=== PATIENT | female | born 1985 | race Caucasian/White ===

== ENCOUNTER 2023-09-16 09:46 | Outpatient (OUT) | payer OTHER, SELFPAY ==
--- NOTE | 2023-09-16 09:59 | US_ITS ---
The [address] [address] Patient Name: ANTONIO YOST MRN: [id number] date: 1985 Sex: F Assigned Patient Location: Current Patient Location: Accession/Order Number: [id number] Exam Date: 09/16/2023 10:15 Report Date: 09/19/2023 07:45 At the request of: YANN ESTRADA Procedure: US pelvis w/ transvaginal EXAMINATION: US pelvis w/ transvaginal HISTORY: pelvic pain and bloating COMPARISON: No relevant comparison available. TECHNIQUE: Transabdominal and/or transvaginal sonographic examination was performed as indicated by examination type. FINDINGS: UTERUS: Hysterectomy. RIGHT OVARY: Normal size and appearance. Duplex Doppler demonstrates normal waveform and flow; resistive index 0.5. Ovary size: 4.5 x 2.3 x 2.8 cm LEFT OVARY: Complex, avascular cystic structures with internal debris arising from within/from left ovary, largest is 7.0 cm. Duplex Doppler demonstrates normal waveform and flow; resistive index 0.5. Ovary size: 10.3 x 5.6 x 6.3 cm CUL-DE-SAC: Unremarkable. No significant free fluid. BLADDER: Unremarkable. OTHER: None. US/US pelvis w/ transvaginal IMPRESSION: 1. Several complex cysts arising from the left ovary, possibly endometriomas. Follow-up ultrasound evaluation of the pelvis in 6 weeks is recommended to document stability versus change. Electronically authenticated by: CEFERINO LUDWIG Date: 09/19/2023 07:45
--- NOTE | 2023-09-16 10:30 | MM_ITS ---
Patient Name: ANTONIO YOST MR#: [id number] : 1985 Exam Date: 09/16/2023 Ordering Doctor: YANG Redmond CNP RADIOLOGY REPORT PROCEDURE: MM TOMOSYNTHESIS SCREENING BI COMPARISON: MAMMO POST BIOPSY RIGHT, 04/26/2022. MG MAMM DIAGNOSTIC 3D SERVANDO CAD, 04/16/2022. INDICATIONS: encounter for screening mammogram for malignancy Calculator Name NCI Breast Cancer Risk Assessment Tool 5 Year Breast Cancer Risk 1.30% Lifetime Breast Cancer Risk 14.50% Personal Breast Cancer No Personal Ovarian Cancer No Treatments None Family Cancers Son with kidney cancer at age 3; Grandmother-maternal with leukemia cancer at age ~60; Brother with leukemia cancer at age 1. LOCATION: [facility] BREAST COMPOSITION: There are scattered areas of fibroglandular density. FINDINGS: DIAGNOSTIC CATEGORY 2--BENIGN FINDING. NO CHANGE FROM COMPARISON. Scattered benign-appearing calcifications are present. RIGHT BREAST: Stable lobular 3.7 cm previously biopsied mass right mid breast upper outer quadrant with an associated micro clip marker. LEFT BREAST: No significant suspicious finding. RECOMMENDATIONS: ROUTINE MAMMOGRAM AND CLINICAL EVALUATION IN 12 MONTHS. PLEASE NOTE: A NORMAL MAMMOGRAM DOES NOT EXCLUDE THE POSSIBILITY OF BREAST CANCER. A CLINICALLY SUSPICIOUS PALPABLE LUMP SHOULD BE BIOPSIED. Dictated by: Tyler Lacey MD on 09/16/2023 at 13:36 Approved by: Tyler Lacey MD on 09/16/2023 at 13:38
== END 2023-09-16 09:47 | disposition home or self-care (01) ==
PROVIDERS: PCP Nurse Practitioner; Visit Provider Nurse Practitioner
DX: R14.0 Abdominal distension (gaseous) (principal); R10.2 Pelvic and perineal pain; Z12.31 Encounter for screening mammogram for malignant neoplasm of breast; Z80.6 Family history of leukemia; Z80.51 Family history of malignant neoplasm of kidney; N83.292 Other ovarian cyst, left side
CPT/HCPCS: 76830; 76856; 77063; 77067

== ENCOUNTER 2023-09-21 08:21 | Outpatient (OUT) | payer OTHER, SELFPAY ==
--- OUTSIDE RECORDS SUMMARY | 2023-09-21 08:40 | XMS_ITS | CCD ---
Author Organization [facility]iniSyn[facility] Care Team Providers Care Millstone Cleaner Name Role Phone PCP, NO Primary Care Unavailable MENDEL CORADO Attending Unavailable MENDEL CORADO Referring Unavailable AICLINDA SERVIN Primary Care Physician Halley BARBOSA Attending Unavailable AICHLINDA MINAYA Referring Unavailabl e Halley BARBOSA Attending Unavailable Halley BARBOSA Attending Unavailable Halley BARBOSA Referring Unavailable AICHHOLZ, BOAT HAND LINDA Primary Care Unavailable AICHHOLZ, BOAT HAND LINDA Admitting Unavailable AICHHOLZ, BOAT HAND LINDA Consulting Unavailable AICHHOLZ, BOAT HAND LINDA Attending Unavailable AICHHOLZ, BOAT HAND LINDA Admitting Unavailable AICHHOLZ, BOAT HAND LINDA Consulting Unavailable AICHHOLZ, BOAT HAND LINDA Attending Unavailable AICHHOLZ, BOAT HAND LINDA Primary Care Unavailable AICHHOLZ, BOAT HAND LINDA Consulting Unavailable AICHHOLZ, BOAT HAND LINDA Attending Unavailable AICHHOLZ, BOAT HAND LINDA Admitting Unavailable AICHHOLZ, BOAT HAND LINDA Primary Care Unavailable DR TODD DORANTES Consulting Unavailable KIANA CHURCH Consulting Unavailable AICHHOLZ, BOAT HAND LINDA Consulting Unavailable AICHHOLZ, BOAT HAND LINDA Attending Unavailable AICHHOLZ, BOAT HAND LINDA Admitting Unavailable AICHHOLZ, BOAT HAND LINDA Primary Care Unavailable DR TODD DORANTES Consulting Unavailable NILL ., DR ROWLEY Attending Unavailable NILL ., DR ROWLEY Admitting Unavailable AICHHOLZ, BOAT HAND LINDA Primary Care Unavailable NILL ., DR ROWLEY Consulting Unavailable MINGO WHITMAN, VLAD Consulting Unavailable ALDO ELIZABETH Consulting Unavailable JED LINK Consulting Unavailable NILL ., DR ROWLEY Admitting Unavailable NILL ., DR ROWLEY Consulting Unavailable AICHHOLZ, BOAT HAND LINDA Primary Care Unavailable NILL ., DR ROWLEY Attending Unavailable AICHHOLZ, BOAT HAND LINDA Primary Care Unavailable RENZO ., DR RICHARDSON Admitting Unavailable RENZO ., DR RICHARDSON Consulting Unavailable RENZO ., DR RICHARDSON Attending Unavailable RENZO ., DR RICHARDSON Consulting Unavailable RENZO ., DR RICHARDSON Attending Unavailable RENZO ., DR RICHARDSON Admitting Unavailable AICHHOLZ, BOAT HAND LINDA Primary Care Unavailable AICHHOLZ, BOAT HAND LINDA Primary Care Unavailable RENZO ., DR RICHARDSON Consulting Unavailable RENZO ., DR RICHARDSON Attending Unavailable RENZO ., DR RICHARDSON Admitting Unavailable ROBERT HOPKINS Consulting Unavailable ABDI GALVAN Consulting Unavailable AICHHOLZ, BOAT HAND LINDA Primary Care Unavailable AICHHOLZ, BOAT HAND LINDA Attending Unavailable AICHHOLZ, BOAT HAND LINDA Admitting Unavailable AICHHOLZ, BOAT HAND LINDA Consulting Unavailable AICHHOLZ, BOAT HAND LINDA Consulting Unavailable AICHHOLZ, BOAT HAND LINDA Attending Unavailable AICHHOLZ, BOAT HAND LINDA Admitting Unavailable AICHHOLZ, BOAT HAND LINDA Primary Care Unavailable AICHHOLZ, BOAT HAND LINDA Admitting Unavailable AICHHOLZ, BOAT HAND LINDA Primary Care Unavailable AICHHOLZ, BOAT HAND LINDA Consulting Unavailable AICHHOLZ, BOAT HAND LINDA Attending Unavailable AICHHOLZ, BOAT HAND LINDA Primary Care Unavailable AICHHOLZ, BOAT HAND LINDA Admitting Unavailable AICHHOLZ, BOAT HAND LINDA Consulting Unavailable AICHHOLZ, BOAT HAND LINDA Attending Unavailable AICHHOLZ, LINDA Attending Unavailable Allergies Allergy Classification Reported Allergen(s) Allergy Type Date of Onset Reaction(s) Facility (3 sources) Cephalexin; Translations: [cephalexin] Drug Allergy Syncope (disorder) General Surgery [place] (2 sources) Cephalexin Drug Allergy [facility] Medications Current Medications Medication Drug Class(es) Dates Sig (Normalized) Sig (Original) busPIRone hydrochloride 15 mg oral tablet (2 sources) Start: 03-03-2022 busPIRone 15 mg Tab 22.5 mg = 1.5 tab(s), Oral, BID, Refills(s) 0 Start Date: 03/03/22 Status: Ordered clonazePAM 0.5 mg oral tablet (2 sources) Benzodiazepine Start: 03-03-2022 take 1 tablet by mouth three times daily ClonazePAM 0.5 mg Tab 0.5 mg = 1 tab(s), Oral, TID, Refills(s) 0 Start Date: 03/03/22 Status: Ordered escitalopram 20 mg oral tablet (2 sources) Serotonin Reuptake Inhibitor Start: 03-03-2022 take 1 tablet by mouth once daily Lexapro 20 mg Tab 20 mg = 1 tab(s), Oral, Daily, Refills(s) 0 Start Date: 03/03/22 Status: Ordered ferrous sulfate 325 mg delayed release oral tablet (2 sources) Start: 03-05-2022 take 1 tablet by mouth twice daily ferrous sulfate 325 mg oral enteric coated tablet 325 mg = 1 tab(s), Oral, BID, Refills(s) 0 Start Date: 03/05/22 Status: Ordered loratadine 10 mg oral tablet (2 sources) Start: 03-03-2022 take 1 tablet by mouth once daily loratadine 10 mg Tab 10 mg = 1 tab(s), Oral, Daily, Refills(s) 0 Start Date: 03/03/22 Status: Ordered Multi Vitamins oral tablet (2 sources) Start: 03-03-2022 take 1 tablet by mouth once daily Multi Vitamins oral tablet 1 tab(s), Oral, Daily, Refill(s) 0 Start Date: 03/03/22 Status: Ordered pantoprazole 40 mg delayed release oral tablet (2 sources) Proton Pump Inhibitor Start: 03-03-2022 take 1 tablet by mouth once daily Pantoprazole [address] Tab 40 mg = 1 tab(s), Oral, Daily, Refills(s) 0 Start Date: 03/03/22 Status: Ordered sucralfate 1000 mg oral tablet (1 source) Aluminum Complex Start: 04-14-2022 Carafate 1 gram Tab 1 gm = 1 tab(s), Oral, QIDACHS, Refills(s) 0 Start Date: 04/14/22 Status: Ordered Problems Active Problems Problem Classification Problem Date Documented Da te Episodic/Chronic Abdominal pain (5 sources) Pelvic and perineal pain; Translations: [Upper abdominal pain, unspecified] Onset: 04-07-2022 Episodic Anxiety disorders (3 sources) Mixed anxiety and depressive disorder; Translations: [Anxiety disorder, unspecified] Onset: 04-14-2022 03-03-2022 Chronic Blindness and vision defects (2 sources) Visual impairment 03-03-2022 Chronic Deficiency and other anemia (3 sources) Iron deficiency anemia; Translations: [Iron deficiency anemia, unspecified] Onset: 03-05-2022 Episodic Deficiency and other anemia (5 sources) Iron deficiency anemia, unspecified; Translations: [IRON DEFICIENCY ANEMIA UNSPECIFIED] Onset: 04-14-2022 Episodic Digestive congenital anomalies (1 source) Other specified congenital malformations of intestine; Translations: [OTH SPEC CONGEN MALFORM INTESTINE] Onset: 04-14-2022 Chronic Endometriosis (1 source) Endometriosis; Translations: [DEEP ENDOMETRIOSIS OF LEFT OVARY] Onset: 08-02-2022 Gastritis and duodenitis (1 source) Unspecified chronic gastritis without bleeding; Translations: [UNS CHRONIC GASTRITIS W/O BLEEDING] Onset: 04-14-2022 Chronic Gastritis and duodenitis (2 sources) Gastritis; Translations: [Other gastritis without bleeding] Onset: 04-14-2022 Episodic Menstrual disorders (6 sources) Dysmenorrhea, unspecified; Translations: [Excessive and frequent menstruation with regular cycle] Onset: 07-16-2022 Chronic Mood disorders (1 source) Mood disorders; Translations: [DEPRESSION UNSPECIFIED] Onset: 04-14-2022 Other aftercare (1 source) Other residential (current) drug therapy; Translations: [OTH SENIOR CARE CURRENT DRUG THERAPY] Onset: 08-02-2022 Episodic Other female genital disorders (1 source) Unspecified dyspareunia; Translations: [UNSPECIFIED DYSPAREUNIA] Onset: 08-02-2022 Chronic Other female genital disorders (1 source) Other specified conditions associated with female genital organs and menstrual cycle; Translations: [OTH SPEC COND FE GEN ORG MENST CYCL] Onset: 08-02-2022 Episodic Other gastrointestinal disorders (6 sources) Diarrhea; Translations: [Diarrhea, unspecified] Onset: 03-05-2022 Episodic Other gastrointestinal disorders (1 source) Altered bowel function; Translations: [Change in bowel habit] Onset: 03-05-2022 Episodic Other gastrointestinal disorders (2 sources) Alteration in bowel elimination 03-05-2022 Episodic Other nutritional; endocrine; and metabolic disorders (2 sources) Body mass index 30+ - obesity 03-05-2022 Chronic Other nutritional; endocrine; and metabolic disorders (2 sources) Obesity 03-03-2022 Chronic Other nutritional; endocrine; and metabolic disorders (1 source) Body mass index (BMI) 31.0-31.9, adult; Translations: [BODY MASS INDEX BMI 31.0-31.9 ADULT] Onset: 04-14-2022 Chronic Other nutritional; endocrine; and metabolic disorders (1 source) Obesity, unspecified; Translations: [OBESITY UNSPECIFIED] Onset: 02-05-2022 Chronic Other nutritional; endocrine; and metabolic disorders (1 source) Body mass index (BMI) 30.0-30.9, adult; Translations: [BODY MASS INDEX BMI 30.0-30.9 ADULT] Onset: 02-05-2022 Chronic Other nutritional; endocrine; and metabolic disorders (3 sources) Loss of appetite; Translations: [Anorexia] Onset: 03-05-2022 Episodic Other nutritional; endocrine; and metabolic disorders (2 sources) Weight loss 03-03-2022 Episodic Unclassified (1 source) PERSONAL HISTORY OF COVID-19; Translations: [PERSONAL HISTORY OF COVID-19] Onset: 04-14-2022 Unclassified (1 source) CONTACT W/AND (SUSP) EXPOS COVID-19; Translations: [CONTACT W/AND (SUSP) EXPOS COVID-19] Onset: 04-03-2022 Past or Other Problems Problem Classification Problem Date Documented Da te Episodic/Chronic Genitourinary symptoms and ill-defined conditions (1 source) Other polyuria; Translations: [OTHER POLYURIA] Onset: 02-08-2022 Episodic Nausea and vomiting (4 sources) Nausea; Translations: [Nausea] Onset: 03-05-2022 Episodic Nonmalignant breast conditions (4 sources) Unspecified lump in the right breast, upper outer quadrant; Translations: [UNS LUMP IN RT BREAST UP OUTR QUAD] Onset: 04-23-2022 Episodic Other and unspecified benign neoplasm (1 source) Benign neoplasm of right breast; Translations: [BENIGN NEOPLASM OF RIGHT BREAST] Onset: 04-29-2022 Episodic Other gastrointestinal disorders (5 sources) Diarrhea, unspecified; Translations: [DIARRHEA UNSPECIFIED] Onset: 02-04-2022 Episodic Other nutritional; endocrine; and metabolic disorders (5 sources) Abnormal weight loss; Translations: [ABNORMAL WEIGHT LOSS] Onset: 02-02-2022 Episodic Other screening for suspected conditions (not mental disorders or infectious disease) (4 sources) Encounter for screening for malignant neoplasm of cervix; Translations: [ENC SCREENING MALIG NEOPLASM CERV] Onset: 03-11-2022 Episodic Other skin disorders (1 source) Nonscarring hair loss, unspecified; Translations: [NONSCARRING HAIR LOSS UNSPECIFIED] Onset: 02-08-2022 Episodic Ovarian cyst (1 source) Unspecified ovarian cyst, left side; Translations: [UNSPECIFIED OVARIAN CYST LEFT SIDE] Onset: 04-23-2022 Episodic Results Test Name Value Interpretation Reference Range Facility BUNon 07-17-2022 Urea nitrogen [Mass/Vol] 9.0 mg/dL Normal 7.0-18.0 [facility] Comment on above: Performed By: #### C DANY, BUN #### [facility] [address] [place] [address] Dr. Marianela Villa CBC AUTO DIFFon 07-17-2022 BASO # 0.0 103/ul Normal 0.0-0.1 [facility] Comment on above: Performed By: #### C DANY, BUN #### [facility] [address] [place] [address] Dr. Marianela Vilal Basophils/100 WBC (Bld) 0.1 % Critically low 0.2-2.0 [facility] Comment on above: Performed By: #### C DANY, BUN #### [facility] [address] [place] [address] Dr. Marianela Villa EO # 0.0 103/ul Normal 0.0-0.7 [facility] Comment on above: Performed By: #### C DANY, BUN #### [facility] [address] [place] [address] Dr. Marianela Villa Eosinophils/100 WBC (Bld) 0.0 % Critically low 0.9-7.0 [facility] Comment on above: Performed By: #### C DANY, BUN #### [facility] [address] [place] [address] Dr. Marianela Villa Erythrocyte distribution width (RBC) [Ratio] 14.5 % Normal 11.0-15.0 [facility] Comment on above: Performed By: #### C DANY, BUN #### [facility] [address] [place] [address] Dr. Marianela Villa Hematocrit (Bld) [Volume fraction] 29.9 % Critically low 36.0-48.0 [facility] Comment on above: Performed By: #### C DANY, BUN #### [facility] [address] [place] [address] Dr. Marianela Villa Hemoglobin (Bld) [Mass/Vol] 10.0 g/dL Critically low 12.0-16.0 [facility] Comment on above: Performed By: #### C DANY, BUN #### [facility] [address] [place] [address] Dr. Marianela Villa IG # 0.04 10e3/ul Critically high 0.00-0.03 [facility] Comment on above: Performed By: #### C DANY, BUN #### [facility] [address] [place] [address] Dr. Marianela Villa IG % 0.4 % Normal 0.0-0.5 [facility] Comment on above: Performed By: #### C DANY, BUN #### [facility] [address] [place] [address] Dr. Marianela Villa LYMPH # 1.2 103/ul Normal 1.2-3.8 [facility] Comment on above: Performed By: #### C DANY, BUN #### [facility] [address] [place] [address] Dr. Marianela Villa Lymphocytes/100 WBC (Bld) 12.1 % Critically low 20.5-60.0 [facility] Comment on above: Performed By: #### C DANY, BUN #### [facility] [address] [place] [address] Dr. Marianela Villa MANUAL DIFF REQ NO Normal [facility] Comment on above: Performed By: #### C DANY, BUN #### [facility] [address] [place] [address] Dr. Marianela Villa MCH (RBC) [Entitic mass] 31.3 pg Normal 26.7-34.0 [facility] Comment on above: Performed By: #### C DANY, BUN #### [facility] [address] [place] [address] Dr. Marianela Villa MCHC (RBC) [Mass/Vol] 33.4 g/dL Normal 29.9-35.2 [facility] Comment on above: Performed By: #### C DANY, BUN #### [facility] [address] [place] [address] Dr. Marianela Villa MCV (RBC) [Entitic vol] 93.7 fL Normal 81.0-99.0 [facility] Comment on above: Performed By: #### C DANY, BUN #### [facility] [address] [place] [address] Dr. Marianela Villa MONO # 1.0 103/ul Critically high 0.3-0.8 [facility] Comment on above: Performed By: #### C DANY, BUN #### [facility] [address] [place] [address] Dr. Marianela Villa Monocytes/100 WBC (Bld) 10.2 % Normal 1.7-12.0 [facility] Comment on above: Performed By: #### C DANY, BUN #### [facility] [address] [place] [address] Dr. Marianela Villa NEUT # 7.7 103/ul Critically high 1.4-6.5 [facility] Comment on above: Performed By: #### C DANY, BUN #### [facility] [address] [place] [address] Dr. Marianela Villa Neutrophils/100 WBC (Bld) 77.2 % Critically high 43.0-75.0 [facility] Comment on above: Performed By: #### C DANY, BUN #### [facility] [address] [place] [address] Dr. Marianela Villa Platelet mean volume (Bld) [Entitic vol] 10.9 fL Normal 9.5-13.5 [facility] Comment on above: Performed By: #### C DANY, BUN #### [facility] [address] [place] [address] Dr. Marianela Villa PLT 188 103/ul Normal 150-450 [facility] Comment on above: Performed By: #### C DANY, BUN #### [facility] [address] [address] [address] Marianela Villa RBC 3.19 106/ul Critically low 4.20-5.40 [facility] Comment on above: Performed By: #### C DANY, BUN #### [facility] [address] [address] [address] Marianela Villa WBC 10.0 103/ul Normal 4.0-11.0 [facility] Comment on above: Performed By: #### C DANY, BUN #### [facility] [address] [place] [address] Dr. Marianela Villa CREATININEon 07-17-2022 Creatinine [Mass/Vol] 0.78 mg/dL Normal 0.55-1.02 [facility] Comment on above: Performed By: #### C DANY, BUN #### [facility] [address] [place] [address] Dr. Marianela Villa EGFR-AF [place] >60 Normal >=60 [facility] Comment on above: Performed By: #### C DANY, BUN #### [facility] [address] [place] [address] Dr. Marianela Villa EGFR-NON AF [place] >60 Normal >=60 [facility] Comment on above: Performed By: #### C DANY, BUN #### [facility] [address] [place] [address] Dr. Marianela Villa PREG QUANT HCGon 07-16-2022 HCG QUANT <1 Normal [facility] Comment on above: Performed By: #### P REGQNT #### [facility] [address] [place] [address] Dr. Marianela Villa HCG RANGE SEE BELOW Normal [facility] Comment on above: Result Comment: 5-50 0.2-1 WEEK 50-500 1-2 WEEKS 100-5,000 2-3 WEEKS 500-10,000 3-4 WEEKS 1,000-50,000 4-5 WEEKS 10,000-100,000 5-6 WEEKS 15,000-200,000 6-8 WEEKS 10,000-100,000 2-3 MONTHS Performed By: #### P REGQNT #### [facility] [address] [address] [address] Marianela Villa TYPE AND SCREENon 07-13-2022 TYPE AND SCREEN Negative Normal [facility] Comment on above: Performed By: #### C DANY, BUN #### [facility] [address] [place] [address] Dr. Marianela Villa CBC AUTO DIFFon 07-01-2022 BASO # 0.0 103/ul Normal 0.0-0.1 [facility] Comment on above: Performed By: #### C BC #### [facility] [address] [place] [address] Dr. Marianela Villa Basophils/100 WBC (Bld) 0.3 % Normal 0.2-2.0 [facility] Comment on above: Performed By: #### C BC #### [facility] [address] [place] [address] Dr. Marianela Villa EO # 0.1 103/ul Normal 0.0-0.7 [facility] Comment on above: Performed By: #### C BC #### [facility] [address] [place] [address] Dr. Marianela Villa Eosinophils/100 WBC (Bld) 1.6 % Normal 0.9-7.0 [facility] Comment on above: Performed By: #### C BC #### [facility] [address] [place] [address] Dr. Marianela Villa Erythrocyte distribution width (RBC) [Ratio] 13.9 % Normal 11.0-15.0 [facility] Comment on above: Performed By: #### C BC #### [facility] [address] [place] [address] Dr. Marianela Villa Hematocrit (Bld) [Volume fraction] 37.9 % Normal 36.0-48.0 [facility] Comment on above: Performed By: #### C BC #### [facility] [address] [place] [address] Dr. Marianela Villa Hemoglobin (Bld) [Mass/Vol] 12.3 g/dL Normal 12.0-16.0 [facility] Comment on above: Performed By: #### C BC #### [facility] [address] [place] [address] Dr. Marianela Villa IG # 0.01 10e3/ul Normal 0.00-0.03 [facility] Comment on above: Performed By: #### C BC #### [facility] [address] [place] [address] Dr. Marianela Villa IG % 0.2 % Normal 0.0-0.5 [facility] Comment on above: Performed By: #### C BC #### [facility] [address] [place] [address] Dr. Marianela Villa LYMPH # 1.6 103/ul Normal 1.2-3.8 [facility] Comment on above: Performed By: #### C BC #### [facility] [address] [place] [address] Dr. Marianela Villa Lymphocytes/100 WBC (Bld) 24.6 % Normal 20.5-60.0 [facility] Comment on above: Performed By: #### C BC #### [facility] [address] [place] [address] Dr. Marianela Villa MANUAL DIFF REQ NO Normal [facility] Comment on above: Performed By: #### C BC #### [facility] [address] [place] [address] Dr. Marianela Villa MCH (RBC) [Entitic mass] 30.5 pg Normal 26.7-34.0 [facility] Comment on above: Performed By: #### C BC #### [facility] [address] [place] [address] Dr. Marianela Villa MCHC (RBC) [Mass/Vol] 32.5 g/dL Normal 29.9-35.2 [facility] Comment on above: Performed By: #### C BC #### [facility] [address] [place] [address] Dr. Marianeal Villa MCV (RBC) [Entitic vol] 94.0 fL Normal 81.0-99.0 [facility] Comment on above: Performed By: #### C BC #### [facility] [address] [place] [address] Dr. Marianela Villa MONO # 0.5 103/ul Normal 0.3-0.8 [facility] Comment on above: Performed By: #### C BC #### [facility] [address] [address] [address] Marianela Villa Monocytes/100 WBC (Bld) 7.6 % Normal 1.7-12.0 [facility] Comment on above: Performed By: #### C BC #### [facility] [address] [place] [address] Dr. Marianela Villa NEUT # 4.2 103/ul Normal 1.4-6.5 [facility] Comment on above: Performed By: #### C BC #### [facility] [address] [place] [address] Dr. Marianela Villa Neutrophils/100 WBC (Bld) 65.7 % Normal 43.0-75.0 [facility] Comment on above: Performed By: #### C BC #### [facility] [address] [place] [address] Dr. Marianela Villa Platelet mean volume (Bld) [Entitic vol] 11.0 fL Normal 9.5-13.5 [facility] Comment on above: Performed By: #### C BC #### [facility] [address] [place] [address] Dr. Marianela Villa PLT 251 103/ul Normal 150-450 [facility] Comment on above: Performed By: #### C BC #### [facility] [address] [place] [address] Dr. Marianela Villa RBC 4.03 106/ul Critically low 4.20-5.40 [facility] Comment on above: Performed By: #### C BC #### [facility] [address] [place] [address] Dr. Marianela Villa WBC 6.4 103/ul Normal 4.0-11.0 [facility] Comment on above: Performed By: #### C BC #### [facility] [address] [place] [address] Dr. Marianela Villa LIVER PROFILEon 07-01-2022 Albumin [Mass/Vol] 3.7 g/dL Normal 3.4-5.0 [facility] Comment on above: Performed By: #### B MP, LIVER #### [facility] [address] [address] [address] Marianela Villa Albumin/Globulin [Mass ratio] 1.0 {ratio} Normal [facility] Comment on above: Performed By: #### B MP, LIVER #### [facility] [address] [place] [address] Dr. Marianela Villa ALP [Catalytic activity/Vol] 96 U/L Normal 46-116 [facility] Comment on above: Performed By: #### B MP, LIVER #### [facility] [address] [place] [address] Dr. Marianela Villa ALT [Catalytic activity/Vol] 25 U/L Normal 14-59 [facility] Comment on above: Performed By: #### B MP, LIVER #### [facility] [address] [place] [address] Dr. Marianela Villa AST [Catalytic activity/Vol] 16 U/L Normal 15-37 [facility] Comment on above: Performed By: #### B MP, LIVER #### [facility] [address] [place] [address] Dr. Marianela Villa BILI, CONJUGATED 0.0 mg/dL Normal 0.0-0.2 [facility] Comment on above: Performed By: #### B MP, LIVER #### [facility] [address] [place] [address] Dr. Marianela Villa Bilirubin [Mass/Vol] 0.2 mg/dL Normal 0.2-1.0 [facility] Comment on above: Performed By: #### B MP, LIVER #### [facility] [address] [place] [address] Dr. Marianela Villa Globulin (S) [Mass/Vol] 3.7 g/dL Normal [facility] Comment on above: Performed By: #### B MP, LIVER #### [facility] [address] [place] [address] Dr. Marianela Villa Protein [Mass/Vol] 7.4 g/dL Normal 6.4-8.2 [facility] Comment on above: Performed By: #### B MP, LIVER #### [facility] [address] [place] [address] Dr. Marianela Villa PROF CHEM 8 (BAS METB)on Anion gap [Moles/Vol] 13.2 mmol/L Normal [facility] Comment on above: Performed By: #### B MP, LIVER #### [facility] [address] [place] [address] Dr. Marianela Villa Calcium [Mass/Vol] 9.2 mg/dL Normal 8.5-10.1 [facility] [facility] Comment on above: Performed By: #### B MP, LIVER #### [facility] [address] [place] [address] Dr. Marianela Villa Chloride [Moles/Vol] 103 mmol/L Normal 98-107 [facility] Comment on above: Performed By: #### B MP, LIVER #### [facility] [address] [place] [address] Dr. Marianela Villa CO2 [Moles/Vol] 28.0 mmol/L Normal 21.0-32.[address] [facility] Comment on above: Performed By: #### B MP, LIVER #### [facility] [address] [place] [address] Dr. Marianela Villa Creatinine [Mass/Vol] 0.75 mg/dL Normal 0.55-1.02 [facility] Comment on above: Performed By: #### B MP, LIVER #### [facility] [address] [place] [address] Dr. Marianela Villa EGFR-AF [place] >60 Normal >=[address] [facility] Comment on above: Performed By: #### B MP, LIVER #### [facility] [address] [place] [address] Dr. Marianela Villa EGFR-NON AF [place] >60 Normal >=60 [facility] Comment on above: Performed By: #### B MP, LIVER #### [facility] [address] [address] [address] Marianela Villa Glucose [Mass/Vol] 86 mg/dL Normal 74-106 [facility] Comment on above: Performed By: #### B MP, LIVER #### [facility] [address] [place] [address] Dr. Marianela Villa Potassium [Moles/Vol] 4.2 mmol/L Normal 3.5-5.1 [facility] Comment on above: Performed By: #### B MP, LIVER #### [facility] [address] [place] [address] Dr. Marianela Villa Sodium [Moles/Vol] 140 mmol/L Normal 136-145 [facility] Comment on above: Performed By: #### B MP, LIVER #### [facility] [address] [place] [address] Dr. Marianela Villa Urea nitrogen [Mass/Vol] 8.0 mg/dL Normal 7.0-18.0 [facility] Comment on above: Performed By: #### B MP, LIVER #### [facility] [address] [place] [address] Dr. Marianela Villa Urea nitrogen/Creatinin e [Mass ratio] 10.7 mg/mg Normal [facility] Comment on above: Performed By: #### B MP, LIVER #### [facility] [address] [place] [address] Dr. Marianela Villa PROTIMEon 07-01-2022 INR Coag (PPP) [Relative time] 1.00 {INR} Normal [facility] Comment on above: Performed By: #### C DANY, BUN #### [facility] [address] [place] [address] Dr. Marianela Villa INR GUIDELINES SEE BELOW Normal [facility] Comment on above: Result Comment: MCKENNA RED INR: 2.0 - 3.0 CONDITIONS NOT LISTED BELOW 2.5 - 3.5 FOR PROSTHETIC HEART VALVE REPLACEMENT 2.5 - 3.5 RECURRENT THROMBOSIS Performed By: #### C DANY, BUN #### [facility] [address] [place] [address] Dr. Marianela Villa PT Coag (PPP) [Time] 10.6 s Normal 9.0-11.6 [facility] Comment on above: Performed By: #### C DANY BUN #### [facility] [address] [place] [address] Dr. Marianela Villa PTTon 07-01-2022 aPTT Coag (Bld) [Time] 25.0 s Normal 22.3-36.2 [facility] Comment on above: Performed By: #### C DANY BUN #### [facility] [address] [place] [address] Dr. Marianela Villa CBC AUTO DIFFon 05-05-2022 BASO # 0.0 103/ul Normal 0.0-0.1 [facility] Comment on above: Performed By: #### P REG #### [facility] [address] [place] [address] Dr. Marianela Villa Basophils/100 WBC (Bld) 0.4 % Normal 0.2-2.0 [facility] Comment on above: Performed By: #### P REG #### [facility] [address] [place] [address] Dr. Marianela Villa EO # 0.1 103/ul Normal 0.0-0.7 [facility] Comment on above: Performed By: #### P REG #### [facility] [address] [place] [address] Dr. Marianela Villa Eosinophils/100 WBC (Bld) 0.9 % Normal 0.9-7.0 [facility] Comment on above: Performed By: #### P REG #### [facility] [address] [place] [address] Dr. Marianela Villa Erythrocyte distribution width (RBC) [Ratio] 16.8 % Critically high 11.0-15.0 [facility] Comment on above: Performed By: #### P REG #### [facility] [address] [place] [address] Dr. Marianela Villa Hematocrit (Bld) [Volume fraction] 40.8 % Normal 36.0-48.0 [facility] Comment on above: Performed By: #### P REG #### [facility] [address] [place] [address] Dr. Marianela Villa Hemoglobin (Bld) [Mass/Vol] 13.0 g/dL Normal 12.0-16.0 [facility] Comment on above: Performed By: #### P REG #### [facility] [address] [place] [address] Dr. Marianela Villa IG # 0.02 10e3/ul Normal 0.00-0.03 [facility] Comment on above: Performed By: #### P REG #### [facility] [address] [place] [address] Dr. Marianela Villa IG % 0.3 % Normal 0.0-0.5 [facility] Comment on above: Performed By: #### P REG #### [facility] [address] [place] [address] Dr. Marianela Villa LYMPH # 1.6 103/ul Normal 1.2-3.8 [facility] Comment on above: Performed By: #### P REG #### [facility] [address] [place] [address] Dr. Marianela Villa Lymphocytes/100 WBC (Bld) 24.1 % Normal 20.5-60.0 [facility] Comment on above: Performed By: #### P REG #### [facility] [address] [place] [address] Dr. Marianela Villa MANUAL DIFF REQ NO Normal [facility] Comment on above: Performed By: #### P REG #### [facility] [address] [place] [address] Dr. Marianela Villa MCH (RBC) [Entitic mass] 30.3 pg Normal 26.7-34.0 [facility] Comment on above: Performed By: #### P REG #### [facility] [address] [place] [address] Dr. Marianela Villa MCHC (RBC) [Mass/Vol] 31.9 g/dL Normal 29.9-35.2 [facility] Comment on above: Performed By: #### P REG #### [facility] [address] [address] [address] Marianela Villa MCV (RBC) [Entitic vol] 95.1 fL Normal 81.0-99.0 [facility] Comment on above: Performed By: #### P REG #### [facility] [address] [place] [address] Dr. Marianela Villa MONO # 0.5 103/ul Normal 0.3-0.8 [facility] Comment on above: Performed By: #### P REG #### [facility] [address] [place] [address] Dr. Marianela Villa Monocytes/100 WBC (Bld) 7.6 % Normal 1.7-12.0 [facility] Comment on above: Performed By: #### P REG #### [facility] [address] [place] [address] Dr. Marianela Villa NEUT # 4.5 103/ul Normal 1.4-6.5 [facility] Comment on above: Performed By: #### P REG #### [facility] [address] [place] [address] Dr. Marianela Villa Neutrophils/100 WBC (Bld) 66.7 % Normal 43.0-75.0 [facility] Comment on above: Performed By: #### P REG #### [facility] [address] [place] [address] Dr. Marianela Villa Platelet mean volume (Bld) [Entitic vol] 10.0 fL Normal 9.5-13.5 [facility] Comment on above: Performed By: #### P REG #### [facility] [address] [place] [address] Dr. Marianela Villa PLT 253 103/ul Normal 150-450 [facility] Comment on above: Performed By: #### P REG #### [facility] [address] [place] [address] Dr. Marianela Villa RBC 4.29 106/ul Normal 4.20-5.40 [facility] Comment on above: Performed By: #### P REG #### [facility] [address] [place] [address] Dr. Marianela Villa WBC 6.8 103/ul Normal 4.0-11.0 [facility] Comment on above: Performed By: #### P REG #### [facility] [address] [address] [address] Marianela Villa FERRITINon 05-05-2022 Ferritin [Mass/Vol] 21.0 ng/mL Normal 6.2-137.0 [facility] Comment on above: Performed By: #### P REG #### [facility] [id number] Marianela Villa IRONon 05-05-2022 Iron [Mass/Vol] 128.0 ug/dL Normal 50.0-170.[address] [facility] Comment on above: Performed By: #### P REG #### [facility] [address] [address] [address] Marianela Villa US VAC ASST BX BREAST RT W C LIPon 04-29-2022 US VAC ASST BX BREAST RT W CLIP Begin Addendum #1 COLLECTED DATE/TIME: 04/26/2022, 11:20 EST Final Diagnosis Report for [facility] [place] RIGHT BREAST 1 O'CLOCK MASS; BIOPSY: - FIBROEPITHELIAL LESION, FAVOR FIBROADENOMA. 04/29/2022 Faxed to Linda Redmond CNP. Verified with Chaya that report was present in the office. Original Report EXAM: US VAC ASST BX BREAST RT W CLIP HISTORY: Lump in right breast COMPARISON: Ultrasound breast right 04/16/2022 TECHNIQUE: After obtaining informed consent, ultrasound-guided biopsy was performed in the usual sterile manner. The location of the biopsy was then marked as indicated below. FINDINGS: Specimen #, Location: 3 core samples; right breast 1:00 hypoechoic dense 2.8 cm mass. Biopsy Needle: 13 gauge vacuum core biopsy needle. Marker(s): A single metallic marker was placed in the appropriate targeted location. Medication: Buffered 1% Lidocaine with epinephrine administered locally. Complications: None. Pathology: Pending. IMPRESSION: 1. Uneventful ultrasound-guided breast biopsy. 2. Pathology results are pending. An addendum to this report will be provided after pathology results are available. Normal [facility] MAMMO POST BIOPSY RIGHTon MAMMO POST BIOPSY RIGHT Patient: ANTONIO MOY Exam Date: 04/26/2022 : 1985 Gender:F Ordering : YANG [facility]MON[facility] Admission #: [id number] Family : Order #: [id number] CLICK HERE TO VIEW EXAM RADIOLOGY REPORT PROCEDURE: MAMMOGRAM POST BIOPSY IMAGES COMPARISON: US BREAST RIGHT LIMITED, 04/16/2022. INDICATIONS: Lump in right breast BREAST COMPOSITION: FINDINGS: BIOPSY MARKER: A metallic marker has been placed in the targeted location within the upper inner quadrant of the right breast. BREAST FINDINGS: Expected post biopsy findings. RECOMMENDATIONS: Dictated by: Todd Dorantes M.D. on 04/26/2022 at 13:54 Approved by: Todd Dorantes M.D. on 04/26/2022 at 13:55 Normal [facility] MG MAMM DIAGNOSTIC 3D SERVANDO CA Don 04-16-2022 MG MAMM DIAGNOSTIC 3D SERVANDO CAD Patient: ANTONIO MOY Exam Date: 04/16/2022 : 1985 Gender:F Ordering : YANG LINDA IVANAlexEMELYJamila [facility] Admission #: [id number] Family : Order #: [id number] CLICK HERE TO VIEW EXAM RADIOLOGY REPORT PROCEDURE: MAMMOGRAM DIAGNOSTIC 3D BILATERAL CAD, 04/16/2022, 09:36 ULTRASOUND BREAST RIGHT LIMITED, 04/16/2022, 10:06 COMPARISON: None. INDICATIONS: Lump in upper outer quadrant of right breast Calculator Name NCI Breast Cancer Risk Assessment Tool 5 Year Breast Cancer Risk 0.40% Lifetime Breast Cancer Risk 9.10% Personal Breast Cancer No Personal Ovarian Cancer No Treatments None Family Cancers Son with kidney cancer at age 3; Grandmother-maternal with leukemia cancer at age 60; Brother with leukemia cancer at age 1. LOCATION: [facility] BREAST COMPOSITION: Scattered areas fibroglandular density. FINDINGS: DIAGNOSTIC CATEGORY 4--SUSPICIOUS FOR MALIGNANCY. FINDING DOES NOT EXHIBIT CLASSIC FINDINGS OF BREAST CANCER: RIGHT BREAST: Smoothly circumscribed lobular 3.7 x 2.9 x 2.5 cm mass within the upper inner quadrant mid breast which corresponds to the patient's palpable lump. Ultrasound evaluation demonstrates a slightly heterogeneous mass with well-defined margins at the 1 o'clock position 8.6 cm from the nipple, 3.4 x 2.2 x 1.8 cm. No significant internal blood flow. I suspect fibroadenoma, but neoplasm should be excluded. Ultrasound-guided tissue sampling is recommended. LEFT BREAST: No significant suspicious finding. RECOMMENDATIONS: ULTRASOUND-GUIDED CORE BIOPSY: RIGHT BREAST PLEASE NOTE: A NORMAL MAMMOGRAM DOES NOT EXCLUDE THE POSSIBILITY OF BREAST CANCER. A CLINICALLY SUSPICIOUS PALPABLE LUMP SHOULD BE BIOPSIED. Dictated by: Todd Dorantes M.D. on 04/16/2022 at 13:34 Approved by: Todd Dorantes M.D. on 04/16/2022 at 13:39 Normal [facility] US BREAST RIGHT LIMITEDon US BREAST RIGHT LIMITED Patient: ANTONIO MOY Exam Date: 04/16/2022 : 1985 Gender:F Ordering : YANG [facility]MON[facility] Admission #: [id number] Family : Order #: [id number] CLICK HERE TO VIEW EXAM RADIOLOGY REPORT PROCEDURE: MAMMOGRAM DIAGNOSTIC 3D BILATERAL CAD, 04/16/2022, 09:36 ULTRASOUND BREAST RIGHT LIMITED, 04/16/2022, 10:06 COMPARISON: None. INDICATIONS: Lump in upper outer quadrant of right breast Calculator Name NCI Breast Cancer Risk Assessment Tool 5 Year Breast Cancer Risk 0.40% Lifetime Breast Cancer Risk 9.10% Personal Breast Cancer No Personal Ovarian Cancer No Treatments None Family Cancers Son with kidney cancer at age 3; Grandmother-maternal with leukemia cancer at age 60; Brother with leukemia cancer at age 1. LOCATION: [facility] BREAST COMPOSITION: Scattered areas fibroglandular density. FINDINGS: DIAGNOSTIC CATEGORY 4--SUSPICIOUS FOR MALIGNANCY. FINDING DOES NOT EXHIBIT CLASSIC FINDINGS OF BREAST CANCER: RIGHT BREAST: Smoothly circumscribed lobular 3.7 x 2.9 x 2.5 cm mass within the upper inner quadrant mid breast which corresponds to the patient's palpable lump. Ultrasound evaluation demonstrates a slightly heterogeneous mass with well-defined margins at the 1 o'clock position 8.6 cm from the nipple, 3.4 x 2.2 x 1.8 cm. No significant internal blood flow. I suspect fibroadenoma, but neoplasm should be excluded. Ultrasound-guided tissue sampling is recommended. LEFT BREAST: No significant suspicious finding. RECOMMENDATIONS: ULTRASOUND-GUIDED CORE BIOPSY: RIGHT BREAST PLEASE NOTE: A NORMAL MAMMOGRAM DOES NOT EXCLUDE THE POSSIBILITY OF BREAST CANCER. A CLINICALLY SUSPICIOUS PALPABLE LUMP SHOULD BE BIOPSIED. Dictated by: Todd Dorantes M.D. on 04/16/2022 at 13:34 Approved by: Todd Dorantes M.D. on 04/16/2022 at 13:39 Normal [facility] US PELVIS AND TRANSVAGon US PELVIS AND TRANSVAG EXAM: Pelvic Ultrasound HISTORY: Excessive and frequent menstruation the COMPARISON: None. TECHNIQUE: Transabdominal and transvaginal scanning was performed FINDINGS: Scanning of the pelvis demonstrates uterus to measure 13.8 x 8.3 x 6.2 cm. Endometrial complex measures 12 mm. Right ovary measures 2.8 x 1.6 x 1.6 cm. Color-flow is noted. Resistive indexes 0.6. No masses are noted. Left ovary measures 5.8 x 6 x 4.4 cm. Color-flow is noted. Resistive indexes 0.4. Within the left ovary there is a 3.9 x 3.3 cm cyst. No fluid is noted in the cul-de-sac. IMPRESSION: 1. Normal-appearing uterus and endometrial complex. 2. Normal right ovary. 3. 3.9 x 3.3 cm cyst within the left ovary. Electronically authenticated by: KIANA CHURCH Date: 2022-04-16 10:01 Normal [facility] General Surgery Office/Clini c Noteon 04-14-2022 General Surgery Office/Clinic Note Chief Complaint EGD and colonoscopy follow up HPI Staff 7 day post operative follow up post EGD with antral biopsy and colonoscopy with multiple biopsies. She was unable to get Carafate from pharmacy due to availability. History of Present Illness 1 week s/p EGD and colonoscopy due to abd pain, loose stools and wt loss; egd with mild antral gastritis, bx negative for H pylori, bile reflux; normal colon , with normal random biopsies of terminal ileum and colon; patient reports unable to get Carafate, same symptoms, having w/u for fibroids, may be contributing to symptoms. Review of Systems ROS - Provider Constitutional: no fever, no sweats, no weight loss. Eyes: no glasses, no blurred vision, no visual loss. ENMT: no dentures, no hoarseness, no swallowing difficulties, no hearing loss, no ear infection(s), no nose bleeds. Cardiovascular: normal blood pressure, no chest pain, regular heartbeat, no heart murmur. Respiratory: no shortness of breath, no cough, no asthma, no wheezing. Gastrointestinal: no nausea, no vomiting, no diarrhea, no constipation, no blood in stool, no change in bowel habits, no abdominal pain, no hepatitis. Genitourinary: no kidney stones, no urine infection, no dysuria. Musculoskeletal: no pain, no weakness. Skin: no changing moles, no rash, no skin lumps. Neurologic: no seizures, no epilepsy, no headache. Psychiatric: no emotional or psychiatric problem. Heme/Lymph: no bleeding problems, no anemia, no blood clots, no transfusions. Allergy/Immunologic: no swollen lymph nodes/glands, no IV drug abuse. Other: Additional ROS info: Except as noted in the above Review of Systems and in the History of Present Illness, all other systems have been reviewed and are negative or noncontributory. Assessment/Plan 1. 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 2. Frequent loose stools (R19.7: Diarrhea, unspecified) likely component of IBS; recommend high fiber diet and daily fiber supplement. Follow-up No qualifying data available Problem List/Past Medical History Ongoing Anxiety and depression Bile reflux gastritis BMI 31.0-31.9,adult Change in bowel habits Diarrhea Frequent loose stools Iron deficiency anemia Loss of appetite for more than 2 weeks Nausea Obesity Visual impairment Weight loss Historical No qualifying data Procedure/Surgical History Colonoscopy (04/07/2022), EGD - Esophagogastroduodenoscopy (04/07/2022), section (2008), section (2007), Extraction of wisdom tooth. Medications busPIRone 15 mg Tab, 22.5 mg= 1.5 tab(s), Oral, BID Carafate 1 gram Tab, 1 gm= 1 tab(s), Oral, QIDACHS ClonazePAM 0.5 mg Tab, 0.5 mg= 1 tab(s), Oral, TID ferrous sulfate 325 mg oral enteric coated tablet, 325 mg= 1 tab(s), Oral, BID Lexapro 20 mg Tab, 20 mg= 1 tab(s), Oral, Daily loratadine 10 mg Tab, 10 mg= 1 tab(s), Oral, Daily Multi Vitamins oral tablet, 1 tab(s), Oral, Daily Pantoprazole [address] Tab, 40 mg= 1 tab(s), Oral, Daily Allergies Keflex (Syncope) Social History Alcohol - Denies Alcohol Use, 03/05/2022 Substance Abuse - Denies Substance Abuse, 03/05/2022 Tobacco Never (less than 100 in lifetime) Tobacco Use:. Never Smokeless Tobacco Use:., 03/05/2022 Family History Heart failure: Mother. Hypertension: Brother. Leukemia: Brother. Primary malignant neoplasm of skin: Father. Immunizations Vaccine Date Status Comments influenza virus vaccine, inactivated - Not Given Patient Refuses SARS-CoV-2 (COVID-19) mRNA-1273 vaccine 08/16/2020 Recorded 2022-03-03: TPVALL SARS-CoV-2 (COVID-19) mRNA-1273 vaccine 07/19/2020 Recorded 2022-03-03: TPVALL [facility] Comment on above: Result Comment: Elec tronically Signed By: BENITA GUTIERREZ, Halley Smith\Date and Time Signed: 04/14/22 16:29 EST Reminderson 04-14-2022 Reminders - From: Rain Alcantar LPN To: N - Clinical; Sent: 04/14/2022 15:37:22 EST Show up: 03/07/2032 07:00:00 EST Subject: colonoscopy recall Due Date/Time: 04/07/2032 07:00:00 EST Reminder/Recall Patient is due for screening colonoscopy 04/07/2032. Normal [facility] Outside Colonoscopyon 2022 Outside Colonoscopy [id number]#[id number]:127 [facility] Pathology Noteon 04-09-2022 Pathology Note [id number]#[id number]:127 [facility] PREG HCG QUALon 04-07-2022 , QUAL Negative Normal NEGATIVE [facility] Comment on above: Performed By: #### C BC #### [facility] [address] [place] [address] Dr. Marianela Villa Lab Reportson 04-01-2022 Lab Reports [id number]#1.00CD:127 Normal [facility] Covid-19 PCR (CVDTBH)on 03-05 SARS-CoV-2 (COVID-19) RNA TERA+probe Ql (Unsp spec) Not detected Normal NOT DETECTED [facility] Comment on above: Result Comment: This test is not yet approved or cleared by the [place] FDA. When there are no FDA-approved or cleared tests available, and other criteria are met, FDA can make tests available under an emergency access mechanism called an Emergency Use Authorization (EUA). The EUA for this test is supported by the X Ray Operator of Health and Human Service's (HHS's) declaration that circumstances exist to justify the emergency use of in vitro diagnostics for the detection and/or diagnosis of the virus that causes COVID-19. This EUA will remain in effect (meaning this test can be used) for the duration of the COVID-19 declaration justifying emergency of IVDs, unless it is terminated or revoked by FDA (after which the test may no longer be used). When diagnostic testing is negative, the possibility of a false negative should be considered in the context of a patient's recent exposures and the presence of clinical signs and symptoms consistent with SARS-CoV-2. Performed By: #### P REG #### [facility] [address] [place] [address] Dr. Marianela Villa PAP ACOG PANEL 2: 30 to 65on 03-21-2022 . . Normal [facility] Comment on above: Result Comment: Perf ormed at: WB Performed By: #### [id number] #### [facility] [address] [place], [place] [id number] Dr. Marianela Villa Age Gdln ACOG Testing 30-65 Normal [facility] Comment on above: Performed By: #### [id number] #### [facility] [address] [place] [address] Dr. Marianela Villa DIAGNOSIS: Comment Normal [facility] Comment on above: Result Comment: NEGA TIVE FOR INTRAEPITHELIAL LESION OR MALIGNANCY. Performed at: WB Performed By: #### [id number] #### [facility] [address] [address] [address] Marianela Villa HPV Aptima Negative Normal Negative [facility] Comment on above: Result Comment: This nucleic acid amplification test detects fourteen high-risk HPV types (16,18,31,33,35,39,45,51,52,56,58,59,66,68) without differentiation. Performed at: =G Performed By: #### [id number] #### [facility] [address] [place] [address] Dr. Marianela Villa HPV Genotype Reflex Comment Normal [facility] Comment on above: Result Comment: Crit eria not met, HPV Genotype not performed. Performed at: WB Performed By: #### [id number] #### [facility] [address] [place] [address] Dr. Marianela Villa Methodology: Comment Normal [facility] Comment on above: Result Comment: This liquid based ThinPrep(R) pap test was screened with the use of an image guided system. Performed at: WB Performed By: #### [id number] #### [facility] [address] [place] [address] Dr. Marianela Villa Note: Comment Normal [facility] Comment on above: Result Comment: The Pap smear is a screening test designed to aid in the detection of premalignant and malignant conditions of the uterine cervix. It is not a diagnostic procedure and should not be used as the sole means of detecting cervical cancer. Both false-positive and false-negative reports do occur. . Performed at: WB Performed By: #### [id number] #### [facility] [address] [place] [address] Dr. Marianela Villa Performed by: Comment Normal [facility] Comment on above: Result Comment: Nancy Leslie, Laborer Cutting Tool (ASCP) Performed at: WB Performed By: #### [id number] #### [facility] [address] [place] [address] Dr. Marianela Villa Specimen adequacy: Comment Normal [facility] Comment on above: Result Comment: Sati sfactory for evaluation. No endocervical component is identified. Performed at: WB Performed By: #### [id number] #### [facility] [address] [place] [address] Dr. Marianela Villa Pre-Certification Formon Pre-Certification Form [id number]:127 Normal [facility] Facesheeton 03-09-2022 Facesheet [id number]#1.00CD:127 Normal [facility] Patient Correspondenceon Patient Correspondence [id number]#[id number]:127 Normal [facility] Consent for Procedure/Surger yon 03-08-2022 Consent for Procedure/Surgery [id number]#[id number]:127 Normal [facility] CBC AUTO DIFFon 03-01-2022 BASO # 0.0 103/ul Normal 0.0-0.1 [facility] Comment on above: Performed By: #### C BC #### [facility] [address] [place] [address] Dr. Marianela Villa Basophils/100 WBC (Bld) 0.5 % Normal 0.2-2.0 [facility] Comment on above: Performed By: #### C BC #### [facility] [address] [place] [address] Dr. Marianela Villa EO # 0.1 103/ul Normal 0.0-0.7 [facility] Comment on above: Performed By: #### C BC #### [facility] [address] [place] [address] Dr. Marianela Villa Eosinophils/100 WBC (Bld) 1.3 % Normal 0.9-7.0 [facility] Comment on above: Performed By: #### C BC #### [facility] [address] [place] [address] Dr. Marianela Villa Erythrocyte distribution width (RBC) [Ratio] 25.9 % Critically high 11.0-15.0 [facility] Comment on above: Performed By: #### C BC #### [facility] [address] [place] [address] Dr. Marianela Villa Hematocrit (Bld) [Volume fraction] 36.4 % Normal 36.0-48.0 [facility] Comment on above: Performed By: #### C BC #### [facility] [address] [place] [address] Dr. Marianela Villa Hemoglobin (Bld) [Mass/Vol] 11.5 g/dL Critically low 12.0-16.0 [facility] Comment on above: Performed By: #### C BC #### [facility] [address] [place] [address] Dr. Marianela Villa IG # 0.01 10e3/ul Normal 0.00-0.03 [facility] Comment on above: Performed By: #### C BC #### [facility] [address] [place] [address] Dr. Marianlea Villa IG % 0.2 % Normal 0.0-0.5 [facility] Comment on above: Performed By: #### C BC #### [facility] [address] [place] [address] Dr. Marianela Villa LYMPH # 1.7 103/ul Normal 1.2-3.8 [facility] Comment on above: Performed By: #### C BC #### [facility] [address] [place] [address] Dr. Marianela Villa Lymphocytes/100 WBC (Bld) 31.4 % Normal 20.5-60.0 [facility] Comment on above: Performed By: #### C BC #### [facility] [address] [place] [address] Dr. Marianela Villa MANUAL DIFF REQ NO Normal [facility] Comment on above: Performed By: #### C BC #### [facility] [address] [place] [address] Dr. Marianela Villa MCH (RBC) [Entitic mass] 26.6 pg Critically low 26.7-34.0 [facility] Comment on above: Performed By: #### C BC #### [facility] [address] [place] [address] Dr. Marianela Villa MCHC (RBC) [Mass/Vol] 31.6 g/dL Normal 29.9-35.2 [facility] Comment on above: Performed By: #### C BC #### [facility] [address] [place] [address] Dr. Marianela Villa MCV (RBC) [Entitic vol] 84.1 fL Normal 81.0-99.0 [facility] Comment on above: Performed By: #### C BC #### [facility] [address] [place] [address] Dr. Marianela Villa MONO # 0.4 103/ul Normal 0.3-0.8 [facility] Comment on above: Performed By: #### C BC #### [facility] [address] [place] [address] Dr. Marianela Villa Monocytes/100 WBC (Bld) 7.6 % Normal 1.7-12.0 [facility] Comment on above: Performed By: #### C BC #### [facility] [address] [place] [address] Dr. Marianela Villa NEUT # 3.3 103/ul Normal 1.4-6.5 [facility] Comment on above: Performed By: #### C BC #### [facility] [address] [place] [address] Dr. Marianela Villa Neutrophils/100 WBC (Bld) 59.0 % Normal 43.0-75.0 [facility] Comment on above: Performed By: #### C BC #### [facility] [address] [place] [address] Dr. Marianela Villa Platelet mean volume (Bld) [Entitic vol] 11.2 fL Normal 9.5-13.5 [facility] Comment on above: Performed By: #### C BC #### [facility] [address] [place] [address] Dr. Marianela Villa PLT 297 103/ul Normal 150-450 [facility] Comment on above: Performed By: #### C BC #### [facility] [address] [place] [address] Dr. Marianela Villa RBC 4.33 106/ul Normal 4.20-5.40 [facility] Comment on above: Performed By: #### C BC #### [facility] [address] [place] [address] Dr. Marianela Villa WBC 5.5 103/ul Normal 4.0-11.0 [facility] Comment on above: Performed By: #### C BC #### [facility] [address] [place] [address] Dr. Marianela Villa CBC AUTO DIFFon 02-18-2022 BASO # 0.0 103/ul Normal 0.0-0.1 [facility] Comment on above: Performed By: #### P REG #### [facility] [address] [place] [address] Dr. Marianela Villa Basophils/100 WBC (Bld) 0.3 % Normal 0.2-2.0 [facility] Comment on above: Performed By: #### P REG #### [facility] [address] [place] [address] Dr. Marianela Villa EO # 0.1 103/ul Normal 0.0-0.7 [facility] Comment on above: Performed By: #### P REG #### [facility] [address] [place] [address] Dr. Marianela Villa Eosinophils/100 WBC (Bld) 1.0 % Normal 0.9-7.0 [facility] Comment on above: Performed By: #### P REG #### [facility] [address] [place] [address] Dr. Marianela Villa Erythrocyte distribution width (RBC) [Ratio] 25.0 % Critically high 11.0-15.0 [facility] Comment on above: Performed By: #### P REG #### [facility] [address] [address] [address] Marianela Villa Hematocrit (Bld) [Volume fraction] 34.9 % Critically low 36.0-48.0 [facility] Comment on above: Performed By: #### P REG #### [facility] [address] [place] [address] Dr. Marianela Villa Hemoglobin (Bld) [Mass/Vol] 10.6 g/dL Critically low 12.0-16.0 [facility] Comment on above: Performed By: #### P REG #### [facility] [address] [place] [address] Dr. Marianela Villa IG # 0.02 10e3/ul Normal 0.00-0.03 [facility] Comment on above: Performed By: #### P REG #### [facility] [address] [place] [address] Dr. Marianela Villa IG % 0.3 % Normal 0.0-0.5 [facility] Comment on above: Performed By: #### P REG #### [facility] [address] [place] [address] Dr. Marianela Villa LYMPH # 1.8 103/ul Normal 1.2-3.8 [facility] Comment on above: Performed By: #### P REG #### [facility] [address] [place] [address] Dr. Marianela Villa Lymphocytes/100 WBC (Bld) 26.0 % Normal 20.5-60.0 [facility] Comment on above: Performed By: #### P REG #### [facility] [address] [place] [address] Dr. Marianela Villa MANUAL DIFF REQ NO Normal [facility] Comment on above: Performed By: #### P REG #### [facility] [address] [place] [address] Dr. Marianela Villa MCH (RBC) [Entitic mass] 24.9 pg Critically low 26.7-34.0 [facility] Comment on above: Performed By: #### P REG #### [facility] [address] [place] [address] Dr. Marianela Villa MCHC (RBC) [Mass/Vol] 30.4 g/dL Normal 29.9-35.2 [facility] Comment on above: Performed By: #### P REG #### [facility] [address] [place] [address] Dr. Marianela Villa MCV (RBC) [Entitic vol] 81.9 fL Normal 81.0-99.0 [facility] Comment on above: Performed By: #### P REG #### [facility] [address] [place] [address] Dr. Marianela Villa MONO # 0.4 103/ul Normal 0.3-0.8 [facility] Comment on above: Performed By: #### P REG #### [facility] [address] [place] [address] Dr. Marianela Villa Monocytes/100 WBC (Bld) 5.5 % Normal 1.7-12.0 [facility] Comment on above: Performed By: #### P REG #### [facility] [address] [place] [address] Dr. Marianela Villa NEUT # 4.5 103/ul Normal 1.4-6.5 [facility] Comment on above: Performed By: #### P REG #### [facility] [address] [place] [address] Dr. Marianela Villa Neutrophils/100 WBC (Bld) 66.9 % Normal 43.0-75.0 [facility] Comment on above: Performed By: #### P REG #### [facility] [address] [place] [address] Dr. Marianela Villa Platelet mean volume (Bld) [Entitic vol] 11.1 fL Normal 9.5-13.5 [facility] Comment on above: Performed By: #### P REG #### [facility] [address] [place] [address] Dr. Marianela Villa PLT 198 103/ul Normal 150-450 [facility] Comment on above: Performed By: #### P REG #### [facility] [address] [place] [address] Dr. Marianela Villa RBC 4.26 106/ul Normal 4.20-5.40 [facility] Comment on above: Performed By: #### P REG #### [facility] [address] [place] [address] Dr. Marianela Villa WBC 6.8 103/ul Normal 4.0-11.0 [facility] Comment on above: Performed By: #### P REG #### [facility] [address] [place] [address] Dr. Marianela Villa IRONon 02-18-2022 Iron [Mass/Vol] 57.0 ug/dL Normal 50.0-170.0 [facility] Comment on above: Performed By: #### C DANY, BUN #### [facility] [address] [place] [address] Dr. Marianela Villa OCC BLD IMMUNO SCREENon OCCULT BLOOD Negative Normal NEGATIVE [facility] Comment on above: Performed By: #### O BSCRN #### [facility] [address] [place] [address] Dr. Marianela Villa Physician Referralon 022 Physician Referral [id number]:127 Normal [facility] CBC AUTO DIFFon 02-02-2022 BASO # 0.0 103/ul Normal 0.0-0.1 [facility] Comment on above: Performed By: #### C BC #### [facility] [address] [place] [address] Dr. Marianela Villa Basophils/100 WBC (Bld) 0.4 % Normal 0.2-2.0 [facility] Comment on above: Performed By: #### C BC #### [facility] [address] [place] [address] Dr. Marianela Villa EO # 0.1 103/ul Normal 0.0-0.7 [facility] Comment on above: Performed By: #### C BC #### [facility] [address] [place] [address] Dr. Marianela Villa Eosinophils/100 WBC (Bld) 1.3 % Normal 0.9-7.0 [facility] Comment on above: Performed By: #### C BC #### [facility] [address] [place] [address] Dr. Marianela Villa Erythrocyte distribution width (RBC) [Ratio] 17.7 % Critically high 11.0-15.0 [facility] Comment on above: Performed By: #### C BC #### [facility] [address] [place] [address] Dr. Marianela Villa Hematocrit (Bld) [Volume fraction] 30.3 % Critically low 36.0-48.0 [facility] Comment on above: Performed By: #### C BC #### [facility] [address] [place] [address] Dr. Marianela Villa Hemoglobin (Bld) [Mass/Vol] 9.1 g/dL Critically low 12.0-16.0 [facility] Comment on above: Performed By: #### C BC #### [facility] [address] [place] [address] Dr. Marianela Villa IG # 0.01 10e3/ul Normal 0.00-0.03 [facility] Comment on above: Performed By: #### C BC #### [facility] [address] [place] [address] Dr. Marianela Villa IG % 0.1 % Normal 0.0-0.5 [facility] Comment on above: Performed By: #### C BC #### [facility] [address] [place] [address] Dr. Marianela Villa LYMPH # 1.9 103/ul Normal 1.2-3.8 [facility] Comment on above: Performed By: #### C BC #### [facility] [address] [place] [address] Dr. Marianela Villa Lymphocytes/100 WBC (Bld) 28.6 % Normal 20.5-60.0 [facility] Comment on above: Performed By: #### C BC #### [facility] [address] [place] [address] Dr. Marianela Villa MANUAL DIFF REQ NO Normal [facility] Comment on above: Performed By: #### C BC #### [facility] [address] [address] [address] Marianela Villa MCH (RBC) [Entitic mass] 23.3 pg Critically low 26.7-34.0 [facility] Comment on above: Performed By: #### C BC #### [facility] [address] [address] [address] Marianela Villa MCHC (RBC) [Mass/Vol] 30.0 g/dL Normal 29.9-35.2 [facility] Comment on above: Performed By: #### C BC #### [facility] [address] [place] [address] Dr. Marianela Villa MCV (RBC) [Entitic vol] 77.5 fL Critically low 81.0-99.0 [facility] Comment on above: Performed By: #### C BC #### [facility] [address] [place] [address] Dr. Marianela Villa MONO # 0.5 103/ul Normal 0.3-0.8 [facility] Comment on above: Performed By: #### C BC #### [facility] [address] [place] [address] Dr. Marianela Villa Monocytes/100 WBC (Bld) 6.7 % Normal 1.7-12.0 [facility] Comment on above: Performed By: #### C BC #### [facility] [address] [place] [address] Dr. Marianela Villa NEUT # 4.2 103/ul Normal 1.4-6.5 [facility] Comment on above: Performed By: #### C BC #### [facility] [address] [place] [address] Dr. Marianela Villa Neutrophils/100 WBC (Bld) 62.9 % Normal 43.0-75.0 [facility] Comment on above: Performed By: #### C BC #### [facility] [address] [place] [address] Dr. Marianela Villa Platelet mean volume (Bld) [Entitic vol] 11.0 fL Normal 9.5-13.5 [facility] Comment on above: Performed By: #### C BC #### [facility] [address] [place] [address] Dr. Marianela Villa PLT 284 103/ul Normal 150-450 [facility] Comment on above: Performed By: #### C BC #### [facility] [address] [place] [address] Dr. Marianela Villa RBC 3.91 106/ul Critically low 4.20-5.40 [facility] Comment on above: Performed By: #### C BC #### [facility] [address] [place] [address] Dr. Marianela Villa WBC 6.7 103/ul Normal 4.0-11.0 [facility] Comment on above: Performed By: #### C BC #### [facility] [address] [place] [address] Dr. Marianela Villa CRPon 02-02-2022 CRP [Mass/Vol] mg/L Normal <=1.0 [facility] Comment on above: Performed By: #### C DANY, BUN #### [facility] [address] [place] [address] Dr. Marianela Villa FREE T3on 02-02-2022 FREE T3 2.06 pg/mlL Critically low 2.18-3.98 [facility] Comment on above: Performed By: #### C DANY, BUN #### [facility] [address] [place] [address] Dr. Marianela Villa FREE T4on 02-02-2022 Free T4 [Mass/Vol] 0.89 ng/dL Normal 0.76-1.46 [facility] Comment on above: Performed By: #### P REG #### [facility] [address] [place] [address] Dr. Marianela Villa GLYCOHEMOGLOBIN A1Con 2021 ADA RECOMMENDATION SEE BELOW Normal [facility] Comment on above: Result Comment: ADA RECOMMENDED LIMIT 4.0 - 6.0 ADA THERAPEUTIC TARGET < 7.0 ACTION SUGGESTED > 7.0 Performed By: #### C DANY, BUN #### [facility] [address] [address] [address] Marianela Villa Glucose [Mass/Vol] 131 mg/dL Normal [facility] Comment on above: Performed By: #### C DANY, BUN #### [facility] [address] [place] [address] Dr. Marianela Villa HbA1c (Bld) [Mass fraction] 6.2 % Normal 4.5-6.2 [facility] Comment on above: Performed By: #### C DANY, BUN #### [facility] [address] [place] [address] Dr. Marianela Villa IRONon 02-02-2022 Iron [Mass/Vol] 15.0 ug/dL Critically low 50.0-170.0 [facility] Comment on above: Performed By: #### P REG #### [facility] [address] [place] [address] Dr. Marianela Villa LIPID PROFILEon 02-02-2022 CHOL-HDL RATIO NORM SEE BELOW Normal [facility] Comment on above: Result Comment: 3.3 - 4.4 LOW RISK 4.4 - 7.1 AVERAGE RISK 7.1 - 11.0 MODERATE RISK >11.0 HIGH RISK Performed By: #### C DANY BUN #### [facility] [address] [place] [address] Dr. Marianela Villa Cholesterol [Mass/Vol] 187 mg/dL Normal <=200 [facility] Comment on above: Performed By: #### C DANY BUN #### [facility] [address] [place] [address] Dr. Marianela Villa Cholesterol in HDL [Mass/Vol] 56 mg/dL Normal 40-60 [facility] Comment on above: Performed By: #### C DANY BUN #### [facility] [address] [place] [address] Dr. Marianela Villa Cholesterol in LDL [Mass/Vol] 114.6 mg/dL Normal [facility] Comment on above: Performed By: #### C DANY BUN #### [facility] [address] [place] [address] Dr. Marianela Villa Cholesterol.total/ Cholesterol in HDL [Mass ratio] 3.3 {ratio} Normal [facility] Comment on above: Performed By: #### C DANY, BUN #### [facility] [address] [address] [address] Marianela Villa HDL NORMAL > or = 60 mg/dl - LO W CARDIOVASCULAR RISK <40 mg/dl - HIGH CARDIOVASCULAR RISK Normal [facility] Comment on above: Performed By: #### C DANY, BUN #### [facility] [address] [address] [address] Marianela Villa LDL CALC NORMAL SEE BELOW Normal [facility] Comment on above: Result Comment: <100 mg/dl OPTIMAL 100 - 129 mg/dl NEAR OR ABOVE OPTIMAL 130 - 159 mg/dl BORDERLINE HIGH 160 - 189 mg/dl HIGH >190 mg/dl VERY HIGH Performed By: #### C DANY, BUN #### [facility] [address] [place] [address] Dr. Marianela Villa Triglyceride [Mass/Vol] 82 mg/dL Normal <=150 [facility] Comment on above: Performed By: #### C DANY, BUN #### [facility] [address] [address] [address] Marianela Villa VLDL CALC 16.4 mg/dL Normal [facility] Comment on above: Performed By: #### C DANY, BUN #### [facility] [address] [address] [address] Marianela Villa MAGNESIUMon 02-02-2022 Magnesium [Mass/Vol] 2.0 mg/dL Normal 1.8-2.4 [facility] Comment on above: Performed By: #### C DANY BUN #### [facility] [address] [address] [address] Marianela Villa PREG HCG QUALon 02-02-2022 , QUAL Negative Normal NEGATIVE [facility] Comment on above: Performed By: #### P REG #### [facility] [address] [place] [address] Dr. Marianela Villa PROF 14(COMP METB)on 022 Albumin [Mass/Vol] 4.0 g/dL Normal 3.4-5.0 [facility] Comment on above: Performed By: #### C DANY, BUN #### [facility] [address] [place] [address] Dr. Marianela Villa Albumin/Globulin [Mass ratio] 1.0 {ratio} Normal [facility] Comment on above: Performed By: #### C DANY, BUN #### [facility] [address] [address] [address] Marianela Villa ALP [Catalytic activity/Vol] 173 U/L Critically high 46-116 [facility] Comment on above: Performed By: #### C DANY, BUN #### [facility] [address] [place] [address] Dr. Marianela Villa ALT [Catalytic activity/Vol] 45 U/L Normal 14-59 [facility] Comment on above: Performed By: #### C DANY, BUN #### [facility] [address] [place] [address] Dr. Marianela Villa Anion gap [Moles/Vol] 12.9 mmol/L Normal [facility] Comment on above: Performed By: #### C DANY, BUN #### [facility] [address] [place] [address] Dr. Marianela Villa AST [Catalytic activity/Vol] 35 U/L Normal 15-37 [facility] Comment on above: Performed By: #### C DANY, BUN #### [facility] [address] [place] [address] Dr. Marianela Villa Bilirubin [Mass/Vol] 0.3 mg/dL Normal 0.2-1.0 [facility] Comment on above: Performed By: #### C DANY, BUN #### [facility] [address] [place] [address] Dr. Marianela Villa Calcium [Mass/Vol] 9.1 mg/dL Normal 8.5-10.1 [facility] Comment on above: Performed By: #### C DANY, BUN #### [facility] [address] [place] [address] Dr. Marianela Villa Chloride [Moles/Vol] 103 mmol/L Normal 98-107 [facility] Comment on above: Performed By: #### C DANY, BUN #### [facility] [address] [place] [address] Dr. Marianela Villa CO2 [Moles/Vol] 27.0 mmol/L Normal 21.0-32.0 [facility] Comment on above: Performed By: #### C DANY, BUN #### [facility] [address] [address] [address] Marianela Villa Creatinine [Mass/Vol] 0.70 mg/dL Normal 0.55-1.02 [facility] Comment on above: Performed By: #### C DANY, BUN #### [facility] [address] [place] [address] Dr. Marianela Villa EGFR-AF [place] >60 Normal >=60 [facility] Comment on above: Performed By: #### C DANY, BUN #### [facility] [address] [place] [address] Dr. Marianela Villa EGFR-NON AF [place] >60 Normal >=60 [facility] Comment on above: Performed By: #### C DANY, BUN #### [facility] [address] [place] [address] Dr. Marianela Villa Globulin (S) [Mass/Vol] 3.9 g/dL Normal [facility] Comment on above: Performed By: #### C DAYN, BUN #### [facility] [address] [place] [address] Dr. Marianela Villa Glucose [Mass/Vol] 88 mg/dL Normal 74-106 [facility] Comment on above: Performed By: #### C DANY, BUN #### [facility] [address] [place] [address] Dr. Marianela Villa Potassium [Moles/Vol] 3.9 mmol/L Normal 3.5-5.1 [facility] Comment on above: Performed By: #### C DANY, BUN #### [facility] [address] [place] [address] Dr. Marianela Villa Protein [Mass/Vol] 7.9 g/dL Normal 6.4-8.2 [facility] Comment on above: Performed By: #### C DANY, BUN #### [facility] [address] [place] [address] Dr. Marianela Villa Sodium [Moles/Vol] 139 mmol/L Normal 136-145 [facility] Comment on above: Performed By: #### C ADNY, BUN #### [facility] [address] [place] [address] Dr. Marianela Villa Urea nitrogen [Mass/Vol] 6.0 mg/dL Critically low 7.0-18.0 [facility] Comment on above: Performed By: #### C DANY, BUN #### [facility] [address] [place] [address] Dr. Marianela Villa Urea nitrogen/Creatinin e [Mass ratio] 8.6 mg/mg Normal [facility] Comment on above: Performed By: #### C DANY, BUN #### [facility] [address] [place] [address] Dr. Marianela Villa [facility] mm/hr Critically high <=20 [facility] Comment on above: Performed By: #### C BC #### [facility] [address] [place] [address] Dr. Marianela Villa TSHon 02-02-2022 TSH 1.378 uIU/mL Normal 0.358-3.740 [facility] Comment on above: Performed By: #### C DANY, BUN #### [facility] [address] [place] [address] Dr. Marianela Villa UA RANDOM W/MICROSCOPICon BACTERIA NONE SEEN Normal NONE SEEN [facility] Comment on above: Performed By: #### P REG #### [facility] [address] [place] [address] Dr. Marianela Villa Bilirubin Ql (U) Negative Normal NEGATIVE [facility] Comment on above: Performed By: #### P REG #### [facility] [address] [place] [address] Dr. Marianela Villa CAST NONE SEEN Normal NONE SEEN [facility] Comment on above: Performed By: #### P REG #### [facility] [address] [place] [address] Dr. Marianela Villa Clarity (U) CLEAR Normal CLEAR [facility] Comment on above: Performed By: #### P REG #### [facility] [address] [place] [address] Dr. Marianela Villa Color (U) LT. YELLOW Normal YELLOW [facility] Comment on above: Performed By: #### P REG #### [facility] [address] [place] [address] Dr. Marianela Villa Crystals LM Nom (Urine sed) NONE SEEN Normal NONE SEEN [facility] Comment on above: Performed By: #### P REG #### [facility] [address] [place] [address] Dr. Marianela Villa Epithelial cells LM Ql (Urine sed) FEW Abnormal NONE SEEN /RARE [facility] Comment on above: Performed By: #### P REG #### [facility] [address] [place] [address] Dr. Marianela Villa Glucose Ql (U) Negative Normal NEGATIVE [facility] Comment on above: Performed By: #### P REG #### [facility] [address] [place] [address] Dr. Marianela Villa Hemoglobin Ql (U) Negative Normal NEGATIVE [facility] Comment on above: Performed By: #### P REG #### [facility] [address] [place] [address] Dr. Marianela Villa Ketones Ql (U) Negative Normal NEGATIVE [facility] Comment on above: Performed By: #### P REG #### [facility] [address] [place] [address] Dr. Marianela Villa LEUKOCYTES Negative Normal NEGATIVE [facility] Comment on above: Performed By: #### P REG #### [facility] [address] [place] [address] Dr. Marianela Villa MUCOUS NONE SEEN Normal NONE SEEN [facility] Comment on above: Performed By: #### P REG #### [facility] [address] [place] [address] Dr. Marianela Villa Nitrite Ql (U) Negative Normal NEGATIVE [facility] Comment on above: Performed By: #### P REG #### [facility] [address] [place] [address] Dr. Marianela Villa pH (U) 6.5 [pH] Normal 5-9 [facility] Comment on above: Performed By: #### P REG #### [facility] [address] [place] [address] Dr. Marianela Villa RBC NONE SEEN Abnormal 0-2 [facility] Comment on above: Performed By: #### P REG #### [facility] [address] [place] [address] Dr. Marianela Villa SPEC GRAVITY <=1.005 Abnormal 1.005-<=1.0 25 [facility] Comment on above: Performed By: #### P REG #### [facility] [address] [place] [address] Dr. Marianela Villa UA PROTEIN Negative Normal NEGATIVE/ TRACE [facility] Comment on above: Performed By: #### P REG #### [facility] [address] [place] [address] Dr. Marianela Villa Urobilinogen Qn (U) 0.2 {Trish'U}/dL Normal 0.2 - 1.0 [facility] Comment on above: Performed By: #### P REG #### [facility] [address] [place] [address] Dr. Marianela Villa WBC NONE SEEN Normal NONE SEEN [facility] Comment on above: Performed By: #### P REG #### [facility] [address] [place] [address] Dr. Marianela Villa VITAMIN B12on 02-02-2022 Cobalamin (Vitamin B12) [Mass/Vol] 630.0 pg/mL Normal 193.0-986.0 [facility] Comment on above: Performed By: #### P REG #### [facility] [address] [place] [address] Dr. Marianela Villa VITAMIN D 25 OHon 02-02-2022 VIT D 25-OH 42.7 ng/mL Normal [facility] Comment on above: Performed By: #### P REG #### [facility] [address] [place], [place] [address] Dr. Marianela Villa VIT D RANGES SEE BELOW Normal [facility] Comment on above: Result Comment: <20 ng/mL Vit D deficient 20 - <30 ng/mL Vit D insufficient 30 - 100 ng/mL Vit D sufficient >100 ng/mL Potential Toxicity Performed By: #### P REG #### [facility] [address] [place], [place] [address] Dr. Marianela Villa [facility] Reporton 01-02-2018 Report Normal [facility] Comment on above: Performed By: #### D NASTUDY #### Performed at [facility], [address] [place] [id number] Vital Signs Date Time Vital Sign Value Performing Clinician Faci lity 03-05-2022 13:19-0500 Blood Pressure Location [employer] [facility] [place] 03-05-2022 13:19-0500 Diastolic blood pressure 76 mm[Hg] [facility] [place] 03-05-2022 13:19-0500 Heart rate 70 /min [facility] [place] 03-05-2022 13:19-0500 Respiratory rate 16 /min [facility] [place] 03-05-2022 13:19-0500 Systolic blood pressure 120 mm[Hg] [facility] [place] Encounters Encounter Date Encounter Type Care Provider Facility Start: 08-31-2023 End: 08-31-2023 ambulatory LINDA REDMOND Not Available Start: 07-19-2022 Encounter for preprocedural laboratory examination DR DYLAN RAJAN . [facility] Start: 07-16-2022 End: 07-17-2022 ambulatory YANG RDEMOND Facility: Start: 07-13-2022 End: 07-14-2022 ambulatory YANG REDMOND Facility:[facility] Start: 07-13-2022 End: 07-14-2022 Encounter for preprocedural laboratory examination YANG LINDA REDMOND Facility:[facility] Start: 07-09-2022 Encounter for preprocedural cardiovascular examination DR DYLAN RAJAN . [facility] Start: 07-09-2022 Encounter for preprocedural laboratory examination DR DYLAN RAJAN . [facility] Start: 07-01-2022 End: 07-02-[address] DYLAN RAJAN . Facility:[facility] Start: 07-01-2022 End: 07-02-2022 Encounter for preprocedural cardiovascular examination DR DYLAN RAJAN . Facility:[facility] Start: 05-05-2022 End: 05-06-2022 ambulatory YANG REDMOND Facility:[facility] Start: 04-26-2022 End: 04-26-2022 ambulatory YANG LINDA REDMOND Facility:[facility] Start: 04-16-2022 End: 04-17-2022 ambulatory YANG FRANCEREI Facility:[facility] Start: 04-14-2022 End: 04-15-2022 [facility]ulatory [facility] Start: 04-14-2022 End: 04-14-2022 Patient encounter procedure Halley BARBOSA [facility] Start: 04-07-2022 End: 04-08-2022 ambulatory Halley BARBOSA Facility:CD:[id number] Start: 03-31-2022 End: 04-01-[address] HALLEY BARBOSA . Facility:[facility] Start: 03-11-2022 End: 03-11-2022 ambulatory YANG LINDACrispin LOVEAlexREI Facility:[facility] Start: 03-05-2022 End: 03-06-2022 ambulatory [facility] Start: 03-05-2022 End: 03-05-2022 Patient encounter procedure Halley BARBOSA [facility] Start: 03-01-2022 End: 03-02-2022 ambulatory YANG REDMOND Facility:[facility] Start: 02-18-2022 End: 02-19-2022 ambulatory YANG REDMOND Facility:[facility] Start: 02-04-2022 End: 02-04-2022 ambulatory YANG REDMOND Facility:[facility] Start: 02-03-2022 ambulatory Halley BENITA Facility:[facility] Start: 02-02-2022 End: 02-03-2022 ambulatory YANG REDMOND Facility:[facility] Start: 01-02-2018 Patient encounter procedure NO PCP [facility] Procedures Date Procedure Procedure Detail Performing Clinician Start: 04-07-2022 Colonoscopy Halley ARCHULETA Start: 04-07-2022 Esophagogastroduodenoscopy Halley BARBOSA Start: 04-04-2008 section Tara tu BARBOSA Start: 04-04-2007 section Sameertravis BARBOSA Extraction of wisdom tooth M ichjo-ann BARBOSA Immunizations Immunization Date Immunization Notes Care Provider Fa cility 08-16-2020 SARS-CoV-2 (COVID-19 ) mRNA-1273 vaccine Halley BENITA [facility] [place] Comment on above: Result Comment: 2021: TPVALL 07-19-2020 SARS-CoV-2 (COVID-19 ) mRNA-1273 vaccine Halley LONGTu [facility] [place] Comment on above: Result Comment: 2021: TPVALL NEGATED: Highlighted row has not occurred!03-05-2022 influenza virus vaccine, unspecified formulation Halley BARBOSA [facility] [place] Payers Date Payer Category Payer Unknown [id number] 2.16.8 [id number] 1983 Unknown [id number] 2.16.8 [id number] 1983 Unknown [id number] 2.16.8 [id number] 1983 Unknown [id number] 2.16.84 [id number] 1983 Unknown [id number] 2.16.84 [id number] 1983 Unknown [id number] 2.16.84 [id number] 1983 Unknown [id number] 2.16.84 [id number] 1983 Unknown [id number] 2.16.84 0.1.059978.3.579.2.593 1983 Unknown [id number] 2.16.84 0.1.533200.3.579.2.593 1983 Unknown [id number] 2.16.84 0.1.034450.3.579.2.593 1983 Unknown [id number] 2.16.84 [id number] 1983 Unknown [id number] 2.16.84 0.1.994365.3.579.2.593 1983 Unknown [id number] 2.16.84 0.1.061963.3.579.2.593 1983 Unknown [id number] 2.16.84 0.1.788222.3.579.2.593 1983 Unknown [id number] 2.16.84 [id number] 1983 Unknown [id number] 2.16.84 [id number] 1983 Unknown [id number] 2.16.84 [id number] 1961 Private Health Insurance [id number] Social History Date Type Detail Facility Start: 03-05-2022 Tobacco smoking status Never s moked tobacco (finding) [facility] [place] Tobacco smoking status Never [facility] [place] Sex Assigned At Female [facility] Functional Status Date Assessment Result Facility 03-05-2022 Functional Status N/A [facility] [place] Clinical Note 07-16-2022 Note Date & Type Note Facility 07-16-2022 Note OP Note OPERATION DATE: 07/16/2022 ADDENDUM: Please note that a left ovarian cystectomy was performed using the LigaSure apparatus. [facility] Clinical Note 07-16-2022 Note Date & Type Note Facility 07-16-2022 Note OPERATIVE NOTE OPERATION DATE: 07/26/2022 PROCEDURE: Robotic assisted laparoscopic hysterectomy with right salpingectomy, left cystectomy of endometrioma and cystoscopy. PREOPERATIVE DIAGNOSIS: Menorrhagia, dysmenorrhea, pelvic pain, dyspareunia. POSTOPERATIVE DIAGNOSIS: Menorrhagia, dysmenorrhea, pelvic pain, dyspareunia including a left ovarian endometrioma. ANESTHESIA: General. SURGEON: Dylan Rajan D.O. [employer] TEACHER: PJ Quevedo URINE OUTPUT: Yellow and clear. BLOOD LOSS: 150 mL. SPECIMEN: Left ovarian cyst wall, right tube as well as uterus and cervix. PROCEDURE: The patient was taken back to the operating room, where she was prepped and draped in the normal sterile fashion after being placed in the dorsal lithotomy position. Patient's anesthesia was found to be adequate. Surgical timeout was performed using two patient identifiers. SCDs were on and in place. Two grams of Ancef were given prior to the surgery. Sterile Huber catheter was inserted. Standard size VCare was secured to the uterine cervix and the surgeon changed gloves. Attention then was turned to the patient's abdomen, where a supraumbilical incision was then made. Two S retractors were used to identify the patient's fascia. The fascia was then tented up using Melida clamps and the patient's fascia was incised sharply. Patient's abdomen was identified and entered bluntly. The patient had the trocar placed and a pneumoperitoneum was obtained. Approximately 4 liters of CO2 gas was used. The camera was then placed through the trocar. At this time, two robot trocars were placed in the patient's left and right side, two hand widths from the midline, and this was placed under direct visualization. The patient's tube on the right side was tended up and the vessel sealer was then used to come across the mesosalpinx, and this was carried down to the uterine ovarian ligament. The vessel sealer was carried down serially to the broad ligament, to the area of the bladder flap, which was then created anteriorly, and the uterine arteries were skeletonized and sealed using the vessel sealer. The colpotomy was made using the monopolar cautery on cut, and this was carried circumferentially, posteriorly to anteriorly, until the uterus was amputated. The specimen was then removed intact through the vagina, without difficulty. The vagina was then closed using two running V-Loc in a non-lock fashion. The robot was undocked. The abdomen was desufflated. The skin defects were closed using 4-0 Vicryl. Please note, the fascia was closed using 0 Vicryl. Sponge, lap and needle counts were correct x2. Patient was taken to recovery room in stable condition. The patient was awakened by Anesthesia first. Patient tolerated procedure well. [facility] Clinical Note 04-07-2022 Note Date & Type Note Facility 04-07-2022 Note OPERATIVE NOTE OPERATION DATE: 04/07/2022 PREOPERATIVE DIAGNOSIS: Iron deficiency anemia, nausea, upper abdominal pain, loose stools. POSTOPERATIVE DIAGNOSIS: Mild antral gastritis, redundant colon. PROCEDURE: EGD with antral biopsy and colonoscopy to terminal ileum with multiple random biopsies. SURGEON: Halley Barbosa M.D. ANESTHESIA: Monitored anesthesia care. ESTIMATED BLOOD LOSS: Less than 1 mL. INDICATIONS AND CONSENT: Patient is a 36-year-old female with history of intermittent nausea, epigastric abdominal pain, frequent loose stools, weight loss and iron deficiency anemia. Indications, risks, benefits, alternatives of proceeding with EGD and colonoscopy were explained extensively to the patient, including the risks of bleeding, aspiration, esophageal/gastric/duodenal or colonic perforation or anesthetic complications. All of her questions were answered. Informed consent was obtained. PROCEDURE: Patient brought to the operating room, placed in the left lateral decubitus position. Monitored anesthesia care was provided. A bite block was placed in the patient's mouth. Scope was inserted into the oropharynx. Under direct visualization, it was advanced into the esophagus, past the cricopharyngeus, down to the stomach. The stomach was insufflated with air. The pylorus was traversed down to the descending portion of the duodenum. There was no evidence of duodenitis or ulceration. There was no scarring within the pyloric channel. The scope was pulled back into the stomach and retroflexed. There was no significant hiatal hernia. Within the antrum, there was some mild antral gastritis without ulceration or bleeding. Biopsies were obtained with pediatric biopsy forceps with good hemostasis. The GE junction was noted at 40 cm. There was no distal esophagitis or Salas's changes. Remainder of the esophagus was unremarkable. The scope was then withdrawn. The patient was then positioned for colonoscopy. Rectal exam was performed which showed no masses or blood. Scope was inserted into the anal canal. Under direct visualization was advanced. It was advanced to the cecum where cecal markings were clearly identified. The terminal ileum was intubated. It was noted to be normal. Random biopsies were obtained, as well as random biopsies throughout the colon. There was noted to some hyperemia of the mucosa but no inflammatory changes or ulcerations. There was redundancy of the colon. No blood. No significant diverticulosis. The scope was retroflexed in the anal canal. There was no significant hemorrhoidal disease. The scope was then withdrawn. Patient tolerated procedure well, was sent to recovery room in good condition. Follow up colonoscopy will likely be within 10 years for screening, but may change based on the pathology results. CC: Linda Redmond CNP [facility] Clinical Note 03-05-2022 Note Date & Type Note Facility 03-05-2022 Note Chief Complaint consultation for weight loss, nausea, loose stools HPI Staff 36 year old female presents on consultation from Linda Redmond for weight loss, nausea and loose stools. Reports nearly 60 pound weight loss over the past year. Reports early generalized abdominal pain and satiety. Denies vomiting. Denies rectal pain or bleeding. Taking Pantoprazole. Never had EGD or colonoscopy. No known family history of colon cancer. History of Present Illness 36 yo female with anxiety/depression; referred for iron deficiency anemia, nausea, change in bowel habits and diffuse intermittent abd pains; no emesis, no blood in stools or melena; no asa or NSAID use; has had 60 lb wt loss over past year due to poor appetite; no previous endoscopies; pain is described as an ache; when patient does eat, she experiences loose, watery stools right afterward. no fmhx of GI malignancy or IBD. no tobacco use. Review of Systems PHQ Score Initial Depression Screen Score: 0 Physical Exam Vitals & Measurements HR: 70(Peripheral) RR: 16 BP: 120/76 HT: 66 in HT: 167.6 cm WT: 87.1 kg WT: 191.62 lb BMI: 31.01 HEENT: normal conjunctiva, sclera clear, no scleral icterus, EOM intact, PERRLA, oral mucosa moist without lesions. Neck: trachea midline, no mass, symmetric, no thyromegaly or nodules, no adenopathy Respiratory: lungs CTA, respirations non labored. Cardiovascular: regular rate and rhythm, no murmur, no pedal edema or varicosities. Gastrointestinal:obese, soft, non distended, no tenderness, no masses, no palpable hernias, diastasis recti no, no hepatosplenomegaly; normal bs Lymphatic: no cervical adenopathy, Musculoskeletal: normal gait, digits and nails without infection, nodes, cyanosis, clubbing. Skin: no rashes, no lesions, no ulcers, no subcutaneous nodules, induration. Psychiatric/Neuro: oriented to time, place, person, judgement normal, affect appropriate for age, insight intact, no focal deficits. Tests: labs reviewed, review of old records completed, Discussed surgical options, risks, and possible complications with patient. Assessment/Plan 1. Change in bowel habits (R19.4: Change in bowel habit) plan EGD and colonoscopy under anesthesia for further evaluation, informed consent obtained 2. Iron deficiency anemia (D50.9: Iron deficiency anemia, unspecified) see # 1 3. Frequent loose stools (R19.7: Diarrhea, unspecified) see # 1 4. Nausea (R11.0: Nausea) see # 1 5. Loss of appetite for more than 2 weeks (R63.0: Anorexia) see # 1 Follow-up No qualifying data available Problem List/Past Medical History Ongoing Anxiety and depression BMI 31.0-31.9,adult Change in bowel habits Diarrhea Frequent loose stools Iron deficiency anemia Loss of appetite for more than 2 weeks Nausea Obesity Visual impairment Weight loss Historical No qualifying data Procedure/Surgical History section (2008), section (2007), Extraction of wisdom tooth. Medications busPIRone 15 mg Tab, 22.5 mg= 1.5 tab(s), Oral, BID ClonazePAM 0.5 mg Tab, 0.5 mg= 1 tab(s), Oral, TID ferrous sulfate 325 mg oral enteric coated tablet, 325 mg= 1 tab(s), Oral, BID Lexapro 20 mg Tab, 20 mg= 1 tab(s), Oral, Daily loratadine 10 mg Tab, 10 mg= 1 tab(s), Oral, Daily Multi Vitamins oral tablet, 1 tab(s), Oral, Daily Pantoprazole [address] Tab, 40 mg= 1 tab(s), Oral, Daily Allergies Keflex (Syncope) Social History Alcohol - Denies Alcohol Use, 03/05/2022 Substance Abuse - Denies Substance Abuse, 03/05/2022 Tobacco Never (less than 100 in lifetime) Tobacco Use:. Never Smokeless Tobacco Use:., 03/05/2022 Family History Heart failure: Mother. Hypertension: Brother. Leukemia: Brother. Primary malignant neoplasm of skin: Father. Immunizations Vaccine Date Status Comments influenza virus vaccine, inactivated - Not Given Patient Refuses SARS-CoV-2 (COVID-19) mRNA-1273 vaccine 08/16/2020 Recorded 2022-03-03: TPVALL SARS-CoV-2 (COVID-19) mRNA-1273 vaccine 07/19/2020 Recorded 2022-03-03: TPVALL [facility] Comment on above: Result Comment: Elec tronically Signed By: BENITA GUTIERREZ, Halley Edge\.samira\Date and Time Signed: 03/05/22 13:57 EST Evaluation + Plan note Note Date & Type Note Facility Evaluation + Plan note No data available for this section [facility] Discharge instructions Note Date & Type Note Facility Hospital Discharge instructions No data available for this section [facility] [place] Progress note Note Date & Type Note Facility Progress note No data available for this section [facility] [place] Summary Purpose Family History No Family History Records FoundNo Family History Records FoundNo Family History Records FoundNo Family History Records Found Advance Directives No Advanced Directives Records FoundNo Advanced Directives Records FoundNo Advanced Directives Records FoundNo Advanced Directives Records Found Additional Source Comments INFORMATION SOURCE (unrecogn ized section and content) DATE CREATED AUTHOR 05/16/2018 [facility] DATE CREATED AUTHOR AUTHOR'S ORGANIZ ATION [facility] CREATED AUTHOR AUTHOR'S ORGANIZ ATION 08/03/2022 [facility] DATE CREATED AUTHOR AUTHOR'S ORGANIZ ATION 09/01/2023 [facility] EPIC Patient Care team informatio n (unrecognized section and content) Personnel Name: SEAN YANG LINDA Amalia Address: Address: [address] [place] [address] Personnel Name: SEAN LINDA SORIA Address: Address: [address] [place] [address] FOR RECORDS PERTAINING TO PATIENTS WHO ARE OR HAVE BEEN ENROLLED IN A CHEMICAL DEPENDENCY/SUBSTANCEABUSE PROGRAM, SOME INFORMATION MAY BE OMITTED. This clinical summary was aggregated from multiple sources. Caution should be exercised in using it in the provision of clinical care. This summary normalizes information from multiple sources, and as a consequence, information in this document may materially change the coding, format and clinical context of patient data. In addition, data may be omitted in some cases. CLINICAL DECISIONS SHOULD BE BASED ON THE PRIMARY CLINICAL RECORDS. [facility] [employer] [facility]. provides no warranty or guarantee of the accuracy or completeness of information in this document.
[2023-09-21 08:47] LABS: Basophils Percent Auto 0.4 % (0.2-2.0); Eosinophils Absolute Auto 0.1 10^3/uL (0.0-0.7); Eosinophils Percent Auto 1.7 % (0.9-7.0); Hematocrit 41.1 % (36.0-48.0); Hemoglobin 13.6 g/dL (12.0-16.0); Immature Granulocytes Abs Auto 0.03 10^3/uL (0.00-0.03); Immature Granulocytes Pct Auto 0.4 % (0.0-0.5); Lymphocytes Absolute Auto 2.1 10^3/uL (1.2-3.8); Lymphocytes Percent Auto 24.7 % (20.5-60.0); Mean Corpuscular HGB Conc 33.1 g/dL (29.9-35.2); Mean Corpuscular Hemoglobin 31.1 pg (26.7-34.0); Mean Corpuscular Volume 93.8 fL (81.0-99.0); Mean Platelet Volume 10.8 fL (9.5-13.5); Monocytes Absolute Auto 0.5 10^3/uL (0.3-0.8); Monocytes Percent Auto 6.4 % (1.7-12.0); Neutrophils Absolute Auto 5.5 10^3/uL (1.4-6.5); Neutrophils Percent Auto 66.4 % (43.0-75.0); Platelet Count 243 10^3/uL (150-450); Red Blood Count 4.38 10^6/uL (4.20-5.40); Red Cell Distribution Width 13.4 % (11.0-15.0); White Blood Count 8.3 10^3/uL (4.0-11.0)
[2023-09-21 08:48] LABS: Bilirubin Urine NEGATIVE (NEGATIVE); Blood Urine NEGATIVE (NEGATIVE); Clarity Urine CLEAR (CLEAR); Color Urine LT. YELLOW (YELLOW); Glucose Urine UA NEGATIVE (NEGATIVE); Ketones Urine NEGATIVE (NEGATIVE); Leukocyte Esterase Urine NEGATIVE (NEGATIVE); Nitrite Urine NEGATIVE (NEGATIVE); Protein Urine NEGATIVE (NEG/TRACE); Urine Microscopic Indicated NO; Urobilinogen Urine 0.2 EU/dL (0.2-1.0)
[2023-09-21 10:19] LABS: Free T4 0.86 ng/dL (0.76-1.46)
[2023-09-21 11:38] LABS: Alanine Aminotransferase 46 U/L (14-59); Albumin Globulin Ratio 0.8; Albumin Level 3.6 g/dL (3.4-5.0); Alkaline Phosphatase 153 U/L (46-116); Anion Gap 15.1; Aspartate Amino Transferase 28 U/L (15-37); BUN Creatinine Ratio 15.3; Bilirubin Total 0.3 mg/dL (0.2-1.0); Calcium 8.9 mg/dL (8.5-10.1); Chloride 104 mmol/L (98-107); Chol HDL Ratio 4.5; Cholesterol 276 mg/dL (<=200); Estimated GFR (African America >60 (>=60); Estimated GFR (Non-African Ame >60 (>=60); Globulin 4.4 g/dL; Glucose 90 mg/dL (74-106); HDL Cholesterol 62 mg/dL (40-60); Potassium 4.1 mmol/L (3.5-5.1); Sodium 139 mmol/L (136-145); Thyroid Stimulating Hormone 3.383 uIU/mL (0.358-3.740); Triglycerides 155 mg/dL (<=150)
== END 2023-09-21 08:22 | disposition home or self-care (01) ==
LOC: LAB 08:21
PROVIDERS: PCP Nurse Practitioner; Visit Provider Nurse Practitioner
DX: D50.9 Iron deficiency anemia, unspecified (principal); E66.9 Obesity, unspecified
CPT/HCPCS: 36415; 80053; 80061; 81003; 82728; 83540; 84439; 84443; 85025

== ENCOUNTER 2023-10-03 13:49 | Outpatient (OUT) | payer OTHER, SELFPAY ==
[2023-10-03 14:46] LABS: Lactate Dehydrogenase 135 U/L (81-234)
[2023-10-04 04:07] LABS: AFP, Serum, Tumor Marker 2.7 ng/mL (0.0-6.4); Cancer Antigen (CA) 125 76.9 U/mL (0.0-38.1)
[2023-10-04 05:07] LABS: HCG Tumor Marker <1 mIU/mL (.)
== END 2023-10-03 13:50 | disposition home or self-care (01) ==
PROVIDERS: PCP Nurse Practitioner; Visit Provider Obstetrics & Gynecology
DX: R10.2 Pelvic and perineal pain (principal); N83.202 Unspecified ovarian cyst, left side; N83.299 Other ovarian cyst, unspecified side
CPT/HCPCS: 36415; 82105; 82378; 83615; 84702; 86304

== ENCOUNTER 2023-11-11 10:51 | Outpatient (OUT) | payer OTHER, SELFPAY ==
--- OUTSIDE RECORDS SUMMARY | 2023-11-11 11:04 | XMS_ITS | CCD ---
Author Organization [facility] Care Team Providers Care Ingot Header Name Role Phone PCP, NO Primary Care Unavailable MENDEL CORADO Attending Unavailable MENDEL CORADO Referring Unavailable AICLINDA SERVIN Primary Care Physician [phone] Halley BARBOSA Attending Unavailable AICHLINDA MINAYA Referring Unavailabl e Halley BARBOSA Attending Unavailable Halley BARBOSA Attending Unavailable Halley BARBOSA Referring Unavailable AICHHOLZ, CUSTOMER ACCOUNT MANAGER LINDA Primary Care Unavailable AICHHOLZ, CUSTOMER ACCOUNT MANAGER LINDA Admitting Unavailable AICHHOLZ, CUSTOMER ACCOUNT MANAGER LINDA Consulting Unavailable AICHHOLZ, CUSTOMER ACCOUNT MANAGER LINDA Attending Unavailable AICHHOLZ, CUSTOMER ACCOUNT MANAGER LINDA Admitting Unavailable AICHHOLZ, CUSTOMER ACCOUNT MANAGER LINDA Consulting Unavailable AICHHOLZ, CUSTOMER ACCOUNT MANAGER LINDA Attending Unavailable AICHHOLZ, CUSTOMER ACCOUNT MANAGER LINDA Primary Care Unavailable AICHHOLZ, CUSTOMER ACCOUNT MANAGER LINDA Consulting Unavailable AICHHOLZ, CUSTOMER ACCOUNT MANAGER LINDA Attending Unavailable AICHHOLZ, CUSTOMER ACCOUNT MANAGER LINDA Admitting Unavailable AICHHOLZ, CUSTOMER ACCOUNT MANAGER LINDA Primary Care Unavailable DR TODD DORANTES Consulting Unavailable KIANA CHURCH Consulting Unavailable AICHHOLZ, CUSTOMER ACCOUNT MANAGER LINDA Consulting Unavailable AICHHOLZ, CUSTOMER ACCOUNT MANAGER LINDA Attending Unavailable AICHHOLZ, CUSTOMER ACCOUNT MANAGER LINDA Admitting Unavailable AICHHOLZ, CUSTOMER ACCOUNT MANAGER LINDA Primary Care Unavailable DR TODD DORANTES Consulting Unavailable NILL ., DR ROWLEY Attending Unavailable NILL ., DR ROWLEY Admitting Unavailable AICHHOLZ, CUSTOMER ACCOUNT MANAGER LINDA Primary Care Unavailable NILL ., DR ROWLEY Consulting Unavailable MINGO WHITMAN, VLAD Consulting Unavailable ALDO ELIZABETH Consulting Unavailable JED LINK Consulting Unavailable NILL ., DR ROWLEY Admitting Unavailable NILL ., DR ROWLEY Consulting Unavailable AICHHOLZ, CUSTOMER ACCOUNT MANAGER LINDA Primary Care Unavailable NILL ., DR ROWLEY Attending Unavailable AICHHOLZ, CUSTOMER ACCOUNT MANAGER LINDA Primary Care Unavailable RENZO ., DR RICHARDSON Admitting Unavailable RENZO ., DR RICHARDSON Consulting Unavailable RENZO ., DR RICHARDSON Attending Unavailable RENZO ., DR RICHARDSON Consulting Unavailable RENZO ., DR RICHARDSON Attending Unavailable RENZO ., DR RICHARDSON Admitting Unavailable AICHHOLZ, CUSTOMER ACCOUNT MANAGER LINDA Primary Care Unavailable AICHHOLZ, CUSTOMER ACCOUNT MANAGER LINDA Primary Care Unavailable RENZO ., DR RICHARDSON Consulting Unavailable RENZO ., DR RICHARDSON Attending Unavailable RENZO ., DR RICHARDSON Admitting Unavailable ROBERT HOPKINS Consulting Unavailable ABDI GALVAN Consulting Unavailable AICHHOLZ, CUSTOMER ACCOUNT MANAGER LINDA Primary Care Unavailable AICHHOLZ, CUSTOMER ACCOUNT MANAGER LINDA Attending Unavailable AICHHOLZ, CUSTOMER ACCOUNT MANAGER LINDA Admitting Unavailable AICHHOLZ, CUSTOMER ACCOUNT MANAGER LINDA Consulting Unavailable AICHHOLZ, CUSTOMER ACCOUNT MANAGER LINDA Consulting Unavailable AICHHOLZ, CUSTOMER ACCOUNT MANAGER LINDA Attending Unavailable AICHHOLZ, CUSTOMER ACCOUNT MANAGER LINDA Admitting Unavailable AICHHOLZ, CUSTOMER ACCOUNT MANAGER LINDA Primary Care Unavailable AICHHOLZ, CUSTOMER ACCOUNT MANAGER LINDA Admitting Unavailable AICHHOLZ, CUSTOMER ACCOUNT MANAGER LINDA Primary Care Unavailable AICHHOLZ, CUSTOMER ACCOUNT MANAGER LINDA Consulting Unavailable AICHHOLZ, CUSTOMER ACCOUNT MANAGER LINDA Attending Unavailable AICHHOLZ, CUSTOMER ACCOUNT MANAGER LINDA Primary Care Unavailable AICHHOLZ, CUSTOMER ACCOUNT MANAGER LINDA Admitting Unavailable AICHHOLZ, CUSTOMER ACCOUNT MANAGER LINDA Consulting Unavailable AICHHOLZ, CUSTOMER ACCOUNT MANAGER LINDA Attending Unavailable AICHHOLZ, LINDA Attending Unavailable AICHHOLZ, LINDA Attending Unavailable DYLAN RAJAN Attending Unavailable DYLAN RAJAN Attending Unavailable Allergies Allergy Classification Reported Allergen(s) Allergy Type Date of Onset Reaction(s) Facility (3 sources) Cephalexin; Translations: [cephalexin] Drug Allergy Syncope (disorder) General Surgery [place] (2 sources) Cephalexin Drug Allergy [facility] Repository Medications Current Medications Medication Drug [...] Onset: 04-14-2022 Other aftercare (1 source) Other shelter (current) drug therapy; Translations: [OTH SWIMMER CURRENT DRUG THERAPY] Onset: 08-02-2022 Episodic Other [...] Urea nitrogen [Mass/Vol] 9.0 mg/dL Normal 7.0-18.0 [facility] Comment on above: Performed By: #### C DANY BUN #### [facility] [address] [place] [address] Dr. Marianela Villa CBC AUTO DIFFon 07-17-2022 BASO # 0.0 103/ul Normal 0.0-0.1 [facility] Comment on above: Performed By: #### Santos SAENZ BUN #### [facility] [address] [place] [address] Dr. Marianela Villa Basophils/100 WBC (Bld) 0.1 % Critically low 0.2-2.0 [facility] Comment on above: Performed By: #### Santos SAENZ, BUN #### [facility] [address] [place] [address] Dr. Marianela Villa EO # 0.0 103/ul Normal 0.0-0.7 [facility] Comment on above: Performed By: #### C DANY, BUN #### [facility] [address] [place] [address] Dr. Marianela Villa Eosinophils/100 WBC (Bld) 0.0 % Critically low 0.9-7.0 [facility] Comment on above: Performed By: #### C DANY, BUN #### [facility] [address] [place] [address] Dr. Marianela Villa Erythrocyte distribution width (RBC) [Ratio] 14.5 % Normal 11.0-15.0 [facility] Comment on above: Performed By: #### C DANY, BUN #### [facility] [address] [place] [address] Dr. Marianela Villa Hematocrit (Bld) [Volume fraction] 29.9 % Critically low 36.0-48.0 [facility] Comment on above: Performed By: #### C DANY, BUN #### [facility] [address] [place] [address] Dr. Marianela Villa Hemoglobin (Bld) [Mass/Vol] 10.0 g/dL Critically low 12.0-16.0 [facility] Comment on above: Performed By: #### C DANY, BUN #### [facility] [address] [place] [address] Dr. Marianela Villa IG # 0.04 10e3/ul Critically high 0.00-0.03 [facility] Comment on above: Performed By: #### C DANY, BUN #### [facility] [address] [place] [address] Dr. Marianela Villa IG % 0.4 % Normal 0.0-0.5 [facility] Comment on above: Performed By: #### C DANY, BUN #### [facility] [address] [place] [address] Dr. Marianela Villa LYMPH # 1.2 103/ul Normal 1.2-3.8 [facility] Comment on above: Performed By: #### C DANY, BUN #### [facility] [address] [place] [address] Dr. Marianela Villa Lymphocytes/100 WBC (Bld) 12.1 % Critically low 20.5-60.0 [facility] Comment on above: Performed By: #### C DANY, BUN #### [facility] [address] [place] [address] Dr. Marianela Villa MANUAL DIFF REQ NO Normal [facility] Comment on above: Performed By: #### C DANY, BUN #### [facility] [address] [place] [address] Dr. Marianela Villa MCH (RBC) [Entitic mass] 31.3 pg Normal 26.7-34.0 [facility] Comment on above: Performed By: #### C DANY, BUN #### [facility] [address] [place] [address] Dr. Marianela Villa MCHC (RBC) [Mass/Vol] 33.4 g/dL Normal 29.9-35.2 [facility] Comment on above: Performed By: #### C DANY, BUN #### [facility] [address] [place] [address] Dr. Marianela Villa MCV (RBC) [Entitic vol] 93.7 fL Normal 81.0-99.0 [facility] Comment on above: Performed By: #### C DANY, BUN #### [facility] [address] [place] [address] Dr. Marianela Villa MONO # 1.0 103/ul Critically high 0.3-0.8 [facility] Comment on above: Performed By: #### C DANY, BUN #### [facility] [address] [place] [address] Dr. Marianela Villa Monocytes/100 WBC (Bld) 10.2 % Normal 1.7-12.0 [facility] Comment on above: Performed By: #### C DANY, BUN #### [facility] [address] [place] [address] Dr. Marianela Villa NEUT # 7.7 103/ul Critically high 1.4-6.5 [facility] Comment on above: Performed By: #### C DANY, BUN #### [facility] [address] [place] [address] Dr. Marianela Villa Neutrophils/100 WBC (Bld) 77.2 % Critically high 43.0-75.0 [facility] Comment on above: Performed By: #### C DANY, BUN #### [facility] [address] [place] [address] Dr. Marianela Villa Platelet mean volume (Bld) [Entitic vol] 10.9 fL Normal 9.5-13.5 [facility] Comment on above: Performed By: #### C DANY, BUN #### [facility] [address] [place] [address] Dr. Marianela Villa PLT 188 103/ul Normal 150-450 [facility] Comment on above: Performed By: #### C DANY, BUN #### [facility] [address] [address] [address] Marianela Villa RBC 3.19 106/ul Critically low 4.20-5.40 [facility] Comment on above: Performed By: #### C DANY, BUN #### [facility] [address] [place] [address] Dr. Marianela Villa WBC 10.0 103/ul Normal 4.0-11.0 [facility] Comment on above: Performed By: #### C DANY, BUN #### [facility] [address] [place] [address] Dr. Marianela Villa CREATININEon 07-17-2022 Creatinine [Mass/Vol] 0.78 mg/dL Normal 0.55-1.02 [facility] Comment on above: Performed By: #### C DANY, BUN #### [facility] [address] [place] [address] Dr. Marianela Villa EGFR-AF PANAMANIAN >60 Normal >=60 [facility] Comment on above: Performed By: #### C DANY, BUN #### [facility] [address] [place] [address] Dr. Marianela Villa EGFR-NON AF PANAMANIAN >60 Normal >=60 [facility] Comment on above: Performed By: #### C DANY, BUN #### [facility] [address] [place] [address] Dr. Marianela Villa PREG QUANT HCGon 07-16-2022 HCG QUANT <1 Normal [facility] Comment on above: Performed By: #### P REGQNT #### [facility] [address] [place] [address] Dr. Marianela Villa HCG RANGE SEE BELOW Normal [facility] Comment on above: Result Comment: 5-50 0.2-1 WEEK 50-500 1-2 WEEKS 100-5,000 2-3 WEEKS 500-10,000 3-4 WEEKS 1,000-50,000 4-5 WEEKS 10,000-100,000 5-6 WEEKS 15,000-200,000 6-8 WEEKS 10,000-100,000 2-3 MONTHS Performed By: #### P REGQNT #### [facility] [address] [place] [address] Dr. Marianela Villa TYPE AND SCREENon 07-13-2022 TYPE AND SCREEN Negative Normal [facility] Comment on above: Performed By: #### C DANY, BUN #### [facility] [address] [place] [address] Dr. Marianela Villa CBC AUTO DIFFon 07-01-2022 BASO # 0.0 103/ul Normal 0.0-0.1 [facility] Comment on above: Performed By: #### C BC #### [facility] [address] [place] [address] Dr. Marianela Villa Basophils/100 WBC (Bld) 0.3 % Normal 0.2-2.0 [facility] Comment on above: Performed By: #### C BC #### [facility] [address] [place] [address] Dr. Marianela Villa EO # 0.1 103/ul Normal 0.0-0.7 [facility] Comment on above: Performed By: #### C BC #### [facility] [address] [place] [address] Dr. Marianela Villa Eosinophils/100 WBC (Bld) 1.6 % Normal 0.9-7.0 [facility] Comment on above: Performed By: #### C BC #### [facility] [address] [place] [address] Dr. Marianela Villa Erythrocyte distribution width (RBC) [Ratio] 13.9 % Normal 11.0-15.0 [facility] Comment on above: Performed By: #### C BC #### [facility] [address] [place] [address] Dr. Marianela Villa Hematocrit (Bld) [Volume fraction] 37.9 % Normal 36.0-48.0 [facility] Comment on above: Performed By: #### C BC #### [facility] [address] [place] [address] Dr. Marianela Villa Hemoglobin (Bld) [Mass/Vol] 12.3 g/dL Normal 12.0-16.0 [facility] Comment on above: Performed By: #### C BC #### [facility] [address] [place] [address] Dr. Marianela Villa IG # 0.01 10e3/ul Normal 0.00-0.03 [facility] Comment on above: Performed By: #### C BC #### [facility] [address] [place] [address] Dr. Marianela Villa IG % 0.2 % Normal 0.0-0.5 [facility] Comment on above: Performed By: #### C BC #### [facility] [address] [place] [address] Dr. Marianela Villa LYMPH # 1.6 103/ul Normal 1.2-3.8 [facility] Comment on above: Performed By: #### C BC #### [facility] [address] [place] [address] Dr. Marianela Villa Lymphocytes/100 WBC (Bld) 24.6 % Normal 20.5-60.0 [facility] Comment on above: Performed By: #### C BC #### [facility] [address] [place] [address] Dr. Marianela Villa MANUAL DIFF REQ NO Normal [facility] Comment on above: Performed By: #### C BC #### [facility] [address] [place] [address] Dr. Marianela Villa MCH (RBC) [Entitic mass] 30.5 pg Normal 26.7-34.0 [facility] Comment on above: Performed By: #### C BC #### [facility] [address] [place] [address] Dr. Marianela Villa MCHC (RBC) [Mass/Vol] 32.5 g/dL Normal 29.9-35.2 [facility] Comment on above: Performed By: #### C BC #### [facility] [address] [place] [address] Dr. Marianela Villa MCV (RBC) [Entitic vol] 94.0 fL Normal 81.0-99.0 [facility] Comment on above: Performed By: #### C BC #### [facility] [address] [address] [address] Marianela Villa MONO # 0.5 103/ul Normal 0.3-0.8 [facility] Comment on above: Performed By: #### C BC #### [facility] [address] [address] [address] Marianela Villa Monocytes/100 WBC (Bld) 7.6 % Normal 1.7-12.0 [facility] Comment on above: Performed By: #### C BC #### [facility] [address] [place] [address] Dr. Marianela Villa NEUT # 4.2 103/ul Normal 1.4-6.5 [facility] Comment on above: Performed By: #### C BC #### [facility] [address] [place] [address] Dr. Marianela Villa Neutrophils/100 WBC (Bld) 65.7 % Normal 43.0-75.0 [facility] Comment on above: Performed By: #### C BC #### [facility] [address] [place] [address] Dr. Marianela Villa Platelet mean volume (Bld) [Entitic vol] 11.0 fL Normal 9.5-13.5 [facility] Comment on above: Performed By: #### C BC #### [facility] [address] [place] [address] Dr. Marianela Villa PLT 251 103/ul Normal 150-450 [facility] Comment on above: Performed By: #### C BC #### [facility] [address] [place] [address] Dr. Marianela Villa RBC 4.03 106/ul Critically low 4.20-5.40 [facility] Comment on above: Performed By: #### C BC #### [facility] [address] [place] [address] Dr. Marianela Villa WBC 6.4 103/ul Normal 4.0-11.0 [facility] Comment on above: Performed By: #### C BC #### [facility] [address] [address] [address] Marianela Villa LIVER PROFILEon 07-01-2022 Albumin [Mass/Vol] 3.7 g/dL Normal 3.4-5.0 [facility] Comment on above: Performed By: #### B MP, LIVER #### [facility] [address] [address] [address] Marianela Villa Albumin/Globulin [Mass ratio] 1.0 {ratio} Normal [facility] Comment on above: Performed By: #### B MP, LIVER #### [facility] [address] [place] [address] Dr. Marianela Villa ALP [Catalytic activity/Vol] 96 U/L Normal 46-116 [facility] Comment on above: Performed By: #### B MP, LIVER #### [facility] [address] [place] [address] Dr. Marianela Villa ALT [Catalytic activity/Vol] 25 U/L Normal 14-59 [facility] Comment on above: Performed By: #### B MP, LIVER #### [facility] [address] [place] [address] Dr. Marianela Villa AST [Catalytic activity/Vol] 16 U/L Normal 15-37 [facility] Comment on above: Performed By: #### B MP, LIVER #### [facility] [address] [place] [address] Dr. Marianela Villa BILI, CONJUGATED 0.0 mg/dL Normal 0.0-0.2 [facility] Comment on above: Performed By: #### B MP, LIVER #### [facility] [address] [place] [address] Dr. Marianela Villa Bilirubin [Mass/Vol] 0.2 mg/dL Normal 0.2-1.0 [facility] Comment on above: Performed By: #### B MP, LIVER #### [facility] [address] [place] [address] Dr. Marianela Villa Globulin (S) [Mass/Vol] 3.7 g/dL Normal [facility] Comment on above: Performed By: #### B MP, LIVER #### [facility] [address] [place] [address] Dr. Marianela Villa Protein [Mass/Vol] 7.4 g/dL Normal 6.4-8.2 [facility] Comment on above: Performed By: #### B MP, LIVER #### [facility] [address] [place] [address] Dr. Marianela Villa PROF CHEM 8 (BAS METB)on Anion gap [Moles/Vol] 13.2 mmol/L Normal [facility] Comment on above: Performed By: #### B MP, LIVER #### [facility] [address] [place] [address] Dr. Marianela Villa Calcium [Mass/Vol] 9.2 mg/dL Normal 8.5-10.1 [facility] Comment on above: Performed By: #### B MP, LIVER #### [facility] [address] [place] [address] Dr. Marianela Villa Chloride [Moles/Vol] 103 mmol/L Normal 98-107 [facility] Comment on above: Performed By: #### B MP, LIVER #### [facility] [address] [place] [address] Dr. Marianela Villa CO2 [Moles/Vol] 28.0 mmol/L Normal 21.0-32.0 [facility] Comment on above: Performed By: #### B MP, LIVER #### [facility] [address] [place] [address] Dr. Marianela Villa Creatinine [Mass/Vol] 0.75 mg/dL Normal 0.55-1.02 [facility] Comment on above: Performed By: #### B MP, LIVER #### [facility] [address] [place] [address] Dr. Marianela Villa EGFR-AF PANAMANIAN >60 Normal >=60 [facility] Comment on above: Performed By: #### B MP, LIVER #### [facility] [address] [place] [address] Dr. Marianela Villa EGFR-NON AF PANAMANIAN >60 Normal >=60 [facility] Comment on above: Performed By: #### B MP, LIVER #### [facility] [address] [address] [address] Marianela Villa Glucose [Mass/Vol] 86 mg/dL Normal 74-106 [facility] Comment on above: Performed By: #### B MP, LIVER #### [facility] [address] [address] [address] Marianela Villa Potassium [Moles/Vol] 4.2 mmol/L Normal 3.5-5.1 [facility] Comment on above: Performed By: #### B MP, LIVER #### [facility] [address] [address] [address] Marianela Villa Sodium [Moles/Vol] 140 mmol/L Normal 136-145 [facility] Comment on above: Performed By: #### B MP, LIVER #### [facility] [address] [place] [address] Dr. Marianela Villa Urea nitrogen [Mass/Vol] 8.0 mg/dL Normal 7.0-18.0 [facility] Comment on above: Performed By: #### B MP, LIVER #### [facility] [address] [address] [address] Marianela Villa Urea nitrogen/Creatinin e [Mass ratio] 10.7 mg/mg Normal [facility] Comment on above: Performed By: #### B MP, LIVER #### [facility] [address] [place] [address] Dr. Marianela Villa PROTIMEon 07-01-2022 INR Coag (PPP) [Relative time] 1.00 {INR} Normal [facility] Comment on above: Performed By: #### C DANY, BUN #### [facility] [address] [place] [address] Dr. Marianela Villa INR GUIDELINES SEE BELOW Normal [facility] Comment on above: Result Comment: MCKENNA RED INR: 2.0 - 3.0 CONDITIONS NOT LISTED BELOW 2.5 - 3.5 FOR PROSTHETIC HEART VALVE REPLACEMENT 2.5 - 3.5 RECURRENT THROMBOSIS Performed By: #### C DANY, BUN #### [facility] [address] [place] [address] Dr. Marianela Villa PT Coag (PPP) [Time] 10.6 s Normal 9.0-11.6 [facility] Comment on above: Performed By: #### C DANY, BUN #### [facility] [address] [place] [address] Dr. Marianela Villa PTTon 07-01-2022 aPTT Coag (Bld) [Time] 25.0 s Normal 22.3-36.2 [facility] Comment on above: Performed By: #### C DANY BUN #### [facility] [address] [place] [address] Dr. Marianela Villa CBC AUTO DIFFon 05-05-2022 BASO # 0.0 103/ul Normal 0.0-0.1 [facility] Comment on above: Performed By: #### P REG #### [facility] [address] [place] [address] Dr. Marianela Villa Basophils/100 WBC (Bld) 0.4 % Normal 0.2-2.0 [facility] Comment on above: Performed By: #### P REG #### [facility] [address] [place] [address] Dr. Marianela Villa EO # 0.1 103/ul Normal 0.0-0.7 [facility] Comment on above: Performed By: #### P REG #### [facility] [address] [place] [address] Dr. Marianela Villa Eosinophils/100 WBC (Bld) 0.9 % Normal 0.9-7.0 [facility] Comment on above: Performed By: #### P REG #### [facility] [address] [place] [address] Dr. Marianela Villa Erythrocyte distribution width (RBC) [Ratio] 16.8 % Critically high 11.0-15.0 [facility] Comment on above: Performed By: #### P REG #### [facility] [address] [place] [address] Dr. Marianela Villa Hematocrit (Bld) [Volume fraction] 40.8 % Normal 36.0-48.0 [facility] Comment on above: Performed By: #### P REG #### [facility] [address] [place] [address] Dr. Marianela Villa Hemoglobin (Bld) [Mass/Vol] 13.0 g/dL Normal 12.0-16.0 [facility] Comment on above: Performed By: #### P REG #### [facility] [address] [place] [address] Dr. Marianela Villa IG # 0.02 10e3/ul Normal 0.00-0.03 [facility] Comment on above: Performed By: #### P REG #### [facility] [address] [place] [address] Dr. Marianela Villa IG % 0.3 % Normal 0.0-0.5 [facility] Comment on above: Performed By: #### P REG #### [facility] [address] [place] [address] Dr. Marianela Villa LYMPH # 1.6 103/ul Normal 1.2-3.8 [facility] Comment on above: Performed By: #### P REG #### [facility] [address] [place] [address] Dr. Mraianela Villa Lymphocytes/100 WBC (Bld) 24.1 % Normal 20.5-60.0 [facility] Comment on above: Performed By: #### P REG #### [facility] [address] [place] [address] Dr. Marianela Villa MANUAL DIFF REQ NO Normal [facility] Comment on above: Performed By: #### P REG #### [facility] [address] [place] [address] Dr. Marianela Villa MCH (RBC) [Entitic mass] 30.3 pg Normal 26.7-34.0 [facility] Comment on above: Performed By: #### P REG #### [facility] [address] [place] [address] Dr. Marianela Villa MCHC (RBC) [Mass/Vol] 31.9 g/dL Normal 29.9-35.2 [facility] Comment on above: Performed By: #### P REG #### [facility] [address] [address] [address] Marianela Villa MCV (RBC) [Entitic vol] 95.1 fL Normal 81.0-99.0 [facility] Comment on above: Performed By: #### P REG #### [facility] [address] [address] [address] Marianela Villa MONO # 0.5 103/ul Normal 0.3-0.8 [facility] Comment on above: Performed By: #### P REG #### [facility] [address] [address] [address] Marianela Villa Monocytes/100 WBC (Bld) 7.6 % Normal 1.7-12.0 [facility] Comment on above: Performed By: #### P REG #### [facility] [address] [place] [address] Dr. Marianela Villa NEUT # 4.5 103/ul Normal 1.4-6.5 [facility] Comment on above: Performed By: #### P REG #### [facility] [address] [place] [address] Dr. Marianela Villa Neutrophils/100 WBC (Bld) 66.7 % Normal 43.0-75.0 [facility] Comment on above: Performed By: #### P REG #### [facility] [address] [address] [address] Marianela Villa Platelet mean volume (Bld) [Entitic vol] 10.0 fL Normal 9.5-13.5 [facility] Comment on above: Performed By: #### P REG #### [facility] [address] [place] [address] Dr. Marianela Villa PLT 253 103/ul Normal 150-450 [facility] Comment on above: Performed By: #### P REG #### [facility] [address] [address] [address] Marianela Villa RBC 4.29 106/ul Normal 4.20-5.40 [facility] Comment on above: Performed By: #### P REG #### [facility] [address] [address] [address] Marianela Villa WBC 6.8 103/ul Normal 4.0-11.0 [facility] Comment on above: Performed By: #### P REG #### [facility] [address] [address] [address] Marianela Villa FERRITINon 05-05-2022 Ferritin [Mass/Vol] 21.0 ng/mL Normal 6.2-137.0 [facility] Comment on above: Performed By: #### P REG #### [facility] [address] [address] [address] Marianela Villa IRONon 05-05-2022 Iron [Mass/Vol] 128.0 ug/dL Normal 50.0-170.0 [facility] Comment on above: Performed By: #### P REG #### [facility] [address] [address] [address] Marianela Villa US VAC ASST BX BREAST RT W C LIPon 04-29-2022 US VAC ASST BX BREAST RT W CLIP Begin Addendum #1 COLLECTED DATE/TIME: 04/26/2022, 11:20 EST Final Diagnosis Report for [facility] [place] RIGHT BREAST 1 O'CLOCK MASS; BIOPSY: [...] after pathology results are available. Normal [facility] MAMMO POST BIOPSY RIGHTon MAMMO POST BIOPSY RIGHT Patient: ANTONIO MOY Exam Date: 04/26/2022 : 1985 Gender:F Ordering : YANG LINDA [facility] Admission #: [id number] Family : Order #: [id number] CLICK HERE TO VIEW EXAM RADIOLOGY REPORT [...] M.D. on 04/26/2022 at 13:55 Normal [facility] MG MAMM DIAGNOSTIC 3D SERVANDO CA Don 04-16-2022 MG MAMM DIAGNOSTIC 3D SERVANDO CAD Patient: ANTONIO MOY Exam Date: 04/16/2022 : 1985 Gender:F Ordering : YANG LINDACrispin [facility] Admission #: [id number] Family : Order #: [id number] CLICK HERE TO VIEW EXAM RADIOLOGY REPORT [...] leukemia cancer at age 1. LOCATION: [facility] BREAST COMPOSITION: Scattered areas fibroglandular density. [...] M.D. on 04/16/2022 at 13:39 Normal [facility] US BREAST RIGHT LIMITEDon US BREAST RIGHT LIMITED Patient: ANTONIO MOY Exam Date: 04/16/2022 : 1985 Gender:F Ordering : YANG [facility] Admission #: [id number] Family : Order #: [id number] CLICK HERE TO VIEW EXAM RADIOLOGY REPORT [...] leukemia cancer at age 1. LOCATION: [facility] BREAST COMPOSITION: Scattered areas fibroglandular density. [...] Dorantes M.D. on 04/16/2022 at 13:39 Normal [facility] US PELVIS AND TRANSVAGon US PELVIS [...] KIANA CHURCH Date: 2022-04-16 10:01 Normal [facility] General Surgery Office/Clini c Noteon 04-14-2022 [...] (COVID-19) mRNA-1273 vaccine 07/19/2020 Recorded 2022-03-03: TPVALL Normal [facility] Comment on above: Result Comment: Elec tronically Signed By: BENITA GUTIERREZ, Halley Smith\Date and Time Signed: 04/14/22 16:29 EST Reminderson 04-14-2022 Reminders - From: Rain Alcantar LPN To: [facility] - Clinical; Sent: 04/14/2022 15:37:22 EST Show up: 03/07/2032 07:00:00 EST Subject: colonoscopy recall Due Date/Time: 04/07/2032 07:00:00 EST Reminder/Recall Patient is due for screening colonoscopy 04/07/2032. Normal [facility] Outside Colonoscopyon 2022 Outside Colonoscopy [id number]#1.00CD:127 Normal [facility] Pathology Noteon 04-09-2022 Pathology Note [id number]#1.00CD:127 Normal [facility] PREG HCG QUALon 04-07-2022 , QUAL Negative Normal NEGATIVE [facility] Comment on above: Performed By: #### C BC #### [facility] [address] [address] [address] Marianela Villa Lab Reportson 04-01-2022 Lab Reports [id number]#1.00CD:127 Normal [facility] Covid-19 PCR (CVDTBH)on 03-05 SARS-CoV-2 (COVID-19) RNA TERA+probe Ql (Unsp spec) Not detected Normal NOT DETECTED [facility] Comment on above: Result Comment: This test is not yet approved or cleared by the [place] FDA. When there are no FDA-approved or cleared tests available, and other criteria are met, FDA can make tests available under an emergency access mechanism called an Emergency Use Authorization (EUA). The EUA for this test is supported by the [employer] of Health and Human Service's (HHS's) declaration [...] SARS-CoV-2. Performed By: #### P REG #### [facility] [address] [address] [address] Marianela Villa PAP ACOG PANEL 2: 30 to 65on 03-21-2022 . . Normal [facility] Comment on above: Result Comment: Perf ormed at: WB Performed By: #### [id number] #### [facility] [address] [address] [address] Marianela Villa Age Gdln ACOG Testing 30-65 Normal [facility] Comment on above: Performed By: #### [id number] #### [facility] [address] [place] [address] Dr. Marianela Villa DIAGNOSIS: Comment Normal [facility] Comment on above: Result Comment: NEGA TIVE FOR INTRAEPITHELIAL LESION OR MALIGNANCY. Performed at: WB Performed By: #### [id number] #### [facility] [address] [place] [address] Dr. Marianela Villa HPV Aptima Negative Normal Negative [facility] Comment on above: Result Comment: This nucleic acid amplification test detects fourteen high-risk HPV types (16,18,31,33,35,39,45,51,52,56,58,59,66,68) without differentiation. Performed at: =G Performed By: #### [id number] #### [facility] [address] [place] [address] Dr. Marianela Villa HPV Genotype Reflex Comment Normal [facility] Comment on above: Result Comment: Crit eria not met, HPV Genotype not performed. Performed at: WB Performed By: #### [id number] #### [facility] [address] [place] [address] Dr. Marianela Villa Methodology: Comment Normal [facility] Comment on above: Result Comment: This liquid based ThinPrep(R) pap test was screened with the use of an image guided system. Performed at: WB Performed By: #### [id number] #### [facility] [address] [place] [address] Dr. Marianela Villa Note: Comment Normal [facility] Comment on above: Result Comment: The Pap smear is a screening test designed to aid in the detection of premalignant and malignant conditions of the uterine cervix. It is not a diagnostic procedure and should not be used as the sole means of detecting cervical cancer. Both false-positive and false-negative reports do occur. . Performed at: WB Performed By: #### [id number] #### [facility] [address] [place] [address] Dr. Marianela Villa Performed by: Comment Normal [facility] Comment on above: Result Comment: Nancy Leslie, Stone Operator (ASCP) Performed at: WB Performed By: #### [id number] #### [facility] [address] [place] [address] Dr. Marianela Villa Specimen adequacy: Comment Normal [facility] Comment on above: Result Comment: Sati sfactory for evaluation. No endocervical component is identified. Performed at: WB Performed By: #### [id number] #### [facility] [address] [place] [address] Dr. Marianela Villa Pre-Certification Formon Pre-Certification Form [id number]#1.00CD:127 Normal [facility] Facesheeton 03-09-2022 Facesheet [id number]#1.00CD:127 Normal [facility] Patient Correspondenceon Patient Correspondence [id number]#[id number]:127 Normal [facility] Consent for Procedure/Surger yon 03-08-2022 Consent for Procedure/Surgery [id number]:127 Normal [facility] CBC AUTO DIFFon 03-01-2022 BASO # 0.0 103/ul Normal 0.0-0.1 [facility] Comment on above: Performed By: #### C BC #### [facility] [address] [place] [address] Dr. Marianela Villa Basophils/100 WBC (Bld) 0.5 % Normal 0.2-2.0 [facility] Comment on above: Performed By: #### C BC #### [facility] [address] [place] [address] Dr. Marianela Villa EO # 0.1 103/ul Normal 0.0-0.7 [facility] Comment on above: Performed By: #### C BC #### [facility] [address] [place] [address] Dr. Marianela Villa Eosinophils/100 WBC (Bld) 1.3 % Normal 0.9-7.0 [facility] Comment on above: Performed By: #### C BC #### [facility] [address] [place] [address] Dr. Marianela Villa Erythrocyte distribution width (RBC) [Ratio] 25.9 % Critically high 11.0-15.0 [facility] Comment on above: Performed By: #### C BC #### [facility] [address] [place] [address] Dr. Marianela Villa Hematocrit (Bld) [Volume fraction] 36.4 % Normal 36.0-48.0 [facility] Comment on above: Performed By: #### C BC #### [facility] [address] [place] [address] Dr. Marianela Villa Hemoglobin (Bld) [Mass/Vol] 11.5 g/dL Critically low 12.0-16.0 [facility] Comment on above: Performed By: #### C BC #### [facility] [address] [place] [address] Dr. Marianela Villa IG # 0.01 10e3/ul Normal 0.00-0.03 [facility] Comment on above: Performed By: #### C BC #### [facility] [address] [place] [address] Dr. Marianela Villa IG % 0.2 % Normal 0.0-0.5 [facility] Comment on above: Performed By: #### C BC #### [facility] [address] [place] [address] Dr. Marianela Villa LYMPH # 1.7 103/ul Normal 1.2-3.8 [facility] Comment on above: Performed By: #### C BC #### [facility] [address] [place] [address] Dr. Marianela Villa Lymphocytes/100 WBC (Bld) 31.4 % Normal 20.5-60.0 [facility] Comment on above: Performed By: #### C BC #### [facility] [address] [place] [address] Dr. Marianela Villa MANUAL DIFF REQ NO Normal [facility] Comment on above: Performed By: #### C BC #### [facility] [address] [place] [address] Dr. Marianela Villa MCH (RBC) [Entitic mass] 26.6 pg Critically low 26.7-34.0 [facility] Comment on above: Performed By: #### C BC #### [facility] [address] [place] [address] Dr. Marianela Villa MCHC (RBC) [Mass/Vol] 31.6 g/dL Normal 29.9-35.2 [facility] Comment on above: Performed By: #### C BC #### [facility] [address] [place] [address] Dr. Marianela Villa MCV (RBC) [Entitic vol] 84.1 fL Normal 81.0-99.0 [facility] Comment on above: Performed By: #### C BC #### [facility] [address] [place] [address] Dr. Marianela Villa MONO # 0.4 103/ul Normal 0.3-0.8 [facility] Comment on above: Performed By: #### C BC #### [facility] [address] [place] [address] Dr. Marianela Villa Monocytes/100 WBC (Bld) 7.6 % Normal 1.7-12.0 [facility] Comment on above: Performed By: #### C BC #### [facility] [address] [place] [address] Dr. Marianela Villa NEUT # 3.3 103/ul Normal 1.4-6.5 [facility] Comment on above: Performed By: #### C BC #### [facility] [address] [place] [address] Dr. Marianela Villa Neutrophils/100 WBC (Bld) 59.0 % Normal 43.0-75.0 [facility] Comment on above: Performed By: #### C BC #### [facility] [address] [place] [address] Dr. Marianela Villa Platelet mean volume (Bld) [Entitic vol] 11.2 fL Normal 9.5-13.5 [facility] Comment on above: Performed By: #### C BC #### [facility] [address] [place] [address] Dr. Marianela Villa PLT 297 103/ul Normal 150-450 [facility] Comment on above: Performed By: #### C BC #### [facility] [address] [place] [address] Dr. Marianela Villa RBC 4.33 106/ul Normal 4.20-5.40 [facility] Comment on above: Performed By: #### C BC #### [facility] [address] [place] [address] Dr. Marianela Villa WBC 5.5 103/ul Normal 4.0-11.0 [facility] Comment on above: Performed By: #### C BC #### [facility] [address] [place] [address] Dr. Marianela Villa CBC AUTO DIFFon 02-18-2022 BASO # 0.0 103/ul Normal 0.0-0.1 [facility] Comment on above: Performed By: #### P REG #### [facility] [address] [place] [address] Dr. Marianela Villa Basophils/100 WBC (Bld) 0.3 % Normal 0.2-2.0 [facility] Comment on above: Performed By: #### P REG #### [facility] [address] [place] [address] Dr. Marianela Villa EO # 0.1 103/ul Normal 0.0-0.7 [facility] Comment on above: Performed By: #### P REG #### [facility] [address] [place] [address] Dr. Marianela Villa Eosinophils/100 WBC (Bld) 1.0 % Normal 0.9-7.0 [facility] Comment on above: Performed By: #### P REG #### [facility] [address] [place] [address] Dr. Marianela Villa Erythrocyte distribution width (RBC) [Ratio] 25.0 % Critically high 11.0-15.0 [facility] Comment on above: Performed By: #### P REG #### [facility] [address] [place] [address] Dr. Marianela Villa Hematocrit (Bld) [Volume fraction] 34.9 % Critically low 36.0-48.0 [facility] Comment on above: Performed By: #### P REG #### [facility] [address] [place] [address] Dr. Marianela Villa Hemoglobin (Bld) [Mass/Vol] 10.6 g/dL Critically low 12.0-16.0 [facility] Comment on above: Performed By: #### P REG #### [facility] [address] [place] [address] Dr. Marianela Villa IG # 0.02 10e3/ul Normal 0.00-0.03 [facility] Comment on above: Performed By: #### P REG #### [facility] [address] [place] [address] Dr. Marianela Villa IG % 0.3 % Normal 0.0-0.5 [facility] Comment on above: Performed By: #### P REG #### [facility] [address] [place] [address] Dr. Marianela Villa LYMPH # 1.8 103/ul Normal 1.2-3.8 [facility] Comment on above: Performed By: #### P REG #### [facility] [address] [place] [address] Dr. Marianela Villa Lymphocytes/100 WBC (Bld) 26.0 % Normal 20.5-60.0 [facility] Comment on above: Performed By: #### P REG #### [facility] [address] [place] [address] Dr. Marianela Villa MANUAL DIFF REQ NO Normal [facility] Comment on above: Performed By: #### P REG #### [facility] [address] [place] [address] Dr. Marianela Villa MCH (RBC) [Entitic mass] 24.9 pg Critically low 26.7-34.0 [facility] Comment on above: Performed By: #### P REG #### [facility] [address] [address] [address] Marianela Villa MCHC (RBC) [Mass/Vol] 30.4 g/dL Normal 29.9-35.2 [facility] Comment on above: Performed By: #### P REG #### [facility] [address] [address] [address] Marianela Villa MCV (RBC) [Entitic vol] 81.9 fL Normal 81.0-99.0 [facility] Comment on above: Performed By: #### P REG #### [facility] [address] [address] [address] Marianela Villa MONO # 0.4 103/ul Normal 0.3-0.8 [facility] Comment on above: Performed By: #### P REG #### [facility] [address] [place] [address] Dr. Marianela Villa Monocytes/100 WBC (Bld) 5.5 % Normal 1.7-12.0 [facility] Comment on above: Performed By: #### P REG #### [facility] [address] [address] [address] Marianela Villa NEUT # 4.5 103/ul Normal 1.4-6.5 [facility] Comment on above: Performed By: #### P REG #### [facility] [address] [place] [address] Dr. Marianela Villa Neutrophils/100 WBC (Bld) 66.9 % Normal 43.0-75.0 [facility] Comment on above: Performed By: #### P REG #### [facility] [address] [address] [address] Marianela Villa Platelet mean volume (Bld) [Entitic vol] 11.1 fL Normal 9.5-13.5 [facility] Comment on above: Performed By: #### P REG #### [facility] [address] [address] [address] Marianela Villa PLT 198 103/ul Normal 150-450 [facility] Comment on above: Performed By: #### P REG #### [facility] [address] [place] [address] Dr. Marianela Villa RBC 4.26 106/ul Normal 4.20-5.40 [facility] Comment on above: Performed By: #### P REG #### [facility] [address] [place] [address] Dr. Marianela Villa WBC 6.8 103/ul Normal 4.0-11.0 [facility] Comment on above: Performed By: #### P REG #### [facility] [address] [place] [address] Dr. Marianela Villa IRONon 02-18-2022 Iron [Mass/Vol] 57.0 ug/dL Normal 50.0-170.0 [facility] Comment on above: Performed By: #### C DANY, BUN #### [facility] [address] [place] [address] Dr. Marianela Villa OCC BLD IMMUNO SCREENon OCCULT BLOOD Negative Normal NEGATIVE [facility] Comment on above: Performed By: #### O BSCRN #### [facility] [address] [place] [address] Dr. Marianela Villa Physician Referralon 022 Physician Referral [id number]:127 Normal [facility] CBC AUTO DIFFon 02-02-2022 BASO # 0.0 103/ul Normal 0.0-0.1 [facility] Comment on above: Performed By: #### C BC #### [facility] [address] [place] [address] Dr. Marianela Villa Basophils/100 WBC (Bld) 0.4 % Normal 0.2-2.0 [facility] Comment on above: Performed By: #### C BC #### [facility] [address] [place] [address] Dr. Marianela Villa EO # 0.1 103/ul Normal 0.0-0.7 [facility] Comment on above: Performed By: #### C BC #### [facility] [address] [place] [address] Dr. Marianela Villa Eosinophils/100 WBC (Bld) 1.3 % Normal 0.9-7.0 [facility] Comment on above: Performed By: #### C BC #### [facility] [address] [place] [address] Dr. Marianela Villa Erythrocyte distribution width (RBC) [Ratio] 17.7 % Critically high 11.0-15.0 [facility] Comment on above: Performed By: #### C BC #### [facility] [address] [place] [address] Dr. Marianela Villa Hematocrit (Bld) [Volume fraction] 30.3 % Critically low 36.0-48.0 [facility] Comment on above: Performed By: #### C BC #### [facility] [address] [place] [address] Dr. Marianela Villa Hemoglobin (Bld) [Mass/Vol] 9.1 g/dL Critically low 12.0-16.0 [facility] Comment on above: Performed By: #### C BC #### [facility] [address] [place] [address] Dr. Marianela Villa IG # 0.01 10e3/ul Normal 0.00-0.03 [facility] Comment on above: Performed By: #### C BC #### [facility] [address] [place] [address] Dr. Marianela Villa IG % 0.1 % Normal 0.0-0.5 [facility] Comment on above: Performed By: #### C BC #### [facility] [address] [place] [address] Dr. Marianela Villa LYMPH # 1.9 103/ul Normal 1.2-3.8 [facility] Comment on above: Performed By: #### C BC #### [facility] [address] [place] [address] Dr. Marianela Villa Lymphocytes/100 WBC (Bld) 28.6 % Normal 20.5-60.0 [facility] Comment on above: Performed By: #### C BC #### [facility] [address] [place] [address] Dr. Marianela Villa MANUAL DIFF REQ NO Normal [facility] Comment on above: Performed By: #### C BC #### [facility] [address] [place] [address] Dr. Marianela Villa MCH (RBC) [Entitic mass] 23.3 pg Critically low 26.7-34.0 [facility] Comment on above: Performed By: #### C BC #### [facility] [address] [place] [address] Dr. Marianela Villa MCHC (RBC) [Mass/Vol] 30.0 g/dL Normal 29.9-35.2 [facility] Comment on above: Performed By: #### C BC #### [facility] [address] [place] [address] Dr. Marianela Villa MCV (RBC) [Entitic vol] 77.5 fL Critically low 81.0-99.0 [facility] Comment on above: Performed By: #### C BC #### [facility] [address] [place] [address] Dr. Marianela Villa MONO # 0.5 103/ul Normal 0.3-0.8 [facility] Comment on above: Performed By: #### C BC #### [facility] [address] [place] [address] Dr. Marianela Villa Monocytes/100 WBC (Bld) 6.7 % Normal 1.7-12.0 [facility] Comment on above: Performed By: #### C BC #### [facility] [address] [place] [address] Dr. Marianela Villa NEUT # 4.2 103/ul Normal 1.4-6.5 [facility] Comment on above: Performed By: #### C BC #### [facility] [address] [place] [address] Dr. Marianela Villa Neutrophils/100 WBC (Bld) 62.9 % Normal 43.0-75.0 [facility] Comment on above: Performed By: #### C BC #### [facility] [address] [place] [address] Dr. Marianela Villa Platelet mean volume (Bld) [Entitic vol] 11.0 fL Normal 9.5-13.5 [facility] Comment on above: Performed By: #### C BC #### [facility] [address] [place] [address] Dr. Marianela Villa PLT 284 103/ul Normal 150-450 [facility] Comment on above: Performed By: #### C BC #### [facility] [address] [place] [address] Dr. Marianela Villa RBC 3.91 106/ul Critically low 4.20-5.40 [facility] Comment on above: Performed By: #### C BC #### [facility] [address] [place] [address] Dr. Marianela Villa WBC 6.7 103/ul Normal 4.0-11.0 [facility] Comment on above: Performed By: #### C BC #### [facility] [address] [place] [address] Dr. Marianela Villa CRPon 02-02-2022 CRP [Mass/Vol] mg/L Normal <=1.0 [facility] Comment on above: Performed By: #### C DANY BUN #### [facility] [address] [place] [address] Dr. Marianela Villa FREE T3on 02-02-2022 FREE T3 2.06 pg/mlL Critically low 2.18-3.98 [facility] Comment on above: Performed By: #### C DANY BUN #### [facility] [address] [place] [address] Dr. Marianela Villa FREE T4on 02-02-2022 Free T4 [Mass/Vol] 0.89 ng/dL Normal 0.76-1.46 [facility] Comment on above: Performed By: #### P REG #### [facility] [address] [place] [address] Dr. Marianela Villa GLYCOHEMOGLOBIN A1Con 2021 ADA RECOMMENDATION SEE BELOW Normal [facility] Comment on above: Result Comment: ADA RECOMMENDED LIMIT 4.0 - 6.0 ADA THERAPEUTIC TARGET < 7.0 ACTION SUGGESTED > 7.0 Performed By: #### C DANY, BUN #### [facility] [address] [address] [address] Marianela Villa Glucose [Mass/Vol] 131 mg/dL Normal [facility] Comment on above: Performed By: #### C DANY, BUN #### [facility] [address] [address] [address] Marianela Villa HbA1c (Bld) [Mass fraction] 6.2 % Normal 4.5-6.2 [facility] Comment on above: Performed By: #### C DANY, BUN #### [facility] [address] [place] [address] Dr. Marianela Villa IRONon 02-02-2022 Iron [Mass/Vol] 15.0 ug/dL Critically low 50.0-170.0 [facility] Comment on above: Performed By: #### P REG #### [facility] [address] [place] [address] Dr. Marianela Villa LIPID PROFILEon 02-02-2022 CHOL-HDL RATIO NORM SEE BELOW Normal [facility] Comment on above: Result Comment: 3.3 - 4.4 LOW RISK 4.4 - 7.1 AVERAGE RISK 7.1 - 11.0 MODERATE RISK >11.0 HIGH RISK Performed By: #### C DANY, BUN #### [facility] [address] [place] [address] Dr. Marianela Villa Cholesterol [Mass/Vol] 187 mg/dL Normal <=200 [facility] Comment on above: Performed By: #### C DANY, BUN #### [facility] [address] [place] [address] Dr. Marianela Villa Cholesterol in HDL [Mass/Vol] 56 mg/dL Normal 40-60 [facility] Comment on above: Performed By: #### C DANY, BUN #### [facility] [address] [place] [address] Dr. Marianela Villa Cholesterol in LDL [Mass/Vol] 114.6 mg/dL Normal [facility] Comment on above: Performed By: #### C DANY, BUN #### [facility] [address] [address] [address] Marianela Villa Cholesterol.total/ Cholesterol in HDL [Mass ratio] 3.3 {ratio} Normal [facility] Comment on above: Performed By: #### C DANY, BUN #### [facility] [address] [address] [address] Marianela Villa HDL NORMAL > or = 60 mg/dl - LO W CARDIOVASCULAR RISK <40 mg/dl - HIGH CARDIOVASCULAR RISK Normal [facility] Comment on above: Performed By: #### C DANY BUN #### [facility] [address] [place] [address] Dr. Marianela Villa LDL CALC NORMAL SEE BELOW Normal [facility] Comment on above: Result Comment: <100 mg/dl OPTIMAL 100 - 129 mg/dl NEAR OR ABOVE OPTIMAL 130 - 159 mg/dl BORDERLINE HIGH 160 - 189 mg/dl HIGH >190 mg/dl VERY HIGH Performed By: #### C DANY BUN #### [facility] [address] [place] [address] Dr. Marianela Villa Triglyceride [Mass/Vol] 82 mg/dL Normal <=150 [facility] Comment on above: Performed By: #### C DANY BUN #### [facility] [address] [place] [address] Dr. Marianela Villa VLDL CALC 16.4 mg/dL Normal [facility] Comment on above: Performed By: #### Santos SAENZ BUN #### [facility] [address] [place] [address] Dr. Marianela Villa MAGNESIUMon 02-02-2022 Magnesium [Mass/Vol] 2.0 mg/dL Normal 1.8-2.4 [facility] Comment on above: Performed By: #### C DANY BUN #### [facility] [address] [place] [address] Dr. Marianela Villa PREG HCG QUALon 02-02-2022 , QUAL Negative Normal NEGATIVE [facility] Comment on above: Performed By: #### P REG #### [facility] [address] [place] [address] Dr. Marianela Villa PROF 14(COMP METB)on 022 Albumin [Mass/Vol] 4.0 g/dL Normal 3.4-5.0 [facility] Comment on above: Performed By: #### C DANY, BUN #### [facility] [address] [address] [address] Marianela Vlila Albumin/Globulin [Mass ratio] 1.0 {ratio} Normal [facility] Comment on above: Performed By: #### C DANY, BUN #### [facility] [address] [address] [address] Marianela Villa ALP [Catalytic activity/Vol] 173 U/L Critically high 46-116 [facility] Comment on above: Performed By: #### C DANY, BUN #### [facility] [address] [place] [address] Dr. Marianela Villa ALT [Catalytic activity/Vol] 45 U/L Normal 14-59 [facility] Comment on above: Performed By: #### C DANY, BUN #### [facility] [address] [address] [address] Marianela Villa Anion gap [Moles/Vol] 12.9 mmol/L Normal [facility] Comment on above: Performed By: #### Santos SAENZ, BUN #### [facility] [address] [address] [address] Marianela Villa AST [Catalytic activity/Vol] 35 U/L Normal 15-37 [facility] Comment on above: Performed By: #### C DANY, BUN #### [facility] [address] [place] [address] Dr. Marianela Villa Bilirubin [Mass/Vol] 0.3 mg/dL Normal 0.2-1.0 [facility] Comment on above: Performed By: #### C DANY, BUN #### [facility] [address] [place] [address] Dr. Marianela Villa Calcium [Mass/Vol] 9.1 mg/dL Normal 8.5-10.1 [facility] Comment on above: Performed By: #### C DANY, BUN #### [facility] [address] [address] [address] Marianela Villa Chloride [Moles/Vol] 103 mmol/L Normal 98-107 [facility] Comment on above: Performed By: #### C DANY, BUN #### [facility] [address] [address] [address] Marianela Villa CO2 [Moles/Vol] 27.0 mmol/L Normal 21.0-32.0 [facility] Comment on above: Performed By: #### C DANY, BUN #### [facility] [address] [address] [address] Marianela Villa Creatinine [Mass/Vol] 0.70 mg/dL Normal 0.55-1.02 [facility] Comment on above: Performed By: #### C DANY, BUN #### [facility] [address] [place] [address] Dr. Marianela Villa EGFR-AF PANAMANIAN >60 Normal >=60 [facility] Comment on above: Performed By: #### C DANY, BUN #### [facility] [address] [place] [address] Dr. Marianela Villa EGFR-NON AF PANAMANIAN >60 Normal >=60 [facility] Comment on above: Performed By: #### C DANY, BUN #### [facility] [address] [address] [address] Marianela Villa Globulin (S) [Mass/Vol] 3.9 g/dL Normal [facility] Comment on above: Performed By: #### C DANY, BUN #### [facility] [address] [address] [address] Marianela Villa Glucose [Mass/Vol] 88 mg/dL Normal 74-106 [facility] Comment on above: Performed By: #### C DANY, BUN #### [facility] [address] [place] [address] Dr. Marianela Villa Potassium [Moles/Vol] 3.9 mmol/L Normal 3.5-5.1 [facility] Comment on above: Performed By: #### C DANY, BUN #### [facility] [address] [address] [address] Marianela Villa Protein [Mass/Vol] 7.9 g/dL Normal 6.4-8.2 [facility] Comment on above: Performed By: #### C DANY, BUN #### [facility] [address] [address] [address] Marianela Villa Sodium [Moles/Vol] 139 mmol/L Normal 136-145 [facility] Comment on above: Performed By: #### C DANY, BUN #### [facility] [address] [place] [address] Dr. Marianela Villa Urea nitrogen [Mass/Vol] 6.0 mg/dL Critically low 7.0-18.0 [facility] Comment on above: Performed By: #### C DANY, BUN #### [facility] [address] [place] [address] Dr. Marianela Villa Urea nitrogen/Creatinin e [Mass ratio] 8.6 mg/mg Normal [facility] Comment on above: Performed By: #### C DANY, BUN #### [facility] [address] [place] [address] Dr. Marianela Villa [facility] 49 mm/hr Critically high <=20 [facility] Comment on above: Performed By: #### C BC #### [facility] [address] [place] [address] Dr. Marianela Villa TSHon 02-02-2022 TSH 1.378 uIU/mL Normal 0.358-3.740 [facility] Comment on above: Performed By: #### C DANY, BUN #### [facility] [address] [place] [address] Dr. Marianela Villa UA RANDOM W/MICROSCOPICon BACTERIA NONE SEEN Normal NONE SEEN [facility] Comment on above: Performed By: #### P REG #### [facility] [address] [place] [address] Dr. Marianela Villa Bilirubin Ql (U) Negative Normal NEGATIVE [facility] Comment on above: Performed By: #### P REG #### [facility] [address] [place] [address] Dr. Marianela Villa CAST NONE SEEN Normal NONE SEEN [facility] Comment on above: Performed By: #### P REG #### [facility] [address] [place] [address] Dr. Marianela Villa Clarity (U) CLEAR Normal CLEAR [facility] Comment on above: Performed By: #### P REG #### [facility] [address] [place] [address] Dr. Marianela Villa Color (U) LT. YELLOW Normal YELLOW [facility] Comment on above: Performed By: #### P REG #### [facility] [address] [place] [address] Dr. Marianela Villa Crystals LM Nom (Urine sed) NONE SEEN Normal NONE SEEN [facility] Comment on above: Performed By: #### P REG #### [facility] [address] [place] [address] Dr. Marianela Villa Epithelial cells LM Ql (Urine sed) FEW Abnormal NONE SEEN /RARE [facility] Comment on above: Performed By: #### P REG #### [facility] [address] [place] [address] Dr. Marianela Villa Glucose Ql (U) Negative Normal NEGATIVE [facility] Comment on above: Performed By: #### P REG #### [facility] [address] [place] [address] Dr. Marianela Villa Hemoglobin Ql (U) Negative Normal NEGATIVE [facility] Comment on above: Performed By: #### P REG #### [facility] [address] [place] [address] Dr. Marianela Villa Ketones Ql (U) Negative Normal NEGATIVE [facility] Comment on above: Performed By: #### P REG #### [facility] [address] [place] [address] Dr. Marianela Villa LEUKOCYTES Negative Normal NEGATIVE [facility] Comment on above: Performed By: #### P REG #### [facility] [address] [place] [address] Dr. Marianela Villa MUCOUS NONE SEEN Normal NONE SEEN [facility] Comment on above: Performed By: #### P REG #### [facility] [address] [place] [address] Dr. Marianela Villa Nitrite Ql (U) Negative Normal NEGATIVE [facility] Comment on above: Performed By: #### P REG #### [facility] [address] [place] [address] Dr. Marianela Villa pH (U) 6.5 [pH] Normal 5-9 [facility] Comment on above: Performed By: #### P REG #### [facility] [address] [place] [address] Dr. Marianela Villa RBC NONE SEEN Abnormal 0-2 [facility] Comment on above: Performed By: #### P REG #### [facility] [address] [place] [address] Dr. Marianela Villa SPEC GRAVITY <=1.005 Abnormal 1.005-<=1.0 25 [facility] Comment on above: Performed By: #### P REG #### [facility] [address] [place] [address] Dr. Marianela Villa UA PROTEIN Negative Normal NEGATIVE/ TRACE [facility] Comment on above: Performed By: #### P REG #### [facility] [address] [place] [address] Dr. Marianela Villa Urobilinogen Qn (U) 0.2 {Trish'U}/dL Normal 0.2 - 1.0 [facility] Comment on above: Performed By: #### P REG #### [facility] [address] [place] [address] Dr. Marianela Villa WBC NONE SEEN Normal NONE SEEN [facility] Comment on above: Performed By: #### P REG #### [facility] [address] [place] [address] Dr. Marianela Villa VITAMIN B12on 02-02-2022 Cobalamin (Vitamin B12) [Mass/Vol] 630.0 pg/mL Normal 193.0-986.0 [facility] Comment on above: Performed By: #### P REG #### [facility] [address] [place], [place] [address] Dr. Marianela Villa VITAMIN D 25 OHon 02-02-2022 VIT D 25-OH 42.7 ng/mL Normal [facility] Comment on above: Performed By: #### P REG #### [facility] [address] [place], [place] [address] Dr. Marianela Villa VIT D RANGES SEE BELOW Normal [facility] Comment on above: Result Comment: <20 ng/mL Vit D deficient 20 - <30 ng/mL Vit D insufficient 30 - 100 ng/mL Vit D sufficient >100 ng/mL Potential Toxicity Performed By: #### P REG #### [facility] [address] [place], [place] [address] Dr. Marianela Villa [facility] Reporton 01-02-2018 Report Normal [facility] Comment on above: Performed By: #### D NASTUDY #### Performed at [facility], [address] [place] [id number] Vital Signs Date Time Vital Sign Value Performing Clinician Linda blake 03-05-2022 13:19-0500 Blood Pressure Location [facility] [place] 03-05-2022 13:19-0500 Diastolic blood pressure 76 mm[Hg] [facility] [place] 03-05-2022 13:19-0500 Heart rate 70 /min [facility] [place] 03-05-2022 13:19-0500 Respiratory rate 16 /min [facility] [place] 03-05-2022 13:19-0500 Systolic blood pressure 120 mm[Hg] [facility] [place] Encounters Encounter Date Encounter Type Care Provider Facility Start: 11-07-2023 End: 11-07-2023 ambulatory DYLAN RENZO Not Available Start: 10-03-2023 End: 10-03-2023 ambulatory DYLAN RENZO Not Available Start: 09-29-2023 End: 09-29-2023 ambulatory LINDACrispin REDMOND Not Available Start: 08-31-2023 End: 08-31-2023 ambulatory LINDA REDMOND Not Available Start: 07-19-2022 Encounter for preprocedural laboratory examination DR DYLAN RAJAN . [facility] Start: 07-16-2022 End: 07-17-2022 ambulatory YANG REDMOND Facility:[facility] Start: 07-13-2022 End: 07-14-2022 ambulatory YANG REDMOND Facility:[facility] Start: 07-13-2022 End: 07-14-2022 Encounter for preprocedural laboratory examination YANG REDMOND Facility:[facility] Start: 07-09-2022 Encounter for preprocedural cardiovascular examination DR DYLAN RAJAN . [facility] Start: 07-09-2022 Encounter for preprocedural laboratory examination DR DYLAN RAJAN . [facility] Start: 07-01-2022 End: 07-02-[address] DYLAN RAJAN . Facility:[facility] Start: 07-01-2022 End: 07-02-2022 Encounter for preprocedural cardiovascular examination DR DYLAN RAJAN . Facility:[facility] Start: 05-05-2022 End: 05-06-2022 ambulatory YANG REDMOND Facility:[facility] Start: 04-26-2022 End: 04-26-2022 ambulatory YANG REDMOND Facility:[facility] Start: 04-16-2022 End: 04-17-2022 ambulatory YANG REDMOND Facility:[facility] Start: 04-14-2022 End: 04-15-2022 [facility] Start: 04-14-2022 End: 04-14-2022 Patient encounter procedure Halley BARBOSA [facility] [place] Start: 04-07-2022 End: 04-08-2022 ambulatory Halley BARBOSA Facility:[id number] Start: 03-31-2022 End: 04-01-[address] HALLEY BARBOSA . Facility:[facility] Start: 03-11-2022 End: 03-11-2022 ambulatory YANG CONDEA EDILMAREI Facility:[facility] Start: 03-05-2022 End: 03-06-2022 ambulatory Halley R NILL Facility:[facility] Start: 03-05-2022 End: 03-05-2022 Patient encounter procedure Halley R NILL [facility]/Richie [facility] Start: 03-01-2022 End: 03-02-2022 ambulatory CUSTOMER ACCOUNT MANAGER LINDA REDMOND Facility:[facility] Start: 02-18-2022 End: 02-19-2022 ambulatory CUSTOMER ACCOUNT MANAGER LINDA REDMOND Facility:[facility] Start: 02-04-2022 End: 02-04-2022 ambulatory CUSTOMER ACCOUNT MANAGER LINDA REDMOND Facility:[facility] Start: 02-03-2022 ambulatory Halley NILL Facility:[facility] Start: 02-02-2022 End: 02-03-2022 ambulatory YANG REDMOND Facility:[facility] Start: 01-02-2018 Patient encounter procedure NO PCP [facility] Procedures Date Procedure Procedure Detail Performing Clinician Start: 04-07-2022 Colonoscopy Halley NI LL Start: 04-07-2022 Esophagogastroduodenoscopy Halley BARBOSA Start: 04-04-2008 section Tara tu NILL Start: 04-04-2007 section Taar l NILL Extraction of wisdom tooth M ichael NILL Immunizations Immunization Date Immunization Notes Care Provider Fa cility 08-16-2020 SARS-CoV-2 (COVID-19 ) mRNA-1273 vaccine Halley NILL [facility] [place] Comment on above: Result Comment: 2021: TPVALL 07-19-2020 SARS-CoV-2 (COVID-19 ) mRNA-1273 vaccine Halley NILL [facility] [place] Comment on above: Result Comment: 2021: TPVALL NEGATED: Highlighted row has not occurred!03-05-2022 influenza virus vaccine, unspecified formulation Halley BENITA [facility] [place] Payers Date Payer Category Payer Unknown [id number] 2.16.8 [id number] 1983 Unknown [id number] 2.16.8 [id number] 1983 Unknown [id number] 2.16.8 [id number] 1983 Unknown [id number] 2.16.84 0.1.507067.3.579.2.593 1983 Unknown [id number] 2.16.84 0.1.007648.3.579.2.593 1983 Unknown [id number] 2.16.84 0.1.706452.3.579.2.593 1983 Unknown [id number] 2.16.84 0.1.599793.3.579.2.593 1983 Unknown [id number] 2.16.84 0.1.757596.3.579.2.593 1983 Unknown [id number] 2.16.84 0.1.027016.3.579.2.593 1983 Unknown [id number] 2.16.84 0.1.174517.3.579.2.593 1983 Unknown [id number] 2.16.84 0.1.959917.3.579.2.593 1983 Unknown [id number] 2.16.84 0.1.092251.3.579.2.593 1983 Unknown [id number] 2.16.84 0.1.449004.3.579.2.593 1983 Unknown [id number] 2.16.84 0.1.578125.3.579.2.593 1983 Unknown [id number] 2.16.84 0.1.514928.3.579.2.593 1983 Unknown [id number] 2.16.84 0.1.469237.3.579.2.593 1983 Unknown [id number] 2.16.84 0.1.092550.3.579.2.9 1983 Unknown [id number] 2.16.84 0.1.069580.3.579.2.9 1983 Unknown [id number] 2.16.84 0.1.273889.3.579.2.1258 1983 Unknown [id number] 2.16.84 0.1.625919.3.579.2.1259 1959 Private Health Insurance [id number] Social History Date Type Detail Facility Start: 03-05-2022 Tobacco smoking status Never s moked tobacco (finding) [facility] [place] Tobacco smoking status Never [facility] [place] Sex Assigned At Female [facility] Functional Status Date Assessment Result Facility 03-05-2022 Functional Status N/A [facility] Clinical Note 07-16-2022 Note Date & Type Note Facility 07-16-2022 Note OP Note OPERATION DATE: 07/16/2022 ADDENDUM: Please note that a left ovarian cystectomy was performed using the LigaSure apparatus. [facility] Clinical Note 07-16-2022 Note Date & Type Note Facility 07-16-2022 Note OPERATIVE NOTE OPERATION DATE: 07/26/2022 PROCEDURE: Robotic assisted laparoscopic hysterectomy with right salpingectomy, left cystectomy of endometrioma and cystoscopy. PREOPERATIVE DIAGNOSIS: Menorrhagia, dysmenorrhea, pelvic pain, dyspareunia. POSTOPERATIVE DIAGNOSIS: Menorrhagia, dysmenorrhea, pelvic pain, dyspareunia including a left ovarian endometrioma. ANESTHESIA: General. SURGEON: Dylan Rajan D.O. CONCRETE WORKER: PJ Quevedo URINE OUTPUT: Yellow and clear. [...] Anesthesia first. Patient tolerated procedure well. [facility] Clinical Note 04-07-2022 Note Date & [...] based on the pathology results. CC: Linda Redmond, YANG [facility] Clinical Note 03-05-2022 Note Date & [...] (COVID-19) mRNA-1273 vaccine 07/19/2020 Recorded 2022-03-03: TPVALL [facility] Comment on above: Result Comment: Elec tronically Signed By: BENITA GUTIERREZ, Halley Smith\Date and Time Signed: 03/05/22 13:57 EST Evaluation + Plan note Note Date & Type Note Facility Evaluation + Plan note No data available for this section [facility] [place] [facility] Discharge instructions Note Date & Type Note Facility Hospital Discharge instructions No data available for this section [facility] Progress note Note Date & Type Note Facility Progress note No data available for this section [facility] Summary Purpose Family History No Family History Records FoundNo Family History Records FoundNo Family History Records FoundNo Family History Records Found Advance Directives No Advanced Directives Records FoundNo Advanced Directives Records FoundNo Advanced Directives Records FoundNo Advanced Directives Records Found Additional Source Comments INFORMATION SOURCE (unrecogn ized section and content) DATE CREATED AUTHOR 05/16/2018 [facility] DATE CREATED AUTHOR AUTHOR'S ORGANIZ ATION 04/17/2022 [facility] DATE CREATED AUTHOR AUTHOR'S ORGANIZ ATION 08/03/2022 [facility] DATE CREATED AUTHOR AUTHOR'S ORGANIZ ATION 11/09/2023 [facility] Specialists EPIC Patient Care team informatio n (unrecognized section and content) Personnel Name: LINDA REDMOND CNP Address: Address: [address] [place] [address] Personnel Name: IVANAlexLINDA MINAYA CNP Address: Address: [address] [place] [address] FOR RECORDS PERTAINING TO PATIENTS WHO ARE [...] BE BASED ON THE PRIMARY CLINICAL RECORDS. [facility]. provides no warranty or guarantee of the accuracy or completeness of information in this document.
== END 2023-11-11 10:52 | disposition home or self-care (01) ==
LOC: PST 10:52
PROVIDERS: PCP Nurse Practitioner; Visit Provider Obstetrics & Gynecology
DX: Z01.818 Encounter for other preprocedural examination (principal); R10.2 Pelvic and perineal pain; N83.292 Other ovarian cyst, left side

== ENCOUNTER 2023-11-25 08:22 | Day surgery (SDC) | payer OTHER, SELFPAY ==
[2023-11-11 11:17] VITALS: BP 118/76; PULSE 95; TEMP 36.6; O2SAT 97; BMI 41.0
[2023-11-25] VITALS (12 sets, daily range): BP systolic 110–148; BP diastolic 68–98; PULSE 68–110; TEMP 36.1–36.6; O2SAT 96–100; BMI 40.9
--- OUTSIDE RECORDS SUMMARY | 2023-11-25 08:27 | XMS_ITS | CCD ---
Author Organization [facility] Care Team Providers Care Hunter Name Role Phone PCP, NO Primary Care Unavailable MENDEL CORADO Attending Unavailable MENDEL CORADO Referring Unavailable AICLINDA SERVIN Primary Care Physician Halley BARBOSA Attending Unavailable AICHLINDA MINAYA J Referring Unavailabl e Halley BARBOSA Attending Unavailable Halley BARBOSA Attending Unavailable Halley BARBOSA Referring Unavailable AICHHOLZ, PUMP INSTALLATION AND SERVICER LINDA Primary Care Unavailable AICHHOLZ, PUMP INSTALLATION AND SERVICER LINDA Admitting Unavailable AICHHOLZ, PUMP INSTALLATION AND SERVICER LINDA Consulting Unavailable AICHHOLZ, PUMP INSTALLATION AND SERVICER LINDA Attending Unavailable AICHHOLZ, PUMP INSTALLATION AND SERVICER LINDA Admitting Unavailable AICHHOLZ, PUMP INSTALLATION AND SERVICER LINDA Consulting Unavailable AICHHOLZ, PUMP INSTALLATION AND SERVICER LINDA Attending Unavailable AICHHOLZ, PUMP INSTALLATION AND SERVICER LINDA Primary Care Unavailable AICHHOLZ, PUMP INSTALLATION AND SERVICER LINDA Consulting Unavailable AICHHOLZ, PUMP INSTALLATION AND SERVICER LINDA Attending Unavailable AICHHOLZ, PUMP INSTALLATION AND SERVICER LINDA Admitting Unavailable AICHHOLZ, PUMP INSTALLATION AND SERVICER LINDA Primary Care Unavailable DR TODD DORANTES Consulting Unavailable KIANA CHURCH Consulting Unavailable AICHHOLZ, PUMP INSTALLATION AND SERVICER LINDA Consulting Unavailable AICHHOLZ, PUMP INSTALLATION AND SERVICER LINDA Attending Unavailable AICHHOLZ, PUMP INSTALLATION AND SERVICER LINDA Admitting Unavailable AICHHOLZ, PUMP INSTALLATION AND SERVICER LINDA Primary Care Unavailable DR TODD DORANTES Consulting Unavailable NILL ., DR ROWLEY Attending Unavailable NILL ., DR ROWLEY Admitting Unavailable AICHHOLZ, PUMP INSTALLATION AND SERVICER LINDA Primary Care Unavailable NILL ., DR ROWLEY Consulting Unavailable MINGO WHITMAN, VLAD Consulting Unavailable ALDO ELIZABETH Consulting Unavailable JED LINK Consulting Unavailable NILL ., DR ROWLEY Admitting Unavailable NILL ., DR ROWLEY Consulting Unavailable AICHHOLZ, PUMP INSTALLATION AND SERVICER LINDA Primary Care Unavailable NILL ., DR ROWLEY Attending Unavailable AICHHOLZ, PUMP INSTALLATION AND SERVICER LINDA Primary Care Unavailable RENZO ., DR RICHARDSON Admitting Unavailable RENZO ., DR RICHARDSON Consulting Unavailable RENZO ., DR RICHARDSON Attending Unavailable RENZO ., DR RICHARDSON Consulting Unavailable RENZO ., DR RICHARDSON Attending Unavailable RENZO ., DR RICHARDSON Admitting Unavailable AICHHOLZ, PUMP INSTALLATION AND SERVICER LINDA Primary Care Unavailable AICHHOLZ, PUMP INSTALLATION AND SERVICER LINDA Primary Care Unavailable RENZO ., DR RICHARDSON Consulting Unavailable RENZO ., DR RICHARDSON Attending Unavailable RENZO ., DR RICHARDSON Admitting Unavailable ROBERT HOPKINS Consulting Unavailable ABDI GALVAN Consulting Unavailable AICHHOLZ, PUMP INSTALLATION AND SERVICER LINDA Primary Care Unavailable AICHHOLZ, PUMP INSTALLATION AND SERVICER LINDA Attending Unavailable AICHHOLZ, PUMP INSTALLATION AND SERVICER LINDA Admitting Unavailable AICHHOLZ, PUMP INSTALLATION AND SERVICER LINDA Consulting Unavailable AICHHOLZ, PUMP INSTALLATION AND SERVICER LINDA Consulting Unavailable AICHHOLZ, PUMP INSTALLATION AND SERVICER LINDA Attending Unavailable AICHHOLZ, PUMP INSTALLATION AND SERVICER LINDA Admitting Unavailable AICHHOLZ, PUMP INSTALLATION AND SERVICER LINDA Primary Care Unavailable AICHHOLZ, PUMP INSTALLATION AND SERVICER LINDA Admitting Unavailable AICHHOLZ, PUMP INSTALLATION AND SERVICER LINDA Primary Care Unavailable AICHHOLZ, PUMP INSTALLATION AND SERVICER LINDA Consulting Unavailable AICHHOLZ, PUMP INSTALLATION AND SERVICER LINDA Attending Unavailable AICHHOLZ, PUMP INSTALLATION AND SERVICER LINDA Primary Care Unavailable AICHHOLZ, PUMP INSTALLATION AND SERVICER LINDA Admitting Unavailable AICHHOLZ, PUMP INSTALLATION AND SERVICER LINDA Consulting Unavailable AICHHOLZ, PUMP INSTALLATION AND SERVICER LINDA Attending Unavailable AICHHOLZ, LINDA Attending Unavailable AICHHOLZ, LINDA Attending Unavailable DYLAN RAJAN Attending Unavailable DYLAN RAJAN Attending Unavailable Allergies Allergy Classification Reported Allergen(s) Allergy Type Date of Onset Reaction(s) Facility (3 sources) Cephalexin; Translations: [cephalexin] Drug Allergy Syncope (disorder) General Surgery [place] (2 sources) Cephalexin Drug Allergy [facility] Medications Current Medications Medication Drug Class(es) [...] Onset: 04-14-2022 Other aftercare (1 source) 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 Marianela Villa CBC AUTO DIFFon 07-17-2022 BASO # 0.0 103/ul Normal 0.0-0.1 [facility] Comment on above: Performed By: #### Santos SAENZ BUN #### [facility] [address] [place] [address] Dr. Marianela Villa Basophils/100 WBC (Bld) 0.1 % Critically low 0.2-2.0 [facility] Comment on above: Performed By: #### Santos SAENZ, BUN #### [facility] [address] [place] [address] Dr. Marianela Villa EO # 0.0 103/ul Normal 0.0-0.7 [facility] Comment on above: Performed By: #### C DANY, BUN #### [facility] [address] [place] [address] Dr. Marianela Villa Eosinophils/100 WBC (Bld) 0.0 % Critically low 0.9-7.0 [facility] Comment on above: Performed By: #### C DANY, BUN #### [facility] [address] [place] [address] Dr. Marianela Villa Erythrocyte distribution width (RBC) [Ratio] 14.5 % Normal 11.0-15.0 [facility] Comment on above: Performed By: #### C DANY, BUN #### [facility] [address] [place] [address] Dr. Marianela Villa Hematocrit (Bld) [Volume fraction] 29.9 % Critically low 36.0-48.0 [facility] Comment on above: Performed By: #### C DANY, BUN #### [facility] [address] [place] [address] Dr. Marianela Villa Hemoglobin (Bld) [Mass/Vol] 10.0 g/dL Critically low 12.0-16.0 [facility] Comment on above: Performed By: #### C DANY, BUN #### [facility] [address] [place] [address] Dr. Marianela Villa IG # 0.04 10e3/ul Critically high 0.00-0.03 [facility] Comment on above: Performed By: #### C DANY, BUN #### [facility] [address] [place] [address] Dr. Marianela Villa IG % 0.4 % Normal 0.0-0.5 [facility] Comment on above: Performed By: #### C DANY, BUN #### [facility] [address] [place] [address] Dr. Marianeal Villa LYMPH # 1.2 103/ul Normal 1.2-3.8 [facility] Comment on above: Performed By: #### C DANY, BUN #### [facility] [address] [place] [address] Dr. Marianela Villa Lymphocytes/100 WBC (Bld) 12.1 % Critically low 20.5-60.0 [facility] Comment on above: Performed By: #### C DANY, BUN #### [facility] [address] [place] [address] Dr. Marianela Villa MANUAL DIFF REQ NO Normal [facility] Comment on above: Performed By: #### C DANY, BUN #### [facility] [address] [place] [address] Dr. Marianela Villa MCH (RBC) [Entitic mass] 31.3 pg Normal 26.7-34.0 [facility] Comment on above: Performed By: #### C DANY, BUN #### [facility] [address] [place] [address] Dr. Marianela Villa MCHC (RBC) [Mass/Vol] 33.4 g/dL Normal 29.9-35.2 [facility] Comment on above: Performed By: #### C DANY, BUN #### [facility] [address] [place] [address] Dr. Marianela Villa MCV (RBC) [Entitic vol] 93.7 fL Normal 81.0-99.0 [facility] Comment on above: Performed By: #### C DANY, BUN #### [facility] [address] [place] [address] Dr. Marianela Villa MONO # 1.0 103/ul Critically high 0.3-0.8 [facility] Comment on above: Performed By: #### C DANY, BUN #### [facility] [address] [place] [address] Dr. Marianela Villa Monocytes/100 WBC (Bld) 10.2 % Normal 1.7-12.0 [facility] Comment on above: Performed By: #### C DANY, BUN #### [facility] [address] [place] [address] Dr. Marianela Villa NEUT # 7.7 103/ul Critically high 1.4-6.5 [facility] Comment on above: Performed By: #### C DANY, BUN #### [facility] [address] [place] [address] Dr. Marianela Villa Neutrophils/100 WBC (Bld) 77.2 % Critically high 43.0-75.0 [facility] Comment on above: Performed By: #### C DANY, BUN #### [facility] [address] [place] [address] Dr. Marianela Villa Platelet mean volume (Bld) [Entitic vol] 10.9 fL Normal 9.5-13.5 [facility] Comment on above: Performed By: #### C DANY, BUN #### [facility] [address] [place] [address] Dr. Marianela Villa PLT 188 103/ul Normal 150-450 [facility] Comment on above: Performed By: #### C DANY, BUN #### [facility] [address] [address] [address] Marianela Villa RBC 3.19 106/ul Critically low 4.20-5.40 [facility] Comment on above: Performed By: #### C DANY, BUN #### [facility] [address] [place] [address] Dr. Marianela Villa WBC 10.0 103/ul Normal 4.0-11.0 [facility] Comment on above: Performed By: #### C DANY, BUN #### [facility] [address] [place] [address] Dr. Marianela Villa CREATININEon 07-17-2022 Creatinine [Mass/Vol] 0.78 mg/dL Normal 0.55-1.02 [facility] Comment on above: Performed By: #### C DANY, BUN #### [facility] [address] [place] [address] Dr. Marianela Villa EGFR-AF TAJIK >60 Normal >=60 [facility] Comment on above: Performed By: #### C DANY, BUN #### [facility] [address] [place] [address] Dr. Mraianela Villa EGFR-NON AF TAJIK >60 Normal >=60 [facility] Comment on above: Performed By: #### C DANY, BUN #### [facility] [address] [place] [address] Dr. Marianela Villa PREG QUANT HCGon 07-16-2022 HCG QUANT <1 Normal [facility] Comment on above: Performed By: #### P REGQNT #### [facility] [address] [place] [address] Dr. Marianela Villa HCG RANGE SEE BELOW Normal [facility] Comment on above: Result Comment: 5-50 0.2-1 WEEK 50-500 1-2 WEEKS 100-5,000 2-3 WEEKS 500-10,000 3-4 WEEKS 1,000-50,000 4-5 WEEKS 10,000-100,000 5-6 WEEKS 15,000-200,000 6-8 WEEKS 10,000-100,000 2-3 MONTHS Performed By: #### P REGQNT #### [facility] [address] [place] [address] Dr. Marianela Villa TYPE AND SCREENon 07-13-2022 TYPE AND SCREEN Negative Normal [facility] Comment on above: Performed By: #### C DANY, BUN #### [facility] [address] [place] [address] Dr. Marianela Villa CBC AUTO DIFFon 07-01-2022 BASO # 0.0 103/ul Normal 0.0-0.1 [facility] Comment on above: Performed By: #### C BC #### [facility] [address] [place] [address] Dr. Marianela Villa Basophils/100 WBC (Bld) 0.3 % Normal 0.2-2.0 [facility] Comment on above: Performed By: #### C BC #### [facility] [address] [place] [address] Dr. Marianela Villa EO # 0.1 103/ul Normal 0.0-0.7 [facility] Comment on above: Performed By: #### C BC #### [facility] [address] [place] [address] Dr. Marianela Villa Eosinophils/100 WBC (Bld) 1.6 % Normal 0.9-7.0 [facility] Comment on above: Performed By: #### C BC #### [facility] [address] [place] [address] Dr. Marianela Vilal Erythrocyte distribution width (RBC) [Ratio] 13.9 % Normal 11.0-15.0 [facility] Comment on above: Performed By: #### C BC #### [facility] [address] [place] [address] Dr. Marianela Villa Hematocrit (Bld) [Volume fraction] 37.9 % Normal 36.0-48.0 [facility] Comment on above: Performed By: #### C BC #### [facility] [address] [place] [address] Dr. Mairanela Villa Hemoglobin (Bld) [Mass/Vol] 12.3 g/dL Normal 12.0-16.0 [facility] Comment on above: Performed By: #### C BC #### [facility] [address] [place] [address] Dr. Marianela Villa IG # 0.01 10e3/ul Normal 0.00-0.03 [facility] Comment on above: Performed By: #### C BC #### [facility] [address] [place] [address] Dr. Marianela Villa IG % 0.2 % Normal 0.0-0.5 [facility] Comment on above: Performed By: #### C BC #### [facility] [address] [place] [address] Dr. Marianela Villa LYMPH # 1.6 103/ul Normal 1.2-3.8 [facility] Comment on above: Performed By: #### C BC #### [facility] [address] [place] [address] Dr. Marianela Villa Lymphocytes/100 WBC (Bld) 24.6 % Normal 20.5-60.0 [facility] Comment on above: Performed By: #### C BC #### [facility] [address] [place] [address] Dr. Marianela Villa MANUAL DIFF REQ NO Normal [facility] Comment on above: Performed By: #### C BC #### [facility] [address] [place] [address] Dr. Marianela Villa MCH (RBC) [Entitic mass] 30.5 pg Normal 26.7-34.0 [facility] Comment on above: Performed By: #### C BC #### [facility] [address] [place] [address] Dr. Marianela Villa MCHC (RBC) [Mass/Vol] 32.5 g/dL Normal 29.9-35.2 [facility] Comment on above: Performed By: #### C BC #### [facility] [address] [place] [address] Dr. Marianela Villa MCV (RBC) [Entitic vol] 94.0 fL Normal 81.0-99.0 [facility] Comment on above: Performed By: #### C BC #### [facility] [address] [address] [address] Marianela Villa MONO # 0.5 103/ul Normal 0.3-0.8 [facility] Comment on above: Performed By: #### C BC #### [facility] [address] [address] [address] Marianela Villa Monocytes/100 WBC (Bld) 7.6 % Normal 1.7-12.0 [facility] Comment on above: Performed By: #### C BC #### [facility] [address] [place] [address] Dr. Marianela Villa NEUT # 4.2 103/ul Normal 1.4-6.5 [facility] Comment on above: Performed By: #### C BC #### [facility] [address] [place] [address] Dr. Marianela Villa Neutrophils/100 WBC (Bld) 65.7 % Normal 43.0-75.0 [facility] Comment on above: Performed By: #### C BC #### [facility] [address] [place] [address] Dr. Marianela Villa Platelet mean volume (Bld) [Entitic vol] 11.0 fL Normal 9.5-13.5 [facility] Comment on above: Performed By: #### C BC #### [facility] [address] [place] [address] Dr. Marianela Villa PLT 251 103/ul Normal 150-450 [facility] Comment on above: Performed By: #### C BC #### [facility] [address] [place] [address] Dr. Marianela Villa RBC 4.03 106/ul Critically low 4.20-5.40 [facility] Comment on above: Performed By: #### C BC #### [facility] [address] [place] [address] Dr. Marianela Villa WBC 6.4 103/ul Normal 4.0-11.0 [facility] Comment on above: Performed By: #### C BC #### [facility] [address] [address] [address] Marianela Villa LIVER PROFILEon 07-01-2022 Albumin [Mass/Vol] 3.7 g/dL Normal 3.4-5.0 [facility] Comment on above: Performed By: #### B MP, LIVER #### [facility] [address] [address] [address] Marianela Villa Albumin/Globulin [Mass ratio] 1.0 {ratio} Normal [facility] Comment on above: Performed By: #### B MP, LIVER #### [facility] [address] [place] [address] Dr. Marianela Villa ALP [Catalytic activity/Vol] 96 U/L Normal 46-116 [facility] Comment on above: Performed By: #### B MP, LIVER #### [facility] [address] [place] [address] Dr. Marianela Villa ALT [Catalytic activity/Vol] 25 U/L Normal 14-59 [facility] Comment on above: Performed By: #### B MP, LIVER #### [facility] [address] [place] [address] Dr. Marianela Villa AST [Catalytic activity/Vol] 16 U/L Normal 15-37 [facility] Comment on above: Performed By: #### B MP, LIVER #### [facility] [address] [place] [address] Dr. Marianela Villa BILI, CONJUGATED 0.0 mg/dL Normal 0.0-0.2 [facility] Comment on above: Performed By: #### B MP, LIVER #### [facility] [address] [place] [address] Dr. Marianela Villa Bilirubin [Mass/Vol] 0.2 mg/dL Normal 0.2-1.0 [facility] Comment on above: Performed By: #### B MP, LIVER #### [facility] [address] [place] [address] Dr. Marianela Villa Globulin (S) [Mass/Vol] 3.7 g/dL Normal [facility] Comment on above: Performed By: #### B MP, LIVER #### [facility] [address] [place] [address] Dr. Marianela Villa Protein [Mass/Vol] 7.4 g/dL Normal 6.4-8.2 [facility] Comment on above: Performed By: #### B MP, LIVER #### [facility] [address] [place] [address] Dr. Marianela Villa PROF CHEM 8 (BAS METB)on Anion gap [Moles/Vol] 13.2 mmol/L Normal [facility] Comment on above: Performed By: #### B MP, LIVER #### [facility] [address] [place] [address] Dr. Marianela Villa Calcium [Mass/Vol] 9.2 mg/dL Normal 8.5-10.1 [facility] Comment on above: Performed By: #### B MP, LIVER #### [facility] [address] [place] [address] Dr. Marianela Villa Chloride [Moles/Vol] 103 mmol/L Normal 98-107 [facility] Comment on above: Performed By: #### B MP, LIVER #### [facility] [address] [place] [address] Dr. Marianela Villa CO2 [Moles/Vol] 28.0 mmol/L Normal 21.0-32.0 [facility] Comment on above: Performed By: #### B MP, LIVER #### [facility] [address] [place] [address] Dr. Marianela Villa Creatinine [Mass/Vol] 0.75 mg/dL Normal 0.55-1.02 [facility] Comment on above: Performed By: #### B MP, LIVER #### [facility] [address] [place] [address] Dr. Marianela Villa EGFR-AF TAJIK >60 Normal >=60 [facility] Comment on above: Performed By: #### B MP, LIVER #### [facility] [address] [place] [address] Dr. Marianela Villa EGFR-NON AF TAJIK >60 Normal >=60 [facility] Comment on above: Performed By: #### B MP, LIVER #### [facility] [address] [address] [address] Marianela Villa Glucose [Mass/Vol] 86 mg/dL Normal 74-106 [facility] Comment on above: Performed By: #### B MP, LIVER #### [facility] [address] [address] [address] Marianela Villa Potassium [Moles/Vol] 4.2 mmol/L Normal 3.5-5.1 [facility] Comment on above: Performed By: #### B MP, LIVER #### [facility] [address] [address] [address] Marianela Villa Sodium [Moles/Vol] 140 mmol/L Normal 136-145 [facility] Comment on above: Performed By: #### B MP, LIVER #### [facility] [address] [place] [address] Dr. Marianela Villa Urea nitrogen [Mass/Vol] 8.0 mg/dL Normal 7.0-18.0 [facility] Comment on above: Performed By: #### B MP, LIVER #### [facility] [address] [address] [address] Marianela Villa Urea nitrogen/Creatinin e [Mass ratio] 10.7 mg/mg Normal [facility] Comment on above: Performed By: #### B MP, LIVER #### [facility] [address] [place] [address] Dr. Marianela Villa PROTIMEon 07-01-2022 INR Coag (PPP) [Relative time] 1.00 {INR} Normal [facility] Comment on above: Performed By: #### C DANY, BUN #### [facility] [address] [place] [address] Dr. Marianela Villa INR GUIDELINES SEE BELOW Normal [facility] Comment on above: Result Comment: MCKEN[place] RED INR: 2.0 - 3.0 CONDITIONS NOT LISTED BELOW 2.5 - 3.5 FOR PROSTHETIC HEART VALVE REPLACEMENT 2.5 - 3.5 RECURRENT THROMBOSIS Performed By: #### C DANY, BUN #### [facility] [address] [place] [address] Dr. Marianela Villa PT Coag (PPP) [Time] 10.6 s Normal 9.0-11.6 [facility] Comment on above: Performed By: #### C DANY, BUN #### [facility] [address] [place] [address] Dr. Marianlea Villa PTTon 07-01-2022 aPTT Coag (Bld) [Time] 25.0 s Normal 22.3-36.2 [facility] Comment on above: Performed By: #### C DANY BUN #### [facility] [address] [place] [address] Dr. Marianela Villa CBC AUTO DIFFon 05-05-2022 BASO # 0.0 103/ul Normal 0.0-0.1 [facility] Comment on above: Performed By: #### P REG #### [facility] [address] [place] [address] Dr. Marianela Villa Basophils/100 WBC (Bld) 0.4 % Normal 0.2-2.0 [facility] Comment on above: Performed By: #### P REG #### [facility] [address] [place] [address] Dr. Marianela Villa EO # 0.1 103/ul Normal 0.0-0.7 [facility] Comment on above: Performed By: #### P REG #### [facility] [address] [place] [address] Dr. Marianela Villa Eosinophils/100 WBC (Bld) 0.9 % Normal 0.9-7.0 [facility] Comment on above: Performed By: #### P REG #### [facility] [address] [place] [address] Dr. Marianela Villa Erythrocyte distribution width (RBC) [Ratio] 16.8 % Critically high 11.0-15.0 [facility] Comment on above: Performed By: #### P REG #### [facility] [address] [place] [address] Dr. Marianela Villa Hematocrit (Bld) [Volume fraction] 40.8 % Normal 36.0-48.0 [facility] Comment on above: Performed By: #### P REG #### [facility] [address] [place] [address] Dr. Marianela Villa Hemoglobin (Bld) [Mass/Vol] 13.0 g/dL Normal 12.0-16.0 [facility] Comment on above: Performed By: #### P REG #### [facility] [address] [place] [address] Dr. Marianela Villa IG # 0.02 10e3/ul Normal 0.00-0.03 [facility] Comment on above: Performed By: #### P REG #### [facility] [address] [place] [address] Dr. Marianela Villa IG % 0.3 % Normal 0.0-0.5 [facility] Comment on above: Performed By: #### P REG #### [facility] [address] [place] [address] Dr. Marianela Villa LYMPH # 1.6 103/ul Normal 1.2-3.8 [facility] Comment on above: Performed By: #### P REG #### [facility] [address] [place] [address] Dr. Marianela Villa Lymphocytes/100 WBC (Bld) 24.1 % Normal 20.5-60.0 [facility] Comment on above: Performed By: #### P REG #### [facility] [address] [place] [address] Dr. Marianela Villa MANUAL DIFF REQ NO Normal [facility] Comment on above: Performed By: #### P REG #### [facility] [address] [place] [address] Dr. Marianela Villa MCH (RBC) [Entitic mass] 30.3 pg Normal 26.7-34.0 [facility] Comment on above: Performed By: #### P REG #### [facility] [address] [place] [address] Dr. Marianela Villa MCHC (RBC) [Mass/Vol] 31.9 g/dL Normal 29.9-35.2 [facility] Comment on above: Performed By: #### P REG #### [facility] [address] [address] [address] Marianela Villa MCV (RBC) [Entitic vol] 95.1 fL Normal 81.0-99.0 [facility] Comment on above: Performed By: #### P REG #### [facility] [address] [address] [address] Marianela Villa MONO # 0.5 103/ul Normal 0.3-0.8 [facility] Comment on above: Performed By: #### P REG #### [facility] [address] [address] [address] Marianela Villa Monocytes/100 WBC (Bld) 7.6 % Normal 1.7-12.0 [facility] Comment on above: Performed By: #### P REG #### [facility] [address] [place] [address] Dr. Marianela Villa NEUT # 4.5 103/ul Normal 1.4-6.5 [facility] Comment on above: Performed By: #### P REG #### [facility] [address] [place] [address] Dr. Marianela Villa Neutrophils/100 WBC (Bld) 66.7 % Normal 43.0-75.0 [facility] Comment on above: Performed By: #### P REG #### [facility] [address] [address] [address] Marianela Villa Platelet mean volume (Bld) [Entitic vol] 10.0 fL Normal 9.5-13.5 [facility] Comment on above: Performed By: #### P REG #### [facility] [address] [place] [address] Dr. Marianela Villa PLT 253 103/ul Normal 150-450 [facility] Comment on above: Performed By: #### P REG #### [facility] [address] [address] [address] Marianela Villa RBC 4.29 106/ul Normal 4.20-5.40 [facility] Comment on above: Performed By: #### P REG #### [facility] [address] [address] [address] Marianela Villa WBC 6.8 103/ul Normal 4.0-11.0 [facility] Comment on above: Performed By: #### P REG #### [facility] [address] [address] [address] Marianela Villa FERRITINon 05-05-2022 Ferritin [Mass/Vol] 21.0 ng/mL Normal 6.2-137.0 [facility] Comment on above: Performed By: #### P REG #### [facility] [address] [address] [address] Marianela Villa IRONon 05-05-2022 Iron [Mass/Vol] 128.0 ug/dL Normal 50.0-170.0 [facility] Comment on above: Performed By: #### P REG #### [facility] [address] [address] [address] Marianela Villa US VAC ASST BX BREAST RT W C LIPon 04-29-2022 US VAC ASST BX BREAST RT W CLIP Begin Addendum #1 COLLECTED DATE/TIME: 04/26/2022, 11:20 EST Final Diagnosis Report for [facility] [place] RIGHT BREAST 1 O'CLOCK MASS; BIOPSY: [...] after pathology results are available. Normal [facility] MAMMO POST BIOPSY RIGHTon MAMMO POST BIOPSY RIGHT Patient: ANTONIO MOY Exam Date: 04/26/2022 : 1985 Gender:F Ordering : YANG LINDA [facility] Admission #: [id number] Family : Order #: [id number] CLICK HERE TO VIEW EXAM RADIOLOGY REPORT [...] M.D. on 04/26/2022 at 13:55 Normal [facility] MG MAMM DIAGNOSTIC 3D SERVANDO CA Don 04-16-2022 MG MAMM DIAGNOSTIC 3D SERVANDO CAD Patient: ANTONIO MOY Exam Date: 04/16/2022 : 1985 Gender:F Ordering : YANG LINDACrispin [facility] Admission #: [id number] Family : Order #: [id number] CLICK HERE TO VIEW EXAM RADIOLOGY REPORT [...] leukemia cancer at age 1. LOCATION: [facility] BREAST COMPOSITION: Scattered areas fibroglandular density. FINDINGS: [...] M.D. on 04/16/2022 at 13:39 Normal [facility] US BREAST RIGHT LIMITEDon US BREAST RIGHT LIMITED Patient: ANTONIO MOY Exam Date: 04/16/2022 : 1985 Gender:F Ordering : YANG [facility] Admission #: [id number] Family : Order #: [id number] CLICK HERE TO VIEW EXAM RADIOLOGY REPORT [...] leukemia cancer at age 1. LOCATION: [facility] BREAST COMPOSITION: Scattered areas fibroglandular density. FINDINGS: [...] Dorantes M.D. on 04/16/2022 at 13:39 Normal [facility] US PELVIS AND TRANSVAGon US PELVIS [...] KIANA CHURCH Date: 2022-04-16 10:01 Normal [facility] General Surgery Office/Clini c Noteon 04-14-2022 General [...] mRNA-1273 vaccine 07/19/2020 Recorded 2022-03-03: TPVALL Normal [facility] Comment on above: Result Comment: Elec tronically Signed By: BENITA GUTIERREZ, Halley Smith\Date and Time Signed: 04/14/22 16:29 EST Reminderson 04-14-2022 Reminders - From: Rain Alcantar LPN To: GSN - Clinical; Sent: 04/14/2022 15:37:22 EST Show up: 03/07/2032 07:00:00 EST Subject: colonoscopy recall Due Date/Time: 04/07/2032 07:00:00 EST Reminder/Recall Patient is due for screening colonoscopy 04/07/2032. Normal [facility] Outside Colonoscopyon 2022 Outside Colonoscopy [id number]#1.00CD:127 Normal [facility] Pathology Noteon 04-09-2022 Pathology Note [id number]#1.00CD:127 Normal [facility] PREG HCG QUALon 04-07-2022 , QUAL Negative Normal NEGATIVE [facility] Comment on above: Performed By: #### C BC #### [facility] [address] [address] [address] Marianela Villa Lab Reportson 04-01-2022 Lab Reports [id number]#1.00CD:127 Normal [facility] Covid-19 PCR (CVDTBH)on 03-05 SARS-CoV-2 (COVID-19) RNA TERA+probe Ql (Unsp spec) Not detected Normal NOT DETECTED [facility] Comment on above: Result Comment: This test is not yet approved or cleared by the [place] FDA. When there are no FDA-approved or cleared tests available, and other criteria are met, FDA can make tests available under an emergency access mechanism called an Emergency Use Authorization (EUA). The EUA for this test is supported by the Investigative Writer of Health and Human Service's (HHS's) declaration [...] SARS-CoV-2. Performed By: #### P REG #### [facility] [address] [address] [address] Marianela Villa PAP ACOG PANEL 2: 30 to 65on 03-21-2022 . . Normal [facility] Comment on above: Result Comment: Perf ormed at: WB Performed By: #### [id number] #### [facility] [address] [address] [address] Marianela Villa Age Gdln ACOG Testing 30-65 Normal [facility] Comment on above: Performed By: #### [id number] #### [facility] [address] [place] [address] Dr. Marianela Villa DIAGNOSIS: Comment Normal [facility] Comment on above: Result Comment: NEGA TIVE FOR INTRAEPITHELIAL LESION OR MALIGNANCY. Performed at: WB Performed By: #### [id number] #### [facility] [address] [place] [address] Dr. Marianela Villa HPV Aptima Negative Normal Negative [facility] Comment on above: Result Comment: This nucleic acid amplification test detects fourteen high-risk HPV types (16,18,31,33,35,39,45,51,52,56,58,59,66,68) without differentiation. Performed at: =G Performed By: #### [id number] #### [facility] [address] [place] [address] Dr. Marianela Villa HPV Genotype Reflex Comment Normal [facility] Comment on above: Result Comment: Crit eria not met, HPV Genotype not performed. Performed at: WB Performed By: #### [id number] #### [facility] [address] [place] [address] Dr. Marianela Villa Methodology: Comment Normal [facility] Comment on above: Result Comment: This liquid based ThinPrep(R) pap test was screened with the use of an image guided system. Performed at: WB Performed By: #### [id number] #### [facility] [address] [place] [address] Dr. Marianela Villa Note: Comment Normal [facility] Comment on above: Result Comment: The Pap smear is a screening test designed to aid in the detection of premalignant and malignant conditions of the uterine cervix. It is not a diagnostic procedure and should not be used as the sole means of detecting cervical cancer. Both false-positive and false-negative reports do occur. . Performed at: WB Performed By: #### [id number] #### [facility] [address] [place] [address] Dr. Marianela Villa Performed by: Comment Normal [facility] Comment on above: Result Comment: Nancy Leslie, Garage Door Hanger (ASCP) Performed at: WB Performed By: #### [id number] #### [facility] [address] [place] [address] Dr. Marianela Villa Specimen adequacy: Comment Normal [facility] Comment on above: Result Comment: Sati sfactory for evaluation. No endocervical component is identified. Performed at: WB Performed By: #### 4 [id number] #### [facility] [address] [place] [address] Dr. Marianela Villa Pre-Certification Formon Pre-Certification Form [id number]#1.00CD:127 Normal [facility] Facesheeton 03-09-2022 Facesheet [id number]#1.00CD:127 Normal [facility] Patient Correspondenceon Patient Correspondence [id number]#[id number]:127 Normal [facility] Consent for Procedure/Surger yon 03-08-2022 Consent for Procedure/Surgery [id number]#[id number]:127 Normal [facility] CBC AUTO DIFFon 03-01-2022 BASO # 0.0 103/ul Normal 0.0-0.1 [facility] Comment on above: Performed By: #### C BC #### [facility] [address] [place] [address] Dr. Marianela Villa Basophils/100 WBC (Bld) 0.5 % Normal 0.2-2.0 [facility] Comment on above: Performed By: #### C BC #### [facility] [address] [place] [address] Dr. Marianela Villa EO # 0.1 103/ul Normal 0.0-0.7 [facility] Comment on above: Performed By: #### C BC #### [facility] [address] [place] [address] Dr. Marianela Villa Eosinophils/100 WBC (Bld) 1.3 % Normal 0.9-7.0 [facility] Comment on above: Performed By: #### C BC #### [facility] [address] [place] [address] Dr. Marianela Villa Erythrocyte distribution width (RBC) [Ratio] 25.9 % Critically high 11.0-15.0 [facility] Comment on above: Performed By: #### C BC #### [facility] [address] [place] [address] Dr. Marianela Villa Hematocrit (Bld) [Volume fraction] 36.4 % Normal 36.0-48.0 [facility] Comment on above: Performed By: #### C BC #### [facility] [address] [place] [address] Dr. Marianela Villa Hemoglobin (Bld) [Mass/Vol] 11.5 g/dL Critically low 12.0-16.0 [facility] Comment on above: Performed By: #### C BC #### [facility] [address] [place] [address] Dr. Marianela Villa IG # 0.01 10e3/ul Normal 0.00-0.03 [facility] Comment on above: Performed By: #### C BC #### [facility] [address] [place] [address] Dr. Marianela Villa IG % 0.2 % Normal 0.0-0.5 [facility] Comment on above: Performed By: #### C BC #### [facility] [address] [place] [address] Dr. Marianela Villa LYMPH # 1.7 103/ul Normal 1.2-3.8 [facility] Comment on above: Performed By: #### C BC #### [facility] [address] [place] [address] Dr. Marianela Villa Lymphocytes/100 WBC (Bld) 31.4 % Normal 20.5-60.0 [facility] Comment on above: Performed By: #### C BC #### [facility] [address] [place] [address] Dr. Marianela Villa MANUAL DIFF REQ NO Normal [facility] Comment on above: Performed By: #### C BC #### [facility] [address] [place] [address] Dr. Marianela Villa MCH (RBC) [Entitic mass] 26.6 pg Critically low 26.7-34.0 [facility] Comment on above: Performed By: #### C BC #### [facility] [address] [place] [address] Dr. Marianela Villa MCHC (RBC) [Mass/Vol] 31.6 g/dL Normal 29.9-35.2 [facility] Comment on above: Performed By: #### C BC #### [facility] [address] [place] [address] Dr. Marianela Villa MCV (RBC) [Entitic vol] 84.1 fL Normal 81.0-99.0 [facility] Comment on above: Performed By: #### C BC #### [facility] [address] [place] [address] Dr. Marianela Villa MONO # 0.4 103/ul Normal 0.3-0.8 [facility] Comment on above: Performed By: #### C BC #### [facility] [address] [place] [address] Dr. Marianela Villa Monocytes/100 WBC (Bld) 7.6 % Normal 1.7-12.0 [facility] Comment on above: Performed By: #### C BC #### [facility] [address] [place] [address] Dr. Marianela Villa NEUT # 3.3 103/ul Normal 1.4-6.5 [facility] Comment on above: Performed By: #### C BC #### [facility] [address] [place] [address] Dr. Marianela Villa Neutrophils/100 WBC (Bld) 59.0 % Normal 43.0-75.0 [facility] Comment on above: Performed By: #### C BC #### [facility] [address] [place] [address] Dr. Marianela Villa Platelet mean volume (Bld) [Entitic vol] 11.2 fL Normal 9.5-13.5 [facility] Comment on above: Performed By: #### C BC #### [facility] [address] [place] [address] Dr. Marianela Villa PLT 297 103/ul Normal 150-450 [facility] Comment on above: Performed By: #### C BC #### [facility] [address] [place] [address] Dr. Marianela Villa RBC 4.33 106/ul Normal 4.20-5.40 [facility] Comment on above: Performed By: #### C BC #### [facility] [address] [place] [address] Dr. Marianela Villa WBC 5.5 103/ul Normal 4.0-11.0 [facility] Comment on above: Performed By: #### C BC #### [facility] [address] [place] [address] Dr. Marianela Villa CBC AUTO DIFFon 02-18-2022 BASO # 0.0 103/ul Normal 0.0-0.1 [facility] Comment on above: Performed By: #### P REG #### [facility] [address] [place] [address] Dr. Marianela Villa Basophils/100 WBC (Bld) 0.3 % Normal 0.2-2.0 [facility] Comment on above: Performed By: #### P REG #### [facility] [address] [place] [address] Dr. Marianela Villa EO # 0.1 103/ul Normal 0.0-0.7 [facility] Comment on above: Performed By: #### P REG #### [facility] [address] [place] [address] Dr. Marianela Villa Eosinophils/100 WBC (Bld) 1.0 % Normal 0.9-7.0 [facility] Comment on above: Performed By: #### P REG #### [facility] [address] [place] [address] Dr. Marianela Villa Erythrocyte distribution width (RBC) [Ratio] 25.0 % Critically high 11.0-15.0 [facility] Comment on above: Performed By: #### P REG #### [facility] [address] [place] [address] Dr. Marianela Villa Hematocrit (Bld) [Volume fraction] 34.9 % Critically low 36.0-48.0 [facility] Comment on above: Performed By: #### P REG #### [facility] [address] [place] [address] Dr. Marianela Villa Hemoglobin (Bld) [Mass/Vol] 10.6 g/dL Critically low 12.0-16.0 [facility] Comment on above: Performed By: #### P REG #### [facility] [address] [place] [address] Dr. Marianela Villa IG # 0.02 10e3/ul Normal 0.00-0.03 [facility] Comment on above: Performed By: #### P REG #### [facility] [address] [place] [address] Dr. Marianela Villa IG % 0.3 % Normal 0.0-0.5 [facility] Comment on above: Performed By: #### P REG #### [facility] [address] [place] [address] Dr. Marianela Villa LYMPH # 1.8 103/ul Normal 1.2-3.8 [facility] Comment on above: Performed By: #### P REG #### [facility] [address] [place] [address] Dr. Marianela Villa Lymphocytes/100 WBC (Bld) 26.0 % Normal 20.5-60.0 [facility] Comment on above: Performed By: #### P REG #### [facility] [address] [place] [address] Dr. Marianela Villa MANUAL DIFF REQ NO Normal [facility] Comment on above: Performed By: #### P REG #### [facility] [address] [place] [address] Dr. Marianela Villa MCH (RBC) [Entitic mass] 24.9 pg Critically low 26.7-34.0 [facility] Comment on above: Performed By: #### P REG #### [facility] [address] [address] [address] Marianela Villa MCHC (RBC) [Mass/Vol] 30.4 g/dL Normal 29.9-35.2 [facility] Comment on above: Performed By: #### P REG #### [facility] [address] [address] [address] Marianela Villa MCV (RBC) [Entitic vol] 81.9 fL Normal 81.0-99.0 [facility] Comment on above: Performed By: #### P REG #### [facility] [address] [address] [address] Marianela Villa MONO # 0.4 103/ul Normal 0.3-0.8 [facility] Comment on above: Performed By: #### P REG #### [facility] [address] [place] [address] Dr. Marianela Villa Monocytes/100 WBC (Bld) 5.5 % Normal 1.7-12.0 [facility] Comment on above: Performed By: #### P REG #### [facility] [address] [address] [address] Marianela Villa NEUT # 4.5 103/ul Normal 1.4-6.5 [facility] Comment on above: Performed By: #### P REG #### [facility] [address] [place] [address] Dr. Marianela Villa Neutrophils/100 WBC (Bld) 66.9 % Normal 43.0-75.0 [facility] Comment on above: Performed By: #### P REG #### [facility] [address] [address] [address] Marianela Villa Platelet mean volume (Bld) [Entitic vol] 11.1 fL Normal 9.5-13.5 [facility] Comment on above: Performed By: #### P REG #### [facility] [address] [address] [address] Marianela Villa PLT 198 103/ul Normal 150-450 [facility] Comment on above: Performed By: #### P REG #### [facility] [address] [place] [address] Dr. Marianela Villa RBC 4.26 106/ul Normal 4.20-5.40 [facility] Comment on above: Performed By: #### P REG #### [facility] [address] [place] [address] Dr. Marianela Villa WBC 6.8 103/ul Normal 4.0-11.0 [facility] Comment on above: Performed By: #### P REG #### [facility] [address] [place] [address] Dr. Marianela Villa IRONon 02-18-2022 Iron [Mass/Vol] 57.0 ug/dL Normal 50.0-170.0 [facility] Comment on above: Performed By: #### C DANY, BUN #### [facility] [address] [place] [address] Dr. Marianela Vilal OCC BLD IMMUNO SCREENon OCCULT BLOOD Negative Normal NEGATIVE [facility] Comment on above: Performed By: #### O BSCRN #### [facility] [address] [place] [address] Dr. Marianela Villa Physician Referralon 022 Physician Referral [id number]#[id number]:127 Normal [facility] CBC AUTO DIFFon 02-02-2022 BASO # 0.0 103/ul Normal 0.0-0.1 [facility] Comment on above: Performed By: #### C BC #### [facility] [address] [place] [address] Dr. Marianela Villa Basophils/100 WBC (Bld) 0.4 % Normal 0.2-2.0 [facility] Comment on above: Performed By: #### C BC #### [facility] [address] [place] [address] Dr. Marianela Villa EO # 0.1 103/ul Normal 0.0-0.7 [facility] Comment on above: Performed By: #### C BC #### [facility] [address] [place] [address] Dr. Marianela Villa Eosinophils/100 WBC (Bld) 1.3 % Normal 0.9-7.0 [facility] Comment on above: Performed By: #### C BC #### [facility] [address] [place] [address] Dr. Marianela Villa Erythrocyte distribution width (RBC) [Ratio] 17.7 % Critically high 11.0-15.0 [facility] Comment on above: Performed By: #### C BC #### [facility] [address] [place] [address] Dr. Marianela Villa Hematocrit (Bld) [Volume fraction] 30.3 % Critically low 36.0-48.0 [facility] Comment on above: Performed By: #### C BC #### [facility] [address] [place] [address] Dr. Marianela Villa Hemoglobin (Bld) [Mass/Vol] 9.1 g/dL Critically low 12.0-16.0 [facility] Comment on above: Performed By: #### C BC #### [facility] [address] [place] [address] Dr. Marianela Villa IG # 0.01 10e3/ul Normal 0.00-0.03 [facility] Comment on above: Performed By: #### C BC #### [facility] [address] [place] [address] Dr. Marianela Villa IG % 0.1 % Normal 0.0-0.5 [facility] Comment on above: Performed By: #### C BC #### [facility] [address] [place] [address] Dr. Marianela Villa LYMPH # 1.9 103/ul Normal 1.2-3.8 [facility] Comment on above: Performed By: #### C BC #### [facility] [address] [place] [address] Dr. Marianela Villa Lymphocytes/100 WBC (Bld) 28.6 % Normal 20.5-60.0 [facility] Comment on above: Performed By: #### C BC #### [facility] [address] [place] [address] Dr. Marianela Villa MANUAL DIFF REQ NO Normal [facility] Comment on above: Performed By: #### C BC #### [facility] [address] [place] [address] Dr. Marianela Villa MCH (RBC) [Entitic mass] 23.3 pg Critically low 26.7-34.0 [facility] Comment on above: Performed By: #### C BC #### [facility] [address] [place] [address] Dr. Marianela Villa MCHC (RBC) [Mass/Vol] 30.0 g/dL Normal 29.9-35.2 [facility] Comment on above: Performed By: #### C BC #### [facility] [address] [place] [address] Dr. Marianela Villa MCV (RBC) [Entitic vol] 77.5 fL Critically low 81.0-99.0 [facility] Comment on above: Performed By: #### C BC #### [facility] [address] [place] [address] Dr. Marianela Villa MONO # 0.5 103/ul Normal 0.3-0.8 [facility] Comment on above: Performed By: #### C BC #### [facility] [address] [place] [address] Dr. Marianela Villa Monocytes/100 WBC (Bld) 6.7 % Normal 1.7-12.0 [facility] Comment on above: Performed By: #### C BC #### [facility] [address] [place] [address] Dr. Marianela Villa NEUT # 4.2 103/ul Normal 1.4-6.5 [facility] Comment on above: Performed By: #### C BC #### [facility] [address] [place] [address] Dr. Marianela Villa Neutrophils/100 WBC (Bld) 62.9 % Normal 43.0-75.0 [facility] Comment on above: Performed By: #### C BC #### [facility] [address] [place] [address] Dr. Marianela Villa Platelet mean volume (Bld) [Entitic vol] 11.0 fL Normal 9.5-13.5 [facility] Comment on above: Performed By: #### C BC #### [facility] [address] [place] [address] Dr. Marianela Villa PLT 284 103/ul Normal 150-450 [facility] Comment on above: Performed By: #### C BC #### [facility] [address] [place] [address] Dr. Marianela Villa RBC 3.91 106/ul Critically low 4.20-5.40 [facility] Comment on above: Performed By: #### C BC #### [facility] [address] [place] [address] Dr. Marianela Villa WBC 6.7 103/ul Normal 4.0-11.0 [facility] Comment on above: Performed By: #### C BC #### [facility] [address] [place] [address] Dr. Marianela Villa CRPon 02-02-2022 CRP [Mass/Vol] mg/L Normal <=1.0 [facility] Comment on above: Performed By: #### C DANY BUN #### [facility] [address] [place] [address] Dr. Marianela Villa FREE T3on 02-02-2022 FREE T3 2.06 pg/mlL Critically low 2.18-3.98 [facility] Comment on above: Performed By: #### C DANY BUN #### [facility] [address] [place] [address] Dr. Marianela Villa FREE T4on 02-02-2022 Free T4 [Mass/Vol] 0.89 ng/dL Normal 0.76-1.46 [facility] Comment on above: Performed By: #### P REG #### [facility] [address] [place] [address] Dr. Marianela Villa GLYCOHEMOGLOBIN A1Con 2021 ADA RECOMMENDATION SEE BELOW Normal [facility] Comment on above: Result Comment: ADA RECOMMENDED LIMIT 4.0 - 6.0 ADA THERAPEUTIC TARGET < 7.0 ACTION SUGGESTED > 7.0 Performed By: #### C DANY, BUN #### [facility] [address] [address] [address] Marianela Villa Glucose [Mass/Vol] 131 mg/dL Normal [facility] Comment on above: Performed By: #### C DANY, BUN #### [facility] [address] [address] [address] Marianela Villa HbA1c (Bld) [Mass fraction] 6.2 % Normal 4.5-6.2 [facility] Comment on above: Performed By: #### C DANY, BUN #### [facility] [address] [place] [address] Dr. Marianela Villa IRONon 02-02-2022 Iron [Mass/Vol] 15.0 ug/dL Critically low 50.0-170.0 [facility] Comment on above: Performed By: #### P REG #### [facility] [address] [place] [address] Dr. Marianela Villa LIPID PROFILEon 02-02-2022 CHOL-HDL RATIO NORM SEE BELOW Normal [facility] Comment on above: Result Comment: 3.3 - 4.4 LOW RISK 4.4 - 7.1 AVERAGE RISK 7.1 - 11.0 MODERATE RISK >11.0 HIGH RISK Performed By: #### C DANY, BUN #### [facility] [address] [place] [address] Dr. Marianela Villa Cholesterol [Mass/Vol] 187 mg/dL Normal <=200 [facility] Comment on above: Performed By: #### C DANY, BUN #### [facility] [address] [place] [address] Dr. Marianela Villa Cholesterol in HDL [Mass/Vol] 56 mg/dL Normal 40-60 [facility] Comment on above: Performed By: #### C DANY, BUN #### [facility] [address] [place] [address] Dr. Marianela Villa Cholesterol in LDL [Mass/Vol] 114.6 mg/dL Normal [facility] Comment on above: Performed By: #### C DANY, BUN #### [facility] [address] [address] [address] Marianela Villa Cholesterol.total/ Cholesterol in HDL [Mass ratio] 3.3 {ratio} Normal [facility] Comment on above: Performed By: #### C DANY, BUN #### [facility] [address] [address] [address] Marianela Villa HDL NORMAL > or = 60 mg/dl - LO W CARDIOVASCULAR RISK <40 mg/dl - HIGH CARDIOVASCULAR RISK Normal [facility] Comment on above: Performed By: #### C DANY BUN #### [facility] [address] [place] [address] Dr. Marianela Villa LDL CALC NORMAL SEE BELOW Normal [facility] Comment on above: Result Comment: <100 mg/dl OPTIMAL 100 - 129 mg/dl NEAR OR ABOVE OPTIMAL 130 - 159 mg/dl BORDERLINE HIGH 160 - 189 mg/dl HIGH >190 mg/dl VERY HIGH Performed By: #### C DANY BUN #### [facility] [address] [place] [address] Dr. Marianela Villa Triglyceride [Mass/Vol] 82 mg/dL Normal <=150 [facility] Comment on above: Performed By: #### C DANY BUN #### [facility] [address] [place] [address] Dr. Marianela Villa VLDL CALC 16.4 mg/dL Normal [facility] Comment on above: Performed By: #### Santos SAENZ BUN #### [facility] [address] [place] [address] Dr. Marianela Villa MAGNESIUMon 02-02-2022 Magnesium [Mass/Vol] 2.0 mg/dL Normal 1.8-2.4 [facility] Comment on above: Performed By: #### C DANY BUN #### [facility] [address] [place] [address] Dr. Marianela Villa PREG HCG QUALon 02-02-2022 , QUAL Negative Normal NEGATIVE [facility] Comment on above: Performed By: #### P REG #### [facility] [address] [place] [address] Dr. Marianela Villa PROF 14(COMP METB)on 022 Albumin [Mass/Vol] 4.0 g/dL Normal 3.4-5.0 [facility] Comment on above: Performed By: #### C DANY, BUN #### [facility] [address] [address] [address] Marianela Villa Albumin/Globulin [Mass ratio] 1.0 {ratio} Normal [facility] Comment on above: Performed By: #### C DANY, BUN #### [facility] [address] [address] [address] Marianela Villa ALP [Catalytic activity/Vol] 173 U/L Critically high 46-116 [facility] Comment on above: Performed By: #### C DANY, BUN #### [facility] [address] [place] [address] Dr. Marianela Villa ALT [Catalytic activity/Vol] 45 U/L Normal 14-59 [facility] Comment on above: Performed By: #### C DANY, BUN #### [facility] [address] [address] [address] Marianela Villa Anion gap [Moles/Vol] 12.9 mmol/L Normal [facility] Comment on above: Performed By: #### Santos SAENZ, BUN #### [facility] [address] [address] [address] Marianela Villa AST [Catalytic activity/Vol] 35 U/L Normal 15-37 [facility] Comment on above: Performed By: #### C DANY, BUN #### [facility] [address] [place] [address] Dr. Marianela Villa Bilirubin [Mass/Vol] 0.3 mg/dL Normal 0.2-1.0 [facility] Comment on above: Performed By: #### C DANY, BUN #### [facility] [address] [place] [address] Dr. Marianela Villa Calcium [Mass/Vol] 9.1 mg/dL Normal 8.5-10.1 [facility] Comment on above: Performed By: #### C DANY, BUN #### [facility] [address] [address] [address] Marianela Villa Chloride [Moles/Vol] 103 mmol/L Normal 98-107 [facility] Comment on above: Performed By: #### C DANY, BUN #### [facility] [address] [address] [address] Marianela Villa CO2 [Moles/Vol] 27.0 mmol/L Normal 21.0-32.0 [facility] Comment on above: Performed By: #### C DANY, BUN #### [facility] [address] [address] [address] Marianela Villa Creatinine [Mass/Vol] 0.70 mg/dL Normal 0.55-1.02 [facility] Comment on above: Performed By: #### C DANY, BUN #### [facility] [address] [place] [address] Dr. Marianela Villa EGFR-AF TAJIK >60 Normal >=60 [facility] Comment on above: Performed By: #### C DANY, BUN #### [facility] [address] [place] [address] Dr. Marianela Villa EGFR-NON AF TAJIK >60 Normal >=60 [facility] Comment on above: Performed By: #### C DANY, BUN #### [facility] [address] [address] [address] Marianela Villa Globulin (S) [Mass/Vol] 3.9 g/dL Normal [facility] Comment on above: Performed By: #### C DANY, BUN #### [facility] [address] [address] [address] Marianela Villa Glucose [Mass/Vol] 88 mg/dL Normal 74-106 [facility] Comment on above: Performed By: #### C DANY, BUN #### [facility] [address] [place] [address] Dr. Marianela Villa Potassium [Moles/Vol] 3.9 mmol/L Normal 3.5-5.1 [facility] Comment on above: Performed By: #### C DANY, BUN #### [facility] [address] [address] [address] Marianela Villa Protein [Mass/Vol] 7.9 g/dL Normal 6.4-8.2 [facility] Comment on above: Performed By: #### C DANY, BUN #### [facility] [address] [address] [address] Marianela Villa Sodium [Moles/Vol] 139 mmol/L Normal 136-145 [facility] Comment on above: Performed By: #### C DANY, BUN #### [facility] [address] [place] [address] Dr. Marianela Villa Urea nitrogen [Mass/Vol] 6.0 mg/dL Critically low 7.0-18.0 [facility] Comment on above: Performed By: #### C DANY, BUN #### [facility] [address] [place] [address] Dr. Marianela Villa Urea nitrogen/Creatinin e [Mass ratio] 8.6 mg/mg Normal [facility] Comment on above: Performed By: #### C DANY, BUN #### [facility] [address] [place] [address] Dr. Marianela Villa [facility] 49 mm/hr Critically high <=20 [facility] Comment on above: Performed By: #### C BC #### [facility] [address] [place] [address] Dr. Marianela Villa TSHon 02-02-2022 TSH 1.378 uIU/mL Normal 0.358-3.740 [facility] Comment on above: Performed By: #### C DANY, BUN #### [facility] [address] [place] [address] Dr. Marianela Villa UA RANDOM W/MICROSCOPICon BACTERIA NONE SEEN Normal NONE SEEN [facility] Comment on above: Performed By: #### P REG #### [facility] [address] [place] [address] Dr. Marianela Villa Bilirubin Ql (U) Negative Normal NEGATIVE [facility] Comment on above: Performed By: #### P REG #### [facility] [address] [place] [address] Dr. Marianela Villa CAST NONE SEEN Normal NONE SEEN [facility] Comment on above: Performed By: #### P REG #### [facility] [address] [place] [address] Dr. Marianela Villa Clarity (U) CLEAR Normal CLEAR [facility] Comment on above: Performed By: #### P REG #### [facility] [address] [place] [address] Dr. Marianela Villa Color (U) LT. YELLOW Normal YELLOW [facility] Comment on above: Performed By: #### P REG #### [facility] [address] [place] [address] Dr. Marianela Villa Crystals LM Nom (Urine sed) NONE SEEN Normal NONE SEEN [facility] Comment on above: Performed By: #### P REG #### [facility] [address] [place] [address] Dr. Marianela Villa Epithelial cells LM Ql (Urine sed) FEW Abnormal NONE SEEN /RARE [facility] Comment on above: Performed By: #### P REG #### [facility] [address] [place] [address] Dr. Marianela Villa Glucose Ql (U) Negative Normal NEGATIVE [facility] Comment on above: Performed By: #### P REG #### [facility] [address] [place] [address] Dr. Marianela Villa Hemoglobin Ql (U) Negative Normal NEGATIVE [facility] Comment on above: Performed By: #### P REG #### [facility] [address] [place] [address] Dr. Marianela Villa Ketones Ql (U) Negative Normal NEGATIVE [facility] Comment on above: Performed By: #### P REG #### [facility] [address] [place] [address] Dr. Marianela Villa LEUKOCYTES Negative Normal NEGATIVE [facility] Comment on above: Performed By: #### P REG #### [facility] [address] [place] [address] Dr. Marianela Villa MUCOUS NONE SEEN Normal NONE SEEN [facility] Comment on above: Performed By: #### P REG #### [facility] [address] [place] [address] Dr. Marianela Villa Nitrite Ql (U) Negative Normal NEGATIVE [facility] Comment on above: Performed By: #### P REG #### [facility] [address] [place] [address] Dr. Marianela Villa pH (U) 6.5 [pH] Normal 5-9 [facility] Comment on above: Performed By: #### P REG #### [facility] [address] [place] [address] Dr. Marianela Villa RBC NONE SEEN Abnormal 0-2 [facility] Comment on above: Performed By: #### P REG #### [facility] [address] [place] [address] Dr. Marianela Villa SPEC GRAVITY <=1.005 Abnormal 1.005-<=1.0 25 [facility] Comment on above: Performed By: #### P REG #### [facility] [address] [place] [address] Dr. Marianela Villa UA PROTEIN Negative Normal NEGATIVE/ TRACE [facility] Comment on above: Performed By: #### P REG #### [facility] [address] [place] [address] Dr. Marianela Villa Urobilinogen Qn (U) 0.2 {Trish'U}/dL Normal 0.2 - 1.0 [facility] Comment on above: Performed By: #### P REG #### [facility] [address] [place] [address] Dr. Marianela Villa WBC NONE SEEN Normal NONE SEEN [facility] Comment on above: Performed By: #### P REG #### [facility] [address] [place] [address] Dr. Marianela Villa VITAMIN B12on 02-02-2022 Cobalamin (Vitamin B12) [Mass/Vol] 630.0 pg/mL Normal 193.0-986.0 [facility] Comment on above: Performed By: #### P REG #### [facility] [address] [place], [place] [address] Dr. Marianela Villa VITAMIN D 25 OHon 02-02-2022 VIT D 25-OH 42.7 ng/mL Normal [facility] Comment on above: Performed By: #### P REG #### [facility] [address] [place], [place] [address] Dr. Marianela Villa VIT D RANGES SEE BELOW Normal [facility] Comment on above: Result Comment: <20 ng/mL Vit D deficient 20 - <30 ng/mL Vit D insufficient 30 - 100 ng/mL Vit D sufficient >100 ng/mL Potential Toxicity Performed By: #### P REG #### [facility] [address] [place], [place] [address] Dr. Marianela Villa [facility] Reporton 01-02-2018 Report Normal [facility] Comment on above: Performed By: #### D NASTUDY #### Performed at [facility], [address] [place] [id number] Vital Signs Date Time Vital Sign Value Performing Clinician Linda blake 03-05-2022 13:19-0500 Blood Pressure Location [facility] 03-05-2022 13:19-0500 Diastolic blood pressure 76 mm[Hg] [employer] [facility] [place] 03-05-2022 13:19-0500 Heart rate 70 /min [employer] [facility] [place] 03-05-2022 13:19-0500 Respiratory rate 16 /min [employer] [facility] [place] 03-05-2022 13:19-0500 Systolic blood pressure 120 mm[Hg] [facility] [place] Encounters Encounter Date Encounter Type Care Provider Facility Start: 11-07-2023 End: 11-07-2023 ambulatory DYLAN RENZO Not Available Start: 10-03-2023 End: 10-03-2023 ambulatory DYLAN RENZO Not Available Start: 09-29-2023 End: 09-29-2023 ambulatory LINDACrispin REDMOND Not Available Start: 08-31-2023 End: 08-31-2023 ambulatory LINDA REDMOND Not Available Start: 07-19-2022 Encounter for preprocedural laboratory examination DR DYLAN RAJAN . [facility] Start: 07-16-2022 End: 07-17-2022 ambulatory YANG REDMOND Facility:[facility] Start: 07-13-2022 End: 07-14-2022 ambulatory YANG REDMOND Facility:[facility] Start: 07-13-2022 End: 07-14-2022 Encounter for preprocedural laboratory examination YANG REDMOND Facility:[facility] Start: 07-09-2022 Encounter for preprocedural cardiovascular examination DR DYLAN RAJAN . [facility] Start: 07-09-2022 Encounter for preprocedural laboratory examination DR DYLAN RAJAN . [facility] Start: 07-01-2022 End: 07-02-[address] DYLAN RAJAN . Facility:[facility] Start: 07-01-2022 End: 07-02-2022 Encounter for preprocedural cardiovascular examination DR DYLAN RAJAN . Facility:[facility] Start: 05-05-2022 End: 05-06-2022 ambulatory YANG REDMOND Facility:[facility] Start: 04-26-2022 End: 04-26-2022 ambulatory YANG REDMOND Facility:[facility] Start: 04-16-2022 End: 04-17-2022 ambulatory YANG REDMOND Facility:[facility] Start: 04-14-2022 End: 04-15-2022 [facility]ulatory [facility] Start: 04-14-2022 End: 04-14-2022 Patient encounter procedure Halley BARBOSA [facility] Start: 04-07-2022 End: 04-08-2022 ambulatory Halley BARBOSA Facility:CD:[id number] Start: 03-31-2022 End: 04-01-[address] HALLEY BARBOSA . Facility:[facility] Start: 03-11-2022 End: 03-11-2022 ambulatory YANG CONDEA EDILMAREI Facility:[facility] Start: 03-05-2022 End: 03-06-2022 ambulatory Halley R NILL Facility:[facility] Start: 03-05-2022 End: 03-05-2022 Patient encounter procedure Halley R NILL [facility]/Richie Bruno Start: 03-01-2022 End: 03-02-2022 ambulatory [employer] LINDA REDMOND Facility:[facility] Start: 02-18-2022 End: 02-19-2022 ambulatory [employer] LINDA REDMOND Facility:[facility] Start: 02-04-2022 End: 02-04-2022 ambulatory [employer] LINDA REDMOND Facility:[facility] Start: 02-03-2022 ambulatory Halley NILL Facility:[facility] Start: 02-02-2022 End: 02-03-2022 ambulatory YANG REDMOND Facility:[facility] Start: 01-02-2018 Patient encounter procedure NO PCP [facility] Procedures Date Procedure Procedure Detail Performing Clinician Start: 04-07-2022 Colonoscopy Halley NI LL Start: 04-07-2022 Esophagogastroduodenoscopy Halley BARBOSA Start: 04-04-2008 section Tara tu NILL Start: 04-04-2007 section Tara l NILL Extraction of wisdom tooth M ichael NILL Immunizations Immunization Date Immunization Notes Care Provider Fa cility 08-16-2020 SARS-CoV-2 (COVID-19 ) mRNA-1273 vaccine Halely NILL [facility] Comment on above: Result Comment: 2021: TPVALL 07-19-2020 SARS-CoV-2 (COVID-19 ) mRNA-1273 vaccine Halley NILL [facility] Comment on above: Result Comment: 2021: TPVALL NEGATED: Highlighted row has not occurred!03-05-2022 influenza virus vaccine, unspecified formulation Halley BENITA [facility] [place] Payers Date Payer Category Payer Unknown [id number] 2.16.8 [id number] 1983 Unknown [id number] 2.16.8 [id number] 1983 Unknown [id number] 2.16.8 [id number] 1983 Unknown [id number] 2.16.84 0.1.434123.3.579.2.593 1983 Unknown [id number] 2.16.84 0.1.622756.3.579.2.593 1983 Unknown [id number] 2.16.84 0.1.256115.3.579.2.593 1983 Unknown [id number] 2.16.84 0.1.843480.3.579.2.593 1983 Unknown [id number] 2.16.84 0.1.479710.3.579.2.593 1983 Unknown [id number] 2.16.84 0.1.137141.3.579.2.593 1983 Unknown [id number] 2.16.84 0.1.502650.3.579.2.593 1983 Unknown [id number] 2.16.84 0.1.350291.3.579.2.593 1983 Unknown [id number] 2.16.84 0.1.840566.3.579.2.593 1983 Unknown [id number] 2.16.84 0.1.583165.3.579.2.593 1983 Unknown [id number] 2.16.84 0.1.527861.3.579.2.593 1983 Unknown [id number] 2.16.84 0.1.622417.3.579.2.593 1983 Unknown [id number] 2.16.84 0.1.999690.3.579.2.593 1983 Unknown [id number] 2.16.84 0.1.630506.3.579.2.9 1983 Unknown [id number] 2.16.84 0.1.579111.3.579.2.9 1983 Unknown [id number] 2.16.84 0.1.324289.3.579.2.1258 1983 Unknown [id number] 2.16.84 0.1.082766.3.579.2.1259 1959 Private Health Insurance [id number] Social History Date Type Detail Facility Start: 03-05-2022 Tobacco smoking status Never s moked tobacco (finding) [facility] [place] Tobacco smoking status Never [facility] [place] Sex Assigned At Female [facility] Functional Status Date Assessment Result Facility 03-05-2022 Functional Status N/A [facility] Clinical Note 07-16-2022 Note Date & Type Note Facility 07-16-2022 Note OP Note OPERATION DATE: 07/16/2022 ADDENDUM: Please note that a left ovarian cystectomy was performed using the LigaSure apparatus. [facility] Clinical Note 07-16-2022 Note Date & Type Note Facility 07-16-2022 Note OPERATIVE NOTE OPERATION DATE: 07/26/2022 PROCEDURE: Robotic assisted laparoscopic hysterectomy with right salpingectomy, left cystectomy of endometrioma and cystoscopy. PREOPERATIVE DIAGNOSIS: Menorrhagia, dysmenorrhea, pelvic pain, dyspareunia. POSTOPERATIVE DIAGNOSIS: Menorrhagia, dysmenorrhea, pelvic pain, dyspareunia including a left ovarian endometrioma. ANESTHESIA: General. SURGEON: Dylna Rajan D.O. STORE CLERK CASHIER: PJ Quevedo URINE OUTPUT: Yellow and clear. [...] Anesthesia first. Patient tolerated procedure well. [facility] Clinical Note 04-07-2022 Note Date & Type [...] pathology results. CC: Linda Redmond, YANG [facility] Clinical Note 03-05-2022 Note Date & Type [...] vaccine 07/19/2020 Recorded 2022-03-03: TPVALL [facility] Comment on above: Result Comment: Elec tronically Signed By: BENITA GUTIERREZ, Halley Smith\Date and Time Signed: 03/05/22 13:57 EST Evaluation + Plan note Note Date & Type Note Facility Evaluation + Plan note No data available for this section General [facility] [facility] Discharge instructions Note Date & Type Note Facility Hospital Discharge instructions No data available for this section General Surgery [place] Progress note Note Date & Type Note Facility Progress note No data available for this section General Surgery [place] Summary Purpose Family History No Family History Records FoundNo Family History Records FoundNo Family History Records FoundNo Family History Records Found Advance Directives No Advanced Directives Records FoundNo Advanced Directives Records FoundNo Advanced Directives Records FoundNo Advanced Directives Records Found Additional Source Comments INFORMATION SOURCE (unrecogn ized section and content) DATE CREATED AUTHOR 05/16/2018 [facility] DATE CREATED AUTHOR AUTHOR'S ORGANIZ ATION 04/17/2022 [facility] DATE CREATED AUTHOR AUTHOR'S ORGANIZ ATION 08/03/2022 [facility] DATE CREATED AUTHOR AUTHOR'S ORGANIZ ATION 11/09/2023 [facility] EPIC Patient Care team informatio n (unrecognized section and content) Personnel Name: LINDA REDMOND CNP Address: Address: [address] [place] [address] Personnel Name: IVANAlexLINDA MINAYA CNP Address: Address: [address] [place] [address] FOR RECORDS PERTAINING TO PATIENTS WHO ARE [...] BE BASED ON THE PRIMARY CLINICAL RECORDS. [facility]. provides no warranty or guarantee of the accuracy or completeness of information in this document.
[2023-11-25 08:32] LABS: Basophils Percent Auto 0.5 % (0.2-2.0); Eosinophils Absolute Auto 0.2 10^3/uL (0.0-0.7); Eosinophils Percent Auto 1.8 % (0.9-7.0); Hematocrit 42.2 % (36.0-48.0); Hemoglobin 14.3 g/dL (12.0-16.0); Immature Granulocytes Abs Auto 0.03 10^3/uL (0.00-0.03); Immature Granulocytes Pct Auto 0.4 % (0.0-0.5); Lymphocytes Absolute Auto 2.2 10^3/uL (1.2-3.8); Lymphocytes Percent Auto 26.4 % (20.5-60.0); Mean Corpuscular HGB Conc 33.9 g/dL (29.9-35.2); Mean Corpuscular Hemoglobin 31.6 pg (26.7-34.0); Mean Corpuscular Volume 93.2 fL (81.0-99.0); Mean Platelet Volume 10.5 fL (9.5-13.5); Monocytes Absolute Auto 0.5 10^3/uL (0.3-0.8); Monocytes Percent Auto 6.3 % (1.7-12.0); Neutrophils Absolute Auto 5.4 10^3/uL (1.4-6.5); Neutrophils Percent Auto 64.6 % (43.0-75.0); Platelet Count 233 10^3/uL (150-450); Red Blood Count 4.53 10^6/uL (4.20-5.40); Red Cell Distribution Width 13.2 % (11.0-15.0); White Blood Count 8.4 10^3/uL (4.0-11.0)
[2023-11-25] MEDS: LACTATED RINGER'S SOLUTION 1,000 ML 50 ML IV ×2 (08:53→10:44)
--- NOTE | 2023-11-25 12:55 | PM.ONB ---
Brief Operative Note Date of procedure: 11/25/23 Pre-op diagnosis general: pelvic pain, rt adnexal mass Post-op diagnosis: other (lt endometrioma) Procedure: NAME OF PROCEDURE: robotic assisted lt ovarian cystectomy PROCEDURE: The patient was taken back to the Operating Room where she was given general anesthesia without difficulty. She was then prepped and draped in the normal sterile fashion after being placed in a dorsal lithotomy position. A wet sponge stick was placed into the patient's vagina. Attention was then turned to the patient's abdomen, where a scalpel was used to make a small infraumbilical incision. The S retractors were then used to dissect the underlying layers until the fascia could be seen. The fascia was then grasped with Melida clamps and tented up. A knife was then used to make a small incision to the fascia. The muscle was identified, at that time two sutures of #0 Vicryl on a GI needle was then used and placed through the fascia. the peritoneum was then identified and entered bluntly. The 10-4 Mak was then placed into the patient's abdomen. This was confirmed with direct visualization of the bowel, using the laparoscope. The patient's abdomen was then insufflated using approximately 4 liters of CO2 gas. Survey of the patient's abdomen demonstrated absent tubes and uterus, normal appearing rt ovary, large lt ovarian endometrioma. A second and third rt and lt lateral robotic ports which were 8 mm in size, was then placed after the skin incision was made under direct visualization . the robotic arms were engaged. The patient's lt ovary was identified with significant adhesions of ovary to pelvic side wall and bowel, lt ovarian cystectomy was performed using ligsure, and large lt endometrioma was identified, copius irrigation was used. the left ovarian cyst wall was removed. Excellent hemostasis was noted. The lateral ports were then moved under direct visualization with excellent hemostasis. All instruments were removed from the patient's abdomen. The fascia was closed using the #0 Vicryl on GI needle. The skin was closed using 4-0 Vicryl subcuticularly. All instruments were removed from the patient's vagina as well. The patient was taken out of the dorsal lithotomy position and placed in the supine position and taken to recovery in stable condition. Sponge, lap and needle counts were correct x2. Anesthesia: GETA Surgeon: Josh Rajan Seating And Mobility Technologist: Paloma Santos Estimated blood loss (mL): 20 Pathology: other (lt cyst wall) Condition: stable Disposition: PACU Urinary Catheter Management Urinary Catheter Management Urethral: Cath placed during this visit: no
[2023-11-25] MEDS: HYDROMORPHONE HCL 0.5 MG/0.5 ML SYRINGE IV (13:48)
[2023-11-25] MEDS: LACTATED RINGER'S SOLUTION 1,000 ML 150 ML IV (13:57)
[2023-11-25] MEDS: PROMETHAZINE HCL 25 MG TABLET PO (15:19)
--- NOTE | 2023-11-25 15:22 | PC.NURSE ---
1519: pt complains of nausea,pt medicated with PO PRN Phenergan.
--- NOTE | 2023-11-25 15:26 | PC.NURSE ---
1526: per pt request,prescriptions given to pts mom to be dropped off on pt's behalf.
--- NOTE | 2023-11-25 15:54 | PC.NURSE ---
1550: pt reports nausea has resolved.
[2023-11-25] MEDS: HYDROCODONE/ACET 5-325 MG TABLET 1 TAB PO (16:12)
--- NOTE | 2023-11-25 16:21 | PC.NURSE ---
1612: pt ambulates to bathroom with minimal assistance.pt voids without difficulty.
== END 2023-11-25 16:34 | disposition home or self-care (01) ==
PROVIDERS: PCP Nurse Practitioner; Visit Provider Obstetrics & Gynecology
PROC: (CPT 840; principal; 2023-11-25 09:40)
DX: R10.2 Pelvic and perineal pain (principal); N83.292 Other ovarian cyst, left side; N80.122 Deep endometriosis of left ovary; Z90.710 Acquired absence of both cervix and uterus; K21.9 Gastro-esophageal reflux disease without esophagitis; E66.01 Morbid (severe) obesity due to excess calories; Z68.41 Body mass index [BMI] 40.0-44.9, adult
CPT/HCPCS: 58662; 36415; 85025; 88305; J1100; J1170; J1885; J2250; J2405; J2704; J3010; Q0169

== ENCOUNTER 2023-12-08 10:36 | Outpatient (OUT) | payer OTHER, SELFPAY ==
--- OUTSIDE RECORDS SUMMARY | 2023-12-08 10:56 | XMS_ITS | CCD ---
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 Name Role Phone PCP, NO Primary Care Unavailable MENDEL CORADO Attending Unavailable MENDEL CORADO Referring Unavailable AICLINDA SERVIN Primary Care Physician Halley BARBOSA Attending Unavailable AICHLINDA MINAYA J Referring Unavailabl e Halley BARBOSA Attending Unavailable Halley BARBOSA Attending Unavailable Halley BARBOSA Referring Unavailable AICHHOLZ, LAUNCH STEWARD LINDA Primary Care Unavailable AICHHOLZ, LAUNCH STEWARD LINDA Admitting Unavailable AICHHOLZ, LAUNCH STEWARD LINDA Consulting Unavailable AICHHOLZ, LAUNCH STEWARD LINDA Attending Unavailable AICHHOLZ, LAUNCH STEWARD LINDA Admitting Unavailable AICHHOLZ, LAUNCH STEWARD LINDA Consulting Unavailable AICHHOLZ, LAUNCH STEWARD LINDA Attending Unavailable AICHHOLZ, LAUNCH STEWARD LINDA Primary Care Unavailable AICHHOLZ, LAUNCH STEWARD LINDA Consulting Unavailable AICHHOLZ, LAUNCH STEWARD LINDA Attending Unavailable AICHHOLZ, LAUNCH STEWARD LINDA Admitting Unavailable AICHHOLZ, LAUNCH STEWARD LINDA Primary Care Unavailable DR TODD DORANTES Consulting Unavailable KIANA CHURCH Consulting Unavailable AICHHOLZ, LAUNCH STEWARD LINDA Consulting Unavailable AICHHOLZ, LAUNCH STEWARD LINDA Attending Unavailable AICHHOLZ, LAUNCH STEWARD LINDA Admitting Unavailable AICHHOLZ, LAUNCH STEWARD LINDA Primary Care Unavailable DR TODD DORANTES Consulting Unavailable NILL ., DR ROWLEY Attending Unavailable NILL ., DR ROWLEY Admitting Unavailable AICHHOLZ, LAUNCH STEWARD LINDA Primary Care Unavailable NILL ., DR ROWLEY Consulting Unavailable MINGO WHITMAN, VLAD Consulting Unavailable ALDO ELIZABETH Consulting Unavailable JED LINK Consulting Unavailable NILL ., DR ROWLEY Admitting Unavailable NILL ., DR ROWLEY Consulting Unavailable AICHHOLZ, LAUNCH STEWARD LINDA Primary Care Unavailable NILL ., DR ROWLEY Attending Unavailable AICHHOLZ, LAUNCH STEWARD LINDA Primary Care Unavailable RENZO ., DR RICHARDSON Admitting Unavailable RENZO ., DR RICHARDSON Consulting Unavailable RENZO ., DR RICHARDSON Attending Unavailable RENZO ., DR RICHARDSON Consulting Unavailable RENZO ., DR RICHARDSON Attending Unavailable RENZO ., DR RICHARDSON Admitting Unavailable AICHHOLZ, LAUNCH STEWARD LINDA Primary Care Unavailable AICHHOLZ, LAUNCH STEWARD LINDA Primary Care Unavailable RENZO ., DR RICHARDSON Consulting Unavailable RENZO ., DR RICHARDSON Attending Unavailable RENZO ., DR RICHARDSON Admitting Unavailable ROBERT HOPKINS Consulting Unavailable ABDI GALVAN Consulting Unavailable AICHHOLZ, LAUNCH STEWARD LINDA Primary Care Unavailable AICHHOLZ, LAUNCH STEWARD LINDA Attending Unavailable AICHHOLZ, LAUNCH STEWARD LINDA Admitting Unavailable AICHHOLZ, LAUNCH STEWARD LINDA Consulting Unavailable AICHHOLZ, LAUNCH STEWARD LINDA Consulting Unavailable AICHHOLZ, LAUNCH STEWARD LINDA Attending Unavailable AICHHOLZ, LAUNCH STEWARD LINDA Admitting Unavailable AICHHOLZ, LAUNCH STEWARD LINDA Primary Care Unavailable AICHHOLZ, LAUNCH STEWARD LINDA Admitting Unavailable AICHHOLZ, LAUNCH STEWARD LINDA Primary Care Unavailable AICHHOLZ, LAUNCH STEWARD LINDA Consulting Unavailable AICHHOLZ, LAUNCH STEWARD LINDA Attending Unavailable AICHHOLZ, LAUNCH STEWARD LINDA Primary Care Unavailable AICHHOLZ, LAUNCH STEWARD LINDA Admitting Unavailable AICHHOLZ, LAUNCH STEWARD LINDA Consulting Unavailable AICHHOLZ, LAUNCH STEWARD LINDA Attending Unavailable AICHHOLZ, LINDA Attending Unavailable AICHHOLZ, LINDA Attending Unavailable DYLAN RAJAN Attending Unavailable DYLAN RAJAN Attending Unavailable Allergies Allergy Classification Reported Allergen(s) Allergy Type Date of Onset Reaction(s) Facility (3 sources) Cephalexin; Translations: [cephalexin] Drug Allergy Syncope (disorder) General Surgery [place] (2 sources) Cephalexin Drug Allergy [facility] Medications Current Medications Medication Drug [...] Onset: 04-14-2022 Other aftercare (1 source) Other retirement (current) drug therapy; Translations: [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 Marianela Villa CBC AUTO DIFFon 07-17-2022 BASO # 0.0 103/ul Normal 0.0-0.1 [facility] Comment on above: Performed By: #### Santos SAENZ BUN #### [facility] [address] [place] [address] Dr. Marianela Villa Basophils/100 WBC (Bld) 0.1 % Critically low 0.2-2.0 [facility] Comment on above: Performed By: #### Santos SAENZ, BUN #### [facility] [address] [place] [address] Dr. Marianela Villa EO # 0.0 103/ul Normal 0.0-0.7 [facility] Comment on above: Performed By: #### C DANY, BUN #### [facility] [address] [place] [address] Dr. Marianela Villa Eosinophils/100 WBC (Bld) 0.0 % Critically low 0.9-7.0 [facility] Comment on above: Performed By: #### C DANY, BUN #### [facility] [address] [place] [address] Dr. Marianela Villa Erythrocyte distribution width (RBC) [Ratio] 14.5 % Normal 11.0-15.0 [facility] Comment on above: Performed By: #### C DANY, BUN #### [facility] [address] [place] [address] Dr. Marianela Villa Hematocrit (Bld) [Volume fraction] 29.9 % Critically low 36.0-48.0 [facility] Comment on above: Performed By: #### C DANY, BUN #### [facility] [address] [place] [address] Dr. Marianela Villa Hemoglobin (Bld) [Mass/Vol] 10.0 g/dL Critically low 12.0-16.0 [facility] Comment on above: Performed By: #### C DANY, BUN #### [facility] [address] [place] [address] Dr. Marianela Villa IG # 0.04 10e3/ul Critically high 0.00-0.03 [facility] Comment on above: Performed By: #### C DANY, BUN #### [facility] [address] [place] [address] Dr. Marianela Villa IG % 0.4 % Normal 0.0-0.5 [facility] Comment on above: Performed By: #### C DANY, BUN #### [facility] [address] [place] [address] Dr. Marianela Villa LYMPH # 1.2 103/ul Normal 1.2-3.8 [facility] Comment on above: Performed By: #### C DANY, BUN #### [facility] [address] [place] [address] Dr. Marianela Villa Lymphocytes/100 WBC (Bld) 12.1 % Critically low 20.5-60.0 [facility] Comment on above: Performed By: #### C DANY, BUN #### [facility] [address] [place] [address] Dr. Marianela Villa MANUAL DIFF REQ NO Normal [facility] Comment on above: Performed By: #### C DANY, BUN #### [facility] [address] [place] [address] Dr. Marianela Villa MCH (RBC) [Entitic mass] 31.3 pg Normal 26.7-34.0 [facility] Comment on above: Performed By: #### C DANY, BUN #### [facility] [address] [place] [address] Dr. Marianela Villa MCHC (RBC) [Mass/Vol] 33.4 g/dL Normal 29.9-35.2 [facility] Comment on above: Performed By: #### C DANY, BUN #### [facility] [address] [place] [address] Dr. Marianela Villa MCV (RBC) [Entitic vol] 93.7 fL Normal 81.0-99.0 [facility] Comment on above: Performed By: #### C DANY, BUN #### [facility] [address] [place] [address] Dr. Marianela Villa MONO # 1.0 103/ul Critically high 0.3-0.8 [facility] Comment on above: Performed By: #### C DANY, BUN #### [facility] [address] [place] [address] Dr. Marianela Villa Monocytes/100 WBC (Bld) 10.2 % Normal 1.7-12.0 [facility] Comment on above: Performed By: #### C DANY, BUN #### [facility] [address] [place] [address] Dr. Marianela Villa NEUT # 7.7 103/ul Critically high 1.4-6.5 [facility] Comment on above: Performed By: #### C DANY, BUN #### [facility] [address] [place] [address] Dr. Marianela Villa Neutrophils/100 WBC (Bld) 77.2 % Critically high 43.0-75.0 [facility] Comment on above: Performed By: #### C DANY, BUN #### [facility] [address] [place] [address] Dr. Marianela Villa Platelet mean volume (Bld) [Entitic vol] 10.9 fL Normal 9.5-13.5 [facility] Comment on above: Performed By: #### C DANY, BUN #### [facility] [address] [place] [address] Dr. Marianela Villa PLT 188 103/ul Normal 150-450 [facility] Comment on above: Performed By: #### C DANY, BUN #### [facility] [address] [address] [address] Marianela Villa RBC 3.19 106/ul Critically low 4.20-5.40 [facility] Comment on above: Performed By: #### C DANY, BUN #### [facility] [address] [place] [address] Dr. Marianela Villa WBC 10.0 103/ul Normal 4.0-11.0 [facility] Comment on above: Performed By: #### C DANY, BUN #### [facility] [address] [place] [address] Dr. Marianela Villa CREATININEon 07-17-2022 Creatinine [Mass/Vol] 0.78 mg/dL Normal 0.55-1.02 [facility] Comment on above: Performed By: #### C DANY, BUN #### [facility] [address] [place] [address] Dr. Marianela Villa EGFR-AF SERBIAN >60 Normal >=[address] [facility] Comment on above: Performed By: #### C DANY, BUN #### [facility] [address] [place] [address] Dr. Marianela Villa EGFR-NON AF SERBIAN >60 Normal >=60 [facility] Comment on above: Performed By: #### C DANY, BUN #### [facility] [address] [place] [address] Dr. Marianela Villa PREG QUANT HCGon 07-16-2022 HCG QUANT <1 Normal [facility] Comment on above: Performed By: #### P REGQNT #### [facility] [address] [place] [address] Dr. Marianela Villa HCG RANGE SEE BELOW Normal [facility] Comment on above: Result Comment: 5-50 0.2-1 WEEK 50-500 1-2 WEEKS 100-5,000 2-3 WEEKS 500-10,000 3-4 WEEKS 1,000-50,000 4-5 WEEKS 10,000-100,000 5-6 WEEKS 15,000-200,000 6-8 WEEKS 10,000-100,000 2-3 MONTHS Performed By: #### P REGQNT #### [facility] [address] [place] [address] Dr. Marianela Villa TYPE AND SCREENon 07-13-2022 TYPE AND SCREEN Negative Normal [facility] Comment on above: Performed By: #### C DANY, BUN #### [facility] [address] [place] [address] Dr. Marianela Villa CBC AUTO DIFFon 07-01-2022 BASO # 0.0 103/ul Normal 0.0-0.1 [facility] Comment on above: Performed By: #### C BC #### [facility] [address] [place] [address] Dr. Marianela Villa Basophils/100 WBC (Bld) 0.3 % Normal 0.2-2.0 [facility] Comment on above: Performed By: #### C BC #### [facility] [address] [place] [address] Dr. Marianela Villa EO # 0.1 103/ul Normal 0.0-0.7 [facility] Comment on above: Performed By: #### C BC #### [facility] [address] [place] [address] Dr. Marianela Villa Eosinophils/100 WBC (Bld) 1.6 % Normal 0.9-7.0 [facility] Comment on above: Performed By: #### C BC #### [facility] [address] [place] [address] Dr. Marianela Villa Erythrocyte distribution width (RBC) [Ratio] 13.9 % Normal 11.0-15.0 [facility] Comment on above: Performed By: #### C BC #### [facility] [address] [place] [address] Dr. Marianela Villa Hematocrit (Bld) [Volume fraction] 37.9 % Normal 36.0-48.0 [facility] Comment on above: Performed By: #### C BC #### [facility] [address] [place] [address] Dr. Marianela Villa Hemoglobin (Bld) [Mass/Vol] 12.3 g/dL Normal 12.0-16.0 [facility] Comment on above: Performed By: #### C BC #### [facility] [address] [place] [address] Dr. Marianela Villa IG # 0.01 10e3/ul Normal 0.00-0.03 [facility] Comment on above: Performed By: #### C BC #### [facility] [address] [place] [address] Dr. Marianela Villa IG % 0.2 % Normal 0.0-0.5 [facility] Comment on above: Performed By: #### C BC #### [facility] [address] [place] [address] Dr. Marianela Villa LYMPH # 1.6 103/ul Normal 1.2-3.8 [facility] Comment on above: Performed By: #### C BC #### [facility] [address] [place] [address] Dr. Marianela Villa Lymphocytes/100 WBC (Bld) 24.6 % Normal 20.5-60.0 [facility] Comment on above: Performed By: #### C BC #### [facility] [address] [place] [address] Dr. Marianela Villa MANUAL DIFF REQ NO Normal [facility] Comment on above: Performed By: #### C BC #### [facility] [address] [place] [address] Dr. Marianela Villa MCH (RBC) [Entitic mass] 30.5 pg Normal 26.7-34.0 [facility] Comment on above: Performed By: #### C BC #### [facility] [address] [place] [address] Dr. Marianela Villa MCHC (RBC) [Mass/Vol] 32.5 g/dL Normal 29.9-35.2 [facility] Comment on above: Performed By: #### C BC #### [facility] [address] [place] [address] Dr. Marianela Villa MCV (RBC) [Entitic vol] 94.0 fL Normal 81.0-99.0 [facility] Comment on above: Performed By: #### C BC #### [facility] [address] [address] [address] Marianela Villa MONO # 0.5 103/ul Normal 0.3-0.8 [facility] Comment on above: Performed By: #### C BC #### [facility] [address] [address] [address] Marianela Villa Monocytes/100 WBC (Bld) 7.6 % Normal 1.7-12.0 [facility] Comment on above: Performed By: #### C BC #### [facility] [address] [place] [address] Dr. Marianela Villa NEUT # 4.2 103/ul Normal 1.4-6.5 [facility] Comment on above: Performed By: #### C BC #### [facility] [address] [place] [address] Dr. Marianela Villa Neutrophils/100 WBC (Bld) 65.7 % Normal 43.0-75.0 [facility] Comment on above: Performed By: #### C BC #### [facility] [address] [place] [address] Dr. Marianela Villa Platelet mean volume (Bld) [Entitic vol] 11.0 fL Normal 9.5-13.5 [facility] Comment on above: Performed By: #### C BC #### [facility] [address] [place] [address] Dr. Marianela Villa PLT 251 103/ul Normal 150-450 [facility] Comment on above: Performed By: #### C BC #### [facility] [address] [place] [address] Dr. Marianela Villa RBC 4.03 106/ul Critically low 4.20-5.40 [facility] Comment on above: Performed By: #### C BC #### [facility] [address] [place] [address] Dr. Marianela Villa WBC 6.4 103/ul Normal 4.0-11.0 [facility] Comment on above: Performed By: #### C BC #### [facility] [address] [address] [address] Marianela Villa LIVER PROFILEon 07-01-2022 Albumin [Mass/Vol] 3.7 g/dL Normal 3.4-5.0 [facility] Comment on above: Performed By: #### B MP, LIVER #### [facility] [address] [address] [address] Marianela Villa Albumin/Globulin [Mass ratio] 1.0 {ratio} Normal [facility] Comment on above: Performed By: #### B MP, LIVER #### [facility] [address] [place] [address] Dr. Marianela Villa ALP [Catalytic activity/Vol] 96 U/L Normal 46-116 [facility] Comment on above: Performed By: #### B MP, LIVER #### [facility] [address] [place] [address] Dr. Marianela Villa ALT [Catalytic activity/Vol] 25 U/L Normal 14-59 [facility] Comment on above: Performed By: #### B MP, LIVER #### [facility] [address] [place] [address] Dr. Marianela Villa AST [Catalytic activity/Vol] 16 U/L Normal 15-37 [facility] Comment on above: Performed By: #### B MP, LIVER #### [facility] [address] [place] [address] Dr. Marianela Villa BILI, CONJUGATED 0.0 mg/dL Normal 0.0-0.2 [facility] Comment on above: Performed By: #### B MP, LIVER #### [facility] [address] [place] [address] Dr. Marianela Villa Bilirubin [Mass/Vol] 0.2 mg/dL Normal 0.2-1.0 [facility] Comment on above: Performed By: #### B MP, LIVER #### [facility] [address] [place] [address] Dr. Marianela Villa Globulin (S) [Mass/Vol] 3.7 g/dL Normal [facility] Comment on above: Performed By: #### B MP, LIVER #### [facility] [address] [place] [address] Dr. Marianela Villa Protein [Mass/Vol] 7.4 g/dL Normal 6.4-8.2 [facility] Comment on above: Performed By: #### B MP, LIVER #### [facility] [address] [place] [address] Dr. Marianela Villa PROF CHEM 8 (BAS METB)on Anion gap [Moles/Vol] 13.2 mmol/L Normal [facility] Comment on above: Performed By: #### B MP, LIVER #### [facility] [address] [place] [address] Dr. Marianela Villa Calcium [Mass/Vol] 9.2 mg/dL Normal 8.5-10.1 [facility] Comment on above: Performed By: #### B MP, LIVER #### [facility] [address] [place] [address] Dr. Marianela Villa Chloride [Moles/Vol] 103 mmol/L Normal 98-107 [facility] Comment on above: Performed By: #### B MP, LIVER #### [facility] [address] [place] [address] Dr. Marianela Villa CO2 [Moles/Vol] 28.0 mmol/L Normal 21.0-32.0 [facility] Comment on above: Performed By: #### B MP, LIVER #### [facility] [address] [place] [address] Dr. Marianela Villa Creatinine [Mass/Vol] 0.75 mg/dL Normal 0.55-1.02 [facility] Comment on above: Performed By: #### B MP, LIVER #### [facility] [address] [place] [address] Dr. Marianela Villa EGFR-AF SERBIAN >60 Normal >=[address] [facility] Comment on above: Performed By: #### B MP, LIVER #### [facility] [address] [place] [address] Dr. Marianela Villa EGFR-NON AF SERBIAN >60 Normal >=60 [facility] Comment on above: Performed By: #### B MP, LIVER #### [facility] [address] [address] [address] Marianela Villa Glucose [Mass/Vol] 86 mg/dL Normal 74-106 [facility] Comment on above: Performed By: #### B MP, LIVER #### [facility] [address] [address] [address] Marianela Villa Potassium [Moles/Vol] 4.2 mmol/L Normal 3.5-5.1 [facility] Comment on above: Performed By: #### B MP, LIVER #### [facility] [address] [address] [address] Marianela Villa Sodium [Moles/Vol] 140 mmol/L Normal 136-145 [facility] Comment on above: Performed By: #### B MP, LIVER #### [facility] [address] [place] [address] Dr. Marianela Villa Urea nitrogen [Mass/Vol] 8.0 mg/dL Normal 7.0-18.0 [facility] Comment on above: Performed By: #### B MP, LIVER #### [facility] [address] [address] [address] Marianela Villa Urea nitrogen/Creatinin e [Mass ratio] 10.7 mg/mg Normal [facility] Comment on above: Performed By: #### B MP, LIVER #### [facility] [address] [place] [address] Dr. Marianela Villa PROTIMEon 07-01-2022 INR Coag (PPP) [Relative time] 1.00 {INR} Normal [facility] Comment on above: Performed By: #### C DANY, BUN #### [facility] [address] [place] [address] Dr. Marianela Villa INR GUIDELINES SEE BELOW Normal [facility] Comment on above: Result Comment: MCKENNA RED INR: 2.0 - 3.0 CONDITIONS NOT LISTED BELOW 2.5 - 3.5 FOR PROSTHETIC HEART VALVE REPLACEMENT 2.5 - 3.5 RECURRENT THROMBOSIS Performed By: #### C DANY, BUN #### [facility] [address] [place] [address] Dr. Marianela Villa PT Coag (PPP) [Time] 10.6 s Normal 9.0-11.6 [facility] Comment on above: Performed By: #### C DANY, BUN #### [facility] [address] [place] [address] Dr. Marianela Villa PTTon 07-01-2022 aPTT Coag (Bld) [Time] 25.0 s Normal 22.3-36.2 [facility] Comment on above: Performed By: #### C DANY BUN #### [facility] [address] [place] [address] Dr. Marianela Villa CBC AUTO DIFFon 05-05-2022 BASO # 0.0 103/ul Normal 0.0-0.1 [facility] Comment on above: Performed By: #### P REG #### [facility] [address] [place] [address] Dr. Marianela Villa Basophils/100 WBC (Bld) 0.4 % Normal 0.2-2.0 [facility] Comment on above: Performed By: #### P REG #### [facility] [address] [place] [address] Dr. Marianela Villa EO # 0.1 103/ul Normal 0.0-0.7 [facility] Comment on above: Performed By: #### P REG #### [facility] [address] [place] [address] Dr. Marianela Villa Eosinophils/100 WBC (Bld) 0.9 % Normal 0.9-7.0 [facility] Comment on above: Performed By: #### P REG #### [facility] [address] [place] [address] Dr. Marianela Villa Erythrocyte distribution width (RBC) [Ratio] 16.8 % Critically high 11.0-15.0 [facility] Comment on above: Performed By: #### P REG #### [facility] [address] [place] [address] Dr. Marianela Villa Hematocrit (Bld) [Volume fraction] 40.8 % Normal 36.0-48.0 [facility] Comment on above: Performed By: #### P REG #### [facility] [address] [place] [address] Dr. Marianela Villa Hemoglobin (Bld) [Mass/Vol] 13.0 g/dL Normal 12.0-16.0 [facility] Comment on above: Performed By: #### P REG #### [facility] [address] [place] [address] Dr. Marianela Villa IG # 0.02 10e3/ul Normal 0.00-0.03 [facility] Comment on above: Performed By: #### P REG #### [facility] [address] [place] [address] Dr. Marianela Villa IG % 0.3 % Normal 0.0-0.5 [facility] Comment on above: Performed By: #### P REG #### [facility] [address] [place] [address] Dr. Marianela Villa LYMPH # 1.6 103/ul Normal 1.2-3.8 [facility] Comment on above: Performed By: #### P REG #### [facility] [address] [place] [address] Dr. Marianela Villa Lymphocytes/100 WBC (Bld) 24.1 % Normal 20.5-60.0 [facility] Comment on above: Performed By: #### P REG #### [facility] [address] [place] [address] Dr. Marianela Villa MANUAL DIFF REQ NO Normal [facility] Comment on above: Performed By: #### P REG #### [facility] [address] [place] [address] Dr. Marianela Villa MCH (RBC) [Entitic mass] 30.3 pg Normal 26.7-34.0 [facility] Comment on above: Performed By: #### P REG #### [facility] [address] [place] [address] Dr. Marianela Villa MCHC (RBC) [Mass/Vol] 31.9 g/dL Normal 29.9-35.2 [facility] Comment on above: Performed By: #### P REG #### [facility] [address] [address] [address] Marianela Villa MCV (RBC) [Entitic vol] 95.1 fL Normal 81.0-99.0 [facility] Comment on above: Performed By: #### P REG #### [facility] [address] [address] [address] Marianela Villa MONO # 0.5 103/ul Normal 0.3-0.8 [facility] Comment on above: Performed By: #### P REG #### [facility] [address] [address] [address] Marianela Villa Monocytes/100 WBC (Bld) 7.6 % Normal 1.7-12.0 [facility] Comment on above: Performed By: #### P REG #### [facility] [address] [place] [address] Dr. Marianela Villa NEUT # 4.5 103/ul Normal 1.4-6.5 [facility] Comment on above: Performed By: #### P REG #### [facility] [address] [place] [address] Dr. Marianela Villa Neutrophils/100 WBC (Bld) 66.7 % Normal 43.0-75.0 [facility] Comment on above: Performed By: #### P REG #### [facility] [address] [address] [address] Marianela Villa Platelet mean volume (Bld) [Entitic vol] 10.0 fL Normal 9.5-13.5 [facility] Comment on above: Performed By: #### P REG #### [facility] [address] [place] [address] Dr. Marianela Villa PLT 253 103/ul Normal 150-450 [facility] Comment on above: Performed By: #### P REG #### [facility] [address] [address] [address] Marianela Villa RBC 4.29 106/ul Normal 4.20-5.40 [facility] Comment on above: Performed By: #### P REG #### [facility] [address] [address] [address] Marianela Villa WBC 6.8 103/ul Normal 4.0-11.0 [facility] Comment on above: Performed By: #### P REG #### [facility] [address] [address] [address] Marianela Villa FERRITINon 05-05-2022 Ferritin [Mass/Vol] 21.0 ng/mL Normal 6.2-137.0 [facility] Comment on above: Performed By: #### P REG #### [facility] [address] [address] [address] Marianela Villa IRONon 05-05-2022 Iron [Mass/Vol] 128.0 ug/dL Normal 50.0-170.[address] [facility] Comment on above: Performed By: #### P REG #### [facility] [address] [address] [address] Marianela Villa US VAC ASST BX BREAST RT W C LIPon 04-29-2022 US VAC ASST BX BREAST RT W CLIP Begin Addendum #1 COLLECTED DATE/TIME: 04/26/2022, 11:20 EST Final Diagnosis Report for [facility] [place] [place] RIGHT BREAST 1 O'CLOCK MASS; BIOPSY: [...] after pathology results are available. Normal [facility] MAMMO POST BIOPSY RIGHTon MAMMO POST BIOPSY RIGHT Patient: ANTONIO MOY Exam Date: 04/26/2022 : 1985 Gender:F Ordering : YANG LINDA SEAN [facility] Admission #: [id number] Family : Order #: [id number] CLICK HERE TO VIEW EXAM RADIOLOGY REPORT [...] M.D. on 04/26/2022 at 13:55 Normal [facility] MG MAMM DIAGNOSTIC 3D SERVANDO CA Don 04-16-2022 MG MAMM DIAGNOSTIC 3D SERVANDO CAD Patient: ANTONIO MOY Exam Date: 04/16/2022 : 1985 Gender:F Ordering : YANG LINDACrispin REDMNOD [facility] Admission #: [id number] Family : Order #: [id number] CLICK HERE TO VIEW EXAM RADIOLOGY REPORT [...] leukemia cancer at age 1. LOCATION: [facility] BREAST COMPOSITION: Scattered areas fibroglandular density. [...] M.D. on 04/16/2022 at 13:39 Normal [facility] US BREAST RIGHT LIMITEDon US BREAST RIGHT LIMITED Patient: ANTONIO MOY Exam Date: 04/16/2022 : 1985 Gender:F Ordering : YANG REDMOND [facility] Admission #: [id number] Family : Order #: [id number] CLICK HERE TO VIEW EXAM RADIOLOGY REPORT [...] leukemia cancer at age 1. LOCATION: [facility] BREAST COMPOSITION: Scattered areas fibroglandular density. [...] Dorantes M.D. on 04/16/2022 at 13:39 Normal [facility] US PELVIS AND TRANSVAGon US PELVIS [...] KIANA CHURCH Date: 2022-04-16 10:01 Normal [facility] General Surgery Office/Clini c Noteon 04-14-2022 [...] mRNA-1273 vaccine 07/19/2020 Recorded 2022-03-03: TPVALL Normal [facility] Comment on above: Result Comment: Elec tronically Signed By: BENITA GUTIERREZ, Halley Smith\Date and Time Signed: 04/14/22 16:29 EST Reminderson 04-14-2022 Reminders - From: Rain Alcantar LPN To: GSN - Clinical; Sent: 04/14/2022 15:37:22 EST Show up: 03/07/2032 07:00:00 EST Subject: colonoscopy recall Due Date/Time: 04/07/2032 07:00:00 EST Reminder/Recall Patient is due for screening colonoscopy 04/07/2032. Normal [facility] Outside Colonoscopyon 2022 Outside Colonoscopy [id number]#1.00CD:[address] [facility] Pathology Noteon 04-09-2022 Pathology Note [id number]#1.00CD:[address] [facility] PREG HCG QUALon 04-07-2022 , QUAL Negative Normal NEGATIVE [facility] Comment on above: Performed By: #### C BC #### [facility] [address] [address] [address] Marianela Villa Lab Reportson 04-01-2022 Lab Reports [id number]#1.00CD:[address] [facility] Covid-19 PCR (CVDTBH)on 03-05 SARS-CoV-2 (COVID-19) RNA TERA+probe Ql (Unsp spec) Not detected Normal NOT DETECTED [facility] Comment on above: Result Comment: This test is not yet approved or cleared by the [place] FDA. When there are no FDA-approved or cleared tests available, and other criteria are met, FDA can make tests available under an emergency access mechanism called an Emergency Use Authorization (EUA). The EUA for this test is supported by the [place] of Health and Human Service's (HHS's) declaration [...] SARS-CoV-2. Performed By: #### P REG #### [facility] [address] [address] [address] Marianela Villa PAP ACOG PANEL 2: 30 to 65on 03-21-2022 . . Normal [facility] Comment on above: Result Comment: Perf ormed at: WB Performed By: #### [id number] #### [facility] [address] [address] [address] Marianela Villa Age Gdln ACOG Testing 30-65 Normal [facility] Comment on above: Performed By: #### [id number] #### [facility] [address] [place] [address] Dr. Marianela Villa DIAGNOSIS: Comment Normal [facility] Comment on above: Result Comment: NEGA TIVE FOR INTRAEPITHELIAL LESION OR MALIGNANCY. Performed at: WB Performed By: #### [id number] #### [facility] [address] [place] [address] Dr. Marianela Villa HPV Aptima Negative Normal Negative [facility] Comment on above: Result Comment: This nucleic acid amplification test detects fourteen high-risk HPV types (16,18,31,33,35,39,45,51,52,56,58,59,66,68) without differentiation. Performed at: =G Performed By: #### [id number] #### [facility] [address] [place] [address] Dr. Marianela Villa HPV Genotype Reflex Comment Normal [facility] Comment on above: Result Comment: Crit eria not met, HPV Genotype not performed. Performed at: WB Performed By: #### [id number] #### [facility] [address] [place] [address] Dr. Marianela Villa Methodology: Comment Normal [facility] Comment on above: Result Comment: This liquid based ThinPrep(R) pap test was screened with the use of an image guided system. Performed at: WB Performed By: #### [id number] #### [facility] [address] [place] [address] Dr. Marianela Villa Note: Comment Normal [facility] Comment on above: Result Comment: The Pap smear is a screening test designed to aid in the detection of premalignant and malignant conditions of the uterine cervix. It is not a diagnostic procedure and should not be used as the sole means of detecting cervical cancer. Both false-positive and false-negative reports do occur. . Performed at: WB Performed By: #### [id number] #### [facility] [address] [place] [address] Dr. Marianela Villa Performed by: Comment Normal [facility] Comment on above: Result Comment: Nancy Leslie, Nurse Infection Control (ASCP) Performed at: WB Performed By: #### [id number] #### [facility] [address] [place] [address] Dr. Marianela Villa Specimen adequacy: Comment Normal [facility] Comment on above: Result Comment: Sati sfactory for evaluation. No endocervical component is identified. Performed at: WB Performed By: #### [id number] #### [facility] [address] [place] [address] Dr. Marianela Villa Pre-Certification Formon Pre-Certification Form [id number]#1.00CD:[address] [facility] Facesheeton 03-09-2022 Facesheet [id number]#1.00CD:[address] [facility] Patient Correspondenceon Patient Correspondence [id number]#[id number]:[address] [facility] Consent for Procedure/Surger yon 03-08-2022 Consent for Procedure/Surgery [id number]#1.00CD:[address] [facility] CBC AUTO DIFFon 03-01-2022 BASO # 0.0 103/ul Normal 0.0-0.1 [facility] Comment on above: Performed By: #### C BC #### [facility] [address] [place] [address] Dr. Marianela Villa Basophils/100 WBC (Bld) 0.5 % Normal 0.2-2.0 [facility] Comment on above: Performed By: #### C BC #### [facility] [address] [place] [address] Dr. Marianela Villa EO # 0.1 103/ul Normal 0.0-0.7 [facility] Comment on above: Performed By: #### C BC #### [facility] [address] [place] [address] Dr. Marianela Villa Eosinophils/100 WBC (Bld) 1.3 % Normal 0.9-7.0 [facility] Comment on above: Performed By: #### C BC #### [facility] [address] [place] [address] Dr. Marianela Villa Erythrocyte distribution width (RBC) [Ratio] 25.9 % Critically high 11.0-15.0 [facility] Comment on above: Performed By: #### C BC #### [facility] [address] [place] [address] Dr. Marianela Villa Hematocrit (Bld) [Volume fraction] 36.4 % Normal 36.0-48.0 [facility] Comment on above: Performed By: #### C BC #### [facility] [address] [place] [address] Dr. Marianela Villa Hemoglobin (Bld) [Mass/Vol] 11.5 g/dL Critically low 12.0-16.0 [facility] Comment on above: Performed By: #### C BC #### [facility] [address] [place] [address] Dr. Marianela Villa IG # 0.01 10e3/ul Normal 0.00-0.03 [facility] Comment on above: Performed By: #### C BC #### [facility] [address] [place] [address] Dr. Marianela Villa IG % 0.2 % Normal 0.0-0.5 [facility] Comment on above: Performed By: #### C BC #### [facility] [address] [place] [address] Dr. Marianela Villa LYMPH # 1.7 103/ul Normal 1.2-3.8 [facility] Comment on above: Performed By: #### C BC #### [facility] [address] [place] [address] Dr. Marianela Villa Lymphocytes/100 WBC (Bld) 31.4 % Normal 20.5-60.0 [facility] Comment on above: Performed By: #### C BC #### [facility] [address] [place] [address] Dr. Marianela Villa MANUAL DIFF REQ NO Normal [facility] Comment on above: Performed By: #### C BC #### [facility] [address] [place] [address] Dr. Marianela Villa MCH (RBC) [Entitic mass] 26.6 pg Critically low 26.7-34.0 [facility] Comment on above: Performed By: #### C BC #### [facility] [address] [place] [address] Dr. Marianela Villa MCHC (RBC) [Mass/Vol] 31.6 g/dL Normal 29.9-35.2 [facility] Comment on above: Performed By: #### C BC #### [facility] [address] [place] [address] Dr. Marianela Villa MCV (RBC) [Entitic vol] 84.1 fL Normal 81.0-99.0 [facility] Comment on above: Performed By: #### C BC #### [facility] [address] [place] [address] Dr. Marianela Villa MONO # 0.4 103/ul Normal 0.3-0.8 [facility] Comment on above: Performed By: #### C BC #### [facility] [address] [place] [address] Dr. Marianela Villa Monocytes/100 WBC (Bld) 7.6 % Normal 1.7-12.0 [facility] Comment on above: Performed By: #### C BC #### [facility] [address] [place] [address] Dr. Marianela Villa NEUT # 3.3 103/ul Normal 1.4-6.5 [facility] Comment on above: Performed By: #### C BC #### [facility] [address] [place] [address] Dr. Marianela Villa Neutrophils/100 WBC (Bld) 59.0 % Normal 43.0-75.0 [facility] Comment on above: Performed By: #### C BC #### [facility] [address] [place] [address] Dr. Marianela Villa Platelet mean volume (Bld) [Entitic vol] 11.2 fL Normal 9.5-13.5 [facility] Comment on above: Performed By: #### C BC #### [facility] [address] [place] [address] Dr. Marianela Villa PLT 297 103/ul Normal 150-450 [facility] Comment on above: Performed By: #### C BC #### [facility] [address] [place] [address] Dr. Marianela Villa RBC 4.33 106/ul Normal 4.20-5.40 [facility] Comment on above: Performed By: #### C BC #### [facility] [address] [place] [address] Dr. Marianela Villa WBC 5.5 103/ul Normal 4.0-11.0 [facility] Comment on above: Performed By: #### C BC #### [facility] [address] [place] [address] Dr. Marianela Villa CBC AUTO DIFFon 02-18-2022 BASO # 0.0 103/ul Normal 0.0-0.1 [facility] Comment on above: Performed By: #### P REG #### [facility] [address] [place] [address] Dr. Marianela Villa Basophils/100 WBC (Bld) 0.3 % Normal 0.2-2.0 [facility] Comment on above: Performed By: #### P REG #### [facility] [address] [place] [address] Dr. Marianela Villa EO # 0.1 103/ul Normal 0.0-0.7 [facility] Comment on above: Performed By: #### P REG #### [facility] [address] [place] [address] Dr. Marianela Villa Eosinophils/100 WBC (Bld) 1.0 % Normal 0.9-7.0 [facility] Comment on above: Performed By: #### P REG #### [facility] [address] [place] [address] Dr. Marianela Villa Erythrocyte distribution width (RBC) [Ratio] 25.0 % Critically high 11.0-15.0 [facility] Comment on above: Performed By: #### P REG #### [facility] [address] [place] [address] Dr. Marianela Villa Hematocrit (Bld) [Volume fraction] 34.9 % Critically low 36.0-48.0 [facility] Comment on above: Performed By: #### P REG #### [facility] [address] [place] [address] Dr. Marianela Villa Hemoglobin (Bld) [Mass/Vol] 10.6 g/dL Critically low 12.0-16.0 [facility] Comment on above: Performed By: #### P REG #### [facility] [address] [place] [address] Dr. Marianela Villa IG # 0.02 10e3/ul Normal 0.00-0.03 [facility] Comment on above: Performed By: #### P REG #### [facility] [address] [place] [address] Dr. Marianela Villa IG % 0.3 % Normal 0.0-0.5 [facility] Comment on above: Performed By: #### P REG #### [facility] [address] [place] [address] Dr. Marianela Villa LYMPH # 1.8 103/ul Normal 1.2-3.8 [facility] Comment on above: Performed By: #### P REG #### [facility] [address] [place] [address] Dr. Marianela Villa Lymphocytes/100 WBC (Bld) 26.0 % Normal 20.5-60.0 [facility] Comment on above: Performed By: #### P REG #### [facility] [address] [place] [address] Dr. Marianela Villa MANUAL DIFF REQ NO Normal [facility] Comment on above: Performed By: #### P REG #### [facility] [address] [place] [address] Dr. Marianela Villa MCH (RBC) [Entitic mass] 24.9 pg Critically low 26.7-34.0 [facility] Comment on above: Performed By: #### P REG #### [facility] [address] [address] [address] Marianela Villa MCHC (RBC) [Mass/Vol] 30.4 g/dL Normal 29.9-35.2 [facility] Comment on above: Performed By: #### P REG #### [facility] [address] [address] [address] Marianela Villa MCV (RBC) [Entitic vol] 81.9 fL Normal 81.0-99.0 [facility] Comment on above: Performed By: #### P REG #### [facility] [address] [address] [address] Marianela Villa MONO # 0.4 103/ul Normal 0.3-0.8 [facility] Comment on above: Performed By: #### P REG #### [facility] [address] [place] [address] Dr. Marianela Villa Monocytes/100 WBC (Bld) 5.5 % Normal 1.7-12.0 [facility] Comment on above: Performed By: #### P REG #### [facility] [address] [address] [address] Marianela Villa NEUT # 4.5 103/ul Normal 1.4-6.5 [facility] Comment on above: Performed By: #### P REG #### [facility] [address] [place] [address] Dr. Marianela Villa Neutrophils/100 WBC (Bld) 66.9 % Normal 43.0-75.0 [facility] Comment on above: Performed By: #### P REG #### [facility] [address] [address] [address] Marianela Villa Platelet mean volume (Bld) [Entitic vol] 11.1 fL Normal 9.5-13.5 [facility] Comment on above: Performed By: #### P REG #### [facility] [address] [address] [address] Marianela Villa PLT 198 103/ul Normal 150-450 [facility] Comment on above: Performed By: #### P REG #### [facility] [address] [place] [address] Dr. Marianela Villa RBC 4.26 106/ul Normal 4.20-5.40 [facility] Comment on above: Performed By: #### P REG #### [facility] [address] [place] [address] Dr. Marianela Villa WBC 6.8 103/ul Normal 4.0-11.0 [facility] Comment on above: Performed By: #### P REG #### [facility] [address] [place] [address] Dr. Marianela Villa IRONon 02-18-2022 Iron [Mass/Vol] 57.0 ug/dL Normal 50.0-170.0 [facility] Comment on above: Performed By: #### C DANY, BUN #### [facility] [address] [place] [address] Dr. Marianela Villa OCC BLD IMMUNO SCREENon OCCULT BLOOD Negative Normal NEGATIVE [facility] Comment on above: Performed By: #### O BSCRN #### [facility] [address] [place] [address] Dr. Marianela Villa Physician Referralon 022 Physician Referral [id number]#[id number]:[address] [facility] CBC AUTO DIFFon 02-02-2022 BASO # 0.0 103/ul Normal 0.0-0.1 [facility] Comment on above: Performed By: #### C BC #### [facility] [address] [place] [address] Dr. Marianela Villa Basophils/100 WBC (Bld) 0.4 % Normal 0.2-2.0 [facility] Comment on above: Performed By: #### C BC #### [facility] [address] [place] [address] Dr. Marianela Villa EO # 0.1 103/ul Normal 0.0-0.7 [facility] Comment on above: Performed By: #### C BC #### [facility] [address] [place] [address] Dr. Marianela Villa Eosinophils/100 WBC (Bld) 1.3 % Normal 0.9-7.0 [facility] Comment on above: Performed By: #### C BC #### [facility] [address] [place] [address] Dr. Marianela Villa Erythrocyte distribution width (RBC) [Ratio] 17.7 % Critically high 11.0-15.0 [facility] Comment on above: Performed By: #### C BC #### [facility] [address] [place] [address] Dr. Marianela Villa Hematocrit (Bld) [Volume fraction] 30.3 % Critically low 36.0-48.0 [facility] Comment on above: Performed By: #### C BC #### [facility] [address] [place] [address] Dr. Marianela Villa Hemoglobin (Bld) [Mass/Vol] 9.1 g/dL Critically low 12.0-16.0 [facility] Comment on above: Performed By: #### C BC #### [facility] [address] [place] [address] Dr. Marianela Villa IG # 0.01 10e3/ul Normal 0.00-0.03 [facility] Comment on above: Performed By: #### C BC #### [facility] [address] [place] [address] Dr. Marianela Villa IG % 0.1 % Normal 0.0-0.5 [facility] Comment on above: Performed By: #### C BC #### [facility] [address] [place] [address] Dr. Marianela Villa LYMPH # 1.9 103/ul Normal 1.2-3.8 [facility] Comment on above: Performed By: #### C BC #### [facility] [address] [place] [address] Dr. Marianela Villa Lymphocytes/100 WBC (Bld) 28.6 % Normal 20.5-60.0 [facility] Comment on above: Performed By: #### C BC #### [facility] [address] [place] [address] Dr. Marianela Villa MANUAL DIFF REQ NO Normal [facility] Comment on above: Performed By: #### C BC #### [facility] [address] [place] [address] Dr. Marianela Villa MCH (RBC) [Entitic mass] 23.3 pg Critically low 26.7-34.0 [facility] Comment on above: Performed By: #### C BC #### [facility] [address] [place] [address] Dr. Marianela Villa MCHC (RBC) [Mass/Vol] 30.0 g/dL Normal 29.9-35.2 [facility] Comment on above: Performed By: #### C BC #### [facility] [address] [place] [address] Dr. Marianela Villa MCV (RBC) [Entitic vol] 77.5 fL Critically low 81.0-99.0 [facility] Comment on above: Performed By: #### C BC #### [facility] [address] [place] [address] Dr. Marianela Villa MONO # 0.5 103/ul Normal 0.3-0.8 [facility] Comment on above: Performed By: #### C BC #### [facility] [address] [place] [address] Dr. Marianela Villa Monocytes/100 WBC (Bld) 6.7 % Normal 1.7-12.0 [facility] Comment on above: Performed By: #### C BC #### [facility] [address] [place] [address] Dr. Marianela Villa NEUT # 4.2 103/ul Normal 1.4-6.5 [facility] Comment on above: Performed By: #### C BC #### [facility] [address] [place] [address] Dr. Marianela Villa Neutrophils/100 WBC (Bld) 62.9 % Normal 43.0-75.0 [facility] Comment on above: Performed By: #### C BC #### [facility] [address] [place] [address] Dr. Marianela Villa Platelet mean volume (Bld) [Entitic vol] 11.0 fL Normal 9.5-13.5 [facility] Comment on above: Performed By: #### C BC #### [facility] [address] [place] [address] Dr. Marianela Villa PLT 284 103/ul Normal 150-450 [facility] Comment on above: Performed By: #### C BC #### [facility] [address] [place] [address] Dr. Marianela Villa RBC 3.91 106/ul Critically low 4.20-5.40 [facility] Comment on above: Performed By: #### C BC #### [facility] [address] [place] [address] Dr. Marianela Villa WBC 6.7 103/ul Normal 4.0-11.0 [facility] Comment on above: Performed By: #### C BC #### [facility] [address] [place] [address] Dr. Marianela Villa CRPon 02-02-2022 CRP [Mass/Vol] mg/L Normal <=1.0 [facility] Comment on above: Performed By: #### C DANY BUN #### [facility] [address] [place] [address] Dr. Marianela Villa FREE T3on 02-02-2022 FREE T3 2.06 pg/mlL Critically low 2.18-3.98 [facility] Comment on above: Performed By: #### C DANY BUN #### [facility] [address] [place] [address] Dr. Marianela Villa FREE T4on 02-02-2022 Free T4 [Mass/Vol] 0.89 ng/dL Normal 0.76-1.46 [facility] Comment on above: Performed By: #### P REG #### [facility] [address] [place] [address] Dr. Marianela Villa GLYCOHEMOGLOBIN A1Con 2021 ADA RECOMMENDATION SEE BELOW Normal [facility] Comment on above: Result Comment: ADA RECOMMENDED LIMIT 4.0 - 6.0 ADA THERAPEUTIC TARGET < 7.0 ACTION SUGGESTED > 7.0 Performed By: #### C DANY, BUN #### [facility] [address] [address] [address] Marianela Villa Glucose [Mass/Vol] 131 mg/dL Normal [facility] Comment on above: Performed By: #### C DANY, BUN #### [facility] [address] [address] [address] Marianela Villa HbA1c (Bld) [Mass fraction] 6.2 % Normal 4.5-6.2 [facility] Comment on above: Performed By: #### C DANY, BUN #### [facility] [address] [place] [address] Dr. Marianela Villa IRONon 02-02-2022 Iron [Mass/Vol] 15.0 ug/dL Critically low 50.0-170.0 [facility] Comment on above: Performed By: #### P REG #### [facility] [address] [place] [address] Dr. Marianela Villa LIPID PROFILEon 02-02-2022 CHOL-HDL RATIO NORM SEE BELOW Normal [facility] Comment on above: Result Comment: 3.3 - 4.4 LOW RISK 4.4 - 7.1 AVERAGE RISK 7.1 - 11.0 MODERATE RISK >11.0 HIGH RISK Performed By: #### C DANY, BUN #### [facility] [address] [place] [address] Dr. Marianela Villa Cholesterol [Mass/Vol] 187 mg/dL Normal <=200 [facility] Comment on above: Performed By: #### C DANY, BUN #### [facility] [address] [place] [address] Dr. Marianela Villa Cholesterol in HDL [Mass/Vol] 56 mg/dL Normal 40-60 [facility] Comment on above: Performed By: #### C DANY, BUN #### [facility] [address] [place] [address] Dr. Marianela Villa Cholesterol in LDL [Mass/Vol] 114.6 mg/dL Normal [facility] Comment on above: Performed By: #### C DANY, BUN #### [facility] [address] [address] [address] Marianela Villa Cholesterol.total/ Cholesterol in HDL [Mass ratio] 3.3 {ratio} Normal [facility] Comment on above: Performed By: #### C DANY, BUN #### [facility] [address] [address] [address] Marianela Villa HDL NORMAL > or = 60 mg/dl - LO W CARDIOVASCULAR RISK <40 mg/dl - HIGH CARDIOVASCULAR RISK Normal [facility] Comment on above: Performed By: #### C DANY BUN #### [facility] [address] [place] [address] Dr. Marianela Villa LDL CALC NORMAL SEE BELOW Normal [facility] Comment on above: Result Comment: <100 mg/dl OPTIMAL 100 - 129 mg/dl NEAR OR ABOVE OPTIMAL 130 - 159 mg/dl BORDERLINE HIGH 160 - 189 mg/dl HIGH >190 mg/dl VERY HIGH Performed By: #### C DANY BUN #### [facility] [address] [place] [address] Dr. Marianela Villa Triglyceride [Mass/Vol] 82 mg/dL Normal <=150 [facility] Comment on above: Performed By: #### C DANY BUN #### [facility] [address] [place] [address] Dr. Marianela Villa VLDL CALC 16.4 mg/dL Normal [facility] Comment on above: Performed By: #### Santos SAENZ BUN #### [facility] [address] [place] [address] Dr. Marianela Villa MAGNESIUMon 02-02-2022 Magnesium [Mass/Vol] 2.0 mg/dL Normal 1.8-2.4 [facility] Comment on above: Performed By: #### C DANY BUN #### [facility] [address] [place] [address] Dr. Marianela Villa PREG HCG QUALon 02-02-2022 , QUAL Negative Normal NEGATIVE [facility] Comment on above: Performed By: #### P REG #### [facility] [address] [place] [address] Dr. Marianela Villa PROF 14(COMP METB)on 022 Albumin [Mass/Vol] 4.0 g/dL Normal 3.4-5.0 [facility] Comment on above: Performed By: #### C DANY, BUN #### [facility] [address] [address] [address] Marianela Villa Albumin/Globulin [Mass ratio] 1.0 {ratio} Normal [facility] Comment on above: Performed By: #### C DANY, BUN #### [facility] [address] [address] [address] Marianela Villa ALP [Catalytic activity/Vol] 173 U/L Critically high 46-116 [facility] Comment on above: Performed By: #### C DANY, BUN #### [facility] [address] [place] [address] Dr. Marianela Villa ALT [Catalytic activity/Vol] 45 U/L Normal 14-59 [facility] Comment on above: Performed By: #### C DANY, BUN #### [facility] [address] [address] [address] Marianela Villa Anion gap [Moles/Vol] 12.9 mmol/L Normal [facility] Comment on above: Performed By: #### Santos SAENZ, BUN #### [facility] [address] [address] [address] Marianela Villa AST [Catalytic activity/Vol] 35 U/L Normal 15-37 [facility] Comment on above: Performed By: #### C DANY, BUN #### [facility] [address] [place] [address] Dr. Marianela Villa Bilirubin [Mass/Vol] 0.3 mg/dL Normal 0.2-1.0 [facility] Comment on above: Performed By: #### C DANY, BUN #### [facility] [address] [place] [address] Dr. Marianela Villa Calcium [Mass/Vol] 9.1 mg/dL Normal 8.5-10.1 [facility] Comment on above: Performed By: #### C DANY, BUN #### [facility] [address] [address] [address] Marianela Villa Chloride [Moles/Vol] 103 mmol/L Normal 98-107 [facility] Comment on above: Performed By: #### C DANY, BUN #### [facility] [address] [address] [address] Marianela Villa CO2 [Moles/Vol] 27.0 mmol/L Normal 21.0-32.[address] [facility] Comment on above: Performed By: #### C DANY, BUN #### [facility] [address] [address] [address] Marianela Villa Creatinine [Mass/Vol] 0.70 mg/dL Normal 0.55-1.02 [facility] Comment on above: Performed By: #### C DANY, BUN #### [facility] [address] [place] [address] Dr. Marianela Villa EGFR-AF SERBIAN >60 Normal >=[address] [facility] Comment on above: Performed By: #### C DANY, BUN #### [facility] [address] [place] [address] Dr. Marianela Villa EGFR-NON AF SERBIAN >60 Normal >=60 [facility] Comment on above: Performed By: #### C DANY, BUN #### [facility] [address] [address] [address] Marianela Villa Globulin (S) [Mass/Vol] 3.9 g/dL Normal [facility] Comment on above: Performed By: #### C DANY, BUN #### [facility] [address] [address] [address] Marianela Villa Glucose [Mass/Vol] 88 mg/dL Normal 74-106 [facility] Comment on above: Performed By: #### C DANY, BUN #### [facility] [address] [place] [address] Dr. Marianela Villa Potassium [Moles/Vol] 3.9 mmol/L Normal 3.5-5.1 [facility] Comment on above: Performed By: #### C DANY, BUN #### [facility] [address] [address] [address] Marianela Villa Protein [Mass/Vol] 7.9 g/dL Normal 6.4-8.2 [facility] Comment on above: Performed By: #### C DANY, BUN #### [facility] [address] [address] [address] Marianela Villa Sodium [Moles/Vol] 139 mmol/L Normal 136-145 [facility] Comment on above: Performed By: #### C DANY, BUN #### [facility] [address] [place] [address] Dr. Marianela Villa Urea nitrogen [Mass/Vol] 6.0 mg/dL Critically low 7.0-18.0 [facility] Comment on above: Performed By: #### C DANY, BUN #### [facility] [address] [place] [address] Dr. Marianela Villa Urea nitrogen/Creatinin e [Mass ratio] 8.6 mg/mg Normal [facility] Comment on above: Performed By: #### C DANY, BUN #### [facility] [address] [place] [address] Dr. Marianela Villa [facility]ATE 49 mm/hr Critically high <=20 [facility] Comment on above: Performed By: #### C BC #### [facility] [address] [place] [address] Dr. Marianela Villa TSHon 02-02-2022 TSH 1.378 uIU/mL Normal 0.358-3.740 [facility] Comment on above: Performed By: #### C DANY, BUN #### [facility] [address] [place] [address] Dr. Marianela Villa UA RANDOM W/MICROSCOPICon BACTERIA NONE SEEN Normal NONE SEEN [facility] Comment on above: Performed By: #### P REG #### [facility] [address] [place] [address] Dr. Marianela Villa Bilirubin Ql (U) Negative Normal NEGATIVE [facility] Comment on above: Performed By: #### P REG #### [facility] [address] [place] [address] Dr. Marianela Villa CAST NONE SEEN Normal NONE SEEN [facility] Comment on above: Performed By: #### P REG #### [facility] [address] [place] [address] Dr. Marianela Villa Clarity (U) CLEAR Normal CLEAR [facility] Comment on above: Performed By: #### P REG #### [facility] [address] [place] [address] Dr. Marianela Villa Color (U) LT. YELLOW Normal YELLOW [facility] Comment on above: Performed By: #### P REG #### [facility] [address] [place] [address] Dr. Marianela Villa Crystals LM Nom (Urine sed) NONE SEEN Normal NONE SEEN [facility] Comment on above: Performed By: #### P REG #### [facility] [address] [place] [address] Dr. Marianela Villa Epithelial cells LM Ql (Urine sed) FEW Abnormal NONE SEEN /RARE [facility] Comment on above: Performed By: #### P REG #### [facility] [address] [place] [address] Dr. Marianela Villa Glucose Ql (U) Negative Normal NEGATIVE [facility] Comment on above: Performed By: #### P REG #### [facility] [address] [place] [address] Dr. Marianela Villa Hemoglobin Ql (U) Negative Normal NEGATIVE [facility] Comment on above: Performed By: #### P REG #### [facility] [address] [place] [address] Dr. Marianela Villa Ketones Ql (U) Negative Normal NEGATIVE [facility] Comment on above: Performed By: #### P REG #### [facility] [address] [place] [address] Dr. Marianela Villa LEUKOCYTES Negative Normal NEGATIVE [facility] Comment on above: Performed By: #### P REG #### [facility] [address] [place] [address] Dr. Marianela Villa MUCOUS NONE SEEN Normal NONE SEEN [facility] Comment on above: Performed By: #### P REG #### [facility] [address] [place] [address] Dr. Marianela Villa Nitrite Ql (U) Negative Normal NEGATIVE [facility] Comment on above: Performed By: #### P REG #### [facility] [address] [place] [address] Dr. Marianela Villa pH (U) 6.5 [pH] Normal 5-9 [facility] Comment on above: Performed By: #### P REG #### [facility] [address] [place] [address] Dr. Marianela Villa RBC NONE SEEN Abnormal 0-2 [facility] Comment on above: Performed By: #### P REG #### [facility] [address] [place] [address] Dr. Marianela Villa SPEC GRAVITY <=1.005 Abnormal 1.005-<=1.0 25 [facility] Comment on above: Performed By: #### P REG #### [facility] [address] [place] [address] Dr. Marianela Villa UA PROTEIN Negative Normal NEGATIVE/ TRACE [facility] Comment on above: Performed By: #### P REG #### [facility] [address] [place] [address] Dr. Marianela Villa Urobilinogen Qn (U) 0.2 {Trish'U}/dL Normal 0.2 - 1.0 [facility] Comment on above: Performed By: #### P REG #### [facility] [address] [place] [address] Dr. Marianela Villa WBC NONE SEEN Normal NONE SEEN [facility] Comment on above: Performed By: #### P REG #### [facility] [address] [place] [address] Dr. Marianela Villa VITAMIN B12on 02-02-2022 Cobalamin (Vitamin B12) [Mass/Vol] 630.0 pg/mL Normal 193.0-986.0 [facility] Comment on above: Performed By: #### P REG #### [facility] [address] [place], [place] [address] Dr. Marianela Villa VITAMIN D 25 OHon 02-02-2022 VIT D 25-OH 42.7 ng/mL Normal [facility] Comment on above: Performed By: #### P REG #### [facility] [address] [place], [place] [address] Dr. Marianela Villa VIT D RANGES SEE BELOW Normal [facility] Comment on above: Result Comment: <20 ng/mL Vit D deficient 20 - <30 ng/mL Vit D insufficient 30 - 100 ng/mL Vit D sufficient >100 ng/mL Potential Toxicity Performed By: #### P REG #### [facility] [address] [place], [place] [address] Dr. Marianela Villa [facility], [facility] Lab Reporton 01-02-2018 Report Normal [facility] Comment on above: Performed By: #### D NASTUDY #### Performed at [facility], [address] [place] [id number] Vital Signs Date Time Vital Sign Value Performing Clinician Linda blake 03-05-2022 13:19-0500 Blood Pressure Location [facility] [place] 03-05-2022 13:19-0500 Diastolic blood pressure 76 mm[Hg] [facility] [place] 03-05-2022 13:19-0500 Heart rate 70 /min [facility] [place] 03-05-2022 13:19-0500 Respiratory rate 16 /min [facility] [place] 03-05-2022 13:19-0500 Systolic blood pressure 120 mm[Hg] [facility] [place] Encounters Encounter Date Encounter Type Care Provider Facility Start: 11-07-2023 End: 11-07-2023 ambulatory DYLAN RNEZO Not Available Start: 10-03-2023 End: 10-03-2023 ambulatory DYLAN RENZO Not Available Start: 09-29-2023 End: 09-29-2023 ambulatory LINDACrispin REDMOND Not Available Start: 08-31-2023 End: 08-31-2023 ambulatory LINDA REDMOND Not Available Start: 07-19-2022 Encounter for preprocedural laboratory examination DR DYLAN RAJAN . [facility] Start: 07-16-2022 End: 07-17-2022 ambulatory YANG REDMOND Facility:[facility] Start: 07-13-2022 End: 07-14-2022 ambulatory YANG REDMOND Facility:[facility] Start: 07-13-2022 End: 07-14-2022 Encounter for preprocedural laboratory examination YANG REDMOND Facility:[facility] Start: 07-09-2022 Encounter for preprocedural cardiovascular examination DR DYLAN RAJAN . [facility] Start: 07-09-2022 Encounter for preprocedural laboratory examination DR DYLAN RAJAN . [facility] Start: 07-01-2022 End: 07-02-[address] DYLAN RAJAN . Facility:[facility] Start: 07-01-2022 End: 07-02-2022 Encounter for preprocedural cardiovascular examination DR DYLAN RAJAN . Facility:[facility] Start: 05-05-2022 End: 05-06-2022 ambulatory YANG REDMOND Facility:[facility] Start: 04-26-2022 End: 04-26-2022 ambulatory YANG REDMOND Facility:[facility] Start: 04-16-2022 End: 04-17-2022 ambulatory YANG REDMOND Facility:[facility] Start: 04-14-2022 End: 04-15-2022 [facility]ulatory [facility] Start: 04-14-2022 End: 04-14-2022 Patient encounter procedure Halley BARBOSA [facility] Start: 04-07-2022 End: 04-08-2022 ambulatory Halley BARBOSA Facility:CD:[id number] Start: 03-31-2022 End: 04-01-[address] HALLEY BARBOSA . Facility:[facility] Start: 03-11-2022 End: 03-11-2022 ambulatory YANG CONDEA EDILMAREI Facility:[facility] Start: 03-05-2022 End: 03-06-2022 ambulatory Halley R NILL Facility:[facility] Start: 03-05-2022 End: 03-05-2022 Patient encounter procedure Halley R NILL General Surgery Nill/Richie [facility] Start: 03-01-2022 End: 03-02-2022 ambulatory LAUNCH STEWARD LINDA REDMOND Facility:[facility] Start: 02-18-2022 End: 02-19-2022 ambulatory LAUNCH STEWARD LINDA REDMOND Facility:[facility] Start: 02-04-2022 End: 02-04-2022 ambulatory LAUNCH STEWARD LINDA REDMOND Facility:[facility] Start: 02-03-2022 ambulatory Halley NILL Facility:[facility] Start: 02-02-2022 End: 02-03-2022 ambulatory YANG REDMOND Facility:[facility] Start: 01-02-2018 Patient encounter procedure NO PCP [facility] Procedures Date Procedure Procedure Detail Performing Clinician Start: 04-07-2022 Colonoscopy Halley NI LL Start: 04-07-2022 Esophagogastroduodenoscopy Halley BARBOSA Start: 04-04-2008 section Tara tu NILL Start: 04-04-2007 section Tara l NILL Extraction of wisdom tooth M ichael NILL Immunizations Immunization Date Immunization Notes Care Provider Fa cility 08-16-2020 SARS-CoV-2 (COVID-19 ) mRNA-1273 vaccine Halley NILL [facility] [place] Comment on above: Result Comment: 2021: TPVALL 07-19-2020 SARS-CoV-2 (COVID-19 ) mRNA-1273 vaccine Halley NILL [facility] [place] Comment on above: Result Comment: 2021: TPVALL NEGATED: Highlighted row has not occurred!03-05-2022 influenza virus vaccine, unspecified formulation Halley BENITA [facility] [place] Payers Date Payer Category Payer Unknown [id number] 2.16.8 [id number] 1983 Unknown [id number] 2.16.8 [id number] 1983 Unknown [id number] 2.16.8 [id number] 1983 Unknown [id number] 2.16.84 0.1.687808.3.579.2.593 1983 Unknown [id number] 2.16.84 0.1.606181.3.579.2.593 1983 Unknown [id number] 2.16.84 0.1.173247.3.579.2.593 1983 Unknown [id number] 2.16.84 0.1.184305.3.579.2.593 1983 Unknown [id number] 2.16.84 0.1.507897.3.579.2.593 1983 Unknown [id number] 2.16.84 0.1.006800.3.579.2.593 1983 Unknown [id number] 2.16.84 0.1.807832.3.579.2.593 1983 Unknown [id number] 2.16.84 0.1.307104.3.579.2.593 1983 Unknown [id number] 2.16.84 0.1.495553.3.579.2.593 1983 Unknown [id number] 2.16.84 0.1.019748.3.579.2.593 1983 Unknown [id number] 2.16.84 0.1.936673.3.579.2.593 1983 Unknown [id number] 2.16.84 0.1.569675.3.579.2.593 1983 Unknown [id number] 2.16.84 0.1.602104.3.579.2.593 1983 Unknown [id number] 2.16.84 0.1.590731.3.579.2.9 1983 Unknown [id number] 2.16.84 0.1.626859.3.579.2.9 1983 Unknown [id number] 2.16.84 0.1.247430.3.579.2.1258 1983 Unknown [id number] 2.16.84 0.1.436568.3.579.2.1259 1961 Private Health Insurance [id number] Social History Date Type Detail Facility Start: 03-05-2022 Tobacco smoking status Never s moked tobacco (finding) [facility] [place] Tobacco smoking status Never [facility] [place] Sex Assigned At Female [facility] Functional Status Date Assessment Result Facility 03-05-2022 Functional Status N/A [facility] Clinical Note 07-16-2022 Note Date & Type Note Facility 07-16-2022 Note OP Note OPERATION DATE: 07/16/2022 ADDENDUM: Please note that a left ovarian cystectomy was performed using the LigaSure apparatus. [facility] Clinical Note 07-16-2022 Note Date & Type Note Facility 07-16-2022 Note OPERATIVE NOTE OPERATION DATE: 07/26/2022 PROCEDURE: Robotic assisted laparoscopic hysterectomy with right salpingectomy, left cystectomy of endometrioma and cystoscopy. PREOPERATIVE DIAGNOSIS: Menorrhagia, dysmenorrhea, pelvic pain, dyspareunia. POSTOPERATIVE DIAGNOSIS: Menorrhagia, dysmenorrhea, pelvic pain, dyspareunia including a left ovarian endometrioma. ANESTHESIA: General. SURGEON: Dylan Rajan D.O. PASSENGER TIRE BUILDER: PJ Quevedo URINE OUTPUT: Yellow and clear. [...] Anesthesia first. Patient tolerated procedure well. [facility] Clinical Note 04-07-2022 Note Date & [...] pathology results. CC: Linda Redmond, YANG [facility] Clinical Note 03-05-2022 Note Date & [...] (COVID-19) mRNA-1273 vaccine 07/19/2020 Recorded 2022-03-03: TPVALL [facility] Comment on above: Result Comment: Elec tronically Signed By: BENITA GUTIERREZ, Halley Smith\Date and Time Signed: 03/05/22 13:57 EST Evaluation + Plan note Note Date & Type Note Facility Evaluation + Plan note No data available for this section [facility] Discharge instructions Note Date & Type Note Facility Hospital Discharge instructions No data available for this section [facility] [place] Progress note Note Date & Type Note Facility Progress note No data available for this section [facility] [place] Summary Purpose Family History No Family History Records FoundNo Family History Records FoundNo Family History Records FoundNo Family History Records Found Advance Directives No Advanced Directives Records FoundNo Advanced Directives Records FoundNo Advanced Directives Records FoundNo Advanced Directives Records Found Additional Source Comments INFORMATION SOURCE (unrecogn ized section and content) DATE CREATED AUTHOR 05/16/2018 [facility] DATE CREATED AUTHOR AUTHOR'S ORGANIZ ATION 04/17/2022 [facility] DATE CREATED AUTHOR AUTHOR'S ORGANIZ ATION 08/03/2022 [facility] DATE CREATED AUTHOR AUTHOR'S ORGANIZ ATION 11/09/2023 [facility] EPIC Patient Care team informatio n (unrecognized section and content) Personnel Name: LINDA REDMOND CNP Address: Address: [address] [place] [address] Personnel Name: IVANAlexLINDA MINAYA CNP Address: Address: [address] [place] [address] FOR RECORDS PERTAINING TO PATIENTS WHO ARE [...] BE BASED ON THE PRIMARY CLINICAL RECORDS. [facility] [employer] [facility]. provides no warranty or guarantee of the accuracy or completeness of information in this document.
[2023-12-08 11:52] LABS: Alanine Aminotransferase 39 U/L (14-59); Alkaline Phosphatase 183 U/L (46-116); Aspartate Amino Transferase 25 U/L (15-37); Bilirubin Direct 0.1 mg/dL (0.0-0.2); Bilirubin Total 0.5 mg/dL (0.2-1.0); Gamma Glutamyl Transpeptidase 405 U/L (8-55); Globulin 4.1 g/dL; Total Protein 8.1 g/dL (6.4-8.2)
== END 2023-12-08 10:37 | disposition home or self-care (01) ==
LOC: LAB 10:37
PROVIDERS: PCP Nurse Practitioner; Visit Provider Nurse Practitioner
DX: R74.8 Abnormal levels of other serum enzymes (principal)
CPT/HCPCS: 36415; 80076; 82977

== ENCOUNTER 2023-12-16 08:08 | Outpatient (OUT) | payer OTHER, SELFPAY ==
--- NOTE | 2023-12-16 | CT_ITS ---
[address] [address] Patient Name: ANTONIO MOY MRN: [id number] date: 1985 Sex: F Assigned Patient Location: CT Current Patient Location: CT Accession/Order Number: [id number] Exam Date: 12/16/2023 09:25 Report Date: 12/16/2023 13:06 At the request of: YANN ESTRADA Procedure: CT abdomen pelvis w con CT ABDOMEN AND PELVIS WITH CONTRAST: INDICATION: ALKALINE PHOSPHATASE ELEVATION R74.8. COMPARISON: None. TECHNIQUE: Helical CT images of the abdomen and pelvis were obtained after the administration of intravenous contrast. Dose reduction techniques were achieved by using automated exposure control and/or adjustment of mA and/or kV according to patient size and/or use of iterative reconstruction technique. FINDINGS: LOWER CHEST: The visualized lung bases are unremarkable. There is a small hiatal hernia. LIVER: Unremarkable. GALLBLADDER AND BILIARY SYSTEM: There is cholelithiasis. No intra or extrahepatic biliary ductal dilatation. SPLEEN: Unremarkable. PANCREAS: Unremarkable. ADRENAL GLANDS: Unremarkable. KIDNEYS AND URETERS: The kidneys enhance symmetrically. There is no hydronephrosis. There is a nonobstructing 2 mm calculus in the lower pole the right kidney. Punctate nonobstructing calculi in the upper pole the left kidney. No focal renal lesions. BLADDER: Unremarkable. GASTROINTESTINAL TRACT: Mild wall thickening of the descending colon which may be secondary to underdistention or mild colitis. No evidence of bowel obstruction. The appendix is not clearly identified. VASCULATURE: Unremarkable. RETROPERITONEUM AND LYMPH NODES: No lymphadenopathy or mass. PERITONEUM/MESENTERY: No abdominal ascites. No free air. PELVIS: There is a complex lesion in the left ovary measuring 4.8 x 6.4 x 5.2 cm. No pelvic ascites or lymphadenopathy. BODY WALL: Small to moderate fat-containing upper abdominal ventral hernia. Small fat-containing umbilical hernia with adjacent stranding of the fat. BONES: Mild to moderate loss of disc height at L5-S1. CT/CT abdomen pelvis w con IMPRESSION: 1. Complex lesion in the left ovary measuring 4.8 x 6.4 x 5.2 cm. An ovarian mass is not excluded. Further evaluation with pelvic MRI is recommended. 2. Cholelithiasis. No biliary ductal dilatation. 3. Small to moderate upper abdominal fat-containing ventral hernia. Small fat-containing umbilical hernia with adjacent fat stranding. 4. Small hiatal hernia. 5. Mild wall thickening of the descending colon which may be secondary to underdistention or less likely mild colitis. Electronically authenticated by: STACIE DASH Date: 12/16/2023 13:06
--- OUTSIDE RECORDS SUMMARY | 2023-12-16 08:29 | XMS_ITS | CCD ---
Author Organization [facility] Care Team Providers Care Infusion Therapy Nurse Name Role Phone PCP, NO Primary Care Unavailable MENDEL CORADO Attending Unavailable MENDEL CORADO Referring Unavailable AICLINDA SERVIN Primary Care Physician Halley BARBOSA Attending Unavailable AICHLINDA MINAYA J Referring Unavailabl e Halley BARBOSA Attending Unavailable Halley BARBOSA Attending Unavailable Halley BARBOSA Referring Unavailable AICHHOLZ, TREASURY ACCOUNTANT LINDA Primary Care Unavailable AICHHOLZ, TREASURY ACCOUNTANT LINDA Admitting Unavailable AICHHOLZ, TREASURY ACCOUNTANT LINDA Consulting Unavailable AICHHOLZ, TREASURY ACCOUNTANT LINDA Attending Unavailable AICHHOLZ, TREASURY ACCOUNTANT LINDA Admitting Unavailable AICHHOLZ, TREASURY ACCOUNTANT LINDA Consulting Unavailable AICHHOLZ, TREASURY ACCOUNTANT LINDA Attending Unavailable AICHHOLZ, TREASURY ACCOUNTANT LINDA Primary Care Unavailable AICHHOLZ, TREASURY ACCOUNTANT LINDA Consulting Unavailable AICHHOLZ, TREASURY ACCOUNTANT LINDA Attending Unavailable AICHHOLZ, TREASURY ACCOUNTANT LINDA Admitting Unavailable AICHHOLZ, TREASURY ACCOUNTANT LINDA Primary Care Unavailable DR TODD DORANTES Consulting Unavailable KIANA CHURCH Consulting Unavailable AICHHOLZ, TREASURY ACCOUNTANT ILNDA Consulting Unavailable AICHHOLZ, TREASURY ACCOUNTANT LINDA Attending Unavailable AICHHOLZ, TREASURY ACCOUNTANT LINDA Admitting Unavailable AICHHOLZ, TREASURY ACCOUNTANT LINDA Primary Care Unavailable DR TODD DORANTES Consulting Unavailable NILL ., DR ROWLEY Attending Unavailable NILL ., DR ROWLEY Admitting Unavailable AICHHOLZ, TREASURY ACCOUNTANT LINDA Primary Care Unavailable NILL ., DR ROWLEY Consulting Unavailable MINGO WHITMAN, VLAD Consulting Unavailable ALDO ELIZABETH Consulting Unavailable JED LINK Consulting Unavailable NILL ., DR ROWLEY Admitting Unavailable NILL ., DR ROWLEY Consulting Unavailable AICHHOLZ, TREASURY ACCOUNTANT LINDA Primary Care Unavailable NILL ., DR ROWLEY Attending Unavailable AICHHOLZ, TREASURY ACCOUNTANT LINDA Primary Care Unavailable RENZO ., DR RICHARDSON Admitting Unavailable RENZO ., DR RICHARDSON Consulting Unavailable RENZO ., DR RICHARDSON Attending Unavailable RENZO ., DR RICHARDSON Consulting Unavailable RENZO ., DR RICHARDSON Attending Unavailable RENZO ., DR RICHARDSON Admitting Unavailable AICHHOLZ, TREASURY ACCOUNTANT LINDA Primary Care Unavailable AICHHOLZ, TREASURY ACCOUNTANT LINDA Primary Care Unavailable RENZO ., DR RICHARDSON Consulting Unavailable RENZO ., DR RICHARDSON Attending Unavailable RENZO ., DR RICHARDSON Admitting Unavailable ROBERT HOPKINS Consulting Unavailable ABDI GALVAN Consulting Unavailable AICHHOLZ, TREASURY ACCOUNTANT LINDA Primary Care Unavailable AICHHOLZ, TREASURY ACCOUNTANT LINDA Attending Unavailable AICHHOLZ, TREASURY ACCOUNTANT LINDA Admitting Unavailable AICHHOLZ, TREASURY ACCOUNTANT LINDA Consulting Unavailable AICHHOLZ, TREASURY ACCOUNTANT LINDA Consulting Unavailable AICHHOLZ, TREASURY ACCOUNTANT LINDA Attending Unavailable AICHHOLZ, TREASURY ACCOUNTANT LINDA Admitting Unavailable AICHHOLZ, TREASURY ACCOUNTANT LINDA Primary Care Unavailable AICHHOLZ, TREASURY ACCOUNTANT LINDA Admitting Unavailable AICHHOLZ, TREASURY ACCOUNTANT LINDA Primary Care Unavailable AICHHOLZ, TREASURY ACCOUNTANT LINDA Consulting Unavailable AICHHOLZ, TREASURY ACCOUNTANT LINDA Attending Unavailable AICHHOLZ, TREASURY ACCOUNTANT LINDA Primary Care Unavailable AICHHOLZ, TREASURY ACCOUNTANT LINDA Admitting Unavailable AICHHOLZ, TREASURY ACCOUNTANT LINDA Consulting Unavailable AICHHOLZ, TREASURY ACCOUNTANT LINDA Attending Unavailable AICHHOLZ, LINDA Attending Unavailable AICHHOLZ, LINDA Attending Unavailable DYLAN RAJAN Attending Unavailable DYLAN RAJAN Attending Unavailable ABBIE BRANDT Attending Unavailable AICHHOLZ, LINDA Attending Unavailable Allergies Allergy Classification Reported Allergen(s) Allergy Type Date of Onset Reaction(s) Facility (3 sources) Cephalexin; Translations: [cephalexin] Drug Allergy Syncope (disorder) General Surgery [place] (2 sources) Cephalexin Drug Allergy [facility] Repository Medications Current Medications Medication Drug Class(es) [...] Onset: 04-14-2022 Other aftercare (1 source) Other penitentiary (current) drug therapy; Translations: [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 Marianela Villa CBC AUTO DIFFon 07-17-2022 BASO # 0.0 103/ul Normal 0.0-0.1 [facility] Comment on above: Performed By: #### Santos SAENZ BUN #### [facility] [address] [place] [address] Dr. Marianela Villa Basophils/100 WBC (Bld) 0.1 % Critically low 0.2-2.0 [facility] Comment on above: Performed By: #### Santos SAENZ, BUN #### [facility] [address] [place] [address] Dr. Marianela Villa EO # 0.0 103/ul Normal 0.0-0.7 [facility] Comment on above: Performed By: #### Santos SAENZ, BUN #### [facility] [address] [place] [address] Dr. Marianela Villa Eosinophils/100 WBC (Bld) 0.0 % Critically low 0.9-7.0 [facility] Comment on above: Performed By: #### Santos SAENZ, BUN #### [facility] [address] [place] [address] Dr. Marianela Villa Erythrocyte distribution width (RBC) [Ratio] 14.5 % Normal 11.0-15.0 [facility] Comment on above: Performed By: #### Santos SAENZ, BUN #### [facility] [address] [place] [address] Dr. Marianela Villa Hematocrit (Bld) [Volume fraction] 29.9 % Critically low 36.0-48.0 [facility] Comment on above: Performed By: #### C DANY, BUN #### [facility] [address] [place] [address] Dr. Marianela Villa Hemoglobin (Bld) [Mass/Vol] 10.0 g/dL Critically low 12.0-16.0 [facility] Comment on above: Performed By: #### C DANY, BUN #### [facility] [address] [place] [address] Dr. Marianela Villa IG # 0.04 10e3/ul Critically high 0.00-0.03 [facility] Comment on above: Performed By: #### C DANY, BUN #### [facility] [address] [place] [address] Dr. Marianela Villa IG % 0.4 % Normal 0.0-0.5 [facility] Comment on above: Performed By: #### C DANY, BUN #### [facility] [address] [place] [address] Dr. Marianela Villa LYMPH # 1.2 103/ul Normal 1.2-3.8 [facility] Comment on above: Performed By: #### C DANY, BUN #### [facility] [address] [place] [address] Dr. Marianela Villa Lymphocytes/100 WBC (Bld) 12.1 % Critically low 20.5-60.0 [facility] Comment on above: Performed By: #### C DANY, BUN #### [facility] [address] [place] [address] Dr. Marianela Villa MANUAL DIFF REQ NO Normal [facility] Comment on above: Performed By: #### C DANY, BUN #### [facility] [address] [place] [address] Dr. Marianela Villa MCH (RBC) [Entitic mass] 31.3 pg Normal 26.7-34.0 [facility] Comment on above: Performed By: #### C DANY, BUN #### [facility] [address] [place] [address] Dr. Marianela Villa MCHC (RBC) [Mass/Vol] 33.4 g/dL Normal 29.9-35.2 [facility] Comment on above: Performed By: #### C DANY, BUN #### [facility] [address] [place] [address] Dr. Marianela Villa MCV (RBC) [Entitic vol] 93.7 fL Normal 81.0-99.0 [facility] Comment on above: Performed By: #### C DANY, BUN #### [facility] [address] [place] [address] Dr. Marianela Villa MONO # 1.0 103/ul Critically high 0.3-0.8 [facility] Comment on above: Performed By: #### C DANY, BUN #### [facility] [address] [place] [address] Dr. Marianela Villa Monocytes/100 WBC (Bld) 10.2 % Normal 1.7-12.0 [facility] Comment on above: Performed By: #### C DANY, BUN #### [facility] [address] [place] [address] Dr. Marianela Villa NEUT # 7.7 103/ul Critically high 1.4-6.5 [facility] Comment on above: Performed By: #### C DANY, BUN #### [facility] [address] [place] [address] Dr. Marianela Villa Neutrophils/100 WBC (Bld) 77.2 % Critically high 43.0-75.0 [facility] Comment on above: Performed By: #### C DANY, BUN #### [facility] [address] [place] [address] Dr. Marianela Villa Platelet mean volume (Bld) [Entitic vol] 10.9 fL Normal 9.5-13.5 [facility] Comment on above: Performed By: #### C DANY, BUN #### [facility] [address] [address] [address] Marianela Villa PLT 188 103/ul Normal 150-450 [facility] Comment on above: Performed By: #### C DANY BUN #### [facility] [address] [place] [address] Dr. Marianela Villa RBC 3.19 106/ul Critically low 4.20-5.40 [facility] Comment on above: Performed By: #### Santos SAENZ BUN #### [facility] [address] [place] [address] Dr. Marianela Villa WBC 10.0 103/ul Normal 4.0-11.0 [facility] Comment on above: Performed By: #### C DANY BUN #### [facility] [address] [place] [address] Dr. Marianela Villa CREATININEon 07-17-2022 Creatinine [Mass/Vol] 0.78 mg/dL Normal 0.55-1.02 [facility] Comment on above: Performed By: #### Santos SAENZ BUN #### [facility] [address] [place] [address] Dr. Marianela Villa EGFR-AF [facility] >60 Normal >=60 [facility] Comment on above: Performed By: #### Santos SAENZ BUN #### [facility] [address] [place] [address] Dr. Marianela Villa EGFR-NON AF [facility] >60 Normal >=60 [facility] Comment on above: Performed By: #### C DANY BUN #### [facility] [address] [place] [address] Dr. Marianela Villa PREG QUANT HCGon 07-16-2022 HCG QUANT <1 Normal [facility] Comment on above: Performed By: #### P REGQNT #### [facility] [address] [place] [address] Dr. Marianela Villa HCG RANGE SEE BELOW Normal [facility] Comment on above: Result Comment: 5-50 0.2-1 WEEK 50-500 1-2 WEEKS 100-5,000 2-3 WEEKS 500-10,000 3-4 WEEKS 1,000-50,000 4-5 WEEKS 10,000-100,000 5-6 WEEKS 15,000-200,000 6-8 WEEKS 10,000-100,000 2-3 MONTHS Performed By: #### P REGQNT #### [facility] [address] [place] [address] Dr. Marianela Villa TYPE AND SCREENon 07-13-2022 TYPE AND SCREEN Negative Normal [facility] Comment on above: Performed By: #### C DANY, BUN #### [facility] [address] [place] [address] Dr. Marianela Villa CBC AUTO DIFFon 07-01-2022 BASO # 0.0 103/ul Normal 0.0-0.1 [facility] Comment on above: Performed By: #### C BC #### [facility] [address] [place] [address] Dr. Marianela Villa Basophils/100 WBC (Bld) 0.3 % Normal 0.2-2.0 [facility] Comment on above: Performed By: #### C BC #### [facility] [address] [place] [address] Dr. Marianela Villa EO # 0.1 103/ul Normal 0.0-0.7 [facility] Comment on above: Performed By: #### C BC #### [facility] [address] [place] [address] Dr. Marianela Villa Eosinophils/100 WBC (Bld) 1.6 % Normal 0.9-7.0 [facility] Comment on above: Performed By: #### C BC #### [facility] [address] [place] [address] Dr. Marianela Villa Erythrocyte distribution width (RBC) [Ratio] 13.9 % Normal 11.0-15.0 [facility] Comment on above: Performed By: #### C BC #### [facility] [address] [place] [address] Dr. Marianela Villa Hematocrit (Bld) [Volume fraction] 37.9 % Normal 36.0-48.0 [facility] Comment on above: Performed By: #### C BC #### [facility] [address] [place] [address] Dr. Marianela Villa Hemoglobin (Bld) [Mass/Vol] 12.3 g/dL Normal 12.0-16.0 [facility] Comment on above: Performed By: #### C BC #### [facility] [address] [place] [address] Dr. Marianela Villa IG # 0.01 10e3/ul Normal 0.00-0.03 [facility] Comment on above: Performed By: #### C BC #### [facility] [address] [place] [address] Dr. Marianela Villa IG % 0.2 % Normal 0.0-0.5 [facility] Comment on above: Performed By: #### C BC #### [facility] [address] [place] [address] Dr. Marianela Villa LYMPH # 1.6 103/ul Normal 1.2-3.8 [facility] Comment on above: Performed By: #### C BC #### [facility] [address] [place] [address] Dr. Marianela Villa Lymphocytes/100 WBC (Bld) 24.6 % Normal 20.5-60.0 [facility] Comment on above: Performed By: #### C BC #### [facility] [address] [place] [address] Dr. Marianela Villa MANUAL DIFF REQ NO Normal [facility] Comment on above: Performed By: #### C BC #### [facility] [address] [place] [address] Dr. Marianela Villa MCH (RBC) [Entitic mass] 30.5 pg Normal 26.7-34.0 [facility] Comment on above: Performed By: #### C BC #### [facility] [address] [place] [address] Dr. Marianela Villa MCHC (RBC) [Mass/Vol] 32.5 g/dL Normal 29.9-35.2 [facility] Comment on above: Performed By: #### C BC #### [facility] [address] [place] [address] Dr. Marianela iVlla MCV (RBC) [Entitic vol] 94.0 fL Normal 81.0-99.0 [facility] Comment on above: Performed By: #### C BC #### [facility] [address] [place] [address] Dr. Marianela Villa MONO # 0.5 103/ul Normal 0.3-0.8 [facility] Comment on above: Performed By: #### C BC #### [facility] [address] [place] [address] Dr. Marianela Villa Monocytes/100 WBC (Bld) 7.6 % Normal 1.7-12.0 [facility] Comment on above: Performed By: #### C BC #### [facility] [address] [place] [address] Dr. Marianela Villa NEUT # 4.2 103/ul Normal 1.4-6.5 [facility] Comment on above: Performed By: #### C BC #### [facility] [address] [place] [address] Dr. Marianela Villa Neutrophils/100 WBC (Bld) 65.7 % Normal 43.0-75.0 [facility] Comment on above: Performed By: #### C BC #### [facility] [address] [place] [address] Dr. Marianela Villa Platelet mean volume (Bld) [Entitic vol] 11.0 fL Normal 9.5-13.5 [facility] Comment on above: Performed By: #### C BC #### [facility] [address] [place] [address] Dr. Marianela Villa PLT 251 103/ul Normal 150-450 [facility] Comment on above: Performed By: #### C BC #### [facility] [address] [place] [address] Dr. Marianela Villa RBC 4.03 106/ul Critically low 4.20-5.40 [facility] Comment on above: Performed By: #### C BC #### [facility] [address] [place] [address] Dr. Marianela Villa WBC 6.4 103/ul Normal 4.0-11.0 [facility] Comment on above: Performed By: #### C BC #### [facility] [address] [place] [address] Dr. Marianela Villa LIVER PROFILEon 07-01-2022 Albumin [Mass/Vol] 3.7 g/dL Normal 3.4-5.0 [facility] Comment on above: Performed By: #### B MP, LIVER #### [facility] [address] [place] [address] Dr. Marianela iVlla Albumin/Globulin [Mass ratio] 1.0 {ratio} Normal [facility] Comment on above: Performed By: #### B MP, LIVER #### [facility] [address] [place] [address] Dr. Marianela Villa ALP [Catalytic activity/Vol] 96 U/L Normal 46-116 [facility] Comment on above: Performed By: #### B MP, LIVER #### [facility] [address] [place] [address] Dr. Marianela Villa ALT [Catalytic activity/Vol] 25 U/L Normal 14-59 [facility] Comment on above: Performed By: #### B MP, LIVER #### [facility] [address] [place] [address] Dr. Marianela Villa AST [Catalytic activity/Vol] 16 U/L Normal 15-37 [facility] Comment on above: Performed By: #### B MP, LIVER #### [facility] [address] [place] [address] Dr. Marianela Villa BILI, CONJUGATED 0.0 mg/dL Normal 0.0-0.2 [facility] Comment on above: Performed By: #### B MP, LIVER #### [facility] [address] [place] [address] Dr. Marianela Villa Bilirubin [Mass/Vol] 0.2 mg/dL Normal 0.2-1.0 [facility] Comment on above: Performed By: #### B MP, LIVER #### [facility] [address] [place] [address] Dr. Marianela Villa Globulin (S) [Mass/Vol] 3.7 g/dL Normal [facility] Comment on above: Performed By: #### B MP, LIVER #### [facility] [address] [place] [address] Dr. Marianela Villa Protein [Mass/Vol] 7.4 g/dL Normal 6.4-8.2 [facility] Comment on above: Performed By: #### B MP, LIVER #### [facility] [address] [place] [address] Dr. Marianela Villa PROF CHEM 8 (BAS METB)on Anion gap [Moles/Vol] 13.2 mmol/L Normal [facility] Comment on above: Performed By: #### B MP, LIVER #### [facility] [address] [place] [address] Dr. Marianela Villa Calcium [Mass/Vol] 9.2 mg/dL Normal 8.5-10.1 [facility] Comment on above: Performed By: #### B MP, LIVER #### [facility] [address] [place] [address] Dr. Marianela Villa Chloride [Moles/Vol] 103 mmol/L Normal 98-107 [facility] Comment on above: Performed By: #### B MP, LIVER #### [facility] [address] [place] [address] Dr. Marianela Villa CO2 [Moles/Vol] 28.0 mmol/L Normal 21.0-32.0 [facility] Comment on above: Performed By: #### B MP, LIVER #### [facility] [address] [place] [address] Dr. Marianela Villa Creatinine [Mass/Vol] 0.75 mg/dL Normal 0.55-1.02 [facility] Comment on above: Performed By: #### B MP, LIVER #### [facility] [address] [place] [address] Dr. Marianela Villa EGFR-AF [facility] [place] >60 Normal >=60 [facility] Comment on above: Performed By: #### B MP, LIVER #### [facility] [address] [place] [address] Dr. Marianela Villa EGFR-NON AF [facility] [place] >60 Normal >=60 [facility] Comment on above: Performed By: #### B MP, LIVER #### [facility] [address] [place] [address] Dr. Marianela Villa Glucose [Mass/Vol] 86 mg/dL Normal 74-106 [facility] Comment on above: Performed By: #### B MP, LIVER #### [facility] [address] [place] [address] Dr. Marianela Villa Potassium [Moles/Vol] 4.2 mmol/L Normal 3.5-5.1 [facility] Comment on above: Performed By: #### B MP, LIVER #### [facility] [address] [place] [address] Dr. Marianela Villa Sodium [Moles/Vol] 140 mmol/L Normal 136-145 [facility] Comment on above: Performed By: #### B MP, LIVER #### [facility] [address] [place] [address] Dr. Marianela Villa Urea nitrogen [Mass/Vol] 8.0 mg/dL Normal 7.0-18.0 [facility] Comment on above: Performed By: #### B MP, LIVER #### [facility] [address] [place] [address] Dr. Marianela Villa Urea nitrogen/Creatinin e [Mass ratio] 10.7 mg/mg Normal [facility] Comment on above: Performed By: #### B MP, LIVER #### [facility] [address] [place] [address] Dr. Marianela Villa PROTIMEon 07-01-2022 INR Coag (PPP) [Relative time] 1.00 {INR} Normal [facility] Comment on above: Performed By: #### C DANY, BUN #### [facility] [address] [place] [address] Dr. Marianela Villa INR GUIDELINES SEE BELOW Normal [facility] Comment on above: Result Comment: MCKENNA RED INR: 2.0 - 3.0 CONDITIONS NOT LISTED BELOW 2.5 - 3.5 FOR PROSTHETIC HEART VALVE REPLACEMENT 2.5 - 3.5 RECURRENT THROMBOSIS Performed By: #### C DANY BUN #### [facility] [address] [place] [address] Dr. Marianela Villa PT Coag (PPP) [Time] 10.6 s Normal 9.0-11.6 [facility] Comment on above: Performed By: #### C DANY BUN #### [facility] [address] [place] [address] Dr. Marianela Villa PTTon 07-01-2022 aPTT Coag (Bld) [Time] 25.0 s Normal 22.3-36.2 [facility] Comment on above: Performed By: #### C DANY BUN #### [facility] [address] [place] [address] Dr. Marianela Villa CBC AUTO DIFFon 05-05-2022 BASO # 0.0 103/ul Normal 0.0-0.1 [facility] Comment on above: Performed By: #### P REG #### [facility] [address] [place] [address] Dr. Marianela Villa Basophils/100 WBC (Bld) 0.4 % Normal 0.2-2.0 [facility] Comment on above: Performed By: #### P REG #### [facility] [address] [place] [address] Dr. Marianela Villa EO # 0.1 103/ul Normal 0.0-0.7 [facility] Comment on above: Performed By: #### P REG #### [facility] [address] [place] [address] Dr. Marianela Villa Eosinophils/100 WBC (Bld) 0.9 % Normal 0.9-7.0 [facility] Comment on above: Performed By: #### P REG #### [facility] [address] [place] [address] Dr. Marianela Villa Erythrocyte distribution width (RBC) [Ratio] 16.8 % Critically high 11.0-15.0 [facility] Comment on above: Performed By: #### P REG #### [facility] [address] [place] [address] Dr. Marianela Villa Hematocrit (Bld) [Volume fraction] 40.8 % Normal 36.0-48.0 [facility] Comment on above: Performed By: #### P REG #### [facility] [address] [place] [address] Dr. Marianela Villa Hemoglobin (Bld) [Mass/Vol] 13.0 g/dL Normal 12.0-16.0 [facility] Comment on above: Performed By: #### P REG #### [facility] [address] [place] [address] Dr. Marianela Villa IG # 0.02 10e3/ul Normal 0.00-0.03 [facility] Comment on above: Performed By: #### P REG #### [facility] [address] [place] [address] Dr. Marianela Villa IG % 0.3 % Normal 0.0-0.5 [facility] Comment on above: Performed By: #### P REG #### [facility] [address] [place] [address] Dr. Marianela Villa LYMPH # 1.6 103/ul Normal 1.2-3.8 [facility] Comment on above: Performed By: #### P REG #### [facility] [address] [place] [address] Dr. Marianela Villa Lymphocytes/100 WBC (Bld) 24.1 % Normal 20.5-60.0 [facility] Comment on above: Performed By: #### P REG #### [facility] [address] [place] [address] Dr. Marianela Villa MANUAL DIFF REQ NO Normal [facility] Comment on above: Performed By: #### P REG #### [facility] [address] [place] [address] Dr. Marianela Villa MCH (RBC) [Entitic mass] 30.3 pg Normal 26.7-34.0 [facility] Comment on above: Performed By: #### P REG #### [facility] [address] [place] [address] Dr. Marianela Villa MCHC (RBC) [Mass/Vol] 31.9 g/dL Normal 29.9-35.2 [facility] Comment on above: Performed By: #### P REG #### [facility] [address] [place] [address] Dr. Marianela Villa MCV (RBC) [Entitic vol] 95.1 fL Normal 81.0-99.0 [facility] Comment on above: Performed By: #### P REG #### [facility] [address] [place] [address] Dr. Marianela Villa MONO # 0.5 103/ul Normal 0.3-0.8 [facility] Comment on above: Performed By: #### P REG #### [facility] [address] [place] [address] Dr. Marianela Villa Monocytes/100 WBC (Bld) 7.6 % Normal 1.7-12.0 [facility] Comment on above: Performed By: #### P REG #### [facility] [address] [place] [address] Dr. Marianela Villa NEUT # 4.5 103/ul Normal 1.4-6.5 [facility] Comment on above: Performed By: #### P REG #### [facility] [address] [place] [address] Dr. Marianela Villa Neutrophils/100 WBC (Bld) 66.7 % Normal 43.0-75.0 [facility] Comment on above: Performed By: #### P REG #### [facility] [address] [place] [address] Dr. Marianela Villa Platelet mean volume (Bld) [Entitic vol] 10.0 fL Normal 9.5-13.5 [facility] Comment on above: Performed By: #### P REG #### [facility] [address] [place] [address] Dr. Marianela Villa PLT 253 103/ul Normal 150-450 [facility] Comment on above: Performed By: #### P REG #### [facility] [address] [place] [address] Dr. Marianela Villa RBC 4.29 106/ul Normal 4.20-5.40 [facility] Comment on above: Performed By: #### P REG #### [facility] [address], [place] [address] Dr. Marianela Villa WBC 6.8 103/ul Normal 4.0-11.0 [facility] Comment on above: Performed By: #### P REG #### [facility] [address], [place] [address] Dr. Marianela Villa FERRITINon 05-05-2022 Ferritin [Mass/Vol] 21.0 ng/mL Normal 6.2-137.0 [facility] Comment on above: Performed By: #### P REG #### [facility] [address], [place] [address] Dr. Marianela Villa IRONon 05-05-2022 Iron [Mass/Vol] 128.0 ug/dL Normal 50.0-170.0 [facility] Comment on above: Performed By: #### P REG #### [facility] [address] [place] [address] [address] Marianela Villa US VAC ASST BX BREAST RT W C LIPon 04-29-2022 US VAC ASST BX BREAST RT W CLIP Begin Addendum #1 COLLECTED DATE/TIME: 04/26/2022, 11:20 EST Final Diagnosis Report for [facility] [place] RIGHT BREAST 1 O'CLOCK MASS; BIOPSY: [...] after pathology results are available. Normal [facility] MAMMO POST BIOPSY RIGHTon MAMMO POST BIOPSY RIGHT Patient: ANTONIO MOY Exam Date: 04/26/2022 : 1985 Gender:F Ordering : YANG [facility] Admission #: [id number] Family : Order #: [id number] CLICK HERE TO VIEW EXAM RADIOLOGY REPORT [...] M.D. on 04/26/2022 at 13:55 Normal [facility] MG MAMM DIAGNOSTIC 3D SERVANDO CA Don 04-16-2022 MG MAMM DIAGNOSTIC 3D SERVANDO CAD Patient: ANTONIO MOY Exam Date: 04/16/2022 : 1985 Gender:F Ordering : YANG LINDACrispin [facility] Admission #: [id number] Family : Order #: [id number] CLICK HERE TO VIEW EXAM RADIOLOGY REPORT [...] leukemia cancer at age 1. LOCATION: [facility] BREAST COMPOSITION: Scattered areas fibroglandular density. FINDINGS: [...] M.D. on 04/16/2022 at 13:39 Normal [facility] US BREAST RIGHT LIMITEDon US BREAST RIGHT LIMITED Patient: ANTONIO MOY Exam Date: 04/16/2022 : 1985 Gender:F Ordering : YANG [facility] Admission #: [id number] Family : Order #: [id number] CLICK HERE TO VIEW EXAM RADIOLOGY REPORT [...] leukemia cancer at age 1. LOCATION: [facility] BREAST COMPOSITION: Scattered areas fibroglandular density. FINDINGS: [...] Dorantes M.D. on 04/16/2022 at 13:39 Normal [facility] US PELVIS [...] KIANA CHURCH Date: 2022-04-16 10:01 Normal [facility] General Surgery Office/Clini c Noteon 04-14-2022 General [...] mRNA-1273 vaccine 07/19/2020 Recorded 2022-03-03: TPVALL Normal [facility] Comment on above: Result Comment: Elec tronically Signed By: FAMILIA GUTIERREZ, Halley Smith\Date and Time Signed: 04/14/22 16:29 EST Reminderson 04-14-2022 Reminders - From: Rain Alcantar LPN To: GSN - Clinical; Sent: 04/14/2022 15:37:22 EST Show up: 03/07/2032 07:00:00 EST Subject: colonoscopy recall Due Date/Time: 04/07/2032 07:00:00 EST Reminder/Recall Patient is due for screening colonoscopy 04/07/2032. Normal [facility] Outside Colonoscopyon 2022 Outside Colonoscopy [id number]:127 Normal [facility] Pathology Noteon 04-09-2022 Pathology Note [id number]#[id number]:127 Normal [facility] PREG HCG QUALon 04-07-2022 , QUAL Negative Normal NEGATIVE [facility] Comment on above: Performed By: #### C BC #### [facility] [address] [place] [address] Dr. Marianela Villa Lab Reportson 04-01-2022 Lab Reports [id number]#[id number]:127 Normal [facility] Covid-19 PCR (CVDTBH)on 03-05 SARS-CoV-2 (COVID-19) RNA TERA+probe Ql (Unsp spec) Not detected Normal NOT DETECTED [facility] [...] for this test is supported by the Head Waiter/Waitress [employer] of Health and Human Service's (HHS's) declaration [...] SARS-CoV-2. Performed By: #### P REG #### [facility] [address] [place] [address] Dr. Marianela Villa PAP ACOG PANEL 2: 30 to 65on 03-21-2022 . . Normal [facility] Comment on above: Result Comment: Perf ormed at: WB Performed By: #### [id number] #### [facility] [address] [place] [address] Dr. Marianela Villa Age Gdln ACOG Testing 30-65 Normal [facility] Comment on above: Performed By: #### [id number] #### [facility] [address] [place] [address] Dr. Marianela Villa DIAGNOSIS: Comment Normal [facility] Comment on above: Result Comment: NEGA TIVE FOR INTRAEPITHELIAL LESION OR MALIGNANCY. Performed at: WB Performed By: #### [id number] #### [facility] [address] [address] [address] Marianela Villa HPV Aptima Negative Normal Negative [facility] Comment on above: Result Comment: This nucleic acid amplification test detects fourteen high-risk HPV types (16,18,31,33,35,39,45,51,52,56,58,59,66,68) without differentiation. Performed at: =G Performed By: #### [id number] #### [facility] [address] [place] [address] Dr. Marianela Villa HPV Genotype Reflex Comment Normal [facility] Comment on above: Result Comment: Crit eria not met, HPV Genotype not performed. Performed at: WB Performed By: #### [id number] #### [facility] [address] [place] [address] Dr. Marianela Villa Methodology: Comment [facility] Comment on above: Result Comment: This liquid based ThinPrep(R) pap test was screened with the use of an image guided system. Performed at: WB Performed By: #### [id number] #### [facility] [address] [place] [address] Dr. Marianela Villa Note: Comment Normal [facility] [...] Performed at: WB Performed By: #### [id number] #### [facility] [address] [place] [address] Dr. Marianela Villa Performed by: Comment Normal [facility] Comment on above: Result Comment: Nancy Leslie, Induction Machine Setter (ASCP) Performed at: WB Performed By: #### [id number] #### [facility] [address] [place] [address] Dr. Marianela Villa Specimen adequacy: Comment Normal [facility] Comment on above: Result Comment: Sati sfactory for evaluation. No endocervical component is identified. Performed at: WB Performed By: #### [id number] #### [facility] [address] [place] [address] Dr. Marianela Villa Pre-Certification Formon Pre-Certification Form [id number]:127 Normal [facility] Facesheeton 03-09-2022 Facesheet [id number]:127 Normal [facility] Patient Correspondenceon Patient Correspondence [id number]:127 Normal [facility] Consent for Procedure/Surger yon 03-08-2022 Consent for Procedure/Surgery [id number]:127 Normal [facility] CBC AUTO DIFFon 03-01-2022 BASO # 0.0 103/ul Normal 0.0-0.1 [facility] Comment on above: Performed By: #### C BC #### [facility] [address] [place] [address] Dr. Marianela Villa Basophils/100 WBC (Bld) 0.5 % Normal 0.2-2.0 [facility] Comment on above: Performed By: #### C BC #### [facility] [address] [place] [address] Dr. Marianela Villa EO # 0.1 103/ul Normal 0.0-0.7 [facility] Comment on above: Performed By: #### C BC #### [facility] [address] [place] [address] Dr. Marianela Villa Eosinophils/100 WBC (Bld) 1.3 % Normal 0.9-7.0 [facility] Comment on above: Performed By: #### C BC #### [facility] [address] [place] [address] Dr. Marianela Villa Erythrocyte distribution width (RBC) [Ratio] 25.9 % Critically high 11.0-15.0 [facility] Comment on above: Performed By: #### C BC #### [facility] [address] [place] [address] Dr. Marianela Villa Hematocrit (Bld) [Volume fraction] 36.4 % Normal 36.0-48.0 [facility] Comment on above: Performed By: #### C BC #### [facility] [address] [place] [address] Dr. Marianela Villa Hemoglobin (Bld) [Mass/Vol] 11.5 g/dL Critically low 12.0-16.0 [facility] Comment on above: Performed By: #### C BC #### [facility] [address] [place] [address] Dr. Marianela Villa IG # 0.01 10e3/ul Normal 0.00-0.03 [facility] Comment on above: Performed By: #### C BC #### [facility] [address] [place] [address] Dr. Marianela Villa IG % 0.2 % Normal 0.0-0.5 [facility] Comment on above: Performed By: #### C BC #### [facility] [address] [place] [address] Dr. Marianela Villa LYMPH # 1.7 103/ul Normal 1.2-3.8 [facility] Comment on above: Performed By: #### C BC #### [facility] [address] [place] [address] Dr. Marianela Villa Lymphocytes/100 WBC (Bld) 31.4 % Normal 20.5-60.0 [facility] Comment on above: Performed By: #### C BC #### [facility] [address] [place] [address] Dr. Marianela Villa MANUAL DIFF REQ NO Normal [facility] Comment on above: Performed By: #### C BC #### [facility] [address] [place] [address] Dr. Marianela Villa MCH (RBC) [Entitic mass] 26.6 pg Critically low 26.7-34.0 [facility] Comment on above: Performed By: #### C BC #### [facility] [address] [place] [address] Dr. Marianela Villa MCHC (RBC) [Mass/Vol] 31.6 g/dL Normal 29.9-35.2 [facility] Comment on above: Performed By: #### C BC #### [facility] [address] [place] [address] Dr. Marianela Villa MCV (RBC) [Entitic vol] 84.1 fL Normal 81.0-99.0 [facility] Comment on above: Performed By: #### C BC #### [facility] [address] [place] [address] Dr. Marianela Villa MONO # 0.4 103/ul Normal 0.3-0.8 [facility] Comment on above: Performed By: #### C BC #### [facility] [address] [place] [address] Dr. Marianela Villa Monocytes/100 WBC (Bld) 7.6 % Normal 1.7-12.0 [facility] Comment on above: Performed By: #### C BC #### [facility] [address] [place] [address] Dr. Marianela Villa NEUT # 3.3 103/ul Normal 1.4-6.5 [facility] Comment on above: Performed By: #### C BC #### [facility] [address] [place] [address] Dr. Marianela Villa Neutrophils/100 WBC (Bld) 59.0 % Normal 43.0-75.0 [facility] Comment on above: Performed By: #### C BC #### [facility] [address] [place] [address] Dr. Marianela Villa Platelet mean volume (Bld) [Entitic vol] 11.2 fL Normal 9.5-13.5 [facility] Comment on above: Performed By: #### C BC #### [facility] [address] [place] [address] Dr. Marianela Villa PLT 297 103/ul Normal 150-450 [facility] Comment on above: Performed By: #### C BC #### [facility] [address] [place] [address] Dr. Marianela Villa RBC 4.33 106/ul Normal 4.20-5.40 [facility] Comment on above: Performed By: #### C BC #### [facility] [address] [place] [address] Dr. Marianela Villa WBC 5.5 103/ul Normal 4.0-11.0 [facility] Comment on above: Performed By: #### C BC #### [facility] [address] [place] [address] Dr. Marianela Villa CBC AUTO DIFFon 02-18-2022 BASO # 0.0 103/ul Normal 0.0-0.1 [facility] Comment on above: Performed By: #### P REG #### [facility] [address] [place] [address] Dr. Marianela Villa Basophils/100 WBC (Bld) 0.3 % Normal 0.2-2.0 [facility] Comment on above: Performed By: #### P REG #### [facility] [address] [place] [address] Dr. Marianela Villa EO # 0.1 103/ul Normal 0.0-0.7 [facility] Comment on above: Performed By: #### P REG #### [facility] [address] [place] [address] Dr. Marianela Villa Eosinophils/100 WBC (Bld) 1.0 % Normal 0.9-7.0 [facility] Comment on above: Performed By: #### P REG #### [facility] [address] [place] [address] Dr. Marianela Villa Erythrocyte distribution width (RBC) [Ratio] 25.0 % Critically high 11.0-15.0 [facility] Comment on above: Performed By: #### P REG #### [facility] [address] [place] [address] Dr. Marianela Villa Hematocrit (Bld) [Volume fraction] 34.9 % Critically low 36.0-48.0 [facility] Comment on above: Performed By: #### P REG #### [facility] [address] [place] [address] Dr. Marianela Villa Hemoglobin (Bld) [Mass/Vol] 10.6 g/dL Critically low 12.0-16.0 [facility] Comment on above: Performed By: #### P REG #### [facility] [address] [place] [address] Dr. Marianela Villa IG # 0.02 10e3/ul Normal 0.00-0.03 [facility] Comment on above: Performed By: #### P REG #### [facility] [address] [place] [address] Dr. Marianela Villa IG % 0.3 % Normal 0.0-0.5 [facility] Comment on above: Performed By: #### P REG #### [facility] [address] [place] [address] Dr. Marianela Villa LYMPH # 1.8 103/ul Normal 1.2-3.8 [facility] Comment on above: Performed By: #### P REG #### [facility] [address] [place] [address] Dr. Marianela Villa Lymphocytes/100 WBC (Bld) 26.0 % Normal 20.5-60.0 [facility] Comment on above: Performed By: #### P REG #### [facility] [address] [place] [address] Dr. Marianela Villa MANUAL DIFF REQ NO Normal [facility] Comment on above: Performed By: #### P REG #### [facility] [address] [place] [address] Dr. Marianela Villa MCH (RBC) [Entitic mass] 24.9 pg Critically low 26.7-34.0 [facility] Comment on above: Performed By: #### P REG #### [facility] [address] [address] [address] Marianela Villa MCHC (RBC) [Mass/Vol] 30.4 g/dL Normal 29.9-35.2 [facility] Comment on above: Performed By: #### P REG #### [facility] [address] [address] [address] Marianela Villa MCV (RBC) [Entitic vol] 81.9 fL Normal 81.0-99.0 [facility] Comment on above: Performed By: #### P REG #### [facility] [address] [place] [address] Dr. Marianela Villa MONO # 0.4 103/ul Normal 0.3-0.8 [facility] Comment on above: Performed By: #### P REG #### [facility] [address] [place] [address] Dr. Marianela Villa Monocytes/100 WBC (Bld) 5.5 % Normal 1.7-12.0 [facility] Comment on above: Performed By: #### P REG #### [facility] [address] [place] [address] Dr. Marianela Villa NEUT # 4.5 103/ul Normal 1.4-6.5 [facility] Comment on above: Performed By: #### P REG #### [facility] [address] [place] [address] Dr. Marianela Villa Neutrophils/100 WBC (Bld) 66.9 % Normal 43.0-75.0 [facility] Comment on above: Performed By: #### P REG #### [facility] [address] [place] [address] Dr. Marianela Villa Platelet mean volume (Bld) [Entitic vol] 11.1 fL Normal 9.5-13.5 [facility] Comment on above: Performed By: #### P REG #### [facility] [address] [place] [address] Dr. Marianela Villa PLT 198 103/ul Normal 150-450 [facility] Comment on above: Performed By: #### P REG #### [facility] [address] [place] [address] Dr. Marianela Villa RBC 4.26 106/ul Normal 4.20-5.40 [facility] Comment on above: Performed By: #### P REG #### [facility] [address] [place] [address] Dr. Marianela Villa WBC 6.8 103/ul Normal 4.0-11.0 [facility] Comment on above: Performed By: #### P REG #### [facility] [address] [place] [address] Dr. Marianela Villa IRONon 02-18-2022 Iron [Mass/Vol] 57.0 ug/dL Normal 50.0-170.0 [facility] Comment on above: Performed By: #### C DANY, BUN #### [facility] [address] [place] [address] Dr. Marianela Villa OCC BLD IMMUNO SCREENon OCCULT BLOOD Negative Normal NEGATIVE [facility] Comment on above: Performed By: #### O BSCRN #### [facility] [address] [place] [address] Dr. Marianela Villa Physician Referralon 022 Physician Referral [id number] Normal [facility] CBC AUTO DIFFon 02-02-2022 BASO # 0.0 103/ul Normal 0.0-0.1 [facility] Comment on above: Performed By: #### C BC #### [facility] [address] [place] [address] Dr. Marianela Villa Basophils/100 WBC (Bld) 0.4 % Normal 0.2-2.0 [facility] Comment on above: Performed By: #### C BC #### [facility] [address] [place] [address] Dr. Marianela Villa EO # 0.1 103/ul Normal 0.0-0.7 [facility] Comment on above: Performed By: #### C BC #### [facility] [address] [place] [address] Dr. Marianela Villa Eosinophils/100 WBC (Bld) 1.3 % Normal 0.9-7.0 [facility] Comment on above: Performed By: #### C BC #### [facility] [address] [place] [address] Dr. Marianela Villa Erythrocyte distribution width (RBC) [Ratio] 17.7 % Critically high 11.0-15.0 [facility] Comment on above: Performed By: #### C BC #### [facility] [address] [place] [address] Dr. Marianela Villa Hematocrit (Bld) [Volume fraction] 30.3 % Critically low 36.0-48.0 [facility] Comment on above: Performed By: #### C BC #### [facility] [address] [place] [address] Dr. Marianela Villa Hemoglobin (Bld) [Mass/Vol] 9.1 g/dL Critically low 12.0-16.0 [facility] Comment on above: Performed By: #### C BC #### [facility] [address] [place] [address] Dr. Marianela Villa IG # 0.01 10e3/ul Normal 0.00-0.03 [facility] Comment on above: Performed By: #### C BC #### [facility] [address] [place] [address] Dr. Marianela Villa IG % 0.1 % Normal 0.0-0.5 [facility] Comment on above: Performed By: #### C BC #### [facility] [address] [place] [address] Dr. Marianela Villa LYMPH # 1.9 103/ul Normal 1.2-3.8 [facility] Comment on above: Performed By: #### C BC #### [facility] [address] [place] [address] Dr. Marianela Villa Lymphocytes/100 WBC (Bld) 28.6 % Normal 20.5-60.0 [facility] Comment on above: Performed By: #### C BC #### [facility] [address] [place] [address] Dr. Marianela Villa MANUAL DIFF REQ NO Normal [facility] Comment on above: Performed By: #### C BC #### [facility] [address] [place] [address] Dr. Marianela Villa MCH (RBC) [Entitic mass] 23.3 pg Critically low 26.7-34.0 [facility] Comment on above: Performed By: #### C BC #### [facility] [address] [place] [address] Dr. Marianela Villa MCHC (RBC) [Mass/Vol] 30.0 g/dL Normal 29.9-35.2 [facility] Comment on above: Performed By: #### C BC #### [facility] [address] [place] [address] Dr. Marianela Villa MCV (RBC) [Entitic vol] 77.5 fL Critically low 81.0-99.0 [facility] Comment on above: Performed By: #### C BC #### [facility] [address] [place] [address] Dr. Marianela Villa MONO # 0.5 103/ul Normal 0.3-0.8 [facility] Comment on above: Performed By: #### C BC #### [facility] [address] [place] [address] Dr. Marianela Villa Monocytes/100 WBC (Bld) 6.7 % Normal 1.7-12.0 [facility] Comment on above: Performed By: #### C BC #### [facility] [address] [place] [address] Dr. Marianela Villa NEUT # 4.2 103/ul Normal 1.4-6.5 [facility] Comment on above: Performed By: #### C BC #### [facility] [address] [place] [address] Dr. Marianela Villa Neutrophils/100 WBC (Bld) 62.9 % Normal 43.0-75.0 [facility] Comment on above: Performed By: #### C BC #### [facility] [address] [address] [address] Marianela Villa Platelet mean volume (Bld) [Entitic vol] 11.0 fL Normal 9.5-13.5 [facility] Comment on above: Performed By: #### C BC #### [facility] [address] [place] [address] Dr. Marianela Villa PLT 284 103/ul Normal 150-450 [facility] Comment on above: Performed By: #### C BC #### [facility] [address] [place] [address] Dr. Marianela Villa RBC 3.91 106/ul Critically low 4.20-5.40 [facility] Comment on above: Performed By: #### C BC #### [facility] [address] [place] [address] Dr. Marianela Villa WBC 6.7 103/ul Normal 4.0-11.0 [facility] Comment on above: Performed By: #### C BC #### [facility] [address] [place] [address] Dr. Marianela Villa CRPon 02-02-2022 CRP [Mass/Vol] mg/L Normal <=1.0 [facility] Comment on above: Performed By: #### C DANY BUN #### [facility] [address] [place] [address] Dr. Marianela Villa FREE T3on 02-02-2022 FREE T3 2.06 pg/mlL Critically low 2.18-3.98 [facility] Comment on above: Performed By: #### C DANY BUN #### [facility] [address] [place] [address] Dr. Marianela Villa FREE T4on 02-02-2022 Free T4 [Mass/Vol] 0.89 ng/dL Normal 0.76-1.46 [facility] Comment on above: Performed By: #### P REG #### [facility] [address] [place] [address] Dr. Marianela Villa GLYCOHEMOGLOBIN A1Con 2021 ADA RECOMMENDATION SEE BELOW Normal [facility] Comment on above: Result Comment: ADA RECOMMENDED LIMIT 4.0 - 6.0 ADA THERAPEUTIC TARGET < 7.0 ACTION SUGGESTED > 7.0 Performed By: #### C DANY BUN #### [facility] [address] [place] [address] Dr. Marianela Villa Glucose [Mass/Vol] 131 mg/dL Normal [facility] Comment on above: Performed By: #### C DANY BUN #### [facility] [address] [address] [address] Marianela Villa HbA1c (Bld) [Mass fraction] 6.2 % Normal 4.5-6.2 [facility] Comment on above: Performed By: #### C DANY BUN #### [facility] [address] [place] [address] Dr. Marianela Villa IRONon 02-02-2022 Iron [Mass/Vol] 15.0 ug/dL Critically low 50.0-170.0 [facility] Comment on above: Performed By: #### P REG #### [facility] [address] [place] [address] Dr. Marianela Villa LIPID PROFILEon 02-02-2022 CHOL-HDL RATIO NORM SEE BELOW Normal [facility] Comment on above: Result Comment: 3.3 - 4.4 LOW RISK 4.4 - 7.1 AVERAGE RISK 7.1 - 11.0 MODERATE RISK >11.0 HIGH RISK Performed By: #### C DANY BUN #### [facility] [address] [place] [address] Dr. Marianela Villa Cholesterol [Mass/Vol] 187 mg/dL Normal <=200 [facility] Comment on above: Performed By: #### C DANY BUN #### [facility] [address] [place] [address] Dr. Marianela Villa Cholesterol in HDL [Mass/Vol] 56 mg/dL Normal 40-60 [facility] Comment on above: Performed By: #### C DANY BUN #### [facility] [address] [place] [address] Dr. Marianela Villa Cholesterol in LDL [Mass/Vol] 114.6 mg/dL Normal [facility] Comment on above: Performed By: #### C DANY, BUN #### [facility] [address] [address] [address] Marianela Villa Cholesterol.total/ Cholesterol in HDL [Mass ratio] 3.3 {ratio} Normal [facility] Comment on above: Performed By: #### C DANY, BUN #### [facility] [address] [address] [address] Marianela Villa HDL NORMAL > or = 60 mg/dl - LO W CARDIOVASCULAR RISK <40 mg/dl - HIGH CARDIOVASCULAR RISK Normal [facility] Comment on above: Performed By: #### C DANY BUN #### [facility] [address] [place] [address] Dr. Marianela Villa LDL CALC NORMAL SEE BELOW Normal [facility] Comment on above: Result Comment: <100 mg/dl OPTIMAL 100 - 129 mg/dl NEAR OR ABOVE OPTIMAL 130 - 159 mg/dl BORDERLINE HIGH 160 - 189 mg/dl HIGH >190 mg/dl VERY HIGH Performed By: #### C DANY, BUN #### [facility] [address] [place] [address] Dr. Marianela Villa Triglyceride [Mass/Vol] 82 mg/dL Normal <=150 [facility] Comment on above: Performed By: #### C DANY, BUN #### [facility] [address] [place] [address] Dr. Marianela Villa VLDL CALC 16.4 mg/dL Normal [facility] Comment on above: Performed By: #### C DANY, BUN #### [facility] [address] [place] [address] Dr. Marianela Villa MAGNESIUMon 02-02-2022 Magnesium [Mass/Vol] 2.0 mg/dL Normal 1.8-2.4 [facility] Comment on above: Performed By: #### C DANY, BUN #### [facility] [address] [place] [address] Dr. Marianela Villa PREG HCG QUALon 02-02-2022 , QUAL Negative Normal NEGATIVE [facility] Comment on above: Performed By: #### P REG #### [facility] [address] [address] [address] Marianela Villa PROF 14(COMP METB)on 022 Albumin [Mass/Vol] 4.0 g/dL Normal 3.4-5.0 [facility] Comment on above: Performed By: #### C DANY, BUN #### [facility] [address] [address] [address] Marianela Villa Albumin/Globulin [Mass ratio] 1.0 {ratio} Normal [facility] Comment on above: Performed By: #### C DANY, BUN #### [facility] [address] [address] [address] Marianela Villa ALP [Catalytic activity/Vol] 173 U/L Critically high 46-116 [facility] Comment on above: Performed By: #### C DANY, BUN #### [facility] [address] [place] [address] Dr. Marianela Villa ALT [Catalytic activity/Vol] 45 U/L Normal 14-59 [facility] Comment on above: Performed By: #### C DANY, BUN #### [facility] [address] [address] [address] Marianela Villa Anion gap [Moles/Vol] 12.9 mmol/L Normal [facility] Comment on above: Performed By: #### C DANY, BUN #### [facility] [address] [address] [address] Marianela Villa AST [Catalytic activity/Vol] 35 U/L Normal 15-37 [facility] Comment on above: Performed By: #### C DANY, BUN #### [facility] [address] [address] [address] Marianela Villa Bilirubin [Mass/Vol] 0.3 mg/dL Normal 0.2-1.0 [facility] Comment on above: Performed By: #### C DANY, BUN #### [facility] [address] [address] [address] Marianela Villa Calcium [Mass/Vol] 9.1 mg/dL Normal 8.5-10.1 [facility] Comment on above: Performed By: #### C DANY, BUN #### [facility] [address] [address] [address] Marianela Villa Chloride [Moles/Vol] 103 mmol/L Normal 98-107 [facility] Comment on above: Performed By: #### C DANY, BUN #### [facility] [address] [address] [address] Marianela Villa CO2 [Moles/Vol] 27.0 mmol/L Normal 21.0-32.0 [facility] Comment on above: Performed By: #### C DANY, BUN #### [facility] [address] [address] [address] Marianela Villa Creatinine [Mass/Vol] 0.70 mg/dL Normal 0.55-1.02 [facility] Comment on above: Performed By: #### C DANY, BUN #### [facility] [address] [address] [address] Marianela Villa EGFR-AF [facility] HELENIAN >60 Normal >=60 [facility] Comment on above: Performed By: #### C DANY, BUN #### [facility] [address] [address] [address] Marianela Villa EGFR-NON AF [facility] >60 Normal >=60 [facility] Comment on above: Performed By: #### C DANY, BUN #### [facility] [address] [address] [address] Marianela Villa Globulin (S) [Mass/Vol] 3.9 g/dL Normal [facility] Comment on above: Performed By: #### C DANY, BUN #### [facility] [address] [address] [address] Marianela Villa Glucose [Mass/Vol] 88 mg/dL Normal 74-106 [facility] Comment on above: Performed By: #### C DANY, BUN #### [facility] [address] [address] [address] Marianela Villa Potassium [Moles/Vol] 3.9 mmol/L Normal 3.5-5.1 [facility] Comment on above: Performed By: #### C DANY, BUN #### [facility] [address] [place] [address] Dr. Marianela Villa Protein [Mass/Vol] 7.9 g/dL Normal 6.4-8.2 [facility] Comment on above: Performed By: #### C DANY, BUN #### [facility] [address] [place] [address] Dr. Marianela Villa Sodium [Moles/Vol] 139 mmol/L Normal 136-145 [facility] Comment on above: Performed By: #### C DANY, BUN #### [facility] [address] [place] [address] Dr. Marianela Villa Urea nitrogen [Mass/Vol] 6.0 mg/dL Critically low 7.0-18.0 [facility] Comment on above: Performed By: #### C DANY, BUN #### [facility] [address] [place] [address] Dr. Marianela Villa Urea nitrogen/Creatinin e [Mass ratio] 8.6 mg/mg Normal [facility] Comment on above: Performed By: #### C DANY, BUN #### [facility] [address] [place] [address] Dr. Marianela Villa SED RATE [facility] 2021 SED RATE 49 mm/hr Critically high <=20 [facility] Comment on above: Performed By: #### C BC #### [facility] [address] [place] [address] Dr. Marianela Villa TSHon 02-02-2022 TSH 1.378 uIU/mL Normal 0.358-3.740 [facility] Comment on above: Performed By: #### C DANY, BUN #### [facility] [address] [place] [address] Dr. Marianela Villa UA RANDOM W/MICROSCOPICon BACTERIA NONE SEEN Normal NONE SEEN [facility] Comment on above: Performed By: #### P REG #### [facility] [address] [place] [address] Dr. Marianela Villa Bilirubin Ql (U) Negative Normal NEGATIVE [facility] [place] Comment on above: Performed By: #### P REG #### [facility] [address] [address] [address] Marianela Villa CAST NONE SEEN Normal NONE SEEN [facility] Comment on above: Performed By: #### P REG #### [facility] [address] [place] [address] Dr. Marianela Villa Clarity (U) CLEAR Normal CLEAR [facility] Comment on above: Performed By: #### P REG #### [facility] [address] [address] [address] Marianela Villa Color (U) LT. YELLOW Normal YELLOW [facility] Comment on above: Performed By: #### P REG #### [facility] [address] [place] [address] Dr. Marianela Villa Crystals LM Nom (Urine sed) NONE SEEN Normal NONE SEEN [facility] Comment on above: Performed By: #### P REG #### [facility] [address] [place] [address] Dr. Marianela Villa Epithelial cells LM Ql (Urine sed) FEW Abnormal NONE SEEN /RARE [facility] Comment on above: Performed By: #### P REG #### [facility] [address] [place] [address] Dr. Marianela Villa Glucose Ql (U) Negative Normal NEGATIVE [facility] Comment on above: Performed By: #### P REG #### [facility] [address] [place] [address] Dr. Marianela Villa Hemoglobin Ql (U) Negative Normal NEGATIVE [facility] Comment on above: Performed By: #### P REG #### [facility] [address] [address] [address] Marianela Villa Ketones Ql (U) Negative Normal NEGATIVE [facility] Comment on above: Performed By: #### P REG #### [facility] [address] [place] [address] Dr. Marianela Villa LEUKOCYTES Negative Normal NEGATIVE [facility] Comment on above: Performed By: #### P REG #### [facility] [address] [place] [address] Dr. Marianela Villa MUCOUS NONE SEEN Normal NONE SEEN [facility] Comment on above: Performed By: #### P REG #### [facility] [address] [place] [address] Dr. Marianela Villa Nitrite Ql (U) Negative Normal NEGATIVE [facility] Comment on above: Performed By: #### P REG #### [facility] [address] [place] [address] Dr. Marianela Villa pH (U) 6.5 [pH] Normal 5-9 [facility] Comment on above: Performed By: #### P REG #### [facility] [address] [place] [address] Dr. Marianela Villa RBC NONE SEEN Abnormal 0-2 [facility] Comment on above: Performed By: #### P REG #### [facility] [address] [place] [address] Dr. Marianela Villa SPEC GRAVITY <=1.005 Abnormal 1.005-<=1.0 25 [facility] Comment on above: Performed By: #### P REG #### [facility] [address] [place] [address] Dr. Marianela Villa UA PROTEIN Negative Normal NEGATIVE/ TRACE [facility] Comment on above: Performed By: #### P REG #### [facility] [address] [place] [address] Dr. Marianela Villa Urobilinogen Qn (U) 0.2 {Trish'U}/dL Normal 0.2 - 1.0 [facility] Comment on above: Performed By: #### P REG #### [facility] [address] [place] [address] Dr. Marianela Villa WBC NONE SEEN Normal NONE SEEN [facility] Comment on above: Performed By: #### P REG #### [facility] [address] [place] [address] Dr. Marianela Villa VITAMIN B12on 02-02-2022 Cobalamin (Vitamin B12) [Mass/Vol] 630.0 pg/mL Normal 193.0-986.0 [facility] Comment on above: Performed By: #### P REG #### [facility] [address] [place], [place] [address] Dr. Marianela Villa VITAMIN D 25 OHon 02-02-2022 VIT D 25-OH 42.7 ng/mL Normal [facility] Comment on above: Performed By: #### P REG #### [facility] [address], [place] [address] Dr. Marianela Villa VIT D RANGES SEE BELOW Normal [facility] Comment on above: Result Comment: <20 ng/mL Vit D deficient 20 - <30 ng/mL Vit D insufficient 30 - 100 ng/mL Vit D sufficient >100 ng/mL Potential Toxicity Performed By: #### P REG #### [facility] [id number] Marianela Villa [facility] Lab Reporton 01-02-2018 Report Normal [facility] Comment on above: Performed By: #### D NASTUDY #### Performed at [facility], [address] [place] [id number] Vital Signs Date Time Vital Sign Value Performing Clinician Faci lity 03-05-2022 13:19-0500 Blood Pressure Location [facility] [facility] [place] 03-05-2022 13:19-0500 Diastolic blood pressure 76 mm[Hg] mmCHANNELL [facility] [place] 03-05-2022 13:19-0500 Heart rate 70 /min [email or web address] [facility] [place] 03-05-2022 13:19-0500 Respiratory rate 16 /min mmCHANNELL [facility] [place] 03-05-2022 13:19-0500 Systolic blood pressure 120 mm[Hg] [facility] [facility] [place] Encounters Encounter Date Encounter Type Care Provider Facility Start: 12-14-2023 End: 12-14-2023 ambulatory LINDA REDMOND Not Available Start: 12-01-2023 End: 12-01-2023 ambulatory ABBIE BRANDT Not Available Start: 11-07-2023 End: 11-07-2023 ambulatory DYLAN RAJAN Not Available Start: 10-03-2023 End: 10-03-2023 ambulatory DYLAN RAJAN Not Available Start: 09-29-2023 End: 09-29-2023 ambulatory LINDA EDILMAEMELYZ Not Available Start: 08-31-2023 End: 08-31-2023 ambulatory LINDA AICHHOLZ Not Available Start: 07-19-2022 Encounter for preprocedural laboratory examination DR DYLAN RAJAN . 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 [facility] Start: 07-09-2022 Encounter for preprocedural laboratory examination DR DYLAN RAJAN . [facility] Start: 07-01-2022 End: 07-02-[address] DYLAN RAJAN . Facility:[facility] Start: 07-01-2022 End: 07-02-2022 Encounter for preprocedural cardiovascular examination DR DYLAN RAJAN . Facility:[facility] Start: 05-05-2022 End: 05-06-2022 ambulatory TREASURY ACCOUNTANT LINDA EDILMAEMELYZ Facility:[facility] Start: 04-26-2022 End: 04-26-2022 ambulatory TREASURY ACCOUNTANT LINDA EDILMAEMELYZ Facility:[facility] Start: 04-16-2022 End: 04-17-2022 ambulatory TREASURY ACCOUNTANT LINDA EDILMAHOLZ Facility:[facility] Start: 04-14-2022 End: 04-15-2022 ambulatory Halley BARBOSA Facility:[facility] Start: 04-14-2022 End: 04-14-2022 Patient encounter procedure Halley BARBOSA [facility] Start: 04-07-2022 End: 04-08-2022 ambulatory Halley BARBOSA Facility::[id number] Start: 03-31-2022 End: 04-01-[address] HALLEY BARBOSA . Facility:[facility] Start: 03-11-2022 End: 03-11-2022 ambulatory YANG LERNER IVANAlexREI Facility:[facility] Start: 03-05-2022 End: 03-06-2022 ambulatory Halley BARBOSA Facility:[facility] Start: 03-05-2022 End: 03-05-2022 Patient encounter procedure Halley BARBOSA General Surgery Fam[facility]/Richie [facility] Start: 03-01-2022 End: 03-02-2022 ambulatory YANG REDMOND Facility:[facility] Start: 02-18-2022 End: 02-19-2022 ambulatory YANG REDMOND Facility:[facility] Start: 02-04-2022 End: 02-04-2022 ambulatory YANG FRANCEEMELYJamila Facility:[facility] Start: 02-03-2022 ambulatory Halley BARBOSA [facility] Start: 02-02-2022 End: 02-03-2022 ambulatory YANG REDMOND Facility:[facility] Start: 01-02-2018 Patient encounter procedure NO PCP [facility] Procedures Date Procedure Procedure Detail Performing Clinician Start: 04-07-2022 Colonoscopy Hlaley ARCHULETA Start: 04-07-2022 Esophagogastroduodenoscopy Halley BARBOSA Start: 04-04-2008 section Tara BARBOSA Start: 04-04-2007 section Tara BARBOSA Extraction of wisdom tooth M kermit FAMILIA Immunizations Immunization Date Immunization Notes Care Provider Fa cility 08-16-2020 SARS-CoV-2 (COVID-19 ) mRNA-2203 vaccine Halley BARBOSA [facility] Comment on above: Result Comment: 2021: TPVALL 07-19-2020 SARS-CoV-2 (COVID-19 ) mRNA-9813 vaccine Halley BARBOSA [facility] [place] Comment on above: Result Comment: 2021: TPVALL NEGATED: Highlighted row has not occurred!03-05-2022 influenza virus vaccine, unspecified formulation Halley BARBOSA [facility] [place] Payers Date Payer Category Payer Unknown [id number] 2.16.8 [id number] 1983 Unknown [id number] 2.16.8 [id number] 1983 Unknown [id number] 2.16.8 40.1.946343.3.579.2.727 1983 Unknown [id number] 2.16.84 0.1.292408.3.579.2.593 1983 Unknown [id number] 2.16.84 0.1.992813.3.579.2.593 1983 Unknown [id number] 2.16.84 0.1.929302.3.579.2.593 1983 Unknown [id number] 2.16.84 0.1.497701.3.579.2.593 1983 Unknown [id number] 2.16.84 0.1.731087.3.579.2.593 1983 Unknown [id number] 2.16.84 0.1.144376.3.579.2.593 1983 Unknown [id number] 2.16.84 0.1.340064.3.579.2.593 1983 Unknown [id number] 2.16.84 0.1.074253.3.579.2.593 1983 Unknown [id number] 2.16.84 0.1.927405.3.579.2.593 1983 Unknown [id number] 2.16.84 0.1.332898.3.579.2.593 1983 Unknown [id number] 2.16.84 0.1.889999.3.579.2.593 1983 Unknown [id number] 2.16.84 0.1.779252.3.579.2.593 1983 Unknown [id number] 2.16.84 0.1.150112.3.579.2.593 1983 Unknown [id number] 2.16.84 0.1.479544.3.579.2.1259 1983 Unknown [id number] 2.16.84 0.1.414388.3.579.2.9 1983 Unknown [id number] 2.16.84 0.1.336969.3.579.2.9 1983 Unknown [id number] 2.16.84 0.1.081948.3.579.2.9 1983 Unknown [id number] 2.16.84 0.1.400062.3.579.2.1259 1983 Unknown [id number] 2.16.84 0.1.021494.3.579.2.1259 1959 Private Health Insurance [id number] Social History Date Type Detail Facility Start: 03-05-2022 Tobacco smoking status Never s moked tobacco (finding) [facility] [place] Tobacco smoking status Never [facility] [place] Sex Assigned At Female [facility] Functional Status Date Assessment Result Facility 03-05-2022 Functional Status N/A [facility] Clinical Note 07-16-2022 Note Date & Type Note Facility 07-16-2022 Note OP Note OPERATION DATE: 07/16/2022 ADDENDUM: Please note that a left ovarian cystectomy was performed using the LigaSure apparatus. [facility] Clinical Note 07-16-2022 Note Date & Type Note Facility 07-16-2022 Note OPERATIVE NOTE OPERATION DATE: 07/26/2022 PROCEDURE: Robotic assisted laparoscopic hysterectomy with right salpingectomy, left cystectomy of endometrioma and cystoscopy. PREOPERATIVE DIAGNOSIS: Menorrhagia, dysmenorrhea, pelvic pain, dyspareunia. POSTOPERATIVE DIAGNOSIS: Menorrhagia, dysmenorrhea, pelvic pain, dyspareunia including a left ovarian endometrioma. ANESTHESIA: General. SURGEON: Dylan Rajan D.O. DROP FORGER HELPER: PJ Quevedo URINE OUTPUT: Yellow and clear. [...] Anesthesia first. Patient tolerated procedure well. [facility] Clinical Note 04-07-2022 Note Date & Type [...] pathology results. CC: Linda Redmond, YANG [facility] Clinical Note 03-05-2022 Note Date & Type [...] (COVID-19) mRNA-1273 vaccine 07/19/2020 Recorded 2022-03-03: TPVALL [facility] Comment on above: Result Comment: Elec tronically Signed By: FAMILIA GUTIERREZ, Halley Simth\Date and Time Signed: 03/05/22 13:57 EST Evaluation [...] section and content) DATE CREATED AUTHOR 05/16/2018 [facility] DATE CREATED AUTHOR AUTHOR'S ORGANIZ ATION 04/17/2022 [facility] DATE CREATED AUTHOR AUTHOR'S ORGANIZ ATION 08/03/2022 [facility] DATE CREATED AUTHOR AUTHOR'S ORGANIZ ATION 12/16/2023 [facility] EPIC Patient Care team informatio n (unrecognized section and content) Personnel Name: LINDA REDMOND CNP Address: Address: [address] [place] [address] Personnel Name: LINDA REDMOND CNP Address: Address: [address] [place] [address] FOR RECORDS PERTAINING TO PATIENTS WHO ARE [...] ON THE PRIMARY CLINICAL RECORDS. [facility]. provides no warranty or guarantee of the accuracy or completeness of information in this document.
== END 2023-12-16 08:09 | disposition home or self-care (01) ==
LOC: CT 08:08
PROVIDERS: PCP Nurse Practitioner; Visit Provider Nurse Practitioner
DX: R74.8 Abnormal levels of other serum enzymes (principal); N83.8 Other noninflammatory disorders of ovary, fallopian tube and broad ligament; K80.20 Calculus of gallbladder without cholecystitis without obstruction
CPT/HCPCS: 74177; Q9967

== ENCOUNTER 2024-01-09 10:13 | Outpatient (OUT) | payer OTHER, SELFPAY ==
--- OUTSIDE RECORDS SUMMARY | 2024-01-09 10:30 | XMS_ITS | CCD ---
Author Organization [facility] Care Team Providers Care Technical Fellow Name Role Phone PCP, NO Primary Care Unavailable MENDEL CORADO Attending Unavailable MENDEL CORADO Referring Unavailable AICLINDA SERVIN Primary Care Physician Halley BARBOSA Attending Unavailable AICHLINDA MINAYA Referring Unavailabl e Halley BARBOSA Attending Unavailable Halley BARBOSA Attending Unavailable Halley BARBOSA Referring Unavailable AICHHOLZ, TNT POWDER WORKER LINDA Primary Care Unavailable AICHHOLZ, TNT POWDER WORKER LINDA Admitting Unavailable AICHHOLZ, TNT POWDER WORKER LINDA Consulting Unavailable AICHHOLZ, TNT POWDER WORKER LINDA Attending Unavailable AICHHOLZ, TNT POWDER WORKER LINDA Admitting Unavailable AICHHOLZ, TNT POWDER WORKER LINDA Consulting Unavailable AICHHOLZ, TNT POWDER WORKER LINDA Attending Unavailable AICHHOLZ, TNT POWDER WORKER LINDA Primary Care Unavailable AICHHOLZ, TNT POWDER WORKER LINDA Consulting Unavailable AICHHOLZ, TNT POWDER WORKER LINDA Attending Unavailable AICHHOLZ, TNT POWDER WORKER LINDA Admitting Unavailable AICHHOLZ, TNT POWDER WORKER LINDA Primary Care Unavailable DR TODD DORANTES Consulting Unavailable KIANA CHURCH Consulting Unavailable AICHHOLZ, TNT POWDER WORKER LINDA Consulting Unavailable AICHHOLZ, TNT POWDER WORKER LINDA Attending Unavailable AICHHOLZ, TNT POWDER WORKER LINDA Admitting Unavailable AICHHOLZ, TNT POWDER WORKER LINDA Primary Care Unavailable DR TODD DORANTES Consulting Unavailable NILL ., DR ROWLEY Attending Unavailable NILL ., DR ROWLEY Admitting Unavailable AICHHOLZ, TNT POWDER WORKER LINDA Primary Care Unavailable NILL ., DR ROWLEY Consulting Unavailable MINGO II, VLAD Consulting Unavailable ALDO ELIZABETH Consulting Unavailable JED LINK Consulting Unavailable NILL ., DR ROWLEY Admitting Unavailable NILL ., DR ROWLEY Consulting Unavailable AICHHOLZ, TNT POWDER WORKER LINDA Primary Care Unavailable NILL ., DR ROWLEY Attending Unavailable AICHHOLZ, TNT POWDER WORKER LINDA Primary Care Unavailable RENZO ., DR RICHARDSON Admitting Unavailable RENZO ., DR RICHARDSON Consulting Unavailable RENZO ., DR RICHARDSON Attending Unavailable RENZO ., DR RICHARDSON Consulting Unavailable RENZO ., DR RICHARDSON Attending Unavailable RENZO ., DR RICHARDSON Admitting Unavailable AICHHOLZ, TNT POWDER WORKER LINDA Primary Care Unavailable AICHHOLZ, TNT POWDER WORKER LINDA Primary Care Unavailable RENZO ., DR RICHARDSON Consulting Unavailable RENZO ., DR RICHARDSON Attending Unavailable RENZO ., DR RICHARDSON Admitting Unavailable ROBERT HOPKINS Consulting Unavailable ABDI GALVAN Consulting Unavailable AICHHOLZ, TNT POWDER WORKER LINDA Primary Care Unavailable AICHHOLZ, TNT POWDER WORKER LINDA Attending Unavailable AICHHOLZ, TNT POWDER WORKER LINDA Admitting Unavailable AICHHOLZ, TNT POWDER WORKER LINDA Consulting Unavailable AICHHOLZ, TNT POWDER WORKER LINDA Consulting Unavailable AICHHOLZ, TNT POWDER WORKER LINDA Attending Unavailable AICHHOLZ, TNT POWDER WORKER LINDA Admitting Unavailable AICHHOLZ, TNT POWDER WORKER LINDA Primary Care Unavailable AICHHOLZ, TNT POWDER WORKER LINDA Admitting Unavailable AICHHOLZ, TNT POWDER WORKER LINDA Primary Care Unavailable AICHHOLZ, TNT POWDER WORKER LINDA Consulting Unavailable AICHHOLZ, TNT POWDER WORKER LINDA Attending Unavailable AICHHOLZ, TNT POWDER WORKER LNIDA Primary Care Unavailable AICHHOLZ, TNT POWDER WORKER LINDA Admitting Unavailable AICHHOLZ, TNT POWDER WORKER LINDA Consulting Unavailable AICHHOLZ, TNT POWDER WORKER LINDA Attending Unavailable AICHHOLZ, LINDA Attending Unavailable AICHHOLZ, LINDA Attending Unavailable DYLAN RAJAN Attending Unavailable DYLAN RAJAN Attending Unavailable JOHANNA BRANDT Attending Unavailable AICHHOLZ, LINDA Attending Unavailable GURPREET DEJESUS Attending Unavailable GURPREET DEJESUS Referring Unavailable AICHHOLZ, LINDA J Primary Care Unavailable Aichholz HAND BOBBIN CLEANER-TNT POWDER WORKER, Linda J Primary Care Provider Allergies Allergy Classification Reported Allergen(s) Allergy Type Date of Onset Reaction(s) Facility (6 sources) Cephalexin; Translations: [cephalexin] Drug Allergy 4 Syncope (disorder), Syncope [facility] [place] (2 sources) Cephalexin Drug Allergy [facility] Repository Medications Current Medications Medication Drug Class(es) Dates Sig (Normalized) Sig (Original) busPIRone hydrochloride 15 mg oral tablet (3 sources) Start: 11-30-2022 busPIRone 15 mg Tab 22.5 mg = 1.5 tab(s), Oral, BID, Refills(s) 0 Start Date: 03/03/22 Status: Ordered take 0.5 tablet by m outh in the morning, then take 0.5 tablet by mouth at bedtime busPIRone (BUSPAR) 15 mg tablet Indications: generalized anxiety disorder Take 0.5 tablets (7.5 mg total) by mouth in the morning and 0.5 tablets (7.5 mg total) before bedtime. Indications: repeated episodes of anxiety. Active cholecalciferol 0.05 mg oral capsule (1 source) Vitamin D take 1 capsule by mouth once daily in the morning cholecalciferol, vitamin D3, (VITAMIN D3) 2,000 units capsule Indications: prevention of vitamin D deficiency Take 1 capsule (2,000 Units total) by mouth in the morning. Indications: prevention of vitamin D deficiency. Active clonazePAM 0.5 mg oral tablet (3 sources) Benzodiazepine Start: take 1 tablet by mouth three times daily ClonazePAM 0.5 mg Tab 0.5 mg = 1 tab(s), Oral, TID, Refills(s) 0 Start Date: 03/03/22 Status: Ordered escitalopram 20 mg oral tablet (2 sources) Serotonin Reuptake Inhibitor Start: take 1 tablet by mouth once daily Lexapro 20 mg Tab 20 mg = 1 tab(s), Oral, Daily, Refills(s) 0 Start Date: 03/03/22 Status: Ordered ferrous sulfate 325 mg delayed release oral tablet (2 sources) Start: take 1 tablet by mouth twice daily ferrous sulfate 325 mg oral enteric coated tablet 325 mg = 1 tab(s), Oral, BID, Refills(s) 0 Start Date: 03/05/22 Status: Ordered folic acid 5 mg oral tablet (1 source) take 5 mg by mouth in the morning FOLIC ACID ORAL Take 5 mg by mouth in the morning. Active loratadine 10 mg oral tablet (2 sources) Start: take 1 tablet by mouth once daily loratadine 10 mg Tab 10 mg = 1 tab(s), Oral, Daily, Refills(s) 0 Start Date: 03/03/22 Status: Ordered magnesium oxide 500 mg oral tablet (1 source) take 1 tablet by mouth in the morning magnesium oxide 500 mg tablet Take 1 tablet (500 mg total) by mouth in the morning. Pt unsure of dose. Active Multi Vitamins oral tablet (2 sources) Start: take 1 tablet by mouth once daily Multi Vitamins oral tablet 1 tab(s), Oral, Daily, Refill(s) 0 Start Date: 03/03/22 Status: Ordered dekjtguikhqo-Gu-accu-m inerals tablet (1 source) take 1 tablet by mouth in the morning lbgacduhcjqe-Nw-teqh-m inerals tablet Take 1 tablet by mouth in the morning. Active pantoprazole 40 mg delayed release oral tablet (2 sources) Proton Pump Inhibitor Start: take 1 tablet by mouth once daily Pantoprazole [address] Tab 40 mg = 1 tab(s), Oral, Daily, Refills(s) 0 Start Date: 03/03/22 Status: Ordered sucralfate 1000 mg oral tablet (1 source) Aluminum Complex Start: Carafate 1 gram Tab 1 gm = 1 tab(s), Oral, QIDACHS, Refills(s) 0 Start Date: 04/14/22 Status: Ordered Problems Active Problems Problem Classification Problem Date Documented Da te Episodic/Chronic Abdominal pain (9 sources) Pelvic and perineal pain; Translations: [Upper [...] Onset: 04-14-2022 Other aftercare (1 source) 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; Translations: [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] Onset: 08-02-2022 Episodic Other [...] Alteration in bowel elimination 03-05-2022 Episodic Other gastrointestinal disorders (2 sources) Intra-abdominal and pelvic swelling, mass and lump, unspecified site; Translations: [Intra-abdominal and pelvic swelling, mass and lump, unspecified site] Onset: 12-21-2023 Episodic Other gastrointestinal disorders (2 sources) Pelvic mass; Translations: [Intra-abdominal and pelvic swelling, mass and lump, unspecified site] Onset: 12-21-2023 01-02-2024 Episodic Other nutritional; endocrine; and metabolic disorders [...] Test Name Value Interpretation Reference Range Facility CBC AND AUTO DIFFon 01-02-20 24 ABSOLUTE BASOPHIL 0.1 X10E9/L Normal 0.0-0.2 [facility] Comment on above: Performed By: #### C BCA, CMP #### [facility] ([id number]) [address], [address] [place] [address] ABSOLUTE NEUTROPHIL 5.3 X10E9/L Normal 1.5-6.6 [facility] Comment on above: Performed By: #### C BCA, CMP #### [facility] ([id number]) [address], [address] [place] [address] Basophils/100 WBC (Bld) 1.1 % Normal [facility] Comment on above: Performed By: #### C BCA, CMP #### [facility] ([id number]) [address] [address] [place] [address] Eosinophils (Bld) [#/Vol] 0.1 10*3/uL Normal 0.0-0.4 [facility] Comment on above: Performed By: #### C BCA, CMP #### [facility] ([id number]) [address], [address] [place] [address] Eosinophils/100 WBC (Bld) 1.4 % Normal [facility] Comment on above: Performed By: #### C BCA, CMP #### [facility] ([id number]) [address] [address] [place] [address] Erythrocyte distribution width (RBC) [Ratio] 14.2 % Normal 11.5-15.0 [facility] Comment on above: Performed By: #### C BCA, CMP #### [facility] ([id number]) [address] [address] [place] [address] Hematocrit (Bld) [Volume fraction] 41.0 % Normal 35-47 [facility] Comment on above: Performed By: #### C BCA, CMP #### [facility] ([id number]) [address], [address] [place] [address] Hemoglobin (Bld) [Mass/Vol] 14.1 g/dL Normal 11.7-15.5 [facility] Comment on above: Performed By: #### C BCA, CMP #### [facility] ([id number]) [address] [facility] [address] [place] [address] Lymphocytes (Bld) [#/Vol] 2.1 10*3/uL Normal 1.0-3.5 [facility] Comment on above: Performed By: #### C BCA, CMP #### [facility] ([id number]) [address], [address] [place] [address] Lymphocytes/100 WBC (Bld) 25.7 % Normal [facility] Comment on above: Performed By: #### C BCA, CMP #### [facility] ([id number]) [address], [address] [place] [address] MCH (RBC) [Entitic mass] 31.9 pg Normal 27-34 [facility] Comment on above: Performed By: #### C BCA, CMP #### [facility] ([id number]) [address], [address] [place] [address] MCHC (RBC) [Mass/Vol] 34.3 g/dL Normal 32-36 [facility] Comment on above: Performed By: #### C BCA, CMP #### [facility] ([id number]) [address], [address] [place] [address] MCV (RBC) [Entitic vol] 93 fL Normal 80-100 [facility] Comment on above: Performed By: #### C BCA, CMP #### [facility] ([id number]) [address], [address] [place] [address] Monocytes (Bld) [#/Vol] 0.5 10*3/uL Normal 0-0.9 [facility] Comment on above: Performed By: #### C BCA, CMP #### [facility] ([id number]) [address], [address] [place] [address] Monocytes/100 WBC (Bld) 6.1 % Normal [facility] Comment on above: Performed By: #### C BCA, CMP #### [facility] ([id number]) [address] [place] [address] Neutrophils/100 WBC (Bld) 65.7 % Normal [facility] Comment on above: Performed By: #### C BCA, CMP #### [facility] ([id number]) [address] [place] [address] Platelet mean volume (Bld) [Entitic vol] 9.7 fL Normal 7-12 [facility] Comment on above: Performed By: #### C ANALIA, CMP #### [facility] ([id number]) [address] [place] [address] Platelets (Bld) [#/Vol] 188 10*3/uL Normal 150-450 [facility] Comment on above: Performed By: #### C BCA, CMP #### [facility] ([id number]) [address], [address] [place] [address] RBC COUNT 4.42 X10E12/L Normal 3.80-5.20 [facility] Comment on above: Performed By: #### C BCA, CMP #### [facility] ([id number]) [address], [address] [place] [address] WBC (Bld) [#/Vol] 8.1 10*3/uL Normal 4.0-11.0 [facility] Comment on above: Performed By: #### C BCA, CMP #### [facility] ([id number]) [address] [place] [address] CBC with auto diffon 024 Basophils (Bld) [#/Vol] 0.1 10*3/uL [facility] Basophils/100 WBC (Bld) 1.1 % [facility] Eosinophils (Bld) [#/Vol] 0.1 10*3/uL [facility] Eosinophils/100 WBC (Bld) 1.4 % [facility] Erythrocyte distribution width (RBC) [Ratio] 14.2 % 11.5 - 15.0 % [facility] Hematocrit (Bld) [Volume fraction] 41.0 % 35 - 47 % [facility] Hemoglobin (Bld) [Mass/Vol] 14.1 g/dL 11.7 - 15.5 g/dL [facility] Lymphocytes (Bld) [#/Vol] 2.1 10*3/uL [facility] Lymphocytes/100 WBC (Bld) 25.7 % [facility] MCH (RBC) [Entitic mass] 31.9 pg 27 - 34 pg [facility] MCHC (RBC) [Mass/Vol] 34.3 g/dL 32 - 36 g/dL [facility] MCV (RBC) [Entitic vol] 93 fL 80 - 100 fL [facility] Monocytes (Bld) [#/Vol] 0.5 10*3/uL [facility] Monocytes/100 WBC (Bld) 6.1 % [facility] Neutrophils (Bld) [#/Vol] 5.3 10*3/uL [facility] Neutrophils/100 WBC (Bld) 65.7 % [facility] Platelet mean volume (Bld) [Entitic vol] 9.7 fL 7 - 12 fL [facility] Platelets (Bld) [#/Vol] 188 10*3/uL [facility] RBC (Bld) [#/Vol] 4.42 10*6/uL [facility] WBC corrected for nucl RBC Auto (Bld) [#/Vol] 8.1 [facility] COMPREHENSIVE METABOLIC PANE Jeramy 01-02-2024 Albumin [Mass/Vol] 4.4 g/dL Normal 3.2-5.3 [facility] Comment on above: Performed By: #### C BCA, CMP #### [facility] ([id number]) [address], [address] [place] [address] ALP [Catalytic activity/Vol] 157 U/L High 39-130 [facility] Comment on above: Performed By: #### C BCA, CMP #### [facility] ([id number]) [address], [address] [place] [address] ALT [Catalytic activity/Vol] 51 U/L High 0-31 [facility] Comment on above: Performed By: #### C BCA, CMP #### [facility] ([id number]) [address] [place] [address] Anion gap [Moles/Vol] 9 mmol/L Normal 5-15 [facility] Comment on above: Performed By: #### C BCA, CMP #### [facility] ([id number]) [address], [address] [place] [address] AST [Catalytic activity/Vol] 51 U/L High 0-41 [facility] Comment on above: Performed By: #### C BCA, CMP #### [facility] ([id number]) [address], [address] [place] [address] Bilirubin [Mass/Vol] 0.3 mg/dL Normal 0.3-1.2 [facility] Comment on above: Performed By: #### C BCA, CMP #### [facility] ([id number]) [address], [address] [place] [address] Calcium [Mass/Vol] 9.8 mg/dL Normal 8.5-10.5 [facility] Comment on above: Performed By: #### C BCA, CMP #### [facility] ([id number]) [address] [place] [address] Chloride [Moles/Vol] 104 mmol/L Normal 98-109 [facility] Comment on above: Performed By: #### C BCA, CMP #### [facility] ([id number]) [address] [place] [address] CO2 [Moles/Vol] 25 mmol/L Normal 22-32 [facility] Comment on above: Performed By: #### C BCA, CMP #### [facility] ([id number]) [address] [place] [address] Creatinine [Mass/Vol] 0.86 mg/dL Normal 0.40-1.00 [facility] Comment on above: Result Comment: METH OD TRACEABLE TO IDMS STANDARD Performed By: #### C BCA, CMP #### [facility] ([id number]) [address] [place] [address] GFR/1.73 sq M.predicted among non-blacks MDRD (S/P/Bld) [Vol rate/Area] 88 mL/min/{1.73_m2} Normal >59 [facility] Comment on above: Result Comment: Reported eGFR is based on the CKD-EPI 2020 equation that does not use a race coefficient. Performed By: #### C BCA, CMP #### [facility] ([id number]) [address], [address] [place] [address] Glucose [Mass/Vol] 92 mg/dL Normal 65-99 [facility] Comment on above: Performed By: #### C BCA, CMP #### [facility] ([id number]) [address] [place] [address] Potassium [Moles/Vol] 4.3 mmol/L Normal 3.5-5.0 [facility] Comment on above: Performed By: #### C BCA, CMP #### [facility] ([id number]) [address] [place] [address] Protein [Mass/Vol] 7.7 g/dL Normal 6.0-8.0 [facility] Comment on above: Performed By: #### C BCA, CMP #### [facility] ([id number]) [address] [place] [address] Sodium [Moles/Vol] 138 mmol/L Normal 134-146 [facility] Comment on above: Performed By: #### C BCA, CMP #### [facility] ([id number]) [address] [place] [address] Urea nitrogen [Mass/Vol] 13 mg/dL Normal 5-23 [facility] Comment on above: Performed By: #### C BCA, CMP #### [facility] ([id number]) [address] [place] [address] Comprehensive metabolic pane jeramy 01-02-2024 Albumin [Mass/Vol] 4.4 g/dL 3.2 - 5.3 g/dL [facility] ALP [Catalytic activity/Vol] 157 U/L High 39 - 130 U/L [facility] ALT No additional P-5'-P [Catalytic activity/Vol] 51 U/L High 0 - 31 U/L [facility] Anion gap [Moles/Vol] 9 mmol/L 5 - 15 mmol/L [facility] AST [Catalytic activity/Vol] 51 U/L High 0 - 41 U/L [facility] Bilirubin [Mass/Vol] 0.3 mg/dL 0.3 - 1.2 mg/dL [facility] Calcium [Mass/Vol] 9.8 mg/dL 8.5 - 10. 5 mg/dL [facility] Chloride [Moles/Vol] 104 mmol/L 98 - 109 mmol/L [facility] CO2 [Moles/Vol] 25 mmol/L 22 - 32 mmol/L [facility] Creatinine [Mass/Vol] 0.86 mg/dL 0.40 - 1.00 mg/dL [facility] Comment on above: METHOD TRACEABLE TO IDWA STANDARD eGFR (CKD-EPI)non-race dependent 88 - PINF [facility] Comment on above: Reported eGFR is based on the CKD-EPI 2020 equation that does not use a race coefficient. Glucose [Mass/Vol] 92 mg/dL 65 - 99 mg/dL [facility] Interpretation and review of laboratory results Abnormal [facility] Potassium [Moles/Vol] 4.3 mmol/L 3.5 - 5.0 mmol/L [facility] Protein [Mass/Vol] 7.7 g/dL 6.0 - 8.0 g/dL [facility] Sodium [Moles/Vol] 138 mmol/L 134 - 146 mmol/L [facility] Urea nitrogen [Mass/Vol] 13 mg/dL 5 - 23 mg/dL [facility] ECG 12 leadon 01-02-2024 TRACEMASTERVUE [facility] BUNon 07-17-2022 Urea nitrogen [Mass/Vol] 9.0 mg/dL Normal 7.0-18.0 [facility] Comment on above: Performed By: #### C DANY BUN #### [facility] [address] [place] [address] Dr. Marianela Villa CBC AUTO DIFFon 07-17-2022 BASO # 0.0 103/ul Normal 0.0-0.1 [facility] Comment on above: Performed By: #### C DANY BUN #### [facility] [address] [place] [address] Dr. Marianela Villa Basophils/100 WBC (Bld) 0.1 % Critically low 0.2-2.0 [facility] Comment on above: Performed By: #### C DANY BUN #### [facility] [address] [place] [address] Dr. Marianela Villa EO # 0.0 103/ul Normal 0.0-0.7 [facility] Comment on above: Performed By: #### C DANY, BUN #### [facility] [address] [place], [place] [address] Dr. Marianela Villa Eosinophils/100 WBC (Bld) 0.0 % Critically low 0.9-7.0 [facility] Comment on above: Performed By: #### C DANY, BUN #### [facility] [address] [place] [address] Dr. Marianela Villa Erythrocyte distribution width (RBC) [Ratio] 14.5 % Normal 11.0-15.0 [facility] Comment on above: Performed By: #### C DANY, BUN #### [facility] [address] [place] [address] Dr. Marianela Villa Hematocrit (Bld) [Volume fraction] 29.9 % Critically low 36.0-48.0 [facility] Comment on above: Performed By: #### C DANY, BUN #### [facility] [address] [place] [address] Dr. Marianela Villa Hemoglobin (Bld) [Mass/Vol] 10.0 g/dL Critically low 12.0-16.0 [facility] Comment on above: Performed By: #### C DANY, BUN #### [facility] [address] [place] [address] Dr. Marianela Villa IG # 0.04 10e3/ul Critically high 0.00-0.03 [facility] Comment on above: Performed By: #### C DANY, BUN #### [facility] [address] [place] [address] Dr. Marianela Villa IG % 0.4 % Normal 0.0-0.5 [facility] Comment on above: Performed By: #### C DANY, BUN #### [facility] [address] [place] [address] Dr. Marianela Villa LYMPH # 1.2 103/ul Normal 1.2-3.8 [facility] Comment on above: Performed By: #### C DANY, BUN #### [facility] [address] [place] [address] Dr. Marianela Villa Lymphocytes/100 WBC (Bld) 12.1 % Critically low 20.5-60.0 [facility] Comment on above: Performed By: #### C DANY, BUN #### [facility] [address] [address] [address] Marianela Villa MANUAL DIFF REQ NO Normal [facility] Comment on above: Performed By: #### C DANY, BUN #### [facility] [address] [place] [address] Dr. Marianela Villa MCH (RBC) [Entitic mass] 31.3 pg Normal 26.7-34.0 [facility] Comment on above: Performed By: #### C DANY, BUN #### [facility] [address] [place] [address] Dr. Marianela Villa MCHC (RBC) [Mass/Vol] 33.4 g/dL Normal 29.9-35.2 [facility] Comment on above: Performed By: #### C DANY, BUN #### [facility] [address] [place] [address] Dr. Marianela Villa MCV (RBC) [Entitic vol] 93.7 fL Normal 81.0-99.0 [facility] Comment on above: Performed By: #### C DANY, BUN #### [facility] [address] [place] [address] Dr. Marianela Villa MONO # 1.0 103/ul Critically high 0.3-0.8 [facility] Comment on above: Performed By: #### C DANY, BUN #### [facility] [address] [place] [address] Dr. Marianela Villa Monocytes/100 WBC (Bld) 10.2 % Normal 1.7-12.0 [facility] Comment on above: Performed By: #### C DANY, BUN #### [facility] [address] [place] [address] Dr. Marianela Villa NEUT # 7.7 103/ul Critically high 1.4-6.5 [facility] Comment on above: Performed By: #### C DANY, BUN #### [facility] [address] [place] [address] Dr. Marianela Villa Neutrophils/100 WBC (Bld) 77.2 % Critically high 43.0-75.0 [facility] Comment on above: Performed By: #### C DANY, BUN #### [facility] [address] [place] [address] Dr. Marianela Villa Platelet mean volume (Bld) [Entitic vol] 10.9 fL Normal 9.5-13.5 [facility] Comment on above: Performed By: #### C DANY, BUN #### [facility] [facility] [address] [place] [address] Dr. Marianela Villa PLT 188 103/ul Normal 150-450 [facility] Comment on above: Performed By: #### C DANY, BUN #### [facility] [address] [place] [address] Dr. Marianela Villa RBC 3.19 106/ul Critically low 4.20-5.40 [facility] Comment on above: Performed By: #### C DANY, BUN #### [facility] [address] [place] [address] Dr. Marianela Villa WBC 10.0 103/ul Normal 4.0-11.0 [facility] Comment on above: Performed By: #### C DANY, BUN #### [facility] [address] [place] [address] Dr. Marianela Villa CREATININEon 07-17-2022 Creatinine [Mass/Vol] 0.78 mg/dL Normal 0.55-1.02 [facility] Comment on above: Performed By: #### C DANY, BUN #### [facility] [address] [place] [address] Dr. Marianela Villa EGFR-AF MALAGASY >60 Normal >=60 [facility] Comment on above: Performed By: #### C DANY, BUN #### [facility] [address] [place] [address] Dr. Marianela Villa EGFR-NON AF MALAGASY >60 Normal >=60 [facility] Comment on above: Performed By: #### C DANY, BUN #### [facility] [address] [place] [address] Dr. Marianela Villa PREG QUANT HCGon 07-16-2022 HCG QUANT <1 Normal [facility] Comment on above: Performed By: #### P REGQNT #### [facility] [address] [place] [address] Dr. Marianela Villa HCG RANGE SEE BELOW Normal [facility] Comment on above: Result Comment: 5-50 0.2-1 WEEK 50-500 1-2 WEEKS 100-5,000 2-3 WEEKS 500-10,000 3-4 WEEKS 1,000-50,000 4-5 WEEKS 10,000-100,000 5-6 WEEKS 15,000-200,000 6-8 WEEKS 10,000-100,000 2-3 MONTHS Performed By: #### P REGQNT #### [facility] [address] [place] [address] Dr. Marianela Villa TYPE AND SCREENon 07-13-2022 TYPE AND SCREEN Negative Normal [facility] Comment on above: Performed By: #### C DANY, BUN #### [facility] [address] [place] [address] Dr. Marianela Villa CBC AUTO DIFFon 07-01-2022 BASO # 0.0 103/ul Normal 0.0-0.1 [facility] Comment on above: Performed By: #### C BC #### [facility] [address] [place] [address] Dr. Marianela Villa Basophils/100 WBC (Bld) 0.3 % Normal 0.2-2.0 [facility] Comment on above: Performed By: #### C BC #### [facility] [address] [place] [address] Dr. Marianela Villa EO # 0.1 103/ul Normal 0.0-0.7 [facility] Comment on above: Performed By: #### C BC #### [facility] [address] [place] [address] Dr. Marianela Villa Eosinophils/100 WBC (Bld) 1.6 % Normal 0.9-7.0 [facility] Comment on above: Performed By: #### C BC #### [facility] [address] [place] [address] Dr. Marianela Villa Erythrocyte distribution width (RBC) [Ratio] 13.9 % Normal 11.0-15.0 [facility] Comment on above: Performed By: #### C BC #### [facility] [address] [place] [address] Dr. Marianela Villa Hematocrit (Bld) [Volume fraction] 37.9 % Normal 36.0-48.0 [facility] Comment on above: Performed By: #### C BC #### [facility] [address] [place] [address] Dr. Marianela Villa Hemoglobin (Bld) [Mass/Vol] 12.3 g/dL Normal 12.0-16.0 [facility] Comment on above: Performed By: #### C BC #### [facility] [address] [place] [address] Dr. Marianela Villa IG # 0.01 10e3/ul Normal 0.00-0.03 [facility] Comment on above: Performed By: #### C BC #### [facility] [address] [place] [address] Dr. Marianela Villa IG % 0.2 % Normal 0.0-0.5 [facility] Comment on above: Performed By: #### C BC #### [facility] [address] [place] [address] Dr. Marianela Villa LYMPH # 1.6 103/ul Normal 1.2-3.8 [facility] Comment on above: Performed By: #### C BC #### [facility] [address] [place] [address] Dr. Marianela Villa Lymphocytes/100 WBC (Bld) 24.6 % Normal 20.5-60.0 [facility] Comment on above: Performed By: #### C BC #### [facility] [address] [place] [address] Dr. Marianela Villa MANUAL DIFF REQ NO Normal [facility] Comment on above: Performed By: #### C BC #### [facility] [address] [place] [address] Dr. Marianela Villa MCH (RBC) [Entitic mass] 30.5 pg Normal 26.7-34.0 [facility] Comment on above: Performed By: #### C BC #### [facility] [address] [place] [address] Dr. Marianela Villa MCHC (RBC) [Mass/Vol] 32.5 g/dL Normal 29.9-35.2 [facility] Comment on above: Performed By: #### C BC #### [facility] [address] [place] [address] Dr. Marianela Villa MCV (RBC) [Entitic vol] 94.0 fL Normal 81.0-99.0 [facility] Comment on above: Performed By: #### C BC #### [facility] [address] [place] [address] Dr. Marianela Villa MONO # 0.5 103/ul Normal 0.3-0.8 [facility] Comment on above: Performed By: #### C BC #### [facility] [address] [place] [address] Dr. Marianela Villa Monocytes/100 WBC (Bld) 7.6 % Normal 1.7-12.0 [facility] Comment on above: Performed By: #### C BC #### [facility] [address] [place] [address] Dr. Marianela Villa NEUT # 4.2 103/ul Normal 1.4-6.5 [facility] Comment on above: Performed By: #### C BC #### [facility] [address] [place] [address] Dr. Marianela Villa Neutrophils/100 WBC (Bld) 65.7 % Normal 43.0-75.0 [facility] Comment on above: Performed By: #### C BC #### [facility] [address] [place] [address] Dr. Marianela Villa Platelet mean volume (Bld) [Entitic vol] 11.0 fL Normal 9.5-13.5 [facility] Comment on above: Performed By: #### C BC #### [facility] [address] [place] [address] Dr. Marianela Villa PLT 251 103/ul Normal 150-450 [facility] Comment on above: Performed By: #### C BC #### [facility] [address] [address] [address] Marianela Villa RBC 4.03 106/ul Critically low 4.20-5.40 [facility] [place] Comment on above: Performed By: #### C BC #### [facility] [address] [address] [address] Marianela Villa WBC 6.4 103/ul Normal 4.0-11.0 [facility] Comment on above: Performed By: #### C BC #### [facility] [address] [address] [address] Marianela Villa LIVER PROFILEon 07-01-2022 Albumin [Mass/Vol] 3.7 g/dL Normal 3.4-5.0 [facility] Comment on above: Performed By: #### B MP, LIVER #### [facility] [address] [place] [address] Dr. Marianela Villa Albumin/Globulin [Mass ratio] 1.0 {ratio} Normal [facility] Comment on above: Performed By: #### B MP, LIVER #### [facility] [address] [place] [address] Dr. Marianela Villa ALP [Catalytic activity/Vol] 96 U/L Normal 46-116 [facility] Comment on above: Performed By: #### B MP, LIVER #### [facility] [address] [address] [address] Marianela Villa ALT [Catalytic activity/Vol] 25 U/L Normal 14-59 [facility] Comment on above: Performed By: #### B MP, LIVER #### [facility] [address] [place] [address] Dr. Marianela Villa AST [Catalytic activity/Vol] 16 U/L Normal 15-37 [facility] Comment on above: Performed By: #### B MP, LIVER #### [facility] [address] [address] [address] Marianela Villa BILI, CONJUGATED 0.0 mg/dL Normal 0.0-0.2 [facility] Comment on above: Performed By: #### B MP, LIVER #### [facility] [address] [place] [address] Dr. Marianela Villa Bilirubin [Mass/Vol] 0.2 mg/dL Normal 0.2-1.0 [facility] Comment on above: Performed By: #### B MP, LIVER #### [facility] [address] [place] [address] Dr. Marianela Villa Globulin (S) [Mass/Vol] 3.7 g/dL Normal [facility] Comment on above: Performed By: #### B MP, LIVER #### [facility] [address] [place] [address] Dr. Marianela Villa Protein [Mass/Vol] 7.4 g/dL Normal 6.4-8.2 [facility] Comment on above: Performed By: #### B MP, LIVER #### [facility] [address] [place] [address] Dr. Marianela Villa PROF CHEM 8 (BAS METB)on Anion gap [Moles/Vol] 13.2 mmol/L Normal [facility] Comment on above: Performed By: #### B MP, LIVER #### [facility] [address] [place] [address] Dr. Marianela Villa Calcium [Mass/Vol] 9.2 mg/dL Normal 8.5-10.1 [facility] Comment on above: Performed By: #### B MP, LIVER #### [facility] [address] [place] [address] Dr. Marianela Villa Chloride [Moles/Vol] 103 mmol/L Normal 98-107 [facility] Comment on above: Performed By: #### B MP, LIVER #### [facility] [address] [place] [address] Dr. Marianela Villa CO2 [Moles/Vol] 28.0 mmol/L Normal 21.0-32.0 [facility] Comment on above: Performed By: #### B MP, LIVER #### [facility] [address] [place] [address] Dr. Marianela Villa Creatinine [Mass/Vol] 0.75 mg/dL Normal 0.55-1.02 [facility] Comment on above: Performed By: #### B MP, LIVER #### [facility] [address] [place] [address] Dr. Marianela Villa EGFR-AF MALAGASY >60 Normal >=60 [facility] Comment on above: Performed By: #### B MP, LIVER #### [facility] [address] [place] [address] Dr. Marianela Villa EGFR-NON AF MALAGASY >60 Normal >=60 [facility] Comment on above: Performed By: #### B MP, LIVER #### [facility] [address] [place] [address] Dr. Marianela Villa Glucose [Mass/Vol] 86 mg/dL Normal 74-106 [facility] Comment on above: Performed By: #### B MP, LIVER #### [facility] [address] [place] [address] Dr. Marianela Villa Potassium [Moles/Vol] 4.2 mmol/L Normal 3.5-5.1 [facility] Comment on above: Performed By: #### B MP, LIVER #### [facility] [address] [place] [address] Dr. Marianela Villa Sodium [Moles/Vol] 140 mmol/L Normal 136-145 [facility] Comment on above: Performed By: #### B MP, LIVER #### [facility] [address] [place] [address] Dr. Marianela Villa Urea nitrogen [Mass/Vol] 8.0 mg/dL Normal 7.0-18.0 [facility] Comment on above: Performed By: #### B MP, LIVER #### [facility] [address] [place] [address] Dr. Marianela Villa Urea nitrogen/Creatinin e [Mass ratio] 10.7 mg/mg Normal [facility] Comment on above: Performed By: #### B MP, LIVER #### [facility] [address] [place] [address] Dr. Marianela Villa PROTIMEon 07-01-2022 INR Coag (PPP) [Relative time] 1.00 {INR} Normal [facility] Comment on above: Performed By: #### C DANY BUN #### [facility] [address] [place] [address] Dr. Marianela Villa INR GUIDELINES SEE BELOW Normal [facility] Comment on above: Result Comment: MCKENNA RED INR: 2.0 - 3.0 CONDITIONS NOT LISTED BELOW 2.5 - 3.5 FOR PROSTHETIC HEART VALVE REPLACEMENT 2.5 - 3.5 RECURRENT THROMBOSIS Performed By: #### C DANY BUN #### [facility] [address] [place] [address] Dr. Marianela Villa PT Coag (PPP) [Time] 10.6 s Normal 9.0-11.6 [facility] Comment on above: Performed By: #### Santos SAENZ BUN #### [facility] [address] [place] [address] Dr. Marianela Villa PTTon 07-01-2022 aPTT Coag (Bld) [Time] 25.0 s Normal 22.3-36.2 [facility] Comment on above: Performed By: #### C DANY BUN #### [facility] [address] [place] [address] Dr. Marianela Villa CBC AUTO DIFFon 05-05-2022 BASO # 0.0 103/ul Normal 0.0-0.1 [facility] Comment on above: Performed By: #### P REG #### [facility] [address] [place] [address] Dr. Marianela Villa Basophils/100 WBC (Bld) 0.4 % Normal 0.2-2.0 [facility] Comment on above: Performed By: #### P REG #### [facility] [address] [place] [address] Dr. Marianela Villa EO # 0.1 103/ul Normal 0.0-0.7 [facility] Comment on above: Performed By: #### P REG #### [facility] [address] [place] [address] Dr. Marianela Villa Eosinophils/100 WBC (Bld) 0.9 % Normal 0.9-7.0 [facility] Comment on above: Performed By: #### P REG #### [facility] [address] [place] [address] Dr. Marianela Villa Erythrocyte distribution width (RBC) [Ratio] 16.8 % Critically high 11.0-15.0 [facility] Comment on above: Performed By: #### P REG #### [facility] [address] [place] [address] Dr. Marianela Villa Hematocrit (Bld) [Volume fraction] 40.8 % Normal 36.0-48.0 [facility] Comment on above: Performed By: #### P REG #### [facility] [address] [place] [address] Dr. Marianela Villa Hemoglobin (Bld) [Mass/Vol] 13.0 g/dL Normal 12.0-16.0 [facility] Comment on above: Performed By: #### P REG #### [facility] [address] [place] [address] Dr. Marianela Villa IG # 0.02 10e3/ul Normal 0.00-0.03 [facility] Comment on above: Performed By: #### P REG #### [facility] [address] [place] [address] Dr. Marianela Villa IG % 0.3 % Normal 0.0-0.5 [facility] Comment on above: Performed By: #### P REG #### [facility] [address] [place] [address] Dr. Marianela Villa LYMPH # 1.6 103/ul Normal 1.2-3.8 [facility] Comment on above: Performed By: #### P REG #### [facility] [address] [place] [address] Dr. Marianela Villa Lymphocytes/100 WBC (Bld) 24.1 % Normal 20.5-60.0 [facility] Comment on above: Performed By: #### P REG #### [facility] [address] [place] [address] Dr. Marianela Villa MANUAL DIFF REQ NO Normal [facility] Comment on above: Performed By: #### P REG #### [facility] [address] [address] [address] Marianela Villa MCH (RBC) [Entitic mass] 30.3 pg Normal 26.7-34.0 [facility] Comment on above: Performed By: #### P REG #### [facility] [address] [place] [address] Dr. Marianela Villa MCHC (RBC) [Mass/Vol] 31.9 g/dL Normal 29.9-35.2 [facility] Comment on above: Performed By: #### P REG #### [facility] [address] [place] [address] Dr. Marianela Villa MCV (RBC) [Entitic vol] 95.1 fL Normal 81.0-99.0 [facility] Comment on above: Performed By: #### P REG #### [facility] [address] [place] [address] Dr. Marianela Vilal MONO # 0.5 103/ul Normal 0.3-0.8 [facility] Comment on above: Performed By: #### P REG #### [facility] [address] [place] [address] Dr. Marianela Villa Monocytes/100 WBC (Bld) 7.6 % Normal 1.7-12.0 [facility] Comment on above: Performed By: #### P REG #### [facility] [address] [place] [address] Dr. Marianela Villa NEUT # 4.5 103/ul Normal 1.4-6.5 [facility] Comment on above: Performed By: #### P REG #### [facility] [address] [place] [address] Dr. Marianela Villa Neutrophils/100 WBC (Bld) 66.7 % Normal 43.0-75.0 [facility] Comment on above: Performed By: #### P REG #### [facility] [address] [place] [address] Dr. Marianela Villa Platelet mean volume (Bld) [Entitic vol] 10.0 fL Normal 9.5-13.5 [facility] Comment on above: Performed By: #### P REG #### [facility] [address] [address] [address] Marianela Villa PLT 253 103/ul Normal 150-450 [facility] Comment on above: Performed By: #### P REG #### [facility] [address] [place], [place] [address] Dr. Marianela Villa RBC 4.29 106/ul Normal 4.20-5.40 [facility] Comment on above: Performed By: #### P REG #### [facility] [address] [address] [address] Marianela Villa WBC 6.8 103/ul Normal 4.0-11.0 [facility] Comment on above: Performed By: #### P REG #### [facility] [address] [address] [address] Marianela Villa FERRITINon 05-05-2022 Ferritin [Mass/Vol] 21.0 ng/mL Normal 6.2-137.0 [facility] Comment on above: Performed By: #### P REG #### [facility] [address] [address] [address] Marianela Villa IRONon 05-05-2022 Iron [Mass/Vol] 128.0 ug/dL Normal 50.0-170.0 [facility] Comment on above: Performed By: #### P REG #### [facility] [address] [address] [address] Marianela Villa US VAC ASST BX BREAST RT W C LIPon 04-29-2022 US VAC ASST BX BREAST RT W CLIP Begin Addendum #1 COLLECTED DATE/TIME: 04/26/2022, 11:20 EST Final Diagnosis Report for [facility] [place] [place] RIGHT BREAST 1 O'CLOCK MASS; BIOPSY: [...] provided after pathology results are available. Normal [facility] MAMMO POST BIOPSY RIGHTon MAMMO POST BIOPSY RIGHT Patient: EMILY MOY Exam Date: 04/26/2022 : 1985 Gender:F Ordering : [facility] Admission #: [id number] Family : Order #: [id number] CLICK HERE TO VIEW EXAM RADIOLOGY REPORT [...] Dorantes M.D. on 04/26/2022 at 13:[address] [facility] MG MAMM DIAGNOSTIC 3D SERVANDO CA Don 04-16-2022 MG MAMM DIAGNOSTIC 3D SERVANDO CAD Patient: EMILY MOY Exam Date: 04/16/2022 : 1985 Gender:F Ordering : [facility] Admission #: [id number] Family : Order #: [id number] CLICK HERE TO VIEW EXAM RADIOLOGY REPORT [...] leukemia cancer at age 1. LOCATION: [facility] BREAST COMPOSITION: Scattered areas fibroglandular [...] M.D. on 04/16/2022 at 13:39 Normal [facility] US BREAST RIGHT LIMITEDon US BREAST RIGHT LIMITED Patient: EMILY MOY Exam Date: 04/16/2022 : 1985 Gender:F Ordering : [facility] Admission #: [id number] Family : Order #: [id number] CLICK HERE TO VIEW EXAM RADIOLOGY REPORT [...] leukemia cancer at age 1. LOCATION: [facility] BREAST COMPOSITION: Scattered areas fibroglandular [...] M.D. on 04/16/2022 at 13:39 Normal [facility] US PELVIS AND TRANSVAGon US PELVIS AND [...] KIANA CHURCH Date: 2022-04-16 10:01 Normal [facility] General Surgery Office/Clini c Noteon [...] mRNA-1273 vaccine 07/19/2020 Recorded 2022-03-03: TPVALL Normal [facility] Comment on above: Result Comment: Elec tronically Signed By: BENITA GUTIERREZ, Halley Smith\Date and Time Signed: 04/14/22 16:29 EST Reminderson 04-14-2022 Reminders - From: Rain Alcantar LPN To: G[facility] - Clinical; Sent: 04/14/2022 15:37:22 EST Show up: 03/07/2032 07:00:00 EST Subject: colonoscopy recall Due Date/Time: 04/07/2032 07:00:00 EST Reminder/Recall Patient is due for screening colonoscopy 04/07/2032. Normal [facility] Outside Colonoscopyon 2022 Outside Colonoscopy [id number]:127 Normal [facility] Pathology Noteon 04-09-2022 Pathology Note [id number]#[id number]:127 Normal [facility] PREG HCG QUALon 04-07-2022 , QUAL Negative Normal NEGATIVE [facility] Comment on above: Performed By: #### C BC #### [facility] [address] [place] [address] Dr. Marianela Villa Lab Reportson 04-01-2022 Lab Reports [id number]:127 Normal [facility] Covid-19 PCR (CVDTB)on 03-05 SARS-CoV-2 (COVID-19) RNA TERA+probe Ql (Unsp spec) Not detected Normal NOT DETECTED [facility] Comment on above: Result Comment: This test is not yet approved or cleared by the [place] FDA. When there are no FDA-approved or cleared tests available, and other criteria are met, FDA can make tests available under an emergency access mechanism called an Emergency Use Authorization (EUA). The EUA for this test is supported by the [employer] of Health and Human Service's (HHS's) declaration [...] SARS-CoV-2. Performed By: #### P REG #### [facility] [address] [place] [address] Dr. Marianela Villa PAP ACOG PANEL 2: 30 to 65on 03-21-[address] [facility] Comment on above: Result Comment: Perf ormed at: WB Performed By: #### [id number] #### [facility] [address] [place] [address] Dr. Marianela Villa Age Gdln ACOG Testing 30-[address] [facility] Comment on above: Performed By: #### [id number] #### [facility] [address] [place] [address] Dr. Marianela Villa DIAGNOSIS: Comment Normal [facility] Comment on above: Result Comment: NEGA TIVE FOR INTRAEPITHELIAL LESION OR MALIGNANCY. Performed at: WB Performed By: #### [id number] #### [facility] [address] [place] [address] Dr. Marianela Villa HPV Aptima Negative Normal Negative [facility] Comment on above: Result Comment: This nucleic acid amplification test detects fourteen high-risk HPV types (16,18,31,33,35,39,45,51,52,56,58,59,66,68) without differentiation. Performed at: =G Performed By: #### [id number] #### [facility] [address] [place] [address] Dr. Marianela Villa HPV Genotype Reflex Comment Normal [facility] Comment on above: Result Comment: Crit eria not met, HPV Genotype not performed. Performed at: WB Performed By: #### [id number] #### [facility] [address] [place] [address] Dr. Marianela Villa Methodology: Comment Normal [facility] Comment on above: Result Comment: This liquid based ThinPrep(R) pap test was screened with the use of an image guided system. Performed at: WB Performed By: #### [id number] #### [facility] [address] [place] [address] Dr. Marianela Villa Note: Comment Normal [facility] Comment on above: Result Comment: The Pap smear is a screening test designed to aid in the detection of premalignant and malignant conditions of the uterine cervix. It is not a diagnostic procedure and should not be used as the sole means of detecting cervical cancer. Both false-positive and false-negative reports do occur. . Performed at: WB Performed By: #### [id number] #### [facility] [address] [place] [address] Dr. Marianela Villa Performed by: Comment Normal [facility] Comment on above: Result Comment: Nancy Leslie, Parent Trainer (ASCP) Performed at: WB Performed By: [id number] #### [facility] [address] [place] [address] Dr. Marianela Villa Specimen adequacy: Comment Normal [facility] Comment on above: Result Comment: Sati sfactory for evaluation. No endocervical component is identified. Performed at: WB Performed By: [id number] #### [facility] [address] [place] [address] Dr. Marianela Villa Pre-Certification Formon Pre-Certification Form [id number]#1.00CD:127 Normal [facility] Facesheeton 03-09-2022 Facesheet [id number]#[id number]:127 Normal [facility] Patient Correspondenceon Patient Correspondence [id number]:127 Normal [facility] Consent for Procedure/Surger yon 03-08-2022 Consent for Procedure/Surgery [id number]#[id number]:127 Normal [facility] CBC AUTO DIFFon 03-01-2022 BASO # 0.0 103/ul Normal 0.0-0.1 [facility] Comment on above: Performed By: #### C BC #### [facility] [address] [place] [address] Dr. Marianela Villa Basophils/100 WBC (Bld) 0.5 % Normal 0.2-2.0 [facility] Comment on above: Performed By: #### C BC #### [facility] [address] [place] [address] Dr. Marianela Villa EO # 0.1 103/ul Normal 0.0-0.7 [facility] Comment on above: Performed By: #### C BC #### [facility] [address] [place] [address] Dr. Marianela Villa Eosinophils/100 WBC (Bld) 1.3 % Normal 0.9-7.0 [facility] Comment on above: Performed By: #### C BC #### [facility] [address] [place] [address] Dr. Marianela Villa Erythrocyte distribution width (RBC) [Ratio] 25.9 % Critically high 11.0-15.0 [facility] Comment on above: Performed By: #### C BC #### [facility] [address] [place] [address] Dr. Marianela Villa Hematocrit (Bld) [Volume fraction] 36.4 % Normal 36.0-48.0 [facility] Comment on above: Performed By: #### C BC #### [facility] [address] [place] [address] Dr. Marianela Villa Hemoglobin (Bld) [Mass/Vol] 11.5 g/dL Critically low 12.0-16.0 [facility] Comment on above: Performed By: #### C BC #### [facility] [address] [place] [address] Dr. Marianela Villa IG # 0.01 10e3/ul Normal 0.00-0.03 [facility] Comment on above: Performed By: #### C BC #### [facility] [address] [place] [address] Dr. Marianela Villa IG % 0.2 % Normal 0.0-0.5 [facility] Comment on above: Performed By: #### C BC #### [facility] [address] [place] [address] Dr. Marianela Villa LYMPH # 1.7 103/ul Normal 1.2-3.8 [facility] Comment on above: Performed By: #### C BC #### [facility] [address] [place] [address] Dr. Marianela Villa Lymphocytes/100 WBC (Bld) 31.4 % Normal 20.5-60.0 [facility] Comment on above: Performed By: #### C BC #### [facility] [address] [place] [address] Dr. Marianela Villa MANUAL DIFF REQ NO Normal [facility] Comment on above: Performed By: #### C BC #### [facility] [address] [place] [address] Dr. Marianela Villa MCH (RBC) [Entitic mass] 26.6 pg Critically low 26.7-34.0 [facility] Comment on above: Performed By: #### C BC #### [facility] [address] [place] [address] Dr. Marianela Villa MCHC (RBC) [Mass/Vol] 31.6 g/dL Normal 29.9-35.2 [facility] Comment on above: Performed By: #### C BC #### [facility] [address] [place] [address] Dr. Marianela Villa MCV (RBC) [Entitic vol] 84.1 fL Normal 81.0-99.0 [facility] Comment on above: Performed By: #### C BC #### [facility] [address] [place] [address] Dr. Marianela Villa MONO # 0.4 103/ul Normal 0.3-0.8 [facility] Comment on above: Performed By: #### C BC #### [facility] [address] [place] [address] Dr. Marianela Villa Monocytes/100 WBC (Bld) 7.6 % Normal 1.7-12.0 [facility] Comment on above: Performed By: #### C BC #### [facility] [address] [place] [address] Dr. Marianela Villa NEUT # 3.3 103/ul Normal 1.4-6.5 [facility] Comment on above: Performed By: #### C BC #### [facility] [address] [place] [address] Dr. Marianela Villa Neutrophils/100 WBC (Bld) 59.0 % Normal 43.0-75.0 [facility] Comment on above: Performed By: #### C BC #### [facility] [address] [place] [address] Dr. Marianela Villa Platelet mean volume (Bld) [Entitic vol] 11.2 fL Normal 9.5-13.5 [facility] Comment on above: Performed By: #### C BC #### [facility] [address] [place] [address] Dr. Marianela Villa PLT 297 103/ul Normal 150-450 [facility] Comment on above: Performed By: #### C BC #### [facility] [address] [place] [address] Dr. Marianela Villa RBC 4.33 106/ul Normal 4.20-5.40 [facility] Comment on above: Performed By: #### C BC #### [facility] [address] [place] [address] Dr. Marianela Villa WBC 5.5 103/ul Normal 4.0-11.0 [facility] Comment on above: Performed By: #### C BC #### [facility] [address] [place] [address] Dr. Marianela Villa CBC AUTO DIFFon 02-18-2022 BASO # 0.0 103/ul Normal 0.0-0.1 [facility] Comment on above: Performed By: #### P REG #### [facility] [address] [place] [address] Dr. Marianela Villa Basophils/100 WBC (Bld) 0.3 % Normal 0.2-2.0 [facility] Comment on above: Performed By: #### P REG #### [facility] [address] [place] [address] Dr. Marianela Villa EO # 0.1 103/ul Normal 0.0-0.7 [facility] Comment on above: Performed By: #### P REG #### [facility] [address] [place] [address] Dr. Marianela Villa Eosinophils/100 WBC (Bld) 1.0 % Normal 0.9-7.0 [facility] Comment on above: Performed By: #### P REG #### [facility] [address] [place] [address] Dr. Marianela Villa Erythrocyte distribution width (RBC) [Ratio] 25.0 % Critically high 11.0-15.0 [facility] Comment on above: Performed By: #### P REG #### [facility] [address] [place] [address] Dr. Marianela Villa Hematocrit (Bld) [Volume fraction] 34.9 % Critically low 36.0-48.0 [facility] Comment on above: Performed By: #### P REG #### [facility] [address] [place] [address] Dr. Marianela Villa Hemoglobin (Bld) [Mass/Vol] 10.6 g/dL Critically low 12.0-16.0 [facility] Comment on above: Performed By: #### P REG #### [facility] [address] [place] [address] Dr. Marianela Villa IG # 0.02 10e3/ul Normal 0.00-0.03 [facility] Comment on above: Performed By: #### P REG #### [facility] [address] [place] [address] Dr. Marianela Villa IG % 0.3 % Normal 0.0-0.5 [facility] Comment on above: Performed By: #### P REG #### [facility] [address] [place] [address] Dr. Marianela Villa LYMPH # 1.8 103/ul Normal 1.2-3.8 [facility] Comment on above: Performed By: #### P REG #### [facility] [address] [place] [address] Dr. Marianela Villa Lymphocytes/100 WBC (Bld) 26.0 % Normal 20.5-60.0 [facility] Comment on above: Performed By: #### P REG #### [facility] [address] [place] [address] [address] Marianela Villa MANUAL DIFF REQ NO Normal [facility] Comment on above: Performed By: #### P REG #### [facility] [address] [place] [address] Dr. Marianela Villa MCH (RBC) [Entitic mass] 24.9 pg Critically low 26.7-34.0 [facility] Comment on above: Performed By: #### P REG #### [facility] [address] [place] [address] Dr. Marianela Villa MCHC (RBC) [Mass/Vol] 30.4 g/dL Normal 29.9-35.2 [facility] Comment on above: Performed By: #### P REG #### [facility] [address] [place] [address] Dr. Marianela iVlla MCV (RBC) [Entitic vol] 81.9 fL Normal 81.0-99.0 [facility] Comment on above: Performed By: #### P REG #### [facility] [address] [place] [address] Dr. Marianela Villa MONO # 0.4 103/ul Normal 0.3-0.8 [facility] Comment on above: Performed By: #### P REG #### [facility] [address] [place] [address] Dr. Marianela Villa Monocytes/100 WBC (Bld) 5.5 % Normal 1.7-12.0 [facility] Comment on above: Performed By: #### P REG #### [facility] [address] [place] [address] Dr. Marianela Villa NEUT # 4.5 103/ul Normal 1.4-6.5 [facility] Comment on above: Performed By: #### P REG #### [facility] [address] [place] [address] Dr. Marianela Villa Neutrophils/100 WBC (Bld) 66.9 % Normal 43.0-75.0 [facility] Comment on above: Performed By: #### P REG #### [facility] [address] [place] [address] [address] Marianela Villa Platelet mean volume (Bld) [Entitic vol] 11.1 fL Normal 9.5-13.5 [facility] Comment on above: Performed By: #### P REG #### [facility] [address] [place] [address] Dr. Marianela Villa PLT 198 103/ul Normal 150-450 [facility] Comment on above: Performed By: #### P REG #### [facility] [address] [place] [address] [address] Marianela Villa RBC 4.26 106/ul Normal 4.20-5.40 [facility] Comment on above: Performed By: #### P REG #### [facility] [address] [place] [address] Dr. Marianela Villa WBC 6.8 103/ul Normal 4.0-11.0 [facility] Comment on above: Performed By: #### P REG #### [facility] [address] [place] [address] Dr. Marianela Villa IRONon 02-18-2022 Iron [Mass/Vol] 57.0 ug/dL Normal 50.0-170.0 [facility] Comment on above: Performed By: #### C DANY, BUN #### [facility] [address] [place] [address] Dr. Marianela Villa OCC BLD IMMUNO SCREENon OCCULT BLOOD Negative Normal NEGATIVE [facility] Comment on above: Performed By: #### O BSCRN #### [facility] [address] [place] [address] Dr. Marianela Villa Physician Referralon 022 Physician Referral [id number]:127 Normal [facility] CBC AUTO DIFFon 02-02-2022 BASO # 0.0 103/ul Normal 0.0-0.1 [facility] Comment on above: Performed By: #### C BC #### [facility] [address] [place] [address] [address] Marianela Villa Basophils/100 WBC (Bld) 0.4 % Normal 0.2-2.0 [facility] Comment on above: Performed By: #### C BC #### [facility] [address] [place] [address] Dr. Marianela Villa EO # 0.1 103/ul Normal 0.0-0.7 [facility] Comment on above: Performed By: #### C BC #### [facility] [address] [place] [address] Dr. Marianela Villa Eosinophils/100 WBC (Bld) 1.3 % Normal 0.9-7.0 [facility] Comment on above: Performed By: #### C BC #### [facility] [address] [place] [address] Dr. Marianela Villa Erythrocyte distribution width (RBC) [Ratio] 17.7 % Critically high 11.0-15.0 [facility] Comment on above: Performed By: #### C BC #### [facility] [address] [place] [address] Dr. Marianela Villa Hematocrit (Bld) [Volume fraction] 30.3 % Critically low 36.0-48.0 [facility] Comment on above: Performed By: #### C BC #### [facility] [address] [place] [address] Dr. Marianela Villa Hemoglobin (Bld) [Mass/Vol] 9.1 g/dL Critically low 12.0-16.0 [facility] Comment on above: Performed By: #### C BC #### [facility] [address] [place] [address] Dr. Marianela Villa IG # 0.01 10e3/ul Normal 0.00-0.03 [facility] Comment on above: Performed By: #### C BC #### [facility] [address] [place] [address] Dr. Marianela Villa IG % 0.1 % Normal 0.0-0.5 [facility] Comment on above: Performed By: #### C BC #### [facility] [address] [place] [address] [address] Marianela Villa LYMPH # 1.9 103/ul Normal 1.2-3.8 [facility] Comment on above: Performed By: #### C BC #### [facility] [address] [place] [address] [address] Marianela Villa Lymphocytes/100 WBC (Bld) 28.6 % Normal 20.5-60.0 [facility] Comment on above: Performed By: #### C BC #### [facility] [address] [place] [address] Dr. Marianela Villa MANUAL DIFF REQ NO Normal [facility] Comment on above: Performed By: #### C BC #### [facility] [address] [place] [address] Dr. Marianela Villa MCH (RBC) [Entitic mass] 23.3 pg Critically low 26.7-34.0 [facility] Comment on above: Performed By: #### C BC #### [facility] [address] [place] [address] Dr. Marianela Villa MCHC (RBC) [Mass/Vol] 30.0 g/dL Normal 29.9-35.2 [facility] Comment on above: Performed By: #### C BC #### [facility] [address] [place] [address] Dr. Marianela Villa MCV (RBC) [Entitic vol] 77.5 fL Critically low 81.0-99.0 [facility] Comment on above: Performed By: #### C BC #### [facility] [address] [place] [address] Dr. Marianela Villa MONO # 0.5 103/ul Normal 0.3-0.8 [facility] Comment on above: Performed By: #### C BC #### [facility] [address] [place] [address] Dr. Marianela Villa Monocytes/100 WBC (Bld) 6.7 % Normal 1.7-12.0 [facility] Comment on above: Performed By: #### C BC #### [facility] [address] [place] [address] [address] Marianela Villa NEUT # 4.2 103/ul Normal 1.4-6.5 [facility] Comment on above: Performed By: #### C BC #### [facility] [address] [place] [address] Dr. Marianela Villa Neutrophils/100 WBC (Bld) 62.9 % Normal 43.0-75.0 [facility] Comment on above: Performed By: #### C BC #### [facility] [address] [place] [address] Dr. Marianela Villa Platelet mean volume (Bld) [Entitic vol] 11.0 fL Normal 9.5-13.5 [facility] Comment on above: Performed By: #### C BC #### [facility] [address] [place] [address] Dr. Marianela Villa PLT 284 103/ul Normal 150-450 [facility] Comment on above: Performed By: #### C BC #### [facility] [address] [place] [address] Dr. Marianela Villa RBC 3.91 106/ul Critically low 4.20-5.40 [facility] Comment on above: Performed By: #### C BC #### [facility] [address] [place] [address] Dr. Marianela Villa WBC 6.7 103/ul Normal 4.0-11.0 [facility] Comment on above: Performed By: #### C BC #### [facility] [address] [place] [address] Dr. Marianela Villa CRPon 02-02-2022 CRP [Mass/Vol] mg/L Normal <=1.0 [facility] Comment on above: Performed By: #### C DANY BUN #### [facility] [address] [place] [address] Dr. Marianela Villa FREE T3on 02-02-2022 FREE T3 2.06 pg/mlL Critically low 2.18-3.98 [facility] Comment on above: Performed By: #### C DANY BUN #### [facility] [address] [place] [address] Dr. Marianela Villa FREE T4on 02-02-2022 Free T4 [Mass/Vol] 0.89 ng/dL Normal 0.76-1.46 [facility] Comment on above: Performed By: #### P REG #### [facility] [address] [place] [address] Dr. Marianela Villa GLYCOHEMOGLOBIN A1Con 2021 ADA RECOMMENDATION SEE BELOW Normal [facility] Comment on above: Result Comment: ADA RECOMMENDED LIMIT 4.0 - 6.0 ADA THERAPEUTIC TARGET < 7.0 ACTION SUGGESTED > 7.0 Performed By: #### C DANY, BUN #### [facility] [address] [place] [address] Dr. Marianela Villa Glucose [Mass/Vol] 131 mg/dL Normal [facility] Comment on above: Performed By: #### C DANY, BUN #### [facility] [address] [place] [address] Dr. Marianela Villa HbA1c (Bld) [Mass fraction] 6.2 % Normal 4.5-6.2 [facility] Comment on above: Performed By: #### C DANY BUN #### [facility] [address] [place] [address] Dr. Marianela Villa IRONon 02-02-2022 Iron [Mass/Vol] 15.0 ug/dL Critically low 50.0-170.0 [facility] Comment on above: Performed By: #### P REG #### [facility] [address] [place] [address] Dr. Marianela Villa LIPID PROFILEon 02-02-2022 CHOL-HDL RATIO NORM SEE BELOW Normal [facility] Comment on above: Result Comment: 3.3 - 4.4 LOW RISK 4.4 - 7.1 AVERAGE RISK 7.1 - 11.0 MODERATE RISK >11.0 HIGH RISK Performed By: #### C DANY, BUN #### [facility] [address] [place] [address] Dr. Marianela Villa Cholesterol [Mass/Vol] 187 mg/dL Normal <=200 [facility] Comment on above: Performed By: #### C DANY, BUN #### [facility] [address] [place] [address] [address] Marianela Villa Cholesterol in HDL [Mass/Vol] 56 mg/dL Normal 40-60 [facility] Comment on above: Performed By: #### C DANY, BUN #### [facility] [address] [place] [address] [address] Marianela Villa Cholesterol in LDL [Mass/Vol] 114.6 mg/dL Normal [facility] Comment on above: Performed By: #### C DANY, BUN #### [facility] [address] [place] [address] [address] Marianela Villa Cholesterol.total/ Cholesterol in HDL [Mass ratio] 3.3 {ratio} Normal [facility] Comment on above: Performed By: #### C DANY, BUN #### [facility] [address] [place] [address] [address] Marianela Villa HDL NORMAL > or = 60 mg/dl - LO W CARDIOVASCULAR RISK <40 mg/dl - HIGH CARDIOVASCULAR RISK Normal [facility] Comment on above: Performed By: #### C DANY, BUN #### [facility] [address] [place] [address] Dr. Marianela Villa LDL CALC NORMAL SEE BELOW Normal [facility] Comment on above: Result Comment: <100 mg/dl OPTIMAL 100 - 129 mg/dl NEAR OR ABOVE OPTIMAL 130 - 159 mg/dl BORDERLINE HIGH 160 - 189 mg/dl HIGH >190 mg/dl VERY HIGH Performed By: #### C DANY, BUN #### [facility] [address] [place] [address] [address] Marianela Villa Triglyceride [Mass/Vol] 82 mg/dL Normal <=150 [facility] Comment on above: Performed By: #### C DANY, BUN #### [facility] [address] [place] [address] Dr. Marianela Villa VLDL CALC 16.4 mg/dL Normal [facility] Comment on above: Performed By: #### C DANY, BUN #### [facility] [address] [place] [address] [address] Marianela Villa MAGNESIUMon 11-01-2022 Magnesium [Mass/Vol] 2.0 mg/dL Normal 1.8-2.4 [facility] Comment on above: Performed By: #### C DANY, BUN #### [facility] [address] [place] [address] Dr. Marianela Villa PREG HCG QUALon 02-02-2022 , QUAL Negative Normal NEGATIVE [facility] Comment on above: Performed By: #### P REG #### [facility] [address] [place] [address] Dr. Marianela Villa PROF 14(COMP METB)on 022 Albumin [Mass/Vol] 4.0 g/dL Normal 3.4-5.0 [facility] Comment on above: Performed By: #### C DANY, BUN #### [facility] [address] [place] [address] Dr. Marianela Villa Albumin/Globulin [Mass ratio] 1.0 {ratio} Normal [facility] Comment on above: Performed By: #### C DANY, BUN #### [facility] [address] [place] [address] Dr. Marianela Villa ALP [Catalytic activity/Vol] 173 U/L Critically high 46-116 [facility] Comment on above: Performed By: #### C DANY, BUN #### [facility] [address] [place] [address] Dr. Marianela Villa ALT [Catalytic activity/Vol] 45 U/L Normal 14-59 [facility] Comment on above: Performed By: #### C DANY, BUN #### [facility] [address] [place] [address] Dr. Marianela Villa Anion gap [Moles/Vol] 12.9 mmol/L Normal [facility] Comment on above: Performed By: #### C DANY, BUN #### [facility] [address] [place] [address] Dr. Marianela Villa AST [Catalytic activity/Vol] 35 U/L Normal 15-37 [facility] Comment on above: Performed By: #### C DANY, BUN #### [facility] [address] [address] [address] Marianela Villa Bilirubin [Mass/Vol] 0.3 mg/dL Normal 0.2-1.0 [facility] Comment on above: Performed By: #### C DANY, BUN #### [facility] [address] [place] [address] Dr. Marianela Villa Calcium [Mass/Vol] 9.1 mg/dL Normal 8.5-10.1 [facility] Comment on above: Performed By: #### C DANY, BUN #### [facility] [address] [place] [address] Dr. Marianela Villa Chloride [Moles/Vol] 103 mmol/L Normal 98-107 [facility] Comment on above: Performed By: #### C DANY, BUN #### [facility] [address] [place] [address] Dr. Marianela Villa CO2 [Moles/Vol] 27.0 mmol/L Normal 21.0-32.0 [facility] Comment on above: Performed By: #### C DANY, BUN #### [facility] [address] [place] [address] Dr. Marianela Villa Creatinine [Mass/Vol] 0.70 mg/dL Normal 0.55-1.02 [facility] Comment on above: Performed By: #### C DANY, BUN #### [facility] [address] [place] [address] Dr. Marianela Villa EGFR-AF MALAGASY >60 Normal >=60 [facility] Comment on above: Performed By: #### C DANY, BUN #### [facility] [address] [place] [address] Dr. Marianela Villa EGFR-NON AF MALAGASY >60 Normal >=60 [facility] Comment on above: Performed By: #### C DANY, BUN #### [facility] [address] [place] [address] Dr. Marianela Villa Globulin (S) [Mass/Vol] 3.9 g/dL Normal [facility] Comment on above: Performed By: #### C DANY, BUN #### [facility] [address] [address] [address] Marianela Villa Glucose [Mass/Vol] 88 mg/dL Normal 74-106 [facility] Comment on above: Performed By: #### C DANY, BUN #### [facility] [address] [address] [address] Marianela Villa Potassium [Moles/Vol] 3.9 mmol/L Normal 3.5-5.1 [facility] Comment on above: Performed By: #### C DANY, BUN #### [facility] [address] [address] [address] Marianela Villa Protein [Mass/Vol] 7.9 g/dL Normal 6.4-8.2 [facility] Comment on above: Performed By: #### C DANY, BUN #### [facility] [address] [place] [address] Dr. Marianela Villa Sodium [Moles/Vol] 139 mmol/L Normal 136-145 [facility] Comment on above: Performed By: #### C DANY, BUN #### [facility] [address] [address] [address] Marianela Villa Urea nitrogen [Mass/Vol] 6.0 mg/dL Critically low 7.0-18.0 [facility] Comment on above: Performed By: #### C DANY, BUN #### [facility] [address] [address] [address] Marianela Villa Urea nitrogen/Creatinin e [Mass ratio] 8.6 mg/mg Normal [facility] Comment on above: Performed By: #### C DANY, BUN #### [facility] [address] [address] [address] Marianela Villa [facility] SED RATE 49 mm/hr Critically high <=20 [facility] Comment on above: Performed By: #### C BC #### [facility] [address] [address] [address] Marianela Villa TSHon 02-02-2022 TSH 1.378 uIU/mL Normal 0.358-3.74 0 [facility] Comment on above: Performed By: #### C DANY, BUN #### [facility] [address] [place] [address] Dr. Marianela Villa UA RANDOM W/MICROSCOPICon BACTERIA NONE SEEN Normal NONE SEEN The [facility] Comment on above: Performed By: #### P REG #### [facility] [address] [place] [address] Dr. Marianela Villa Bilirubin Ql (U) Negative Normal NEGATIVE [facility] Comment on above: Performed By: #### P REG #### [facility] [address] [place] [address] Dr. Marianela Villa CAST NONE SEEN Normal NONE SEEN [facility] Comment on above: Performed By: #### P REG #### [facility] [address] [place] [address] Dr. Marianela Villa Clarity (U) CLEAR Normal CLEAR [facility] Comment on above: Performed By: #### P REG #### [facility] [address] [place] [address] Dr. Marianela Villa Color (U) LT. YELLOW Normal YELLOW [facility] Comment on above: Performed By: #### P REG #### [facility] [address] [place] [address] Dr. Marianela Villa Crystals LM Nom (Urine sed) NONE SEEN Normal NONE SEEN [facility] Comment on above: Performed By: #### P REG #### [facility] [address] [place] [address] Dr. Marianela Villa Epithelial cells LM Ql (Urine sed) FEW Abnormal NONE SEEN /RARE [facility] Comment on above: Performed By: #### P REG #### [facility] [address] [place] [address] Dr. Marianela Villa Glucose Ql (U) Negative Normal NEGATIVE [facility] Comment on above: Performed By: #### P REG #### [facility] [address] [place] [address] Dr. Marianela Villa Hemoglobin Ql (U) Negative Normal NEGATIVE The [facility] Comment on above: Performed By: #### P REG #### [facility] [address] [place] [address] Dr. Marianela Villa Ketones Ql (U) Negative Normal NEGATIVE [facility] Comment on above: Performed By: #### P REG #### [facility] [address] [place] [address] Dr. Marianela Villa LEUKOCYTES Negative Normal NEGATIVE [facility] Comment on above: Performed By: #### P REG #### [facility] [address] [place] [address] Dr. Marianela Villa MUCOUS NONE SEEN Normal NONE SEEN [facility] Comment on above: Performed By: #### P REG #### [facility] [address] [place] [address] Dr. Marianela Villa Nitrite Ql (U) Negative Normal NEGATIVE [facility] Comment on above: Performed By: #### P REG #### [facility] [address] [place] [address] Dr. Marianela Villa pH (U) 6.5 [pH] Normal 5-9 [facility] Comment on above: Performed By: #### P REG #### [facility] [address] [place] [address] Dr. Marianela Villa RBC NONE SEEN Abnormal 0-2 [facility] Comment on above: Performed By: #### P REG #### [facility] [address] [place] [address] Dr. Marianela Villa SPEC GRAVITY <=1.005 Abnormal 1.005-<=1. 025 [facility] Comment on above: Performed By: #### P REG #### [facility] [address] [place] [address] Dr. Marianela Villa UA PROTEIN Negative Normal NEGATIVE/ TRACE [facility] Comment on above: Performed By: #### P REG #### [facility] [address] [place] [address] Dr. Marianela Villa Urobilinogen Qn (U) 0.2 {Trish'U}/dL Normal 0.2 - 1.0 [facility] Comment on above: Performed By: #### P REG #### [facility] [address] [address] [address] Marianela Villa WBC NONE SEEN Normal NONE SEEN [facility] Comment on above: Performed By: #### P REG #### [facility] [address] [address] [address] Marianela Villa VITAMIN B12on 02-02-2022 Cobalamin (Vitamin B12) [Mass/Vol] 630.0 pg/mL Normal 193.0-986. 0 [facility] Comment on above: Performed By: #### P REG #### [facility] [address] [address] [address] Marianela Villa VITAMIN D 25 OHon 02-02-2022 VIT D 25-OH 42.7 ng/mL Normal [facility] Comment on above: Performed By: #### P REG #### [facility] [address] [address] [address] Marianela Villa VIT D RANGES SEE BELOW Normal [facility] Comment on above: Result Comment: <20 ng/mL Vit D deficient 20 - <30 ng/mL Vit D insufficient 30 - 100 ng/mL Vit D sufficient >100 ng/mL Potential Toxicity Performed By: #### P REG #### [facility] [address] [address] [address] Marianela Villa [facility] Reporton 01-02-2018 Report Normal [facility] Comment on above: Performed By: #### D NASTUDY #### Performed at [facility], [address] [place] [id number] Vital Signs Date Time Vital Sign Value Performing Clinician Facility 01-02-2024 09:0400 Body height 167.6 [address] [facility] [address] [place] [address] 01-02-2024 09:01-0400 Body mass index (BMI) [Ratio] 41.92 kg/m2 [facility] 01-02-2024 09:-0400 Body temperature 98.49 [degF] [facility] [address] [place] [address] 01-02-2024 09:01-0400 Body weight 117.[address] 01-02-2024 09:01-0400 Diastolic blood pressure 54 mm[Hg] [address] 01-02-2024 09:01-0400 Heart rate 74 /min [facility] 01-02-2024 09:01-0400 Respiratory rate 16 /min Met 14 [facility] 01-02-2024 09:01-0400 SaO2% (BldA) [Mass fraction] 100 % Met 14 [facility] 01-02-2024 09:01-0400 Systolic blood pressure 114 mm[Hg] [facility] [address] [place] [address] 03-05-2022 13:19-0500 Blood Pressure Location [facility] [place] 03-05-2022 13:19-0500 Diastolic blood pressure 76 mm[Hg] [facility] [place] 03-05-2022 13:19-0500 Heart rate 70 /min [facility] [place] 03-05-2022 13:19-0500 Respiratory rate 16 /min [facility] [place] 03-05-2022 13:19-0500 Systolic blood pressure 120 mm[Hg] [facility] Encounters Encounter Date Encounter Type Care Provider Facility Start: 01-02-2024 End: 01-02-2024 Patient encounter procedure [facility] [address] [facility] Comment on above: Pre-op testing (Prim otilio Dx); Pelvic pain; Pelvic mass; Preop testing Start: 01-02-2024 End: 01-02-2024 Patient encounter status [facility] Start: 01-02-2024 End: 01-02-2024 ambulatory [facility] Start: 12-21-2023 Encounter for other preprocedural examination [facility] Start: 12-21-2023 Patient encounter status [facility] Start: 12-21-2023 End: 12-21-2023 ambulatory [facility] Start: 12-21-2023 Encounter for other preprocedural examination GURPREET DEJESUS [facility] Start: 12-14-2023 End: 12-14-2023 ambulatory LINDA AICHHOLZ Not Available Start: 12-01-2023 End: 12-01-2023 ambulatory JOHANNA BRANDT Not Available Start: 11-07-2023 End: 11-07-2023 ambulatory DYLAN RAJAN Not Available Start: 10-03-2023 End: 10-03-2023 ambulatory DYLAN RAJAN Not Available Start: 09-29-2023 End: 09-29-2023 ambulatory LINDA AICHHOLZ Not Available Start: 08-31-2023 End: 08-31-2023 ambulatory LINDA AICHHOLZ Not Available Start: 07-19-2022 Encounter for preprocedural laboratory examination DR DYLAN RAJAN . 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 [facility] Start: 07-09-2022 Encounter for preprocedural laboratory examination DR DYLAN RAJAN . [facility] Start: 07-01-2022 End: 07-02-[address] DYLAN RAJAN . Facility:[facility] Start: 07-01-2022 End: 07-02-2022 Encounter for preprocedural cardiovascular examination DR DYLAN RAJAN . Facility:[facility] Start: 05-05-2022 End: 05-06-2022 ambulatory [employer] P[employer] WORKER LINDA AICHHOLZ Facility:[facility] Start: 04-26-2022 End: 04-26-2022 ambulatory T[employer] POW[employer] WORKER LINDA AICHHOLZ Facility:[facility] Start: 04-16-2022 End: 04-17-2022 ambulatory T[employer] P[employer] WORKER LINDA AICHHOLZ Facility:[facility] Start: 04-14-2022 End: 04-15-2022 ambulatory Halley BARBOSA Facility:[facility] Start: 04-14-2022 End: 04-14-2022 Patient encounter procedure Halley BARBOSA General [facility] Start: 04-07-2022 End: 04-08-2022 ambulatory Halley BARBOSA Facility:CD:[id number] Start: 03-31-2022 End: 04-01-[address] HALLEY BARBOSA . 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 Facility:[facility] Start: 02-03-2022 ambulatory Halley BARBOSA Facility:[facility] Start: 02-02-2022 End: 02-03-2022 ambulatory YANG LERNER IVANOdilonREI Facility:[facility] Start: 01-02-2018 Patient encounter procedure NO PCP [facility] Procedures Date Procedure Procedure Detail Performing Clinician Start: 01-02-2024 Comprehensive metabolic panel Gurpreet henry MD Work Phone: Start: 01-02-2024 Ecg routine ecg w/least 12 lds trcg only w/o i&r Padam Giraldo MD Work Phone: Start: 04-07-2022 Colonoscopy Halley BARBOSA Start: 04-07-2022 Esophagogastroduodenoscopy Halley BARBOSA Start: 04-04-2008 section Halley BARBOSA Start: 04-04-2007 section Halley BARBOSA Extraction of wisdom tooth Ej BARBOSA Plan of Treatment Date Care Activity Detail Author Start: 01-01-2025 Adult BMI Screening Adult BMI Screen ing [facility] Start: 01-01-2025 Tobacco Screening Tobacco Screening [facility] Start: 01-31-2024 End: 01-31-2024 Patient encounter procedure 01/31/2024 11:30 AM EDT Office Visit [facility] [address] [facility] [address] [place] [address] [place], CASEY Melton [address], [facility] [address] [place] [address] [facility] Start: 01-13-2024 End: 01-13-2024 Admission to same day surgery center 01/13/2024 7:30 AM EDT - 01/13/2024 9:30 AM EDT [facility] [address] [place] [id number] [place] [address] [place] [address], [address] [place] [address] DAVINCI LEFT OOPHORECTOMY POSSIBLE RIGHT OOPHORECTOMY [20136 (CPT )] [facility] Comment on above: DAVINCI LEFT OOPHORE CTOMY POSSIBLE RIGHT OOPHORECTOMY [44596 (CPT )] Start: 01-13-2024 End: 01-13-2024 Laparoscopy w/rmvl adnexal structures DAVINCI OOPHORECTOMY PELVIC PAIN, PELVIC MASS 01/13/2024 7:30 AM EDT [facility] Start: 01-13-2024 Subsequent hospital visit by physician 01/13/2024 7:30 AM EDT Hospital Encounter [facility] [address] [facility] [address] Gurpreet Dejesus MD [address] [facility], [address] [place] [address] [facility] Start: 12-04-2023 COVID-19 Vaccine ( season) COVID-19 Vaccine ( season) [facility] Start: 12-04-2023 Influenza vaccination Influenza Vacc ine [facility] Start: 08-29-2001 Adult BMI Follow Up Plan Adult BMI Follow Up Plan [facility] Start: 1995 Depression Screening Depression Scre ening [facility] Start: 08-29-1994 DTaP,Tdap and Td Vaccines (5 - Tdap) DTaP,Tdap and Td Vaccines (5 - Tdap) [facility] Immunizations Immunization Date Immunization Notes Care Provider Fa cility 08-16-2020 SARS-CoV-2 (COVID-19 ) mRNA-1273 vaccine Halley BARBOSA [facility] [place] Comment on above: Result Comment: 2021: TPVALL 07-19-2020 SARS-CoV-2 (COVID-19 ) mRNA-1273 vaccine Halley BARBOSA General [facility] Comment on above: Result Comment: 2021: TPVALL NEGATED: Highlighted row has not occurred!03-05-2022 influenza virus vaccine, unspecified formulation Halley BARBOSA [facility] [place] Payers Date Payer Category Payer Private Health Insurance [employer] ETNA POS II [id number] 2021-Present [phone] [address] [place] [address] [id number] 1983 Unknown [id number] 2.16.840.1.818091.3.579.2 .727 1983 Unknown [id number] 2.16.840.1.326753.3.579.2 .727 1983 Unknown [id number] 2.16.840.1.707495.3.579.2 .727 1983 Unknown [id number] 2.16.840.1.375015.3.579.2 .593 1983 Unknown [id number] 2.16.840.1.359462.3.579.2 .593 1983 Unknown [id number] 2.16.840.1.937031.3.579.2 .593 1983 Unknown [id number] 2.16.840.1.693951.3.579.2 .593 1983 Unknown [id number] 2.16840.1.770047.3.579.2 .593 1983 Unknown [id number] 2.16.840.1.122730.3.579.2 .593 1983 Unknown [id number] 2.16840.1.645786.3.579.2 .593 1983 Unknown [id number] 2.16840.1.034216.3.579.2 .593 1983 Unknown [id number] 2.16840.1.043265.3.579.2 .593 1983 Unknown [id number] 2.16.840.1.177740.3.579.2 .593 1983 Unknown [id number] 2.16.840.1.746311.3.579.2 .593 1983 Unknown [id number] 2.16.840.1.511967.3.579.2 .593 1983 Unknown [id number] 2.16.840.1.217175.3.579.2 .593 1983 Unknown [id number] 2.16.840.1.521809.3.579.2 .9 1983 Unknown [id number] 2.16.840.1.951021.3.579.2 .9 1983 Unknown [id number] 2.16.840.1.849913.3.579.2 .9 1983 Unknown [id number] 2.16.840.1.442492.3.579.2 .1258 1983 Unknown [id number] 2.16.840.1.299524.3.579.2 .1258 1983 Unknown [id number] 2.16.840.1.619024.3.579.2 .1258 1983 Unknown [id number] 2.16.840.1.795821.3.579.2 .6 1983 Unknown [id number] 2.16.840.1.835701.3.579.2 .6 1961 Private Health Insurance [id number] Social History Date Type Detail Facility Start: 03-05-2022 End: 12-21-2023 Tobacco smoking status Never smoked tobacco (finding) [facility] [place] Tobacco smoking status Never Gener al [facility] [place] Start: 01-02-2024 Sex Assigned At Female F [facility] Start: 12-21-2023 Tobacco use and exposure Smokeless tobacco non-user [facility] Start: 01-02-2024 Alcoholic beverage intake Current drinker of alcohol (finding) [facility] Start: 01-02-2024 History of Social function [facility] Start: 01-02-2024 Alcohol Comment social [facility] Start: 1985 Sex assigned at Not on file P [facility] Functional Status Date Assessment Result Facility 03-05-2022 Functional Status N/A [facility] [place] Instructions 01-02-2024 Patient Instructions Note Date & Type Note Facility 01-02-2024 Instructions Johanna Gonzalez RN - 01/02/2024 8:45 AM EDT Your surgery/procedure is scheduled at [facility] on 01/13/2024 at 0730 Arrival [id number] [facility] Address: [address] [place] [address]. [address] [address] [address] Parking lot located on [facility]. Report to the Entrance B. Check in at the information desk the surgery. The waiting room located on the second floor. If you have any questions prior to surgery, please call Pre-Admission Clinic at [phone] between 7:30 am and 4:30 pm Tuesday through Tuesday. If you have questions the morning of surgery, please call the Pre-op Department at [phone]. Notify your SURGEON if you develop any illness such as a cold, cough, fever, sore throat, vomiting or are hospitalized between now and your surgery. Medication Instructions (Do not stop your medications without consulting the prescribing physician). Take the following medications the morning of surgery with a sip of water: Buspar, Klonopin Diabetic or Weight loss medications: HOLD n/a LAST DOSE n/a Take inhalers as prescribed the morning of surgery. Due to the risk associated with these medications. If these medications are not held per instruction below, your surgery is at an increased risk for cancellation. SGLT2 Medications- Hold 3 days prior to surgery: Jardiance, Empagliflozin, Farxiga, Dapagliflozin, Invokana, Canagliflozin GLP-1 Medications (Injection or Pill)- If taken daily hold day of surgery. If taken weekly, hold 1 week prior to surgery: Adlyxin, Byetta, Bydureon, Ozempic, Rybelsus,Trulicity, Victoza, Wegovy, Lixisenatide, Exenatide, Semaglutide, Dulaglutide, Liraglutide GIP/GLP-1(Injection or Pill)- If taken daily hold day of surgery. If taken weekly, hold 1 week prior to surgery: Mounjaro . Blood thinners: Please contact your prescribing physician regarding a stop/hold date for these medications. Medications such as Coumadin, Heparin, Aspirin, Plavix, Eliquis, Pradaxa Diabetics: If you take insulin, contact your prescribing doctor for instructions on how to manage this the night before and the morning of surgery. Non-steriodal Anti-Inflammatory Drugs (NSAIDS)- Hold 3 days prior to surgery unless otherwise directed by your surgeon. Vitamins/Herbal Products: You may continue to take your prescribed vitamins such as potassium, iron, vitamin B, vitamin C, or multivitamin unless specifically instructed by your surgeon to hold. STOP taking all herbal products/teas one week prior to your surgery. Marijuana: Stop marijuana 72 hours prior to surgery, stop CBD oil 48 hours prior to surgery. If you have been given bowel prep instructions by your surgeon, please call the surgeon's office with any questions about these instructions. What do I do the day of Surgery? Age 2 through adult - Stop all solids by midnight, You may have clear liquids up to 2 hours before surgery, unless otherwise instructed by your surgeon. Clear liquids are: water, sports drinks such as Gatorade or G2, or apple juice. You may NOT have: tube feedings, dairy products, alcoholic beverages, orange juice, or any liquids with solids or pulp in it. If applicable, shower again with CHG soap the morning of your surgery. If you received a green plastic bracelet, bring it with you the day of surgery and your nurse will put it on you. In order to help prevent infection post-operatively, you may be asked to use a CHG mouthwash when you arrive to the Pre-op area. Your nurse will provide instruction the morning of. What do I need to do to prepare for surgery? If you will be going home the same day as your surgery, arrange for an adult over [address] Riding in a bus or taxi by yourself is not permitted. You should not smoke or drink alcohol 24 hours before your surgery. Alcohol thins the blood and may cause bleeding problems during surgery. Smoking increases the risk of breathing problems after surgery. Do not use lotions, creams, powders, perfume, make up, cologne or after-shaves day of surgery. Remove ALL jewelry including wedding rings, body piercings (including dermal piercings ,hair extensions that contain metal, nail english, make-up, and contact lens. You may brush your teeth the morning of surgery, but do not swallow the water. Wear your dentures and partial plates to the hospital (no adhesive). Shower the night the before. If applicable, use the CHG (chlorhexidine gluconate) soap or wipes What should I bring to the hospital? If you received a green plastic bracelet, bring it with you the day of surgery and your nurse will put it on you. Eyeglass or contact lens case If you will be spending the night, please bring personal care items and leave them in the car until you are taken to your room after surgery. Leave ALL valuables at home. If any of these instructions conflict with those you received from the surgeon, please seek clarification from your surgeon's office. DEEP BREATHING EXERCISES This exercise helps promote good air exchange and helps to prevent pneumonia after surgery. Breathe in slowly and deeply through the nose. Hold your breath for a few seconds and then exhale slowly through the mouth. Repeat this three times and then cough.Coughing helps to clear your lungs. If you have had a surgery with an incision into your abdomen or chest, press gently against your incision with a pillow or a folded blanket when you cough. Please be aware - it may not be melgoza to cough following some types of surgeries involving the eyes, ears, sinuses and throat. Always follow your doctor's instructions. LEG EXERCISE These exercises help promote good circulation and help to prevent blood clots after surgery. Point your toes to the ceiling and then point them to the wall. Do this slowly about 15-20 times. You may also move your feet in circles. Do the exercise that is most comfortable for you. If you have had surgery involving your shoulder or arm, we recommend you move your fingers. PRACTICING We ask that you begin practicing these exercises before your surgery. After surgery try to do both exercises at least every 2 hours during the day and early evening. SURGICAL SITE INFECTION PREVENTION What is a Surgical Site Infection? Infection can happen to the area of the body where surgery is done. This is called a surgical site infection (SSI). A SSI does not happen very often. Can SSIs be treated? Antibiotics are used to treat SSI. Some patients may need another surgery to treat the infection. The doctor will discuss treatment options with you. What are some of the things that hospitals are doing to prevent SSIs? Soap and water or alcohol hand rub are used before and after caring for each patient. Special soap is used to clean surgery workers hands and arms just before the surgery. Masks, gowns, gloves and hair covers are worn during the surgery to keep the area clean. Hair in the surgery area may be removed with clippers (not razors). A special soap that kills germs is used to clean the skin at the surgery site. Antibiotics may be given before the surgery starts. What can you do to prevent SSIs? Before surgery: You may be asked to shower or bathe with a special soap that kills germs the night before and the day of surgery. Use the soap as you were told. If you smoke, stop or cut down. Ask your doctor about ways to quit. Do not shave near where you will have surgery. Shaving can irritate the skin and make it easier to get and infection. After surgery: Be sure that the doctors and nurses clean their hands before and after touching you. Be sure your family and friends clean their hands before and after visiting you. Do not be afraid to remind them. * Care for your wound at home as told by your doctor or nurse * Call your doctor right away if you have fever, redness, increased pain, or drainage at the surgery site. Further questions? Contact the doctor, nurse or the Infection Prevention and Control department if you have any questions. PATIENT RIGHTS AND RESPONSIBILITIES As a patient at [facility], you have the right to: Receive medical care and be informed of who is taking care of you Be treated with dignity and respect Have a family member/business office representative of choice and your physician notified of your admission Receive information and actively participate in decisions about your care and treatment Refuse care, treatment and services Decide who may provide your support and speak for you Access gnosticism and spiritual services Participate in ethical issues and questions about your care Receive private and confidential care Have appropriate assessment and management of your pain Know guest visitation restrictions or limitations Have an advance directive Access protective services Consent or refuse to participate in research studies or production or recordings, films or other images Have resolution of your complaints Receive information of hospital charges and payment methods Patient/patient business office representative responsibilities are to: Provide information about health status to facilitate care, treatment and services Follow the treatment, plan, keep appointments and speak up when you do not understand the plan Respect the rights of other patients and healthcare personnel Follow organizational rules and regulations that support quality care and a safe environment Fulfill financial obligations as promptly as possible Bathing Before Surgery- Patients greater than 2 months of age You can help to lower your chance of infection at the site of your surgery by showering or bathing with a special soap called chlorhexidine gluconate (CHG). Germs live on your skin. This special soap will help lower the amount of germs so they do not get into your surgery site. Special points to know: Do not use this soap if you know that you are allergic to CHG. Shower or bathe with CHG the night before and the morning of surgery. Do not shave the area of your body where the surgery will be done within 7 days of surgery. The CHG may make your skin a little dry, but do not use lotion. Steps for Bathing: Wash your hair as usual with your normal shampoo. Rinse your hair and body well after you shampoo to get rid all of the shampoo. Wash gently with the CHG from the neck down, but do not scrub the skin to hard. Be sure to wash the area of your surgery very well. If showering, turn the water off while washing and then turn the water back onto rinse. Do not get CHG in the genital (private) area. Do not get CHG in the eyes, ears, nose or mouth. (If the soap gets into the eyes, flush them immediately with water). Do not wash with regular soap after CHG is used. Pat skin dry with a soft, clean towel. Patient should sleep in freshly laundered night clothes and report for surgery in clean clothes. documented in this encounter [facility] Clinical Note 07-16-2022 Note Date & Type Note Facility 07-16-2022 Note OP Note OPERATION DATE: 07/16/2022 ADDENDUM: Please note that a left ovarian cystectomy was performed using the LigaSure apparatus. [facility] Clinical Note 07-16-2022 Note Date & Type Note Facility 07-16-2022 Note OPERATIVE NOTE OPERATION DATE: 07/26/2022 PROCEDURE: Robotic assisted laparoscopic hysterectomy with right salpingectomy, left cystectomy of endometrioma and cystoscopy. PREOPERATIVE DIAGNOSIS: Menorrhagia, dysmenorrhea, pelvic pain, dyspareunia. POSTOPERATIVE DIAGNOSIS: Menorrhagia, dysmenorrhea, pelvic pain, dyspareunia including a left ovarian endometrioma. ANESTHESIA: General. SURGEON: Dylan Rajan D.O. CRUTCHING CONTRACTOR: PJ Quevedo URINE OUTPUT: Yellow and clear. [...] Anesthesia first. Patient tolerated procedure well. [facility] Clinical Note 04-07-2022 Note Date [...] pathology results. CC: Linda Redmond CNP [facility] Clinical Note 03-05-2022 Note Date [...] vaccine 07/19/2020 Recorded 2022-03-03: TPVALL [facility] Comment on above: Result Comment: Elec tronically Signed By: BENITA GUTIERREZ, Halley Smith\Date and Time Signed: 03/05/22 13:57 EST Evaluation + Plan note Note Date & Type Note Facility Evaluation + Plan note No data available for this section General Surgery [facility] Evaluation note Note Date & Type Note Facility Evaluation note Diagnosis Pre-op testing- Primary Unspecified pre-operative examination Pelvic pain Pelvic mass Abdominal or pelvic swelling, mass or lump, unspecified site Preop testing Unspecified pre-operative examination documented in this encounter [facility] Hospital Discharge instructions Note Date & Type Note Facility Hospital Discharge instructions No data available for this section General Surgery [place] Progress note Note Date & Type Note Facility Progress note No data available for this section General Surgery [place] Summary Purpose Family History No Family History Records FoundNo Family History Records FoundNo Family History Records FoundNo Family History Records FoundNo Family History Records FoundNo Family History Records Found Advance Directives No Advanced Directives Records FoundNo Advanced Directives Records FoundNo Advanced Directives Records FoundNo Advanced Directives Records FoundNo Advanced Directives Records FoundNo Advanced Directives Records Found Reason for Referral Specialty Diagnoses / Procedures Referred By Contac t Referred To Contact Diagnoses Pre-op testing Procedures Follow anesthesia guideines Kandice Cerrato, HAND BOBBIN CLEANER-TNT POWDER WORKER [address] [place] [address] Referral ID Status Reason Start Date Expiration Date V isits Requested Visits Authorized [id number] Pending Review 01/02/2024 01/01/2025 1 1 Specialty Diagnoses / Procedures Referred By Contac t Referred To Contact Diagnoses Pre-op testing Procedures ECG 12 lead Padma Giraldo MD [address] [place] [address] Referral ID Status Reason Start Date Expiration Date V isits Requested Visits Authorized [id number] Pending Review 01/02/2024 01/01/2025 1 1 Additional Source Comments INFORMATION SOURCE (unrecogn ized section and content) DATE CREATED AUTHOR 05/16/2018 [facility] DATE CREATED AUTHOR AUTHOR'S ORGANIZ ATION 04/17/2022 [facility] DATE CREATED AUTHOR AUTHOR'S ORGANIZ ATION 08/03/2022 [facility] DATE CREATED AUTHOR AUTHOR'S ORGANIZ ATION 12/16/2023 [facility] EP[facility] DATE CREATED AUTHOR AUTHOR'S ORGANIZ ATION 12/23/2023 [facility] DATE CREATED AUTHOR AUTHOR'S ORGANIZ ATION 01/02/2024 [facility] Patient Care team informatio n (unrecognized section and content) Technical Fellow Relationship Specialty Start Date End Date Linda Redmond, HAND BOBBIN CLEANER-TNT POWDER WORKER [address] [place] [address] PCP - General Nurse Practitioner 01/02/24 FOR RECORDS PERTAINING TO PATIENTS WHO ARE [...] BE BASED ON THE PRIMARY CLINICAL RECORDS. [employer] [facility]. provides no warranty or guarantee of the accuracy or completeness of information in this document.
[2024-01-09 11:34] LABS: Gamma Glutamyl Transpeptidase 479 U/L (8-55)
== END 2024-01-09 10:14 | disposition home or self-care (01) ==
LOC: LAB 10:15
PROVIDERS: PCP Nurse Practitioner; Visit Provider Nurse Practitioner
DX: R74.8 Abnormal levels of other serum enzymes (principal)
CPT/HCPCS: 36415; 82977

== ENCOUNTER 2024-01-11 08:48 | Outpatient (OUT) | payer OTHER, SELFPAY ==
--- NOTE | 2024-01-11 08:53 | US_ITS ---
The [address] [address] Patient Name: ANTONIO MOY MRN: [id number] date: 1985 Sex: F Assigned Patient Location: [place] Current Patient Location: [place] Accession/Order Number: [id number] Exam Date: 01/11/2024 09:00 Report Date: 01/11/2024 10:25 At the request of: YANN ESTRADA Procedure: US right upper quadrant EXAMINATION: US right upper quadrant HISTORY: Alkaline Phosphate Elevation, Elevated Serum gamma glutamyl ; abnormal liver lab values COMPARISON: CT abdomen pelvis 12/16/2023 TECHNIQUE: Transabdominal evaluation of the right upper quadrant. FINDINGS: LIVER: Slightly increased echogenicity suggestive of fatty infiltration.. Color Doppler demonstrates patent hepatic veins. PORTAL VEIN: Duplex Doppler demonstrates normal hepatopetal flow pattern with flow velocity averaging 37 cm/s. GALLBLADDER: Numerous 5 mm stones partially filling the gallbladder. 2 stones adherent to the anterior wall versus polyps, 4 mm. No wall thickening or free fluid. Negative sonographic Longo's sign. BILIARY: No abnormal dilation or stones. Common bile duct diameter is within normal limits. PANCREAS: No visible mass, abnormal atrophy, or duct dilation. KIDNEY: No hydronephrosis. No visible mass or stones. Size: 10.2 x 5.0 x 5.2 cm US/US right upper quadrant IMPRESSION: 1. Cholelithiasis and possible gallbladder polyps. 2. Mild fatty infiltration of liver. Electronically authenticated by: CEFERINO LUDWIG Date: 01/11/2024 10:25
--- OUTSIDE RECORDS SUMMARY | 2024-01-11 08:54 | XMS_ITS | CCD ---
Author Organization [facility] Care Team Providers Care Frame Wirer Name Role Phone PCP, NO Primary Care Unavailable MENDEL CORADO Attending Unavailable MENDEL CORADO Referring Unavailable AICLINDA SERVIN Primary Care Physician [phone] Halley BARBOSA Attending Unavailable AICHLINDA MINAYA Referring Unavailabl e Halley BARBOSA Attending Unavailable Halley BARBOSA Attending Unavailable Halley BARBOSA Referring Unavailable AICHHOLZ, OPERATING ENGINEER LINDA Primary Care Unavailable AICHHOLZ, OPERATING ENGINEER LINDA Admitting Unavailable AICHHOLZ, OPERATING ENGINEER LINDA Consulting Unavailable AICHHOLZ, OPERATING ENGINEER LINDA Attending Unavailable AICHHOLZ, OPERATING ENGINEER LINDA Admitting Unavailable AICHHOLZ, OPERATING ENGINEER LINDA Consulting Unavailable AICHHOLZ, OPERATING ENGINEER LINDA Attending Unavailable AICHHOLZ, OPERATING ENGINEER LINDA Primary Care Unavailable AICHHOLZ, OPERATING ENGINEER LINDA Consulting Unavailable AICHHOLZ, OPERATING ENGINEER LINDA Attending Unavailable AICHHOLZ, OPERATING ENGINEER LINDA Admitting Unavailable AICHHOLZ, OPERATING ENGINEER LINDA Primary Care Unavailable DR TODD DORANTES Consulting Unavailable KIANA CHURCH Consulting Unavailable AICHHOLZ, OPERATING ENGINEER LINDA Consulting Unavailable AICHHOLZ, OPERATING ENGINEER LINDA Attending Unavailable AICHHOLZ, OPERATING ENGINEER LINDA Admitting Unavailable AICHHOLZ, OPERATING ENGINEER LINDA Primary Care Unavailable DR TODD DORANTES Consulting Unavailable NILL ., DR ROWLEY Attending Unavailable NILL ., DR ROWLEY Admitting Unavailable AICHHOLZ, OPERATING ENGINEER LINDA Primary Care Unavailable NILL ., DR ROWLEY Consulting Unavailable MINGO WHITMAN, VLAD Consulting Unavailable ALDO ELIZABETH Consulting Unavailable JED LINK Consulting Unavailable NILL ., DR ROWLEY Admitting Unavailable NILL ., DR ROWLEY Consulting Unavailable AICHHOLZ, OPERATING ENGINEER LINDA Primary Care Unavailable NILL ., DR ROWLEY Attending Unavailable AICHHOLZ, OPERATING ENGINEER LINDA Primary Care Unavailable RENZO ., DR RICHARDSON Admitting Unavailable RENZO ., DR RICHARDSON Consulting Unavailable RENZO ., DR RICHARDSON Attending Unavailable RENZO ., DR RICHARDSON Consulting Unavailable RENZO ., DR RICHARDSON Attending Unavailable RENZO ., DR RICHARDSON Admitting Unavailable AICHHOLZ, OPERATING ENGINEER LINDA Primary Care Unavailable AICHHOLZ, OPERATING ENGINEER LINDA Primary Care Unavailable RENZO ., DR RICHARDSON Consulting Unavailable RENZO ., DR RICHARDSON Attending Unavailable RENZO ., DR RICHARDSON Admitting Unavailable ROBERT HOPKINS Consulting Unavailable ABDI GALVAN Consulting Unavailable AICHHOLZ, OPERATING ENGINEER LINDA Primary Care Unavailable AICHHOLZ, OPERATING ENGINEER LINDA Attending Unavailable AICHHOLZ, OPERATING ENGINEER LINDA Admitting Unavailable AICHHOLZ, OPERATING ENGINEER LINDA Consulting Unavailable AICHHOLZ, OPERATING ENGINEER LINDA Consulting Unavailable AICHHOLZ, OPERATING ENGINEER LINDA Attending Unavailable AICHHOLZ, OPERATING ENGINEER LINDA Admitting Unavailable AICHHOLZ, OPERATING ENGINEER LINDA Primary Care Unavailable AICHHOLZ, OPERATING ENGINEER LINDA Admitting Unavailable AICHHOLZ, OPERATING ENGINEER LINDA Primary Care Unavailable AICHHOLZ, OPERATING ENGINEER LINDA Consulting Unavailable AICHHOLZ, OPERATING ENGINEER LINDA Attending Unavailable AICHHOLZ, OPERATING ENGINEER LINDA Primary Care Unavailable AICHHOLZ, OPERATING ENGINEER LINDA Admitting Unavailable AICHHOLZ, OPERATING ENGINEER LINDA Consulting Unavailable AICHHOLZ, OPERATING ENGINEER LINDA Attending Unavailable GURPREET DEJESUS Attending Unavailable GURPREET DEJESUS Referring Unavailable AICHHOLZ, LINDA J Primary Care Unavailable Aichholz BICYCLE TAXI DRIVER-OPERATING ENGINEER, Linda J Primary Care Provider AICHEMELYZ, LINDA Attending Unavailable AICHHOLZ, LINDA Attending Unavailable DYLAN RAJAN Attending Unavailable DYLAN RAJAN Attending Unavailable JOHANNA BRANDT Attending Unavailable AICHHOLZ, LINDA Attending Unavailable AICHHOLZ, LINDA Attending Unavailable Allergies Allergy Classification Reported Allergen(s) Allergy Type Date of Onset Reaction(s) Facility (6 sources) Cephalexin; Translations: [cephalexin] Drug Allergy 4 Syncope (disorder), Syncope General [facility] (2 sources) Cephalexin Drug Allergy [facility] Repository Medications Current Medications Medication Drug Class(es) Dates Sig (Normalized) Sig (Original) busPIRone hydrochloride 15 mg oral tablet (3 sources) Start: 03-03-2022 busPIRone 15 mg Tab [...] Refill(s) 0 Start Date: 03/03/22 Status: Ordered gltyudcakgzk-Gh-ecir-m inerals tablet (1 source) take 1 tablet by mouth in the morning evdjtiztqlol-Xd-dwml-m inerals tablet Take 1 tablet by mouth [...] Onset: 04-14-2022 Other aftercare (1 source) 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; Translations: [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] Onset: 08-02-2022 Episodic Other [...] Range Facility CBC AND AUTO DIFFon 01-02-20 ABSOLUTE BASOPHIL 0.1 X10E9/L Normal 0.0-0.2 [facility] Comment on above: Performed By: #### C BCA, CMP #### [facility] ([id number]) [address] [place] [address] ABSOLUTE NEUTROPHIL 5.3 X10E9/L Normal 1.5-6.6 [facility] Comment on above: Performed By: #### C BCA, CMP #### [facility] ([id number]) [address], [address] [place] [address] Basophils/100 WBC (Bld) 1.1 % Normal [facility] Comment on above: Performed By: #### C BCA, CMP #### [facility] ([id number]) [address], [address] [place] [address] Eosinophils (Bld) [#/Vol] 0.1 10*3/uL Normal 0.0-0.4 [facility] Comment on above: Performed By: #### C BCA, CMP #### [facility] ([id number]) [address] [place] [address] Eosinophils/100 WBC (Bld) 1.4 % Normal [facility] Comment on above: Performed By: #### C BCA, CMP #### [facility] ([id number]) [address] [place] [address] Erythrocyte distribution width (RBC) [Ratio] 14.2 % Normal 11.5-15.0 [facility] Comment on above: Performed By: #### C BCA, CMP #### [facility] ([id number]) [address] [place] [address] Hematocrit (Bld) [Volume fraction] 41.0 % Normal 35-47 [facility] Comment on above: Performed By: #### C BCA, CMP #### [facility] ([id number]) [address], [address] [place] [address] Hemoglobin (Bld) [Mass/Vol] 14.1 g/dL Normal 11.7-15.5 [facility] Comment on above: Performed By: #### C BCA, CMP #### [facility] ([id number]) [address] [place] [address] Lymphocytes (Bld) [#/Vol] 2.1 10*3/uL Normal 1.0-3.5 [facility] Comment on above: Performed By: #### C BCA, CMP #### [facility] ([id number]) [address] [place] [address] Lymphocytes/100 WBC (Bld) 25.7 % Normal [facility] Comment on above: Performed By: #### C BCA, CMP #### [facility] ([id number]) [address] [place] [address] MCH (RBC) [Entitic mass] 31.9 pg Normal 27-34 [facility] Comment on above: Performed By: #### C BCA, CMP #### [facility] ([id number]) [address] [place] [address] MCHC (RBC) [Mass/Vol] 34.3 g/dL Normal 32-36 [facility] Comment on above: Performed By: #### C BCA, CMP #### [facility] ([id number]) [address] [place] [address] MCV (RBC) [Entitic vol] 93 fL Normal 80-100 [facility] Comment on above: Performed By: #### C BCA, CMP #### [facility] ([id number]) [address] [place] [address] Monocytes (Bld) [#/Vol] 0.5 10*3/uL Normal 0-0.9 [facility] Comment on above: Performed By: #### C BCA, CMP #### [facility] ([id number]) [address] [place] [address] Monocytes/100 WBC (Bld) 6.1 % Normal [facility] Comment on above: Performed By: #### C BCA, CMP #### [facility] ([id number]) [address] [place] [address] Neutrophils/100 WBC (Bld) 65.7 % Normal [facility] Comment on above: Performed By: #### C BCA, CMP #### [facility] ([id number]) [address] [place] [address] Platelet mean volume (Bld) [Entitic vol] 9.7 fL Normal 7-12 [facility] Comment on above: Performed By: #### C BCA, CMP #### [facility] ([id number]) [address] [place] [address] Platelets (Bld) [#/Vol] 188 10*3/uL Normal 150-450 [facility] Comment on above: Performed By: #### C BCA, CMP #### [facility] ([id number]) [address] [place] [address] RBC COUNT 4.42 X10E12/L Normal 3.80-5.20 [facility] Comment on above: Performed By: #### C BCA, CMP #### [facility] ([id number]) [address] [place] [address] WBC (Bld) [#/Vol] 8.1 10*3/uL Normal 4.0-11.0 [facility] Comment on above: Performed By: #### C BCA, CMP #### [facility] ([id number]) [address] [place] [address] CBC with auto diffon 024 Basophils (Bld) [...] for nucl RBC Auto (Bld) [#/Vol] 8.1 [facility] COMPREHENSIVE METABOLIC PANE Jeramy 01-02-2024 Albumin [Mass/Vol] 4.4 g/dL Normal 3.2-5.3 [facility] Comment on above: Performed By: #### C BCA, CMP #### [facility] ([id number]) [address] [place] [address] ALP [Catalytic activity/Vol] 157 U/L High 39-130 [facility] Comment on above: Performed By: #### C BCA, CMP #### [facility] ([id number]) [address] [place] [address] ALT [Catalytic activity/Vol] 51 U/L High 0-31 [facility] Comment on above: Performed By: #### C BCA, CMP #### [facility] ([id number]) [address] [place] [address] Anion gap [Moles/Vol] 9 mmol/L Normal 5-15 [facility] Comment on above: Performed By: #### C BCA, CMP #### [facility] ([id number]) [address] [place] [address] AST [Catalytic activity/Vol] 51 U/L High 0-41 [facility] Comment on above: Performed By: #### C BCA, CMP #### [facility] ([id number]) [address] [place] [address] Bilirubin [Mass/Vol] 0.3 mg/dL Normal 0.3-1.2 [facility] Comment on above: Performed By: #### C BCA, CMP #### [facility] ([id number]) [address] [place] [address] Calcium [Mass/Vol] 9.8 mg/dL Normal 8.5-10.5 [facility] Comment on above: Performed By: #### C BCA, CMP #### [facility] ([id number]) [address] [place] [address] Chloride [Moles/Vol] 104 mmol/L Normal 98-109 [facility] Comment on above: Performed By: #### C BCA, CMP #### [facility] ([id number]) [address] [place] [address] CO2 [Moles/Vol] 25 mmol/L Normal 22-32 [facility] Comment on above: Performed By: #### C BCA, CMP #### [facility] ([id number]) [address] [place] [address] Creatinine [Mass/Vol] 0.86 mg/dL Normal 0.40-1.00 [facility] Comment on above: Result Comment: METH OD TRACEABLE TO IDMS STANDARD Performed By: #### C BCA, CMP #### [facility] ([id number]) [address] [place] [address] GFR/1.73 sq M.predicted among non-blacks MDRD (S/P/Bld) [Vol rate/Area] 88 mL/min/{1.73_m2} Normal >59 [facility] Comment on above: Result Comment: Reported eGFR is based on the CKD-EPI 2020 equation that does not use a race coefficient. Performed By: #### C BCA, CMP #### [facility] ([id number]) [address] [place] [address] Glucose [Mass/Vol] 92 mg/dL Normal 65-99 [facility] Comment on above: Performed By: #### C BCA, CMP #### [facility] ([id number]) [address] [place] [address] Potassium [Moles/Vol] 4.3 mmol/L Normal 3.5-5.0 [facility] Comment on above: Performed By: #### C BCA, CMP #### [facility] ([id number]) [address] [place] [address] Protein [Mass/Vol] 7.7 g/dL Normal 6.0-8.0 [facility] Comment on above: Performed By: #### C BCA, CMP #### [facility] ([id number]) [address] [place] [address] Sodium [Moles/Vol] 138 mmol/L Normal 134-146 [facility] Comment on above: Performed By: #### C BCA, CMP #### [facility] ([id number]) [address] [place] [address] Urea nitrogen [Mass/Vol] 13 mg/dL Normal 5-23 [facility] Comment on above: Performed By: #### C BCA, CMP #### [facility] ([id number]) [address] [place] [address] Comprehensive metabolic pane jeramy 01-02-2024 Albumin [Mass/Vol] 4.4 g/dL 3.2 - 5.3 g/dL [facility] ALP [Catalytic activity/Vol] 157 U/L High 39 - 130 U/L [facility] ALT No additional P-5'-P [Catalytic activity/Vol] 51 U/L High 0 - 31 U/L [facility] Anion gap [Moles/Vol] 9 mmol/L 5 - 15 mmol/L [facility] AST [Catalytic activity/Vol] 51 U/L High 0 - 41 U/L [facility] Bilirubin [Mass/Vol] 0.3 mg/dL 0.3 - 1.2 mg/dL [facility] Calcium [Mass/Vol] 9.8 mg/dL 8.5 - 10. 5 mg/dL [facility] Chloride [Moles/Vol] 104 mmol/L 98 - 109 mmol/L [facility] CO2 [Moles/Vol] 25 mmol/L 22 - 32 mmol/L [facility] Creatinine [Mass/Vol] 0.86 mg/dL 0.40 - 1.00 mg/dL [facility] Comment on above: METHOD TRACEABLE TO IDTN STANDARD eGFR (CKD-EPI)non-race dependent 88 - PINF [facility] Comment on above: Reported eGFR is based on the CKD-EPI 2020 equation that does not use a race coefficient. Glucose [Mass/Vol] 92 mg/dL 65 - 99 mg/dL [facility] Interpretation and review of laboratory results Abnormal [facility] Potassium [Moles/Vol] 4.3 mmol/L 3.5 - 5.0 mmol/L [facility] Protein [Mass/Vol] 7.7 g/dL 6.0 - 8.0 g/dL [facility] Sodium [Moles/Vol] 138 mmol/L 134 - 146 mmol/L [facility] Urea nitrogen [Mass/Vol] 13 mg/dL 5 - 23 mg/dL [facility] ECG 12 leadon 01-02-2024 TRACEMASTERVUE [facility] BUNon 07-17-2022 Urea nitrogen [Mass/Vol] 9.0 mg/dL Normal 7.0-18.0 [facility] Comment on above: Performed By: #### C DANY BUN #### [facility] [address] [place] [address] Dr. Marianela Villa CBC AUTO DIFFon 07-17-2022 BASO # 0.0 103/ul Normal 0.0-0.1 [facility] Comment on above: Performed By: #### C DANY BUN #### [facility] [address] [place] [address] Dr. Marianela Villa Basophils/100 WBC (Bld) 0.1 % Critically low 0.2-2.0 [facility] Comment on above: Performed By: #### C DANY, BUN #### [facility] [address] [place] [address] Dr. Marianela Villa EO # 0.0 103/ul Normal 0.0-0.7 [facility] Comment on above: Performed By: #### C DANY BUN #### [facility] [address] [place] [address] Dr. Marianela Villa Eosinophils/100 WBC (Bld) 0.0 % Critically low 0.9-7.0 [facility] Comment on above: Performed By: #### C DANY, BUN #### [facility] [address] [place] [address] Dr. Marianela Villa Erythrocyte distribution width (RBC) [Ratio] 14.5 % Normal 11.0-15.0 [facility] Comment on above: Performed By: #### C DANY, BUN #### [facility] [address] [place] [address] Dr. Marianela Villa Hematocrit (Bld) [Volume fraction] 29.9 % Critically low 36.0-48.0 [facility] Comment on above: Performed By: #### C DANY, BUN #### [facility] [address] [place] [address] Dr. Marianela Villa Hemoglobin (Bld) [Mass/Vol] 10.0 g/dL Critically low 12.0-16.0 [facility] Comment on above: Performed By: #### C DANY, BUN #### [facility] [address] [place] [address] Dr. Marianela Villa IG # 0.04 10e3/ul Critically high 0.00-0.03 [facility] Comment on above: Performed By: #### C DANY, BUN #### [facility] [address] [place] [address] Dr. Marianela Villa IG % 0.4 % Normal 0.0-0.5 [facility] Comment on above: Performed By: #### C DANY, BUN #### [facility] [address] [place] [address] Dr. Marianela Villa LYMPH # 1.2 103/ul Normal 1.2-3.8 [facility] Comment on above: Performed By: #### C DANY, BUN #### [facility] [address] [place] [address] Dr. Marianela Villa Lymphocytes/100 WBC (Bld) 12.1 % Critically low 20.5-60.0 [facility] Comment on above: Performed By: #### C DANY, BUN #### [facility] [address] [place] [address] Dr. Marianela Villa MANUAL DIFF REQ NO Normal [facility] Comment on above: Performed By: #### C DANY, BUN #### [facility] [address] [place] [address] Dr. Marianela Villa MCH (RBC) [Entitic mass] 31.3 pg Normal 26.7-34.0 [facility] Comment on above: Performed By: #### C DANY, BUN #### [facility] [address] [place] [address] Dr. Marianela Villa MCHC (RBC) [Mass/Vol] 33.4 g/dL Normal 29.9-35.2 [facility] Comment on above: Performed By: #### C DANY, BUN #### [facility] [address] [place] [address] Dr. Marianela Villa MCV (RBC) [Entitic vol] 93.7 fL Normal 81.0-99.0 [facility] Comment on above: Performed By: #### C DANY, BUN #### [facility] [address] [place] [address] Dr. Marianela Villa MONO # 1.0 103/ul Critically high 0.3-0.8 [facility] Comment on above: Performed By: #### C DANY, BUN #### [facility] [address] [place] [address] Dr. Marianela Villa Monocytes/100 WBC (Bld) 10.2 % Normal 1.7-12.0 [facility] Comment on above: Performed By: #### C DANY, BUN #### [facility] [address] [place] [address] Dr. Marianela Villa NEUT # 7.7 103/ul Critically high 1.4-6.5 [facility] Comment on above: Performed By: #### C DANY, BUN #### [facility] [address] [place] [address] Dr. Marianela Villa Neutrophils/100 WBC (Bld) 77.2 % Critically high 43.0-75.0 [facility] Comment on above: Performed By: #### C DANY BUN #### [facility] [address] [place] [address] Dr. Marianela Villa Platelet mean volume (Bld) [Entitic vol] 10.9 fL Normal 9.5-13.5 [facility] Comment on above: Performed By: #### C DANY, BUN #### [facility] [address] [address] [address] Marianela Villa PLT 188 103/ul Normal 150-450 [facility] Comment on above: Performed By: #### Santos SAENZ BUN #### [facility] [address] [place] [address] Dr. Marianela Villa RBC 3.19 106/ul Critically low 4.20-5.40 [facility] Comment on above: Performed By: #### Santos SAENZ BUN #### [facility] [address] [place] [address] Dr. Marianela Villa WBC 10.0 103/ul Normal 4.0-11.0 [facility] Comment on above: Performed By: #### Santos SAENZ BUN #### [facility] [address] [place] [address] Dr. Marianela Villa CREATININEon 07-17-2022 Creatinine [Mass/Vol] 0.78 mg/dL Normal 0.55-1.02 [facility] Comment on above: Performed By: #### C DANY BUN #### [facility] [address] [place] [address] Dr. Marianela Villa EGFR-AF BURKINAN >60 Normal >=60 [facility] Comment on above: Performed By: #### C DANY, BUN #### [facility] [address] [place] [address] Dr. Marianela Villa EGFR-NON AF BURKINAN >60 Normal >=60 [facility] Comment on above: Performed By: #### C DANY, BUN #### [facility] [address] [place] [address] Dr. Marianela Villa PREG QUANT HCGon 07-16-2022 HCG QUANT <1 Normal [facility] Comment on above: Performed By: #### P REGQNT #### [facility] [address] [place] [address] Dr. Marianela Villa HCG RANGE SEE BELOW Normal [facility] Comment on above: Result Comment: 5-50 0.2-1 WEEK 50-500 1-2 WEEKS 100-5,000 2-3 WEEKS 500-10,000 3-4 WEEKS 1,000-50,000 4-5 WEEKS 10,000-100,000 5-6 WEEKS 15,000-200,000 6-8 WEEKS 10,000-100,000 2-3 MONTHS Performed By: #### P REGQNT #### [facility] [address] [place] [address] Dr. Marianela Villa TYPE AND SCREENon 07-13-2022 TYPE AND SCREEN Negative Normal [facility] Comment on above: Performed By: #### C DANY, BUN #### [facility] [address] [place] [address] Dr. Marianela Villa CBC AUTO DIFFon 07-01-2022 BASO # 0.0 103/ul Normal 0.0-0.1 [facility] Comment on above: Performed By: #### C BC #### [facility] [address] [place] [address] Dr. Marianela Villa Basophils/100 WBC (Bld) 0.3 % Normal 0.2-2.0 [facility] Comment on above: Performed By: #### C BC #### [facility] [address] [place] [address] Dr. Marianela Villa EO # 0.1 103/ul Normal 0.0-0.7 [facility] Comment on above: Performed By: #### C BC #### [facility] [address] [place] [address] Dr. Marianela Villa Eosinophils/100 WBC (Bld) 1.6 % Normal 0.9-7.0 [facility] Comment on above: Performed By: #### C BC #### [facility] [address] [place] [address] Dr. Marianela Villa Erythrocyte distribution width (RBC) [Ratio] 13.9 % Normal 11.0-15.0 [facility] Comment on above: Performed By: #### C BC #### [facility] [address] [place] [address] Dr. Marianela Villa Hematocrit (Bld) [Volume fraction] 37.9 % Normal 36.0-48.0 [facility] Comment on above: Performed By: #### C BC #### [facility] [address] [place] [address] Dr. Marianela Villa Hemoglobin (Bld) [Mass/Vol] 12.3 g/dL Normal 12.0-16.0 [facility] Comment on above: Performed By: #### C BC #### [facility] [address] [place] [address] Dr. Marianela Villa IG # 0.01 10e3/ul Normal 0.00-0.03 [facility] Comment on above: Performed By: #### C BC #### [facility] [address] [place] [address] Dr. Marianela Villa IG % 0.2 % Normal 0.0-0.5 [facility] Comment on above: Performed By: #### C BC #### [facility] [address] [place] [address] Dr. Marianela Villa LYMPH # 1.6 103/ul Normal 1.2-3.8 [facility] Comment on above: Performed By: #### C BC #### [facility] [address] [place] [address] Dr. Marianela Villa Lymphocytes/100 WBC (Bld) 24.6 % Normal 20.5-60.0 [facility] Comment on above: Performed By: #### C BC #### [facility] [address] [place] [address] Dr. Marianela Villa MANUAL DIFF REQ NO Normal [facility] Comment on above: Performed By: #### C BC #### [facility] [address] [place] [address] Dr. Marianela Villa MCH (RBC) [Entitic mass] 30.5 pg Normal 26.7-34.0 [facility] Comment on above: Performed By: #### C BC #### [facility] [address] [place] [address] Dr. Marianela Villa MCHC (RBC) [Mass/Vol] 32.5 g/dL Normal 29.9-35.2 [facility] Comment on above: Performed By: #### C BC #### [facility] [address] [place] [address] Dr. Marianela Villa MCV (RBC) [Entitic vol] 94.0 fL Normal 81.0-99.0 [facility] Comment on above: Performed By: #### C BC #### [facility] [address] [place] [address] Dr. Marianela Villa MONO # 0.5 103/ul Normal 0.3-0.8 [facility] Comment on above: Performed By: #### C BC #### [facility] [address] [place] [address] Dr. Marianela Villa Monocytes/100 WBC (Bld) 7.6 % Normal 1.7-12.0 [facility] Comment on above: Performed By: #### C BC #### [facility] [address] [place] [address] Dr. Marianela Villa NEUT # 4.2 103/ul Normal 1.4-6.5 [facility] Comment on above: Performed By: #### C BC #### [facility] [address] [place] [address] Dr. Marianela Villa Neutrophils/100 WBC (Bld) 65.7 % Normal 43.0-75.0 [facility] Comment on above: Performed By: #### C BC #### [facility] [address] [place] [address] Dr. Marianela Villa Platelet mean volume (Bld) [Entitic vol] 11.0 fL Normal 9.5-13.5 [facility] Comment on above: Performed By: #### C BC #### [facility] [address] [place] [address] Dr. Marianela Villa PLT 251 103/ul Normal 150-450 [facility] Comment on above: Performed By: #### C BC #### [facility] [address] [address] [address] Marianela Villa RBC 4.03 106/ul Critically low 4.20-5.40 [facility] Comment on above: Performed By: #### C BC #### [facility] [address] [address] [address] Marianela Villa WBC 6.4 103/ul Normal 4.0-11.0 [facility] Comment on above: Performed By: #### C BC #### [facility] [address] [place] [address] Dr. Marianela Villa LIVER PROFILEon 07-01-2022 Albumin [Mass/Vol] 3.7 g/dL Normal 3.4-5.0 [facility] Comment on above: Performed By: #### B MP, LIVER #### [facility] [address] [place] [address] Dr. Marianela Villa Albumin/Globulin [Mass ratio] 1.0 {ratio} Normal [facility] Comment on above: Performed By: #### B MP, LIVER #### [facility] [address] [place] [address] Dr. Marianela Villa ALP [Catalytic activity/Vol] 96 U/L Normal 46-116 [facility] Comment on above: Performed By: #### B MP, LIVER #### [facility] [address] [place] [address] Dr. Marianela Villa ALT [Catalytic activity/Vol] 25 U/L Normal 14-59 [facility] Comment on above: Performed By: #### B MP, LIVER #### [facility] [address] [place] [address] Dr. Marianela Villa AST [Catalytic activity/Vol] 16 U/L Normal 15-37 [facility] Comment on above: Performed By: #### B MP, LIVER #### [facility] [address] [place] [address] Dr. Marianela Villa BILI, CONJUGATED 0.0 mg/dL Normal 0.0-0.2 [facility] Comment on above: Performed By: #### B MP, LIVER #### [facility] [address] [place] [address] Dr. Marianela Villa Bilirubin [Mass/Vol] 0.2 mg/dL Normal 0.2-1.0 [facility] Comment on above: Performed By: #### B MP, LIVER #### [facility] [address] [place] [address] Dr. Marianela Villa Globulin (S) [Mass/Vol] 3.7 g/dL Normal [facility] Comment on above: Performed By: #### B MP, LIVER #### [facility] [address] [place] [address] Dr. Marianela Villa Protein [Mass/Vol] 7.4 g/dL Normal 6.4-8.2 [facility] Comment on above: Performed By: #### B MP, LIVER #### [facility] [address] [place] [address] Dr. Marianela Villa PROF CHEM 8 (BAS METB)on Anion gap [Moles/Vol] 13.2 mmol/L Normal [facility] Comment on above: Performed By: #### B MP, LIVER #### [facility] [address] [place] [address] Dr. Marianela Villa Calcium [Mass/Vol] 9.2 mg/dL Normal 8.5-10.1 [facility] Comment on above: Performed By: #### B MP, LIVER #### [facility] [address] [place] [address] Dr. Marianela Villa Chloride [Moles/Vol] 103 mmol/L Normal 98-107 [facility] Comment on above: Performed By: #### B MP, LIVER #### [facility] [address] [place] [address] Dr. Marianela Villa CO2 [Moles/Vol] 28.0 mmol/L Normal 21.0-32.0 [facility] Comment on above: Performed By: #### B MP, LIVER #### [facility] [address] [place] [address] Dr. Marianela Villa Creatinine [Mass/Vol] 0.75 mg/dL Normal 0.55-1.02 [facility] Comment on above: Performed By: #### B MP, LIVER #### [facility] [address] [place] [address] Dr. Marianela Villa EGFR-AF BURKINAN >60 Normal >=60 [facility] Comment on above: Performed By: #### B MP, LIVER #### [facility] [address] [place] [address] Dr. Marianela Villa EGFR-NON AF BURKINAN >60 Normal >=60 [facility] Comment on above: Performed By: #### B MP, LIVER #### [facility] [address] [place] [address] Dr. Marianela Villa Glucose [Mass/Vol] 86 mg/dL Normal 74-106 [facility] Comment on above: Performed By: #### B MP, LIVER #### [facility] [address] [place] [address] Dr. Marianela Villa Potassium [Moles/Vol] 4.2 mmol/L Normal 3.5-5.1 [facility] Comment on above: Performed By: #### B MP, LIVER #### [facility] [address] [place] [address] Dr. Marianela Villa Sodium [Moles/Vol] 140 mmol/L Normal 136-145 [facility] Comment on above: Performed By: #### B MP, LIVER #### [facility] [address] [place] [address] Dr. Marianela Villa Urea nitrogen [Mass/Vol] 8.0 mg/dL Normal 7.0-18.0 [facility] Comment on above: Performed By: #### B MP, LIVER #### [facility] [address] [place] [address] Dr. Marianela Villa Urea nitrogen/Creatinin e [Mass ratio] 10.7 mg/mg Normal [facility] Comment on above: Performed By: #### B MP, LIVER #### [facility] [address] [place] [address] Dr. Marianela Villa PROTIMEon 07-01-2022 INR Coag (PPP) [Relative time] 1.00 {INR} Normal [facility] Comment on above: Performed By: #### C DANY BUN #### [facility] [address] [place] [address] Dr. Marianela Villa INR GUIDELINES SEE BELOW Normal [facility] Comment on above: Result Comment: MCKENNA RED INR: 2.0 - 3.0 CONDITIONS NOT LISTED BELOW 2.5 - 3.5 FOR PROSTHETIC HEART VALVE REPLACEMENT 2.5 - 3.5 RECURRENT THROMBOSIS Performed By: #### C DANY BUN #### [facility] [address] [place] [address] Dr. Marianela Villa PT Coag (PPP) [Time] 10.6 s Normal 9.0-11.6 [facility] Comment on above: Performed By: #### Santos SAENZ BUN #### [facility] [address] [place] [address] Dr. Marianela Villa PTTon 07-01-2022 aPTT Coag (Bld) [Time] 25.0 s Normal 22.3-36.2 [facility] Comment on above: Performed By: #### ALAN BUNDY #### [facility] [address] [place] [address] Dr. Marianela Villa CBC AUTO DIFFon 05-05-2022 BASO # 0.0 103/ul Normal 0.0-0.1 [facility] Comment on above: Performed By: #### P REG #### [facility] [address] [place] [address] Dr. Marianela Villa Basophils/100 WBC (Bld) 0.4 % Normal 0.2-2.0 [facility] Comment on above: Performed By: #### P REG #### [facility] [address] [place] [address] Dr. Marianela Villa EO # 0.1 103/ul Normal 0.0-0.7 [facility] Comment on above: Performed By: #### P REG #### [facility] [address] [place] [address] Dr. Marianela Villa Eosinophils/100 WBC (Bld) 0.9 % Normal 0.9-7.0 [facility] Comment on above: Performed By: #### P REG #### [facility] [address] [place] [address] Dr. Marianela Villa Erythrocyte distribution width (RBC) [Ratio] 16.8 % Critically high 11.0-15.0 [facility] Comment on above: Performed By: #### P REG #### [facility] [address] [place] [address] Dr. Marianela Villa Hematocrit (Bld) [Volume fraction] 40.8 % Normal 36.0-48.0 [facility] Comment on above: Performed By: #### P REG #### [facility] [address] [place] [address] Dr. Marianela Villa Hemoglobin (Bld) [Mass/Vol] 13.0 g/dL Normal 12.0-16.0 [facility] Comment on above: Performed By: #### P REG #### [facility] [address] [place] [address] Dr. Marianela Villa IG # 0.02 10e3/ul Normal 0.00-0.03 [facility] Comment on above: Performed By: #### P REG #### [facility] [address] [place] [address] Dr. Marianela Villa IG % 0.3 % Normal 0.0-0.5 [facility] Comment on above: Performed By: #### P REG #### [facility] [address] [place] [address] Dr. Marianela Villa LYMPH # 1.6 103/ul Normal 1.2-3.8 [facility] Comment on above: Performed By: #### P REG #### [facility] [address] [place] [address] Dr. Marianela Villa Lymphocytes/100 WBC (Bld) 24.1 % Normal 20.5-60.0 [facility] Comment on above: Performed By: #### P REG #### [facility] [address] [place] [address] Dr. Marianela Villa MANUAL DIFF REQ NO Normal [facility] Comment on above: Performed By: #### P REG #### [facility] [address] [address] [address] Marianela Villa MCH (RBC) [Entitic mass] 30.3 pg Normal 26.7-34.0 [facility] Comment on above: Performed By: #### P REG #### [facility] [address] [address] [address] Marianela Villa MCHC (RBC) [Mass/Vol] 31.9 g/dL Normal 29.9-35.2 [facility] Comment on above: Performed By: #### P REG #### [facility] [address] [place] [address] Dr. Marianela Villa MCV (RBC) [Entitic vol] 95.1 fL Normal 81.0-99.0 [facility] Comment on above: Performed By: #### P REG #### [facility] [address] [place] [address] Dr. Marianela Villa MONO # 0.5 103/ul Normal 0.3-0.8 [facility] Comment on above: Performed By: #### P REG #### [facility] [address] [place] [address] Dr. Marianela Villa Monocytes/100 WBC (Bld) 7.6 % Normal 1.7-12.0 [facility] Comment on above: Performed By: #### P REG #### [facility] [address] [place] [address] Dr. Marianela Villa NEUT # 4.5 103/ul Normal 1.4-6.5 [facility] Comment on above: Performed By: #### P REG #### [facility] [address] [place] [address] Dr. Marianela Villa Neutrophils/100 WBC (Bld) 66.7 % Normal 43.0-75.0 [facility] Comment on above: Performed By: #### P REG #### [facility] [address] [place] [address] Dr. Marianela Villa Platelet mean volume (Bld) [Entitic vol] 10.0 fL Normal 9.5-13.5 [facility] Comment on above: Performed By: #### P REG #### [facility] [address] [address] [address] Marianela Villa PLT 253 103/ul Normal 150-450 [facility] Comment on above: Performed By: #### P REG #### [facility] [address] [place], [place] [address] Dr. Marianela Villa RBC 4.29 106/ul Normal 4.20-5.40 [facility] Comment on above: Performed By: #### P REG #### [facility] [address] [address] [address] Marianela Villa WBC 6.8 103/ul Normal 4.0-11.0 [facility] Comment on above: Performed By: #### P REG #### [facility] [address] [address] [address] Marianela Villa FERRITINon 05-05-2022 Ferritin [Mass/Vol] 21.0 ng/mL Normal 6.2-137.0 [facility] Comment on above: Performed By: #### P REG #### [facility] [address] [address] [address] Marianela Villa IRONon 05-05-2022 Iron [Mass/Vol] 128.0 ug/dL Normal 50.0-170.0 [facility] Comment on above: Performed By: #### P REG #### [facility] [address] [address] [address] Marianela Villa US VAC ASST BX BREAST RT W C LIPon 04-29-2022 US VAC ASST BX BREAST RT W CLIP Begin Addendum #1 COLLECTED DATE/TIME: 04/26/2022, 11:20 EST Final Diagnosis Report for [facility] [place] RIGHT BREAST 1 O'CLOCK MASS; BIOPSY: [...] provided after pathology results are available. Normal [facility] MAMMO POST BIOPSY RIGHTon MAMMO POST BIOPSY RIGHT Patient: ANTONIO MOY Exam Date: 04/26/2022 : 1985 Gender:F Ordering : [facility] Admission #: [id number] Family : Order #: [id number] CLICK HERE TO VIEW EXAM RADIOLOGY REPORT [...] Dorantes M.D. on 04/26/2022 at 13:55 Normal [facility] MG MAMM DIAGNOSTIC 3D SERVANDO CA Don 04-16-2022 MG MAMM DIAGNOSTIC 3D SERVANDO CAD Patient: ANTONIO MOY Exam Date: 04/16/2022 : 1985 Gender:F Ordering : [facility] Admission #: [id number] Family : Order #: [id number] CLICK HERE TO VIEW EXAM RADIOLOGY REPORT [...] leukemia cancer at age 1. LOCATION: [facility] BREAST COMPOSITION: Scattered areas fibroglandular density. FINDINGS: [...] M.D. on 04/16/2022 at 13:39 Normal [facility] US BREAST RIGHT LIMITEDon US BREAST RIGHT LIMITED Patient: ANTONIO MOY Exam Date: 04/16/2022 : 1985 Gender:F Ordering : [facility] Admission #: [id number] Family : Order #: [id number] CLICK HERE TO VIEW EXAM RADIOLOGY REPORT [...] leukemia cancer at age 1. LOCATION: [facility] BREAST COMPOSITION: Scattered areas fibroglandular density. FINDINGS: [...] M.D. on 04/16/2022 at 13:39 Normal [facility] US PELVIS AND TRANSVAGon US PELVIS AND [...] KIANA CHURCH Date: 2022-04-16 10:01 Normal [facility] General Surgery Office/Clini c Noteon 04-14-2022 General [...] mRNA-1273 vaccine 07/19/2020 Recorded 2022-03-03: TPVALL Normal [facility] Comment on above: Result Comment: Elec tronically Signed By: BENITA GUTIERREZ, Halley Smith\Date and Time Signed: 04/14/22 16:29 EST Reminderson 04-14-2022 Reminders - From: Rain Alcantar LPN To: [facility] - Clinical; Sent: 04/14/2022 15:37:22 EST Show up: 03/07/2032 07:00:00 EST Subject: colonoscopy recall Due Date/Time: 04/07/2032 07:00:00 EST Reminder/Recall Patient is due for screening colonoscopy 04/07/2032. Normal [facility] Outside Colonoscopyon 2022 Outside Colonoscopy [id number]#[id number]:127 Normal [facility] Pathology Noteon 04-09-2022 Pathology Note [id number]#1.00CD:127 Normal [facility] PREG HCG QUALon 04-07-2022 , QUAL Negative Normal NEGATIVE [facility] Comment on above: Performed By: #### C BC #### [facility] [address] [place] [address] Dr. Marianela Villa Lab Reportson 04-01-2022 Lab Reports [id number]#[id number]:127 Normal [facility] Covid-19 PCR (CVDTB)on 03-05 SARS-CoV-2 (COVID-19) RNA TERA+probe Ql (Unsp spec) Not detected Normal NOT DETECTED [facility] Comment on above: Result Comment: This test is not yet approved or cleared by the [place] FDA. When there are no FDA-approved or cleared tests available, and other criteria are met, FDA can make tests available under an emergency access mechanism called an Emergency Use Authorization (EUA). The EUA for this test is supported by the Installment Agent of Health and Human Service's (HHS's) declaration [...] SARS-CoV-2. Performed By: #### P REG #### [facility] [address] [place] [address] Dr. Marianela Villa PAP ACOG PANEL 2: 30 to 65on 03-21-2022 . . Normal [facility] Comment on above: Result Comment: Perf ormed at: WB Performed By: #### [id number] #### [facility] [address] [place] [address] Dr. Marianela Villa Age Gdln ACOG Testing 30-65 Normal [facility] Comment on above: Performed By: #### [id number] #### [facility] [address] [place] [address] Dr. Marianela Villa DIAGNOSIS: Comment Normal [facility] Comment on above: Result Comment: NEGA TIVE FOR INTRAEPITHELIAL LESION OR MALIGNANCY. Performed at: WB Performed By: #### [id number] #### [facility] [address] [place] [address] Dr. Marianela Villa HPV Aptima Negative Normal Negative [facility] Comment on above: Result Comment: This nucleic acid amplification test detects fourteen high-risk HPV types (16,18,31,33,35,39,45,51,52,56,58,59,66,68) without differentiation. Performed at: =G Performed By: #### [id number] #### [facility] [address] [place] [address] Dr. Marianela Villa HPV Genotype Reflex Comment Normal [facility] Comment on above: Result Comment: Crit eria not met, HPV Genotype not performed. Performed at: WB Performed By: #### [id number] #### [facility] [address] [place] [address] Dr. Marianela Villa Methodology: Comment Normal [facility] Comment on above: Result Comment: This liquid based ThinPrep(R) pap test was screened with the use of an image guided system. Performed at: WB Performed By: #### [id number] #### [facility] [address] [place] [address] Dr. Marianela Villa Note: Comment Normal [facility] Comment on above: Result Comment: The Pap smear is a screening test designed to aid in the detection of premalignant and malignant conditions of the uterine cervix. It is not a diagnostic procedure and should not be used as the sole means of detecting cervical cancer. Both false-positive and false-negative reports do occur. . Performed at: WB Performed By: #### [id number] #### [facility] [address] [address] [address] Marianela Villa Performed by: Comment Normal [facility] Comment on above: Result Comment: Nancy Leslie, Broker Assistant (ASCP) Performed at: WB Performed By: #### [id number] #### [facility] [address] [place] [address] Dr. Marianela Villa Specimen adequacy: Comment Normal [facility] Comment on above: Result Comment: Sati sfactory for evaluation. No endocervical component is identified. Performed at: WB Performed By: #### [id number] #### [facility] [address] [place] [address] Dr. Marianela Villa Pre-Certification Formon Pre-Certification Form [id number]:127 Normal [facility] Facesheeton 03-09-2022 Facesheet [id number]#1.00CD:127 Normal [facility] Patient Correspondenceon Patient Correspondence [id number]:127 Normal [facility] Consent for Procedure/Surger yon 03-08-2022 Consent for Procedure/Surgery [id number]:127 Normal [facility] CBC AUTO DIFFon 03-01-2022 BASO # 0.0 103/ul Normal 0.0-0.1 [facility] Comment on above: Performed By: #### C BC #### [facility] [address] [place] [address] Dr. Marianela Villa Basophils/100 WBC (Bld) 0.5 % Normal 0.2-2.0 [facility] Comment on above: Performed By: #### C BC #### [facility] [address] [place] [address] Dr. Marianela Villa EO # 0.1 103/ul Normal 0.0-0.7 [facility] Comment on above: Performed By: #### C BC #### [facility] Laboratory [address] [place] [address] Dr. Marianela Villa Eosinophils/100 WBC (Bld) 1.3 % Normal 0.9-7.0 [facility] Comment on above: Performed By: #### C BC #### [facility] Laboratory [address] [place] [address] Dr. Marianela Villa Erythrocyte distribution width (RBC) [Ratio] 25.9 % Critically high 11.0-15.0 [facility] Comment on above: Performed By: #### C BC #### [facility] Laboratory [address] [place] [address] Dr. Marianela Villa Hematocrit (Bld) [Volume fraction] 36.4 % Normal 36.0-48.0 [facility] Comment on above: Performed By: #### C BC #### [facility] Laboratory [address] [place] [address] Dr. Marianela Villa Hemoglobin (Bld) [Mass/Vol] 11.5 g/dL Critically low 12.0-16.0 [facility] Comment on above: Performed By: #### C BC #### [facility] Laboratory [address] [place] [address] Dr. Marianela Villa IG # 0.01 10e3/ul Normal 0.00-0.03 [facility] Comment on above: Performed By: #### C BC #### [facility] Laboratory [address] [place] [address] Dr. Marianela Villa IG % 0.2 % Normal 0.0-0.5 [facility] Comment on above: Performed By: #### C BC #### [facility] Laboratory [address] [address] [address] Marianela Villa LYMPH # 1.7 103/ul Normal 1.2-3.8 [facility] Comment on above: Performed By: #### C BC #### [facility] Laboratory [address] [place] [address] Dr. Marianela Villa Lymphocytes/100 WBC (Bld) 31.4 % Normal 20.5-60.0 [facility] Comment on above: Performed By: #### C BC #### [facility] Laboratory [address] [place] [address] Dr. Marianela Villa MANUAL DIFF REQ NO Normal [facility] Comment on above: Performed By: #### C BC #### [facility] Laboratory [address] [place] [address] Dr. Marianela Villa MCH (RBC) [Entitic mass] 26.6 pg Critically low 26.7-34.0 [facility] Comment on above: Performed By: #### C BC #### [facility] Laboratory [address] [place] [address] Dr. Marianela Villa MCHC (RBC) [Mass/Vol] 31.6 g/dL Normal 29.9-35.2 [facility] Comment on above: Performed By: #### C BC #### [facility] Laboratory [address] [place] [address] Dr. Marianela Villa MCV (RBC) [Entitic vol] 84.1 fL Normal 81.0-99.0 [facility] Comment on above: Performed By: #### C BC #### [facility] Laboratory [address] [place] [address] Dr. Marianela Villa MONO # 0.4 103/ul Normal 0.3-0.8 The [facility] Comment on above: Performed By: #### C BC #### [facility] Laboratory [address] [place] [address] Dr. Marianela Villa Monocytes/100 WBC (Bld) 7.6 % Normal 1.7-12.0 [facility] Comment on above: Performed By: #### C BC #### [facility] Laboratory [address] [place] [address] Dr. Marianela Villa NEUT # 3.3 103/ul Normal 1.4-6.5 [facility] Comment on above: Performed By: #### C BC #### [facility] Laboratory [address] [place] [address] Dr. Marianela Villa Neutrophils/100 WBC (Bld) 59.0 % Normal 43.0-75.0 [facility] Comment on above: Performed By: #### C BC #### [facility] Laboratory [address] [place] [address] Dr. Marianela Villa Platelet mean volume (Bld) [Entitic vol] 11.2 fL Normal 9.5-13.5 [facility] Comment on above: Performed By: #### C BC #### [facility] Laboratory [address] [place] [address] Dr. Marianela Villa PLT 297 103/ul Normal 150-450 [facility] Comment on above: Performed By: #### C BC #### [facility] Laboratory [address] [place] [address] Dr. Marianela Villa RBC 4.33 106/ul Normal 4.20-5.40 [facility] Comment on above: Performed By: #### C BC #### [facility] Laboratory [address] [place] [address] Dr. Marianela Villa WBC 5.5 103/ul Normal 4.0-11.0 [facility] Comment on above: Performed By: #### C BC #### [facility] Laboratory [address] [place] [address] Dr. Marianela Villa CBC AUTO DIFFon 02-18-2022 BASO # 0.0 103/ul Normal 0.0-0.1 The [facility] Comment on above: Performed By: #### P REG #### [facility] Laboratory [address] [place] [address] Dr. Marianela Villa Basophils/100 WBC (Bld) 0.3 % Normal 0.2-2.0 [facility] Comment on above: Performed By: #### P REG #### [facility] Laboratory [address] [place] [address] Dr. Marianela Villa EO # 0.1 103/ul Normal 0.0-0.7 [facility] Comment on above: Performed By: #### P REG #### [facility] Laboratory [address] [place] [address] Dr. Marianela Villa Eosinophils/100 WBC (Bld) 1.0 % Normal 0.9-7.0 [facility] Comment on above: Performed By: #### P REG #### [facility] Laboratory [address] [place] [address] Dr. Marianela Villa Erythrocyte distribution width (RBC) [Ratio] 25.0 % Critically high 11.0-15.0 [facility] Comment on above: Performed By: #### P REG #### [facility] Laboratory [address] [place] [address] Dr. Marianela Villa Hematocrit (Bld) [Volume fraction] 34.9 % Critically low 36.0-48.0 [facility] Comment on above: Performed By: #### P REG #### [facility] Laboratory [address] [place] [address] Dr. Marianela Villa Hemoglobin (Bld) [Mass/Vol] 10.6 g/dL Critically low 12.0-16.0 [facility] Comment on above: Performed By: #### P REG #### [facility] Laboratory [address] [place] [address] Dr. Marianela Villa IG # 0.02 10e3/ul Normal 0.00-0.03 [facility] Comment on above: Performed By: #### P REG #### [facility] Laboratory [address] [place] [address] Dr. Marianela Villa IG % 0.3 % Normal 0.0-0.5 [facility] Comment on above: Performed By: #### P REG #### [facility] [address] [place] [address] Dr. Marianela Villa LYMPH # 1.8 103/ul Normal 1.2-3.8 [facility] Comment on above: Performed By: #### P REG #### [facility] Laboratory [address] [place] [address] Dr. Marianela Villa Lymphocytes/100 WBC (Bld) 26.0 % Normal 20.5-60.0 [facility] Comment on above: Performed By: #### P REG #### [facility] Laboratory [address] [place] [address] Dr. Marianela Villa MANUAL DIFF REQ NO Normal [facility] Comment on above: Performed By: #### P REG #### [facility] Laboratory [address] [place] [address] Dr. Marianela Villa MCH (RBC) [Entitic mass] 24.9 pg Critically low 26.7-34.0 [facility] Comment on above: Performed By: #### P REG #### [facility] Laboratory [address] [place] [address] Dr. Marianela Villa MCHC (RBC) [Mass/Vol] 30.4 g/dL Normal 29.9-35.2 [facility] Comment on above: Performed By: #### P REG #### [facility] Laboratory [address] [place] [address] Dr. Marianela Villa MCV (RBC) [Entitic vol] 81.9 fL Normal 81.0-99.0 [facility] Comment on above: Performed By: #### P REG #### [facility] Laboratory [address] [place] [address] Dr. Marianela Villa MONO # 0.4 103/ul Normal 0.3-0.8 [facility] Comment on above: Performed By: #### P REG #### [facility] Laboratory [address] [place] [address] Dr. Marianela Villa Monocytes/100 WBC (Bld) 5.5 % Normal 1.7-12.0 [facility] Comment on above: Performed By: #### P REG #### [facility] Laboratory [address] [place] [address] Dr. Marianela Villa NEUT # 4.5 103/ul Normal 1.4-6.5 [facility] Comment on above: Performed By: #### P REG #### [facility] Laboratory [address] [place] [address] Dr. Marianela Villa Neutrophils/100 WBC (Bld) 66.9 % Normal 43.0-75.0 [facility] Comment on above: Performed By: #### P REG #### [facility] Laboratory [address] [address] [address] Marianela Villa Platelet mean volume (Bld) [Entitic vol] 11.1 fL Normal 9.5-13.5 [facility] Comment on above: Performed By: #### P REG #### [facility] Laboratory [address] [address] [address] Marianela Villa PLT 198 103/ul Normal 150-450 [facility] Comment on above: Performed By: #### P REG #### [facility] Laboratory [address] [address] [address] Marianela Villa RBC 4.26 106/ul Normal 4.20-5.40 [facility] Comment on above: Performed By: #### P REG #### [facility] Laboratory [address] [place] [address] Dr. Marianela Villa WBC 6.8 103/ul Normal 4.0-11.0 [facility] Comment on above: Performed By: #### P REG #### [facility] Laboratory [address] [place] [address] Dr. Marianela Villa IRONon 02-18-2022 Iron [Mass/Vol] 57.0 ug/dL Normal 50.0-170.0 [facility] Comment on above: Performed By: #### C DANY, BUN #### [facility] Laboratory [address] [place] [address] Dr. Marianela Villa OCC BLD IMMUNO SCREENon OCCULT BLOOD Negative Normal NEGATIVE [facility] Comment on above: Performed By: #### O BSCRN #### [facility] Laboratory [address] [place] [address] Dr. Marianela Villa Physician Referralon 022 Physician Referral [id number] Normal [facility] CBC AUTO DIFFon 02-02-2022 BASO # 0.0 103/ul Normal 0.0-0.1 [facility] Comment on above: Performed By: #### C BC #### [facility] Laboratory [address] [place] [address] Dr. Marianela Villa Basophils/100 WBC (Bld) 0.4 % Normal 0.2-2.0 [facility] Comment on above: Performed By: #### C BC #### [facility] Laboratory [address] [place] [address] Dr. Marianela Villa EO # 0.1 103/ul Normal 0.0-0.7 [facility] Comment on above: Performed By: #### C BC #### [facility] Laboratory [address] [place] [address] Dr. Marianela Villa Eosinophils/100 WBC (Bld) 1.3 % Normal 0.9-7.0 [facility] Comment on above: Performed By: #### C BC #### [facility] Laboratory [address] [place] [address] Dr. Marianela Villa Erythrocyte distribution width (RBC) [Ratio] 17.7 % Critically high 11.0-15.0 [facility] Comment on above: Performed By: #### C BC #### [facility] Laboratory [address] [place] [address] Dr. Marianela Villa Hematocrit (Bld) [Volume fraction] 30.3 % Critically low 36.0-48.0 [facility] Comment on above: Performed By: #### C BC #### [facility] Laboratory [address] [place] [address] Dr. Marianela Villa Hemoglobin (Bld) [Mass/Vol] 9.1 g/dL Critically low 12.0-16.0 [facility] Comment on above: Performed By: #### C BC #### [facility] Laboratory [address] [place] [address] Dr. Marianela Villa IG # 0.01 10e3/ul Normal 0.00-0.03 [facility] Comment on above: Performed By: #### C BC #### [facility] Laboratory [address] [place] [address] Dr. Marianela Villa IG % 0.1 % Normal 0.0-0.5 [facility] Comment on above: Performed By: #### C BC #### [facility] Laboratory [address] [address] [address] Marianela Villa LYMPH # 1.9 103/ul Normal 1.2-3.8 [facility] Comment on above: Performed By: #### C BC #### [facility] [address] [address] [address] Marianela Villa Lymphocytes/100 WBC (Bld) 28.6 % Normal 20.5-60.0 [facility] Comment on above: Performed By: #### C BC #### [facility] Laboratory [address] [address] [address] Marianela Villa MANUAL DIFF REQ NO Normal [facility] Comment on above: Performed By: #### C BC #### [facility] Laboratory [address] [place] [address] Dr. Marianela Villa MCH (RBC) [Entitic mass] 23.3 pg Critically low 26.7-34.0 [facility] Comment on above: Performed By: #### C BC #### [facility] Laboratory [address] [place] [address] Dr. Marianela Villa MCHC (RBC) [Mass/Vol] 30.0 g/dL Normal 29.9-35.2 [facility] Comment on above: Performed By: #### C BC #### [facility] Laboratory [address] [place] [address] Dr. Marianela Villa MCV (RBC) [Entitic vol] 77.5 fL Critically low 81.0-99.0 [facility] Comment on above: Performed By: #### C BC #### [facility] Laboratory [address] [place] [address] Dr. Marianela Villa MONO # 0.5 103/ul Normal 0.3-0.8 [facility] Comment on above: Performed By: #### C BC #### [facility] Laboratory [address] [place] [address] Dr. Marianela Villa Monocytes/100 WBC (Bld) 6.7 % Normal 1.7-12.0 [facility] Comment on above: Performed By: #### C BC #### [facility] Laboratory [address] [address] [address] Marianela Villa NEUT # 4.2 103/ul Normal 1.4-6.5 [facility] Comment on above: Performed By: #### C BC #### [facility] Laboratory [address] [place] [address] Dr. Marianela Villa Neutrophils/100 WBC (Bld) 62.9 % Normal 43.0-75.0 [facility] Comment on above: Performed By: #### C BC #### [facility] Laboratory [address] [place] [address] Dr. Marianela Villa Platelet mean volume (Bld) [Entitic vol] 11.0 fL Normal 9.5-13.5 [facility] Comment on above: Performed By: #### C BC #### [facility] Laboratory [address] [place] [address] Dr. Marianela Villa PLT 284 103/ul Normal 150-450 [facility] Comment on above: Performed By: #### C BC #### [facility] Laboratory [address] [place] [address] Dr. Marianela Villa RBC 3.91 106/ul Critically low 4.20-5.40 [facility] Comment on above: Performed By: #### C BC #### [facility] Laboratory [address] [place] [address] Dr. Marianela Villa WBC 6.7 103/ul Normal 4.0-11.0 [facility] Comment on above: Performed By: #### C BC #### [facility] Laboratory [address] [address] [address] Marianela Villa CRPon 02-02-2022 CRP [Mass/Vol] mg/L Normal <=1.0 [facility] Comment on above: Performed By: #### C DANY BUN #### [facility] Laboratory [address] [place] [address] Dr. Marianela Villa FREE T3on 02-02-2022 FREE T3 2.06 pg/mlL Critically low 2.18-3.98 [facility] Comment on above: Performed By: #### C DANY, BUN #### [facility] [address] [address] [address] Marianela Villa FREE T4on 02-02-2022 Free T4 [Mass/Vol] 0.89 ng/dL Normal 0.76-1.46 [facility] Comment on above: Performed By: #### P REG #### [facility] Laboratory [address] [place] [address] Dr. Marianela Villa GLYCOHEMOGLOBIN A1Con 2021 ADA RECOMMENDATION SEE BELOW Normal [facility] Comment on above: Result Comment: ADA RECOMMENDED LIMIT 4.0 - 6.0 ADA THERAPEUTIC TARGET < 7.0 ACTION SUGGESTED > 7.0 Performed By: #### C DANY, BUN #### [facility] Laboratory [address] [place] [address] Dr. Marianela Villa Glucose [Mass/Vol] 131 mg/dL Normal [facility] Comment on above: Performed By: #### C DANY, BUN #### [facility] Laboratory [address] [place] [address] Dr. Marianela Villa HbA1c (Bld) [Mass fraction] 6.2 % Normal 4.5-6.2 [facility] Comment on above: Performed By: #### C DANY BUN #### [facility] Laboratory [address] [place] [address] Dr. Marianela Villa IRONon 02-02-2022 Iron [Mass/Vol] 15.0 ug/dL Critically low 50.0-170.0 [facility] Comment on above: Performed By: #### P REG #### [facility] Laboratory [address] [place] [address] Dr. Marianela Villa LIPID PROFILEon 02-02-2022 CHOL-HDL RATIO NORM SEE BELOW Normal [facility] Comment on above: Result Comment: 3.3 - 4.4 LOW RISK 4.4 - 7.1 AVERAGE RISK 7.1 - 11.0 MODERATE RISK >11.0 HIGH RISK Performed By: #### C DANY, BUN #### [facility] Laboratory [address] [place] [address] Dr. Marianela Villa Cholesterol [Mass/Vol] 187 mg/dL Normal <=200 [facility] Comment on above: Performed By: #### C DANY, BUN #### [facility] [address] [address] [address] Marianela Villa Cholesterol in HDL [Mass/Vol] 56 mg/dL Normal 40-60 [facility] Comment on above: Performed By: #### C DANY, BUN #### [facility] [address] [address] [address] Marianela Villa Cholesterol in LDL [Mass/Vol] 114.6 mg/dL Normal [facility] Comment on above: Performed By: #### C DANY, BUN #### [facility] [address] [address] [address] Marianela Villa Cholesterol.total/ Cholesterol in HDL [Mass ratio] 3.3 {ratio} Normal [facility] Comment on above: Performed By: #### C DANY, BUN #### [facility] [address] [address] [address] Marianela Villa HDL NORMAL > or = 60 mg/dl - LO W CARDIOVASCULAR RISK <40 mg/dl - HIGH CARDIOVASCULAR RISK Normal [facility] Comment on above: Performed By: #### C DANY, BUN #### [facility] Laboratory [address] [address] [address] Marianela Villa LDL CALC NORMAL SEE BELOW Normal [facility] Comment on above: Result Comment: <100 mg/dl OPTIMAL 100 - 129 mg/dl NEAR OR ABOVE OPTIMAL 130 - 159 mg/dl BORDERLINE HIGH 160 - 189 mg/dl HIGH >190 mg/dl VERY HIGH Performed By: #### C DANY, BUN #### [facility] [address] [address] [address] Marianela Villa Triglyceride [Mass/Vol] 82 mg/dL Normal <=150 [facility] Comment on above: Performed By: #### C DANY, BUN #### [facility] [address] [address] [address] Marianela Villa VLDL CALC 16.4 mg/dL Normal [facility] Comment on above: Performed By: #### C DANY, BUN #### [facility] [address] [address] [address] Marianela Villa MAGNESIUMon 02-02-2022 Magnesium [Mass/Vol] 2.0 mg/dL Normal 1.8-2.4 [facility] Comment on above: Performed By: #### C DANY, BUN #### [facility] [address] [address] [address] Marianela Villa PREG HCG QUALon 02-02-2022 , QUAL Negative Normal NEGATIVE [facility] Comment on above: Performed By: #### P REG #### [facility] [address] [address] [address] Marianela Villa PROF 14(COMP METB)on 022 Albumin [Mass/Vol] 4.0 g/dL Normal 3.4-5.0 [facility] Comment on above: Performed By: #### C DANY, BUN #### [facility] Laboratory [address] [place] [address] Dr. Marianela Villa Albumin/Globulin [Mass ratio] 1.0 {ratio} Normal [facility] Comment on above: Performed By: #### C DANY, BUN #### [facility] Laboratory [address] [place] [address] Dr. Marianela Villa ALP [Catalytic activity/Vol] 173 U/L Critically high 46-116 [facility] Comment on above: Performed By: #### C DANY, BUN #### [facility] [address] [place] [address] Dr. Marianela Villa ALT [Catalytic activity/Vol] 45 U/L Normal 14-59 [facility] Comment on above: Performed By: #### C DANY, BUN #### [facility] Laboratory [address] [place] [address] Dr. Marianela Villa Anion gap [Moles/Vol] 12.9 mmol/L Normal [facility] Comment on above: Performed By: #### C DANY, BUN #### [facility] Laboratory [address] [place] [address] Dr. Marianela Villa AST [Catalytic activity/Vol] 35 U/L Normal 15-37 [facility] Comment on above: Performed By: #### C DANY, BUN #### [facility] [address] [address] [address] Marianela Villa Bilirubin [Mass/Vol] 0.3 mg/dL Normal 0.2-1.0 [facility] Comment on above: Performed By: #### C DANY, BUN #### [facility] Laboratory [address] [place] [address] Dr. Marianela Villa Calcium [Mass/Vol] 9.1 mg/dL Normal 8.5-10.1 [facility] Comment on above: Performed By: #### C DANY, BUN #### [facility] [address] [place] [address] Dr. Marianela Villa Chloride [Moles/Vol] 103 mmol/L Normal 98-107 [facility] Comment on above: Performed By: #### C DANY, BUN #### [facility] [address] [place] [address] Dr. Marianela Villa CO2 [Moles/Vol] 27.0 mmol/L Normal 21.0-32.0 [facility] Comment on above: Performed By: #### C DANY, BUN #### [facility] [address] [place] [address] Dr. Marianela Villa Creatinine [Mass/Vol] 0.70 mg/dL Normal 0.55-1.02 [facility] Comment on above: Performed By: #### C DANY, BUN #### [facility] Laboratory [address] [place] [address] Dr. Marianela Villa EGFR-AF BURKINAN >60 Normal >=60 [facility] Comment on above: Performed By: #### C DANY, BUN #### [facility] [address] [place] [address] Dr. Marianela Villa EGFR-NON AF BURKINAN >60 Normal >=60 [facility] Comment on above: Performed By: #### C DANY, BUN #### [facility] [address] [place] [address] Dr. Marianela Villa Globulin (S) [Mass/Vol] 3.9 g/dL Normal [facility] Comment on above: Performed By: #### C DANY, BUN #### [facility] [address] [address] [address] Marianela Villa Glucose [Mass/Vol] 88 mg/dL Normal 74-106 [facility] Comment on above: Performed By: #### C DANY, BUN #### [facility] [address] [address] [address] Marianela Villa Potassium [Moles/Vol] 3.9 mmol/L Normal 3.5-5.1 [facility] Comment on above: Performed By: #### C DANY, BUN #### [facility] [address] [address] [address] Marianela Villa Protein [Mass/Vol] 7.9 g/dL Normal 6.4-8.2 [facility] Comment on above: Performed By: #### C DANY, BUN #### [facility] [address] [address] [address] Marianela Villa Sodium [Moles/Vol] 139 mmol/L Normal 136-145 [facility] Comment on above: Performed By: #### C DANY, BUN #### [facility] [address] [address] [address] Marianela Villa Urea nitrogen [Mass/Vol] 6.0 mg/dL Critically low 7.0-18.0 [facility] Comment on above: Performed By: #### C DANY, BUN #### [facility] [address] [address] [address] Marianela Villa Urea nitrogen/Creatinin e [Mass ratio] 8.6 mg/mg Normal [facility] Comment on above: Performed By: #### C DANY, BUN #### [facility] [address] [address] [address] Marianela Villa SED RATE [facility] 2021 SED RATE 49 mm/hr Critically high <=20 [facility] Comment on above: Performed By: #### C BC #### [facility] [address] [address] [address] Marianela Villa TSHon 02-02-2022 TSH 1.378 uIU/mL Normal 0.358-3.74 0 The [facility] Comment on above: Performed By: #### C DANY, BUN #### [facility] [address] [place] [address] Dr. Marianela Villa UA RANDOM W/MICROSCOPICon BACTERIA NONE SEEN Normal NONE SEEN The [facility] Comment on above: Performed By: #### P REG #### [facility] [address] [place] [address] Dr. Marianela Villa Bilirubin Ql (U) Negative Normal NEGATIVE The [facility] Comment on above: Performed By: #### P REG #### [facility] [address] [place] [address] Dr. Marianela Villa CAST NONE SEEN Normal NONE SEEN [facility] Comment on above: Performed By: #### P REG #### [facility] [address] [place] [address] Dr. Marianela Villa Clarity (U) CLEAR Normal CLEAR The [facility] Comment on above: Performed By: #### P REG #### [facility] [address] [place] [address] Dr. Marianela Villa Color (U) LT. YELLOW Normal YELLOW The [facility] Comment on above: Performed By: #### P REG #### [facility] [address] [place] [address] Dr. Marianela Villa Crystals LM Nom (Urine sed) NONE SEEN Normal NONE SEEN [facility] Comment on above: Performed By: #### P REG #### [facility] [address] [place] [address] Dr. Marianela Villa Epithelial cells LM Ql (Urine sed) FEW Abnormal NONE SEEN /RARE The [facility] Comment on above: Performed By: #### P REG #### [facility] [address] [place] [address] Dr. Marianela Villa Glucose Ql (U) Negative Normal NEGATIVE The [facility] Comment on above: Performed By: #### P REG #### [facility] [address] [place] [address] Dr. Marianela Villa Hemoglobin Ql (U) Negative Normal NEGATIVE [facility] Comment on above: Performed By: #### P REG #### [facility] [address] [place] [address] Dr. Marianela Villa Ketones Ql (U) Negative Normal NEGATIVE [facility] Comment on above: Performed By: #### P REG #### [facility] [address] [place] [address] Dr. Marianela Villa LEUKOCYTES Negative Normal NEGATIVE The [facility] Comment on above: Performed By: #### P REG #### [facility] [address] [place] [address] Dr. Marianela Villa MUCOUS NONE SEEN Normal NONE SEEN The [facility] Comment on above: Performed By: #### P REG #### [facility] [address] [place] [address] Dr. Marianela Villa Nitrite Ql (U) Negative Normal NEGATIVE The [facility] Comment on above: Performed By: #### P REG #### [facility] [address] [place] [address] Dr. Marianela Villa pH (U) 6.5 [pH] Normal 5-9 [facility] Comment on above: Performed By: #### P REG #### [facility] [address] [place] [address] Dr. Marianela Villa RBC NONE SEEN Abnormal 0-2 [facility] Comment on above: Performed By: #### P REG #### [facility] [address] [place] [address] Dr. Marianela Villa SPEC GRAVITY <=1.005 Abnormal 1.005-<=1. 025 [facility] Comment on above: Performed By: #### P REG #### [facility] [address] [place] [address] Dr. Marianela Villa UA PROTEIN Negative Normal NEGATIVE/ TRACE The [facility] Comment on above: Performed By: #### P REG #### [facility] [address] [place] [address] Dr. Marianela Villa Urobilinogen Qn (U) 0.2 {Trish'U}/dL Normal 0.2 - 1.0 [facility] Comment on above: Performed By: #### P REG #### [facility] [address] [place] [address] Dr. Marianela Villa WBC NONE SEEN Normal NONE SEEN The [facility] Comment on above: Performed By: #### P REG #### [facility] [address] [place] [address] Dr. Marianela Villa VITAMIN B12on 02-02-2022 Cobalamin (Vitamin B12) [Mass/Vol] 630.0 pg/mL Normal 193.0-986. 0 [facility] Comment on above: Performed By: #### P REG #### [facility] [address] [place] [address] Dr. Marianela Villa VITAMIN D 25 OHon 02-02-2022 VIT D 25-OH 42.7 ng/mL Normal [facility] Comment on above: Performed By: #### P REG #### [facility] [address] [place] [address] Dr. Marianela Villa VIT D RANGES SEE BELOW Normal [facility] Comment on above: Result Comment: <20 ng/mL Vit D deficient 20 - <30 ng/mL Vit D insufficient 30 - 100 ng/mL Vit D sufficient >100 ng/mL Potential Toxicity Performed By: #### P REG #### [facility] [address] [place] [address] Dr. Marianela Villa [facility] Reporton 01-02-2018 Report Normal [facility] Comment on above: Performed By: #### D NASTUDY #### Performed at [facility], [address] [place] [id number] Vital Signs Date Time Vital Sign Value Performing Clinician Facility 01-02-2024 09:0400 Body height 167.6 cm [facility] 14 [facility] 01-02-2024 09:01-0400 Body mass index (BMI) [Ratio] 41.92 kg/m2 [facility] 14 [facility] 01-02-2024 09:-0400 Body temperature 98.49 [degF] [facility] 14 [facility] 01-02-2024 09:01-0400 Body weight 117.8 kg [facility] 14 [facility] 01-02-2024 09:01-0400 Diastolic blood pressure 54 mm[Hg] [facility] 14 [facility] 01-02-2024 09:01-0400 Heart rate 74 /min [facility] 14 [facility] 01-02-2024 09:01-0400 Respiratory rate 16 /min [facility] 14 [facility] 01-02-2024 09:01-0400 SaO2% (BldA) [Mass fraction] 100 % [facility] 14 [facility] 01-02-2024 09:01-0400 Systolic blood pressure 114 mm[Hg] [facility] 14 [facility] 03-05-2022 13:19-0500 Blood Pressure Location [employer] [facility] [place] 03-05-2022 13:19-0500 Diastolic blood pressure 76 mm[Hg] Halley NILL [facility] [place] 03-05-2022 13:19-0500 Heart rate 70 /min Halley NILL [facility] [place] 03-05-2022 13:19-0500 Respiratory rate 16 /min Halley NILL [facility] [place] 03-05-2022 13:19-0500 Systolic blood pressure 120 mm[Hg] Halley MeographL [facility] [place] Encounters Encounter Date Encounter Type Care Provider Facility Start: 01-09-2024 End: 01-09-2024 ambulatory LINDA SEAN Not Available Start: 01-02-2024 End: 01-02-2024 Patient encounter procedure [facility] Pat Provider 14 [facility] Comment on above: Pre-op testing (Prim otilio Dx); Pelvic pain; Pelvic mass; Preop testing Start: 01-02-2024 End: 01-02-2024 Patient encounter status [facility] 14 [facility] Start: 01-02-2024 End: 01-02-2024 ambulatory [facility] Start: 12-21-2023 Encounter for other preprocedural examination [facility] Start: 12-21-2023 Patient encounter status Metro [address] [place] [address] Start: 12-21-2023 End: 12-21-2023 ambulatory GURPREET Graham [facility] Start: 12-21-2023 Encounter for other preprocedural examination GURPREET Graham [facility] Start: 12-14-2023 End: 12-14-2023 ambulatory LINDA AICHHOLZ Not Available Start: 12-01-2023 End: 12-01-2023 ambulatory JOHANNA BRANDT Not Available Start: 11-07-2023 End: 11-07-2023 ambulatory DYLAN RENZO Not Available Start: 10-03-2023 End: 10-03-2023 ambulatory DYLAN RENZO Not Available Start: 09-29-2023 End: 09-29-2023 ambulatory LINDA AICHHOLZ Not Available Start: 08-31-2023 End: 08-31-2023 ambulatory LINDA AICHHOLZ Not Available Start: 07-19-2022 Encounter for preprocedural laboratory examination DR DYLAN RAJAN . [facility] Start: 07-16-2022 End: 07-17-2022 ambulatory OPERATING ENGINEER LINDA AICHHOLZ Facility:[facility] Start: 07-13-2022 End: 07-14-2022 ambulatory OPERATING ENGINEER LINDA AICHHOLZ Facility:[facility] Start: 07-13-2022 End: 07-14-2022 Encounter for preprocedural laboratory examination OPERATING ENGINEER LINDA AICHHOLZ Facility:[facility] Start: 07-09-2022 Encounter for preprocedural cardiovascular examination DR DYLAN RAJAN . [facility] Start: 07-09-2022 Encounter for preprocedural laboratory examination DR DYLAN RAJAN . [facility] Start: 07-01-2022 End: 07-02-[address] DYLAN RAJAN . Facility:[facility] Start: 07-01-2022 End: 07-02-2022 Encounter for preprocedural cardiovascular examination DR DYLAN RAJAN . Facility:[facility] Start: 05-05-2022 End: 05-06-2022 ambulatory OPERATING ENGINEER LINDA AICHHOLZ Facility:[facility] Start: 04-26-2022 End: 04-26-2022 ambulatory OPERATING ENGINEER LINDA AICHHOLZ Facility:[facility] Start: 04-16-2022 End: 04-17-2022 ambulatory YANG REDMOND Facility:[facility] Start: 04-14-2022 End: 04-15-2022 ambulatory Halley Minesh BENITA Facility:[facility] Start: 04-14-2022 End: 04-14-2022 Patient encounter procedure Halley BARBOSA [facility] Start: 04-07-2022 End: 04-08-2022 ambulatory Halley BARBOSA Facility:CD:[id number] Start: 03-31-2022 End: 04-01-[address] HALLEY BARBOSA . Facility:[facility] Start: 03-11-2022 End: 03-11-2022 ambulatory YANG FRANCEREI Facility:[facility] Start: 03-05-2022 End: 03-06-2022 ambulatory Halley BARBOSA Facility:[facility] Start: 03-05-2022 End: 03-05-2022 Patient encounter procedure Halley BARBOSA [facility] Start: 03-01-2022 End: 03-02-2022 ambulatory YANG REDMOND Facility:[facility] Start: 02-18-2022 End: 02-19-2022 ambulatory YANG REDMOND Facility:[facility] Start: 02-04-2022 End: 02-04-2022 ambulatory YANG FRANCEEMELYJamila Facility:[facility] Start: 02-03-2022 ambulatory Halley BARBOSA Facility:[facility] Start: 02-02-2022 End: 02-03-2022 ambulatory YANG REDMOND Facility:[facility] Start: 01-02-2018 Patient encounter procedure NO PCP [facility] Procedures Date Procedure Procedure Detail Performing Clinician Start: 01-02-2024 Comprehensive metabolic panel Gurpreet henry MD Work Phone: Start: 01-02-2024 Ecg routine ecg w/least 12 lds trcg only w/o i&r Padma Giraldo MD Work Phone: Start: 01-04-2023 Colonoscopy Halley BARBOSA Start: 04-07-2022 Esophagogastroduodenoscopy Halley BARBOSA Start: 04-04-2008 section Halley BARBOSA Start: 04-04-2007 section Halley BARBOSA Extraction of wisdom tooth Ej BARBOSA Plan of Treatment Date Care Activity Detail Author Start: 01-01-2025 Adult BMI Screening Adult BMI Screen ing [facility] Start: 01-01-2025 Tobacco Screening Tobacco Screening [facility] Start: 01-31-2024 End: 01-31-2024 Patient encounter procedure 01/31/2024 11:30 AM EDT Office Visit [facility] [address] [facility] [address] [place] [address] Vee Locke PA [address], [facility] [address] [place] [phone] [facility] Start: 01-13-2024 End: 01-13-2024 Admission to same day surgery center 01/13/2024 7:30 AM EDT - 01/13/2024 9:30 AM EDT Surgery [facility] Surgery [address] [place] [id number] Gurpreet Dejesus MD [address] [place] [address], [address] [place], [place] [id number] DAVINCI LEFT OOPHORECTOMY POSSIBLE RIGHT OOPHORECTOMY [82680 (CPT )] [facility] Comment on above: DAVINCI LEFT OOPHORE CTOMY POSSIBLE RIGHT OOPHORECTOMY [19108 (CPT )] Start: 01-13-2024 End: 01-13-2024 Laparoscopy w/rmvl adnexal structures DAVINCI OOPHORECTOMY PELVIC PAIN, PELVIC MASS 01/13/2024 7:30 AM EDT [facility] Start: 01-13-2024 Subsequent hospital visit by physician 01/13/2024 7:30 AM EDT Hospital Encounter [facility] Surgery [address] [place] [address] Gurpreet Dejesus MD [address] [facility], [address] [place] [address] [facility] Start: 12-04-2023 COVID-19 Vaccine ( season) COVID-19 Vaccine () [facility] Start: 12-04-2023 Influenza vaccination Influenza Vacc ine [facility] Start: 08-29-2001 Adult BMI Follow Up Plan Adult BMI Follow Up Plan [facility] Start: 1995 Depression Screening Depression Scre ening [facility] Start: 08-29-1994 DTaP,Tdap and Td Vaccines (5 - Tdap) DTaP,Tdap and Td Vaccines (5 - Tdap) [facility] Immunizations Immunization Date Immunization Notes Care Provider Fa cility 08-16-2020 SARS-CoV-2 (COVID-19 ) mRNA-1273 vaccine Halley BARBOSA [facility] Comment on above: Result Comment: 2021: TPVALL 07-19-2020 SARS-CoV-2 (COVID-19 ) mRNA-1273 vaccine Halley BARBOSA [facility] Comment on above: Result Comment: 2021: TPVALL NEGATED: Highlighted row has not occurred!03-05-2022 influenza virus vaccine, unspecified formulation Halley BARBOSA [facility] Payers Date Payer Category Payer Private Health Insurance [employer] POS II [id number] 2021-Present [phone] [address] [place] [address] [id number] 1983 Unknown [id number] 2.16.840.1.069626.3.579.2 .727 1983 Unknown [id number] 2.16.840.1.523375.3.579.2 .727 1983 Unknown [id number] 2.16.840.1.638657.3.579.2 .727 1983 Unknown [id number] 2.16.840.1.788698.3.579.2 .593 1983 Unknown [id number] 2.16.840.1.386594.3.579.2 .593 1983 Unknown [id number] 2.16.840.1.448766.3.579.2 .593 1983 Unknown [id number] 2.16840.1.028911.3.579.2 .593 1983 Unknown [id number] 2.16840.1.494605.3.579.2 .593 1983 Unknown [id number] 2.16840.1.434033.3.579.2 .593 1983 Unknown [id number] 2.16840.1.991421.3.579.2 .593 1983 Unknown [id number] 2.16840.1.584130.3.579.2 .593 1983 Unknown [id number] 2.16840.1.383996.3.579.2 .593 1983 Unknown [id number] 2.16.840.1.483042.3.579.2 .593 1983 Unknown [id number] 2.16.840.1.569428.3.579.2 .593 1983 Unknown [id number] 2.16.840.1.913902.3.579.2 .593 1983 Unknown [id number] 2.16.840.1.763714.3.579.2 .593 1983 Unknown [id number] 2.16.840.1.313900.3.579.2 .1285 1983 Unknown [id number] 2.16.840.1.194886.3.579.2 .6 1983 Unknown [id number] 2.16.840.1.935687.3.579.2 .1258 1983 Unknown [id number] 2.16.840.1.348686.3.579.2 .1258 1983 Unknown [id number] 2.16.840.1.527482.3.579.2 .1258 1983 Unknown [id number] 2.16.840.1.697237.3.579.2 .1258 1983 Unknown [id number] 2.16.840.1.982449.3.579.2 .1258 1983 Unknown [id number] 2.16.840.1.674027.3.579.2 .1258 1983 Unknown [id number] 2.16.840.1.944394.3.579.2 .1259 1961 Private Health Insurance [id number] Social History Date Type Detail Facility Start: 03-05-2022 End: 12-21-2023 Tobacco smoking status Never smoked tobacco (finding) [facility] Tobacco smoking status Never [facility] Start: 01-02-2024 Sex Assigned At Female F [facility] Start: 12-21-2023 Tobacco use and exposure Smokeless tobacco non-user [facility] Start: 01-02-2024 Alcoholic beverage intake Current drinker of alcohol (finding) [facility] Start: 01-02-2024 History of Social function [facility] Start: 01-02-2024 Alcohol Comment social [facility] Start: 1985 Sex assigned at Not on file P [facility] Functional Status Date Assessment Result Facility 03-05-2022 Functional Status N/A [facility] Instructions 09-30-2024 Patient Instructions Note Date & Type Note Facility 01-02-2024 Instructions Johanna Gonzalez RN - 01/02/2024 8:45 AM EDT Your surgery/procedure is scheduled at [facility] on 01/13/2024 at 0730 Arrival [id number] [facility] Address: [address] [place] [address] Park in P1 Parking lot located on [facility]. Report to the Entrance B. Check in at the information desk the surgery. The waiting room located on the second floor. If you have any questions prior to surgery, please call Pre-Admission Clinic at [phone] between 7:30 am and 4:30 pm Tuesday through Tuesday. If you have questions the morning of surgery, please call the Pre-op Department at [phone]. Notify your SURGEON if you develop any [...] weekly, hold 1 week prior to surgery: Ramon . Blood thinners: Please contact your prescribing [...] piercings ,hair extensions that contain metal, nail omani, make-up, and contact lens. You may brush [...] RIGHTS AND RESPONSIBILITIES As a patient at [facility], you have the right to: Receive medical care and be informed of who is taking care of you Be treated with dignity and respect Have a family member/sales development representative of choice and your physician notified of your admission Receive information and actively participate in decisions about your care and treatment Refuse care, treatment and services Decide who may provide your support and speak for you Access restoration and spiritual services Participate in ethical issues [...] of hospital charges and payment methods Patient/patient sales development representative responsibilities are to: Provide information about [...] in clean clothes. documented in this encounter [facility] Clinical Note 07-16-2022 Note Date & Type Note Facility 07-16-2022 Note OP Note OPERATION DATE: 07/16/2022 ADDENDUM: Please note that a left ovarian cystectomy was performed using the LigaSure apparatus. The [facility] Clinical Note 07-16-2022 Note Date & Type Note Facility 07-16-2022 Note OPERATIVE NOTE OPERATION DATE: 07/26/2022 PROCEDURE: Robotic assisted laparoscopic hysterectomy with right salpingectomy, left cystectomy of endometrioma and cystoscopy. PREOPERATIVE DIAGNOSIS: Menorrhagia, dysmenorrhea, pelvic pain, dyspareunia. POSTOPERATIVE DIAGNOSIS: Menorrhagia, dysmenorrhea, pelvic pain, dyspareunia including a left ovarian endometrioma. ANESTHESIA: General. SURGEON: Dylan Rajan D.O. COLOR MAKER DYER: PJ Quevedo URINE OUTPUT: Yellow and clear. [...] Anesthesia first. Patient tolerated procedure well. The [facility] Clinical Note 04-07-2022 Note Date & Type [...] pathology results. CC: Linda Redmond, YANG [facility] Clinical Note 03-05-2022 Note Date & Type [...] (COVID-19) mRNA-1273 vaccine 07/19/2020 Recorded 2022-03-03: TPVALL [facility] Comment on above: Result Comment: Elec tronically Signed By: BENITA GUTIERREZ, Halley Smith\Date and Time Signed: 03/05/22 13:57 EST Evaluation + Plan note Note Date & Type Note Facility Evaluation + Plan note No data available for this section [facility] Evaluation note Note Date & Type Note Facility Evaluation note Diagnosis Pre-op testing- Primary Unspecified pre-operative examination Pelvic pain Pelvic mass Abdominal or pelvic swelling, mass or lump, unspecified site Preop testing Unspecified pre-operative examination documented in this encounter [facility] Hospital Discharge instructions Note Date & Type Note Facility Hospital Discharge instructions No data available for this section [facility] Progress note Note Date & Type Note Facility Progress note No data available for this section [facility] Summary Purpose Family History No Family History [...] testing Procedures Follow anesthesia guideines Kandice Cerrato, BICYCLE TAXI DRIVER-OPERATING ENGINEER [address] [place] [address] Referral ID Status Reason Start Date Expiration Date V isits Requested Visits Authorized [id number] Pending Review 01/02/2024 01/01/2025 1 1 Specialty Diagnoses / Procedures Referred By Contac t Referred To Contact Diagnoses Pre-op testing Procedures ECG 12 lead Padma Giraldo MD [address] [place] [address] Referral ID Status Reason Start Date Expiration Date V isits Requested Visits Authorized [id number] Pending Review 01/02/2024 01/01/2025 1 1 Additional Source Comments INFORMATION SOURCE (unrecogn ized section and content) DATE CREATED AUTHOR 05/16/2018 [facility] DATE CREATED AUTHOR AUTHOR'S ORGANIZ ATION 04/17/2022 [facility] DATE CREATED AUTHOR AUTHOR'S ORGANIZ ATION 08/03/2022 [facility] DATE CREATED AUTHOR AUTHOR'S ORGANIZ ATION 12/23/2023 [facility] DATE CREATED AUTHOR AUTHOR'S ORGANIZ ATION 01/02/2024 [facility] DATE CREATED AUTHOR AUTHOR'S ORGANIZ ATION 01/10/2024 [facility] EPIC Patient Care team informatio n (unrecognized section and content) Frame Wirer Relationship Specialty Start Date End Date Linda Redmond, BICYCLE TAXI DRIVER-OPERATING ENGINEER [facility] [place] [address] PCP - General Nurse Practitioner 01/02/24 FOR [...] BE BASED ON THE PRIMARY CLINICAL RECORDS. [employer] provides no warranty or guarantee of the accuracy or completeness of information in this document.
== END 2024-01-11 08:49 | disposition home or self-care (01) ==
LOC: US 08:48
PROVIDERS: PCP Nurse Practitioner; Visit Provider Nurse Practitioner
DX: R74.8 Abnormal levels of other serum enzymes (principal); K80.20 Calculus of gallbladder without cholecystitis without obstruction
CPT/HCPCS: 76705

== ENCOUNTER 2024-02-23 11:22 | Outpatient (OUT) | payer OTHER, SELFPAY ==
[2024-02-23 12:32] LABS: Alanine Aminotransferase 37 U/L (14-59); Albumin Globulin Ratio 0.9; Albumin Level 3.8 g/dL (3.4-5.0); Alkaline Phosphatase 134 U/L (46-116); Aspartate Amino Transferase 25 U/L (15-37); Bilirubin Direct 0.1 mg/dL (0.0-0.2); Bilirubin Total 0.4 mg/dL (0.2-1.0); Gamma Glutamyl Transpeptidase 366 U/L (8-55); Globulin 4.1 g/dL; Total Protein 7.9 g/dL (6.4-8.2)
[2024-02-27 08:08] LABS: Antinuclear Antibodies, IFA Negative (.)
== END 2024-02-23 11:23 | disposition home or self-care (01) ==
LOC: LAB 11:23
PROVIDERS: PCP Nurse Practitioner; Visit Provider Nurse Practitioner
DX: R74.8 Abnormal levels of other serum enzymes (principal)
CPT/HCPCS: 36415; 80076; 82977; 86038

== ENCOUNTER 2024-05-30 10:11 | Outpatient (OUT) | payer OTHER, SELFPAY ==
--- OUTSIDE RECORDS SUMMARY | 2024-05-30 10:27 | XMS_ITS | CCD ---
Author Organization [facility] Care Team Providers Care Senior Java Data Architect Name Role Phone PCP, NO Primary Care Unavailable MENDEL CORADO Attending Unavailable MENDEL CORADO Referring Unavailable AICLINDA SERVIN Primary Care Physician Halley BARBOSA Attending Unavailable AICHREI, LINDA LERNER J Referring Unavailabl e Halley BARBOSA Attending Unavailable ETHANLHalley Attending Unavailable NILLHalley Referring Unavailable AICHHOLZ, HEALTHCARE ADMINISTRATION INTERN LINDA Primary Care Unavailable AICHHOLZ, HEALTHCARE ADMINISTRATION INTERN LINDA Admitting Unavailable AICHHOLZ, HEALTHCARE ADMINISTRATION INTERN LINDA Consulting Unavailable AICHHOLZ, HEALTHCARE ADMINISTRATION INTERN LINDA Attending Unavailable AICHHOLZ, HEALTHCARE ADMINISTRATION INTERN LINDA Admitting Unavailable AICHHOLZ, HEALTHCARE ADMINISTRATION INTERN LINDA Consulting Unavailable AICHHOLZ, HEALTHCARE ADMINISTRATION INTERN LINDA Attending Unavailable AICHHOLZ, HEALTHCARE ADMINISTRATION INTERN LINDA Primary Care Unavailable AICHHOLZ, HEALTHCARE ADMINISTRATION INTERN LINDA Consulting Unavailable AICHHOLZ, HEALTHCARE ADMINISTRATION INTERN LINDA Attending Unavailable AICHHOLZ, HEALTHCARE ADMINISTRATION INTERN LINDA Admitting Unavailable AICHHOLZ, HEALTHCARE ADMINISTRATION INTERN LINDA Primary Care Unavailable DR CEFERINO DORANTES Consulting Unavailable KIANA CHURCH Consulting Unavailable AICHHOLZ, HEALTHCARE ADMINISTRATION INTERN LINDA Consulting Unavailable AICHHOLZ, HEALTHCARE ADMINISTRATION INTERN LINDA Attending Unavailable AICHHOLZ, HEALTHCARE ADMINISTRATION INTERN LINDA Admitting Unavailable AICHHOLZ, HEALTHCARE ADMINISTRATION INTERN LINDA Primary Care Unavailable DR CEFERINO DORANTES Consulting Unavailable NILL ., DR ROWLEY Attending Unavailable NILL ., DR ROWLEY Admitting Unavailable AICHHOLZ, HEALTHCARE ADMINISTRATION INTERN LINDA Primary Care Unavailable NILL ., DR ROWLEY Consulting Unavailable MINGO II, VLAD Consulting Unavailable ALDO ELIZABETH Consulting Unavailable JED LINK Consulting Unavailable NILL ., DR ROWLEY Admitting Unavailable NILL ., DR ROWLEY Consulting Unavailable AICHHOLZ, HEALTHCARE ADMINISTRATION INTERN LINDA Primary Care Unavailable NILL ., DR ROWLEY Attending Unavailable AICHHOLZ, HEALTHCARE ADMINISTRATION INTERN LINDA Primary Care Unavailable MOHINI ., DR RICHARDSON Admitting Unavailable MOHINI ., DR RICHARDSON Consulting Unavailable MOHINI ., DR RICHARDSON Attending Unavailable MOHINI ., DR RICHARDSON Consulting Unavailable MOHINI ., DR RICHARDSON Attending Unavailable MOHINI ., DR RICHARDSON Admitting Unavailable AICHHOLZ, HEALTHCARE ADMINISTRATION INTERN LINDA Primary Care Unavailable AICHHOLZ, HEALTHCARE ADMINISTRATION INTERN LINDA Primary Care Unavailable MOHINI ., DR RICHARDSON Consulting Unavailable MOHINI ., DR RICHARDSON Attending Unavailable MOHINI ., DR RICHARDSON Admitting Unavailable ROBERT HOPKINS Consulting Unavailable ABDI GALVAN Consulting Unavailable AICHHOLZ, HEALTHCARE ADMINISTRATION INTERN LINDA Primary Care Unavailable AICHHOLZ, HEALTHCARE ADMINISTRATION INTERN LINDA Attending Unavailable AICHHOLZ, HEALTHCARE ADMINISTRATION INTERN LINDA Admitting Unavailable AICHHOLZ, HEALTHCARE ADMINISTRATION INTERN LINDA Consulting Unavailable AICHHOLZ, HEALTHCARE ADMINISTRATION INTERN LINDA Consulting Unavailable AICHHOLZ, HEALTHCARE ADMINISTRATION INTERN LINDA Attending Unavailable AICHHOLZ, HEALTHCARE ADMINISTRATION INTERN LINDA Admitting Unavailable AICHHOLZ, HEALTHCARE ADMINISTRATION INTERN LINDA Primary Care Unavailable AICHHOLZ, HEALTHCARE ADMINISTRATION INTERN LINDA Admitting Unavailable AICHHOLZ, HEALTHCARE ADMINISTRATION INTERN LINDA Primary Care Unavailable AICHHOLZ, HEALTHCARE ADMINISTRATION INTERN LINDA Consulting Unavailable AICHHOLZ, HEALTHCARE ADMINISTRATION INTERN LINDA Attending Unavailable AICHHOLZ, HEALTHCARE ADMINISTRATION INTERN LINDA Primary Care Unavailable AICHHOLZ, HEALTHCARE ADMINISTRATION INTERN LINDA Admitting Unavailable AICHHOLZ, HEALTHCARE ADMINISTRATION INTERN LINDA Consulting Unavailable AICHHOLZ, HEALTHCARE ADMINISTRATION INTERN LINDA Attending Unavailable Meir García MD Primary Care Provider GURPREET DEJESUS Attending Unavailable WALKUPNOEIL Attending Unavailable AICHHOLZ, LINDA J Primary Care Unavailable AICHHOLZ, LINDA Attending Unavailable AICHHOLZ, LINDA Attending Unavailable JOSH RAJAN Attending Unavailable JOSH RAJAN Attending Unavailable JOHANNA BRANDT Attending Unavailable AICHHOLZ, LINDA Attending Unavailable AICHHOLZ, LINDA Attending Unavailable AICHHOLZ, LINDA Attending Unavailable AICHHOLZ, LINDA J Referring Unavailable AICHHOLZ, LINDA J Primary Care Unavailable Aichholz SANDWICH MAKER-HEALTHCARE ADMINISTRATION INTERN, Linda J Primary Care Provider ELENI FLORES Attending Unavailable JACQUEUP, ONEIL L Referring Unavailable AICHHOLZ, LINDA J Primary Care Unavailable AICHHOLZ, LINDA J Referring Unavailable AICHHOLZ, LINDA J Primary Care Unavailable WALKUP, ONEIL L Attending Unavailable LINDA REDMOND Referring Unavailable LINDA REDMOND Primary Care Unavailable LINDA REDMOND Primary Care Unavailable GURPREET DEJESUS Admitting Unavailable GURPREET DEJESUS Attending Unavailable GURPREET DEJESUS Referring Unavailable LINDA REDMOND Primary Care Unavailable Unavailable Primary Care Provider Unavailabl e Allergies Allergy Classification Reported Allergen(s) Allergy Type Date of Onset Reaction(s) Facility (20 sources) Cephalexin; Translations: [cephalexin] Drug Allergy Syncope (disorder), Syncope General Surgery [facility] (2 sources) Cephalexin Drug Allergy [facility] Repository Medications Current Medications Medication Drug Class(es) Dates Sig (Normalized) Sig (Original) busPIRone hydrochloride 15 mg oral tablet (20 sources) Start: 03-03-2022 busPIRone 15 mg Tab 22.5 mg = 1.5 tab(s), Oral, BID, Refills(s) 0 Start Date: 03/03/22 Status: Ordered take 7.5 mg by mouth in the morn ing busPIRone (Buspar) 15 MG tablet Take 7.5 mg by mouth in the morning and 7.5 mg before bedtime. Active take 0.5 tablet by m outh in the morning, then take 0.5 tablet by mouth at bedtime busPIRone (BUSPAR) 15 mg tablet Indications: generalized anxiety disorder Take 0.5 tablets (7.5 mg total) by mouth in the morning and 0.5 tablets (7.5 mg total) before bedtime. Indications: repeated episodes of anxiety. Active cholecalciferol 0.05 mg oral capsule (8 sources) Vitamin D take 1 capsule by mouth once daily in the morning cholecalciferol, vitamin D3, (VITAMIN D3) 2,000 units capsule Indications: prevention of vitamin D deficiency Take 1 capsule (2,000 Units total) by mouth in the morning. Indications: prevention of vitamin D deficiency. Active clonazePAM 0.5 mg oral tablet (20 sources) Benzodiazepine Start: 022 take 1 tablet by mouth three times daily ClonazePAM 0.5 mg Tab 0.5 mg = 1 tab(s), Oral, TID, Refills(s) 0 Start Date: 03/03/22 Status: Ordered doxycycline hyclate 100 mg oral tablet (4 sources) Tetracycline-class Drug Start: take 1 tablet by mouth in the morning, then take 1 tablet by mouth at bedtime doxycycline (Vibra-Tabs) 100 MG tablet Indications: Subacute maxillary sinusitis Take 1 tablet (100 mg) by mouth in the morning and 1 tablet (100 mg) before bedtime. Take with a full glass of water and do not lie down for at least 30 minutes after.. 20 tablet 02/23/2024 Active Start: 02-23-2024 take 1 tablet by tess th in the morning, then take 1 tablet by mouth at bedtime doxycycline (Vibra-Tabs) 100 MG tablet Indications: Subacute maxillary sinusitis Take 1 tablet (100 mg) by mouth in the morning and 1 tablet (100 mg) before bedtime. Take with a full glass of water and do not lie down for at least 30 minutes after.. 20 tablet 02/23/2024 Active Start: 02-23-2024 take 1 tablet by tess th in the morning, then take 1 tablet by mouth at bedtime doxycycline (Vibra-Tabs) 100 MG tablet Indications: Subacute maxillary sinusitis Take 1 tablet (100 mg) by mouth in the morning and 1 tablet (100 mg) before bedtime. Take with a full glass of water and do not lie down for at least 30 minutes after.. 20 tablet 02/23/2024 Active escitalopram 20 mg oral tablet (2 sources) Serotonin Reuptake Inhibitor Start: 03-03-2022 take 1 tablet by mouth once daily Lexapro 20 mg Tab 20 mg = 1 tab(s), Oral, Daily, Refills(s) 0 Start Date: 03/03/22 Status: Ordered 84 hr estradiol 0.33518 mg/hr transdermal system (5 sources) Estrogen Start: 01-16-2024 End: 02-01-2024 estradioL (VIVELLE-DOT) 0.05 mg/[address] 1 patch on the skin 2 (two) times a week. 8 patch 01/16/2024 02/01/2024 Discontinued Start: 01-13-2024 End: 02-23-2024 apply 1 dose transdermal route two times weekly Alta 0.05 MG/24HR Place 1 patch on the skin 2 (two) times a week 01/13/2024 02/23/2024 Discontinued (Therapy completed) 84 hr estradiol 0.65963 mg/hr / norethindrone acetate 0.12261 mg/hr transdermal system (14 sources) Estrogen Start: 05-03-2024 End: 05-21-2024 estradiol-norethindrone acet (COMBIPATCH) 0.05-0.14 mg/24 hr Indications: Menopause Place 1 patch on the skin 2 (two) times a week. 8 patch 2 05/21/2024 Active Start: 05-03-2024 estradiol-nore thindrone acet (COMBIPATCH) 0.05-0.14 mg/24 hr Indications: Menopause Place 1 patch on the skin 2 (two) times a week. 8 patch 2 05/03/2024 Active Start: 02-02-2024 apply 0.05-0.14 mg transdermal route once daily estradiol-norethindrone (Combipatch) 0.05-0.14 MG/DAY Place 1 patch on the skin 2 (two) times a week 02/02/2024 Active Start: 02-02-2024 End: 05-02-2024 estradiol-norethindrone acet (COMBIPATCH) 0.05-0.14 mg/24 hr Indications: Menopause Place 1 patch on the skin 2 (two) times a week. 8 patch 3 02/02/2024 05/02/2024 Discontinued (Reorder) Start: 02-02-2024 estradiol-nore thindrone acet (COMBIPATCH) 0.05-0.14 mg/24 hr Indications: Menopause Place 1 patch on the skin 2 (two) times a week. 8 patch 3 02/02/2024 Active ferrous sulfate 325 mg delayed release oral tablet (2 sources) Start: 03-05-2022 take 1 tablet by mouth twice daily ferrous sulfate 325 mg oral enteric coated tablet 325 mg = 1 tab(s), Oral, BID, Refills(s) 0 Start Date: 03/05/22 Status: Ordered folic acid 5 mg oral tablet (20 sources) take 5 mg by mouth in the morning FOLIC ACID ORAL Take 5 mg by mouth in the morning. Active take 0.4 mg by mouth once daily folic acid (Folvite) 400 MCG tablet Take 0.4 mg by mouth Daily Active take 1 tablet by mouth in the mo rning folic acid (FOLVITE) 400 MCG tablet Take 1 tablet (0.4 mg total) by mouth in the morning. Active loratadine 10 mg oral tablet (2 sources) Start: 03-03-2022 take 1 tablet by mouth once daily loratadine 10 mg Tab 10 mg = 1 tab(s), Oral, Daily, Refills(s) 0 Start Date: 03/03/22 Status: Ordered magnesium gluconate 550 mg oral tablet (17 sources) End: 02-23-2024 magnesium 30 MG tablet Take 600 mg by mouth Daily 02/23/2024 Discontinued (Therapy completed) magnesium oxide 300 mg magnesium tablet (1 source) take 2 tablets by mouth in the morning magnesium oxide 300 mg magnesium tablet Take 600 mg by mouth in the morning. Pt unsure of dose. Active Multi Vitamins oral tablet (2 sources) Start: 03-03-2022 take 1 tablet by mouth once daily Multi Vitamins oral tablet 1 tab(s), Oral, Daily, Refill(s) 0 Start Date: 03/03/22 Status: Ordered Multiple Vitamin (multivitamin) tablet (20 sources) take 1 tablet by mouth in the morning Multiple Vitamin (multivitamin) tablet Take 1 tablet by mouth in the morning. Active lzhixwgmpjbp-Ul-bhqm -minerals tablet (9 sources) take 1 tablet by mouth in the morning fhzwkslerrsn-Qj-dr on-minerals tablet Take 1 tablet by mouth in the morning. Active oxyCODONE hydrochloride 5 mg oral tablet (3 sources) Opioid Agonist Start: 01-13-2024 End: 02-23-2024 take 1 tablet by mouth every four hours as needed oxyCODONE (Roxicodone) 5 MG immediate release tablet Take 5 mg by mouth every 4 (four) hours if needed 01/13/2024 02/23/2024 Discontinued (Therapy completed) pantoprazole 40 mg delayed release oral tablet (2 sources) Proton Pump Inhibitor Start: 03-03-2022 take 1 tablet by mouth once daily Pantoprazole [address] Tab 40 mg = 1 tab(s), Oral, Daily, Refills(s) 0 Start Date: 03/03/22 Status: Ordered sucralfate 1000 mg oral tablet (1 source) Aluminum Complex Start: 04-14-2022 Carafate 1 gr am Tab 1 gm = 1 tab(s), Oral, QIDACHS, Refills(s) 0 Start Date: 04/14/22 Status: Ordered Completed/Discontinued Medications Medication Drug Class(es) Dates Sig (Normalized) Sig (Original) acetaminophen 500 mg oral tablet (9 sources) Start: 01-13-2024 End: 03-22-2024 take 2 tablets by mouth every six hours as needed for pain acetaminophen (TYLENOL EXTRA STRENGTH) 500 mg tablet Take 2 tablets (1,000 mg total) by mouth every 6 (six) hours as needed for pain. 60 tablet 01/13/2024 03/22/2024 Discontinued (Therapy completed) docusate sodium 50 mg / sennosides, [facility] 8.6 mg oral tablet (7 sources) Start: 01-13-2024 End: 03-22-2024 take 1 tablet by mouth in the morning sennosides-docusate sodium (SENNA WITH DOCUSATE SODIUM) 8.6-50 mg Take 1 tablet by mouth in the morning. 60 tablet 01/13/2024 03/22/2024 Discontinued (Therapy completed) ibuprofen 800 mg oral tablet (7 sources) Nonsteroidal Anti-inflammatory Drug Start: 01-13-2024 End: 03-22-2024 take 1 tablet by mouth every eight hours as needed for pain ibuprofen (MOTRIN) 800 mg tablet Take 1 tablet (800 mg total) by mouth every 8 (eight) hours as needed for pain. 60 tablet 01/13/2024 03/22/2024 Discontinued (Therapy completed) magnesium oxide 500 mg oral tablet (5 sources) End: 03-22-2024 take 1 tablet by mouth in the morning magnesium oxide 500 mg tablet Take 1 tablet (500 mg total) by mouth in the morning. Pt unsure of dose. 03/22/2024 Discontinued (Therapy completed) Problems Active Problems Problem Classification Problem Date Documented Da te Episodic/Chronic Anxiety disorders (20 sources) Mixed anxiety and depressive disorder; Translations: [Anxiety disorder, unspecified] Onset: 04-14-2022 03-03-2022 Chronic Blindness and vision defects (20 sources) Visual impairment; Translations: [Unspecified visual loss] Onset: 08-31-2023 03-03-2022 Chronic Deficiency and other anemia (5 sources) Iron deficiency anemia, unspecified; Translations: [IRON DEFICIENCY ANEMIA UNSPECIFIED] Onset: 04-14-2022 Episodic Digestive congenital anomalies (1 source) Other specified congenital malformations of intestine; Translations: [OTH SPEC CONGEN MALFORM INTESTINE] Onset: 04-14-2022 Chronic Disorders of lipid metabolism (20 sources) Mixed hyperlipidemia; Translations: [Mixed hyperlipidemia] Onset: 09-29-2023 09-29-2023 Chronic Endometriosis (1 source) Endometriosis (clinical); Translations: [Endometriosis, unspecified] 05-02-2024 Chronic Endometriosis (1 source) Endometriosis; Translations: [DEEP ENDOMETRIOSIS OF LEFT OVARY] Onset: 08-02-2022 Gastritis and duodenitis (1 source) Unspecified chronic gastritis without bleeding; Translations: [UNS CHRONIC GASTRITIS W/O BLEEDING] Onset: 04-14-2022 Chronic Menopausal disorders (1 source) Menopausal flushing; Translations: [Menopausal and female climacteric states] 05-02-2024 Chronic Mood disorders (1 source) Mood disorders; Translations: [DEPRESSION UNSPECIFIED] Onset: 04-14-2022 Other aftercare (1 source) Other manager long term care (current) drug therapy; Translations: [OTH SNF CURRENT DRUG THERAPY] Onset: 08-02-2022 Episodic Other female genital disorders (1 source) Unspecified dyspareunia; Translations: [UNSPECIFIED DYSPAREUNIA] Onset: 08-02-2022 Chronic Other female genital disorders (20 sources) Dyspareunia; Translations: [Unspecified dyspareunia] Onset: 08-31-2023 08-31-2023 Chronic Other female genital disorders (1 source) Other specified conditions associated with female genital organs and menstrual cycle; Translations: [OTH SPEC COND FE GEN ORG MENST CYCL] Onset: 08-02-2022 Episodic Other gastrointestinal disorders (1 source) Altered bowel function; Translations: [Change in bowel habit] Onset: 03-05-2022 Episodic Other gastrointestinal disorders (2 sources) Alteration in bowel elimination 03-05-2022 Episodic Other nutritional; endocrine; and metabolic disorders (2 sources) Body mass index 30+ - obesity 03-05-2022 Chronic Other nutritional; endocrine; and metabolic disorders (7 sources) Obesity; Translations: [Obesity, unspecified] Onset: 08-31-2023 03-03-2022 Chronic Other nutritional; endocrine; and metabolic [...] Chronic Other nutritional; endocrine; and metabolic disorders (20 sources) Obesity caused by energy imbalance; Translations: [Morbid (severe) obesity due to excess calories] Onset: 08-31-2023 12-14-2023 Chronic Other nutritional; endocrine; and metabolic disorders (19 sources) Body mass index 40+ - severely obese; Translations: [Body mass index (BMI) 40.0-44.9, adult] Onset: 12-14-2023 12-14-2023 Chronic Other nutritional; endocrine; and metabolic disorders (3 sources) Loss of appetite; Translations: [Anorexia] Onset: 03-05-2022 Episodic Other nutritional; endocrine; and metabolic disorders (2 sources) Weight loss 03-03-2022 Episodic Residual codes; unclassified (1 source) Pain, unspecified; Translations: [Pain, unspecified] Onset: 03-19-2024 Episodic Residual codes; unclassified (3 sources) Menopause present; Translations: [Asymptomatic menopausal state] 05-02-2024 Episodic Unclassified (1 source) PERSONAL HISTORY OF COVID-19; Translations: [PERSONAL HISTORY OF COVID-19] Onset: 04-14-2022 Unclassified (1 source) CONTACT W/AND (SUSP) EXPOS COVID-19; Translations: [CONTACT W/AND (SUSP) EXPOS COVID-19] Onset: 04-03-2022 Unclassified (1 source) Post-op Onset: 01-31-2024 Unclassified (1 source) New Patient Onset: 03-19-2024 Unclassified (1 source) PELVIC PAIN, PELVIC MASS Onset: 01-13-2024 Past or Other Problems Problem Classification Problem Date Documented Da te Episodic/Chronic Abdominal pain (20 sources) Pelvic and perineal pain; Translations: [Upper abdominal pain, unspecified] Onset: 04-07-2022 Episodic Biliary tract disease (19 sources) Cholelithiasis without obstruction; Translations: [Calculus of gallbladder without cholecystitis without obstruction] Onset: 01-09-2024 01-09-2024 Episodic Calculus of urinary tract (13 sources) Kidney stone; Translations: [Calculus of kidney] Onset: 01-09-2024 01-09-2024 Episodic Deficiency and other anemia (20 sources) Iron deficiency anemia; Translations: [Iron deficiency anemia, unspecified] Onset: 03-05-2022 Episodic Gastritis and duodenitis (20 sources) Gastritis; Translations: [Other gastritis without bleeding] Onset: 04-14-2022 Episodic Genitourinary symptoms and ill-defined conditions (1 source) Other polyuria; Translations: [OTHER POLYURIA] Onset: 02-08-2022 Episodic Menstrual disorders (20 sources) Dysmenorrhea, unspecified; Translations: [Excessive and frequent menstruation with regular cycle] Onset: 07-16-2022 Resolved: 05-30-2024 Chronic Nausea and vomiting (4 sources) Nausea; Translations: [Nausea] Onset: 03-05-2022 Episodic Nonmalignant breast conditions (4 sources) Unspecified lump in the right breast, upper outer quadrant; Translations: [UNS LUMP IN RT BREAST UP OUTR QUAD] Onset: 04-23-2022 Episodic Other aftercare (2 sources) Surgical follow-up; Translations: [Encounter for follow-up examination after completed treatment for conditions other than malignant neoplasm] 12-01-2023 Episodic Other aftercare (1 source) Postoperative visit; Translations: [Encounter for other specified surgical aftercare] 01-31-2024 Episodic Other and unspecified benign neoplasm (1 source) Benign neoplasm of right breast; Translations: [BENIGN NEOPLASM OF RIGHT BREAST] Onset: 04-29-2022 Episodic Other gastrointestinal disorders (20 sources) Diarrhea; Translations: [Diarrhea, unspecified] Onset: 03-05-2022 Episodic Other gastrointestinal disorders (5 sources) Diarrhea, unspecified; Translations: [DIARRHEA UNSPECIFIED] Onset: 02-04-2022 Episodic Other gastrointestinal disorders (20 sources) Abdominal bloating; Translations: [Abdominal distension (gaseous)] Onset: 08-31-2023 08-31-2023 Episodic Other gastrointestinal disorders (20 sources) Pelvic mass; Translations: [Intra-abdominal and pelvic swelling, mass and lump, unspecified site] Onset: 12-21-2023 01-09-2024 Episodic Other gastrointestinal disorders (2 sources) Intra-abdominal and pelvic swelling, mass and lump, unspecified site; Translations: [Intra-abdominal and pelvic swelling, mass and lump, unspecified site] Onset: 12-21-2023 Episodic Other liver diseases (20 sources) Alkaline phosphatase raised; Translations: [Abnormal levels of other serum enzymes] Onset: 09-29-2023 09-29-2023 Episodic Other liver diseases (20 sources) Gamma-glutamyl transferase raised; Translations: [Abnormal levels of other serum enzymes] Onset: 12-13-2023 12-13-2023 Episodic Other nutritional; endocrine; and metabolic disorders (5 sources) Abnormal weight loss; Translations: [ABNORMAL WEIGHT LOSS] Onset: 02-02-2022 Episodic Other screening for suspected conditions (not mental disorders or infectious disease) (20 sources) Encounter for screening for malignant neoplasm of cervix; Translations: [Patient encounter status] Onset: 03-11-2022 Episodic Other skin disorders (1 source) Nonscarring hair loss, unspecified; Translations: [NONSCARRING HAIR LOSS UNSPECIFIED] Onset: 02-08-2022 Episodic Other upper respiratory infections (7 sources) Acute maxillary sinusitis; Translations: [Acute maxillary sinusitis, unspecified] Onset: 02-23-2024 Resolved: 05-30-2024 02-23-2024 Episodic Ovarian cyst (20 sources) Unspecified ovarian cyst, left side; Translations: [Cyst of left ovary] Onset: 04-23-2022 10-03-2023 Episodic Results Test Name Value Interpretation Reference Range Facility ALL GAMMA GLUTAMYL TRANSPEPT IDASEon 02-23-2024 Amylase [Catalytic activity/Vol] 366 U/L [facility] 8 - [facility] Albumin [Mass/Vol] 3.8 g/dL 3.4 - 5.0 g/dL [facility] ALBUMIN GLOBULIN RATIO 0.9 [facility] ALP [Catalytic activity/Vol] 134 U/L High 46 - 116 U/L [facility] ALT [Catalytic activity/Vol] 37 U/L 14 - 59 U/L [facility] AST [Catalytic activity/Vol] 25 U/L 15 - 37 U/L [facility] Bilirubin [Mass/Vol] 0.4 mg/dL 0.2 - 1.0 mg/dL [facility] Bilirubin.indirect [Mass/Vol] 0.1 mg/dL 0.0 - 0.2 mg/dL [facility] Globulin (S) [Mass/Vol] 4.1 g/dL [facility] Protein [Mass/Vol] 7.9 g/dL 6.4 - 8.2 g/dL [facility] No Panel Informationon 02-22 Interpretation and review of laboratory results Abnormal [facility]ology[facility] 024 Surgical Pathology Normal [facility] Comment on above: Result Comment: [facility] [address] [place] [address] Surgical Pathology Consultation Patient Name:EMILY COLBERT:1985 (Age: 38)Gender:FTaken:4Reported:01/23/2024hysician(s):Gurpreet Dejesus M.D. ([phone])Copy To: Rec. #:[id number]: #[id number] Final Pathologic Diagnosis Ovaries, bilateral oophorectomy: Endometriosis involves ovarian and tubal elements. Hemorrhagic fibrous adhesions. Report Electronically Signed Out 01/23/2024John Parkinson MD [place] [address], License number: [id number]. Clinical History Pelvic pain, pelvic mass. Gross Description Received in formalin labeled CHINMAY, ovary, bilateral are numerous morcellated portions of dark pink-montoya, focally hemorrhagic, rubbery-soft tissue, 49 g, 9.0 x 6.5 x 2.0 cm in aggregate. The identifiable capsular surface is pink-montoya, partially smooth, and glistening. A disrupted cyst is identified within one fragment, 2.4 x 1.3 cm. The remaining apparent parenchyma is pink-montoya, glistening with multiple scattered [id number] to yellow-montoya times the bone marrow, smooth lined simple cysts, and without definitive papillations or excrescences identified. Sports Activities Foul Judge sections of the specimen are submitted in cassettes A-J (to include disrupted cyst in cassette A/B). (10, ss, [id number], m6) BETINA jkh/01/13/2024NSK Specimen(s) Received Ovary, bilateral Fee Codes(s): 1; 56694 ALL GAMMA GLUTAMYL TRANSPEPT IDASEon 01-09-2024 Amylase [Catalytic activity/Vol] 479 U/L High 8 - 55 U/L [facility] Interpretation and review of laboratory results [facility] CBC AND AUTO DIFFon 01-02-20 ABSOLUTE BASOPHIL 0.1 X10E9/L Normal 0.0-0.2 [facility] Comment on above: Performed By: #### C BCA, CMP #### [facility] ([id number]) [address] [address] ABSOLUTE NEUTROPHIL 5.3 X10E9/L Normal 1.5-6.6 [facility] Comment on above: Performed By: #### C BCA, CMP #### [facility] ([id number]) [address] [address] Basophils/100 WBC (Bld) 1.1 % Normal [facility] Comment on above: Performed By: #### C BCA, CMP #### [facility] ([id number]) [address] [address] Eosinophils (Bld) [#/Vol] 0.1 10*3/uL Normal 0.0-0.4 [facility] Comment on above: Performed By: #### C BCA, CMP #### [facility] ([id number]) [address] [address] Eosinophils/100 WBC (Bld) 1.4 % Normal [facility] Comment on above: Performed By: #### C BCA, CMP #### [facility] ([id number]) [address] [place] [address] Erythrocyte distribution width (RBC) [Ratio] 14.2 % Normal 11.5-15.0 [facility] Comment on above: Performed By: #### C ANALIA, CMP #### [facility] ([id number]) [address] [place] [address] Hematocrit (Bld) [Volume fraction] 41.0 % Normal 35-47 [facility] Comment on above: Performed By: #### C ANALIA, CMP #### [facility] ([id number]) [address] [place] [address] Hemoglobin (Bld) [Mass/Vol] 14.1 g/dL Normal 11.7-15.5 [facility] Comment on above: Performed By: #### C ANALIA, CMP #### [facility] ([id number]) [address] [place] [address] Lymphocytes (Bld) [#/Vol] 2.1 10*3/uL Normal 1.0-3.5 [facility] Comment on above: Performed By: #### C ANALIA, CMP #### [facility] ([id number]) [address], [address] [place] [address] Lymphocytes/100 WBC (Bld) 25.7 % Normal [facility] Comment on above: Performed By: #### C ANALIA, CMP #### [facility] ([id number]) [address] [address] [place] [address] MCH (RBC) [Entitic mass] 31.9 pg Normal 27-34 [facility] Comment on above: Performed By: #### C BCA, CMP #### [facility] ([id number]) [address] [address] [place] [address] MCHC (RBC) [Mass/Vol] 34.3 g/dL Normal 32-36 [facility] Comment on above: Performed By: #### C BCA, CMP #### [facility] ([id number]) [address], [address] [place] [address] MCV (RBC) [Entitic vol] 93 fL Normal 80-100 [facility] Comment on above: Performed By: #### C ANALIA, CMP #### [facility] ([id number]) [address] [place] [address] Monocytes (Bld) [#/Vol] 0.5 10*3/uL Normal 0-0.9 [facility] Comment on above: Performed By: #### C ANALIA, CMP #### [facility] ([id number]) [address] [place] [address] Monocytes/100 WBC (Bld) 6.1 % Normal [facility] Comment on above: Performed By: #### C ANALIA, CMP #### [facility] ([id number]) [address], [address] [place] [address] Neutrophils/100 WBC (Bld) 65.7 % Normal [facility] Comment on above: Performed By: #### C ANALIA, CMP #### [facility] ([id number]) [address] [place] [address] Platelet mean volume (Bld) [Entitic vol] 9.7 fL Normal 7-12 [facility] Comment on above: Performed By: #### C ANALIA, CMP #### [facility] ([id number]) [address], [address] [place] [address] Platelets (Bld) [#/Vol] 188 10*3/uL Normal 150-450 [facility] Comment on above: Performed By: #### C BCA, CMP #### [facility] ([id number]) [address], [address] [place] [address] RBC COUNT 4.42 X10E12/L Normal 3.80-5.20 [facility] Comment on above: Performed By: #### C BCA, CMP #### [facility] ([id number]) [address], [address] [place] [address] WBC (Bld) [#/Vol] 8.1 10*3/uL Normal 4.0-11.0 [facility] Comment on above: Performed By: #### C ANALIA, CMP #### [facility] ([id number]) [address] [place] [address] CBC with auto diffon 024 Basophils (Bld) [#/Vol] 0.1 10*3/uL [facility] Basophils/100 WBC (Bld) 1.1 % [facility] Eosinophils (Bld) [#/Vol] 0.1 10*3/uL [facility] Eosinophils/100 WBC (Bld) 1.4 % [facility] Erythrocyte distribution width (RBC) [Ratio] 14.2 % 11.5 - 15.0 % [facility] Hematocrit (Bld) [Volume fraction] 41.0 % 35 - 47 % [facility] Hemoglobin (Bld) [Mass/Vol] 14.1 g/dL 11.7 - 15.5 g/dL [facility] Lymphocytes (Bld) [#/Vol] 2.1 10*3/uL [facility] Lymphocytes/100 WBC (Bld) 25.7 % [facility] MCH (RBC) [Entitic mass] 31.9 pg 27 - 34 pg [facility] MCHC (RBC) [Mass/Vol] 34.3 g/dL 32 - 36 g/dL [facility] MCV (RBC) [Entitic vol] 93 fL 80 - 100 fL [facility] Monocytes (Bld) [#/Vol] 0.5 10*3/uL [facility] Monocytes/100 WBC (Bld) 6.1 % [facility] Neutrophils (Bld) [#/Vol] 5.3 10*3/uL [facility] Neutrophils/100 WBC (Bld) 65.7 % [facility] Platelet mean volume (Bld) [Entitic vol] 9.7 fL 7 - 12 fL [facility] Platelets (Bld) [#/Vol] 188 10*3/uL [facility] RBC (Bld) [#/Vol] 4.42 10*6/uL [facility] WBC corrected for nucl RBC Auto (Bld) [#/Vol] 8.1 [facility] COMPREHENSIVE METABOLIC PANE Jeramy 01-02-2024 Albumin [Mass/Vol] 4.4 g/dL Normal 3.2-5.3 [facility] Comment on above: Performed By: #### C BCA, CMP #### [facility] ([id number]) [address], [address] [place] [address] ALP [Catalytic activity/Vol] 157 U/L High 39-130 [facility] Comment on above: Performed By: #### C BCA, CMP #### [facility] ([id number]) [address], [address] [place] [address] ALT [Catalytic activity/Vol] 51 U/L High 0-31 [facility] Comment on above: Performed By: #### C BCA, CMP #### [facility] ([id number]) [address], [address] [place] [address] Anion gap [Moles/Vol] 9 mmol/L Normal 5-15 [facility] Comment on above: Performed By: #### C BCA, CMP #### [facility] ([id number]) [address], [address] [place] [address] AST [Catalytic activity/Vol] 51 U/L High 0-41 [facility] Comment on above: Performed By: #### C BCA, CMP #### [facility] ([id number]) [address], [address] [place] [address] Bilirubin [Mass/Vol] 0.3 mg/dL Normal 0.3-1.2 [facility] Comment on above: Performed By: #### C BCA, CMP #### [facility] ([id number]) [address], [address] [place] [address] Calcium [Mass/Vol] 9.8 mg/dL Normal 8.5-10.5 [facility] Comment on above: Performed By: #### C BCA, CMP #### [facility] ([id number]) [address], [address] [place] [address] Chloride [Moles/Vol] 104 mmol/L Normal 98-109 [facility] Comment on above: Performed By: #### C BCA, CMP #### [facility] ([id number]) [address] [place] [address] CO2 [Moles/Vol] 25 mmol/L Normal 22-32 [facility] Comment on above: Performed By: #### C BCA, CMP #### [facility] ([id number]) [address] [address] [place] [address] Creatinine [Mass/Vol] 0.86 mg/dL Normal 0.40-1.00 [facility] Comment on above: Result Comment: METH OD TRACEABLE TO IDMS STANDARD Performed By: #### C BCA, CMP #### [facility] ([id number]) [address] [address] [place] [address] GFR/1.73 sq M.predicted among non-blacks MDRD (S/P/Bld) [Vol rate/Area] 88 mL/min/{1.73_m2} Normal >59 [facility] Comment on above: Result Comment: Reported eGFR is based on the CKD-EPI 2020 equation that does not use a race coefficient. Performed By: #### C BCA, CMP #### [facility] ([id number]) [address] [address] [place] [address] Glucose [Mass/Vol] 92 mg/dL Normal 65-99 [facility] Comment on above: Performed By: #### C BCA, CMP #### [facility] ([id number]) [address], [address] [place] [address] Potassium [Moles/Vol] 4.3 mmol/L Normal 3.5-5.0 [facility] Comment on above: Performed By: #### C BCA, CMP #### [facility] ([id number]) [address], [address] [place] [address] Protein [Mass/Vol] 7.7 g/dL Normal 6.0-8.0 [facility] Comment on above: Performed By: #### C BCA, CMP #### [facility] ([id number]) [address], [address] [place] [address] Sodium [Moles/Vol] 138 mmol/L Normal 134-146 [facility] Comment on above: Performed By: #### C BCA, CMP #### [facility] ([id number]) [address] [place] [address] Urea nitrogen [Mass/Vol] 13 mg/dL Normal 5-23 [facility] Comment on above: Performed By: #### C BCA, CMP #### [facility] ([id number]) [address], [address] [place] [address] Comprehensive metabolic pane jeramy 01-02-2024 Albumin [Mass/Vol] 4.4 g/dL 3.2 - 5.3 g/dL [facility] ALP [Catalytic activity/Vol] 157 U/L High 39 - 130 U/L [facility] ALT No additional P-5'-P [Catalytic activity/Vol] 51 U/L High 0 - 31 U/L [facility] Anion gap [Moles/Vol] 9 mmol/L 5 - 15 mmol/L [facility] AST [Catalytic activity/Vol] 51 U/L High 0 - 41 U/L [facility] Bilirubin [Mass/Vol] 0.3 mg/dL 0.3 - 1.2 mg/dL [facility] Calcium [Mass/Vol] 9.8 mg/dL 8.5 - 10. 5 mg/dL [facility] Chloride [Moles/Vol] 104 mmol/L 98 - 109 mmol/L [facility] CO2 [Moles/Vol] 25 mmol/L 22 - 32 mmol/L [facility] Creatinine [Mass/Vol] 0.86 mg/dL 0.40 - 1.00 mg/dL [facility] Comment on above: METHOD TRACEABLE TO [facility] STANDARD eGFR (CKD-EPI)non-race dependent 88 - PINF [facility] Comment on above: Reported eGFR is based on the CKD-EPI 2020 equation that does not use a race coefficient. Glucose [Mass/Vol] 92 mg/dL 65 - 99 mg/dL [facility] Interpretation and review of laboratory results Abnormal [facility] Potassium [Moles/Vol] 4.3 mmol/L 3.5 - 5.0 mmol/L [facility] Protein [Mass/Vol] 7.7 g/dL 6.0 - 8.0 g/dL [facility] Sodium [Moles/Vol] 138 mmol/L 134 - 146 mmol/L [facility] Urea nitrogen [Mass/Vol] 13 mg/dL 5 - 23 mg/dL [facility] ECG 12 leadon 01-02-2024 TRACEMASTERVUE [facility] ALL GAMMA GLUTAMYL TRANSPEPT IDASEon 12-08-2023 Amylase [Catalytic activity/Vol] 405 U/L High 8 - 55 U/L [facility] LIVER PANELon 4 Albumin [Mass/Vol] 4.0 g/dL 3.4 - 5.0 g/dL [facility] ALBUMIN GLOBULIN RATIO 1.0 [facility] ALP [Catalytic activity/Vol] 183 U/L High 46 - 116 U/L [facility] ALT [Catalytic activity/Vol] 39 U/L 14 - 59 U/L [facility] AST [Catalytic activity/Vol] 25 U/L 15 - 37 U/L [facility] Bilirubin [Mass/Vol] 0.5 mg/dL 0.2 - 1.0 mg/dL [facility] Bilirubin.indirect [Mass/Vol] 0.1 mg/dL 0.0 - 0.2 mg/dL [facility] Globulin (S) [Mass/Vol] 4.1 g/dL [facility] Protein [Mass/Vol] 8.1 g/dL 6.4 - 8.2 g/dL [facility] No Panel Informationon 12-07 Interpretation and review of laboratory results [facility]normal [facility] ALL CBC WITH AUTO DIFFon BASOPHILS ABSOLUTE AUTO 0.0 [facility] Basophils/100 WBC (Bld) 0.5 % 0.2 - 2.0 % [facility] Eosinophils/100 WBC (Bld) 1.8 % 0.9 - 7.0 % [facility] Erythrocyte distribution width (RBC) [Ratio] 13.2 % 11.0 - 15.0 % [facility] Hematocrit (Bld) [Volume fraction] 42.2 % 36.0 - 48.0 % [facility] Hemoglobin (Bld) [Mass/Vol] 14.3 g/dL 12.0 - 16.0 g/dL [facility] IMMATURE GRANULOCYTES ABS AUTO 0.03 [facility] Immature granulocytes/100 WBC (Bld) 0.4 % 0.0 - 0.5 % [facility] LYMPHOCYTES ABSOLUTE AUTO 2.2 [facility] Lymphocytes/100 WBC (Bld) 26.4 % 20.5 - 60.0 % [facility] MCH (RBC) [Entitic mass] 31.6 pg 26.7 - 34.0 pg [facility] MCHC (RBC) [Mass/Vol] 33.9 g/dL 29.9 - 35.2 g/dL [facility] MCV (RBC) [Entitic vol] 93.2 fL 81.0 - 99.0 fL [facility] MONOCYTES ABSOLUTE AUTO 0.5 [facility] Monocytes/100 WBC (Bld) 6.3 % 1.7 - 12.0 % [facility] NEUTROPHILS ABSOLUTE AUTO 5.4 [facility] Neutrophils/100 WBC (Bld) 64.6 % 43.0 - 75.0 % [facility] Platelet mean volume (Bld) [Entitic vol] 10.5 fL 9.5 - 13.5 fL [facility] TBH EO # 0.2 [facility] PLT 233 [facility] RBC 4.53 [facility] WBC 8.4 [facility] BUNon 07-17-2022 Urea nitrogen [Mass/Vol] 9.0 mg/dL Normal 7.0-18.0 [facility] Comment on above: Performed By: #### C DANY, BUN #### [facility] [address] [address] [address] Marianela Villa CBC AUTO DIFFon 07-17-2022 BASO # 0.0 103/ul Normal 0.0-0.1 [facility] Comment on above: Performed By: #### C DANY, BUN #### [facility] [address] [place] [address] Dr. Marianela Villa Basophils/100 WBC (Bld) 0.1 % Critically low 0.2-2.0 [facility] Comment on above: Performed By: #### C DANY, BUN #### [facility] [address] [place] [address] Dr. Marianela Villa EO # 0.0 103/ul Normal 0.0-0.7 [facility] Comment on above: Performed By: #### C DANY, BUN #### [facility] [address] [address] [address] Marianela Villa Eosinophils/100 WBC (Bld) 0.0 % Critically low 0.9-7.0 [facility] Comment on above: Performed By: #### C DANY, BUN #### [facility] [address] [address] [address] Marianela Villa Erythrocyte distribution width (RBC) [Ratio] 14.5 % Normal 11.0-15.0 [facility] Comment on above: Performed By: #### C DANY, BUN #### [facility] [address] [place] [address] Dr. Marianela Villa Hematocrit (Bld) [Volume fraction] 29.9 % Critically low 36.0-48.0 [facility] Comment on above: Performed By: #### C DANY, BUN #### [facility] [address] [place] [address] Dr. Marianela Villa Hemoglobin (Bld) [Mass/Vol] 10.0 g/dL Critically low 12.0-16.0 [facility] Comment on above: Performed By: #### C DANY, BUN #### [facility] [address] [place] [address] Dr. Marianela Villa IG # 0.04 10e3/ul Critically high 0.00-0.03 [facility] Comment on above: Performed By: #### C DANY, BUN #### [facility] [address] [place] [address] Dr. Marianela Villa IG % 0.4 % Normal 0.0-0.5 [facility] Comment on above: Performed By: #### C DANY, BUN #### [facility] [address] [place] [address] Dr. Marianela Villa LYMPH # 1.2 103/ul Normal 1.2-3.8 [facility] Comment on above: Performed By: #### C DANY, BUN #### [facility] [address] [place] [address] Dr. Marianela Villa Lymphocytes/100 WBC (Bld) 12.1 % Critically low 20.5-60.0 [facility] Comment on above: Performed By: #### C DANY, BUN #### [facility] [address] [place] [address] Dr. Marianela Villa MANUAL DIFF REQ NO Normal [facility] Comment on above: Performed By: #### C DANY, BUN #### [facility] [address] [place] [address] Dr. Marianela Villa MCH (RBC) [Entitic mass] 31.3 pg Normal 26.7-34.0 [facility] Comment on above: Performed By: #### C DANY, BUN #### [facility] [address] [place] [address] Dr. Marianela Villa MCHC (RBC) [Mass/Vol] 33.4 g/dL Normal 29.9-35.2 [facility] Comment on above: Performed By: #### C DANY, BUN #### [facility] [address] [place] [address] Dr. Marianela Villa MCV (RBC) [Entitic vol] 93.7 fL Normal 81.0-99.0 [facility] Comment on above: Performed By: #### C DANY, BUN #### [facility] [address] [place] [address] Dr. Marianela Villa MONO # 1.0 103/ul Critically high 0.3-0.8 [facility] Comment on above: Performed By: #### C DANY, BUN #### [facility] [address] [place] [address] Dr. Marianela Villa Monocytes/100 WBC (Bld) 10.2 % Normal 1.7-12.0 [facility] Comment on above: Performed By: #### C DANY, BUN #### [facility] [address] [place] [address] Dr. Marianela Villa NEUT # 7.7 103/ul Critically high 1.4-6.5 [facility] Comment on above: Performed By: #### C DANY, BUN #### [facility] [address] [place] [address] Dr. Marianela Villa Neutrophils/100 WBC (Bld) 77.2 % Critically high 43.0-75.0 [facility] Comment on above: Performed By: #### Santos SAENZ, BUN #### [facility] [address] [place] [address] Dr. Marianela Villa Platelet mean volume (Bld) [Entitic vol] 10.9 fL Normal 9.5-13.5 [facility] Comment on above: Performed By: #### Santos SAENZ, BUN #### [facility] [address] [place] [address] Dr. Marianela Villa PLT 188 103/ul Normal 150-450 [facility] Comment on above: Performed By: #### C DANY, BUN #### [facility] [address] [place] [address] Dr. Marianela Villa RBC 3.19 106/ul Critically low 4.20-5.40 [facility] Comment on above: Performed By: #### C DANY, BUN #### [facility] [address] [place] [address] Dr. Marianela Villa WBC 10.0 103/ul Normal 4.0-11.0 [facility] Comment on above: Performed By: #### C DANY, BUN #### [facility] [address] [place] [address] Dr. Marianela Villa CREATININEon 07-17-2022 Creatinine [Mass/Vol] 0.78 mg/dL Normal 0.55-1.02 [facility] Comment on above: Performed By: #### C DANY, BUN #### [facility] [address] [place] [address] Dr. Marianela Villa EGFR-AF CITIZEN OF [place] >60 Normal >=60 [facility] Comment on above: Performed By: #### C DANY, BUN #### [facility] [address] [place] [address] Dr. Marianela Villa EGFR-NON AF CITIZEN OF [place] >60 Normal >=60 [facility] Comment on above: Performed By: #### C DANY, BUN #### [facility] [address] [place] [address] Dr. Marianela Villa PREG QUANT HCGon 07-16-2022 HCG QUANT <1 Normal [facility] Comment on above: Performed By: #### P REGQNT #### [facility] [address] [place] [address] Dr. Marianela Villa HCG RANGE SEE BELOW Normal [facility] Comment on above: Result Comment: 5-50 0.2-1 WEEK 50-500 1-2 WEEKS 100-5,000 2-3 WEEKS 500-10,000 3-4 WEEKS 1,000-50,000 4-5 WEEKS 10,000-100,000 5-6 WEEKS 15,000-200,000 6-8 WEEKS 10,000-100,000 2-3 MONTHS Performed By: #### P REGQNT #### [facility] [address] [place] [address] Dr. Marianela Villa TYPE AND SCREENon 07-13-2022 TYPE AND SCREEN Negative Normal [facility] Comment on above: Performed By: #### C DANY, BUN #### [facility] [address] [address] [address] Marianela Villa CBC AUTO DIFFon 07-01-2022 BASO # 0.0 103/ul Normal 0.0-0.1 [facility] Comment on above: Performed By: #### C BC #### [facility] [address] [place] [address] Dr. Marianela Villa Basophils/100 WBC (Bld) 0.3 % Normal 0.2-2.0 [facility] Comment on above: Performed By: #### C BC #### [facility] [address] [place] [address] Dr. Marianela Villa EO # 0.1 103/ul Normal 0.0-0.7 [facility] Comment on above: Performed By: #### C BC #### [facility] [address] [place] [address] Dr. Marianela Villa Eosinophils/100 WBC (Bld) 1.6 % Normal 0.9-7.0 [facility] Comment on above: Performed By: #### C BC #### [facility] [address] [place] [address] Dr. Marianela Villa Erythrocyte distribution width (RBC) [Ratio] 13.9 % Normal 11.0-15.0 [facility] Comment on above: Performed By: #### C BC #### [facility] [address] [place] [address] Dr. Marianela Villa Hematocrit (Bld) [Volume fraction] 37.9 % Normal 36.0-48.0 [facility] Comment on above: Performed By: #### C BC #### [facility] [address] [place] [address] Dr. Marianela Villa Hemoglobin (Bld) [Mass/Vol] 12.3 g/dL Normal 12.0-16.0 [facility] Comment on above: Performed By: #### C BC #### [facility] [address] [place] [address] Dr. Marianela Villa IG # 0.01 10e3/ul Normal 0.00-0.03 [facility] Comment on above: Performed By: #### C BC #### [facility] [address] [place] [address] Dr. Marianela Villa IG % 0.2 % Normal 0.0-0.5 [facility] Comment on above: Performed By: #### C BC #### [facility] [address] [place] [address] Dr. Marianela Villa LYMPH # 1.6 103/ul Normal 1.2-3.8 [facility] Comment on above: Performed By: #### C BC #### [facility] [address] [place] [address] Dr. Marianela Villa Lymphocytes/100 WBC (Bld) 24.6 % Normal 20.5-60.0 [facility] Comment on above: Performed By: #### C BC #### [facility] [address] [place] [address] Dr. Marianela Villa MANUAL DIFF REQ NO Normal [facility] Comment on above: Performed By: #### C BC #### [facility] [address] [place] [address] Dr. Marianela Villa MCH (RBC) [Entitic mass] 30.5 pg Normal 26.7-34.0 [facility] Comment on above: Performed By: #### C BC #### [facility] [address] [place] [address] Dr. Marianela Villa MCHC (RBC) [Mass/Vol] 32.5 g/dL Normal 29.9-35.2 [facility] Comment on above: Performed By: #### C BC #### [facility] [address] [place] [address] Dr. Marianela Villa MCV (RBC) [Entitic vol] 94.0 fL Normal 81.0-99.0 [facility] Comment on above: Performed By: #### C BC #### [facility] Laboratory [address] [place] [address] Dr. Marianela Villa MONO # 0.5 103/ul Normal 0.3-0.8 [facility] Comment on above: Performed By: #### C BC #### [facility] Laboratory [address] [place] [address] Dr. Marianela Villa Monocytes/100 WBC (Bld) 7.6 % Normal 1.7-12.0 [facility] Comment on above: Performed By: #### C BC #### [facility] Laboratory [address] [place] [address] Dr. Marianela Villa NEUT # 4.2 103/ul Normal 1.4-6.5 [facility] Comment on above: Performed By: #### C BC #### [facility] Laboratory [address] [place] [address] Dr. Marianela Villa Neutrophils/100 WBC (Bld) 65.7 % Normal 43.0-75.0 [facility] Comment on above: Performed By: #### C BC #### [facility] Laboratory [address] [place] [address] Dr. Marianela Villa Platelet mean volume (Bld) [Entitic vol] 11.0 fL Normal 9.5-13.5 [facility] Comment on above: Performed By: #### C BC #### [facility] Laboratory [address] [place] [address] Dr. Marianela Villa PLT 251 103/ul Normal 150-450 [facility] Comment on above: Performed By: #### C BC #### [facility] Laboratory [address] [place] [address] Dr. Marianela Villa RBC 4.03 106/ul Critically low 4.20-5.40 [facility] Comment on above: Performed By: #### C BC #### [facility] Laboratory [address] [place] [address] Dr. Marianela Villa WBC 6.4 103/ul Normal 4.0-11.0 [facility] Comment on above: Performed By: #### C BC #### [facility] Laboratory [address] [place] [address] Dr. Marianela Villa LIVER PROFILEon 07-01-2022 Albumin [Mass/Vol] 3.7 g/dL Normal 3.4-5.0 [facility] Comment on above: Performed By: #### B MP, LIVER #### [facility] Laboratory [address] [place] [address] Dr. Marianela Villa Albumin/Globulin [Mass ratio] 1.0 {ratio} Normal [facility] Comment on above: Performed By: #### B MP, LIVER #### [facility] Laboratory [address] [place] [address] Dr. Marianela Villa ALP [Catalytic activity/Vol] 96 U/L Normal 46-116 [facility] Comment on above: Performed By: #### B MP, LIVER #### [facility] Laboratory [address] [place] [address] Dr. Marianela Villa ALT [Catalytic activity/Vol] 25 U/L Normal 14-59 [facility] Comment on above: Performed By: #### B MP, LIVER #### [facility] Laboratory [address] [place] [address] Dr. Marianela Villa AST [Catalytic activity/Vol] 16 U/L Normal 15-37 [facility] Comment on above: Performed By: #### B MP, LIVER #### [facility] Laboratory [address] [place] [address] Dr. Marianela Villa BILI, CONJUGATED 0.0 mg/dL Normal 0.0-0.2 [facility] Comment on above: Performed By: #### B MP, LIVER #### [facility] Laboratory [address] [place] [address] Dr. Marianela Villa Bilirubin [Mass/Vol] 0.2 mg/dL Normal 0.2-1.0 [facility] Comment on above: Performed By: #### B MP, LIVER #### [facility] Laboratory [address] [place] [address] Dr. Marianela Villa Globulin (S) [Mass/Vol] 3.7 g/dL Normal [facility] Comment on above: Performed By: #### B MP, LIVER #### [facility] Laboratory [address] [place] [address] Dr. Marianela Villa Protein [Mass/Vol] 7.4 g/dL Normal 6.4-8.2 [facility] Comment on above: Performed By: #### B MP, LIVER #### [facility] Laboratory [address] [place] [address] Dr. Marianela Villa PROF CHEM 8 (BAS METB)on Anion gap [Moles/Vol] 13.2 mmol/L Normal [facility] Comment on above: Performed By: #### B MP, LIVER #### [facility] Laboratory [address] [place] [address] Dr. Marianela Villa Calcium [Mass/Vol] 9.2 mg/dL Normal 8.5-10.1 [facility] Comment on above: Performed By: #### B MP, LIVER #### [facility] Laboratory [address] [place] [address] Dr. Marianela Villa Chloride [Moles/Vol] 103 mmol/L Normal 98-107 [facility] Comment on above: Performed By: #### B MP, LIVER #### [facility] Laboratory [address] [place] [address] Dr. Marianela Villa CO2 [Moles/Vol] 28.0 mmol/L Normal 21.0-32.0 [facility] Comment on above: Performed By: #### B MP, LIVER #### [facility] Laboratory [address] [place] [address] Dr. Marianela Villa Creatinine [Mass/Vol] 0.75 mg/dL Normal 0.55-1.02 [facility] Comment on above: Performed By: #### B MP, LIVER #### [facility] Laboratory [address] [place] [address] Dr. Marianela Villa EGFR-AF CITIZEN OF [place] >60 Normal >=60 [facility] Comment on above: Performed By: #### B MP, LIVER #### [facility] [address] [place] [address] Dr. Marianela Villa EGFR-NON AF CITIZEN OF [place] >60 Normal >=60 [facility] Comment on above: Performed By: #### B MP, LIVER #### [facility] [address] [place] [address] Dr. Marianela Villa Glucose [Mass/Vol] 86 mg/dL Normal 74-106 [facility] Comment on above: Performed By: #### B MP, LIVER #### [facility] Laboratory [address] [place] [address] Dr. Marianela Villa Potassium [Moles/Vol] 4.2 mmol/L Normal 3.5-5.1 [facility] Comment on above: Performed By: #### B MP, LIVER #### [facility] [address] [place] [address] Dr. Marianela Villa Sodium [Moles/Vol] 140 mmol/L Normal 136-145 [facility] Comment on above: Performed By: #### B MP, LIVER #### [facility] [address] [place] [address] Dr. Marianela Villa Urea nitrogen [Mass/Vol] 8.0 mg/dL Normal 7.0-18.0 [facility] Comment on above: Performed By: #### B MP, LIVER #### [facility] [address] [place] [address] Dr. Marianela Villa Urea nitrogen/Creatinin e [Mass ratio] 10.7 mg/mg Normal [facility] Comment on above: Performed By: #### B MP, LIVER #### [facility] Laboratory [address] [place] [address] Dr. Marianela Villa PROTIMEon 07-01-2022 INR Coag (PPP) [Relative time] 1.00 {INR} Normal [facility] Comment on above: Performed By: #### C DANY, BUN #### [facility] Laboratory [address] [place] [address] Dr. Marianela Villa INR GUIDELINES SEE BELOW Normal [facility] Comment on above: Result Comment: MCKENNA RED INR: 2.0 - 3.0 CONDITIONS NOT LISTED BELOW 2.5 - 3.5 FOR PROSTHETIC HEART VALVE REPLACEMENT 2.5 - 3.5 RECURRENT THROMBOSIS Performed By: #### C DANY, BUN #### [facility] [address] [place] [address] Dr. Marianela Villa PT Coag (PPP) [Time] 10.6 s Normal 9.0-11.6 [facility] Comment on above: Performed By: #### C DANY, BUN #### [facility] [address] [place] [address] Dr. Marianela Villa PTTon 07-01-2022 aPTT Coag (Bld) [Time] 25.0 s Normal 22.3-36.2 [facility] Comment on above: Performed By: #### C DANY, BUN #### [facility] Laboratory [address] [place] [address] Dr. Marianela Villa CBC AUTO DIFFon 05-05-2022 BASO # 0.0 103/ul Normal 0.0-0.1 [facility] Comment on above: Performed By: #### P REG #### [facility] Laboratory [address] [place] [address] Dr. Marianela Villa Basophils/100 WBC (Bld) 0.4 % Normal 0.2-2.0 [facility] Comment on above: Performed By: #### P REG #### [facility] Laboratory [address] [place] [address] Dr. Marianela Villa EO # 0.1 103/ul Normal 0.0-0.7 [facility] Comment on above: Performed By: #### P REG #### [facility] Laboratory [address] [place] [address] Dr. Marianela Villa Eosinophils/100 WBC (Bld) 0.9 % Normal 0.9-7.0 [facility] Comment on above: Performed By: #### P REG #### [facility] Laboratory [address] [place] [address] Dr. Marianela Villa Erythrocyte distribution width (RBC) [Ratio] 16.8 % Critically high 11.0-15.0 [facility] Comment on above: Performed By: #### P REG #### [facility] [address] [place] [address] Dr. Marianela Villa Hematocrit (Bld) [Volume fraction] 40.8 % Normal 36.0-48.0 [facility] Comment on above: Performed By: #### P REG #### [facility] [address] [place] [address] Dr. Marianela Villa Hemoglobin (Bld) [Mass/Vol] 13.0 g/dL Normal 12.0-16.0 [facility] Comment on above: Performed By: #### P REG #### [facility] [address] [place] [address] Dr. Marianela Vilal IG # 0.02 10e3/ul Normal 0.00-0.03 [facility] Comment on above: Performed By: #### P REG #### [facility] [address] [place] [address] Dr. Marianela Villa IG % 0.3 % Normal 0.0-0.5 [facility] Comment on above: Performed By: #### P REG #### [facility] [address] [place] [address] Dr. Marianela Villa LYMPH # 1.6 103/ul Normal 1.2-3.8 [facility] Comment on above: Performed By: #### P REG #### [facility] [address] [place] [address] Dr. Marianela Villa Lymphocytes/100 WBC (Bld) 24.1 % Normal 20.5-60.0 [facility] Comment on above: Performed By: #### P REG #### [facility] [address] [place] [address] Dr. Marianela Villa MANUAL DIFF REQ NO Normal [facility] Comment on above: Performed By: #### P REG #### [facility] [address] [place] [address] Dr. Marianela Villa MCH (RBC) [Entitic mass] 30.3 pg Normal 26.7-34.0 [facility] Comment on above: Performed By: #### P REG #### [facility] [address] [place] [address] Dr. Marianela Villa MCHC (RBC) [Mass/Vol] 31.9 g/dL Normal 29.9-35.2 [facility] Comment on above: Performed By: #### P REG #### [facility] [address] [place] [address] Dr. Marianela Villa MCV (RBC) [Entitic vol] 95.1 fL Normal 81.0-99.0 [facility] Comment on above: Performed By: #### P REG #### [facility] [address] [place] [address] Dr. Marianela Villa MONO # 0.5 103/ul Normal 0.3-0.8 [facility] Comment on above: Performed By: #### P REG #### [facility] [address] [place] [address] Dr. Marianela Villa Monocytes/100 WBC (Bld) 7.6 % Normal 1.7-12.0 [facility] Comment on above: Performed By: #### P REG #### [facility] [address] [place] [address] Dr. Marianela Villa NEUT # 4.5 103/ul Normal 1.4-6.5 [facility] Comment on above: Performed By: #### P REG #### [facility] [address] [place] [address] Dr. Marianela Villa Neutrophils/100 WBC (Bld) 66.7 % Normal 43.0-75.0 [facility] Comment on above: Performed By: #### P REG #### [facility] [address] [place] [address] Dr. Marianela Villa Platelet mean volume (Bld) [Entitic vol] 10.0 fL Normal 9.5-13.5 [facility] Comment on above: Performed By: #### P REG #### [facility] [address] [place] [address] Dr. Marianela Villa PLT 253 103/ul Normal 150-450 [facility] Comment on above: Performed By: #### P REG #### [facility] [address] [place] [address] Dr. Marianela Villa RBC 4.29 106/ul Normal 4.20-5.40 [facility] Comment on above: Performed By: #### P REG #### [facility] [address] [place] [address] Dr. Marianela Villa WBC 6.8 103/ul Normal 4.0-11.0 [facility] Comment on above: Performed By: #### P REG #### [facility] Laboratory [address] [place] [address] Dr. Marianela Villa FERRITINon 05-05-2022 Ferritin [Mass/Vol] 21.0 ng/mL Normal 6.2-137.0 [facility] Comment on above: Performed By: #### P REG #### [facility] Laboratory [address] [place], [place] [address] Dr. Marianela Villa IRONon 05-05-2022 Iron [Mass/Vol] 128.0 ug/dL Normal 50.0-170.0 [facility] Comment on above: Performed By: #### P REG #### [facility] [address] [place], [place] [address] Dr. Marianela Villa US VAC ASST BX BREAST RT W C LIPon 04-29-2022 US VAC ASST BX BREAST RT W CLIP Begin Addendum #1 COLLECTED DATE/TIME: 04/26/2022, 11:20 EST Final Diagnosis Report for [facility] [place] [place] RIGHT BREAST 1 O'CLOCK MASS; BIOPSY: [...] after pathology results are available. Normal [facility] MAMMO POST BIOPSY RIGHTon MAMMO POST BIOPSY RIGHT Patient: EMILY COLBERT Exam Date: 04/26/2022 : 1985 Gender:F Ordering : YANG REDMOND CNP Admission #: [id number] Family : Order #: [id number] CLICK HERE TO VIEW EXAM RADIOLOGY REPORT PROCEDURE: MAMMOGRAM POST BIOPSY IMAGES COMPARISON: US BREAST RIGHT LIMITED, 04/16/2022. INDICATIONS: Lump in right breast BREAST COMPOSITION: FINDINGS: BIOPSY MARKER: A metallic marker has been placed in the targeted location within the upper inner quadrant of the right breast. BREAST FINDINGS: Expected post biopsy findings. RECOMMENDATIONS: Dictated by: Ceferino Dorantes M.D. on 04/26/2022 at 13:54 Approved by: Ceferino Dorantes M.D. on 04/26/2022 at 13:55 Normal [facility] MG MAMM DIAGNOSTIC 3D SERVANDO CA Don 04-16-2022 MG MAMM DIAGNOSTIC 3D SERVANDO CAD Patient: EMILY COLBERT Exam Date: 04/16/2022 : 1985 Gender:F Ordering : YANG LINDACrispin [facility] Admission #: [id number] Family : Order #: [id number] CLICK HERE TO VIEW EXAM RADIOLOGY REPORT [...] leukemia cancer at age 1. LOCATION: [facility] BREAST COMPOSITION: Scattered areas fibroglandular [...] PALPABLE LUMP SHOULD BE BIOPSIED. Dictated by: Ceferino Dorantes M.D. on 04/16/2022 at 13:34 Approved by: Ceferino Dorantes M.D. on 04/16/2022 at 13:39 Normal [facility] US BREAST RIGHT LIMITEDon US BREAST RIGHT LIMITED Patient: EMILY COLBERT Exam Date: 04/16/2022 : 1985 Gender:F Ordering : YANG LINDA [facility] Admission #: [id number] Family : Order #: [id number] CLICK HERE TO VIEW EXAM RADIOLOGY REPORT [...] leukemia cancer at age 1. LOCATION: [facility] BREAST COMPOSITION: Scattered areas fibroglandular [...] PALPABLE LUMP SHOULD BE BIOPSIED. Dictated by: Ceferino Dorantes M.D. on 04/16/2022 at 13:34 Approved by: Ceferino Dorantes M.D. on 04/16/2022 at 13:39 Normal [facility] US PELVIS AND TRANSVAGon US PELVIS AND [...] KIANA CHURCH Date: 2022-04-16 10:01 Normal [facility] General Surgery Office/Clini c Noteon [...] (COVID-19) mRNA-1273 vaccine 07/19/2020 Recorded 2022-03-03: TPVALL [facility] Comment on above: Result Comment: Elec tronically Signed By: BENITA GUTIERREZ, Halley Smith\Date and Time Signed: 04/14/22 16:29 EST Reminderson 04-14-2022 Reminders - From: Rain Alcantar LPN To: GSN - Clinical; Sent: 04/14/2022 15:37:22 EST Show up: 03/07/2032 07:00:00 EST Subject: colonoscopy recall Due Date/Time: 04/07/2032 07:00:00 EST Reminder/Recall Patient is due for screening colonoscopy 04/07/2032. Normal [facility] Outside Colonoscopyon 2022 Outside Colonoscopy [id number]#1.00CD:127 [facility] Pathology Noteon 04-09-2022 Pathology Note [id number]#1.00CD:127 [facility] PREG HCG QUALon 04-07-2022 , QUAL Negative Normal NEGATIVE [facility] Comment on above: Performed By: #### C BC #### [facility] Laboratory [address] [place] [address] Dr. Marianela Villa Lab Reportson 04-01-2022 Lab Reports [id number]#1.00CD:127 Normal [facility] Covid-19 PCR (CVDTBH)on 03-05 SARS-CoV-2 (COVID-19) RNA TERA+probe Ql (Unsp spec) Not detected Normal NOT DETECTED [facility] Comment on above: Result Comment: This test is not yet approved or cleared by the [place] FDA. When there are no FDA-approved or cleared tests available, and other criteria are met, FDA can make tests available under an emergency access mechanism called an Emergency Use Authorization (EUA). The EUA for this test is supported by the Business Reporting Developer of Health and Human Service's (HHS's) declaration [...] SARS-CoV-2. Performed By: #### P REG #### [facility] Laboratory [address] [place] [address] Dr. Marianela Villa PAP ACOG PANEL 2: 30 to 65on 03-21-2022 . . Normal [facility] Comment on above: Result Comment: Perf ormed at: WB Performed By: #### [id number] #### [facility] Laboratory [address] [place] [address] Dr. Marianela Villa Age Gdln ACOG Testing 30-65 Normal [facility] Comment on above: Performed By: #### [id number] #### [facility] [address] [place] [address] Dr. Marianela Villa DIAGNOSIS: Comment [facility] Comment on above: Result Comment: NEGA TIVE FOR INTRAEPITHELIAL LESION OR MALIGNANCY. Performed at: WB Performed By: #### [id number] #### [facility] [address] [place] [address] Dr. Marianela Villa HPV Aptima Negative Normal Negative [facility] Comment on above: Result Comment: This nucleic acid amplification test detects fourteen high-risk HPV types (16,18,31,33,35,39,45,51,52,56,58,59,66,68) without differentiation. Performed at: =G Performed By: #### 4 [id number] #### [facility] [address] [place] [address] Dr. Marianela Villa HPV Genotype Reflex Comment Normal [facility] Comment on above: Result Comment: Crit eria not met, HPV Genotype not performed. Performed at: WB Performed By: #### [id number] #### [facility] [address] [place] [address] Dr. Marianela Villa Methodology: Comment Normal [facility] Comment on above: Result Comment: This liquid based ThinPrep(R) pap test was screened with the use of an image guided system. Performed at: WB Performed By: #### [id number] #### [facility] [address] [place] [address] Dr. Marianela Villa Note: Comment Normal [facility] Comment on above: Result Comment: The Pap smear is a screening test designed to aid in the detection of premalignant and malignant conditions of the uterine cervix. It is not a diagnostic procedure and should not be used as the sole means of detecting cervical cancer. Both false-positive and false-negative reports do occur. . Performed at: WB Performed By: #### [id number] #### [facility] [address] [place] [address] Dr. Marianela Villa Performed by: Comment Normal [facility] Comment on above: Result Comment: Nancy Leslie, Home Economist Consumer Service (ASCP) Performed at: WB Performed By: #### [id number] #### [facility] [address] [place] [address] Dr. Marianela Villa Specimen adequacy: Comment Normal [facility] Comment on above: Result Comment: Sati sfactory for evaluation. No endocervical component is identified. Performed at: WB Performed By: #### [id number] #### [facility] [address] [place] [address] Dr. Marianela Villa Pre-Certification Formon Pre-Certification Form [id number]#1.00CD:127 Normal [facility] Facesheeton 03-09-2022 Facesheet [id number]#1.00CD:127 Normal [facility] Patient Correspondenceon Patient Correspondence [id number]:127 Normal [facility] Consent for Procedure/Surger yon 03-08-2022 Consent for Procedure/Surgery [id number]:127 Normal [facility] CBC AUTO DIFFon 03-01-2022 BASO # 0.0 103/ul Normal 0.0-0.1 [facility] Comment on above: Performed By: #### C BC #### [facility] [address] [place] [address] Dr. Marianela Villa Basophils/100 WBC (Bld) 0.5 % Normal 0.2-2.0 [facility] Comment on above: Performed By: #### C BC #### [facility] [address] [place] [address] Dr. Marianela Villa EO # 0.1 103/ul Normal 0.0-0.7 [facility] Comment on above: Performed By: #### C BC #### [facility] [address] [place] [address] Dr. Marianela Villa Eosinophils/100 WBC (Bld) 1.3 % Normal 0.9-7.0 [facility] Comment on above: Performed By: #### C BC #### [facility] [address] [place] [address] Dr. Marianela Villa Erythrocyte distribution width (RBC) [Ratio] 25.9 % Critically high 11.0-15.0 [facility] Comment on above: Performed By: #### C BC #### [facility] [address] [place] [address] Dr. Marianela Villa Hematocrit (Bld) [Volume fraction] 36.4 % Normal 36.0-48.0 [facility] Comment on above: Performed By: #### C BC #### [facility] [address] [place] [address] Dr. Marianela Villa Hemoglobin (Bld) [Mass/Vol] 11.5 g/dL Critically low 12.0-16.0 [facility] Comment on above: Performed By: #### C BC #### [facility] [address] [place] [address] Dr. Marianela Villa IG # 0.01 10e3/ul Normal 0.00-0.03 [facility] Comment on above: Performed By: #### C BC #### [facility] [address] [place] [address] Dr. Marianela Villa IG % 0.2 % Normal 0.0-0.5 [facility] Comment on above: Performed By: #### C BC #### [facility] [address] [place] [address] Dr. Marianela Villa LYMPH # 1.7 103/ul Normal 1.2-3.8 [facility] [place] Comment on above: Performed By: #### C BC #### [facility] [address] [place] [address] Dr. Marianela Villa Lymphocytes/100 WBC (Bld) 31.4 % Normal 20.5-60.0 [facility] [place] Comment on above: Performed By: #### C BC #### [facility] [address] [place] [address] Dr. Marianela Villa MANUAL DIFF REQ NO Normal [facility] Comment on above: Performed By: #### C BC #### [facility] [address] [place] [address] Dr. Marianela Villa MCH (RBC) [Entitic mass] 26.6 pg Critically low 26.7-34.0 [facility] [place] Comment on above: Performed By: #### C BC #### [facility] [address] [place] [address] Dr. Marianela Villa MCHC (RBC) [Mass/Vol] 31.6 g/dL Normal 29.9-35.2 [facility] Comment on above: Performed By: #### C BC #### [facility] [address] [place] [address] Dr. Marianela Villa MCV (RBC) [Entitic vol] 84.1 fL Normal 81.0-99.0 [facility] Comment on above: Performed By: #### C BC #### [facility] [address] [place] [address] Dr. Marianela Villa MONO # 0.4 103/ul Normal 0.3-0.8 [facility] Comment on above: Performed By: #### C BC #### [facility] [address] [place] [address] Dr. Marianela Villa Monocytes/100 WBC (Bld) 7.6 % Normal 1.7-12.0 [facility] Comment on above: Performed By: #### C BC #### [facility] [address] [place] [address] Dr. Marianela Villa NEUT # 3.3 103/ul Normal 1.4-6.5 [facility] [place] Comment on above: Performed By: #### C BC #### [facility] [address] [place] [address] Dr. Marianela Villa Neutrophils/100 WBC (Bld) 59.0 % Normal 43.0-75.0 [facility] Comment on above: Performed By: #### C BC #### [facility] [address] [place] [address] Dr. Marianela Villa Platelet mean volume (Bld) [Entitic vol] 11.2 fL Normal 9.5-13.5 [facility] Comment on above: Performed By: #### C BC #### [facility] [address] [place] [address] Dr. Marianela Villa PLT 297 103/ul Normal 150-450 [facility] Comment on above: Performed By: #### C BC #### [facility] [address] [place] [address] Dr. Marianela Villa RBC 4.33 106/ul Normal 4.20-5.40 [facility] Comment on above: Performed By: #### C BC #### [facility] [address] [place] [address] Dr. Marianela Villa WBC 5.5 103/ul Normal 4.0-11.0 [facility] [place] Comment on above: Performed By: #### C BC #### [facility] [address] [place] [address] Dr. Marianela Villa CBC AUTO DIFFon 02-18-2022 BASO # 0.0 103/ul Normal 0.0-0.1 [facility] [place] Comment on above: Performed By: #### P REG #### [facility] [address] [place] [address] Dr. Marianela Villa Basophils/100 WBC (Bld) 0.3 % Normal 0.2-2.0 [facility] [place] Comment on above: Performed By: #### P REG #### [facility] [address] [place] [address] Dr. Marianela Villa EO # 0.1 103/ul Normal 0.0-0.7 [facility] [place] Comment on above: Performed By: #### P REG #### [facility] [address] [place] [address] Dr. Marianela Villa Eosinophils/100 WBC (Bld) 1.0 % Normal 0.9-7.0 [facility] [place] Comment on above: Performed By: #### P REG #### [facility] [address] [place] [address] Dr. Marianela Villa Erythrocyte distribution width (RBC) [Ratio] 25.0 % Critically high 11.0-15.0 [facility] [place] Comment on above: Performed By: #### P REG #### [facility] [address] [place] [address] Dr. Marianela Villa Hematocrit (Bld) [Volume fraction] 34.9 % Critically low 36.0-48.0 [facility] [place] Comment on above: Performed By: #### P REG #### [facility] [address] [place] [address] Dr. Marianela Villa Hemoglobin (Bld) [Mass/Vol] 10.6 g/dL Critically low 12.0-16.0 [facility] [place] Comment on above: Performed By: #### P REG #### [facility] [address] [place] [address] Dr. Marianela Villa IG # 0.02 10e3/ul Normal 0.00-0.03 [facility] [place] Comment on above: Performed By: #### P REG #### [facility] [address] [place] [address] Dr. Marianela Villa IG % 0.3 % Normal 0.0-0.5 [facility] [place] Comment on above: Performed By: #### P REG #### [facility] [address] [place] [address] Dr. Marianela Villa LYMPH # 1.8 103/ul Normal 1.2-3.8 [facility] [place] Comment on above: Performed By: #### P REG #### [facility] [address] [place] [address] Dr. Marianela Villa Lymphocytes/100 WBC (Bld) 26.0 % Normal 20.5-60.0 [facility] [place] Comment on above: Performed By: #### P REG #### [facility] [address] [place] [address] Dr. Marianela Villa MANUAL DIFF REQ NO Normal [facility] Comment on above: Performed By: #### P REG #### [facility] [address] [place] [address] Dr. Marianela Villa MCH (RBC) [Entitic mass] 24.9 pg Critically low 26.7-34.0 [facility] Comment on above: Performed By: #### P REG #### [facility] [address] [place] [address] Dr. Marianela Villa MCHC (RBC) [Mass/Vol] 30.4 g/dL Normal 29.9-35.2 [facility] Comment on above: Performed By: #### P REG #### [facility] [address] [place] [address] Dr. Marianela Villa MCV (RBC) [Entitic vol] 81.9 fL Normal 81.0-99.0 [facility] [place] Comment on above: Performed By: #### P REG #### [facility] [address] [place] [address] Dr. Marianela Villa MONO # 0.4 103/ul Normal 0.3-0.8 [facility] Comment on above: Performed By: #### P REG #### [facility] [address] [place] [address] Dr. Marianela Villa Monocytes/100 WBC (Bld) 5.5 % Normal 1.7-12.0 [facility] Comment on above: Performed By: #### P REG #### [facility] [address] [place] [address] Dr. Marianela Villa NEUT # 4.5 103/ul Normal 1.4-6.5 [facility] [place] Comment on above: Performed By: #### P REG #### [facility] [address] [place] [address] Dr. Marianela Villa Neutrophils/100 WBC (Bld) 66.9 % Normal 43.0-75.0 [facility] [place] Comment on above: Performed By: #### P REG #### [facility] [address] [place] [address] Dr. Marianela Villa Platelet mean volume (Bld) [Entitic vol] 11.1 fL Normal 9.5-13.5 [facility] Comment on above: Performed By: #### P REG #### [facility] [address] [place] [address] Dr. Marianela Villa PLT 198 103/ul Normal 150-450 [facility] Comment on above: Performed By: #### P REG #### [facility] [address] [place] [address] Dr. Marianela Villa RBC 4.26 106/ul Normal 4.20-5.40 [facility] Comment on above: Performed By: #### P REG #### [facility] [address] [place] [address] Dr. Marianela Villa WBC 6.8 103/ul Normal 4.0-11.0 [facility] Comment on above: Performed By: #### P REG #### [facility] [address] [place] [address] Dr. Marianela Villa IRONon 02-18-2022 Iron [Mass/Vol] 57.0 ug/dL Normal 50.0-170.0 [facility] Comment on above: Performed By: #### C DANY, BUN #### [facility] [address] [place] [address] Dr. Marianela Villa OCC BLD IMMUNO SCREENon OCCULT BLOOD Negative Normal NEGATIVE [facility] [place] Comment on above: Performed By: #### O BSCRN #### [facility] [address] [place] [address] Dr. Marianela Villa Physician Referralon 022 Physician Referral [id number] Normal [facility] CBC AUTO DIFFon 02-02-2022 BASO # 0.0 103/ul Normal 0.0-0.1 [facility] [place] Comment on above: Performed By: #### C BC #### [facility] [address] [place] [address] Dr. Marianela Villa Basophils/100 WBC (Bld) 0.4 % Normal 0.2-2.0 [facility] [place] Comment on above: Performed By: #### C BC #### [facility] [address] [place] [address] Dr. Marianela Villa EO # 0.1 103/ul Normal 0.0-0.7 [facility] [place] Comment on above: Performed By: #### C BC #### [facility] [address] [place] [address] Dr. Marianela Villa Eosinophils/100 WBC (Bld) 1.3 % Normal 0.9-7.0 [facility] [place] Comment on above: Performed By: #### C BC #### [facility] [address] [place] [address] Dr. Marianela Villa Erythrocyte distribution width (RBC) [Ratio] 17.7 % Critically high 11.0-15.0 [facility] [place] Comment on above: Performed By: #### C BC #### [facility] [address] [place] [address] Dr. Marianela Villa Hematocrit (Bld) [Volume fraction] 30.3 % Critically low 36.0-48.0 [facility] [place] Comment on above: Performed By: #### C BC #### [facility] [address] [place] [address] Dr. Marianela Villa Hemoglobin (Bld) [Mass/Vol] 9.1 g/dL Critically low 12.0-16.0 [facility] [place] Comment on above: Performed By: #### C BC #### [facility] [address] [place] [address] Dr. Marianela Villa IG # 0.01 10e3/ul Normal 0.00-0.03 [facility] [place] Comment on above: Performed By: #### C BC #### [facility] [address] [place] [address] Dr. Marianela Villa IG % 0.1 % Normal 0.0-0.5 [facility] [place] Comment on above: Performed By: #### C BC #### [facility] [address] [place] [address] Dr. Marianela Villa LYMPH # 1.9 103/ul Normal 1.2-3.8 [facility] [place] Comment on above: Performed By: #### C BC #### [facility] [address] [place] [address] Dr. Marianela Villa Lymphocytes/100 WBC (Bld) 28.6 % Normal 20.5-60.0 [facility] [place] Comment on above: Performed By: #### C BC #### [facility] [address] [place] [address] Dr. Marianela Villa MANUAL DIFF REQ NO Normal [facility] Comment on above: Performed By: #### C BC #### [facility] [address] [place] [address] Dr. Marianela Villa MCH (RBC) [Entitic mass] 23.3 pg Critically low 26.7-34.0 [facility] [place] Comment on above: Performed By: #### C BC #### [facility] [address] [address] [address] Marianela Villa MCHC (RBC) [Mass/Vol] 30.0 g/dL Normal 29.9-35.2 [facility] [place] Comment on above: Performed By: #### C BC #### [facility] [address] [place] [address] Dr. Marianela Villa MCV (RBC) [Entitic vol] 77.5 fL Critically low 81.0-99.0 [facility] [place] Comment on above: Performed By: #### C BC #### [facility] [address] [place] [address] Dr. Marianela Villa MONO # 0.5 103/ul Normal 0.3-0.8 [facility] [place] Comment on above: Performed By: #### C BC #### [facility] [address] [place] [address] Dr. Marianela Villa Monocytes/100 WBC (Bld) 6.7 % Normal 1.7-12.0 [facility] [place] Comment on above: Performed By: #### C BC #### [facility] [address] [place] [address] Dr. Marianela Villa NEUT # 4.2 103/ul Normal 1.4-6.5 [facility] [place] Comment on above: Performed By: #### C BC #### [facility] [address] [place] [address] Dr. Marianela Villa Neutrophils/100 WBC (Bld) 62.9 % Normal 43.0-75.0 [facility] Comment on above: Performed By: #### C BC #### [facility] [address] [place] [address] Dr. Marianela Villa Platelet mean volume (Bld) [Entitic vol] 11.0 fL Normal 9.5-13.5 [facility] Comment on above: Performed By: #### C BC #### [facility] [address] [place] [address] Dr. Marianela Villa PLT 284 103/ul Normal 150-450 [facility] Comment on above: Performed By: #### C BC #### [facility] [address] [address] [address] Marianela Villa RBC 3.91 106/ul Critically low 4.20-5.40 [facility] Comment on above: Performed By: #### C BC #### [facility] [address] [address] [address] Marianela Villa WBC 6.7 103/ul Normal 4.0-11.0 [facility] [place] Comment on above: Performed By: #### C BC #### [facility] [address] [place] [address] Dr. Marianela Villa CRPon 02-02-2022 CRP [Mass/Vol] mg/L Normal <=1.0 [facility] Comment on above: Performed By: #### C DANY BUN #### [facility] [address] [place] [address] Dr. Marianela Villa FREE T3on 02-02-2022 FREE T3 2.06 pg/mlL Critically low 2.18-3.98 [facility] Comment on above: Performed By: #### C DANY BUN #### [facility] [address] [place] [address] Dr. Marianela Villa FREE T4on 02-02-2022 Free T4 [Mass/Vol] 0.89 ng/dL Normal 0.76-1.46 [facility] Comment on above: Performed By: #### P REG #### [facility] [address] [place] [address] Dr. Marianela Villa GLYCOHEMOGLOBIN A1Con 2021 ADA RECOMMENDATION SEE BELOW Normal [facility] Comment on above: Result Comment: ADA RECOMMENDED LIMIT 4.0 - 6.0 ADA THERAPEUTIC TARGET < 7.0 ACTION SUGGESTED > 7.0 Performed By: #### C DANY BUN #### [facility] [address] [place] [address] Dr. Marianela Villa Glucose [Mass/Vol] 131 mg/dL Normal [facility] Comment on above: Performed By: #### C DANY BUN #### [facility] [address] [place] [address] Dr. Marianela Villa HbA1c (Bld) [Mass fraction] 6.2 % Normal 4.5-6.2 [facility] [place] Comment on above: Performed By: #### C DANY BUN #### [facility] [address] [address] [address] Marianela Villa IRONon 02-02-2022 Iron [Mass/Vol] 15.0 ug/dL Critically low 50.0-170.0 [facility] Comment on above: Performed By: #### P REG #### [facility] [address] [address] [address] Marianela Villa LIPID PROFILEon 02-02-2022 CHOL-HDL RATIO NORM SEE BELOW Normal [facility] [place] Comment on above: Result Comment: 3.3 - 4.4 LOW RISK 4.4 - 7.1 AVERAGE RISK 7.1 - 11.0 MODERATE RISK >11.0 HIGH RISK Performed By: #### C DANY BUN #### [facility] [address] [address] [address] Marianela Villa Cholesterol [Mass/Vol] 187 mg/dL Normal <=200 [facility] [place] Comment on above: Performed By: #### C DAYN BUN #### [facility] [address] [address] [address] Marianela Villa Cholesterol in HDL [Mass/Vol] 56 mg/dL Normal 40-60 [facility] [place] Comment on above: Performed By: #### Santos SAENZ BUN #### [facility] [address] [address] [address] Marianela Villa Cholesterol in LDL [Mass/Vol] 114.6 mg/dL Normal [facility] [place] Comment on above: Performed By: #### C DANY, BUN #### [facility] [address] [address] [address] Marianela Villa Cholesterol.total/ Cholesterol in HDL [Mass ratio] 3.3 {ratio} Normal [facility] [place] Comment on above: Performed By: #### C DANY, BUN #### [facility] [address] [address] [address] Marianela Villa HDL NORMAL > or = 60 mg/dl - LO W CARDIOVASCULAR RISK <40 mg/dl - HIGH CARDIOVASCULAR RISK Normal [facility] [place] Comment on above: Performed By: #### C DANY, BUN #### [facility] [address] [address] [address] Marianela Villa LDL CALC NORMAL SEE BELOW Normal [facility] Comment on above: Result Comment: <100 mg/dl OPTIMAL 100 - 129 mg/dl NEAR OR ABOVE OPTIMAL 130 - 159 mg/dl BORDERLINE HIGH 160 - 189 mg/dl HIGH >190 mg/dl VERY HIGH Performed By: #### C DANY, BUN #### [facility] [address] [address] [address] Marianela Villa Triglyceride [Mass/Vol] 82 mg/dL Normal <=150 [facility] [place] Comment on above: Performed By: #### C DANY, BUN #### [facility] [address] [address] [address] Marianela Villa VLDL CALC 16.4 mg/dL Normal [facility] [place] Comment on above: Performed By: #### C DANY, BUN #### [facility] [address] [address] [address] Marianela Villa MAGNESIUMon 02-02-2022 Magnesium [Mass/Vol] 2.0 mg/dL Normal 1.8-2.4 [facility] [place] Comment on above: Performed By: #### C DANY, BUN #### [facility] [address] [address] [address] Marianela Villa PREG HCG QUALon 02-02-2022 , QUAL Negative Normal NEGATIVE [facility] Comment on above: Performed By: #### P REG #### [facility] [address] [address] [address] Marianela Villa PROF 14(COMP METB)on 022 Albumin [Mass/Vol] 4.0 g/dL Normal 3.4-5.0 [facility] Comment on above: Performed By: #### C DANY, BUN #### [facility] [address] [place] [address] Dr. Marianela Villa Albumin/Globulin [Mass ratio] 1.0 {ratio} Normal [facility] Comment on above: Performed By: #### C DANY, BUN #### [facility] [address] [address] [address] Marianela Villa ALP [Catalytic activity/Vol] 173 U/L Critically high 46-116 [facility] [place] Comment on above: Performed By: #### C DANY, BUN #### [facility] [address] [address] [address] Marianela Villa ALT [Catalytic activity/Vol] 45 U/L Normal 14-59 [facility] [place] Comment on above: Performed By: #### C DANY, BUN #### [facility] [address] [address] [address] Marianela Villa Anion gap [Moles/Vol] 12.9 mmol/L Normal [facility] [place] Comment on above: Performed By: #### C DANY, BUN #### [facility] [address] [address] [address] Marianela Villa AST [Catalytic activity/Vol] 35 U/L Normal 15-37 [facility] [place] Comment on above: Performed By: #### C DANY, BUN #### [facility] [address] [address] [address] Marianela Villa Bilirubin [Mass/Vol] 0.3 mg/dL Normal 0.2-1.0 [facility] [place] Comment on above: Performed By: #### C DANY, BUN #### [facility] [address] [address] [address] Marianela Villa Calcium [Mass/Vol] 9.1 mg/dL Normal 8.5-10.1 [facility] Comment on above: Performed By: #### C DANY, BUN #### [facility] [address] [address] [address] Marianela Villa Chloride [Moles/Vol] 103 mmol/L Normal 98-107 [facility] [place] Comment on above: Performed By: #### C DANY, BUN #### [facility] [address] [address] [address] Marianela Villa CO2 [Moles/Vol] 27.0 mmol/L Normal 21.0-32.0 [facility] Comment on above: Performed By: #### C DANY, BUN #### [facility] [address] [place] [address] Dr. Marianela Villa Creatinine [Mass/Vol] 0.70 mg/dL Normal 0.55-1.02 [facility] [place] Comment on above: Performed By: #### C DANY, BUN #### [facility] [address] [address] [address] Marianela Villa EGFR-AF CITIZEN OF [place] >60 Normal >=60 [facility] Comment on above: Performed By: #### C DANY, BUN #### [facility] [address] [place] [address] Dr. Marianela Villa EGFR-NON AF CITIZEN OF [place] >60 Normal >=60 [facility] [place] Comment on above: Performed By: #### C DANY, BUN #### [facility] [address] [place] [address] Dr. Marianela Villa Globulin (S) [Mass/Vol] 3.9 g/dL Normal [facility] [place] Comment on above: Performed By: #### C DANY, BUN #### [facility] [address] [place] [address] Dr. Marianela Villa Glucose [Mass/Vol] 88 mg/dL Normal 74-106 [facility] Comment on above: Performed By: #### C DANY, BUN #### [facility] [address] [place] [address] Dr. Marianela Villa Potassium [Moles/Vol] 3.9 mmol/L Normal 3.5-5.1 [facility] Comment on above: Performed By: #### C DANY, BUN #### [facility] [address] [place] [address] Dr. Marianela Villa Protein [Mass/Vol] 7.9 g/dL Normal 6.4-8.2 [facility] Comment on above: Performed By: #### C DANY, BUN #### [facility] [address] [place] [address] Dr. Marianela Villa Sodium [Moles/Vol] 139 mmol/L Normal 136-145 [facility] Comment on above: Performed By: #### C DANY, BUN #### [facility] [address] [place] [address] Dr. Marianela Villa Urea nitrogen [Mass/Vol] 6.0 mg/dL Critically low 7.0-18.0 [facility] [place] Comment on above: Performed By: #### C DANY, BUN #### [facility] [address] [place] [address] Dr. Marianela Villa Urea nitrogen/Creatinin e [Mass ratio] 8.6 mg/mg Normal [facility] [place] Comment on above: Performed By: #### C DANY, BUN #### [facility] [address] [place] [address] Dr. Marianela Villa SED RATE [facility] 2021 SED RATE 49 mm/hr Critically high <=20 [facility] Comment on above: Performed By: #### C BC #### [facility] [address] [place] [address] Dr. Marianela Villa TSHon 02-02-2022 TSH 1.378 uIU/mL Normal 0.358-3.74 0 [facility] [place] Comment on above: Performed By: #### C DANY BUN #### [facility] [address] [place] [address] Dr. Marianela Villa UA RANDOM W/MICROSCOPICon BACTERIA NONE SEEN Normal NONE SEEN [facility] Comment on above: Performed By: #### P REG #### [facility] [address] [place] [address] Dr. Marianela Villa Bilirubin Ql (U) Negative Normal NEGATIVE The [facility] Comment on above: Performed By: #### P REG #### [facility] [address] [place] [address] Dr. Marianela Villa CAST NONE SEEN Normal NONE SEEN [facility] Comment on above: Performed By: #### P REG #### [facility] [address] [place] [address] Dr. Marianela Villa Clarity (U) CLEAR Normal CLEAR [facility] Comment on above: Performed By: #### P REG #### [facility] [address] [address] [address] Marianela Villa Color (U) LT. YELLOW Normal YELLOW [facility] Comment on above: Performed By: #### P REG #### [facility] [address] [address] [address] Marianela Villa Crystals LM Nom (Urine sed) NONE SEEN Normal NONE SEEN [facility] Comment on above: Performed By: #### P REG #### [facility] [address] [place] [address] Dr. Marianela Villa Epithelial cells LM Ql (Urine sed) FEW Abnormal NONE SEEN /RARE [facility] Comment on above: Performed By: #### P REG #### [facility] [address] [place] [address] Dr. Marianela Villa Glucose Ql (U) Negative Normal NEGATIVE The [facility] Comment on above: Performed By: #### P REG #### [facility] [address] [place] [address] Dr. Marianela Villa Hemoglobin Ql (U) Negative Normal NEGATIVE The [facility] Comment on above: Performed By: #### P REG #### [facility] [address] [place] [address] Dr. Marianela Villa Ketones Ql (U) Negative Normal NEGATIVE The [facility] Comment on above: Performed By: #### P REG #### [facility] [address] [place] [address] Dr. Marianela Villa LEUKOCYTES Negative Normal NEGATIVE [facility] Comment on above: Performed By: #### P REG #### [facility] [address] [place] [address] Dr. Marianela Villa MUCOUS NONE SEEN Normal NONE SEEN [facility] Comment on above: Performed By: #### P REG #### [facility] [address] [place] [address] Dr. Marianela Villa Nitrite Ql (U) Negative Normal NEGATIVE The [facility] Comment on above: Performed By: #### P REG #### [facility] [address] [place] [address] Dr. Marianela Villa pH (U) 6.5 [pH] Normal 5-9 [facility] Comment on above: Performed By: #### P REG #### [facility] [address] [place] [address] Dr. aMrianela Villa RBC NONE SEEN Abnormal 0-2 [facility] Comment on above: Performed By: #### P REG #### [facility] [address] [place] [address] Dr. Marianela Villa SPEC GRAVITY <=1.005 Abnormal 1.005-<=1. 025 [facility] Comment on above: Performed By: #### P REG #### [facility] [address] [place] [address] Dr. Marianela Villa UA PROTEIN Negative Normal NEGATIVE/ TRACE [facility] Comment on above: Performed By: #### P REG #### [facility] [address] [place] [address] Dr. Marianela Villa Urobilinogen Qn (U) 0.2 {Trish'U}/dL Normal 0.2 - 1.0 [facility] Comment on above: Performed By: #### P REG #### [facility] [address] [place] [address] Dr. Marianela Villa WBC NONE SEEN Normal NONE SEEN [facility] Comment on above: Performed By: #### P REG #### [facility] [address] [place] [address] Dr. Marianela Villa VITAMIN B12on 02-02-2022 Cobalamin (Vitamin B12) [Mass/Vol] 630.0 pg/mL Normal 193.0-986. 0 [facility] Comment on above: Performed By: #### P REG #### [facility] [address] [place] [address] Dr. Marianela Villa VITAMIN D 25 OHon 02-02-2022 VIT D 25-OH 42.7 ng/mL Normal [facility] Comment on above: Performed By: #### P REG #### [facility] [address] [place] [address] Dr. Marianela Villa VIT D RANGES SEE BELOW Normal [facility] Comment on above: Result Comment: <20 ng/mL Vit D deficient 20 - <30 ng/mL Vit D insufficient 30 - 100 ng/mL Vit D sufficient >100 ng/mL Potential Toxicity Performed By: #### P REG #### [facility] [address] [place] [address] Dr. Marianela Villa [facility] Reporton 01-02-2018 Report Normal [facility] Comment on above: Performed By: #### D NASTUDY #### Performed at [facility], [address] [place], [place] [id number] Vital Signs Date Time Vital Sign Value Performing Clinician Facility 05-02-2024 09:23-0500 Diastolic blood pressure 72 mm[Hg] Oneil Walkup [facility] 05-02-2024 09:23-0500 Systolic blood pressure 114 mm[Hg] Oneil Walkup PA [facility] 05-02-2024 09:22-0500 Body height 167.6 cm Oneil Walkup PA [facility] 05-02-2024 09:22-0500 Body mass index (BMI) [Ratio] 40.96 kg/m2 Oneil Walkup PA Work [facility] 05-02-2024 09:22-0500 Body temperature 98.01 [degF] Oneil Walkup PA Work Phone: [employer] 05-02-2024 09:22-0500 Body weight 115.12 kg Oneil Walkup PA [facility] 05-02-2024 09:22-0500 Heart rate 75 /min Oneil Walkup PA Work Phone: [employer] 05-02-2024 09:22-0500 SaO2% (BldA) [Mass fraction] 97 % Oneil Walkup PA Work Phone: [employer] 03-22-2024 08:20-0500 Body height 167.6 cm [facility] 03-22-2024 08:20-0500 Body mass index (BMI) [Ratio] 40.35 kg/m2 [facility] 03-22-2024 08:20-0500 Body weight 113.4 kg [facility] 03-19-2024 14:21-0500 Body height 167.6 cm Eleni Flores MD Work Phone: [facility] 03-19-2024 14:21-0500 Body mass index (BMI) [Ratio] 41.32 kg/m2 Eleni Flores MD Work Phone: [facility] 03-19-2024 14:-0500 Body weight 116.12 kg Eleni Flores MD Work Phone: [facility] 02-23-2024 10:29-0500 Body mass index (BMI) [Ratio] 41.13 kg/m2 Linda Redmond YARD CALLER Work Phone: [facility] 02-23-2024 10:29-0500 Body temperature 99.39 [degF] Linda Redmond YARD CALLER Work Phone: [facility] 02-23-2024 10:29-0500 Body weight 115.58 kg Linda Nyla YARD CALLER Work Phone: [facility] 02-23-2024 10:29-0500 Diastolic blood pressure 80 mm[Hg] Linda Redmond YARD CALLER Work Phone: [facility] 02-23-2024 10:29-0500 Heart rate 72 /min Linda Nyla YARD CALLER Work Phone: [facility] 02-23-2024 10:29-0500 Respiratory rate 19 /min Linda Nyla YARD CALLER Work Phone: [facility] 02-23-2024 10:29-0500 SaO2% (BldA) [Mass fraction] 99 % Linda Redmond YARD CALLER Work Phone: [facility] 02-23-2024 10:29-0500 Systolic blood pressure 120 mm[Hg] Linda Redmond YARD CALLER Work Phone: [facility] 01-31-2024 11:14-0400 Body height 167.6 cm Oneil Walkup PA Work Phone: [facility] 01-31-2024 11:14-0400 Body mass index (BMI) [Ratio] 41.32 kg/m2 Oneil Walkup PA Work Phone: [facility] 01-31-2024 11:14-0400 Body temperature 98.2 [degF] Oneil Walkup PA Work Phone: [facility] 01-31-2024 11:14-0400 Body weight 116.12 kg Oneil Walkup PA Work Phone: [facility] 01-31-2024 11:14-0400 Diastolic blood pressure 78 mm[Hg] Oneil Walkup PA Work Phone: [facility] 01-31-2024 11:14-0400 Heart rate 81 /min Oneil Walkup PA Work Phone: [facility] 01-31-2024 11:14-0400 SaO2% (BldA) [Mass fraction] 98 % Oneil Walkup PA Work Phone: [facility] 01-31-2024 11:14-0400 Systolic blood pressure 132 mm[Hg] Oneil Walkup PA Work Phone: [facility] [employer] [facility] 01-09-2024 09:23-0400 Body height 167.6 cm Linda Redmond YARD CALLER Work Phone: [facility] 01-09-2024 09:23-0400 Body mass index (BMI) [Ratio] 41.51 kg/m2 Linda Redmond YARD CALLER Work Phone: [facility] 01-09-2024 09:23-0400 Body temperature 98.01 [degF] Linda Redmond YARD CALLER Work Phone: [facility] 01-09-2024 09:23-0400 Body weight 116.67 kg Linda Redmond YARD CALLER Work Phone: [facility] 01-09-2024 09:23-0400 Diastolic blood pressure 80 mm[Hg] Linda Redmond YARD CALLER Work Phone: [facility] 01-09-2024 09:23-0400 Heart rate 71 /min Linda Redmond YARD CALLER Work Phone: [facility] 01-09-2024 09:23-0400 Respiratory rate 19 /min Linda Redmond YARD CALLER Work Phone: [facility] 01-09-2024 09:23-0400 SaO2% (BldA) [Mass fraction] 98 % Linda Redmond YARD CALLER Work Phone: [facility] 01-09-2024 09:23-0400 Systolic blood pressure 122 mm[Hg] Linda Redmond YARD CALLER Work Phone: [facility] 01-02-2024 09:01-0400 Body height 167.6 cm [facility] [address] [place] [address] 01-02-2024 09:01-0400 Body mass index (BMI) [Ratio] 41.92 kg/m2 [facility] [address] [place] [address] 01-02-2024 09:01-0400 Body temperature 98.49 [degF] [facility] [address] [place] [address] 01-02-2024 09:01-0400 Body weight 117.8 kg [facility] [address] [place] [address] 01-02-2024 09:01-0400 Diastolic blood pressure 54 mm[Hg] [facility] [address] [place] [address] 01-02-2024 09:01-0400 Heart rate 74 /min [facility] [address] [place] [address] 01-02-2024 09:01-0400 Respiratory rate 16 /min [facility] [address] [place] [address] 01-02-2024 09:01-0400 SaO2% (BldA) [Mass fraction] 100 % [address] 01-02-2024 09:01-0400 Systolic blood pressure 114 mm[Hg] [facility] 14 [facility] 12-21-2023 10:06-0400 Diastolic blood pressure 66 mm[Hg] Gurpreet Dejesus MD Work Phone: [facility] 12-21-2023 10:06-0400 Systolic blood pressure 108 mm[Hg] Gurpreet Dejesus MD Work Phone: [facility] 12-21-2023 09:56-0400 Body height 167.6 cm Gurpreet Dejesus MD Work Phone: [facility] 12-21-2023 09:56-0400 Body mass index (BMI) [Ratio] 41.35 kg/m2 Gurpreet Dejesus MD Work Phone: [facility] 12-21-2023 09:56-0400 Body temperature 98.2 [degF] Gurpreet Dejesus MD Work Phone: [facility] 12-21-2023 09:56-0400 Body weight 116.21 kg Gurpreet Dejesus MD Work Phone: [facility] 12-21-2023 09:56-0400 Heart rate 72 /min Gurpreet Dejesus MD Work Phone: [facility] 12-21-2023 09:56-0400 SaO2% (BldA) [Mass fraction] 96 % Gurpreet Dejesus MD Work Phone: [facility] 12-14-2023 09:26-0400 Body height 167.6 cm Linda Redmond YARD CALLER Work Phone: [facility] 12-14-2023 09:26-0400 Body mass index (BMI) [Ratio] 41.03 kg/m2 Linda Redmond YARD CALLER Work Phone: [facility] 12-14-2023 09:26-0400 Body temperature 98.4 [degF] Linda Redmond YARD CALLER Work Phone: [facility] 12-14-2023 09:26-0400 Body weight 115.3 kg Linda Redmond YARD CALLER Work Phone: [facility] 12-14-2023 09:26-0400 Diastolic blood pressure 82 mm[Hg] Linda Redmond YARD CALLER Work Phone: [facility] 12-14-2023 09:26-0400 Heart rate 71 /min Linda Redmond YARD CALLER Work Phone: [facility] 12-14-2023 09:26-0400 Respiratory rate 18 /min Linda Redmond YARD CALLER Work Phone: [facility] 12-14-2023 09:26-0400 SaO2% (BldA) [Mass fraction] 99 % Linda Redmond YARD CALLER Work Phone: [facility] 12-14-2023 09:26-0400 Systolic blood pressure 118 mm[Hg] Linda Redmond YARD CALLER Work Phone: [facility] 12-01-2023 13:42-0400 Body mass index (BMI) [Ratio] 40.96 kg/m2 Johanna Brandt PA Work Phone: [facility] 12-01-2023 13:42-0400 Body weight 115.12 kg Johanna Brandt PA Work Phone: [facility] 12-01-2023 13:42-0400 Diastolic blood pressure 80 mm[Hg] Johanna Brandt PA Work Phone: [facility] 12-01-2023 13:42-0400 Systolic blood pressure 118 mm[Hg] Johanna Brandt PA Work Phone: [facility] 03-05-2022 13:19-0500 Blood Pressure Location Halley BARBOSA [facility] 03-05-2022 13:19-0500 Diastolic blood pressure 76 mm[Hg] Halley BARBOSA [facility] 03-05-2022 13:19-0500 Heart rate 70 /min Halley BARBOSA [facility] 03-05-2022 13:0500 Respiratory rate 16 /min Halley BARBOSA [facility] 03-05-2022 13:0500 Systolic blood pressure 120 mm[Hg] Halley BARBOSA [facility] Encounters Encounter Date Encounter Type Care Provider Facility Start: 05-30-2024 End: 05-30-2024 Bamboo flowsheet Linda Redmond YARD CALLER Work Phone: [facility] Start: 05-30-2024 End: 05-30-2024 Bamboo flowsheet Linda Redmond YARD CALLER Work Phone: [facility] Start: 05-21-2024 End: 05-21-2024 Refill Oneil L Walkup PA Work Phone: [facility] Department of [facility] Comment on above: Menopause Start: 05-02-2024 End: 05-02-2024 Office outpatient visit 15 minutes Oneil L Walkup PA Work Phone: [facility] Department of [facility] Comment on above: Endometriosis (Prima ry Dx); Menopause; Hot flash, menopausal Start: 05-02-2024 End: 05-02-2024 ambulatory [facility] [employer] [facility] Start: 03-26-2024 End: 03-26-2024 Telephone encounter Linda Redmond YARD CALLER Work Phone: [facility] Start: 03-22-2024 End: 03-23-2024 Telephone encounter [facility] Start: 03-22-2024 End: 03-25-2024 Evaluation and management of inpatient LINDA Amalia REDMOND [facility] Start: 03-21-2024 End: 03-21-2024 Patient encounter procedure [facility] Pat Phone Call Provider 1 [facility] Comment on above: Arrived Start: 03-19-2024 End: 03-19-2024 Patient encounter procedure Caleb Shrestha MD Work Phone: [facility] Comment on above: Gall stones Start: 03-19-2024 End: 03-19-2024 ambulatory ELENI FLORES [facility] Start: 03-19-2024 ambulatory LINDA REDMOND [facility] Start: 02-23-2024 End: 02-23-2024 Bamboo flowsheet Linda Redmond YARD CALLER Work Phone: [facility] Start: 02-23-2024 End: 02-23-2024 Bamboo flowsheet Linda Redmond YARD CALLER Work Phone: [facility] Start: 02-23-2024 End: 02-23-2024 Clinisync Result Encounter Linda Redmond YARD CALLER Work Phone: [facility] Unsolicited Start: 02-23-2024 End: 02-23-2024 Office outpatient visit 25 minutes Linda Redmond YARD CALLER Work Phone: [facility] Comment on above: Subacute maxillary s inusitis (Primary Dx); Morbid (severe) obesity due to excess calories (CMS/HCC); Body mass index (BMI) 40.0-44.9, adult (CMS/HCC); Elevated serum gamma-glutamyl transferase level; Alkaline phosphatase elevation; Calculus of gallbladder without cholecystitis without obstruction Start: 02-23-2024 End: 02-23-2024 ambulatory LINDA REDMOND Not Available Start: 02-15-2024 End: 02-15-2024 Orders Only Linda Redmond YARD CALLER Work Phone: [facility] Comment on above: Alkaline phosphatase elevation (Primary Dx) Start: 02-01-2024 End: 02-01-2024 Orders Only Oneil Locke PA Work Phone: [facility] Comment on above: Gall stones (Primary Dx); Menopause Start: 01-31-2024 End: 01-31-2024 Postop follow up visit related to original px Oneil Locke PA Work Phone: [facility] Comment on above: Postoperative visit (Primary Dx) Start: 01-31-2024 End: 01-31-2024 ambulatory ONEIL LOCKE [facility] Start: 01-13-2024 End: 01-13-2024 Evaluation and management of inpatient LINDA Amalia [facility] Start: 01-13-2024 End: 01-13-2024 Evaluation and management of inpatient GURPREET [facility] Start: 01-09-2024 End: 01-09-2024 Bamboo flowsheet Linda Redmond YARD CALLER Work Phone: [facility] Start: 01-09-2024 End: 01-09-2024 Bamboo flowsheet Linda Redmond YARD CALLER Work Phone: [facility] Start: 01-09-2024 End: 01-09-2024 Clinisync Result Encounter Linda Redmond YARD CALLER Work Phone: [facility] Unsolicited Start: 01-09-2024 End: 01-09-2024 Office outpatient visit 25 minutes Linda Redmond YARD CALLER Work Phone: [facility] Comment on above: Elevated serum gamma -glutamyl transferase level (Primary Dx); Alkaline phosphatase elevation; Morbid (severe) obesity due to excess calories (CMS/HCC); Left ovarian cyst; Calculus of gallbladder without cholecystitis without obstruction; Nephrolithiasis Start: 01-09-2024 End: 01-09-2024 ambulatory LINDA REDMOND Not Available Start: 01-02-2024 End: 01-02-2024 Patient encounter procedure [facility] Provider [facility] Comment on above: Pre-op testing (Prim otilio Dx); Pelvic pain; Pelvic mass; Preop testing Start: 01-02-2024 End: 01-02-2024 Patient encounter status [facility] Start: 01-02-2024 End: 01-02-2024 ambulatory [facility] Start: 12-21-2023 Encounter for other preprocedural examination ELENI FLORES [facility] Start: 12-21-2023 End: 12-21-2023 Office outpatient new 60 minutes Gurpreet Dejesus MD Work Phone: [facility] Comment on above: Pelvic pain (Primary Dx); Pelvic mass; Preop testing Start: 12-21-2023 End: 12-21-2023 Patient encounter status Gurpreet Dejesus MD Work Phone: [facility] Start: 12-21-2023 End: 12-21-2023 ambulatory GURPREET [facility] Start: 12-21-2023 Encounter for other preprocedural examination [facility] Start: 12-14-2023 End: 12-14-2023 Bamboo flowsheet Linda Redmond YARD CALLER Work Phone: [facility] Start: 12-14-2023 End: 12-14-2023 Bamboo flowsheet Linda Redmond YARD CALLER Work Phone: [facility] Start: 12-14-2023 End: 12-14-2023 Office outpatient visit 25 minutes Linda Redmond YARD CALLER Work Phone: [facility] Comment on above: Elevated serum gamma -glutamyl transferase level (Primary Dx); Morbid (severe) obesity due to excess calories (CMS/HCC); Body mass index (BMI) 40.0-44.9, adult (CMS/HCC); Alkaline phosphatase elevation Start: 12-14-2023 End: 12-14-2023 ambulatory LINDA REDMOND Not Available Start: 12-13-2023 End: 12-13-2023 Orders Only Linda Redmond YARD CALLER Work Phone: [facility] Comment on above: Alkaline phosphatase elevation (Primary Dx); Elevated serum gamma-glutamyl transferase level Start: 12-08-2023 End: 12-08-2023 Clinisync Result Encounter Linda Redmond YARD CALLER Work Phone: [facility] Unsolicited Start: 12-08-2023 End: 12-08-2023 Clinisync Result Encounter Linda Aichholz YARD CALLER Work Phone: [facility] Unsolicited Start: 12-01-2023 End: 12-01-2023 Postop follow up visit related to original px Johanna Uma PA Work Phone: [facility] Comment on above: Postop check Start: 12-01-2023 End: 12-01-2023 ambulatory JOHANNA BRANDT Not Available Start: 11-25-2023 End: 11-25-2023 Clinisync Result Encounter Josh Mohini DO Work Phone: [facility] Unsolicited Start: 11-25-2023 End: 11-25-2023 Clinisync Result Encounter Josh Mohini DO Work Phone: [facility] Unsolicited Start: 11-07-2023 End: 11-07-2023 ambulatory JOSH MOHINI Not Available Start: 10-03-2023 End: 10-03-2023 ambulatory JOSH MOHINI Not Available Start: 09-29-2023 End: 09-29-2023 ambulatory LINDA AICHHOLZ Not Available Start: 08-31-2023 End: 08-31-2023 ambulatory LINDA AICHHOLZ Not Available Start: 07-19-2022 Encounter for preprocedural laboratory examination DR JOSH RAJAN . [facility] Start: 07-16-2022 End: 07-17-2022 ambulatory [facility] LINDA AICHHOLZ Facility:[facility] Start: 07-13-2022 End: 07-14-2022 ambulatory [facility] [facility] [facility] LINDA AICHHOLZ Facility:[facility] Start: 07-13-2022 End: 07-14-2022 Encounter for preprocedural laboratory examination [facility] [facility] LINDA AICHHOLZ Facility:[facility] Start: 07-09-2022 Encounter for preprocedural cardiovascular examination DR JOSH RAJAN . [facility] Start: 07-09-2022 Encounter for preprocedural laboratory examination DR JOSH RAJAN . [facility] Start: 07-01-2022 End: 07-02-[address] JOSH RAJAN . Facility:[facility] Start: 07-01-2022 End: 07-02-2022 Encounter for preprocedural cardiovascular examination DR JOSH RAJAN . Facility:[facility] Start: 05-05-2022 End: 05-06-2022 ambulatory YANG LERNER CARAlexREI Facility:[facility] Start: 04-26-2022 End: 04-26-2022 ambulatory [facility] LINDA CARAlexREI Facility:[facility] Start: 04-16-2022 End: 04-17-2022 ambulatory [facility] [facility] LINDA CARAlexREI Facility:[facility] Start: 04-14-2022 End: 04-15-2022 ambulatory Halley BARBOSA Facility:[facility] Start: 04-14-2022 End: 04-14-2022 Patient encounter procedure Halley BARBOSA General Surgery Nill/Said [facility] Start: 04-07-2022 End: 04-08-2022 ambulatory Halley BARBOSA Facility:[id number] Start: 03-31-2022 End: 04-01-[address] HALLEY BARBOSA . Facility:[facility] Start: 03-11-2022 End: 03-11-2022 ambulatory YANG CONDEA EDILMAREI Facility:[facility] Start: 03-05-2022 End: 03-06-2022 ambulatory Halley BARBOSA Facility:[facility] Start: 03-05-2022 End: 03-05-2022 Patient encounter procedure Halley BARBOSA General Surgery Nill/Said Bruno Start: 03-01-2022 End: 03-02-2022 ambulatory YANG CONDEA EDILMAREI Facility:[facility] Start: 02-18-2022 End: 02-19-2022 ambulatory [facility] LINDA CARAlexREI Facility:[facility] Start: 02-04-2022 End: 02-04-2022 ambulatory [facility] [facility] LINDA CARAlexREI Facility:[facility] Start: 02-03-2022 ambulatory Halley BARBOSA Facility:[facility] Start: 02-02-2022 End: 02-03-2022 ambulatory [facility] [facility] LINDA CARAlexREI Facility:[facility] Start: 01-02-2018 Patient encounter procedure NO PCP [facility] Procedures Date Procedure Procedure Detail Performing Clinician Start: 02-23-2024 ALL GAMMA GLUTAMYL TRANSPEPTIDASE Linda tellez YARD CALLER Work Phone: Start: 02-23-2024 HMHP LIVER PANEL Linda Freitasjustino YARD CALLER Work Phone: Start: 01-09-2024 ALL GAMMA GLUTAMYL TRANSPEPTIDASE Linda Crispin chirei YARD CALLER Work Phone: Start: 01-02-2024 Comprehensive metabolic panel Gurpreet henry MD Work Phone: Start: 01-02-2024 Ecg routine ecg w/least 12 lds trcg only w/o i&r Padma Giraldo MD Work Phone: Start: 12-08-2023 ALL GAMMA GLUTAMYL TRANSPEPTIDASE Linda Crispin tellez YARD CALLER Work Phone: Start: 12-08-2023 HP LIVER PANEL Linda Coronadorei YARD CALLER Work Phone: Start: 11-25-2023 ALL CBC WITH AUTO DIFF Generic External Data Provider Start: 09-16-2023 Mammography Josh Mohini DO Work Phone: Start: 08-31-2023 End: 05-30-2024 H/O: hysterectomy History of hysterectomy Josh Mohini DO Work Phone: Start: 04-07-2022 Colonoscopy Halley BARBOSA Start: 04-07-2022 Esophagogastroduodenoscopy Halley BARBOSA Start: 04-04-2008 section Halley BARBOSA Start: 04-04-2007 section Halley BARBOSA Extraction of wisdom tooth Ej kermit BARBOSA Plan of Treatment Date Care Activity Detail Author Start: 05-02-2025 Adult BMI Screening Adult BMI Screen [facility] Start: 03-22-2025 Adult BMI Screening Adult BMI Screen ing [facility] Start: 03-22-2025 Tobacco Screening Tobacco Screening [facility] Start: 03-19-2025 Adult BMI Screening Adult BMI Screen ing [facility] Start: 03-19-2025 Tobacco Screening Tobacco Screening [facility] Start: 01-30-2025 Adult BMI Screening Adult BMI Screen ing [facility] Start: 01-01-2025 Adult BMI Screening Adult BMI Screen ing [facility] Start: 01-01-2025 Tobacco Screening Tobacco Screening [facility] Start: 12-20-2024 Adult BMI Screening Adult BMI Screen ing [facility] Start: 09-15-2024 Screening for malign ant neoplasm of breast Mammogram [facility] Start: 07-31-2024 End: 07-31-2024 Patient encounter procedure 07/31/2024 9:30 AM EDT Office Visit [facility] Gynecology Oncology, Department of [facility] [address] [facility] [address] [place] [phone] Oneil Locke PA [address], JAN[address] [place] [address] [facility] Gynecology Oncology, Department of [facility] Start: 05-30-2024 End: 05-30-2024 Patient encounter procedure 05/30/2024 9:20 AM EST Office Visit [facility] [address] [place] [phone] Linda Redmond NP [address] [place] [address] Calculus of gallbladder without cholecystitis without obstruction (Primary Dx); Morbid (severe) obesity due to excess calories (CMS/HCC); Body mass index (BMI) 40.0-44.9, adult (CMS/HCC); Anxiety and depression (CMS/HCC); Alkaline phosphatase elevation; Elevated serum gamma-glutamyl transferase level [facility] Comment on above: Calculus of gallblad shasta without cholecystitis without obstruction (Primary Dx); Morbid (severe) obesity due to excess calories (CMS/HCC); Body mass index (BMI) 40.0-44.9, adult (CMS/HCC); Anxiety and depression (CMS/HCC); Alkaline phosphatase elevation; Elevated serum gamma-glutamyl transferase level Start: 04-26-2024 End: 04-26-2024 Patient encounter procedure 04/26/2024 9:40 AM EST Office Visit [facility] [address] [place] [address] Linda Redmond, SAULO [address] [place] [address] [facility] Start: 04-02-2024 End: 04-02-2024 Admission to same day surgery center 04/02/2024 7:30 AM EST - 04/02/2024 9:30 AM EST Surgery [address] [phone] [place] [address] [place] [address], [address] [place] [address] DAVINCI CHOLECYSTECTOMY [facility] Comment on above: DAVINCI CHOLECYSTECT DANETTE Start: 04-02-2024 End: 04-02-2024 DAVINCI CHOLECYSTECTOMY DAVINCI CHOLECYSTECTOMY GALLSTONES 04/02/2024 7:30 AM EST [facility] Start: 04-02-2024 Subsequent hospital visit by physician 04/02/2024 7:30 AM EST Hospital Encounter [facility] Surgery [address] [place] [phone] [place] [address] [place] [address], [address] [place] [address] [facility] Surgery Start: 02-23-2024 End: 02-23-2024 Patient encounter procedure [facility] Comment on above: Morbid (severe) obes ity due to excess calories (CMS/HCC) (Primary Dx); Body mass index (BMI) 40.0-44.9, adult (CMS/HCC); Elevated serum gamma-glutamyl transferase level; Alkaline phosphatase elevation; Calculus of gallbladder without cholecystitis without obstruction Start: 02-15-2024 End: 02-14-2025 DAVID BY IFA W/REFLEX ([facility]) DAVID BY IFA W/REFLEX ([facility]) Lab Routine Alkaline phosphatase elevation Expected: 02/15/2024 (Approximate), Expires: 02/14/2025 [facility] Comment on above: Expected: 02/15/2024 (Approximate), Expires: 02/14/2025 Start: 02-15-2024 End: 02-14-2025 DAVID W/REFLEX IF POSITIVE DAVID W/REFLEX IF POSITIVE Lab Routine Alkaline phosphatase elevation Expected: 02/15/2024 (Approximate), Expires: 02/14/2025 [facility] Work Phone: Comment on above: Expected: 02/15/2024 (Approximate), Expires: 02/14/2025 Start: 02-15-2024 End: 02-14-2025 Gamma glutamyl transferase [Enzymatic activity/volume] in Serum or Plasma Gamma GT Lab Routine Alkaline phosphatase elevation Expected: 02/15/2024 (Approximate), Expires: 02/14/2025 [facility] Comment on above: Expected: 02/15/2024 (Approximate), Expires: 02/14/2025 Start: 02-15-2024 End: 02-14-2025 Hepatic function 2000 panel - Serum or Plasma Hepatic function panel Lab Routine Alkaline phosphatase elevation Expected: 02/15/2024 (Approximate), Expires: 02/14/2025 [facility] Work Phone: Comment on above: Expected: 02/15/2024 (Approximate), Expires: 02/14/2025 Start: 02-09-2024 End: 02-09-2024 Patient encounter procedure 02/09/2024 10:30 AM EST Office Visit [facility] [address] [place] [address] Linda Redmond NP [address] [place] [address] MARCELINO MATTHEWS Start: 01-31-2024 End: 01-31-2024 Patient encounter procedure 01/31/2024 11:30 AM EDT Office Visit [facility] [address] [facility] [address] [place] [address] Oneil Locke PA [address], [facility] [address] [place] [address] [facility] Start: 01-13-2024 End: 01-13-2024 Admission to same day surgery center 01/13/2024 7:30 AM EDT - 01/13/2024 9:30 AM EDT Surgery [address] [phone] Gurpreet Dejesus MD [address] [place] [address], [address] [place], [place] [id number] DAVINCI LEFT OOPHORECTOMY POSSIBLE RIGHT OOPHORECTOMY [37779 (CPT )] [facility] Comment on above: DAVINCI LEFT OOPHORE CTOMY POSSIBLE RIGHT OOPHORECTOMY [36024 (CPT )] Start: 01-13-2024 End: 01-13-2024 Laparoscopy w/rmvl adnexal structures DAVINCI OOPHORECTOMY PELVIC PAIN, PELVIC MASS 01/13/2024 7:30 AM EDT [facility] Start: 01-13-2024 Subsequent hospital visit by physician 01/13/2024 7:30 AM EDT Hospital Encounter [address] [phone] [place] [address] [place] [address], [address] [place] [address] [facility] Surgery Start: 01-09-2024 End: 01-08-2025 Gamma glutamyl transferase [Enzymatic activity/volume] in Serum or Plasma Gamma GT Lab Routine Elevated serum gamma-glutamyl transferase level Expected: 01/09/2024 (Approximate), Expires: 01/08/2025 [facility] Work Phone: Comment on above: Expected: 01/09/2024 (Approximate), Expires: 01/08/2025 Start: 01-09-2024 End: 01-08-2025 US Abdomen limited US LIVER Imaging Routine Alkaline phosphatase elevation Elevated serum gamma-glutamyl transferase level Expected: 01/09/2024 (Approximate), Expires: 01/08/2025 [facility] Comment on above: Expected: 01/09/2024 (Approximate), Expires: 01/08/2025 Start: 01-09-2024 End: 01-09-2024 Patient encounter procedure [facility] Comment on above: Arrived Start: 01-02-2024 End: 01-02-2024 Patient encounter procedure 01/02/2024 8:45 AM EDT Procedure visit [facility] Pre-Admission Clinic On [address] [address] [facility] Pre-Admission Clinic On [facility] Start: 12-14-2023 End: 12-14-2023 Patient encounter procedure [facility] Comment on above: Morbid (severe) obes ity due to excess calories (CMS/HCC); Body mass index (BMI) 40.0-44.9, adult (CMS/HCC) Start: 12-13-2023 End: 12-12-2024 CT Abdomen and Pelvis W contrast IV CT abdomen pelvis w IV contrast Imaging Routine Alkaline phosphatase elevation Elevated serum gamma-glutamyl transferase level Expected: 12/13/2023 (Approximate), Expires: 12/12/2024 [facility] Work Phone: Comment on above: Expected: 12/13/2023 (Approximate), Expires: 12/12/2024 Start: 12-04-2023 COVID-19 Vaccine () COVID-19 Vaccine () [facility] Start: 12-04-2023 COVID-19 Vaccine ( season) COVID-19 Vaccine ( season) [facility] Start: 12-04-2023 Influenza vaccination Influenza Vacc ine [facility] Start: 11-30-2023 End: 11-30-2023 Patient encounter procedure 11/30/2023 9:00 AM EDT Office Visit [facility] [address] [place] [address] Linda Redmond, YARD CALLER [address] [place] [address] [facility] Start: 08-29-2004 Screening for malign ant neoplasm of cervix Pap Smear [facility] Start: 08-29-2001 Adult BMI Follow Up Plan Adult BMI F ollow Up Plan [facility] Start: 1995 Depression Screening Depression Scre ening [facility] Start: 1995 Tobacco Screening Tobacco Screening [facility] Start: 08-29-1994 DTaP,Tdap and Td Vac cines (5 - Tdap) DTaP,Tdap and Td Vaccines (5 - Tdap) [facility] End: 12-20-2024 CBC W Auto Differential panel - Blood CBC with auto diff Lab Routine Pelvic pain Pelvic mass Preop testing 1 Occurrences starting 12/21/2023 until 12/20/2024 [facility] Work Phone: Comment on above: 1 Occurrences starti ng 12/21/2023 until 12/20/2024 End: 12-20-2024 Comprehensive metabolic 2000 panel - Serum or Plasma Comprehensive metabolic panel Lab Routine Pelvic pain Pelvic mass Preop testing 1 Occurrences starting 12/21/2023 until 12/20/2024 [facility] Comment on above: 1 Occurrences starti ng 12/21/2023 until 12/20/2024 Immunizations Immunization Date Immunization Notes Care Provider Jazlyn ciliheri 08-16-2020 SARS-CoV-2 (COVID-19 ) mRNA-1273 vaccine Halley BARBOSA [facility] Comment on above: Result Comment: 2021: TPVALL 07-19-2020 SARS-CoV-2 (COVID-19 ) mRNA-2651 vaccine Halley [facility]stance [facility] Comment on above: Result Comment: 2021: TPVALL 11-16-2001 meningococcal polysaccharide vaccine (MPSV4) Josh Mohini DO Work Phone: [facility] 11-15-2001 hepatitis B vaccine, pediatric or pediatric/adolescent dosage Josh Mohini DO Work Phone: [facility] 12-24-1985 haemophilus influenz ae type b vaccine, conjugate unspecified formulation Josh Mohini DO Work Phone: [facility] 05-28-1985 diphtheria, tetanus toxoids and pertussis vaccine Josh Mohini DO Work Phone: [facility] 05-28-1985 measles, mumps and rubella virus vaccine Josh Mohini DO Work Phone: [facility] 05-28-1985 trivalent poliovirus vaccine, live, oral Josh Mohini DO Work Phone: [facility] 03-20-1984 diphtheria, tetanus toxoids and pertussis vaccine Josh Mohini DO Work Phone: [facility] 1983 diphtheria, tetanus toxoids and pertussis vaccine Josh Mohini DO Work Phone: [facility] 1983 trivalent poliovirus vaccine, live, oral Josh Mohini DO Work Phone: [facility] 1983 diphtheria, tetanus toxoids and pertussis vaccine Josh Mohini DO Work Phone: [facility] 1983 trivalent poliovirus vaccine, live, oral Josh Mohini DO Work Phone: [facility] NEGATED: Highlighted row has not occurred!03-05-2022 influenza virus vaccine, unspecified formulation Halley BARBOSA [facility] Payers Date Payer Category Payer Commercial Managed C are - POS [employer] [id number] 2021 Managed Care HMO (unspecified) [id number] 2021 Private Health Insurance [employer] A SERENA POS II [id number] 2021-Present [phone] [address] [place] [address] [id number] 2010 Unknown [id number] 1983 Unknown [id number] 2.16840.1.740344.3.57 9.2.72 1983 Unknown [id number] 2.16.840.1.804600.3.57 9.2.727 1983 Unknown [id number] 2.16.840.1.412863.3.57 9.2.72 1983 Unknown [id number] 2.16.840.1.723743.3.57 9.2.593 1983 Unknown [id number] 2.16.840.1.009006.3.57 9.2.59 1983 Unknown [id number] 2.16.840.1.256506.3.57 9.2.593 1983 Unknown [id number] 2.16.840.1.148843.3.57 9.2.593 1983 Unknown [id number] 2.16.840.1.507510.3.57 9.2.593 1983 Unknown [id number] 2.16.840.1.831011.3.57 9.2.593 1983 Unknown [id number] 2.16.840.1.067432.3.57 9.2.593 1983 Unknown [id number] 2.16.840.1.665874.3.57 9.2.593 1983 Unknown [id number] 2.16.840.1.252330.3.57 9.2.593 1983 Unknown [id number] 2.16840.1.743075.3.57 9.2.593 1983 Unknown [id number] 2.16840.1.822842.3.57 9.2.593 1983 Unknown [id number] 2.16.840.1.472945.3.57 9.2.593 1983 Unknown [id number] 2.16.840.1.944607.3.57 9.2.593 1983 Unknown [id number] 2.16840.1.795533.3.57 9.2.1286 1983 Unknown [id number] 2.16840.1.420237.3.57 9.2.1286 1983 Unknown [id number] 2.16.840.1.042557.3.57 9.2.1259 1983 Unknown [id number] 2.16.840.1.329884.3.57 9.2.1259 1983 Unknown [id number] 2.16840.1.777492.3.57 9.2.1259 1983 Unknown [id number] 2.16.840.1.632628.3.57 9.2.1259 1983 Unknown [id number] 2.16.840.1.944235.3.57 9.2.1259 1983 Unknown [id number] 2.16.840.1.685278.3.57 9.2.1259 1983 Unknown [id number] 2.16.840.1.526800.3.57 9.2.1259 1983 Unknown [id number] 2.16.840.1.482508.3.57 9.2.1259 1983 Unknown [id number] 2.16.840.1.310645.3.57 9.2.1286 1983 Unknown [id number] 2.16.840.1.964367.3.57 9.2.1286 1983 Unknown [id number] 2.16.840.1.233292.3.57 9.2.128 1983 Unknown [id number] 2.16.840.1.450424.3.57 9.2.128 1983 Unknown [id number] 2.16.840.1.855388.3.57 9.2.128 1983 Unknown [id number] 2.16.840.1.535468.3.57 9.2.1286 1983 Unknown [id number] 2.16.840.1.783101.3.57 9.2.128 1983 Unknown [id number] 2.16.840.1.704536.3.57 9.2.128 1983 Unknown [id number] 2.16.840.1.468815.3.57 9.2.128 1959 Private Health Insurance [id number] Social History Date Type Detail Facility Start: 03-05-2022 End: 08-23-2022 Tobacco smoking status Never smoked tobacco (finding) [facility] Tobacco smoking status Never [facility] Start: 08-24-2023 End: 08-31-2023 Sex Assigned At Female [facility] Start: 08-23-2022 End: 12-21-2023 Tobacco use and exposure Smokeless tobacco non-user [facility] Start: 12-14-2023 End: 05-30-2024 Alcoholic beverage intake Ex-drinker (finding) [facility] Start: 08-24-2023 End: 12-14-2023 Alcoholic beverage intake [facility] Do you belong to any clubs or organizations such as scientologist groups, unions, fraternal or athletic groups, or school groups? Yes [facility] Are you now , , , , never or living with a partner? [facility] How often to you hav e a drink containing alcohol? 2-4 times a month [facility] How many standard dr inks containing alcohol do you have on a typical day? 1 or 2 [facility] How often do you hav e 6 or more drinks on 1 occasion? Never [facility] Do you feel stress - tense, restless, nervous, or anxious, or unable to sleep at night because your mind is troubled all the time - these days [OSQ] Rather much [facility] (I/We) worried wheth er (my/our) food would run out before (I/we) got money to buy more. Never true [facility] In the past 12 month s, was there a time when you were not able to pay the mortgage or rent on time? No [facility] Start: 08-31-2023 Alcohol Comment caffine: 1 cup of coffee and 2 cups soda daily [facility] Start: 1985 Sex assigned at Not on file [facility] Start: 01-16-2024 End: 03-22-2024 Alcoholic beverage intake Current drinker of alcohol (finding) [facility] Start: 07-19-2020 Sex Female (finding) [facility] Start: 01-02-2024 Alcohol Comment social [facility] Start: 12-21-2023 Alcohol Comment 1 glass of win e a month if at all [facility] Functional Status Date Assessment Result Facility 03-05-2022 Functional Status N/A General [facility] aziza [facility] Clinical Notes 03-05-2022 to 05-02-2024 CASEY Gastelum - 05/02/2024 9:30 AM ESTPatient Jess Flores MD - 03/19/2024 2:00 PM Carolynn Redmond NP - 02/23/2024 11:15 AM Carolynn Redmond NP - 02/23/2024 11:14 AM EST Note Date & Type Note Facility 05-02-2024 History of Present illness Narrative Subjective: Emily is a 38 y.o. female s/p RA-BSO on 01/13/24 for stage IV endometriosis. She is doing very well. She has been on the combi patch for menopause symptoms and is here today for a medication check. She reports that it is managing her hot flashes well and she is tolerating it without any issues or concerns. here for consultation from for evaluation and management of Left-sided endometrioma. The patient was recently taken back for a diagnostic laparoscopy and had a left ovarian cystectomy for an endometrioma the pathology returned benign as an endometriotic cyst. 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 She has a history of a previous hysterectomy. Emily : Denies Early satiety Denies Abdominal distention Denies Leg swelling Denies Shortness of breath Denies Vaginal bleeding Denies Change in bowel habits Denies Change in bladder habits Denies Nausea and vomiting All other systems negative, unless specifically noted in HPI. Past Gynecologic History: OB History No obstetric history on file. No LMP recorded. Patient has had a hysterectomy. Hormonal Contraceptives No HRT use No History of abnormal pap No Past Surgical History: Procedure Laterality Date SECTION x2 CYST REMOVAL partial ovarian cyst removal DAVINCI OOPHORECTOMY WITH LEFT URETEROLYSIS Bilateral 01/13/2024 Performed by Gurpreet Dejesus MD at [facility] HYSTERECTOMY LAPAROSCOPIC HYSTERECTOMY 2022 Past Medical History: Diagnosis Date Anemia previous-resolved per patient Anxiety with palpitations Breast disorder previous lump-non cancerous Dental disease missing teeth Depression Fractures left foot Headache sinus Kidney stone 12/2023 right Obesity Pelvic mass Pelvic pain PONV (postoperative nausea and vomiting) Prolonged emergence from general anesthesia Sinusitis, chronic Visual impairment Family History Problem Relation Age of Onset Anesthesia problems Neg Hx Social History Tobacco Use Smoking status: Never Smokeless tobacco: Never Substance Use Topics Alcohol use: Yes Review of Symptoms: Pertinent items are noted in HPI. Objective: BP 114/72 Pulse 75 Temp 36.7 C (98 F) (Temporal) Ht 167.6 cm (5' 6 ) Wt 115.1 kg (253 lb 12.8 oz) SpO2 97% BMI 40.96 kg/m ECO General appearance: alert, appears stated age and cooperative Head: Normocephalic, without obvious abnormality, atraumatic Neurologic: Grossly normal Labs: Lab Results Component Value Date WBC 8.1 01/02/2024 HGB 14.1 01/02/2024 HCT 41.0 01/02/2024 MCH 31.9 01/02/2024 MCHC 34.3 01/02/2024 PLT 188 01/02/2024 MPV 9.7 01/02/2024 RDW 14.2 01/02/2024 Lab Results Component Value Date BUN 13 01/02/2024 K 4.3 01/02/2024 CL 104 01/02/2024 ALBUMIN 4.4 01/02/2024 AST 51 (H) 01/02/2024 Assessment: Patient is diagnosed with Patient Active Problem List Diagnosis Pelvic mass Pelvic pain Preop testing Plan: 1. The patient has a documented plan of care to address pain . 2. S/P RA-BSO (previous hysterectomy) - she is doing well 3. Stage IV endometriosis - she is feeling much better at this time 4. Gallstones - she was evaluated by Dr Flores, but is planning to wait on a cholecystectomy at this time as she is completely asymptomatic 5. Menopause - doing well on Combi patch. Will plan to continue this until July (6 months since surgery) Refilled today and then will plan to transition to an estradiol 0.05mg patch - F/U in 3 months for a med check / change 6. Screening for breast cancer - will discuss mammogram screening at follow-up visit in 3 months Total time spent was 25 minutes: Preparing to see the patient (e.g., review of tests) Performing a medically appropriate examination and/or evaluation Counseling and educating the patient/family/caregiver Referring and communicating with other health care mgr (not separately reported) Documenting clinical information in the electronic or other health record CASEY GASTELUM Dr. was physically present in the office, available for the entirety of the patient's visit, and participated in the coordination of treatment plan. CASEY Gastelum 05/02/24 0953 documented in this encounter [facility] 03-21-2024 Instructions Svitlana Cohen RN - 03/21/2024 1:15 PM EST Your surgery/procedure is scheduled at [facility] on 04/02/2024 at 7:30 am Arrival Time 5:30 am [facility] Address: [address] [place] [address] in [address]1 Parking lot located on [facility]. Report to the Entrance B. Check in at the information desk the surgery. The waiting room located on the second floor. If you have any questions prior to surgery, please call Pre-Admission Clinic at [phone] between 7:30 am and 4:30 pm Tuesday through Tuesday. If you have questions the morning of surgery, please call the Pre-op Department at [phone]. Notify your SURGEON if you develop any illness such as a cold, cough, fever, sore throat, vomiting or are hospitalized between now and your surgery. Medication Instructions (Do not stop your medications without consulting the prescribing physician). Take the following medications the morning of surgery with a sip of water: NONE Take inhalers as prescribed the morning of surgery. Due to the risk associated with these medications. If these medications are not held per instruction below, your surgery is at an increased risk for cancellation. SGLT2 Medications- Hold 3 days prior to surgery: Jardiance, Empagliflozin, Farxiga, Dapagliflozin, Invokana, Canagliflozin, Trijardy, Synjardy GLP-1 Medications (Injection or Pill)- If taken [...] piercings ,hair extensions that contain metal, nail georgian, make-up, and contact lens. You may brush [...] RIGHTS AND RESPONSIBILITIES As a patient at [facility], you have the right to: Receive medical care and be informed of who is taking care of you Be treated with dignity and respect Have a family member/quality audit representative of choice and your physician notified of your admission Receive information and actively participate in decisions about your care and treatment Refuse care, treatment and services Decide who may provide your support and speak for you Access advent and spiritual services Participate in ethical issues [...] of hospital charges and payment methods Patient/patient quality audit representative responsibilities are to: Provide information about health status to facilitate care, treatment and services Follow the treatment, plan, keep appointments and speak up when you do not understand the plan Respect the rights of other patients and healthcare personnel Follow organizational rules and regulations that support quality care and a safe environment Fulfill financial obligations as promptly as possible documented in this encounter [facility] 03-19-2024 History of Present illness Narrative Images from the original note were not included. CHIEF COMPLAINT: abnormal labs History of Present Illness: Emily Colbert is a 38 y.o. female with PMHx of anxiety, depression, and recent oophorectomy and prior surgical history of hysterectomy. She states her YARD CALLER has been checking her labs and noted an elevated alk phos as well as elevated GGT. She denies abdominal pain, bloating, nausea, vomiting, post prandial symptoms. RUQ US and CT AP both showed cholelithiasis. Past Medical History: Diagnosis Date Anemia previous-resolved per patient Anxiety with palpitations Breast disorder previous lump-non cancerous Dental disease missing teeth Depression Fractures left foot Headache sinus Kidney stone 12/2023 right Pelvic mass Pelvic pain Prolonged emergence from general anesthesia Sinusitis, chronic Visual impairment Patient Active Problem List Diagnosis Pelvic mass Pelvic pain Preop testing Past Surgical History: Procedure Laterality Date SECTION x2 CYST REMOVAL partial ovarian cyst removal DAVINCI OOPHORECTOMY WITH LEFT URETEROLYSIS Bilateral 01/13/2024 Performed by Gurpreet Dejesus MD at [facility] 2022 Allergies Allergen Reactions Keflex [Cephalexin] Syncope Current Outpatient Medications: busPIRone (BUSPAR) 15 mg tablet, Take 0.5 tablets (7.5 mg total) by mouth in the morning and 0.5 tablets (7.5 mg total) before bedtime. Indications: repeated episodes of anxiety., Disp: , Rfl: cholecalciferol, vitamin D3, (VITAMIN D3) 2,000 units capsule, Take 1 capsule (2,000 Units total) by mouth in the morning. Indications: prevention of vitamin D deficiency., Disp: , Rfl: clonazePAM (KlonoPIN) 0.5 mg tablet, Take 1 tablet (0.5 mg total) by mouth 3 (three) times a day as needed for anxiety., Disp: , Rfl: estradiol-norethindrone acet (COMBIPATCH) 0.05-0.14 mg/24 hr, Place 1 patch on the skin 2 (two) times a week., Disp: 8 patch, Rfl: 3 FOLIC ACID ORAL, Take 5 mg by mouth in the morning., Disp: , Rfl: vqzqmyfixzdk-Jk-qgcu-minerals tablet, Take 1 tablet by mouth in the morning., Disp: , Rfl: sennosides-docusate sodium (SENNA WITH DOCUSATE SODIUM) 8.6-50 mg, Take 1 tablet by mouth in the morning., Disp: 60 tablet, Rfl: 0 acetaminophen (TYLENOL EXTRA STRENGTH) 500 mg tablet, Take 2 tablets (1,000 mg total) by mouth every 6 (six) hours as needed for pain., Disp: 60 tablet, Rfl: 0 ibuprofen (MOTRIN) 800 mg tablet, Take 1 tablet (800 mg total) by mouth every 8 (eight) hours as needed for pain., Disp: 60 tablet, Rfl: 0 magnesium oxide 500 mg tablet, Take 1 tablet (500 mg total) by mouth in the morning. Pt unsure of dose., Disp: , Rfl: Social History Socioeconomic History Marital status: Spouse name: Not on file Number of children: Not on file Years of education: Not on file Highest education level: Not on file Occupational History Not on file Tobacco Use Smoking status: Never Smokeless tobacco: Never Vaping Use Vaping status: Never Used Substance and Sexual Activity Alcohol use: Yes Comment: social Drug use: Not Currently Comment: rare-edible Sexual activity: Defer Partners: Male control/protection: Surgical Other Topics Concern Not on file Social History Narrative Not on file Social Drivers of Health Financial Resource Strain: Low Risk (08/24/2023) Received from [facility] Overall Financial Resource Strain (CARDIA) Difficulty of Paying Living Expenses: Not hard at all Food Insecurity: No Food Insecurity (03/19/2024) Hunger Screening Food Insecurity - Worry: Never True Food Insecurity - Inability: Never True Transportation Needs: No Transportation Needs (08/24/2023) Received from [facility] PRAPARE - Transportation Lack of Transportation (Medical): No Lack of Transportation (Non-Medical): No Physical Activity: Inactive (08/24/2023) Received from [facility] Exercise Vital Sign Days of Exercise per Week: 0 days Minutes of Exercise per Session: 0 min Stress: Stress Concern Present (08/24/2023) Received from [facility] [employer] - Occupational Stress Questionnaire Feeling of Stress : Rather much Social Connections: Socially Integrated (08/24/2023) Received from [facility] Social Connection and Isolation Panel [NHANES] Frequency of Communication with Friends and Family: Once a week Frequency of Social Gatherings with Friends and Family: Twice a week Attends Muslim Services: More than 4 times per year Active Member of Clubs or Organizations: Yes Attends Club or Organization Meetings: More than 4 times per year Marital Status: Interpersonal Safety: Not on file Housing Instability: Low Risk (08/24/2023) Received from [facility] Housing Stability Vital Sign Unable to Pay for Housing in the Last Year: No Number of Places Lived in the Last Year: 1 Unstable Housing in the Last Year: No Family History Problem Relation Age of Onset Anesthesia problems Neg Hx Review of Systems Gastrointestinal: Negative for abdominal distention, abdominal pain, diarrhea, nausea and vomiting. All other systems reviewed and are negative. Physical Exam HENT: Head: Normocephalic and atraumatic. Mouth/Throat: Pharynx: Oropharynx is clear. Eyes: Extraocular Movements: Extraocular movements intact. Pulmonary: Effort: Pulmonary effort is normal. No respiratory distress. Abdominal: General: There is no distension. Palpations: Abdomen is soft. Tenderness: There is no abdominal tenderness. There is no guarding. Neurological: Mental Status: She is alert and oriented to person, place, and time. Psychiatric: Mood and Affect: Mood normal. Behavior: Behavior normal. Vital Signs: Height 167.6 cm (5' 6 ), weight 116.1 kg (256 lb). Respiratory Source: No data recorded Admission Weight: Weight: 116.1 kg (256 lb) Labs: Lab Results Component Value Date WBC 8.1 01/02/2024 HGB 14.1 01/02/2024 HCT 41.0 01/02/2024 MCV 93 01/02/2024 PLT 188 01/02/2024 Lab Results Component Value Date GLU 92 01/02/2024 CALCIUM 9.8 01/02/2024 K 4.3 01/02/2024 CO2 25 01/02/2024 CL 104 01/02/2024 BUN 13 01/02/2024 CREATININE 0.86 01/02/2024 No results found for: AMYLASE No results found for: LIPASE Lab Results Component Value Date ALT 51 (H) 01/02/2024 AST 51 (H) 01/02/2024 ALKPHOS 157 (H) 01/02/2024 No results found for: INR , PROTIME Imaging: Independently reviewed. Assessment: Emily Colbert is a 38 y.o.female with elevated liver enzymes in the setting of cholelithiasis. She would like operative intervention. Plan: - robotic assisted cholecystectomy MD ROSEANNA General Surgery Resident, [facility] General Surgery [facility] Robotic Surgery Surgical Critical Care [phone] documented in this encounter [facility] 02-23-2024 History of Present illness Narrative Associated Problem(s): Alkaline phosphatase elevation Recheck labs, GGT and DAVID Associated Problem(s): Elevated serum gamma-glutamyl transferase level Repeat labs and add GGT and DAVID level Associated Problem(s): Subacute maxillary sinusitis Will prescribe doxy 100mg BID for 10 days Fluids, fu if not better Associated Problem(s): Morbid (severe) obesity due to excess calories (CMS/HCC) Discussed with patient their BMI (actual, verses recommended). We have also discussed lifestyle modifications: attempts to perform physical activity as chronic conditions allow, also to monitor dietary intake: increasing protein/fruits/veggies and lowering carb intake (unless contraindicated). Limit sodas, juices, and sugary drinks. Associated Problem(s): Calculus of gallbladder without cholecystitis without obstruction Has appt on 03/19/24 w general surgeon No acute pain or NV at this time Pt started having sinus congestion last Tuesday with headaches, itchy and painful ears, sinus pressure in the face, swollen jaw and throat glands, stuffy/ runny nose, dry cough, body aches over the weekend with cold chills. Pt is now on a new patch since having her ovaries removed she was having nausea vomiting and diarrhea for a couple weeks but has subsided since. Images from the original note were not included. Emily Colbert is a 38 y.o. female presents with chief complaint of No chief complaint on file. HPI: S/p bilat oophrectomy Doing well, bowels moving much better no pelvic pain feels she is recovering well from this She has been referred to General surgeon for eval to have gallbladder removed d/t stones No NV. No RUQ pain noted No other c/o at this time Sinusitis This is a new problem. The current episode started in the past 7 days. The problem has been gradually worsening since onset. There has been no fever. Associated symptoms include congestion, headaches and sinus pressure. Pertinent negatives include no chills, coughing, ear pain, shortness of breath or sore throat. Past treatments include nothing. The treatment provided no relief. SUBJECTIVE: MEDICATIONS: Current Outpatient Medications Medication Instructions acetaminophen (TYLENOL) 1,000 mg, Every 6 hours PRN busPIRone (BUSPAR) 7.5 mg, 2 times daily clonazePAM (KLONOPIN) 0.5 mg, 2 times daily doxycycline (VIBRA-TABS) 100 mg, Oral, 2 times daily, Take with a full glass of water and do not lie down for at least 30 minutes after. estradiol-norethindrone (Combipatch) 0.05-0.14 MG/DAY 1 patch, 2 times weekly folic acid (FOLVITE) 0.4 mg, Daily Multiple Vitamin (multivitamin) tablet 1 tablet, Daily ALLERGIES: Allergies Allergen Reactions Keflex [Cephalexin] REVIEW OF SYMPTOMS: Review of Systems Constitutional: Negative for appetite change, chills and fever. HENT: Positive for congestion and sinus pressure. Negative for ear pain and sore throat. Eyes: Negative for pain, discharge, redness and visual disturbance. Respiratory: Negative for cough, shortness of breath and wheezing. Cardiovascular: Negative for chest pain, palpitations and leg swelling. Gastrointestinal: Negative for abdominal pain, blood in stool, constipation, diarrhea, nausea and vomiting. Genitourinary: Negative for difficulty urinating, dysuria and frequency. Musculoskeletal: Negative for arthralgias, back pain, joint swelling and myalgias. Skin: Negative for rash and wound. Neurological: Positive for headaches. Negative for dizziness, tremors, seizures and syncope. Psychiatric/Behavioral: Negative for behavioral problems, self-injury and suicidal ideas. The patient is nervous/anxious. Hematological: Does not bruise/bleed easily. Endocrine: Negative for polydipsia, polyphagia and polyuria. Allergic/Immunologic: Negative for environmental allergies and food allergies. PAST MEDICAL HISTORY Past Medical History: Diagnosis Date Anemia Gastritis Ovarian cyst Past Surgical History: Procedure Laterality Date SECTION, LOW TRANSVERSE 12/13/2007 SECTION, LOW TRANSVERSE 03/17/2009 HYSTERECTOMY July 2022 ROBOTIC ASSISTED HYSTERECTOMY 07/09/2022 family history includes Cancer in her brother, father, and maternal grandmother; Diabetes in her maternal grandmother, mother, and mother's brother; Heart disease in her mother; Heart failure in her mother; Kidney cancer in her son; Lymphoma in her father. OBJECTIVE: Visit Vitals BP 120/80 (BP Location: Left arm, Patient Position: Sitting, BP Cuff Size: Adult long) Pulse 72 Temp 99.4 F (Temporal) Resp 19 Wt 254 lb 12.8 oz SpO2 99% BMI 41.13 kg/m OB Status Hysterectomy Smoking Status Never BSA 2.32 m Physical Exam Vitals and nursing note reviewed. Constitutional: General: She is not in acute distress. Appearance: Normal appearance. She is obese. She is not ill-appearing or diaphoretic. HENT: Head: Normocephalic and atraumatic. Right Ear: Tympanic membrane, ear canal and external ear normal. Left Ear: Tympanic membrane, ear canal and external ear normal. Nose: Congestion present. Comments: Maxillary sinus pressure Mouth/Throat: Mouth: Mucous membranes are moist. Pharynx: No oropharyngeal exudate or posterior oropharyngeal erythema. Eyes: Extraocular Movements: Extraocular movements intact. Conjunctiva/sclera: Conjunctivae normal. Neck: Vascular: No carotid bruit. Cardiovascular: Rate and Rhythm: Normal rate and regular rhythm. Pulses: Normal pulses. Heart sounds: Normal heart sounds. Pulmonary: Effort: Pulmonary effort is normal. No respiratory distress. Breath sounds: Normal breath sounds. No stridor. No wheezing. Abdominal: General: Bowel sounds are normal. There is no distension. Palpations: Abdomen is soft. There is no mass. Tenderness: There is no abdominal tenderness. There is no rebound. Hernia: No hernia is present. Musculoskeletal: General: Normal range of motion. Cervical back: Normal range of motion and neck supple. Right lower leg: No edema. Left lower leg: No edema. Lymphadenopathy: Cervical: No cervical adenopathy. Skin: General: Skin is warm and dry. Capillary Refill: Capillary refill takes 2 to 3 seconds. Findings: No rash. Neurological: General: No focal deficit present. Mental Status: She is alert and oriented to person, place, and time. Psychiatric: Mood and Affect: Mood normal. Behavior: Behavior normal. Thought Content: Thought content normal. Judgment: Judgment normal. ASSESSMENT AND PLAN: Follow up in about 2 months (around 04/24/2024) for Recheck. Problem List Items Addressed This Visit Morbid (severe) obesity due to excess calories (CMS/HCC) Discussed with patient their BMI (actual, verses recommended). We have also discussed lifestyle modifications: attempts to perform physical activity as chronic conditions allow, also to monitor dietary intake: increasing protein/fruits/veggies and lowering carb intake (unless contraindicated). Limit sodas, juices, and sugary drinks. Alkaline phosphatase elevation Recheck labs, GGT and DAVID Elevated serum gamma-glutamyl transferase level Repeat labs and add GGT and DAVID level Body mass index (BMI) 40.0-44.9, adult (CMS/HCC) Calculus of gallbladder without cholecystitis without obstruction Has appt on 03/19/24 w general surgeon No acute pain or NV at this time Subacute maxillary sinusitis - Primary Will prescribe doxy 100mg BID for 10 days Fluids, fu if not better Relevant Medications doxycycline (Vibra-Tabs) 100 MG tablet documented in this encounter [facility] 02-23-2024 Instructions Linda Redmond NP - 02/23/2024 10:30 AM EST Repeat the labs Doxycycline 100mg twice a day for 10 days for sinus infection, drink fluids Keep appt with general surgeon about the gall stones 03/19/24 documented in this encounter [facility] 02-01-2024 History of Present illness Narrative Referral placed to Dr. Flores for gallbladder issues. Will also change estrogen patch to Combi patch for 6 months due to extensive endometriosis. CASEY aGstelum 02/01/24 1009 documented in this encounter [facility] 01-31-2024 History of Present illness Narrative Subjective: Emily is a 38 y.o. female s/p RA-BSO on 01/13/24 for stage IV endometriosis. She is doing very well post-operatively. Bowels are working much better than pre-op, normal bladder habits. No fevers, chills, N/V. No pain. here for consultation from for evaluation and management of Left-sided endometrioma. The patient was recently taken back for a diagnostic laparoscopy and had a left ovarian cystectomy for an endometrioma the pathology returned benign as an endometriotic cyst. 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 She has a history of a previous hysterectomy. Emily : Denies Early satiety Denies Abdominal distention Denies Leg swelling Denies Shortness of breath Denies Vaginal bleeding Denies Change in bowel habits Denies Change in bladder habits Denies Nausea and vomiting All other systems negative, unless specifically noted in HPI. Past Gynecologic History: OB History No obstetric history on file. No LMP recorded. Patient has had a hysterectomy. Hormonal Contraceptives No HRT use No History of abnormal pap No Past Surgical History: Procedure Laterality Date SECTION x2 CYST REMOVAL partial ovarian cyst removal DAVINCI OOPHORECTOMY WITH LEFT URETEROLYSIS Bilateral 01/13/2024 Performed by Gurpreet Dejesus MD at [facility] 2022 Past Medical History: Diagnosis Date Anemia previous-resolved per patient Anxiety with palpitations Breast disorder previous lump-non cancerous Dental disease missing teeth Depression Fractures left foot Headache sinus Kidney stone 12/2023 right Pelvic mass Pelvic pain Prolonged emergence from general anesthesia Sinusitis, chronic Visual impairment Family History Problem Relation Age of Onset Anesthesia problems Neg Hx Social History Tobacco Use Smoking status: Never Smokeless tobacco: Never Substance Use Topics Alcohol use: Yes Comment: social Review of Symptoms: Pertinent items are noted in HPI. Objective: BP 132/78 Pulse 81 Temp 36.8 C (98.2 F) (Temporal) Ht 167.6 cm (5' 6 ) Wt 116.1 kg (256 lb) SpO2 98% BMI 41.32 kg/m ECO- Asymptomatic General appearance: alert, appears stated age and cooperative Head: Normocephalic, without obvious abnormality, atraumatic Neck: no adenopathy, no carotid bruit, no JVD, supple, symmetrical, trachea midline and thyroid not enlarged, symmetric, no tenderness/mass/nodules Lungs: clear to auscultation bilaterally Heart: regular rate and rhythm, S1, S2 normal, no murmur, click, rub or gallop Abdomen: Soft, nontender, incisions CDI without sign of infection Extremities: extremities normal, atraumatic, no cyanosis or edema Pulses: 2+ and symmetric Skin: Skin color, texture, turgor normal. No rashes or lesions Lymph nodes: Cervical, supraclavicular, and axillary nodes normal. Neurologic: Grossly normal Labs: Lab Results Component Value Date WBC 8.1 01/02/2024 HGB 14.1 01/02/2024 HCT 41.0 01/02/2024 MCH 31.9 01/02/2024 MCHC 34.3 01/02/2024 PLT 188 01/02/2024 MPV 9.7 01/02/2024 RDW 14.2 01/02/2024 Lab Results Component Value Date BUN 13 01/02/2024 K 4.3 01/02/2024 CL 104 01/02/2024 ALBUMIN 4.4 01/02/2024 AST 51 (H) 01/02/2024 Assessment: Patient is diagnosed with Patient Active Problem List Diagnosis Pelvic mass Pelvic pain Preop testing Plan: 1. The patient has a documented plan of care to address pain . 2. S/P RA-BSO (previous hysterectomy) - she is doing well post-operatively, recommended lifting restrictions for another 2 weeks - We will see her back in 4 weeks for her final post-op visit 3. Stage IV endometriosis - she is feeling much better at this time 4. Gallstones - will place referral to surgeon for further evaluation and recommendations 5. Menopause - doing well on ET, may consider adding progesterone for 6 months Total time spent was 25 minutes: Preparing to see the patient (e.g., review of tests) Performing a medically appropriate examination and/or evaluation Counseling and educating the patient/family/caregiver Referring and communicating with other health care mgr (not separately reported) Documenting clinical information in the electronic or other health record CASEY GASTELUM Dr. was physically present in the office, available for the entirety of the patient's visit, and participated in the coordination of treatment plan. CASEY Gastelum 01/31/24 1554 documented in this encounter [facility] 01-09-2024 History of Present illness Narrative Associated Problem(s): Nephrolithiasis Per CT findings Associated Problem(s): Calculus of gallbladder without cholecystitis without obstruction asymptomatic Associated Problem(s): Left ovarian cyst Cont with CORE MANAGER for surgery Associated Problem(s): Elevated serum gamma-glutamyl transferase level Reviewed CT scan findings Check liver US Recheck GGT I did discuss with Ej García labs and symptoms Agrees with POC Associated Problem(s): Alkaline phosphatase elevation Will order liver US Check GGT Pt is having neck surgery on Tuesday. Images from the original note were not included. Emily Colbert is a 38 y.o. female presents with chief complaint of No chief complaint on file. HPI: Here for a recheck. She is scheduled for surgery for ovarian mass this TuesdayJan 12. She has had not changes in her pelvic symptoms. She continues with elevated GGT, however she denies any acute abd pain, NV, no jaundice, no stool or urine discoloration, can some times have fluctuations in constipation/diarrhea. She does not drink alcohol on any freq occassions either. No other issues at this time. SUBJECTIVE: MEDICATIONS: Current Outpatient Medications Medication Instructions busPIRone (BUSPAR) 7.5 mg, Oral, 2 times daily clonazePAM (KLONOPIN) 0.5 mg, Oral, 2 times daily, Pt takes 0.5mg in the morning and two 0.5mg (1mg) before bedtime folic acid (FOLVITE) 0.4 mg, Oral, Daily magnesium 600 mg, Oral, Daily Multiple Vitamin (multivitamin) tablet 1 tablet, Oral, Daily ALLERGIES: Allergies Allergen Reactions Keflex [Cephalexin] REVIEW OF SYMPTOMS: Review of Systems Constitutional: Negative for appetite change, chills and fever. HENT: Negative for congestion, ear pain and sore throat. Eyes: Negative for pain, discharge, redness and visual disturbance. Respiratory: Negative for cough, shortness of breath and wheezing. Cardiovascular: Negative for chest pain, palpitations and leg swelling. Gastrointestinal: Negative for abdominal pain, blood in stool, constipation, diarrhea, nausea and vomiting. Genitourinary: Positive for pelvic pain. Negative for difficulty urinating, dysuria and frequency. Musculoskeletal: Negative for arthralgias, back pain, joint swelling and myalgias. Skin: Negative for rash and wound. Neurological: Negative for dizziness, tremors, seizures, syncope and headaches. Psychiatric/Behavioral: Negative for behavioral problems, self-injury and suicidal ideas. The patient is nervous/anxious. Depression Hematological: Does not bruise/bleed easily. Endocrine: Negative for polydipsia, polyphagia and polyuria. Allergic/Immunologic: Negative for environmental allergies and food allergies. PAST MEDICAL HISTORY Past Medical History: Diagnosis Date Anemia Gastritis Ovarian cyst Past Surgical History: Procedure Laterality Date SECTION, LOW TRANSVERSE 12/13/2007 SECTION, LOW TRANSVERSE 03/17/2009 HYSTERECTOMY July 2022 ROBOTIC ASSISTED HYSTERECTOMY 07/09/2022 family history includes Cancer in her brother, father, and maternal grandmother; Diabetes in her maternal grandmother, mother, and mother's brother; Heart disease in her mother; Heart failure in her mother; Kidney cancer in her son; Lymphoma in her father. OBJECTIVE: Visit Vitals BP 122/80 (BP Location: Left arm, Patient Position: Sitting, BP Cuff Size: Adult long) Pulse 71 Temp 98 F (Temporal) Resp 19 Ht 5' 6 Wt 257 lb 3.2 oz SpO2 98% BMI 41.51 kg/m OB Status Hysterectomy Smoking Status Never BSA 2.33 m Physical Exam Vitals and nursing note reviewed. Constitutional: General: She is not in acute distress. Appearance: Normal appearance. HENT: Head: Normocephalic and atraumatic. Right Ear: External ear normal. Left Ear: External ear normal. Nose: Nose normal. Mouth/Throat: Mouth: Mucous membranes are moist. Eyes: Extraocular Movements: Extraocular movements intact. Conjunctiva/sclera: Conjunctivae normal. Cardiovascular: Rate and Rhythm: Normal rate and regular rhythm. Pulses: Normal pulses. Heart sounds: Normal heart sounds. Pulmonary: Effort: Pulmonary effort is normal. Breath sounds: Normal breath sounds. No wheezing or rales. Abdominal: General: Bowel sounds are normal. There is no distension. Palpations: Abdomen is soft. There is no mass. Tenderness: There is no abdominal tenderness (mild LLQ discomfort). There is no guarding. Musculoskeletal: General: Normal range of motion. Cervical back: Normal range of motion and neck supple. Skin: General: Skin is warm and dry. Capillary Refill: Capillary refill takes 2 to 3 seconds. Findings: No rash. Neurological: General: No focal deficit present. Mental Status: She is alert and oriented to person, place, and time. Psychiatric: Mood and Affect: Mood normal. Behavior: Behavior normal. Thought Content: Thought content normal. Judgment: Judgment normal. ASSESSMENT AND PLAN: No follow-ups on file. Problem List Items Addressed This Visit Morbid (severe) obesity due to excess calories (CMS/HCC) Alkaline phosphatase elevation Will order liver US Check GGT Relevant Orders US LIVER Left ovarian cyst Cont with CORE MANAGER for surgery Elevated serum gamma-glutamyl transferase level - Primary Reviewed CT scan findings Check liver US Recheck GGT I did discuss with Ej García labs and symptoms Agrees with POC Relevant Orders Gamma GT US LIVER Calculus of gallbladder without cholecystitis without obstruction asymptomatic Nephrolithiasis Per CT findings documented in this encounter [facility] 01-02-2024 Instructions Johanna Gonzalez RN - 01/02/2024 8:45 AM EDT Your surgery/procedure is scheduled at [facility] on 01/13/2024 at 0730 Arrival [id number] [facility] Address: [address] [place] [address] in [address]ing [address] located on [facility]. Report to the Entrance B. Check in at the information desk the surgery. The waiting room located on the second floor. If you have any questions prior to surgery, please call Pre-Admission Clinic at [phone] between 7:30 am and 4:30 pm Tuesday through Tuesday. If you have questions the morning of surgery, please call the Pre-op Department at [phone]. Notify your SURGEON if you develop any [...] piercings ,hair extensions that contain metal, nail georgian, make-up, and contact lens. You may brush [...] RIGHTS AND RESPONSIBILITIES As a patient at [facility], you have the right to: Receive medical care and be informed of who is taking care of you Be treated with dignity and respect Have a family member/quality audit representative of choice and your physician notified of your admission Receive information and actively participate in decisions about your care and treatment Refuse care, treatment and services Decide who may provide your support and speak for you Access advent and spiritual services Participate in ethical issues [...] of hospital charges and payment methods Patient/patient quality audit representative responsibilities are to: Provide information about [...] in clean clothes. documented in this encounter [facility] 12-21-2023 History of Present illness Narrative Subjective: Emily is a 38 y.o. female here for consultation from for evaluation and management of Left-sided endometrioma. The patient was recently taken back for a diagnostic laparoscopy and had a left ovarian cystectomy for an endometrioma the pathology returned benign as an endometriotic cyst. 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 The patient is sent here for further evaluation and management. We did review her most recent CT scan which reveals a recurrence of the left-sided endometrioma we did discuss definitive surgical management of the left side as she has persistent and worsening left-sided pelvic pain. Oncology History No overview note Emily : Denies Early satiety Denies Abdominal distention Denies Leg swelling Denies Shortness of breath Denies Vaginal bleeding Denies Change in bowel habits Denies Change in bladder habits Denies Nausea and vomiting All other systems negative, unless specifically noted in HPI. Past Gynecologic History: OB History No obstetric history on file. No LMP recorded. Hormonal Contraceptives No HRT use No History of abnormal pap No Past Surgical History: Procedure Laterality Date CYSTECTOMY CYSTECTOMY partial LAPAROSCOPIC HYSTERECTOMY No past medical history on file. No family history on file. Social History Tobacco Use Smoking status: Never Smokeless tobacco: Never Substance Use Topics Alcohol use: Yes Comment: 1 glass of wine a month if at all Review of Symptoms: Pertinent items are noted in HPI. Objective: BP 108/66 Pulse 72 Temp 36.8 C (98.2 F) (Temporal) Ht 167.6 cm (5' 6 ) Wt 116.2 kg (256 lb 3.2 oz) SpO2 96% BMI 41.35 kg/m ECO- Asymptomatic General appearance: alert, appears stated age and cooperative Head: Normocephalic, without obvious abnormality, atraumatic Ears: normal TM's and external ear canals both ears Neck: no adenopathy, no carotid bruit, no JVD, supple, symmetrical, trachea midline and thyroid not enlarged, symmetric, no tenderness/mass/nodules Lungs: clear to auscultation bilaterally Breasts: normal appearance, no masses or tenderness Heart: regular rate and rhythm, S1, S2 normal, no murmur, click, rub or gallop Abdomen: abnormal findings: Soft, nontender, tenderness deep palpation left lower quadrant. Pelvic: Uterus and cervix are surgically absent, external genitalia is normal. Extremities: extremities normal, atraumatic, no cyanosis or edema Pulses: 2+ and symmetric Skin: Skin color, texture, turgor normal. No rashes or lesions Lymph nodes: Cervical, supraclavicular, and axillary nodes normal. Neurologic: Grossly normal Labs: No results found for: WBC , RBC , HGB , HCT , MCH , MCHC , PLT , MPV , RDW No results found for: BUN , NA , K , CL , BICARBONATE , GLUCOSE , ALBUMIN , PROT , CA , ALKP , AST , LABBILI No results found for: GGT No results found for: LDH No results found for: MG No results found for: PHOS No results found for: URIC Assessment: Patient is diagnosed with Patient Active Problem List Diagnosis Pelvic mass Pelvic pain Preop testing Plan: 1. The patient has a documented plan of care to address pain. 2. Pelvic pain, recurrent left-sided ovarian endometrioma -will plan for minimally invasive excision with a possible excision of the right if abnormal.. 3. Discussed the risks of surgery in detail including; bleeding, infection, damage to internal organs, risk of anesthesia including-clots, pneumonia, myocardial infarction, stroke and even . The patient understands the risks and elects to proceed. 4. Total time spent was 61 minutes: Preparing to see the patient (e.g., review of tests) Obtaining and/or reviewing separately obtained history Performing a medically appropriate examination and/or evaluation Counseling and educating the patient/family/caregiver Ordering medications, tests, or procedures Referring and communicating with other health care mgr (not separately reported) Documenting clinical information in the electronic or other health record Gurpreet Dejesus MD [facility] History of Present illness Narrative Associated Problem(s): Elevated serum gamma-glutamyl transferase level Will order a CT scan, to r/o liver pathology Unsure if recent CORE MANAGER procedure is effecting this or not Associated Problem(s): Alkaline phosphatase elevation No identifiable cause Pt is here to discuss and show pictures of her liver & cyst on her bowel that she had gotten/and tested after having her surgery. Images from the original note were not included. Emily Colbert is a 38 y.o. female presents with chief complaint of No chief complaint on file. HPI: Since last visit with me she has had part of ovarian cyst removed. Also is now being referred to CORE MANAGER/ONC in [place] next week so that they can discuss removing ovary. She had her fu liver testing done after her surgery as we have been attempting to determine the cause to elevated ALP. She has had a mild elevation in ALP, however also had GGT which was greater than 400. She denies any abd pain, NVD, no urine or skin discoloration, as well as no itchy skin. She is here to discuss what is next SUBJECTIVE: MEDICATIONS: Current Outpatient Medications Medication Instructions busPIRone (BUSPAR) 7.5 mg, Oral, 2 times daily clonazePAM (KLONOPIN) 0.5 mg, Oral, 2 times daily, Pt takes 0.5mg in the morning and two 0.5mg (1mg) before bedtime folic acid (FOLVITE) 0.4 mg, Oral, Daily magnesium 600 mg, Oral, Daily Multiple Vitamin (multivitamin) tablet 1 tablet, Oral, Daily ALLERGIES: Allergies Allergen Reactions Keflex [Cephalexin] REVIEW OF SYMPTOMS: Review of Systems Constitutional: Negative for appetite change, fatigue, fever and unexpected weight change. HENT: Negative for congestion, ear pain, sinus pressure, sinus pain and sore throat. Eyes: Negative for pain, discharge and visual disturbance. Breasts: Negative for breast mass and breast discharge. Respiratory: Negative for apnea, cough, chest tightness, shortness of breath and wheezing. Cardiovascular: Negative for chest pain, palpitations and leg swelling. Gastrointestinal: Negative for abdominal pain, constipation, diarrhea, nausea and vomiting. Genitourinary: Negative for decreased urine volume, difficulty urinating and dysuria. Musculoskeletal: Negative for arthralgias, back pain, gait problem and joint swelling. Skin: Negative for color change and rash. Neurological: Negative for dizziness, tremors, weakness and headaches. Psychiatric/Behavioral: Negative for agitation, hallucinations and suicidal ideas. The patient is nervous/anxious. Depression Hematological: Negative for adenopathy. Does not bruise/bleed easily. Endocrine: Negative for cold intolerance, heat intolerance, polydipsia and polyuria. Allergic/Immunologic: Negative for environmental allergies and food allergies. PAST MEDICAL HISTORY Past Medical History: Diagnosis Date Anemia Gastritis Ovarian cyst Past Surgical History: Procedure Laterality Date SECTION, LOW TRANSVERSE 12/13/2007 SECTION, LOW TRANSVERSE 03/17/2009 HYSTERECTOMY July 2022 ROBOTIC ASSISTED HYSTERECTOMY 07/09/2022 family history includes Cancer in her brother, father, and maternal grandmother; Diabetes in her maternal grandmother, mother, and mother's brother; Heart disease in her mother; Heart failure in her mother; Kidney cancer in her son; Lymphoma in her father. OBJECTIVE: Visit Vitals BP 118/82 (BP Location: Left arm, Patient Position: Sitting, BP Cuff Size: Adult long) Pulse 71 Temp 98.4 F (Temporal) Resp 18 Ht 5' 6 Wt 254 lb 3.2 oz SpO2 99% BMI 41.03 kg/m OB Status Hysterectomy Smoking Status Never BSA 2.31 m Physical Exam Vitals and nursing note reviewed. Constitutional: General: She is not in acute distress. Appearance: Normal appearance. HENT: Head: Normocephalic and atraumatic. Right Ear: External ear normal. Left Ear: External ear normal. Nose: Nose normal. Mouth/Throat: Mouth: Mucous membranes are moist. Eyes: Extraocular Movements: Extraocular movements intact. Conjunctiva/sclera: Conjunctivae normal. Cardiovascular: Rate and Rhythm: Normal rate and regular rhythm. Pulses: Normal pulses. Heart sounds: Normal heart sounds. Pulmonary: Effort: Pulmonary effort is normal. Breath sounds: Normal breath sounds. Abdominal: General: Bowel sounds are normal. There is no distension. Palpations: Abdomen is soft. There is no mass. Tenderness: There is no abdominal tenderness. Musculoskeletal: General: Normal range of motion. Cervical back: Normal range of motion and neck supple. Lymphadenopathy: Cervical: No cervical adenopathy. Skin: General: Skin is warm and dry. Capillary Refill: Capillary refill takes 2 to 3 seconds. Coloration: Skin is not jaundiced. Findings: No rash. Neurological: General: No focal deficit present. Mental Status: She is alert and oriented to person, place, and time. Psychiatric: Mood and Affect: Mood normal. Behavior: Behavior normal. Thought Content: Thought content normal. Judgment: Judgment normal. ASSESSMENT AND PLAN: No follow-ups on file. Problem List Items Addressed This Visit Morbid (severe) obesity due to excess calories (CMS/HCC) Alkaline phosphatase elevation No identifiable cause Elevated serum gamma-glutamyl transferase level - Primary Will order a CT scan, to r/o liver pathology Unsure if recent CORE MANAGER procedure is effecting this or not Body mass index (BMI) 40.0-44.9, adult (CMS/HCC) documented in this encounter [facility] 12-01-2023 History of Present illness Narrative Reason for Appointment: Patient ID: Emily Colbert is a 38 y.o. female who presents for Post-op Visit Patient presents today for 1 Week Post Op Follow Up appointment. MEDICATIONS Current Outpatient Medications Medication Instructions busPIRone (BUSPAR) 7.5 mg, Oral, 2 times daily clonazePAM (KLONOPIN) 0.5 mg, Oral, 2 times daily, Pt takes 0.5mg in the morning and two 0.5mg (1mg) before bedtime folic acid (FOLVITE) 0.4 mg, Oral, Daily magnesium 600 mg, Oral, Daily Multiple Vitamin (multivitamin) tablet 1 tablet, Oral, Daily ALLERGIES Allergies Allergen Reactions Keflex [Cephalexin] PROBLEMS Active Ambulatory Problems Diagnosis Date Noted Anxiety and depression (CMS/HCC) 08/31/2023 Bile reflux gastritis 08/31/2023 Dysmenorrhea 08/31/2023 Diarrhea 08/31/2023 History of hysterectomy 08/31/2023 Menorrhagia 08/31/2023 Obesity 08/31/2023 Unspecified dyspareunia 08/31/2023 Visual impairment 08/31/2023 Iron deficiency anemia 08/31/2023 Encounter for screening mammogram for malignant neoplasm of breast 08/31/2023 Pelvic pain 08/31/2023 Bloating symptom 08/31/2023 Alkaline phosphatase elevation 09/29/2023 Mixed hyperlipidemia (CMS/HCC) 09/29/2023 Left ovarian cyst 10/03/2023 Resolved Ambulatory Problems Diagnosis Date Noted No Resolved Ambulatory Problems Past Medical History: Diagnosis Date Anemia Gastritis Ovarian cyst HISTORY PAST MEDICAL HISTORY SOCIAL HISTORY Past Medical History: Diagnosis Date Anemia Gastritis Ovarian cyst Social History Tobacco Use Smoking status: Never Smokeless tobacco: Never Vaping Use Vaping status: Never Used Substance Use Topics Alcohol use: Not Currently Alcohol/week: 1.0 standard drink of alcohol Comment: caffine: 1 cup of coffee and 2 cups soda daily Drug use: Never FAMILY HISTORY Family History Problem Relation Name Age of Onset Diabetes Mother Josiane Heart disease Mother Josiane Heart failure Mother Josiane Lymphoma Father Kiana Cancer Father Kiana Kidney cancer Son Cancer Maternal Grandmother Veronika Diabetes Maternal Grandmother Veronika Cancer Brother Praful Diabetes Mother's Brother Barrie SURGICAL HISTORY Past Surgical History: Procedure Laterality Date SECTION, LOW TRANSVERSE 12/13/2007 SECTION, LOW TRANSVERSE 03/17/2009 HYSTERECTOMY July 2022 ROBOTIC ASSISTED HYSTERECTOMY 07/09/2022 REVIEW OF SYSTEMS Review of Systems: Review of Systems Constitutional: Negative. HENT: Negative. Eyes: Negative. Respiratory: Negative. Cardiovascular: Negative. Gastrointestinal: Negative. Genitourinary: Negative. Musculoskeletal: Negative. Skin: Negative. Neurological: Negative. All other systems reviewed and are negative. Hematological: Negative. Endocrine: Negative. Allergic/Immunologic: Negative. OBJECTIVE Objective: Physical Exam Constitutional: Appearance: Normal appearance. She is normal weight. HENT: Head: Normocephalic. Cardiovascular: Rate and Rhythm: Normal rate. Pulses: Normal pulses. Pulmonary: Effort: Pulmonary effort is normal. Breath sounds: Normal breath sounds. Abdominal: Palpations: Abdomen is soft. Musculoskeletal: General: Normal range of motion. Neurological: General: No focal deficit present. Mental Status: She is alert and oriented to person, place, and time. Skin: General: Skin is warm and dry. Psychiatric: Mood and Affect: Mood normal. Behavior: Behavior normal. Thought Content: Thought content normal. Judgment: Judgment normal. Vitals and nursing note reviewed. Vitals: Estimated body mass index is 40.96 kg/m as calculated from the following: Height as of 09/29/23: 5' 6 . Weight as of this encounter: 253 lb 12.8 oz. BP: 118/80 No LMP recorded. Patient has had a hysterectomy. ASSESSMENT & PLAN ICD-10-CM 1. Postop check Z09 Pt presents for post op right ovarian cystectomy. Pt seen to have left ovarian endometrioma with significant bowel adhesions. Pt will be referred to DR Dejesus to removal of left ovary due to adhesions Documented by CASEY York on behalf of: CASEY York documented in this encounter [facility] 07-16-2022 Note OP Note OPERATION DATE: 07/16/2022 ADDENDUM: Please note that a left ovarian cystectomy was performed using the LigaSure apparatus. [facility] 07-16-2022 Note OPERATIVE NOTE OPERATION DATE: 07/26/2022 PROCEDURE: Robotic assisted laparoscopic hysterectomy with right salpingectomy, left cystectomy of endometrioma and cystoscopy. PREOPERATIVE DIAGNOSIS: Menorrhagia, dysmenorrhea, pelvic pain, dyspareunia. POSTOPERATIVE DIAGNOSIS: Menorrhagia, dysmenorrhea, pelvic pain, dyspareunia including a left ovarian endometrioma. ANESTHESIA: General. SURGEON: Josh Rajan D.O. SHOE WORKER: PJ Quevedo URINE OUTPUT: Yellow and [...] Anesthesia first. Patient tolerated procedure well. [facility] 04-07-2022 Note OPERATIVE NOTE OPERATION DATE: 04/07/2022 [...] pathology results. CC: Linda Redmond, YANG [facility] 03-05-2022 Note Chief Complaint consultation for weight [...] (COVID-19) mRNA-1273 vaccine 07/19/2020 Recorded 2022-03-03: [facility] Comment on above: Result Comment: Elec tronically Signed By: BENITA GUTIERREZ, Halley Smith\Date and Time Signed: 03/05/22 13:57 EST Evaluation + Plan note No data available for this section General Surgery [facility] Evaluation note Diagnosis Elevated serum gamma-glutamyl transferase level- Primary Alkaline phosphatase elevation Other nonspecific abnormal serum enzyme levels Morbid (severe) obesity due to excess calories (CMS/HCC) Left ovarian cyst Other and unspecified ovarian cyst Calculus of gallbladder without cholecystitis without obstruction Nephrolithiasis Calculus of kidney [facility] Diagnosis Iron deficiency anemia, unspecified iron deficiency anemia type- Primary Obesity without serious comorbidity, unspecified classification, unspecified obesity type Encounter for screening mammogram for malignant neoplasm of breast Bloating symptom Flatulence, eructation, and gas pain Pelvic pain Anxiety and depression (CMS/HCC) Mixed hyperlipidemia (CMS/HCC)- Primary Mixed hyperlipidemia Alkaline phosphatase elevation Other nonspecific abnormal serum enzyme levels Obesity without serious comorbidity, unspecified classification, unspecified obesity type Iron deficiency anemia, unspecified iron deficiency anemia type Anxiety and depression (CMS/HCC) Elevated serum gamma-glutamyl transferase level- Primary Morbid (severe) obesity due to excess calories (CMS/HCC) Body mass index (BMI) 40.0-44.9, adult (CMS/HCC) Alkaline phosphatase elevation Other nonspecific abnormal serum enzyme levels Elevated serum gamma-glutamyl transferase level- Primary Alkaline phosphatase elevation Other nonspecific abnormal serum enzyme levels Morbid (severe) obesity due to excess calories (CMS/HCC) Left ovarian cyst Other and unspecified ovarian cyst Calculus of gallbladder without cholecystitis without obstruction Nephrolithiasis Calculus of kidney Alkaline phosphatase elevation- Primary Other nonspecific abnormal serum enzyme levels [facility] Diagnosis Iron deficiency anemia, unspecified iron deficiency anemia type- Primary Obesity without serious comorbidity, unspecified classification, unspecified obesity type Encounter for screening mammogram for malignant neoplasm of breast Bloating symptom Flatulence, eructation, and gas pain Pelvic pain Anxiety and depression (CMS/HCC) Mixed hyperlipidemia (CMS/HCC)- Primary Mixed hyperlipidemia Alkaline phosphatase elevation Other nonspecific abnormal serum enzyme levels Obesity without serious comorbidity, unspecified classification, unspecified obesity type Iron deficiency anemia, unspecified iron deficiency anemia type Anxiety and depression (CMS/HCC) Elevated serum gamma-glutamyl transferase level- Primary Morbid (severe) obesity due to excess calories (CMS/HCC) Body mass index (BMI) 40.0-44.9, adult (CMS/HCC) Alkaline phosphatase elevation Other nonspecific abnormal serum enzyme levels Elevated serum gamma-glutamyl transferase level- Primary Alkaline phosphatase elevation Other nonspecific abnormal serum enzyme levels Morbid (severe) obesity due to excess calories (CMS/HCC) Left ovarian cyst Other and unspecified ovarian cyst Calculus of gallbladder without cholecystitis without obstruction Nephrolithiasis Calculus of kidney Alkaline phosphatase elevation- Primary Other nonspecific abnormal serum enzyme levels [facility] Diagnosis Iron deficiency anemia, unspecified iron deficiency anemia type- Primary Obesity without serious comorbidity, unspecified classification, unspecified obesity type Encounter for screening mammogram for malignant neoplasm of breast Bloating symptom Flatulence, eructation, and gas pain Pelvic pain Anxiety and depression (CMS/HCC) Mixed hyperlipidemia (CMS/HCC)- Primary Mixed hyperlipidemia Alkaline phosphatase elevation Other nonspecific abnormal serum enzyme levels Obesity without serious comorbidity, unspecified classification, unspecified obesity type Iron deficiency anemia, unspecified iron deficiency anemia type Anxiety and depression (CMS/HCC) Elevated serum gamma-glutamyl transferase level- Primary Morbid (severe) obesity due to excess calories (CMS/HCC) Body mass index (BMI) 40.0-44.9, adult (CMS/HCC) Alkaline phosphatase elevation Other nonspecific abnormal serum enzyme levels Elevated serum gamma-glutamyl transferase level- Primary Alkaline phosphatase elevation Other nonspecific abnormal serum enzyme levels Morbid (severe) obesity due to excess calories (CMS/HCC) Left ovarian cyst Other and unspecified ovarian cyst Calculus of gallbladder without cholecystitis without obstruction Nephrolithiasis Calculus of kidney Subacute maxillary sinusitis- Primary Morbid (severe) obesity due to excess calories (CMS/HCC) Body mass index (BMI) 40.0-44.9, adult (CMS/HCC) Elevated serum gamma-glutamyl transferase level Alkaline phosphatase elevation Other nonspecific abnormal serum enzyme levels Calculus of gallbladder without cholecystitis without obstruction documented in this encounter [facility]* Diagnosis Postop check Follow-up examination, following unspecified surgery [facility]* Diagnosis Alkaline phosphatase elevation- Primary Other nonspecific abnormal serum enzyme levels Elevated serum gamma-glutamyl transferase level documented [facility]* Diagnosis Elevated serum gamma-glutamyl transferase level- Primary Morbid (severe) obesity due to excess calories (CMS/HCC) Body mass index (BMI) 40.0-44.9, adult (CMS/HCC) Alkaline phosphatase elevation Other nonspecific abnormal serum enzyme levels documented [facility]* Diagnosis Gall stones Calculus of gallbladder without mention of cholecystitis or obstruction [facility] Diagnosis Endometriosis- Primary Endometriosis, site unspecified Menopause Symptomatic menopausal or female climacteric states Hot flash, menopausal Symptomatic menopausal or female climacteric states [facility] Diagnosis Pre-op testing- Primary Unspecified pre-operative examination Pelvic pain Pelvic mass Abdominal or pelvic swelling, mass or lump, unspecified site Preop testing Unspecified pre-operative examination documented in this encounter [facility]* Diagnosis Pelvic pain- Primary Pelvic mass Abdominal or pelvic swelling, mass or lump, unspecified site Preop testing Unspecified pre-operative examination documented in this encounter [facility]* Diagnosis Postoperative visit- Primary documented in this encounter [facility]* Diagnosis Gall stones- Primary Calculus of gallbladder without mention of cholecystitis or obstruction Menopause Symptomatic menopausal or female climacteric states documented in this encounter [facility]* Diagnosis Menopause Symptomatic menopausal or female climacteric states [facility] No data available for this section General Surgery [facility] InstructionsNot on filedocumented in this encounter [facility] filedocumented [facility] filedocumented in [facility] filedocumented in this [facility] filedocumented in [facility] filedocumented [facility] No data available for this section [...] testing Procedures Follow anesthesia guideines Kandice Cerrato, [employer] [address] [id number] Referral ID Status Reason Start Date Expiration Date V isits Requested Visits Authorized [id number] Pending Review 01/02/2024 01/01/2025 1 1 Specialty Diagnoses / Procedures Referred By Contac t Referred To Contact Diagnoses Pre-op testing Procedures ECG 12 lead Mancini-Berridi, Padma Farzaneh, MD [address] [place] [address] Referral ID Status Reason Start Date Expiration Date V isits Requested Visits Authorized [id number] Pending Review 01/02/2024 01/01/2025 1 1 Specialty Diagnoses / Procedures Referred By Contac t Referred To Contact Diagnoses Alkaline phosphatase elevation Elevated serum gamma-glutamyl transferase level Procedures CT abdomen pelvis w IV contrast Linda Redmond NP [address] [place] [address] [facility] [address] [place] [address] Referral ID Status Reason Start Date Expiration Date V isits Requested Visits Authorized [id number] Pending Review 12/13/2023 06/10/2024 1 1 Additional Source Comments INFORMATION SOURCE (unrecogn ized section and content) DATE CREATED AUTHOR 05/16/2018 [facility] DATE CREATED AUTHOR AUTHOR'S ORGANIZ ATION 04/17/2022 [facility] DATE CREATED AUTHOR AUTHOR'S ORGANIZ ATION 08/03/2022 [facility] DATE CREATED AUTHOR AUTHOR'S ORGANIZ ATION 02/01/2024 [facility] DATE CREATED AUTHOR AUTHOR'S ORGANIZ ATION 02/26/2024 [facility] EPIC DATE CREATED AUTHOR AUTHOR'S ORGANIZ ATION 03/21/2024 [facility] DATE CREATED AUTHOR AUTHOR'S ORGANIZ ATION 05/04/2024 [facility] Patient Care team informatio n (unrecognized section and content) Senior Java Data Architect Relationship Specialty Start Date End Date Meir García MD [address] [place] [address] PCP - General Family Medicine 08/31/23 Senior Java Data Architect Relationship Specialty Start Date End Date Meir García MD [address] [place] [address] PCP - General Family Medicine 08/31/23 Senior Java Data Architect Relationship Specialty Start Date End Date Meir García MD [address] [place] [address] PCP - General Family Medicine 08/31/23 Senior Java Data Architect Relationship Specialty Start Date End Date Meir García MD [address] [place] [address] PCP - General Family Medicine 08/31/23 Senior Java Data Architect Relationship Specialty Start Date End Date Meir García MD [address] [place] [address] PCP - General Family Medicine 08/31/23 Senior Java Data Architect Relationship Specialty Start Date End Date Meir García MD [address] [place] [address] PCP - General Family Medicine 08/31/23 Senior Java Data Architect Relationship Specialty Start Date End Date Meir García MD [address] [place] [address] PCP - General Family Medicine 08/31/23 Senior Java Data Architect Relationship Specialty Start Date End Date Meir García MD [address] [place] [address] PCP - General Family Medicine 08/31/23 Senior Java Data Architect Relationship Specialty Start Date End Date Meir García MD [address] [place] [address] PCP - General Family Medicine 08/31/23 Senior Java Data Architect Relationship Specialty Start Date End Date Meir García MD [address] [place] [address] PCP - General Family Medicine 08/31/23 Senior Java Data Architect Relationship Specialty Start Date End Date Meir García MD [address] [place] [address] PCP - General Family Medicine 08/31/23 Senior Java Data Architect Relationship Specialty Start Date End Date Linda Redmond, SANDWICH MAKER-HEALTHCARE ADMINISTRATION INTERN [address] [place] [address] PCP - General Nurse Practitioner 01/02/24 Senior Java Data Architect Relationship Specialty Start Date End Date Linda Redmond, SANDWICH MAKER-HEALTHCARE ADMINISTRATION INTERN [address] [place] [address] PCP - General Nurse Practitioner 01/02/24 Senior Java Data Architect Relationship Specialty Start Date End Date Meir García MD [address] [place] [address] PCP - General Family Medicine 08/31/23 Senior Java Data Architect Relationship Specialty Start Date End Date Linda Redmond, SANDWICH MAKER-HEALTHCARE ADMINISTRATION INTERN [address] [place] [address] PCP - General Nurse Practitioner 01/02/24 Senior Java Data Architect Relationship Specialty Start Date End Date Linda Redmond, SANDWICH MAKER-HEALTHCARE ADMINISTRATION INTERN [address] [place] [address] PCP - General Nurse Practitioner 01/02/24 Senior Java Data Architect Relationship Specialty Start Date End Date Linda Redmond, [facility] [address] [place] [address] PCP - General Nurse Practitioner 01/02/24 Senior Java Data Architect Relationship Specialty Start Date End Date Linda Redmond, [facility] [address] [place] [address] PCP - General Nurse Practitioner 01/02/24 Senior Java Data Architect Relationship Specialty Start Date End Date CarLinda kwon, [facility] [address] [place] [address] PCP - General Nurse Practitioner 01/02/24 Senior Java Data Architect Relationship Specialty Start Date End Date Meir García MD [address] [place] [address] PCP - General Family Medicine 08/31/23 Reason for Visit (unrecogniz ed section and content) Reason Comments Post-op Visit Reason Comments New Patient gallstones Specialty Diagnoses / Procedures Referred By Marcello navas Referred To Contact General Surgery Diagnoses Gall stones Oneil Locke PA [address], [address] [place] [address] Phone: tel: fax: [facility] [address] [facility] [address] [place] [address] Phone: tel: fax: Referral ID Status Reason Start Date Expiration Date Visits Requested Visits Authorized [id number] Pending Review Specialty Services Required 4 01/31/2025 1 1 Reason Comments Post-op 2 weeks Reason Onset Date Comments Med Refill 05/21/2024 FOR RECORDS PERTAINING TO PATIENTS WHO ARE [...] BE BASED ON THE PRIMARY CLINICAL RECORDS. [facility] [employer] [facility]. provides no warranty or guarantee of the accuracy or completeness of information in this document.
[2024-05-30 11:23] LABS: Alanine Aminotransferase 38 U/L (14-59); Albumin Globulin Ratio 0.9; Albumin Level 3.8 g/dL (3.4-5.0); Alkaline Phosphatase 130 U/L (46-116); Anion Gap 13.5; Aspartate Amino Transferase 25 U/L (15-37); BUN Creatinine Ratio 9.4; Bilirubin Total 0.3 mg/dL (0.2-1.0); Calcium 9.3 mg/dL (8.5-10.1); Carbon Dioxide 25.8 mmol/L (21.0-32.0); Chloride 104 mmol/L (98-107); Estimated GFR (African America >60 (>=60 mL/min/1.73m^2); Estimated GFR (Non-African Ame >60 (>=60 mL/min/1.73m^2); Gamma Glutamyl Transpeptidase 383 U/L (8-55); Glucose 87 mg/dL (74-106); Potassium 4.3 mmol/L (3.5-5.1); Sodium 139 mmol/L (136-145); Total Protein 7.8 g/dL (6.4-8.2)
== END 2024-05-30 10:12 | disposition home or self-care (01) ==
LOC: LAB 10:12
PROVIDERS: PCP Nurse Practitioner; Visit Provider Nurse Practitioner
DX: R74.8 Abnormal levels of other serum enzymes (principal)
CPT/HCPCS: 36415; 80053; 82977

== ENCOUNTER 2024-11-30 10:51 | Outpatient (OUT) | payer BC, SELFPAY ==
--- OUTSIDE RECORDS SUMMARY | 2024-11-27 09:00 | XMS_ITS | Encounter Summary ---
Author Organization [facility] Address [address] [place] [address] Care Team Providers Care Machines Technician Name Role Phone Meir García MD Primary Care Provider [phone] Reason for Visit * Reason Comments Annual Exam physical Encounter Details Date Type Department Care Team (Late st Contact Info) Description 11/27/2024 9:00 AM EDT Office Visit [facility] [address] [place] [address] Linda Redmond, HEALTH INFORMATION PROVIDER [address] [place] [address] Encounter for adult wellness visit (Primary Dx); Morbid (severe) obesity due to excess calories (CMS-HCC); Anxiety and depression ; Alkaline phosphatase elevation; Elevated serum gamma-glutamyl transferase level; Encounter for screening mammogram for malignant neoplasm of breast Social History Tobacco Use Types Packs/Day Years Used Date Smoking Tobacco: Never Smokeless Tobacco: Never Alcohol Use Standard Drinks/Week Comments Not Currently 1 (1 standard drink = 0.6 oz pure alcohol) caffine: 1 cup of coffee and 2 cups soda daily Social Connection and Isolat ion Panel [NHANES] Answer Date Recorded In a typical week, how many times do you talk on the phone with family, friends, or neighbors? Once a week 08/24/2023 How often do you get togethe r with friends or relatives? Twice a week 08/24/2023 How often do you attend [facility] or [facility] services? More than 4 times per year 08/24/2023 Do you belong to any clubs o r organizations such as oriental orthodox groups, unions, fraternal or athletic groups, or school groups? Yes 08/24/2023 How often do you attend meet ings of the clubs or organizations you belong to? More than 4 times per year 08/24/2023 Are you , , di vorced, , never , or living with a partner? 08/24/2023 AUDIT-C Answer Date Recorded Q1: How often do you have a drink containing alc ohol? 2-4 times a month 08/24/2023 Q2: How many drinks containi ng alcohol do you have on a typical day when you are drinking? 1 or 2 08/24/2023 Q3: How often do you have si x or more drinks on one occasion? Never 08/24/2023 Overall Financial Resource Strain (CARDIA) Answe r Date Recorded How hard is it for you to pa y for the very basics like food, housing, medical care, and heating? Not hard at all 08/24/2023 [facility] - Occupational Stress Questionnaire Answer Date Recorded Do you feel stress - tense, restless, nervous, or anxious, or unable to sleep at night because your mind is troubled all the time - these days? Rather much 08/24/2023 Exercise Vital Sign Answer Date Recorde d On average, how many days pe r week do you engage in moderate to strenuous exercise (like a brisk walk)? 0 days 08/24/2023 On average, how many minutes do you engage in exercise at this level? 0 min 08/24/2023 Hunger Vital Sign Answer Date Recorded Within the past 12 months, y ou worried that your food would run out before you got the money to buy more. Never true 08/24/19 24 Within the past 12 months, t he food you bought just didn't last and you didn't have money to get more. Never true 08/24/2023 PRAPARE - Transportation Answer Date Re corded In the past 12 months, has l ack of transportation kept you from medical appointments or from getting medications? No 08/03 In the past 12 months, has l ack of transportation kept you from meetings, work, or from getting things needed for daily living? No 08/24/2023 Housing Stability Vital Sign Answer Juan e Recorded In the last 12 months, was t here a time when you were not able to pay the mortgage or rent on time? No 08/24/2023 In the last 12 months, how many places have you lived? 1 08/24/2023 In the last 12 months, was t here a time when you did not have a steady place to sleep or slept in a detention (including now)? No 08/24/2023 Comments No Sex and Gender Information Value Date Recorded Sex Assigned at Not on file Legal Sex Female 11:50 PM EDT Gender Identity Not on file Sexual Orientation Not on file documented as of this encounter Last Filed Vital Signs Vital Sign Reading Time Taken Comments Blood Pressure 106/78 11/27/2024 8:55 AM EDT Pulse 75 11/27/2024 8:55 AM EDT Temperature 36.4 C (97.5 F) 11/27/2024 8:55 AM EDT Respiratory Rate 20 11/27/2024 8:55 AM EDT Oxygen Saturation 98% 11/27/2024 8:55 AM EDT Inhaled Oxygen Concentration - - Weight 120 kg (265 lb 3.2 oz) 11/27/2024 8:55 AM EDT Height - - Body Mass Index 42.8 01/09/2024 9:23 AM EDT documented in this encounter Progress Notes * Linda Redmond NP - 11/27/2024 9:00 AM EDT Images from the original note were not included. Emily Colbert is a 39 y.o. female presents with chief complaint of Annual Exam (physical) HPI: Diet:variety, but not eating or eating too much d/t depression Activity: no exercise Mental Health Concerns: depression/anxiety under the care of psych Any hearing problems: no Any Vision problems: wears glasses Any Hospitalizations in the last year: surgeries Specialist: Psych, GI Concerns: GI: liver fibrosis, is working with them for meds SUBJECTIVE: MEDICATIONS: Current Outpatient Medications Medication Instructions busPIRone (BUSPAR) 7.5 mg, 2 times daily clonazePAM (KLONOPIN) 0.5 mg, 2 times daily Alta 0.05 MG/24HR 1 patch, Transdermal, 2 times weekly estradiol-norethindrone (Combipatch) 0.05-0.14 MG/DAY 1 patch, 2 times weekly Multiple Vitamin (multivitamin) tablet 1 tablet, Daily ALLERGIES: Allergies Allergen Reactions Keflex [Cephalexin] REVIEW OF SYMPTOMS: Review of Systems Constitutional: Positive for fatigue. Negative for appetite change, chills and fever. [...] dizziness, tremors, seizures, syncope and headaches. Psychiatric/Behavioral: Positive for decreased concentration. Negative for behavioral problems, confusion, self-injury and suicidal ideas. The patient is not nervous/anxious. Depression Hematological: Does not bruise/bleed easily. Endocrine: Negative for polydipsia, polyphagia and polyuria. Allergic/Immunologic: Negative for environmental allergies and food allergies. PAST MEDICAL HISTORY Past Medical History: Diagnosis Date Anemia Gastritis Menorrhagia 08/31/2023 Ovarian cyst Past Surgical History: Procedure Laterality [...] in her father. OBJECTIVE: Visit Vitals BP 106/78 (BP Location: Left arm, Patient Position: Sitting, BP Cuff Size: Large adult) Pulse 75 Temp 97.5 ??F (Temporal) Resp 20 Wt 265 lb 3.2 oz SpO2 98% BMI 42.80 kg/m?? OB Status Hysterectomy Smoking Status Never BSA 2.36 m?? Physical Exam Vitals and nursing note reviewed. Constitutional: General: She is not in acute distress. Appearance: Normal appearance. She is obese. She is not ill-appearing. HENT: Head: Normocephalic and atraumatic. Right Ear: Tympanic membrane, ear canal and external ear normal. Left Ear: Tympanic membrane, ear canal and external ear normal. Nose: Rhinorrhea present. No congestion. Mouth/Throat: Mouth: Mucous membranes are moist. Pharynx: No oropharyngeal exudate or posterior oropharyngeal erythema. Eyes: Extraocular Movements: Extraocular movements intact. Conjunctiva/sclera: Conjunctivae normal. Neck: Vascular: No carotid bruit. Cardiovascular: Rate and Rhythm: Normal rate and regular rhythm. Pulses: Normal pulses. Heart sounds: Normal heart sounds. No murmur heard. Pulmonary: Effort: Pulmonary effort is normal. Breath sounds: Normal breath sounds. No wheezing or rhonchi. Abdominal: General: Bowel sounds are normal. There [...] file. Problem List Items Addressed This Visit Anxiety and depression Under the care of psych for this as well as attending counseling Current meds: stephenie, as well as melanie Is going to be having some treatment coming up starting next week No SI Morbid (severe) obesity due to excess calories (CMS-HCC) - Primary Discussed with patient their BMI (actual, verses recommended). We have also discussed lifestyle modifications: attempts to perform physical activity as chronic conditions allow, also to monitor dietary intake: increasing protein/fruits/veggies and lowering carb intake (unless contraindicated). Limit sodas, juices, and sugary drinks. Encounter for screening mammogram for malignant neoplasm of breast Relevant Orders Bilateral screening mammogram Alkaline phosphatase elevation DAVID was negative Has been referred to GI for this Elevated serum gamma-glutamyl transferase level Neg DAVID level Has been referred to GI for this Encounter for adult wellness visit Reviewed Ht/Wt/BMI Recommend eye exam yearly Recommend dental exams twice a year Balance work/leisure activities Exercises is recommended most days of the week (appropriate as chronic conditions allow) Follow up yearly and prn * Linda Redmond NP - 11/27/2024 6:13 AM EDTAssociated Problem(s): Encounter for adult wellness visit Reviewed Ht/Wt/BMI Recommend eye exam yearly Recommend dental exams twice a year Balance work/leisure activities Exercises is recommended most days of the week (appropriate as chronic conditions allow) Follow up yearly and prn * Linda Redmond NP - 11/27/2024 6:12 AM EDTAssociated Problem(s): Anxiety and depression Under the care of psych for this as well as attending counseling Current meds: klonopin, as well as buspar Is going to be having some treatment coming up starting next week No SI * Linda Redmond NP - 11/27/2024 6:12 AM EDTAssociated Problem(s): Alkaline phosphatase elevation DAVID was negative Has been referred to GI for this * Linda Redmond NP - 11/27/2024 6:11 AM EDTAssociated Problem(s): Elevated serum gamma-glutamyl transferase level Neg DAVID level Has been referred to GI for this * Linda Redmond NP - 11/27/2024 6:11 AM EDTAssociated Problem(s): Iron deficiency anemia Hx of this in the past, * Linda Redmond NP - 11/27/2024 6:10 AM EDTAssociated Problem(s): Morbid (severe) obesity due to excess calories ([facility]) Discussed with patient their BMI (actual, verses recommended). We have also discussed lifestyle modifications: attempts to perform physical activity as chronic conditions allow, also to monitor dietary intake: increasing protein/fruits/veggies and lowering carb intake (unless contraindicated). Limit sodas, juices, and sugary drinks. documented in this encounter Plan of Treatment Upcoming Encounters Date Type Department Care Team (Late st Contact Info) Description 05/30/2025 9:00 AM EST [facility] Visit [facility] [address] [place] [address] Linda Redmond NP [address] [place] [address] 12/02/2025 10:00 AM EDT Office Visit [facility] [address] [place] [address] Linda Redmond NP [address] [place] [address] Scheduled Orders Name Type Priority Associated Diagnoses Orde r Schedule Bilateral screening mammogram Imaging Routine Encounter for screening mammogram for malignant neoplasm of breast Expected: 11/27/2024 (Approximate), Expires: 01/27/2026 documented as of this encounter Visit Diagnoses Diagnosis Encounter for adult wellness visit- Primary Morbid (severe) obesity due to excess calories ([facility]-H[facility]) Anxiety and depression Alkaline phosphatase elevation Other nonspecific abnormal serum enzyme levels Elevated serum gamma-glutamyl transferase level Encounter for screening mammogram for malignant neoplasm of breast documented in this encounter Care Teams Machines Technician Relationship Specialty Start Date End Date Meir García MD [address] [place] [address] PCP - General Family Medicine 08/31/23 documented as of this encounter
--- OUTSIDE RECORDS SUMMARY | 2024-11-30 10:55 | XMS_ITS | Clinical Summary ---
Author Organization [employer] [facility] [employer] Address [id number] [address] [place] [address] Care Team Providers Care Plating Department Helper Name Role Phone Linda Redmond APRN-EVP MANAGING DIRECTOR Primary Care Provider Allergies Active Allergy Reactions Criticality Noted Date Comments Cephalexin Syncope Medium 12/21/2023 Medications busPIRone (BUSPAR) 15 mg tabletIndicatio ns:generalized anxiety disorder Take 0.5 tablets (7.5 mg total) by mouth in the morning and 0.5 tablets (7.5 mg total) before bedtime. Indications: repeated episodes of anxiety. Active clonazePAM (KlonoPIN) 0.5 mg tablet Take 1 tablet (0.5 mg total) by mouth as needed in the morning and 1 tablet (0.5 mg total) as needed at noon and 1 tablet (0.5 mg total) as needed in the evening for anxiety. Active multivitamin-Ca -iron-minerals tablet Take 1 tablet by mouth in the morning. Active cholecalciferol , vitamin D3, (VITAMIN D3) 2,000 units capsuleIndicati ons:prevention of vitamin D deficiency Take 1 capsule (2,000 Units total) by mouth in the morning. Indications: prevention of vitamin D deficiency. Active estradioL (VIVELLE-DOT) 0.05 mg/24 hrIndications:M enopause Place 1 patch on the skin 2 (two) times a week. 8 patch 12 5 Active Active Problems Problem Noted Date Diagnosed Date Pelvic mass 12/21/2023 Pelvic pain 12/21/2023 Preop testing 12/21/2023 Immunizations Immunization Administration Dates Next Due COVID-19, mRNA, LNP-S, PF, 100mcg/0.5mL Dose ,07/19/2020 Family History Medical History Relation Name Comments Anesthesia problems Neg Hx Social History Tobacco Use Types Packs/Day Years Used Date Smoking Tobacco: Never Smokeless Tobacco: Never Tobacco Cessation:Counseling Given: Not Answered Alcohol Use Standard Drinks/Week Comments Yes 0 (1 standard drink = 0.6 oz pur e alcohol) Hunger Screening Answer Date Recorded Within the past 12 months we worried whether our food would run out before we got money to buy more. Never True 03/22/2024 Within the past 12 months th e food we bought just didn't last and we didn't have money to get more. Never True 03/22/2024 Comments No Sex and Gender Information Value Date Recorded Sex Assigned at Not on file Legal Sex Female 7:59 AM EDT Gender Identity Not on file Sexual Orientation Not on file Last Filed Vital Signs Vital Sign Reading Time Taken Comments Blood Pressure 118/64 08/01/2024 9:35 AM EDT Pulse 72 08/01/2024 9:35 AM EDT Temperature 36.7 C (98 F) 05/02/2024 9:22 AM EST Respiratory Rate 16 08/01/2024 9:35 AM EDT Oxygen Saturation 98% 08/01/2024 9:35 AM EDT Inhaled Oxygen Concentration - - Weight 117 kg (258 lb) 08/01/2024 9:27 AM EDT Height 167.6 cm (5' 5.98 ) 08/01/2024 9:27 AM ED T Body Mass Index 41.66 08/01/2024 9:27 AM EDT Plan of Treatment Health Maintenance Due Date Last Done Comments DTaP,Tdap and Td Vaccines (5 - Tdap) 08/29/1994 05/28/1985, 03/20/1984, 1983, Additional history exists Depression Screening 1995 Adult BMI Follow Up Plan 08/29/2001 COVID-19 Vaccine (3 - 2023-2 5 season) 2023 08/16/2020, 07/19/2020 Influenza Vaccine 12/03/2024 Adult BMI Screening 08/01/2025 08/01/2024 Tobacco Screening 08/01/2025 08/01/2024 Medical Devices Not on file Insurance [employer] Care Teams Plating Department Helper Relationship Specialty Start Date End Date Linda Redmond, WRIST LINER-EVP MANAGING DIRECTOR [address] [place] [address] PCP - General Nurse Practitioner 01/02/24
--- OUTSIDE RECORDS SUMMARY | 2024-11-30 10:55 | XMS_ITS | Encounter Summary ---
Author Organization [employer] Address [id number] [address] [place] [address] Care Team Providers Care Network Security Officer Name Role Phone Linda Redmond APRN-WELT MAKER Primary Care Provider Reason for Referral * Diagnostic Imaging (Routine) - Pending Review Specialty Diagnoses / Procedures Referred By Contac t Referred To Contact Radiology Diagnoses Pain Procedures CT abdomen and pelvis with contrast [facility] [address] [place] [address] Phone: tel: fax: Referral ID Status Reason Start Date Expiration Date V isits Requested Visits Authorized [id number] Pending Review 03/19/2024 03/19/2025 1 1 Encounter Details Date Type Department Care Team (Late st Contact Info) Description 03/19/2024 Orders Only [facility] [place] [address] Transcribe, Orders Support User Pain (Primary Dx) Social History Tobacco Use Types Packs/Day Years Used Date Smoking Tobacco: Never Smokeless Tobacco: Never Alcohol Use Standard Drinks/Week Comments Yes 0 (1 standard drink = 0.6 oz pur e alcohol) social Hunger Screening Answer Date Recorded Within the [...] on file documented as of this encounter Plan of Treatment Not on file documented as of this encounter Results * Ultrasound abdomen limited (01/11/2024 9:15 AM EDT) us Scanning Provider External IMG US ORDERABLES Fin al Result * CT abdomen and pelvis with contrast (12/16/2023 9:35 AM EDT) us Scanning Provider External IMG CT ORDERABLES Fin al Result documented in this encounter Visit Diagnoses Diagnosis Pain- Primary Generalized pain documented in this encounter Care Teams Network Security Officer Relationship Specialty Start Date End Date Linda Redmond, WAISTLINE JOINER-WELT MAKER [address] [place] [address] PCP - General Nurse Practitioner 01/02/24 documented as of this encounter
--- OUTSIDE RECORDS SUMMARY | 2024-11-30 10:56 | XMS_ITS | Clinical Summary ---
Author Organization [facility] Address [address] [place] [address] Care Team Providers Care Oiler And Greaser Name Role Phone Pcp, No Primary Care Provider [phone] Social History Tobacco Use Types Packs/Day Years Used Date Smoking Tobacco: Never Assessed Comments Unknown Sex and Gender Information Value Date Recorded Sex Assigned at Not on file Legal Sex Female 11:14 AM EDT Gender Identity Not on file Sexual Orientation Not on file Plan of Treatment Health Maintenance Due Date Last Done Comments MMR Vaccine (1 of 1 - Standa rd series) 08/29/1984 DTaP/Tdap/Td Vaccine (1 - Tdap) 08/29/1990 Varicella Vaccine (1 of 2 - 13+ 2-dose series) 08/29/1996 Hepatitis B Vaccine (1 of 3 - 19+ 3-dose series) 08/29/2002 HPV Vaccine (1 - 3-dose SCDM series) 08/29/2010 Mammogram 2023 COVID-19 Vaccine (1 - 2023-2 5 season) 2023 Influenza Vaccine (#1) 2024 HIB Vaccine Aged Out No longer eligi ble based on patient's age to complete this topic Hepatitis A Vaccine Aged Out No longe r eligible based on patient's age to complete this topic IPV Vaccine Aged Out No longer eligi ble based on patient's age to complete this topic Meningococcal ACWY Vaccine Aged Out N o longer eligible based on patient's age to complete this topic Meningococcal B Vaccine Aged Out No l onger eligible based on patient's age to complete this topic Pneumococcal Vaccine Aged Out No long er eligible based on patient's age to complete this topic RSV, Nirsevimab Immunization Aged Out No longer eligible based on patient's age to complete this topic Rotavirus Vaccine Aged Out No longer eligible based on patient's age to complete this topic Care Teams Oiler And Greaser Relationship Specialty Start Date End Date Pcp, No [place] [address] 194- PCP - General 01/02/18
--- OUTSIDE RECORDS SUMMARY | 2024-11-30 10:56 | XMS_ITS | Encounter Summary ---
Author Organization [facility] Address [address] [place] [address] Care Team Providers Care Flower Shop Manager Name Role Phone Meir García MD Primary Care Provider [phone] Encounter Details Date Type Department Care Team (Late st Contact Info) Description 01/11/2024 Orders Only [facility] [address] [place] [address] Linda Redmond, PATIENT ADMITTING REPRESENTATIVE [address] [place] [place] [address] Social History Tobacco Use Types Packs/Day Years [...] week 08/24/2023 How often do you attend chur ch or roman catholic services? More than 4 times per year 08/24/2023 Do you belong to any clubs o r organizations such as zoroastrianism groups, unions, fraternal or athletic groups, or [...] and heating? Not hard at all 08/24/2023 [facility] of Occupat ional Health - Occupational Stress [...] place to sleep or slept in a group home (including now)? No 08/24/2023 Comments No Sex and Gender Information Value Date Recorded Sex Assigned at Not on file Legal Sex Female 11:50 PM EDT Gender Identity Not on file Sexual Orientation Not on file documented as of this encounter Plan of Treatment Upcoming Encounters Date Type Department Care Team (Late st Contact Info) Description 05/30/2025 9:00 AM EST Office Visit [facility] [address] [place] [place] [address] Linda Redmond NP [address] [place] [address] 12/02/2025 10:00 AM EDT Office Visit [facility] [address] [place] [place] [address] Linda Redmond NP [address] [place] [place] [phone] documented as of this encounter Procedures Procedure Name Priority Date/Time Associated Diagnosis Comments SCANNED LABS Routine 01/11/2024 10:33 AM EDT documented in this encounter Results * SCANNED LABS (01/11/2024 10:33 AM EDT) Linda Redmond PATIENT ADMITTING REPRESENTATIVE LAB CHG PERFORMABLES Final Resu lt documented in this encounter Visit Diagnoses Not on filedocumented in this encounter Care Teams Flower Shop Manager Relationship Specialty Start Date End Date Meir García MD [address] [place] [place] [address] PCP - General Family Medicine 08/31/23 documented as of this encounter
--- OUTSIDE RECORDS SUMMARY | 2024-11-30 10:56 | XMS_ITS | Encounter Summary ---
Author Organization [facility] Address [address] [place] [address] Care Team Providers Care Yardage Control Clerk Name Role Phone Meir García MD Primary Care Provider [phone] Encounter Details Date Type Department Care Team (Late st Contact Info) Description 01/11/2024 Clinisync Result Encounter [facility] External Department Unsolicited Linda Redmond, SAULO [address] [place] [address] Social History Tobacco Use Types Packs/Day Years [...] often do you attend chur ch or worship services? More than 4 times per year 08/24/2023 Do you belong to any clubs o r organizations such as baptism groups, unions, fraternal or athletic groups, or [...] and heating? Not hard at all 08/24/2023 [facility] of Occupat ional Health - Occupational Stress [...] place to sleep or slept in a custodial (including now)? No 08/24/2023 Comments No Sex and Gender Information Value Date Recorded Sex Assigned at Not on file Legal Sex Female 11:50 PM EDT Gender Identity Not on file Sexual Orientation Not on file documented as of this encounter Plan of Treatment Upcoming Encounters Date Type Department Care Team (Late st Contact Info) Description 05/30/2025 9:00 AM EST Office Visit [facility] [address] [place] [address] Linda Redmond NP [address] [place] [address] 12/02/2025 10:00 AM EDT Office Visit [facility] [address] [place] [address] Linda Redmond NP [address] [place] [address] documented as of this encounter Procedures Procedure Name Priority Date/Time Associated Diagnosis Comments US RIGHT UPPER QUADRANT 01/11/2024 10:25 AM EDT documented in this encounter Results * US RIGHT UPPER QUADRANT (01/11/2024 10:25 AM EDT) Anatomical Region Laterality Modality Other 01/11/2024 10:2 5 AM EDT Narrative 01/11/2024 10:28 AM EDT The [address] [address] Ultrasound Report Signed Patient: EMILY COLBERT MR#: [id number] : 1985 Acct:[id number] Age/Sex: 38 / F ADM Date: 01/11/24 Loc: US Attending Dr: Linda Redmond NP Ordering Physician: Linda Redmond NP Date of Service: 01/11/24 Procedure(s): US right upper quadrant Accession Number(s): [id number] cc: Linda Redmond NP The [place] [address] Patient Name: EMILY COLBERT MRN: [id number] date: 1985 Sex: F Assigned Patient Location: US Current Patient Location: US Accession/Order Number: [id number] Exam Date: 01/11/2024 09:00 Report Date: 01/11/2024 10:25 At the request of: LINDA REDMOND Procedure: US right upper quadrant EXAMINATION: US right upper quadrant HISTORY: Alkaline Phosphate Elevation, Elevated Serum gamma glutamyl ; abnormal liver lab values COMPARISON: CT abdomen pelvis 12/16/2023 TECHNIQUE: Transabdominal evaluation of the right upper quadrant. FINDINGS: LIVER: Slightly increased echogenicity suggestive of fatty infiltration.. Color Doppler demonstrates patent hepatic veins. PORTAL VEIN: Duplex Doppler demonstrates normal hepatopetal flow pattern with flow velocity averaging 37 cm/s. GALLBLADDER: Numerous 5 mm stones partially filling the gallbladder. 2 stones adherent to the anterior wall versus polyps, 4 mm. No wall thickening or free fluid. Negative sonographic Longo's sign. BILIARY: No abnormal dilation or stones. Common bile duct diameter is within normal limits. PANCREAS: No visible mass, abnormal atrophy, or duct dilation. KIDNEY: No hydronephrosis. No visible mass or stones. Size: 10.2 x 5.0 x 5.2 cm US/US right upper quadrant IMPRESSION: 1. Cholelithiasis and possible gallbladder polyps. 2. Mild fatty infiltration of liver. Electronically authenticated by: TODD DORANTES Date: 01/11/2024 10:25 Dictated By: Todd Dorantes M.D. Signed By: 01/11/24 1028 DD/ 1025 TD/TT: Science Consultant: Procedure Note Radiology, Radiologist, MD - 01/11/2024 [place] [address] Ultrasound Report Signed Patient: ARSALAN COLBERT#: [id number] : 1985Acct:[id number] Age/Sex: 38 / FADM Date: 01/11/24 Loc: US Attending Dr: Linda Redmond NP Ordering Physician: Linda Redmond NP Date of Service: 01/11/24 Procedure(s): US right upper quadrant Accession Number(s): [id number] cc: Linda Redmond NP [address] [address] Patient Name: EMILY COLBERT MRN: [id number] date: 1985 Sex: F Assigned Patient Location: Current Patient Location: US Accession/Order Number: [id number] Exam Date: 01/11/2024 09:00 Report Date: 01/11/2024 10:25 At the request of: LINDA REDMOND Procedure: US right upper quadrant EXAMINATION: US right upper quadrant HISTORY: Alkaline Phosphate Elevation, Elevated Serum gamma glutamyl ; abnormal liver lab values COMPARISON: CT abdomen pelvis 12/16/2023 TECHNIQUE: Transabdominal evaluation of the right upper quadrant. FINDINGS: LIVER: Slightly increased echogenicity suggestive of fatty infiltration.. Color Doppler demonstrates patent hepatic veins. PORTAL VEIN: Duplex Doppler demonstrates normal hepatopetal flow patternwith flow velocity averaging 37 cm/s. GALLBLADDER: Numerous 5 mm stones partially filling the gallbladder. 2stones adherent to the anterior wall versus polyps, 4 mm. No wall thickening orfree fluid. Negative sonographic Longo's sign. BILIARY: No abnormal dilation or stones. Common bile duct diameter iswithin normal limits. PANCREAS: No visible mass, abnormal atrophy, or duct dilation. KIDNEY: No hydronephrosis. No visible mass or stones. Size: 10.2 x 5.0 x5.2 cm US/US right upper quadrant IMPRESSION: 1. Cholelithiasis and possible gallbladder polyps. 2. Mild fatty infiltration of liver. Electronically authenticated by: TODD DORANTES Date: 01/11/2024 10:25 Dictated By: Todd Dorantes M.D. Signed By:01/11/24 1028 DD/ 1025 TD/TT: Science Consultant: Linda Redmond NP [facility] Final Result documented in this encounter Visit Diagnoses Not on filedocumented in this encounter Care Teams Yardage Control Clerk Relationship Specialty Start Date End Date Meir García MD [address] [place] [address] PCP - General Family Medicine 08/31/23 documented as of this encounter
--- OUTSIDE RECORDS SUMMARY | 2024-11-30 10:56 | XMS_ITS | Encounter Summary ---
Author Organization [facility] Address [address] [facility] [place] [address] Care Team Providers Care Proofsheet Corrector Name Role Phone Meir García MD Primary Care Provider [phone] Encounter Details Date Type Department Care Team (Late st Contact Info) Description 09/19/2023 Orders Only [facility] [address] [place] [address] Linda Redmond, SAULO [address] [place] [address] Social History Tobacco Use Types Packs/Day Years Used Date Smoking Tobacco: Never Smokeless Tobacco: Never Alcohol Use Standard Drinks/Week Comments Yes 1 (1 standard drink = 0.6 oz [...] often do you attend chur ch or gnosticism services? More than 4 times per year 08/24/2023 Do you belong to any clubs o r organizations such as taoist groups, unions, fraternal or athletic groups, or [...] and heating? Not hard at all 08/24/2023 [facility] [place] of Occupat ional Health - Occupational Stress [...] place to sleep or slept in a fci (including now)? No 08/24/2023 Comments Unknown Sex and Gender Information Value Date Recorded Sex Assigned at Not on file Legal Sex Female 11:50 PM EDT Gender Identity Not on file Sexual Orientation Not on file documented as of this encounter Plan of Treatment Upcoming Encounters Date Type Department Care Team (Late st Contact Info) Description 05/30/2025 9:00 AM EST Office Visit [facility] [address] [place] [address] Linda Redmond NP [address] [place] [address] 12/02/2025 10:00 AM EDT Office Visit [facility] [address] [place] [address] Linda Redmond NP [address] [place] [address] documented as of this encounter Procedures Procedure Name Priority Date/Time Associated Diagnosis Comments US PELVIS & TRANSVAG Routine 09/19/2023 8:00 AM EDT MM SCREENING MAMM WITH 3D COOPER - US AND ADDITIONAL Routine 09/16/2023 8:04 AM EDT documented in this encounter Results * US PELVIS & TRANSVAG (09/19/2023 8:00 AM EDT) Anatomical Region Laterality Modality Radiographic Oralia ging us Linda Redmond TOP LIFT NAILER IMG XR PROCEDURES Final Result * MM SCREENING MAMM WITH 3D COOPER - US AND ADDITIONAL (09/16/2023 8:04 AM EDT) Anatomical Region Laterality Modality Radiographic Oralia ging us Linda Redmond TOP LIFT NAILER IMG XR PROCEDURES Final Result documented in this encounter Visit Diagnoses Not on filedocumented in this encounter Care Teams Proofsheet Corrector Relationship Specialty Start Date End Date Meir García MD [address] [place] [phone] PCP - General Family Medicine 08/31/23 documented as of this encounter
--- OUTSIDE RECORDS SUMMARY | 2024-11-30 10:56 | XMS_ITS | Encounter Summary ---
Author Organization [facility] Address [address] [place] [address] Care Team Providers Care Sexual Assault Nurse Name Role Phone Meir García MD Primary Care Provider [phone] Encounter Details Date Type Department Care Team (Late st Contact Info) Description 09/19/2023 Clinisync Result Encounter [facility] External Department Unsolicited Linda Redmond, SAULO [address] [place] [address] Social History Tobacco Use Types Packs/Day Years [...] often do you attend chur ch or taoist services? More than 4 times per year 08/24/2023 Do you belong to any clubs o r organizations such as gnosticism groups, unions, fraternal or athletic groups, or [...] and heating? Not hard at all 08/24/2023 [facility] of Occupat ional Health - Occupational [...] place to sleep or slept in a [facility] (including now)? No 08/24/2023 Comments Unknown Sex and Gender Information Value Date Recorded Sex Assigned at Not on file Legal Sex Female 11:50 PM EDT Gender Identity Not on file Sexual Orientation Not on file documented as of this encounter Plan of Treatment Upcoming Encounters Date Type Department Care Team (Late st Contact Info) Description 05/30/2025 9:00 AM EST Office Visit [facility] [address] [place] [address] Linda Redmond, SAULO [address] [place] [address] 12/02/2025 10:00 AM EDT Office Visit [facility] [address] [place] [address] Linda Redmond NP [address] [place] [address] documented as of this encounter Procedures Procedure Name Priority Date/Time Associated Diagnosis Comments US PELVIS W/ TRANSVAGINAL 09/19/2023 7:45 AM EDT documented in this encounter Results * US PELVIS W/ TRANSVAGINAL (09/19/2023 7:45 AM EDT) Anatomical Region Laterality Modality Other 09/19/2023 7:45 AM EDT Narrative 09/19/2023 7:48 AM EDT The [address] [address] Ultrasound Report Signed Patient: EMILY YOST MR#: [id number] : 1985 Acct:[id number] Age/Sex: 38 / F ADM Date: 09/16/23 Loc: US Attending Dr: Linda Redmond SENIOR CLINICAL DATA ANALYST Ordering Physician: Linda Redmond NP Date of Service: 09/16/23 Procedure(s): US pelvis w/ transvaginal Accession Number(s): [id number] cc: Linda Redmond NP The [place] [address] Patient Name: EMILY YOST MRN: [id number] date: 1985 Sex: F Assigned Patient Location: Current Patient Location: Accession/Order Number: [id number] Exam Date: 09/16/2023 10:15 Report Date: 09/19/2023 07:45 At the request of: LINDA REDMOND Procedure: US pelvis w/ transvaginal EXAMINATION: US pelvis w/ transvaginal HISTORY: pelvic pain and bloating COMPARISON: No relevant comparison available. TECHNIQUE: Transabdominal and/or transvaginal sonographic examination was performed as indicated by examination type. FINDINGS: UTERUS: Hysterectomy. RIGHT OVARY: Normal size and appearance. Duplex Doppler demonstrates normal waveform and flow; resistive index 0.5. Ovary size: 4.5 x 2.3 x 2.8 cm LEFT OVARY: Complex, avascular cystic structures with internal debris arising from within/from left ovary, largest is 7.0 cm. Duplex Doppler demonstrates normal waveform and flow; resistive index 0.5. Ovary size: 10.3 x 5.6 x 6.3 cm CUL-DE-SAC: Unremarkable. No significant free fluid. BLADDER: Unremarkable. OTHER: None. US/US pelvis w/ transvaginal IMPRESSION: 1. Several complex cysts arising from the left ovary, possibly endometriomas. Follow-up ultrasound evaluation of the pelvis in 6 weeks is recommended to document stability versus change. Electronically authenticated by: TODD DORANTES Date: 09/19/2023 07:45 Dictated By: Todd Dorantes M.D. Signed By: 09/19/2348 DD/ TD/TT: Art Psychotherapist: Procedure Note Radiology, Radiologist, MD - 09/19/2023 [place] [address] Ultrasound Report Signed Patient: EMILY YOST RMR#: [id number] : 1985Acct:[id number] Age/Sex: 38 / FADM Date: 09/16/23 Loc: US Attending Dr: Linda Redmond NP Ordering Physician: Linda Redmond NP Date of Service: 09/16/23 Procedure(s): US pelvis w/ transvaginal Accession Number(s): [id number] cc: Linda Redmond NP [place] [id number] Patient Name: EMILY YOST MRN: [facility]:[id number] date: 1985 Sex: F Assigned Patient Location: Current Patient Location: Accession/Order Number: [id number] Exam Date: 09/16/2023 10:15 Report Date: 09/19/2023 07:45 At the request of: LINDA REDMOND Procedure: US pelvis w/ transvaginal EXAMINATION: US pelvis w/ transvaginal HISTORY: pelvic pain and bloating COMPARISON: No relevant comparison available. TECHNIQUE: Transabdominal and/or transvaginal sonographic examination was performed as indicated by examination type. FINDINGS: UTERUS: Hysterectomy. RIGHT OVARY: Normal size and appearance. Duplex Doppler demonstratesnormal waveform and flow; resistive index 0.5. Ovary size: 4.5 x 2.3 x 2.8 cm LEFT OVARY: Complex, avascular cystic structures with internal debrisarising from within/from left ovary, largest is 7.0 cm. Duplex Dopplerdemonstrates normal waveform and flow; resistive index 0.5. Ovary size: 10.3 x 5.6 x6.3 cm CUL-DE-SAC: Unremarkable. No significant free fluid. BLADDER: Unremarkable. OTHER: None. US/US pelvis w/ transvaginal IMPRESSION: 1. Several complex cysts arising from the left ovary, possiblyendometriomas. Follow-up ultrasound evaluation of the pelvis in 6 weeks is recommended to document stability versus change. Electronically authenticated by: TODD DORANTES Date: 09/19/2023 07:45 Dictated By: Todd Dorantes M.D. Signed By:09/19/23 0748 DD/ TD/TT: Art Psychotherapist: us Linda Redmond SENIOR CLINICAL DATA ANALYST [facility] Final Result documented in this encounter Visit Diagnoses Not on filedocumented in this encounter Care Teams Sexual Assault Nurse Relationship Specialty Start Date End Date Meir García MD [address] [place] [address] PCP - General Family Medicine 08/31/23 documented as of this encounter
--- OUTSIDE RECORDS SUMMARY | 2024-11-30 10:56 | XMS_ITS | Clinical Summary ---
Author Organization [facility] Healthcare Address [address] [place] [address] Care Team Providers Care Lathe Scalper Operator Name Role Phone Meir García MD Primary Care Provider [phone] Allergies Active Allergy Reactions Criticality Noted Date Comments Cephalexin 08/24/2022 Medications busPIRone (Buspar) 15 MG tablet Take 7.5 mg by mouth in the morning and 7.5 mg before bedtime. Active clonazePAM (KlonoPIN) 0.5 MG tablet Take 0.5 mg by mouth in the morning and 0.5 mg before bedtime. Pt takes 0.5mg in the morning and two 0.5mg (1mg) before bedtime. Active Multiple Vitamin (multivitamin) tablet Take 1 tablet by mouth in the morning. Active Alta 0.05 MG/24HR Place 1 patch on the skin 2 (two) times a week Active estradiol-noret hindrone (Combipatch) 0.05-0.14 MG/DAY Place 1 patch on the skin 2 (two) times a week 11/28/19 25 Discontinu ed(Therapy completed) Active Problems Problem Noted Date Diagnosed Date Encounter for adult wellness visit 11/27/2024 Assessment & Plan (11/27/2024 6:13 AM EDT): Reviewed Ht/Wt/BMI Recommend eye exam yearly Recommend dental exams twice a year Balance work/leisure activities Exercises is recommended most days of the week (appropriate as chronic conditions allow) Follow up yearly and prn Calculus of gallbladder with out cholecystitis without obstruction 01/09/2024 Assessment & Plan (05/30/2024 9:55 AM EST): Was evaluated with general surgery in 03/27 Was supposed to have surgery, was sick and had to cancel However surgeon was not sure either about surgery since no pain ALK Phos and GGT elevation may be related Assessment & Plan (02/23/2024 11:13 AM EST): Has appt on 03/19/24 w general surgeon No acute pain or NV at this time Assessment & Plan (01/09/2024 10:02 AM EDT): asymptomatic Nephrolithiasis 01/09/2024 Assessment & Plan (01/09/2024 10:03 AM EDT): Per CT findings Pelvic mass 12/21/2023 Body mass index (BMI) 40.0-44.9, adult Elevated serum gamma-glutamyl transferase level 12/13/2023 Assessment & Plan (11/27/2024 6:11 AM EDT): Neg DAVID level Has been referred to GI for this Assessment & Plan (05/30/2024 9:55 AM EST): Neg DAVID level We did speak about possible recheck of labs a few months after hyst If still elevated will send to GI Assessment & Plan (02/23/2024 11:14 AM EST): Repeat labs and add GGT and DAVID level Assessment & Plan (01/09/2024 10:02 AM EDT): Reviewed CT scan findings Check liver US Recheck GGT I did discuss with Ej García labs and symptoms Agrees with POC Assessment & Plan (12/14/2023 10:43 AM EDT): Will order a CT scan, to r/o liver pathology Unsure if recent RAIL ENGINEER procedure is effecting this or not Left ovarian cyst 10/03/2023 Assessment & Plan (01/09/2024 10:01 AM EDT): Cont with RAIL ENGINEER for surgery Alkaline phosphatase elevation 09/29/2023 Assessment & Plan (11/27/2024 6:12 AM EDT): DAVID was negative Has been referred to GI for this Assessment & Plan (05/30/2024 9:55 AM EST): DAVID was negative We did talk about possible recheck of labs a few months after hyst If still elevated will send to GI Assessment & Plan (02/23/2024 11:15 AM EST): Recheck labs, GGT and DAVID Assessment & Plan (01/09/2024 10:00 AM EDT): Will order liver US Check GGT Assessment & Plan (12/14/2023 10:41 AM EDT): No identifiable cause Assessment & Plan (09/29/2023 10:37 AM EDT): Recheck in 4 weeks, order given Mixed hyperlipidemia 09/29/2023 Assessment & Plan (09/29/2023 10:37 AM EDT): Dietary changes and we will recheck in 6 months Anxiety and depression 08/31/2023 Assessment & Plan (11/27/2024 9:26 AM EDT): Under the care of psych for this as well as attending counseling Current meds: klonopin, as well as buspar Is going to be having some treatment coming up starting next week No SI Assessment & Plan (05/30/2024 9:55 AM EST): Under the care of psych for this as well as attending counseling Current meds: klonopin, as well as buspar Assessment & Plan (09/29/2023 10:36 AM EDT): Cont with psych Assessment & Plan (08/31/2023 10:00 AM EDT): Cont with psych and counseling Bile reflux gastritis 08/31/2023 Diarrhea 08/31/2023 Morbid (severe) obesity due to excess calories 0 08/31/2023 Assessment & Plan (11/27/2024 6:10 AM EDT): Discussed with patient their BMI (actual, verses recommended). We have also discussed lifestyle modifications: attempts to perform physical activity as chronic conditions allow, also to monitor dietary intake: increasing protein/fruits/veggies and lowering carb intake (unless contraindicated). Limit sodas, juices, and sugary drinks. Assessment & Plan (05/30/2024 6:30 AM EST): Discussed with patient their BMI (actual, verses recommended). We have also discussed lifestyle modifications: attempts to perform physical activity as chronic conditions allow, also to monitor dietary intake: increasing protein/fruits/veggies and lowering carb intake (unless contraindicated). Limit sodas, juices, and sugary drinks. Assessment & Plan (02/23/2024 11:14 AM EST): Discussed with patient their BMI (actual, verses recommended). We have also discussed lifestyle modifications: attempts to perform physical activity as chronic conditions allow, also to monitor dietary intake: increasing protein/fruits/veggies and lowering carb intake (unless contraindicated). Limit sodas, juices, and sugary drinks. Assessment & Plan (09/29/2023 10:36 AM EDT): Discussed with patient their BMI (actual, verses recommended). We have also discussed lifestyle modifications: attempts to perform physical activity as chronic conditions allow, also to monitor dietary intake: increasing protein/fruits/veggies and lowering carb intake (unless contraindicated). Limit sodas, juices, and sugary drinks. Also discussed oral medications that can be utilized for weight loss, as well as GLP 1. She does not have any contraindications. She will think about this. Wants to focus of large cyst Recommend 1800 calorie diet, and fu in 8 weeks Assessment & Plan (08/31/2023 9:59 AM EDT): Check labs Fu in 4 weeks and will work on plan to aid in weight loss Unspecified dyspareunia 08/31/2023 Visual impairment 08/31/2023 Iron deficiency anemia 08/31/2023 Assessment & Plan (11/27/2024 6:11 AM EDT): Hx of this in the past, Assessment & Plan (09/29/2023 10:36 AM EDT): resolved Assessment & Plan (08/31/2023 9:59 AM EDT): Check labs Encounter for screening mamm ogram for malignant neoplasm of breast 08/31/2023 Pelvic pain 08/31/2023 Assessment & Plan (08/31/2023 9:59 AM EDT): Never fu after hyst, has hx of ovarian cyst Will check pelvic US and pt has eduardo's number and is encouraged to call and schedule a fu appt Bloating symptom 08/31/2023 Assessment & Plan (08/31/2023 10:00 AM EDT): Pelvic US Resolved Problems Problem Noted Date Diagnosed Date Resolved Date Subacute maxillary sinusitis 02/23/2024 05/30/2024 Assessment & Plan (02/23/2024 11:14 AM EST): Will prescribe doxy 100mg BID for 10 days Fluids, fu if not better Dysmenorrhea 08/31/2023 12/13/2023 History of hysterectomy 08/31/2023 02/2 09/2024 Menorrhagia 08/31/2023 05/30/2024 Encounters Date Type Department Care Team Description 11/27/2024 9:00 AM EDT Office Visit [facility] [address] [place] [address] Linda Redmond, SAULO Encounter for adult wellness visit (Primary Dx); Morbid (severe) obesity due to excess calories ([facility]); Anxiety and depression ; Alkaline phosphatase elevation; Elevated serum gamma-glutamyl transferase level; Encounter for screening mammogram for malignant neoplasm of breast 11/27/2024 Telephone [facility] [address] [place] [address] Linda Redmond NP from Last 3 Months Immunizations Immunization Administration Dates Next Due DTP 05/28/1985,03/20/1984,1983 ,1983 Hep B, Adolescent or Pediatric 11/15/2001 HiB, unspecified 12/24/1985 MMR 05/28/1985 Meningococcal MPSV4 11/16/2001 OPV 05/28/1985,1983,1983 Family History Medical History Relation Name Comments Cancer Brother Praful Cancer Father Tyler Lymphoma Father Tyler Cancer Maternal Grandmother Veronika Diabetes Maternal Grandmother Veronika Diabetes Mother Josiane Heart disease Mother Josiane Heart failure Mother Josiane Diabetes Mother's Brother Barrie Kidney cancer Son Relation Name Status Comments Brother Praful Daughter Alive Father Tyler Maternal Grandmother Veronika Mother Josiane Alive Mother's Brother Barrie Son Social History Tobacco Use Types Packs/Day Years [...] 08/24/2023 How often do you attend chur or uatsdin services? More than 4 times per year 08/24/2023 Do you belong to any clubs o r organizations such as advent groups, unions, fraternal or athletic groups, or [...] and heating? Not hard at all 08/24/2023 [facility] - Occupational Stress Questionnaire Answer Date Recorded [...] 3.2 oz) 11/27/2024 8:55 AM EDT Height 167.6 cm (5' 6 ) 01/09/2024 9:23 AM EDT Body Mass Index 42.8 01/09/2024 9:23 AM EDT Plan of Treatment Upcoming Encounters Date Type Department Care Team (Late st Contact Info) Description 05/30/2025 9:00 AM EST Office Visit [facility] [address] [place] [address] Linda Redmond, SAULO [address] [facility] [place] [address] 12/02/2025 10:00 AM EDT Office Visit [facility] [address] [place] [address] Linda Redmond, MANAGER SKILLED [address] [place] [place] [address] Health Maintenance Due Date Last Done Comments Mammogram 09/15/2024 09/16/2023 Influenza Vaccine Discontinued Procedures Procedure Name Priority Date/Time Associated Diagnosis Comments MM SCREENING MAMM WITH 3D COOPER - US AND ADDITIONAL Routine 09/16/2023 8:04 AM EDT from Last 3 Months or Most Recently Relevant to Health Maintenance Results * MM SCREENING MAMM WITH 3D COOPER - US AND ADDITIONAL (09/16/2023 8:04 AM EDT) Anatomical Region Laterality Modality Radiographic Oralia ging Linda Coronadokaliajustino MANAGER SKILLED IMG XR PROCEDURES Final Result from Last 3 Months or Most Recently Relevant to Health Maintenance Insurance [employer] Care Teams Lathe Scalper Operator Relationship Specialty Start Date End Date Meir García MD [address] [facility] [place] [address] PCP - General Family Medicine 08/31/23
--- OUTSIDE RECORDS SUMMARY | 2024-11-30 10:56 | XMS_ITS | Encounter Summary ---
Author Organization [facility] Address [address] [place] [address] Care Team Providers Care Passementerie Worker Name Role Phone Meir García MD Primary Care Provider [phone] Encounter Details Date Type Department Care Team (Late st Contact Info) Description 12/16/2023 Clinisync Result Encounter [facility] External Department Unsolicited Linda Redmond, SAULO [address] [place] [address] Social History Tobacco Use Types Packs/Day Years [...] often do you attend chur ch or synagogue services? More than 4 times per year 08/24/2023 Do you belong to any clubs o r organizations such as jainism groups, unions, fraternal or athletic groups, or [...] and heating? Not hard at all 08/24/2023 [facility] - Occupational [...] place to sleep or slept in a chcf (including now)? No 08/24/2023 Comments No Sex [...] Visit [facility] [address] [place] [address] Linda Redmond NP [address] [place] [address] 12/02/2025 10:00 AM EDT Office Visit [facility] [address] [place] [address] Linda Redmond NP [address] [place] [phone] documented as of this encounter Procedures Procedure Name Priority Date/Time Associated Diagnosis Comments CT ABDOMEN PELVIS W CON 12/16/2023 1:06 PM EDT documented in this encounter Results * CT ABDOMEN PELVIS W CON (12/16/2023 1:06 PM EDT) Anatomical Region Laterality Modality Other 12/16/2023 1:06 PM EDT Narrative 12/16/2023 1:09 PM EDT [address] [address] [address] Scan Report Signed Patient: EMILY COLBERT MR#: [id number] : 1985 Acct:[id number] Age/Sex: 38 / F ADM Date: 12/16/23 Loc: CT Attending Dr: Linda Redmond NP Ordering Physician: Linda Redmond NP Date of Service: 12/16/23 Procedure(s): CT abdomen pelvis w con Accession Number(s): [id number] cc: Linda Redmond NP [place] [id number] Patient Name: EMILY COLBERT MRN: [facility]:[id number] date: 1985 Sex: F Assigned Patient Location: CT Current Patient Location: CT Accession/Order Number: [id number] Exam Date: 12/16/2023 09:25 Report Date: 12/16/2023 13:06 At the request of: LINDA REDMOND Procedure: CT abdomen pelvis w con CT ABDOMEN AND PELVIS WITH CONTRAST: INDICATION: ALKALINE PHOSPHATASE ELEVATION R74.8. COMPARISON: None. TECHNIQUE: Helical CT images of the abdomen and pelvis were obtained after the administration of intravenous contrast. Dose reduction techniques were achieved by using automated exposure control and/or adjustment of mA and/or kV according to patient size and/or use of iterative reconstruction technique. FINDINGS: LOWER CHEST: The visualized lung bases are unremarkable. There is a small hiatal hernia. LIVER: Unremarkable. GALLBLADDER AND BILIARY SYSTEM: There is cholelithiasis. No intra or extrahepatic biliary ductal dilatation. SPLEEN: Unremarkable. PANCREAS: Unremarkable. ADRENAL GLANDS: Unremarkable. KIDNEYS AND URETERS: The kidneys enhance symmetrically. There is no hydronephrosis. There is a nonobstructing 2 mm calculus in the lower pole the right kidney. Punctate nonobstructing calculi in the upper pole the left kidney. No focal renal lesions. BLADDER: Unremarkable. GASTROINTESTINAL TRACT: Mild wall thickening of the descending colon which may be secondary to underdistention or mild colitis. No evidence of bowel obstruction. The appendix is not clearly identified. VASCULATURE: Unremarkable. RETROPERITONEUM AND LYMPH NODES: No lymphadenopathy or mass. PERITONEUM/MESENTERY: No abdominal ascites. No free air. PELVIS: There is a complex lesion in the left ovary measuring 4.8 x 6.4 x 5.2 cm. No pelvic ascites or lymphadenopathy. BODY WALL: Small to moderate fat-containing upper abdominal ventral hernia. Small fat-containing umbilical hernia with adjacent stranding of the fat. BONES: Mild to moderate loss of disc height at L5-S1. CT/CT abdomen pelvis w con IMPRESSION: 1. Complex lesion in the left ovary measuring 4.8 x 6.4 x 5.2 cm. An ovarian mass is not excluded. Further evaluation with pelvic MRI is recommended. 2. Cholelithiasis. No biliary ductal dilatation. 3. Small to moderate upper abdominal fat-containing ventral hernia. Small fat-containing umbilical hernia with adjacent fat stranding. 4. Small hiatal hernia. 5. Mild wall thickening of the descending colon which may be secondary to underdistention or less likely mild colitis. Electronically authenticated by: LONDON MARION Date: 12/16/2023 13:06 Dictated By: London Marion M.D. Signed By: 12/16/23 1309 DD/ 1306 TD/TT: Clean Rice Broker: Procedure Note Radiology, Radiologist, MD - 12/16/2023 [place] [address] CT Scan Report Signed Patient: ARSALAN COLBERT#: [id number] : 1985Acct:[id number] Age/Sex: 38 / FADM Date: 12/16/23 Loc: CT Attending Dr: Linda Redmond NP Ordering Physician: Linda Redmond NP Date of Service: 12/16/23 Procedure(s): CT abdomen pelvis w con Accession Number(s): [id number] cc: Linda Redmond NP [address] [place] [address] Patient Name: EMILY COLBERT MRN: [facility]:[id number] date: 1985 Sex: F Assigned Patient Location: CT Current Patient Location: CT Accession/Order Number: [id number] Exam Date: 12/16/2023 09:25 Report Date: 12/16/2023 13:06 At the request of: LINDA REDMOND Procedure: CT abdomen pelvis w con CT ABDOMEN AND PELVIS WITH CONTRAST: INDICATION: ALKALINE PHOSPHATASE ELEVATION R74.8. COMPARISON: None. TECHNIQUE: Helical CT images of the abdomen and pelvis were obtained afterthe administration of intravenous contrast. Dose reduction techniques were achieved by using automated exposurecontrol and/or adjustment of mA and/or kV according to patient size and/or use of iterative reconstruction technique. FINDINGS: LOWER CHEST: The visualized lung bases are unremarkable. There is a small hiatal hernia. LIVER: Unremarkable. GALLBLADDER AND BILIARY SYSTEM: There is cholelithiasis. No intra or extrahepatic biliary ductal dilatation. SPLEEN: Unremarkable. PANCREAS: Unremarkable. ADRENAL GLANDS: Unremarkable. KIDNEYS AND URETERS: The kidneys enhance symmetrically. There is no hydronephrosis. There is a nonobstructing 2 mm calculus in the lower polethe right kidney. Punctate nonobstructing calculi in the upper pole the left kidney. No focal renal lesions. BLADDER: Unremarkable. GASTROINTESTINAL TRACT: Mild wall thickening of the descending colon whichmay be secondary to underdistention or mild colitis. No evidence of bowel obstruction. The appendix is not clearly identified. VASCULATURE: Unremarkable. RETROPERITONEUM AND LYMPH NODES: No lymphadenopathy or mass. PERITONEUM/MESENTERY: No abdominal ascites. No free air. PELVIS: There is a complex lesion in the left ovary measuring 4.8 x 6.4 x5.2 cm. No pelvic ascites or lymphadenopathy. BODY WALL: Small to moderate fat-containing upper abdominal ventralhernia. Small fat-containing umbilical hernia with adjacent stranding of the fat. BONES: Mild to moderate loss of disc height at L5-S1. CT/CT abdomen pelvis w con IMPRESSION: 1. Complex lesion in the left ovary measuring 4.8 x 6.4 x 5.2 cm. Anovarian mass is not excluded. Further evaluation with pelvic MRI is recommended. 2. Cholelithiasis. No biliary ductal dilatation. 3. Small to moderate upper abdominal fat-containing ventral hernia. Small fat-containing umbilical hernia with adjacent fat stranding. 4. Small hiatal hernia. 5. Mild wall thickening of the descending colon which may be secondary to underdistention or less likely mild colitis. Electronically authenticated by: LONDON MARION Date: 12/16/2023 13:06 Dictated By: London Marion M.D. Signed By:12/16/23 1309 DD/ 1306 TD/TT: Clean Rice Broker: us Linda Redmond NP [facility] Final Result documented in this encounter Visit Diagnoses Not on filedocumented in this encounter Care Teams Passementerie Worker Relationship Specialty Start Date End Date Meir García MD [address] [place] [address] PCP - General Family Medicine 08/31/23 documented as of this encounter
--- OUTSIDE RECORDS SUMMARY | 2024-11-30 10:56 | XMS_ITS | Encounter Summary ---
Author Organization [facility] Address [address] [place] [address] Care Team Providers Care Heavy Equipment Engine Mechanic Name Role Phone Meir García MD Primary Care Provider Encounter Details Date Type Department Care Team (Late st Contact Info) Description 11/27/2024 Telephone [facility] [address] [place] [address] Linda Redmond, PINION SORTER [address] [place] [address] Social History Tobacco Use Types Packs/Day Years [...] often do you attend chur ch or mormonism services? More than 4 times per year 08/24/2023 Do you belong to any clubs o r organizations such as catholic groups, unions, fraternal or athletic groups, or [...] and heating? Not hard at all 08/24/2023 [facility] ional Health - Occupational Stress [...] place to sleep or slept in a senior care (including now)? No 08/24/2023 Comments No Sex and Gender Information Value Date Recorded Sex Assigned at Not on file Legal Sex Female 11:50 PM EDT Gender Identity Not on file Sexual Orientation Not on file documented as of this encounter Miscellaneous Notes * Telephone Encounter - Linda Redmond NP - 11/27/2024 9:28 AM EDT Please call [employer] to get copies of labs done in last few months [place] documented in this encounter Plan of Treatment Upcoming Encounters Date Type Department Care Team (Late st Contact Info) Description 05/30/2025 9:00 AM EST Office Visit [facility] [address] [address] Linda Redmond NP [address] [place] [address] 12/02/2025 10:00 AM EDT Office Visit [facility] [address] [place] [address] Linda Redmond NP [address] [place] [address] documented as of this encounter Visit Diagnoses Not on filedocumented in this encounter Care Teams Heavy Equipment Engine Mechanic Relationship Specialty Start Date End Date Meir García MD [address] [place] [address] PCP - General Family Medicine 08/31/23 documented as of this encounter
--- OUTSIDE RECORDS SUMMARY | 2024-11-30 10:56 | XMS_ITS | Encounter Summary ---
Author Organization [facility] Address [address] [place] [address] Care Team Providers Care Or Rn Name Role Phone Meir García MD Primary Care Provider [phone] Encounter Details Date Type Department Care Team (Late st Contact Info) Description 08/23/2022 Abstract [facility] [address] [place] [phone] Johanna Eaton PA [address] [place] [address] Social History Tobacco Use Types Packs/Day Years Used Date Smoking Tobacco: Never Smokeless Tobacco: Never Tobacco Cessation:Counseling Given: Not Answered Alcohol Use Standard Drinks/Week Comments Never 0 (1 standard drink = 0.6 oz pur e alcohol) Comments Unknown Sex and Gender Information Value Date Recorded Sex Assigned at Not on file Legal Sex Female 11:50 PM EDT Gender Identity Not on file Sexual Orientation Not on file documented as of this encounter Plan of Treatment Upcoming Encounters Date Type Department Care Team (Late st Contact Info) Description 05/30/2025 9:00 AM EST Office Visit [facility] [address] [place] [address] Linda Redmond NP [address] [place] [address] 12/02/2025 10:00 AM EDT Office Visit [facility] [address] [place] [address] Linda Redmond, SAULO [address] [place] [address] documented as of this encounter Visit Diagnoses Not on filedocumented in this encounter Care Teams Or Rn Relationship Specialty Start Date End Date Meir García MD [address] [place] [address] PCP - General Family Medicine 08/31/23 documented as of this encounter
--- OUTSIDE RECORDS SUMMARY | 2024-11-30 10:56 | XMS_ITS | Encounter Summary ---
Author Organization [facility] Address [address] [place] [address] Care Team Providers Care Regulatory Compliance Specialist Name Role Phone Meir García MD Primary Care Provider [phone] Encounter Details Date Type Department Care Team (Late st Contact Info) Description 12/01/2023 Abstract [facility] [address] [place] [address] Josh Rajan DO [address] [place], [place] [id number] Social History Tobacco Use Types Packs/Day Years [...] often do you attend chur ch or baptist services? More than 4 times per year 08/24/2023 Do you belong to any clubs o r organizations such as buddhism groups, unions, fraternal or athletic groups, or [...] and heating? Not hard at all 08/24/2023 [facility] - Occupational Stress [...] a fci (including now)? No 08/24/2023 Comments No Sex and Gender Information Value Date Recorded Sex Assigned at Not on file Legal Sex Female 11:50 PM EDT Gender Identity Not on file Sexual Orientation Not on file documented as of this encounter Plan of Treatment Upcoming Encounters Date Type Department Care Team (Late st Contact Info) Description 05/30/2025 9:00 AM EST Office Visit [facility] [address] [place] [address] Linda Redmond, SAULO [address] [place] [phone] 12/02/2025 10:00 AM EDT Office Visit [facility] [address] [place] [address] Linda Redmond, SAULO [address] [place] [id number] documented as of this encounter Visit Diagnoses Not on filedocumented in this encounter Care Teams Regulatory Compliance Specialist Relationship Specialty Start Date End Date Meir García MD [address] [place] [phone] PCP - General Family Medicine 08/31/23 documented as of this encounter
--- OUTSIDE RECORDS SUMMARY | 2024-11-30 10:56 | XMS_ITS | Encounter Summary ---
Author Organization [facility] Address [address] [place] [address] Care Team Providers Care Leather Grainer Name Role Phone Meir García MD Primary Care Provider [phone] Encounter Details Date Type Department Care Team (Late st Contact Info) Description 03/26/2024 Orders Only [facility] [address] [place] [address] Linda Redmond, ENDODONTIC ASSISTANT [address] [place] [address] Mixed hyperlipidemia (Primary Dx) Social History Tobacco Use Types [...] often do you attend chur ch or scientologist services? More than 4 times per year 08/24/2023 Do you belong to any clubs o r organizations such as druze groups, unions, fraternal or athletic groups, or [...] and heating? Not hard at all 08/24/2023 [facility] - Occupational [...] place to sleep or slept in a mcc (including now)? No 08/24/2023 Comments No Sex [...] EST Office Visit [facility] [address] [place] [address] Linda Redmond, SAULO [address] [place] [phone] 12/02/2025 10:00 AM EDT Office Visit [facility] [address] [place] [address] Linda Redmond, SAULO [address] [place] [phone] documented as of this encounter Visit Diagnoses Diagnosis Mixed hyperlipidemia- Primary Mixed hyperlipidemia documented in this encounter Care Teams Leather Grainer Relationship Specialty Start Date End Date Meir García MD [address] [place] [phone] PCP - General Family Medicine 08/31/23 documented as of this encounter
--- OUTSIDE RECORDS SUMMARY | 2024-11-30 10:56 | XMS_ITS | Encounter Summary ---
Author Organization [facility] Address [address] [place] [address] Care Team Providers Care Forder Operator Name Role Phone Pcp, No Primary Care Provider [phone] Encounter Details Date Type Department Care Team (Late st Contact Info) Description 12/29/2017 Documentation Only [facility] [address] [place], [place] [address] [place], [place] [id number] Desi Livingston MS, [facility] [address] [place] [address] Mrs. Colbert is a 32 yrs female, who is the parent of Don Colbert. She was Social History Tobacco Use Types Packs/Day Years Used Date Smoking Tobacco: Never Assessed Comments Unknown Sex and Gender Information Value Date Recorded Sex Assigned at Not on file Legal Sex Female 11:14 AM EDT Gender Identity Not on file Sexual Orientation Not on file documented as of this encounter Progress Notes * Desi Livingston, , [facility] - 12/29/2017 11:14 AM EDT Mrs. Colbert is a 32 yrs female, who is the parent of Dno Colbert. She was approached about consent for the [facility] [employer] [facility] Comprehensive Profiling for Cancer and Blood Disorders on 12/29/17. Study purpose, research- only procedures, reasonably foreseeable risks, and discomforts were reviewed. Reasonably expected benefits, alternative procedures/ treatments, confidentiality of records,and compensation in the event of injury (and/or study participation) were also reviewed. It was explained that participation is voluntary, and that withdrawal from the study at any time may occur. She was instructed as to who to contact with questions or concerns. Mother verbalized understanding ofthe above and stated that she understand the risks. She was given ample time to review the consent.All questions were answered. She was given a copy of the signed consent form. The original consent form will be located in the research chart. The consent was given to the mother in their own language and an janitor and cleaner was not needed. The following individuals were present for the consent: Kelly Livingston, Mr. Colbert, paternal grandfather. documented in this encounter Plan of Treatment Not on file documented as of this encounter Visit Diagnoses Not on filedocumented in this encounter Care Teams Forder Operator Relationship Specialty Start Date End Date Pcp, No [place] [address] PCP - General 01/02/18 documented as of this encounter
--- NOTE | 2024-11-30 11:01 | MM_ITS ---
Patient Name: ANTONIO MOY MR#: [id number] : 1985 Exam Date: 11/30/2024 Ordering Doctor: YANG ESTRADA CNP RADIOLOGY REPORT PROCEDURE: MM TOMOSYNTHESIS SCREENING BI COMPARISON: MM TOMOSYNTHESIS SCREENING BI, 09/16/2023. MAMMO POST BIOPSY RIGHT, 04/26/2022. MG MAMM DIAGNOSTIC 3D SERV[place]O CAD, 04/16/2022. INDICATIONS: screening Calculator Name NCI Breast Cancer Risk Assessment Tool 5 Year Breast Cancer Risk 1.50% Lifetime Breast Cancer Risk 14.30% Personal Breast Cancer No Personal Ovarian Cancer No Treatments None Family Cancers Son with kidney cancer at age 3; Grandmother-maternal with leukemia cancer at age ~60; Brother with leukemia cancer at age 1. LOCATION: [facility] BREAST COMPOSITION: There are scattered areas of fibroglandular density. FINDINGS: DIAGNOSTIC CATEGORY 1--NEGATIVE. RIGHT BREAST: No significant suspicious finding. LEFT BREAST: No significant suspicious finding. RECOMMENDATIONS: ROUTINE MAMMOGRAM AND CLINICAL EVALUATION IN 12 MONTHS. Dictated by: Toro Louise DO on 11/30/2024 at 15:37 Approved by: Toro Louise DO on 11/30/2024 at 15:38
--- OUTSIDE RECORDS SUMMARY | 2024-11-30 11:04 | XMS_ITS | CCD ---
Author Organization [facility] Care Team Providers Care 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 [place] Name Role Phone PCP, NO Primary Care Unavailable MENDEL CORADO Attending Unavailable MENDEL CORADO Referring Unavailable AICLINDA SERVIN Primary Care Physician Halley JOY Attending Unavailable AICHREI, LINDA LERNER J Referring Unavailabl e Halley JOY Attending Unavailable ETHANLHalley Attending Unavailable NILLHalley Referring Unavailable AICHHOLZ, SKID STRAPPER LINDA Primary Care Unavailable AICHHOLZ, SKID STRAPPER LINDA Admitting Unavailable AICHHOLZ, SKID STRAPPER LINDA Consulting Unavailable AICHHOLZ, SKID STRAPPER LINDA Attending Unavailable AICHHOLZ, SKID STRAPPER LINDA Admitting Unavailable AICHHOLZ, SKID STRAPPER LINDA Consulting Unavailable AICHHOLZ, SKID STRAPPER LINDA Attending Unavailable AICHHOLZ, SKID STRAPPER LINDA Primary Care Unavailable AICHHOLZ, SKID STRAPPER LINDA Consulting Unavailable AICHHOLZ, SKID STRAPPER LINDA Attending Unavailable AICHHOLZ, SKID STRAPPER LINDA Admitting Unavailable AICHHOLZ, SKID STRAPPER LINDA Primary Care Unavailable DR CEFERINO LUDWIG Consulting Unavailable KIANA CHURCH Consulting Unavailable AICHHOLZ, SKID STRAPPER LINDA Consulting Unavailable AICHHOLZ, SKID STRAPPER LINDA Attending Unavailable AICHHOLZ, SKID STRAPPER LINDA Admitting Unavailable AICHHOLZ, SKID STRAPPER LINDA Primary Care Unavailable DR CEFERINO LUDWIG Consulting Unavailable NILL ., DR ROWLEY Attending Unavailable NILL ., DR ROWLEY Admitting Unavailable AICHHOLZ, SKID STRAPPER LINDA Primary Care Unavailable NILL ., DR ROWLEY Consulting Unavailable MINGO II, VLAD Consulting Unavailable ALDO ELIZABETH Consulting Unavailable JED LINK Consulting Unavailable NILL ., DR ROWLEY Admitting Unavailable NILL ., DR ROWLEY Consulting Unavailable AICHHOLZ, SKID STRAPPER LINDA Primary Care Unavailable NILL ., DR ROWLEY Attending Unavailable AICHHOLZ, SKID STRAPPER LINDA Primary Care Unavailable MOHINI ., DR RICHARDSON Admitting Unavailable MOHINI ., DR RICHARDSON Consulting Unavailable MOHINI ., DR RICHARDSON Attending Unavailable MOHINI ., DR RICHARDSON Consulting Unavailable MOHINI ., DR RICHARDSON Attending Unavailable MOHINI ., DR RICHARDSON Admitting Unavailable AICHHOLZ, SKID STRAPPER LINDA Primary Care Unavailable AICHHOLZ, SKID STRAPPER LINDA Primary Care Unavailable MOHINI ., DR RICHARDSON Consulting Unavailable MOHINI ., DR RICHARDSON Attending Unavailable MOHINI ., DR RICHARDSON Admitting Unavailable ROBERT HOPKINS Consulting Unavailable ABDI GALVAN Consulting Unavailable AICHHOLZ, SKID STRAPPER LINDA Primary Care Unavailable AICHHOLZ, SKID STRAPPER LINDA Attending Unavailable AICHHOLZ, SKID STRAPPER LINDA Admitting Unavailable AICHHOLZ, SKID STRAPPER LINDA Consulting Unavailable AICHHOLZ, SKID STRAPPER LINDA Consulting Unavailable AICHHOLZ, SKID STRAPPER LINDA Attending Unavailable AICHHOLZ, SKID STRAPPER LINDA Admitting Unavailable AICHHOLZ, SKID STRAPPER LINDA Primary Care Unavailable AICHHOLZ, SKID STRAPPER LINDA Admitting Unavailable AICHHOLZ, SKID STRAPPER LINDA Primary Care Unavailable AICHHOLZ, SKID STRAPPER LINDA Consulting Unavailable AICHHOLZ, SKID STRAPPER LINDA Attending Unavailable AICHHOLZ, SKID STRAPPER LINDA Primary Care Unavailable AICHHOLZ, SKID STRAPPER LINDA Admitting Unavailable AICHHOLZ, SKID STRAPPER LINDA Consulting Unavailable AICHHOLZ, SKID STRAPPER LINDA Attending Unavailable DO Josh Rajan Attending Provider Meir García MD Primary Care Provider [phone] GURPREET ALLISON Attending Unavailable WALKUPONEIL Attending Unavailable AICHHOLZ, LINDA J Primary Care Unavailable AICHHOLZ, LINDA J Referring Unavailable AICHHOLZ, LINDA J Primary Care Unavailable Aichholz TOOL GRINDING MACHINE OPERATOR-SKID STRAPPER, Linda J Primary Care Provider Unavailable Primary Care Provider UnavailELENI Palomares Attending Unavailable WALKUP, ONEIL L Referring Unavailable AICHHOLZ, LINDA J Primary Care Unavailable WALKUP, ONEIL L Attending Unavailable AICHHOLZ, LINDA J Referring Unavailable AICHHOLZ, LINDA J Primary Care Unavailable WALKUP, ONEIL L Attending Unavailable AICHHOLZ, LINDA J Referring Unavailable AICHHOLZ, LINDA J Primary Care Unavailable GURPREET ALLISON Admitting Unavailable GURPREET ALLISON Attending Unavailable GURPREET ALLISON Referring Unavailable LINDA REDMOND Primary Care Unavailable LINDA REDMOND Referring Unavailable LINDA REDMOND Primary Care Unavailable LINDA REDMOND Primary Care Unavailable Linda Redmond Primary Care Provider [place] GUTIERREZ, Imad Attending Provider [place] GUTIERREZ, Imad Attending Provider [phone] Linda Redmond Primary Care Provider Linda Redmond Referring Provider [place] GUTIERREZ, Imad Other Provider Asaad, Imad Attending Unavailable Linda Redmond Primary Care Unavailable Asaad, Imad Admitting Unavailable Asaad, Imad Attending Unavailable Linda Redmond Primary Care Unavailable Asaad, Imad Admitting Unavailable Asaad, Imad Attending Unavailable Linda Redmond Primary Care Unavailable Asaad, Imad Admitting Unavailable Mohini, Josh Admitting Unavailable Mohini Josh Attending Unavailable Asaad, Imad Admitting Unavailable Linda Redmond Primary Care Unavailable Asaad, Imad Attending Unavailable CARHREI, LINDA Attending Unavailable CARHHOLJamila, LINDA Attending Unavailable JOHANNA EATON Attending Unavailable CARHREI, LINDA Attending Unavailable NYLA, LINDA Attending Unavailable NYLA, LINDA Attending Unavailable Allergies Allergy Classification Reported Allergen(s) Allergy Type Date of Onset Reaction(s) Facility (20 sources) Cephalexin; Translations: [cephalexin] Drug Allergy 3 Syncope (disorder), Syncope [facility] [place] (2 sources) Cephalexin Drug Allergy [facility] Repository (1 source) Cephalexin Drug Allergy 5 [facility] Repository Medications Current Medications Medication Drug Class(es) Dates Sig (Normalized) Sig (Original) acetaminophen 500 mg oral tablet (11 sources) Start: 01-13-2024 End: 05-30-2024 take 2 tablets by mouth every six hours as needed acetaminophen (Tylenol) 500 MG tablet Take 1,000 mg by mouth every 6 (six) hours if needed 01/13/2024 05/30/2024 Discontinued (Therapy completed) busPIRone hydrochloride 15 mg oral tablet (20 sources) Start: 08-06-2024 take 1 tablet by mouth twice daily Start: 03-03-2022 busPIRone 15 m g Tab 22.5 mg = 1.5 tab(s), Oral, BID, Refills(s) 0 Start Date: 03/03/22 Status: Ordered take 7.5 mg by mouth in the morning busPIRone (Buspar) 15 MG tablet Take 7.5 [...] anxiety. Active cholecalciferol 0.05 mg oral capsule (9 sources) Vitamin D take 1 capsule by mouth once daily in the morning cholecalciferol, vitamin D3, (VITAMIN D3) 2,000 units capsule Indications: prevention of vitamin D deficiency Take 1 capsule (2,000 Units total) by mouth in the morning. Indications: prevention of vitamin D deficiency. Active clonazePAM 0.5 mg oral tablet (20 sources) Benzodiazepine Start: take 1 tablet by mouth three times daily doxycycline hyclate 100 mg oral tablet (6 sources) Tetracycline-class Drug Start: End: take 1 tablet by mouth in the morning, then take 1 tablet by mouth at bedtime doxycycline (Vibra-Tabs) 100 MG tablet Indications: Subacute maxillary sinusitis Take 1 tablet (100 mg) by mouth in the morning and 1 tablet (100 mg) before bedtime. Take with a full glass of water and do not lie down for at least 30 minutes after.. 20 tablet 02/23/2024 05/30/2024 Discontinued (Therapy completed) escitalopram 20 mg oral tablet (2 sources) Serotonin Reuptake Inhibitor Start: take 1 tablet by mouth once daily Lexapro 20 mg Tab 20 mg = 1 tab(s), Oral, Daily, Refills(s) 0 Start Date: 03/03/22 Status: Ordered 84 hr estradiol 0.16993 mg/hr transdermal system (11 sources) Estrogen Start: 025 Start: 08-02-2024 estradioL (SONAL RADHA-DOT) 0.05 mg/24 hr Indications: Menopause Place 1 patch on the skin 2 (two) times a week. 8 patch 12 08/02/2024 Active Start: 01-16-2024 End: 02-01-2024 estradioL (VIVELLE-DOT) 0.05 mg/[address] 1 patch on the skin 2 (two) times a week. 8 patch 01/16/2024 02/01/2024 Discontinued Start: 01-13-2024 End: 02-23-2024 apply 1 dose transdermal route two times weekly [place] 0.05 MG/24HR Place 1 patch on the skin 2 (two) times a week 01/13/2024 02/23/2024 Discontinued (Therapy completed) 84 hr estradiol 0.73071 mg/hr / norethindrone acetate 0.62652 mg/hr transdermal system (20 sources) Estrogen Start: 05-03-2024 End: 08-01-2024 estradiol-norethindrone acet (COMBIPATCH) 0.05-0.14 mg/24 hr Indications: Menopause Place 1 patch on the skin 2 (two) times a week. 8 patch 2 05/21/2024 08/01/2024 Discontinued Start: 05-03-2024 estradiol-nore thindrone acet (COMBIPATCH) 0.05-0.14 mg/24 hr Indications: Menopause Place 1 patch on the skin 2 (two) times a week. 8 patch 2 05/03/2024 Active Start: 02-02-2024 End: 11-27-2024 apply 0.05-0.14 mg transdermal route once daily estradiol-norethindrone (Combipatch) 0.05-0.14 MG/DAY Place 1 patch on the skin 2 (two) times a week 02/02/2024 11/27/2024 Discontinued (Therapy completed) Start: 02-02-2024 End: 05-02-2024 estradiol-norethindrone acet (COMBIPATCH) [...] acid 5 mg oral tablet (20 sources) End: 08-01-2024 take 5 mg by mouth in the morning FOLIC ACID ORAL Take 5 mg by mouth in the morning. 08/01/2024 Discontinued End: 05-30-2024 take 0.4 mg by mouth once daily folic acid (Folvite) 4 00 MCG tablet Take 0.4 mg by mouth Daily 05/30/2024 Discontinued (Therapy completed) take 1 tablet by tess th in the morning folic acid (FOLVITE) 400 MCG tablet Take [...] tablet by mouth in the morning. Active akvyrycxrwhy-Uz-qxoz -minerals tablet (10 sources) take 1 tablet by mouth in the morning htdjlffzzssa-Hg-tl on-minerals tablet Take 1 tablet by mouth [...] Drug Class(es) Dates Sig (Normalized) Sig (Original) docusate sodium 50 mg / sennosides, fdc 8.6 mg oral tablet (7 sources) Start: 01-13-2024 End: 03-22-2024 take 1 tablet by mouth in the morning sennosides-docusat e sodium (SENNA WITH DOCUSATE SODIUM) 8.6-50 mg [...] [Mixed hyperlipidemia] Onset: 09-29-2023 09-29-2023 Chronic Endometriosis (2 sources) Endometriosis (clinical); Translations: [Endometriosis, unspecified] 05-02-2024 Chronic [...] Onset: 04-14-2022 Other aftercare (1 source) Other roasterman (current) drug therapy; Translations: [OTH SENIOR CARE [...] Alteration in bowel elimination 03-05-2022 Episodic Other liver diseases (9 sources) Steatosis of liver; Translations: [Fatty (change of) liver, not elsewhere classified] 08-06-2024 Chronic Other liver diseases (4 sources) Fatty (change of) liver, not elsewhere classified; Translations: [Other chronic nonalcoholic liver disease] Onset: 08-13-2024 08-06-2024 Chronic Other liver diseases (7 sources) Abnormal levels of other serum enzymes; Translations: [Other nonspecific abnormal serum enzyme levels] Onset: 08-13-2024 08-06-2024 Episodic Other nutritional; endocrine; and metabolic disorders [...] nutritional; endocrine; and metabolic disorders (20 sources) Body mass index 40+ - severely obese; Translations: [Body mass index (BMI) 40.0-44.9, adult] Onset: 12-14-2023 12-14-2023 Chronic Other nutritional; endocrine; and metabolic disorders (3 sources) Loss of appetite; Translations: [Anorexia] Onset: 03-05-2022 Episodic Other nutritional; endocrine; and metabolic disorders (2 sources) Weight loss 03-03-2022 Episodic Residual codes; unclassified (1 source) Pain, unspecified; Translations: [Pain, unspecified] Onset: 03-19-2024 Episodic Residual codes; unclassified (4 sources) Menopause present; Translations: [Asymptomatic menopausal state] [...] unspecified] Onset: 04-07-2022 Episodic Biliary tract disease (20 sources) Cholelithiasis without obstruction; Translations: [Calculus of gallbladder without cholecystitis without obstruction] Onset: 01-09-2024 01-09-2024 Episodic Calculus of urinary tract (20 sources) Kidney stone; Translations: [Calculus of kidney] [...] Onset: 02-08-2022 Episodic Other upper respiratory infections (14 sources) Acute maxillary sinusitis; Translations: [Acute maxillary sinusitis, unspecified] Onset: 02-23-2024 Resolved: 05-30-2024 02-23-2024 Episodic Ovarian cyst (20 sources) Unspecified ovarian cyst, left side; Translations: [Cyst of left ovary] Onset: 04-23-2022 10-03-2023 Episodic Results Test Name Value Interpretation Reference Range Facility Enhanced Liver Fibrosis Test on 10-09-2024 Enhanced Liver Fibrosis Score 8.23 Normal <9.80 [facility] Comment on above: Result Comment: ELF( TM) Score Interpretation: Risk cut-offs to assess the likelihood of progression to cirrhosis and liver-related clinical events within 3.9 years following baseline ELF score (IQR: 14.0-22.4 months)*: Lower risk < 9.80 Mid risk 9.80 - 11.29 Higher risk >11.29 Note: The ELF(TM) Score is a unitless numerical value. *Jayson SA, Trevor VW, Lester T, et al. Selonsertib for patients with bridging fibrosis or compensated cirrhosis due to PINA: Results from randomized phase III STELLAR trials. J Hepatol. 2020 Oct;73(1):26-39. Performed at: [facility] [address] [id number] Adhesive Sprayer: Dena Gibbons MD, Phone: [phone] PERFORMED BY: [facility] [address] [place] [address] PATHOLOGIST INTER COM SERVICER JUAN LUIS MERINO M.D. Performed By: #### A LK PHOSIS, HBCAB, DAVID, L-K MICRO, HEMOCHROM, HBSAB, HAAB, SMAB, HCBIGM, HAABT, CERULOP, HCV RX PCR, HBSAG, ALPHA PHEN, MITOM2, IGG #### [facility] , #### CBC, MANSOOR, HEPATIC #### [facility] [address] [place] [id number] [facility] US liveron 08-13-[address] [facility] [address] [place] [address] [place] [address] Ultrasound Report Signed Patient: Emily Moy MR#: [id number] 8 : 1985 Acct:[id number] Age/Sex: 38 / F ADM Date: 08/13/24 Loc: Room: Type: [facility] Attending Dr: Patricia Caraballo MD Ordering Provider: Patricia Caraballo MD Date of Service: 08/13/24 US/US liver: K76.0 - Fatty (change of) liver, not elsewhere classified Copies to: Patricia Caraballo MD LIMITED ABDOMINAL ULTRASOUND: CLINICAL HISTORY: Fatty liver. COMPARISON: None TECHNIQUE: Grayscale and color Doppler images of the right upper quadrant organs were obtained. FINDINGS: Pancreas: Visualized portions appear unremarkable. Liver: Unremarkable. Gallbladder: Cholelithiasis. CBD: 3 mm RT KIDNEY: No Hydronephrosis US/US liver IMPRESSION: CHOLELITHIASIS WITHOUT SONOGRAPHIC EVIDENCE OF ACUTE CHOLECYSTITIS.. Impression dictated by: Toro Louise Jr., D.OJuana 08/13/2024 11:23 AM Dictation Location: [place] [address] Tech: Leatha Leslie Transcribed By: CARISSA 08/13/24 1123 Dictated By: Toro Louise Jr, DO 08/13/24 1122 Signed By: 08/13/24 1123 Normal [facility] DAVID Antinuclear Antibodieson 08-06-2024 Antinuclear Abs, IFA Negative Normal . [facility] Comment on above: Result Comment: Nega tive <1:80 Borderline 1:80 Positive >1:80 ICAP nomenclature: AC-0 For more information about Hep-2 cell patterns use ANApatterns.org, the official website for the International Consensus on Antinuclear Antibody (DAVID) Patterns (ICAP). Performed at: - [facility] [id number] Adhesive Sprayer: Demarco Robles PhD, Phone: [phone] Performed By: #### A LK PHOSIS, HBCAB, DAVID, L-K MICRO, HEMOCHROM, HBSAB, HAAB, SMAB, HCBIGM, HAABT, CERULOP, HCV RX PCR, HBSAG, ALPHA PHEN, MITOM2, IGG #### [facility] , #### CBC, MANSOOR, HEPATIC #### [facility] [address] Actin smooth muscle IgG Ab [ Units/volume] in SerumOrdered By: Imad Asaad on 08-06-2024 Actin smooth muscle IgG Qn (S) Actin smooth muscle IgG Ab [Units/volume] in Serum 0- [facility] Comment on above: Negative 0 - 19 Weak positive 20 - 30 Moderate to strong positive >30 Actin Antibodies are found in 52-85% of patients with autoimmune hepatitis or chronic active hepatitis and in 22% of patients with primary biliary cirrhosis. Actin smooth muscle IgG Qn (S) 5 Units 0- [facility] Comment on above: Negative 0 - 19 Weak positive 20 - 30 Moderate to strong positive >30 Actin Antibodies are found in 52-85% of patients with autoimmune hepatitis or chronic active hepatitis and in 22% of patients with primary biliary cirrhosis. Alanine aminotransferase [En zymatic activity/volume] in Serum or PlasmaOrdered By: Imad Asaad on 08-06-2024 ALT [Catalytic activity/Vol] Alanine aminotransferase [Enzymatic activity/volume] in Serum or Plasma [address] [place] [address] ALT [Catalytic activity/Vol] 40 U/L Normal [address] [place] [address] Comment on above: Performed By: #### A LK PHOSIS, HBCAB, DAVID, L-K MICRO, HEMOCHROM, HBSAB, HAAB, SMAB, HCBIGM, HAABT, CERULOP, HCV RX PCR, HBSAG, ALPHA PHEN, MITOM2, IGG #### [facility] , #### CBC, MANSOOR, HEPATIC #### [facility] [address] [place] [address] [place] Albumin [Mass/volume] in Ser um or Plasma by Bromocresol green (BCG) dye binding methoOrdered By: Imad Asaad on 08-06-2024 Albumin BCG dye [Mass/Vol] Albumin [Mass/volume] in Serum or Plasma by Bromocresol green (BCG) dye binding metho 3.5-5.7 [facility] Albumin BCG dye [Mass/Vol] 4.7 g/dL 3.5-5.7 [facility] Alkaline Phosphatase Isoenzy meon 08-06-2024 Bone Fraction 35 % Normal 14-68 [facility] Comment on above: Performed By: #### A LK PHOSIS, HBCAB, DAVID, L-K MICRO, HEMOCHROM, HBSAB, HAAB, SMAB, HCBIGM, HAABT, CERULOP, HCV RX PCR, HBSAG, ALPHA PHEN, MITOM2, IGG #### [facility] , #### CBC, MANSOOR, HEPATIC #### [facility] [address] Intestinal Fraction 1 % Normal 0-18 [facility] Comment on above: Result Comment: Perf ormed at: CB - [facility] [address] [id number] Adhesive Sprayer: Demarco Robles PhD, Phone: [phone] Performed By: #### A LK PHOSIS, HBCAB, DAVID, L-K MICRO, HEMOCHROM, HBSAB, HAAB, SMAB, HCBIGM, HAABT, CERULOP, HCV RX PCR, HBSAG, ALPHA PHEN, MITOM2, IGG #### [facility] , #### CBC, MANSOOR, HEPATIC #### [address] [facility] [place] Alkaline Phosphatase 146 High 44-121 [facility] Comment on above: Performed By: #### A LK PHOSIS, HBCAB, DAVID, L-K MICRO, HEMOCHROM, HBSAB, HAAB, SMAB, HCBIGM, HAABT, CERULOP, HCV RX PCR, HBSAG, ALPHA PHEN, MITOM2, IGG #### [facility] , #### CBC, MANSOOR, HEPATIC #### [facility] [address] Liver Fraction 64 % Normal 18-85 [facility] Comment on above: Performed By: #### A LK PHOSIS, HBCAB, DAVID, L-K MICRO, HEMOCHROM, HBSAB, HAAB, SMAB, HCBIGM, HAABT, CERULOP, HCV RX PCR, HBSAG, ALPHA PHEN, MITOM2, IGG #### [facility] , #### CBC, MANSOOR, HEPATIC #### [facility] [address] Alkaline phosphatase [Enzyma tic activity/volume] in Serum or PlasmaOrdered By: Imad Asaad on 08-06-2024 ALP [Catalytic activity/Vol] Alkaline phosphatase [Enzymatic activity/volume] in Serum or Plasma High 44-121 [facility] Qcgbw-9-Aescyfzeyns Phenotyp shine 08-06-2024 Alpha 1 Anti-Trypsin 142 mg/dL Normal 100-188 [facility] Comment on above: Performed By: #### A LK PHOSIS, HBCAB, DAVID, L-K MICRO, HEMOCHROM, HBSAB, HAAB, SMAB, HCBIGM, HAABT, CERULOP, HCV RX PCR, HBSAG, ALPHA PHEN, MITOM2, IGG #### [facility] , #### CBC, MANSOOR, HEPATIC #### [facility] [address] Phenotype (P1) MM Normal . [facility] Comment on above: Result Comment: MM Phenotype is considered to be normal , producing normal serum levels of hkhyp-1-hfbxpqow inhibitor and not associated with clinical disease. Associated A1A total serum levels in other phenotypes and their incidence in the general population are shown in the table below. Phenotype Population % function A-1-AT Conc.* Incidence % compared to MM (Typical Range) MM 86.5% 100% (96 - 189) MS 8.0% 86% (83 - 161) MZ 3.9% 61% (60 - 111) FM 0.4% 100% (93 - 191) SZ 0.3% 41% (42 - 75) SS 0.1% 64% (62 - 119) ZZ 0.05% 19% (16 - 38) FS 0.05% 70% (70 - 128) FZ Unknown 46% (44 - 88) FF Unknown Unknown *A-1-AT concentration in the homozygous MM phenotype is taken as the reference normal. Percent deficiency in each phenotype is reported relative to this reference. Ranges used to confirm phenotype. Performed at: [facility] [address] [id number] Adhesive Sprayer: Demarco Robles PhD, Phone: [phone] Performed at: [facility] [address] [id number] Adhesive Sprayer: Dena Gibbons MD, Phone: [phone] Performed By: #### A LK PHOSIS, HBCAB, DAVID, L-K MICRO, HEMOCHROM, HBSAB, HAAB, SMAB, HCBIGM, HAABT, CERULOP, HCV RX PCR, HBSAG, ALPHA PHEN, MITOM2, IGG #### [facility] , #### CBC, MANSOOR, HEPATIC #### [address] Aspartate aminotransferase [ Enzymatic activity/volume] in Serum or PlasmaOrdered By: Imad Asaad on 08-06-2024 AST [Catalytic activity/Vol] Aspartate aminotransferase [Enzymatic activity/volume] in Serum or Plasma [address] AST [Catalytic activity/Vol] 40 U/L [address] Comment on above: Performed By: #### A LK PHOSIS, HBCAB, DAVID, L-K MICRO, HEMOCHROM, HBSAB, HAAB, SMAB, HCBIGM, HAABT, CERULOP, HCV RX PCR, HBSAG, ALPHA PHEN, MITOM2, IGG #### [facility] , #### CBC, MANSOOR, HEPATIC #### [address] Basophils Auto (Bld) [#/Vol] Ordered By: Imad Asaad on 08-06-2024 Basophils (Bld) [#/Vol] Automated basophil count 0.0-0.2 [facility] Basophils [#/volume] in Bloo d by Automated countOrdered By: Imad Asaad on 08-06-2024 Basophils (Bld) [#/Vol] 0.0 10*3/uL Normal 0.0-0.2 [facility] Comment on above: Result Comment: PERF ORMED BY: [facility] [address] [facility] [place] [address] PATHOLOGIST INTER COM SERVICER SAMM BEE M.D. Performed By: #### A LK PHOSIS, HBCAB, DAVID, L-K MICRO, HEMOCHROM, HBSAB, HAAB, SMAB, HCBIGM, HAABT, CERULOP, HCV RX PCR, HBSAG, ALPHA PHEN, MITOM2, IGG #### [facility] , #### CBC, MANSOOR, HEPATIC #### [facility] [address] Basophils/100 WBC Auto (Bld) Ordered By: Imad Asaad on 08-06-2024 Basophils/100 WBC (Bld) Automated basophil % . [facility] Basophils/100 leukocytes in Blood by Automated countOrdered By: Imad Asaad on 08-06-2024 Basophils/100 WBC (Bld) 0.6 % Normal . [facility] Comment on above: Performed By: #### A LK PHOSIS, HBCAB, DAVID, L-K MICRO, HEMOCHROM, HBSAB, HAAB, SMAB, HCBIGM, HAABT, CERULOP, HCV RX PCR, HBSAG, ALPHA PHEN, MITOM2, IGG #### [facility] , #### CBC, MANSOOR, HEPATIC #### [facility] [address] Bilirubin.direct [Mass/volum e] in Serum or PlasmaOrdered By: Imad Asaad on 08-06-2024 Bilirubin.direct [Mass/Vol] Bilirubin.direct [Mass/volume] in Serum or Plasma 0.03-0.18 [facility] Bilirubin.direct [Mass/Vol] 0.10 mg/dL 0.03-0.18 [facility] Bilirubin.total [Mass/volume ] in Serum or PlasmaOrdered By: Imad Asaad on 08-06-2024 Bilirubin [Mass/Vol] Bilirubin.total [Mass/volume] in Serum or Plasma 0.3-1.0 [facility] Bilirubin [Mass/Vol] 0.3 mg/dL Normal 0.3-1.0 [facility] Comment on above: Performed By: #### A LK PHOSIS, HBCAB, DAVID, L-K MICRO, HEMOCHROM, HBSAB, HAAB, SMAB, HCBIGM, HAABT, CERULOP, HCV RX PCR, HBSAG, ALPHA PHEN, MITOM2, IGG #### [facility] , #### CBC, MANSOOR, HEPATIC #### [facility] [address] Blood or tissue HFE gene mut ations identification by molecular genetics methodOrdered By: Patricia Caraballo on 08-06-2024 HFE gene targeted mutation analysis [employer] [facility] (Bld/Tiss) Blood or tissue HFE gene mutations identification by molecular genetics method . [facility] [place] Comment on above: Result:c.845G>A (p.C oj595Nde) - Not Detectedc.187C>G (p.Pph77Flp) - Not Detectedc.193A>T (p.Vwk09Iyd) - Not DetectedNot associated with increased risk to develop clinicalsymptoms of Hereditary Hemochromatosis. In symptomaticindividuals, other causes of iron overload should beevaluated. See Additional Information and Comments.Additional Clinical Information:Hereditary hemochromatosis (HFE related) is an autosomalrecessive iron storage disorder. Patients may have agenetic diagnosis of hereditary hemochromatosis and nevershow clinical symptoms. Clinical symptoms typically appearbetween 40 to 60 years in males and after menopause infemales. Signs and symptoms may include organ damage,primarily in the liver, risk for hepatocellularcarcinoma, diabetes, and heart disease due to ironaccumulation. Life expectancy may be decreased inindividuals who develop cirrhosis. Treatment forclinically symptomatic individuals may includetherapeutic phlebotomy. Liver transplant may be used totreat end stage liver failure. For preventive care,monitoring for iron overload is recommended for patientswho are homozygous for c.845G>A (p.Gef983Mxt) and have yetto experience clinical symptoms.Comments:The most common HFE variants associated with hereditaryhemochromatosis are c.845G>A (p.Flc613Lhh), c.187C>G(p.Zwm38Osh), c.193A>T (p.Mhv79Amf). While patientshomozygous for c.845G>A (p.Goa845Omm) are the most likelyto present clinical symptoms, less than 10% developclinically significant iron overload with tissue and organdamage.Genetic counseling is recommended to discuss the potentialclinical implications of positive results, as well asrecommendations for testing family members.Genetic Coordinators are available for health careproviders to discuss results at [phone]).Test Details:Three variants analyzed:c.845G>A (p.Onp894Ukv), commonly referred to as C282Yc.187C>G (p.Rwf33Zty), commonly referred to as H63Dc.193A>T (p.Rew32Vub), commonly referred to as T63HYjptyob/Limitations:DNA Analysis of the HFE gene (NM_000410.4) was performedby PCR amplification followed by restriction enzymedigestion analyses. Results must be combined with clinicalinformation for the most accurate interpretation. Molecular-based testing is highly accurate, but as in any laboratorytest, diagnostic errors may occur. False positive or falsenegative results may occur for reasons that include geneticvariants, blood transfusions, bone marrow transplantation,somatic or tissue-specific mosaicism, mislabeled samples,or erroneous representation of family relationships.This test was developed and its performancecharacteristics determined by [employer]. It has not beencleared or approved by the Food and Drug Administration.References:Tom BR, Erasto PC, Aren KV, Benson LW, Justino ;[employer] Liver Diseases.Diagnosis and management of hemochromatosis: 2011 practiceguideline by the [place] [employer] Association for the Study ofLiver Diseases. Hepatology. 2011 Oct;54(1):328-43. doi:10.1002/hep.29088. PMID: 27139048; PMCID: [id number].Fela G, Mere P, Kaylene PETERSEN, Sheila H, Catherine O,Isaiah S, Speedy I, Stanislaw M, Jada S. [facility] best practiceguidelines for the molecular genetic diagnosis ofhereditary hemochromatosis (HH). Eur J Hum Brigida. 2016Apr;24(4):479-04. doi: 10.1038/ejhg.2015.128. Epub 2014. PMID: 06229467; PMCID: [id number]. HFE gene targeted mutation analysis [employer] Nom (Bld/Tiss) Comment . [facility] [place] Comment on above: Result:c.845G>A (p.C ho341Fqp) - Not Detectedc.187C>G (p.Wxf63Dop) - Not Detectedc.193A>T (p.Wnf86Nea) - Not DetectedNot associated with increased risk to develop clinicalsymptoms of Hereditary Hemochromatosis. In symptomaticindividuals, other causes of iron overload should beevaluated. See Additional Information and Comments.Additional Clinical Information:Hereditary hemochromatosis (HFE related) is an autosomalrecessive iron storage disorder. Patients may have agenetic diagnosis of hereditary hemochromatosis and nevershow clinical symptoms. Clinical symptoms typically appearbetween 40 to 60 years in males and after menopause infemales. Signs and symptoms may include organ damage,primarily in the liver, risk for hepatocellularcarcinoma, diabetes, and heart disease due to ironaccumulation. Life expectancy may be decreased inindividuals who develop cirrhosis. Treatment forclinically symptomatic individuals may includetherapeutic phlebotomy. Liver transplant may be used totreat end stage liver failure. For preventive care,monitoring for iron overload is recommended for patientswho are homozygous for c.845G>A (p.Vsl158Hrn) and have yetto experience clinical symptoms.Comments:The most common HFE variants associated with hereditaryhemochromatosis are c.845G>A (p.Ogd432Iuo), c.187C>G(p.Hki70Waz), c.193A>T (p.Nfv15Giu). While patientshomozygous for c.845G>A (p.Nge266Tvt) are the most likelyto present clinical symptoms, less than 10% developclinically significant iron overload with tissue and organdamage.Genetic counseling is recommended to discuss the potentialclinical implications of positive results, as well asrecommendations for testing family members.Genetic Coordinators are available for health careproviders to discuss results at [phone]).Test Details:Three variants analyzed:c.845G>A (p.Dou947Nnn), commonly referred to as C282Yc.187C>G (p.Mrk97Cor), commonly referred to as H63Dc.193A>T (p.Hiq42Usw), commonly referred to as V12PJwqejlt/Limitations:DNA Analysis of the HFE gene (NM_000410.4) was performedby PCR amplification followed by restriction enzymedigestion analyses. Results must be combined with clinicalinformation for the most accurate interpretation. Molecular-based testing is highly accurate, but as in any laboratorytest, diagnostic errors may occur. False positive or falsenegative results may occur for reasons that include geneticvariants, blood transfusions, bone marrow transplantation,somatic or tissue-specific mosaicism, mislabeled samples,or erroneous representation of family relationships.This test was developed and its performancecharacteristics determined by [facility]. It has not beencleared or approved by the Food and Drug Administration.References:Tom BR, Erasto PC, Aren KV, Benson LW, Justino ;[employer] Study of Liver Diseases.Diagnosis and management of hemochromatosis: 2011 practiceguideline by the [place] [employer] Association for the Study ofLiver Diseases. Hepatology. 2011 Oct;54(1):328-43. doi:10.1002/hep.04058. PMID: 22687796; PMCID: [id number].Fela G, Mere P, Kaylene PETERSEN, Sheila H, Catherine O,Isaiah S, Speedy I, Stanislaw M, Jada S. [facility] best practiceguidelines for the molecular genetic diagnosis ofhereditary hemochromatosis (HH). Eur J Hum Brigida. 2016Apr;24(4):479-90. doi: 10.1038/ejhg.2015.128. Epub 2014. PMID: 88330684; PMCID: [id number]. Ceruloplasminon 08-06-2024 Ceruloplasmin 31.5 mg/dL Normal 19.0-39.0 [facility] Comment on above: Result Comment: Perf ormed at: - [facility] [address] [id number] Adhesive Sprayer: Demarco Robles PhD, Phone: [phone] PERFORMED BY: [place] [address] PATHOLOGIST INTER COM SERVICER SAMM BEE M.D. Performed By: #### A LK PHOSIS, HBCAB, DAVID, L-K MICRO, HEMOCHROM, HBSAB, HAAB, SMAB, HCBIGM, HAABT, CERULOP, HCV RX PCR, HBSAG, ALPHA PHEN, MITOM2, IGG #### [facility] , #### CBC, [place], HEPATIC #### [address] Complete Blood Count Auto Di ffon 08-06-2024 Mean Corpuscular HGB Conc 33.3 g/dL Normal 32.0-35.0 [facility] Comment on above: Performed By: #### A LK PHOSIS, HBCAB, DAVID, L-K MICRO, HEMOCHROM, HBSAB, HAAB, SMAB, HCBIGM, HAABT, CERULOP, HCV RX PCR, HBSAG, ALPHA PHEN, MITOM2, IGG #### [facility] , #### CBC, [place], HEPATIC #### [address] NRBC% 0.1 /100{WBC} Normal 0-0.5 [facility] Comment on above: Performed By: #### A LK PHOSIS, HBCAB, DAVID, L-K MICRO, HEMOCHROM, HBSAB, HAAB, SMAB, HCBIGM, HAABT, CERULOP, HCV RX PCR, HBSAG, ALPHA PHEN, MITOM2, IGG #### [facility] , #### CBC, MAN[place]OR, HEPATIC #### [address] Eosinophils Auto (Bld) [#/Vo l]Ordered By: Patricia Caraballo on 08-06-2024 Eosinophils (Bld) [#/Vol] Automated eosinophil count 0.0-0.45 [facility] [place] Eosinophils [#/volume] in Bl ood by Automated countOrdered By: Imad Asaad on 08-06-2024 Eosinophils (Bld) [#/Vol] 0.1 10*3/uL Normal 0.0-0.45 [facility] [place] Comment on above: Performed By: #### A LK PHOSIS, HBCAB, DAVID, L-K MICRO, HEMOCHROM, HBSAB, HAAB, SMAB, HCBIGM, HAABT, CERULOP, HCV RX PCR, HBSAG, ALPHA PHEN, MITOM2, IGG #### [facility] , #### CBC, MAN[place]OR, HEPATIC #### [facility] [address] Eosinophils/100 WBC Auto (Bl d)Ordered By: Imad Asaad on 08-06-2024 Eosinophils/100 WBC (Bld) Automated eosinophil % . [facility] [place] Eosinophils/100 leukocytes i n Blood by Automated countOrdered By: Imad Asaad on 08-06-2024 Eosinophils/100 WBC (Bld) 1.4 % Normal . [facility] [place] Comment on above: Performed By: #### A HUSAM PHOSIS, HBCAB, DAVID, L-K MICRO, HEMOCHROM, HBSAB, HAAB, SMAB, HCBIGM, HAABT, CERULOP, HCV RX PCR, HBSAG, ALPHA PHEN, MITOM2, IGG #### [facility] , #### CBC, MANSOOR, HEPATIC #### [facility] [address] Erythrocyte distribution wid th Auto (RBC) [Ratio]Ordered By: Imad Asaad on 08-06-2024 Erythrocyte distribution width (RBC) [Ratio] Erythrocyte distribution width [Ratio] by Automated count 11.9-15.3 [facility] [place] Erythrocyte distribution wid th [Ratio] by Automated countOrdered By: Imad Asaad on 08-06-2024 Erythrocyte distribution width (RBC) [Ratio] 13.6 % Normal 11.9-15.3 [facility] [place] Comment on above: Performed By: #### A LK PHOSIS, HBCAB, DAVID, L-K MICRO, HEMOCHROM, HBSAB, HAAB, SMAB, HCBIGM, HAABT, CERULOP, HCV RX PCR, HBSAG, ALPHA PHEN, MITOM2, IGG #### [facility] , #### CBC, MANSOOR, HEPATIC #### [address] Erythrocytes [#/volume] in B lood by Automated countOrdered By: Imowen Caraballo on 08-06-2024 RBC (Bld) [#/Vol] 4.71 10*6/uL Normal 3.60-5.00 [facility] Comment on above: Performed By: #### A LK PHOSIS, HBCAB, DAVID, L-K MICRO, HEMOCHROM, HBSAB, HAAB, SMAB, HCBIGM, HAABT, CERULOP, HCV RX PCR, HBSAG, ALPHA PHEN, MITOM2, IGG #### [facility] , #### CBC, MANSOOR, HEPATIC #### [address] Ferritin [Mass/volume] in Se rum or PlasmaOrdered By: Imad Rajatad on 08-06-2024 Ferritin [Mass/Vol] Ferritin [Mass/volum e] in Serum or Plasma 11.0-306.8 [facility] [place] Ferritin [Mass/Vol] 15.3 ng/mL Normal 11.0-306.8 [facility] Comment on above: Result Comment: PERF ORMED BY: [place] [address] PATHOLOGIST INTER COM SERVICER SAMM BEE M.D. Performed By: #### A LK PHOSIS, HBCAB, DAVID, L-K MICRO, HEMOCHROM, HBSAB, HAAB, SMAB, HCBIGM, HAABT, CERULOP, HCV RX PCR, HBSAG, ALPHA PHEN, MITOM2, IGG #### [facility] , #### CBC, MANSOOR, HEPATIC #### [address] Globulin Calc (S) [Mass/Vol] Ordered By: Imad Rajatad on 08-06-2024 Globulin (S) [Mass/Vol] Serum globulin measurement by calculation (mass/volume) [facility] [place] Hematocrit Auto (Bld) [Volum e fraction]Ordered By: [facility] on 08-06-2024 Hematocrit (Bld) [Volume fraction] Hematocrit [Volume Fraction] of Blood by Automated count 34.0-46.4 [facility] [place] Hematocrit [Volume Fraction] of Blood by Automated countOrdered By: [facility] on 08-06-2024 Hematocrit (Bld) [Volume fraction] 44.2 % Normal 34.0-46.4 [facility] [place] Comment on above: Performed By: #### A LK PHOSIS, HBCAB, DAVID, L-K MICRO, HEMOCHROM, HBSAB, HAAB, SMAB, HCBIGM, HAABT, CERULOP, HCV RX PCR, HBSAG, ALPHA PHEN, MITOM2, IGG #### [facility] , #### CBC, MANSOOR, HEPATIC #### [facility] [address] Hemoglobin [Mass/volume] in BloodOrdered By: [facility] on 08-06-2024 Hemoglobin (Bld) [Mass/Vol] Hemoglobin [Mass/volume] in Blood 11.8-15.4 [facility] [place] Hemoglobin (Bld) [Mass/Vol] 14.7 g/dL Normal 11.8-15.4 [facility] [place] Comment on above: Performed By: #### A LK PHOSIS, HBCAB, DAVID, L-K MICRO, HEMOCHROM, HBSAB, HAAB, SMAB, HCBIGM, HAABT, CERULOP, HCV RX PCR, HBSAG, ALPHA PHEN, MITOM2, IGG #### [facility] , #### CBC, MANSOOR, HEPATIC #### [facility] [address] Hep C Ab wRfx to Qnt PCRon 0 08-06-2024 Hepatitis C Virus Antibody Non-Reactive Normal Non Reactive [facility] Comment on above: Performed By: #### A LK PHOSIS, HBCAB, DAVID, L-K MICRO, HEMOCHROM, HBSAB, HAAB, SMAB, HCBIGM, HAABT, CERULOP, HCV RX PCR, HBSAG, ALPHA PHEN, MITOM2, IGG #### [facility] , #### CBC, MANSOOR, HEPATIC #### [address] Interpretation Hepatitis C Comment Normal . [facility] Comment on above: Result Comment: Not infected with HCV unless early or acute infection is suspected (which may be delayed in an immunocompromised individual), or other evidence exists to indicate HCV infection. Performed By: #### A LK PHOSIS, HBCAB, DAVID, L-K MICRO, HEMOCHROM, HBSAB, HAAB, SMAB, HCBIGM, HAABT, CERULOP, HCV RX PCR, HBSAG, ALPHA PHEN, MITOM2, IGG #### [facility] , #### CBC, MANSOOR, HEPATIC #### [address] Hepatic Panelon 08-06-2024 Albumin [Mass/Vol] 4.7 g/dL Normal 3.5-5.7 [facility] Comment on above: Performed By: #### A LK PHOSIS, HBCAB, DAVID, L-K MICRO, HEMOCHROM, HBSAB, HAAB, SMAB, HCBIGM, HAABT, CERULOP, HCV RX PCR, HBSAG, ALPHA PHEN, MITOM2, IGG #### [facility] , #### CBC, MANSOOR, HEPATIC #### [address] ALP [Catalytic activity/Vol] 112 U/L High 34-104 [facility] Comment on above: Performed By: #### A LK PHOSIS, HBCAB, DAVID, L-K MICRO, HEMOCHROM, HBSAB, HAAB, SMAB, HCBIGM, HAABT, CERULOP, HCV RX PCR, HBSAG, ALPHA PHEN, MITOM2, IGG #### [facility] , #### CBC, MANSOOR, HEPATIC #### [address] Bilirubin,Indirect 0.2 mg/dL Normal [facility] Comment on above: Performed By: #### A LK PHOSIS, HBCAB, DAVID, L-K MICRO, HEMOCHROM, HBSAB, HAAB, SMAB, HCBIGM, HAABT, CERULOP, HCV RX PCR, HBSAG, ALPHA PHEN, MITOM2, IGG #### [facility] , #### CBC, MANSOOR, HEPATIC #### [facility] [address] Bilirubin.indirect [Mass/Vol] 0.10 mg/dL Normal 0.03-0.18 [facility] Comment on above: Performed By: #### A LK PHOSIS, HBCAB, DAVID, L-K MICRO, HEMOCHROM, HBSAB, HAAB, SMAB, HCBIGM, HAABT, CERULOP, HCV RX PCR, HBSAG, ALPHA PHEN, MITOM2, IGG #### [facility] , #### CBC, MANSOOR, HEPATIC #### [address] Hepatitis A Antibody IgMon 0 08-06-2024 Hepatitis A Antibody IgM Negative Normal Negative [facility] Comment on above: Result Comment: A ne gative anti-HAV IgM result suggests no recent or current HAV infection. Performed By: #### A LK PHOSIS, HBCAB, DAVID, L-K MICRO, HEMOCHROM, HBSAB, HAAB, SMAB, HCBIGM, HAABT, CERULOP, HCV RX PCR, HBSAG, ALPHA PHEN, MITOM2, IGG #### [facility] , #### CBC, MANSOOR, HEPATIC #### [facility] [address] Hepatitis A Antibody Totalon 08-06-2024 Hepatitis A Antibody Total Negative Normal Negative [facility] Comment on above: Result Comment: Comm ent: The HAV total antibody assay detects both IgG and IgM but does not differentiate between them. A negative result suggests susceptibility to infection. A positive result could be due to vaccination, previously resolved infection or active infection. Testing for HAV IgM should be performed if active HAV infection is suspected. [facility] offers profiles that will automatically reflex positive HAV total antibody results to IgM (e.g., panel #[id number] HAV Antibody w/ Rfx). Performed By: #### A LK PHOSIS, HBCAB, DAVID, L-K MICRO, HEMOCHROM, HBSAB, HAAB, SMAB, HCBIGM, HAABT, CERULOP, HCV RX PCR, HBSAG, ALPHA PHEN, MITOM2, IGG #### [facility] , #### CBC, MANSOOR, HEPATIC #### [facility] [address] Hepatitis A virus Ab [Presen ce] in Serum by ImmunoassayOrdered By: Imad Rashmi on 08-06-2024 HAV Ab IA Ql (S) Hepatitis A virus Ab [Presence] in Serum by Immunoassay Negative [facility] [place] Comment on above: Comment: The HAV tot al antibody assay detects both IgG andIgM but does not differentiate between them. A negativeresult suggests susceptibility to infection. A positiveresult could be due to vaccination, previously resolvedinfection or active infection. Testing for HAV IgM shouldbe performed if active HAV infection is suspected. [facility] profiles that will automatically reflex positive HAVtotal antibody results to IgM (e.g., panel #[id number] HAVAntibody w/ Rfx). HAV Ab IA Ql (S) Negative Negative [facility] Comment on above: Comment: The HAV tot al antibody assay detects both IgG andIgM but does not differentiate between them. A negativeresult suggests susceptibility to infection. A positiveresult could be due to vaccination, previously resolvedinfection or active infection. Testing for HAV IgM shouldbe performed if active HAV infection is suspected. [facility] profiles that will automatically reflex positive HAVtotal antibody results to IgM (e.g., panel #[id number] HAVAntibody w/ Rfx). Hepatitis A virus IgM antibo dy assayOrdered By: Imad Rajatad on 08-06-2024 Hepatitis A IgM Antibody Negative Negative [facility] [place] Comment on above: A negative anti-HAV IgM result suggests no recent orcurrent HAV infection. Hepatitis B Core Antibodyon 08-06-2024 Hepatitis B Core Antibody Negative Normal Negative [facility] Comment on above: Performed By: #### A LK PHOSIS, HBCAB, DAVID, L-K MICRO, HEMOCHROM, HBSAB, HAAB, SMAB, HCBIGM, HAABT, CERULOP, HCV RX PCR, HBSAG, ALPHA PHEN, MITOM2, IGG #### [facility] , #### CBC, MANSOOR, HEPATIC #### [facility] [address] Hepatitis B Core Antibody Ig Mon 08-06-2024 Hepatitis B Core Antibody IgM Negative Normal Negative [facility] Comment on above: Result Comment: Perf ormed at: - [facility] [address] [id number] Adhesive Sprayer: Demarco Robles PhD, Phone: [phone] Performed By: #### A LK PHOSIS, HBCAB, DAVID, L-K MICRO, HEMOCHROM, HBSAB, HAAB, SMAB, HCBIGM, HAABT, CERULOP, HCV RX PCR, HBSAG, ALPHA PHEN, MITOM2, IGG #### [facility] , #### CBC, MANSOOR, HEPATIC #### [address] Hepatitis B Surface Antibody on 08-06-2024 Hepatitis B Surface Antibody Non-Reactive Normal . [facility] Comment on above: Result Comment: Non Reactive: Not immune to HBV infection. Equivocal: Unable to determine if anti-HBs is present at levels consistent with immunity. Reactive: Anti-HBs concentration detected at greater than 10 mIU/mL. Individual is considered to be immune to infection with HBV. Performed By: #### A LK PHOSIS, HBCAB, DAVID, L-K MICRO, HEMOCHROM, HBSAB, HAAB, SMAB, HCBIGM, HAABT, CERULOP, HCV RX PCR, HBSAG, ALPHA PHEN, MITOM2, IGG #### [facility] , #### CBC, MANSOOR, HEPATIC #### [address] Hepatitis B Surface Antigeno n 08-06-2024 HBsAg Screen Negative Normal Negative [facility] Comment on above: Result Comment: PERF ORMED BY: [place] [address] PATHOLOGIST INTER COM SERVICER SAMM BEE M.D. Performed By: #### A LK PHOSIS, HBCAB, DAVID, L-K MICRO, HEMOCHROM, HBSAB, HAAB, SMAB, HCBIGM, HAABT, CERULOP, HCV RX PCR, HBSAG, ALPHA PHEN, MITOM2, IGG #### [facility] , #### CBC, MANSOOR, HEPATIC #### [address] Hepatitis B virus core IgM a ntibody assayOrdered By: Patricia Caraballo on 08-06-2024 Hepatitis B Core IgM Antibody Negative Negative [facility] [place] Comment on above: Performed at: [place] [id number] Director: Demarco Robles PhD, Phone: [phone] Hepatitis B virus core antib gurjit assayOrdered By: Patricia Caraballo on 08-06-2024 Hepatitis B Core Total Antibody Negative Negative [facility] [place] Hepatitis C virus IgG Ab [Pr esence] in Serum or Plasma by ImmunoassayOrdered By: Patricia Caraballo on 08-06-2024 HCV IgG IA Ql Hepatitis C virus Ig G Ab [Presence] in Serum or Plasma by Immunoassay Non Reactive [facility] [place] HCV IgG IA Ql Non-Reactive Non Reactive [facility] [place] Hereditary Hemochromatosis,D NAon 08-06-2024 Hereditary Hemochromatosis Comment Normal . [facility] Comment on above: Result Comment: Resu lt: c.845G>A (p.Cwm008Yyw) - Not Detected c.187C>G (p.Ijh18Att) - Not Detected c.193A>T (p.Nzb44Geh) - Not Detected Not associated with increased risk to develop clinical symptoms of Hereditary Hemochromatosis. In symptomatic individuals, other causes of iron overload should be evaluated. See Additional Information and Comments. Additional Clinical Information: Hereditary hemochromatosis (HFE related) is an autosomal recessive iron storage disorder. Patients may have a genetic diagnosis of hereditary hemochromatosis and never show clinical symptoms. Clinical symptoms typically appear between 40 to 60 years in males and after menopause in females. Signs and symptoms may include organ damage, primarily in the liver, risk for hepatocellular carcinoma, diabetes, and heart disease due to iron accumulation. Life expectancy may be decreased in individuals who develop cirrhosis. Treatment for clinically symptomatic individuals may include therapeutic phlebotomy. Liver transplant may be used to treat end stage liver failure. For preventive care, monitoring for iron overload is recommended for patients who are homozygous for c.845G>A (p.Lis222Ijr) and have yet to experience clinical symptoms. Comments: The most common HFE variants associated with hereditary hemochromatosis are c.845G>A (p.Ctl640Uva), c.187C>G (p.Hor95Eeq), c.193A>T (p.Dpb43Bhj). While patients homozygous for c.845G>A (p.Tzj994Ruw) are the most likely to present clinical symptoms, less than 10% develop clinically significant iron overload with tissue and organ damage. Genetic counseling is recommended to discuss the potential clinical implications of positive results, as well as recommendations for testing family members. Genetic Coordinators are available for health care providers to discuss results at [phone]). Test Details: Three variants analyzed: c.845G>A (p.Dav354Lwy), commonly referred to as C282Y c.187C>G (p.Ezt30Ucb), commonly referred to as H63D c.193A>T (p.Iqe06Pda), commonly referred to as S65C Methods/Limitations: DNA Analysis of the HFE gene (NM_000410.4) was performed by PCR amplification followed by restriction enzyme digestion analyses. Results must be combined with clinical information for the most accurate interpretation. Molecular- based testing is highly accurate, but as in any laboratory test, diagnostic errors may occur. False positive or false negative results may occur for reasons that include genetic variants, blood transfusions, bone marrow transplantation, somatic or tissue-specific mosaicism, mislabeled samples, or erroneous representation of family relationships. This test was developed and its performance characteristics determined by [facility]. It has not been cleared or approved by the Food and Drug Administration. References: Tom BR, Erasto PC, Aren KV, Benson LW, Justino ; [employer] Liver Diseases. Diagnosis and management of hemochromatosis: 2011 practice guideline by the [place] [employer] Liver Diseases. Hepatology. 2011 Oct;54(1):328-43. doi: 10.1002/hep.85784. PMID: 36210062; PMCID: [id number]. Fela G, Mere P, Kaylene DW, Sheila H, Catherine O, Isaiah S, Speedy I, Stanislaw M, Jada S. [facility] best practice guidelines for the molecular genetic diagnosis of hereditary hemochromatosis (HH). Eur J Hum Brigida. 2016 Jul;24(4):479-95. doi: 10.1038/ejhg.2015.128. Epub 2014Oct 09. PMID: 48518050; PMCID: [id number]. Performed By: #### A LK PHOSIS, HBCAB, DAVID, L-K MICRO, HEMOCHROM, HBSAB, HAAB, SMAB, HCBIGM, HAABT, CERULOP, HCV RX PCR, HBSAG, ALPHA PHEN, MITOM2, IGG #### [facility] , #### CBC, MANSOOR, HEPATIC #### [address] Reviewed by: Comment Normal . [facility] Comment on above: Result Comment: Tech nical Component performed at [facility] [place] Professional Component performed by: Ailyn Ford, PhD, [facility] [id number], [facility], [address] [facility] [address] Performed at: - [facility] [place] [address] [facility], [place], [place] [id number] Adhesive Sprayer: Víctor Urbano [facility], Phone: [phone] PERFORMED BY: [place] [address] PATHOLOGIST INTER COM SERVICER SAMM BEE M.D. Performed By: #### A LK PHOSIS, HBCAB, DAVID, L-K MICRO, HEMOCHROM, HBSAB, HAAB, SMAB, HCBIGM, HAABT, CERULOP, HCV RX PCR, HBSAG, ALPHA PHEN, MITOM2, IGG #### [facility] , #### CBC, MANSOOR, HEPATIC #### [address] Immunoglobulin Deshaun Immunoglobulin G 1178 mg/dL Normal [id number] [facility] Comment on above: Result Comment: Perf ormed at: CB - [facility] [address] [id number] Adhesive Sprayer: Demarco Robles PhD, Phone: [phone] Performed By: #### A LK PHOSIS, HBCAB, DAVID, L-K MICRO, HEMOCHROM, HBSAB, HAAB, SMAB, HCBIGM, HAABT, CERULOP, HCV RX PCR, HBSAG, ALPHA PHEN, MITOM2, IGG #### [facility] , #### CBC, MANSOOR, HEPATIC #### [facility] [address] Leukocytes [#/volume] correc jose for nucleated erythrocytes in Blood by Automated counOrdered By: Imad Asaad on 08-06-2024 WBC corrected for nucl RBC Auto (Bld) [#/Vol] Leukocytes [#/volume] corrected for nucleated erythrocytes in Blood by Automated coun 3.8-11.6 [facility] WBC corrected for nucl RBC Auto (Bld) [#/Vol] 8.4 10*3/uL 3.8-11.6 [facility] Leukocytes [#/volume] in Blo od by Automated countOrdered By: Imad Asaad on 08-06-2024 WBC (Bld) [#/Vol] 8.4 10*3/uL Normal 3.8-11.6 [facility] Comment on above: Performed By: #### A LK PHOSIS, HBCAB, DAVID, L-K MICRO, HEMOCHROM, HBSAB, HAAB, SMAB, HCBIGM, HAABT, CERULOP, HCV RX PCR, HBSAG, ALPHA PHEN, MITOM2, IGG #### [facility] , #### CBC, MANSOOR, HEPATIC #### [facility] [address] Liver-Kidney Microsomal Abon 08-06-2024 Liver-Kidney Microsomal Ab 1.4 Normal 0.0-20.0 [facility] Comment on above: Result Comment: Nega tive 0.0 - 20.0 Equivocal 20.1 - 24.9 Positive >24.9 LKM type 1 antibodies are detected in patients with autoimmune hepatitis type 2 and in up to 8% of patients with chronic HCV infection. Performed By: #### A LK PHOSIS, HBCAB, DAVID, L-K MICRO, HEMOCHROM, HBSAB, HAAB, SMAB, HCBIGM, HAABT, CERULOP, HCV RX PCR, HBSAG, ALPHA PHEN, MITOM2, IGG #### [facility] , #### CBC, MANSOOR, HEPATIC #### [address] Lymphocytes Auto (Bld) [#/Vo l]Ordered By: Imad Asaad on 08-06-2024 Lymphocytes (Bld) [#/Vol] Lymphocytes [#/volume] in Blood by Automated count 1.00-4.8 [facility] Lymphocytes [#/volume] in Bl ood by Automated countOrdered By: Imad Asaad on 08-06-2024 Lymphocytes (Bld) [#/Vol] 1.9 10*3/uL Normal 1.00-4.8 [facility] Comment on above: Performed By: #### A LK PHOSIS, HBCAB, DAVID, L-K MICRO, HEMOCHROM, HBSAB, HAAB, SMAB, HCBIGM, HAABT, CERULOP, HCV RX PCR, HBSAG, ALPHA PHEN, MITOM2, IGG #### [facility] , #### CBC, MANSOOR, HEPATIC #### [address] Lymphocytes/100 WBC Auto (Bl d)Ordered By: Imad Asaad on 08-06-2024 Lymphocytes/100 WBC (Bld) Lymphocytes/100 leukocytes in Blood by Automated count . [facility] Lymphocytes/100 leukocytes i n Blood by Automated countOrdered By: Imad Asaad on 08-06-2024 Lymphocytes/100 WBC (Bld) 22.9 % Normal . [facility] Comment on above: Performed By: #### A LK PHOSIS, HBCAB, DAVID, L-K MICRO, HEMOCHROM, HBSAB, HAAB, SMAB, HCBIGM, HAABT, CERULOP, HCV RX PCR, HBSAG, ALPHA PHEN, MITOM2, IGG #### [facility] , #### CBC, MANSOOR, HEPATIC #### [facility] [address] MCH Auto (RBC) [Entitic mass ]Ordered By: Imad Asaad on 08-06-2024 MCH (RBC) [Entitic mass] MCH [Entitic mass] by Automated count 24.7-34.3 [facility] MCH [Entitic mass] by Automa jose countOrdered By: Imad Asaad on 08-06-2024 MCH (RBC) [Entitic mass] 31.3 pg Normal 24.7-34.3 [facility] Comment on above: Performed By: #### A LK PHOSIS, HBCAB, DAVID, L-K MICRO, HEMOCHROM, HBSAB, HAAB, SMAB, HCBIGM, HAABT, CERULOP, HCV RX PCR, HBSAG, ALPHA PHEN, MITOM2, IGG #### [facility] , #### CBC, MANSOOR, HEPATIC #### [facility] [address] [place] [address] MCHC Auto (RBC) [Mass/Vol]Or dered By: Imad Asaad on 08-06-2024 MCHC (RBC) [Mass/Vol] MCHC [Mass/volume] by Automated count 32.0-35.0 [facility] MCHC (RBC) [Mass/Vol] 33.3 g/dL 32.0-35.0 [facility] MCV Auto (RBC) [Entitic vol] Ordered By: Imad Asaad on 08-06-2024 MCV (RBC) [Entitic vol] MCV [Entitic volume] by Automated count 80-100 [facility] MCV [Entitic volume] by Auto mated countOrdered By: Imad Asaad on 08-06-2024 MCV (RBC) [Entitic vol] 94.0 fL Normal 80-100 [facility] Comment on above: Performed By: #### A LK PHOSIS, HBCAB, DAVID, L-K MICRO, HEMOCHROM, HBSAB, HAAB, SMAB, HCBIGM, HAABT, CERULOP, HCV RX PCR, HBSAG, ALPHA PHEN, MITOM2, IGG #### [facility] , #### CBC, MANSOOR, HEPATIC #### [address] Mitochondrial (M2) Antibodyo n 08-06-2024 Mitochondrial (M2) Antibody <20.0 Normal 0.0-20.0 [facility] Comment on above: Result Comment: Nega tive 0.0 - 20.0 Equivocal 20.1 - 24.9 Positive >24.9 Mitochondrial (M2) Antibodies are found in 90-96% of patients with primary biliary cirrhosis. Performed at: [address] [id number] Adhesive Sprayer: Demarco Robles PhD, Phone: [phone] Performed By: #### A HUSAM PHOSIS, HBCAB, DAVID, L-K MICRO, HEMOCHROM, HBSAB, HAAB, SMAB, HCBIGM, HAABT, CERULOP, HCV RX PCR, HBSAG, ALPHA PHEN, MITOM2, IGG #### [facility] , #### CBC, MANSOOR, HEPATIC #### [address] Monocytes Auto (Bld) [#/Vol] Ordered By: Imad Asaad on 08-06-2024 Monocytes (Bld) [#/Vol] Automated blood monocyte count 0.0-0.8 [facility] Monocytes [#/volume] in Bloo d by Automated countOrdered By: Imad Asaad on 08-06-2024 Monocytes (Bld) [#/Vol] 0.5 10*3/uL Normal 0.0-0.8 [facility] Comment on above: Performed By: #### A LK PHOSIS, HBCAB, DAVID, L-K MICRO, HEMOCHROM, HBSAB, HAAB, SMAB, HCBIGM, HAABT, CERULOP, HCV RX PCR, HBSAG, ALPHA PHEN, MITOM2, IGG #### [facility] , #### CBC, MANSOOR, HEPATIC #### [facility] [address] [place] [address] [place] Monocytes/100 WBC Auto (Bld) Ordered By: Imad Asaad on 08-06-2024 Monocytes/100 WBC (Bld) Automated monocyte % . [facility] Monocytes/100 leukocytes in Blood by Automated countOrdered By: Imad Asaad on 08-06-2024 Monocytes/100 WBC (Bld) 5.8 % Normal . [facility] Comment on above: Performed By: #### A LK PHOSIS, HBCAB, DAVID, L-K MICRO, HEMOCHROM, HBSAB, HAAB, SMAB, HCBIGM, HAABT, CERULOP, HCV RX PCR, HBSAG, ALPHA PHEN, MITOM2, IGG #### [facility] , #### CBC, MANSOOR, HEPATIC #### [facility] [address] [place] [address] [place] Neutrophils Auto (Bld) [#/Vo l]Ordered By: Imad Asaad on 08-06-2024 Neutrophils (Bld) [#/Vol] Neutrophils [#/volume] in Blood by Automated count 1.8-7.7 [facility] Neutrophils [#/volume] in Bl ood by Automated countOrdered By: Imad Asaad on 08-06-2024 Neutrophils (Bld) [#/Vol] 5.8 10*3/uL Normal 1.8-7.7 [facility] Comment on above: Performed By: #### A LK PHOSIS, HBCAB, DAVID, L-K MICRO, HEMOCHROM, HBSAB, HAAB, SMAB, HCBIGM, HAABT, CERULOP, HCV RX PCR, HBSAG, ALPHA PHEN, MITOM2, IGG #### [facility] , #### CBC, MANSOOR, HEPATIC #### [facility] [address] [place] [address] [place] Neutrophils/100 WBC Auto (Bl d)Ordered By: Imad Asaad on 08-06-2024 Neutrophils/100 WBC (Bld) Automated neutrophil % . [facility] Neutrophils/100 leukocytes i n Blood by Automated countOrdered By: Imad Asaad on 08-06-2024 Neutrophils/100 WBC (Bld) 69.3 % Normal . [facility] Comment on above: Performed By: #### A LK PHOSIS, HBCAB, DAVID, L-K MICRO, HEMOCHROM, HBSAB, HAAB, SMAB, HCBIGM, HAABT, CERULOP, HCV RX PCR, HBSAG, ALPHA PHEN, MITOM2, IGG #### [facility] , #### CBC, MANSOOR, HEPATIC #### [facility] [address] No Panel InformationOrdered By: Patricia Caraballo on 08-06-2024 Hemochromatosis Note Comment . [facility] Comment on above: Technical Component performed at [facility] RTPProfessional Component performed by:Ailyn Ford, PhD, [id number], [facility], [address] [facility] [id number] at: - [facility] [id number], [place], [place] [id number] Director: Víctor Urbano [facility], Phone: [phone] Hepatitis C Interpretation Comment . [facility] Comment on above: Not infected with HC V unless early or acute infection issuspected (which may be delayed in an immunocompromisedindividual), or other evidence exists to indicate HCVinfection. Nucleated erythrocytes [Pres ence] in Blood by Automated countOrdered By: Patricia Caraballo on 08-06-2024 Nucleated RBC Auto Ql (Bld) Nucleated erythrocytes [Presence] in Blood by Automated count 0-0.5 [facility] Nucleated RBC Auto Ql (Bld) 0.1 /100{WBC} 0-0.5 [facility] Platelet mean volume Auto (B ld) [Entitic vol]Ordered By: Imad Rajatad on 08-06-2024 Platelet mean volume (Bld) [Entitic vol] Platelet mean volume [Entitic volume] in Blood by Automated count 6.3-10.7 [facility] Platelet mean volume [Entiti c volume] in Blood by Automated countOrdered By: Patricia Caraballo on 08-06-2024 Platelet mean volume (Bld) [Entitic vol] 9.4 fL Normal 6.3-10.7 [facility] Comment on above: Performed By: #### A LK PHOSIS, HBCAB, DAVID, L-K MICRO, HEMOCHROM, HBSAB, HAAB, SMAB, HCBIGM, HAABT, CERULOP, HCV RX PCR, HBSAG, ALPHA PHEN, MITOM2, IGG #### [facility] , #### CBC, MANSOOR, HEPATIC #### [address] Platelets Auto (Bld) [#/Vol] Ordered By: Imad Asaad on 08-06-2024 Platelets (Bld) [#/Vol] Platelets [#/volume] in Blood by Automated count 150-450 [facility] Platelets [#/volume] in Bloo d by Automated countOrdered By: Imad Asaad on 08-06-2024 Platelets (Bld) [#/Vol] 236 10*3/uL Normal 150-450 [facility] Comment on above: Performed By: #### A LK PHOSIS, HBCAB, DAVID, L-K MICRO, HEMOCHROM, HBSAB, HAAB, SMAB, HCBIGM, HAABT, CERULOP, HCV RX PCR, HBSAG, ALPHA PHEN, MITOM2, IGG #### [facility] , #### CBC, MANSOOR, HEPATIC #### [address] Protein [Mass/volume] in Ser um or PlasmaOrdered By: Imad Asaad on 08-06-2024 Protein [Mass/Vol] Protein [Mass/volume ] in Serum or Plasma 6.4-8.9 [facility] Protein [Mass/Vol] 7.7 g/dL Normal 6.4-8.9 [facility] Comment on above: Performed By: #### A LK PHOSIS, HBCAB, DAVID, L-K MICRO, HEMOCHROM, HBSAB, HAAB, SMAB, HCBIGM, HAABT, CERULOP, HCV RX PCR, HBSAG, ALPHA PHEN, MITOM2, IGG #### [facility] , #### CBC, MANSOOR, HEPATIC #### [address] [address] [place] RBC Auto (Bld) [#/Vol]Ordere d By: Patricia Caraballo on 08-06-2024 RBC (Bld) [#/Vol] Erythrocytes [#/volu me] in Blood by Automated count 3.60-5.00 [facility] Serum globulin measurement b y calculation (mass/volume)Ordered By: Patricia Caraballo on 08-06-2024 Globulin (S) [Mass/Vol] 3.0 g/dL Normal [facility] Comment on above: Performed By: #### A LK PHOSIS, HBCAB, DAVID, L-K MICRO, HEMOCHROM, HBSAB, HAAB, SMAB, HCBIGM, HAABT, CERULOP, HCV RX PCR, HBSAG, ALPHA PHEN, MITOM2, IGG #### [facility] , #### CBC, MANSOOR, HEPATIC #### [facility] [address] Serum hepatitis B virus surf radha antibody detectionOrdered By: Patricia Caraballo on 08-06-2024 HBV surface Ab Ql (S) Hepatitis B virus surface Ab [Presence] in Serum . [facility] Comment on above: Non Reactive: Not im mune to HBV infection. Equivocal: Unable to determine if anti-HBs is present at levels consistent with immunity. Reactive: Anti-HBs concentration detected at greater than 10 mIU/mL. Individual is considered to be immune to infection with HBV. HBV surface Ab Ql (S) Non-Reactive . [facility] Comment on above: Non Reactive: Not im mune to HBV infection. Equivocal: Unable to determine if anti-HBs is present at levels consistent with immunity. Reactive: Anti-HBs concentration detected at greater than 10 mIU/mL. Individual is considered to be immune to infection with HBV. Serum homogeneous pattern an tinuclear antibody (DAVID) titerOrdered By: Patricia Caraballo on 08-06-2024 Homogenous nuclear Ab pattern (S) [Titer] Serum homogeneous pattern antinuclear antibody (DAVID) titer [facility] Homogenous nuclear Ab pattern (S) [Titer] N/A [facility] Serum mitochondria M2 IgG an tibody assay (units/volume)Ordered By: Patricia Caraballo on 08-06-2024 Mitochondria M2 IgG Qn (S) Serum mitochondria M2 IgG antibody assay (units/volume) 0.0-20.0 [facility] Comment on above: Negative 0.0 - 20.0 Equivocal 20.1 - 24.9 Positive >24.9Mitochondrial (M2) Antibodies are found in 90-96% ofpatients with primary biliary cirrhosis.Performed at: [facility] [place] [id number] Director: Demarco Robles PhD, Phone: [phone] Mitochondria M2 IgG Qn (S) <20.0 Units 0.0-20.0 [facility] Comment on above: Negative 0.0 - 20.0 Equivocal 20.1 - 24.9 Positive >24.9Mitochondrial (M2) Antibodies are found in 90-96% ofpatients with primary biliary cirrhosis.Performed at: [facility] [place] [id number] Director: Demarco Robles PhD, Phone: [employer] Serum nuclear antibody titer Ordered By: Patricia Caraballo on 08-06-2024 Nuclear Ab (S) [Titer] Serum nuclear ant ibody titer . [facility] Comment on above: Negative <1:80 Borde rline 1:80 Positive >1:80ICAP nomenclature: AC-0For more information about Hep-2 cell patterns useANApatterns.org, the official website for theInternational Consensus on Antinuclear Antibody (DAVID)Patterns (ICAP).Performed at: [facility] [place], [place] [id number] Director: Demarco Robles PhD, Phone: [phone] Nuclear Ab (S) [Titer] Negative . [facility] Comment on above: Negative <1:80 Borde rline 1:80 Positive >1:80ICAP nomenclature: AC-0For more information about Hep-2 cell patterns useANApatterns.org, the official website for theInternational Consensus on Antinuclear Antibody (DAVID)Patterns (ICAP).Performed at: [facility] [place], [place] [id number] Director: Demarco Robles PhD, Phone: [phone] Serum or plasma IgG measurem ent (mass/volume)Ordered By: Patricia Caraballo on 08-06-2024 IgG [Mass/Vol] IgG [Mass/volume] in Serum or Plasma [address] [place] [address] Comment on above: Performed at: [facility] [employer] [address] [id number] Director: Demarco Robles PhD, Phone: [phone] IgG [Mass/Vol] 1178 mg/dL [address] [place] [address] Comment on above: Performed at: [facility] [id number] Director: Demarco Robles PhD, Phone: [phone] Serum or plasma albumin/glob ulin mass ratioOrdered By: Patricia Caraballo on 08-06-2024 Albumin/Globulin [Mass ratio] Serum or plasma albumin/globulin mass ratio [facility] Albumin/Globulin [Mass ratio] 1.6 {ratio} Normal [facility] Comment on above: Performed By: #### A LK PHOSIS, HBCAB, DAVID, L-K MICRO, HEMOCHROM, HBSAB, HAAB, SMAB, HCBIGM, HAABT, CERULOP, HCV RX PCR, HBSAG, ALPHA PHEN, MITOM2, IGG #### [facility] , #### CBC, MANSOOR, HEPATIC #### [address] Serum or plasma alkaline stefan sphatase measurement (enzymatic activity/volume)Ordered By: Patricia Caraballo on 08-06-2024 ALP [Catalytic activity/Vol] 146 U/L High 44-121 [facility] Serum or plasma alpha 1 anti trypsin measurement (mass/volume)Ordered By: Patricia Caraballo on 08-06-2024 Alpha 1 antitrypsin [Mass/Vol] Serum mmffy-4-qpwszexvsvx measurement 100-188 [facility] Alpha 1 antitrypsin [Mass/Vol] 142 mg/dL 100-188 [facility] Serum or plasma alpha 1 anti trypsin phenotyping identification by immunofixationOrdered By: Patricia Caraballo on 08-06-2024 Alpha 1 antitrypsin phenotyping [employer] Serum or plasma alpha 1 antitrypsin phenotyping identification by immunofixation . [facility] Comment on above: MM Phenotype is co nsidered to be normal , producingnormal serum levels of kesqw-2-kbxlrmzf inhibitor andnot associated with clinical disease. Associated E4Ukuzkf serum levels in other phenotypes and theirincidence in the general population are shown in thetable below.Phenotype Population % function A-1-AT Conc.* Incidence % compared to MM (Typical Range) MM 86.5% 100% (96 - 189) MS 8.0% 86% (83 - 161) MZ 3.9% 61% (60 - 111) FM 0.4% 100% (93 - 191) SZ 0.3% 41% (42 - 75) SS 0.1% 64% (62 - 119) ZZ 0.05% 19% (16 - 38) FS 0.05% 70% (70 - 128) FZ Unknown 46% (44 - 88) FF Unknown Unknown*A-1-AT concentration in the homozygous MM phenotype is taken as the reference normal. Percent deficiency in each phenotype is reported relative to this reference. Ranges used to confirm phenotype.Performed at: - [facility] [id number] Director: Demarco Robles PhD, Phone: [phone] at: [facility] [address] [id number] Director: Dena Gibbons MD, Phone: [phone] Alpha 1 antitrypsin phenotyping Immunofixation Nom Mm . [facility] Comment on above: MM Phenotype is co nsidered to be normal , producingnormal serum levels of tfylo-9-dbnzifzb inhibitor andnot associated with clinical disease. Associated I7Hmkwbr serum levels in other phenotypes and theirincidence in the general population are shown in thetable below.Phenotype Population % function A-1-AT Conc.* Incidence % compared to MM (Typical Range) MM 86.5% 100% (96 - 189) MS 8.0% 86% (83 - 161) MZ 3.9% 61% (60 - 111) FM 0.4% 100% (93 - 191) SZ 0.3% 41% (42 - 75) SS 0.1% 64% (62 - 119) ZZ 0.05% 19% (16 - 38) FS 0.05% 70% (70 - 128) FZ Unknown 46% (44 - 88) FF Unknown Unknown*A-1-AT concentration in the homozygous MM phenotype is taken as the reference normal. Percent deficiency in each phenotype is reported relative to this reference. Ranges used to confirm phenotype.Performed at: [facility] [id number] Director: Demarco Robles PhD, Phone: [phone] at: [facility] [employer] [id number] Director: Dena Gibbons MD, Phone: [phone] Serum or plasma bone alkalin e phosphatase/total alkaline phosphatase ratioOrdered By: Patricia Caraballo on 08-06-2024 ALP Bone [Catalytic fraction] Serum or plasma bone alkaline phosphatase/total alkaline phosphatase ratio [facility] ALP Bone [Catalytic fraction] 35 % [facility] Serum or plasma ceruloplasmi n measurement (mass/volume)Ordered By: Patricia Caraballo on 08-06-2024 Ceruloplasmin [Mass/Vol] Serum or plasma ceruloplasmin measurement (mass/volume) 19.0-39.0 [facility] Comment on above: Performed at: [employer] [address] [id number] Director: Demarco Robles PhD, Phone: [phone] Ceruloplasmin [Mass/Vol] 31.5 mg/dL 19.0-39.0 [facility] Comment on above: Performed at: [employer] [address] [id number] Director: Dmearco Robles PhD, Phone: [phone] Serum or plasma hepatitis B virus surface antigen detection by immunoassayOrdered By: Patricia Caraballo on 08-06-2024 HBV surface Ag IA Ql Hepatitis B virus surface Ag [Presence] in Serum or Plasma by Immunoassay Negative [facility] HBV surface Ag IA Ql Negative Negative [facility] Serum or plasma intestinal a lkaline phosphatase/total alkaline phosphatase ratio (catOrdered By: Patricia Caraballo on 08-06-2024 ALP Intest [Catalytic fraction] Serum or plasma intestinal alkaline phosphatase/total alkaline phosphatase ratio (cat 0-18 [facility] Comment on above: Performed at: [employer] [address] [id number] Director: Demarco Robles PhD, Phone: [phone] ALP Intest [Catalytic fraction] 1 % 0-18 [facility] Comment on above: Performed at: [employer] [address] [id number] Director: Demarco Robles PhD, Phone: [phone] Serum or plasma lipoprotein a measurement (moles/volume)Ordered By: Patricia Caraballo on 08-06-2024 Lipoprotein a [Moles/Vol] Serum or plasma lipoprotein a measurement (moles/volume) 0.0-20.0 [facility] [place] Comment on above: Negative 0.0 - 20.0 Equivocal 20.1 - 24.9 Positive >24.9LKM type 1 antibodies are detected in patients withautoimmune hepatitis type 2 and in up to 8% ofpatients with chronic HCV infection. Lipoprotein a [Moles/Vol] 1.4 Units 0.0-20.0 [facility] [place] Comment on above: Negative 0.0 - 20.0 Equivocal 20.1 - 24.9 Positive >24.9LKM type 1 antibodies are detected in patients withautoimmune hepatitis type 2 and in up to 8% ofpatients with chronic HCV infection. Serum or plasma non-glucuron idated bilirubin measurement (mass/volume)Ordered By: Patricia Caraballo on 08-06-2024 Bilirubin.indirect [Mass/Vol] Serum or plasma non-glucuronidated bilirubin measurement (mass/volume) [facility] [place] Bilirubin.indirect [Mass/Vol] 0.2 mg/dL [facility] [place] Smooth Muscle Antibodyon Smooth Muscle Antibody 5 Normal 0-19 e [facility] Comment on above: Result Comment: Nega tive 0 - 19 Weak positive 20 - 30 Moderate to strong positive >30 Actin Antibodies are found in 52-85% of patients with autoimmune hepatitis or chronic active hepatitis and in 22% of patients with primary biliary cirrhosis. Performed By: #### A LK PHOSIS, HBCAB, DAVID, L-K MICRO, HEMOCHROM, HBSAB, HAAB, SMAB, HCBIGM, HAABT, CERULOP, HCV RX PCR, HBSAG, ALPHA PHEN, MITOM2, IGG #### [facility] , #### CBC, MANSOOR, HEPATIC #### [facility] [address] Total alkaline phosphatase m easurement with isoenzyme panelOrdered By: Imad Asaad on 08-06-2024 ALP Iso Pnl Total alkaline phosphatase measurement with isoenzyme panel [facility] [place] ALP Iso Pnl 64 % [facility] [place] WBC Auto (Bld) [#/Vol]Ordere d By: Imad Asaad on 08-06-2024 WBC (Bld) [#/Vol] Leukocytes [#/volume ] in Blood by Automated count 3.8-11.6 [facility] [place] ALL GAMMA GLUTAMYL TRANSPEPT IDASEon 05-30-2024 Amylase [Catalytic activity/Vol] 383 U/L High 8 - 55 U/L [facility] CMP (CMP) (FOR REMOTE FH C USE)on 05-30-2024 Albumin [Mass/Vol] 3.8 g/dL 3.4 - 5.0 g/dL [facility] ALBUMIN GLOBULIN RATIO 0.9 NO [facility] ALP [Catalytic activity/Vol] 130 U/L High 46 - 116 U/L [facility] ALT [Catalytic activity/Vol] 38 U/L 14 - 59 U/L [facility] Anion gap [Moles/Vol] 13.5 mmol/L NO [facility] AST [Catalytic activity/Vol] 25 U/L 15 - 37 U/L [facility] Bilirubin [Mass/Vol] 0.3 mg/dL 0.2 - 1 .0 mg/dL [facility] Calcium [Mass/Vol] 9.3 mg/dL 8.5 - 10. 1 mg/dL [facility] Chloride [Moles/Vol] 104 mmol/L 98 - 10 7 mmol/L [facility] CO2 [Moles/Vol] 25.8 mmol/L 21.0 - 32.0 mmol/L [facility] Creatinine [Mass/Vol] 0.85 mg/dL 0.55 - 1.02 mg/dL [facility] GFR/1.73 sq M.predicted CKD-EPI (S/P/Bld) [Vol rate/Area] >60 >=60 mL/min/1.7 3m 2 [facility] Globulin (S) [Mass/Vol] 4 g/dL [facility] Glucose [Mass/Vol] 87 mg/dL 74 - 106 mg/dL [facility] Potassium [Moles/Vol] 4.3 mmol/L 3.5 - 5.1 mmol/L [facility] Protein [Mass/Vol] 7.8 g/dL 6.4 - 8.2 g/dL [facility] Sodium [Moles/Vol] 139 mmol/L 136 - 145 mmol/L [facility] TBH EGFR-NON AF HAITIAN >60 >=60 mL/min/1.7 3m 2 [facility] Urea nitrogen [Mass/Vol] 8 mg/dL 7.0 - 18.0 mg/dL [facility] Urea nitrogen/Creatinine [Mass ratio] 9.4 mg/mg [facility] No Panel Informationon 05-30 Interpretation and review of laboratory results Abnormal [facility] ALL GAMMA GLUTAMYL TRANSPEPT IDASEon 02-23-2024 Amylase [Catalytic activity/Vol] 366 U/L High 8 - 55 U/L [facility] HMHP LIVER PANELon Albumin [Mass/Vol] 3.8 g/dL 3.4 - 5.0 g/dL [facility] ALBUMIN GLOBULIN RATIO 0.9 [facility] ALP [Catalytic activity/Vol] 134 U/L High 46 - 116 U/L [facility] ALT [Catalytic activity/Vol] 37 U/L 14 - 59 U/L [facility] AST [Catalytic activity/Vol] 25 U/L 15 - 37 U/L [facility] Bilirubin [Mass/Vol] 0.4 mg/dL 0.2 - 1 .0 mg/dL [facility] Bilirubin.indirect [Mass/Vol] 0.1 mg/dL 0.0 - 0.2 mg/dL [facility] Globulin (S) [Mass/Vol] 4.1 g/dL [facility] Protein [Mass/Vol] 7.9 g/dL 6.4 - 8.2 g/dL [facility] No Panel Informationon 02-22 Interpretation and review of laboratory results Abnormal [facility] Surgical Pathologyon 10-11-2 024 Surgical Pathology Normal [facility] Comment on above: Result Comment: [facility] [address] [place] [address] Surgical Pathology Consultation Patient Name:EMILY MOY:1985 (Age: 38)Gender:FTaken:01/13/2024eported:01/23/2024hysician(s):Gurpreet Allison M.D. ([phone])Copy To: Rec. #:[id number]: #[id number] Final Pathologic Diagnosis Ovaries, bilateral oophorectomy: Endometriosis involves ovarian and tubal elements. Hemorrhagic fibrous adhesions. Report Electronically Signed Out gr01/23/2024John Parkinson MD Interpretation performed at [facility], [address] [place] [address], License number: [id number]. Clinical History Pelvic pain, pelvic mass. Gross [...] parenchyma is pink-montoya, glistening with multiple scattered aszz-bbvw-pwc to yellow-montoya times the bone marrow, smooth lined simple cysts, and without definitive papillations or excrescences identified. Lathe Machinist sections of the specimen are submitted in cassettes A-J (to include disrupted cyst in cassette A/B). (10, ss, [id number], m6) BETINA robledo/01/13/2024NSK Specimen(s) Received Ovary, bilateral Fee Codes(s): 1; 549[address] ALL GAMMA GLUTAMYL TRANSPEPT IDASEon 01-09-2024 Amylase [Catalytic activity/Vol] 479 U/L High 8 - 55 U/L [facility] Interpretation and review of laboratory results Abnormal [facility] CBC AND AUTO DIFFon 01-02-20 ABSOLUTE BASOPHIL 0.1 X10E9/L Normal 0.0-0.2 [facility] Comment on above: Performed By: #### C ANALIA, CMP #### [facility] ([id number]) [address], [address] [place] [address] ABSOLUTE NEUTROPHIL 5.3 X10E9/L Normal 1.5-6.6 [facility] Comment on above: Performed By: #### C ANALIA, CMP #### [facility] ([id number]) [address], [address] [place] [address] Basophils/100 WBC (Bld) 1.1 % Normal [facility] Comment on above: Performed By: #### C ANALIA, CMP #### [facility] ([id number]) [address], [address] [place] [address] Eosinophils (Bld) [#/Vol] 0.1 10*3/uL Normal 0.0-0.4 [facility] Comment on above: Performed By: #### C ANALIA, CMP #### [facility] ([id number]) [address], [address] [place] [address] Eosinophils/100 WBC (Bld) 1.4 % Normal [facility] Comment on above: Performed By: #### Santos HELMS, CMP #### [facility] ([id number]) [address], [address] [place] [address] Erythrocyte distribution width (RBC) [Ratio] 14.2 % Normal 11.5-15.0 [facility] Comment on above: Performed By: #### C ANALIA, CMP #### [facility] ([id number]) [address], [address] [place] [address] Hematocrit (Bld) [Volume fraction] 41.0 % Normal 35-47 [facility] Comment on above: Performed By: #### C ANALIA, CMP #### [facility] ([id number]) [address], [address] [place] [address] Hemoglobin (Bld) [Mass/Vol] 14.1 g/dL Normal 11.7-15.5 [facility] Comment on above: Performed By: #### C BCA, CMP #### [facility] ([id number]) [address], [address] [place] [address] Lymphocytes (Bld) [#/Vol] 2.1 10*3/uL Normal 1.0-3.5 [facility] Comment on above: Performed By: #### C ANALIA, CMP #### [facility] ([id number]) [address], [address] [place] [address] Lymphocytes/100 WBC (Bld) 25.7 % Normal [facility] Comment on above: Performed By: #### C ANALIA, CMP #### [facility] ([id number]) [address] [place] [address] MCH (RBC) [Entitic mass] 31.9 pg Normal 27-34 [facility] Comment on above: Performed By: #### C BCA, CMP #### [facility] ([id number]) [address], [address] [place] [address] MCHC (RBC) [Mass/Vol] 34.3 g/dL Normal 32-36 [facility] Comment on above: Performed By: #### C BCA, CMP #### [facility] ([id number]) [address], [address] [place] [address] MCV (RBC) [Entitic vol] 93 fL Normal 80-100 [facility] Comment on above: Performed By: #### C BCA, CMP #### [facility] ([id number]) [address], [address] [place] [address] Monocytes (Bld) [#/Vol] 0.5 10*3/uL Normal 0-0.9 [facility] Comment on above: Performed By: #### C BCA, CMP #### [facility] ([id number]) [address], [address] [place] [address] Monocytes/100 WBC (Bld) 6.1 % Normal [facility] Comment on above: Performed By: #### C BCA, CMP #### [facility] ([id number]) [address], [address] [place] [address] Neutrophils/100 WBC (Bld) 65.7 % Normal [facility] Comment on above: Performed By: #### C BCA, CMP #### [facility] ([id number]) [address], [address] [place] [address] Platelet mean volume (Bld) [Entitic vol] 9.7 fL Normal 7-12 [facility] Comment on above: Performed By: #### C BCA, CMP #### [facility] ([id number]) [address], [address] [place] [address] Platelets (Bld) [#/Vol] 188 10*3/uL Normal 150-450 [facility] Comment on above: Performed By: #### C BCA, CMP #### [facility] ([id number]) [address], [address] [place] [address] RBC COUNT 4.42 X10E12/L Normal 3.80-5.20 [facility] Comment on above: Performed By: #### C BCA, CMP #### [facility] ([id number]) [address], [address] [place] [address] WBC (Bld) [#/Vol] 8.1 10*3/uL Normal 4.0-11.0 [facility] Comment on above: Performed By: #### C BCA, CMP #### [facility] ([id number]) [address] [place] [address] CBC with auto diffon 024 Basophils (Bld) [...] [Mass/Vol] 14.1 g/dL 11.7 - 15.5 g/dL [facility] Lymphocytes (Bld) [#/Vol] 2.1 10*3/uL [facility] Lymphocytes/100 WBC (Bld) 25.7 % [facility] MCH (RBC) [Entitic mass] 31.9 pg 27 - 34 pg [facility] MCHC (RBC) [Mass/Vol] 34.3 g/dL 32 - 3 6 g/dL [facility] MCV (RBC) [Entitic vol] 93 fL 80 - 100 fL [facility] Monocytes (Bld) [#/Vol] 0.5 10*3/uL [facility] Monocytes/100 WBC (Bld) 6.1 % [facility] Neutrophils (Bld) [#/Vol] 5.3 10*3/uL [facility] Neutrophils/100 WBC (Bld) 65.7 % [facility] Platelet mean volume (Bld) [Entitic vol] 9.7 fL 7 - 12 fL [facility] Platelets (Bld) [#/Vol] 188 10*3/uL [facility] RBC (Bld) [#/Vol] 4.42 10*6/uL [facility] WBC corrected for nucl RBC Auto (Bld) [#/Vol] 8.1 [facility] COMPREHENSIVE METABOLIC PANE Jeramy 01-02-2024 Albumin [Mass/Vol] 4.4 g/dL Normal 3.2-5.3 [facility] Comment on above: Performed By: #### C BCA, CMP #### [facility] ([id number]) [address], [address] [place] [address] ALP [Catalytic activity/Vol] 157 U/L High 39-130 [facility] Comment on above: Performed By: #### C BCA, CMP #### [facility] ([id number]) [address], [address] [place] [address] ALT [Catalytic activity/Vol] 51 U/L High 0-31 [facility] Comment on above: Performed By: #### C BCA, CMP #### [facility] ([id number]) [address], [address] [place] [address] Anion gap [Moles/Vol] 9 mmol/L Normal 5-15 [facility] Comment on above: Performed By: #### C BCA, CMP #### [facility] ([id number]) [address], [address] [place] [address] AST [Catalytic activity/Vol] 51 U/L High 0-41 [facility] Comment on above: Performed By: #### C BCA, CMP #### [facility] ([id number]) [address], [address] [place] [address] Bilirubin [Mass/Vol] 0.3 mg/dL Normal 0.3-1.2 [facility] Comment on above: Performed By: #### C BCA, CMP #### [facility] ([id number]) [address] [place] [address] Calcium [Mass/Vol] 9.8 mg/dL Normal 8.5-10.5 [facility] Comment on above: Performed By: #### C BCA, CMP #### [facility] ([id number]) [address], [address] [place] [address] Chloride [Moles/Vol] 104 mmol/L Normal 98-109 [facility] Comment on above: Performed By: #### C BCA, CMP #### [facility] ([id number]) [address], [address] [place] [address] CO2 [Moles/Vol] 25 mmol/L Normal 22-32 [facility] Comment on above: Performed By: #### C BCA, CMP #### [facility] ([id number]) [address] [place] [address] Creatinine [Mass/Vol] 0.86 mg/dL Normal 0.40-1.00 [facility] Comment on above: Result Comment: METH OD TRACEABLE TO IDMS STANDARD Performed By: #### C BCA, CMP #### [facility] ([id number]) [address] [place] [address] GFR/1.73 sq M.predicted among non-blacks MDRD (S/P/Bld) [Vol rate/Area] 88 mL/min/{1.73_m2} Normal >59 [facility] Comment on above: Result Comment: Reported eGFR is based on the CKD-EPI 2020 equation that does not use a race coefficient. Performed By: #### C BCA, CMP #### [facility] ([id number]) [address] [place] [address] Glucose [Mass/Vol] 92 mg/dL Normal 65-99 [facility] Comment on above: Performed By: #### C BCA, CMP #### [facility] ([id number]) [address] [place] [address] Potassium [Moles/Vol] 4.3 mmol/L Normal 3.5-5.0 [facility] Comment on above: Performed By: #### C BCA, CMP #### [facility] ([id number]) [address] [place] [address] Protein [Mass/Vol] 7.7 g/dL Normal 6.0-8.0 [facility] Comment on above: Performed By: #### C BCA, CMP #### [facility] ([id number]) [address] [place] [address] Sodium [Moles/Vol] 138 mmol/L Normal 134-146 [facility] Comment on above: Performed By: #### C BCA, CMP #### [facility] ([id number]) [address] [place] [address] Urea nitrogen [Mass/Vol] 13 mg/dL Normal 5-23 [facility] Comment on above: Performed By: #### C BCA, CMP #### [facility] ([id number]) [address] [place] [address] Comprehensive metabolic pane jeramy 01-02-2024 Albumin [Mass/Vol] 4.4 g/dL 3.2 - 5.3 g/dL [facility] ALP [Catalytic activity/Vol] 157 U/L High 39 - 130 U/L [facility] ALT No additional P-5'-P [Catalytic activity/Vol] 51 U/L High 0 - 31 U/L [facility] Anion gap [Moles/Vol] 9 mmol/L 5 - 15 mmol/L [facility] AST [Catalytic activity/Vol] 51 U/L High 0 - 41 U/L [facility] Bilirubin [Mass/Vol] 0.3 mg/dL 0.3 - 1 .2 mg/dL [facility] Calcium [Mass/Vol] 9.8 mg/dL 8.5 - 10. 5 mg/dL [facility] Chloride [Moles/Vol] 104 mmol/L 98 - 10 9 mmol/L [facility] CO2 [Moles/Vol] 25 mmol/L 22 - 32 mmol/L [facility] Creatinine [Mass/Vol] 0.86 mg/dL 0.40 - 1.00 mg/dL [facility] Comment on above: METHOD TRACEABLE TO IDMS STANDARD eGFR (CKD-EPI)non-race dependent 88 - PINF [facility] Comment on above: Reported eGFR is based on the CKD-EPI 2020 equation that does not use a race coefficient. Glucose [Mass/Vol] 92 mg/dL 65 - 99 mg/dL [facility] Interpretation and review of laboratory results Abnormal [facility] Potassium [Moles/Vol] 4.3 mmol/L 3.5 - 5.0 mmol/L [facility] Protein [Mass/Vol] 7.7 g/dL 6.0 - 8.0 g/dL [facility] Sodium [Moles/Vol] 138 mmol/L 134 - 146 mmol/L [facility] Urea nitrogen [Mass/Vol] 13 mg/dL 5 - 23 mg/dL [facility] ECG 12 leadon 01-02-2024 TRACEMASTERVUE [facility] ALL GAMMA GLUTAMYL TRANSPEPT IDASEon 12-08-2023 Amylase [Catalytic activity/Vol] 405 U/L High 8 - 55 U/L [facility] Albumin [Mass/Vol] 4.0 g/dL 3.4 - 5.0 g/dL [facility] ALBUMIN GLOBULIN RATIO 1.0 [facility] ALP [Catalytic activity/Vol] 183 U/L High 46 - 116 U/L [facility] ALT [Catalytic activity/Vol] 39 U/L 14 - 59 U/L [facility] AST [Catalytic activity/Vol] 25 U/L 15 - 37 U/L [facility] Bilirubin [Mass/Vol] 0.5 mg/dL 0.2 - 1 .0 mg/dL [facility] Bilirubin.indirect [Mass/Vol] 0.1 mg/dL 0.0 - 0.2 mg/dL [facility] Globulin (S) [Mass/Vol] 4.1 g/dL [facility] Protein [Mass/Vol] 8.1 g/dL 6.4 - 8.2 g/dL [facility] No Panel Informationon 12-07 Interpretation and review of laboratory results Abnormal [facility] ALL CBC WITH AUTO DIFFon BASOPHILS ABSOLUTE AUTO 0.0 [facility] Basophils/100 WBC (Bld) 0.5 % 0.2 - 2.0 % [facility] Eosinophils/100 WBC (Bld) 1.8 % 0.9 - 7.0 % [facility] Erythrocyte distribution width (RBC) [Ratio] 13.2 % 11.0 - 15.0 % [facility] Hematocrit (Bld) [Volume fraction] 42.2 % 36.0 - 48.0 % [facility] Hemoglobin (Bld) [Mass/Vol] 14.3 g/dL 12.0 - 16.0 g/dL [facility] IMMATURE GRANULOCYTES ABS AUTO 0.03 [facility] Immature granulocytes/100 WBC (Bld) 0.4 % 0.0 - 0.5 % [facility] LYMPHOCYTES ABSOLUTE AUTO 2.2 [facility] Lymphocytes/100 WBC (Bld) 26.4 % 20.5 - 60.0 % [facility] MCH (RBC) [Entitic mass] 31.6 pg 26.7 - 34.0 pg [facility] MCHC (RBC) [Mass/Vol] 33.9 g/dL 29.9 - 35.2 g/dL [facility] MCV (RBC) [Entitic vol] 93.2 fL 81.0 - 99.0 fL [facility] MONOCYTES ABSOLUTE AUTO 0.5 [facility] Monocytes/100 WBC (Bld) 6.3 % 1.7 - 12.0 % [facility] NEUTROPHILS ABSOLUTE AUTO 5.4 [facility] Neutrophils/100 WBC (Bld) 64.6 % 43.0 - 75.0 % [facility] Platelet mean volume (Bld) [Entitic vol] 10.5 fL 9.5 - 13.5 fL [facility] TBH EO # 0.2 [facility] TB PLT 233 [facility] RBC 4.53 [facility] WBC 8.4 [facility] Jeramy 11-25-2023 L Specimen: [id number] Received: 11/28/23 Status: LEON Dupree Num: [id number] Spec Type: Surgical Subm Dr: Josh Rajan Tissues: A Ovary - Cyst, Neoplastic ( LEFT OVARIAN CYST WALL) Procedures: HE/5, Gross/Micro L5 Age/ Patient Sex Location Account Attending Physician Emily Moy 38/F [facility] [id number] Josh Rajan SPEC NUM: [id number] RECD: 11/28/23 STATUS: LEON DUPREE NUM: [id number] GABRIELA: 11/25/[address]: Josh Rajan ENTERED: 11/28/23 [facility] DR: Bruno,Lab SPEC TYPE: Surgical DEPT: ESA RODRIGUEZ ORDERED: HE/5, Gross/Micro L5 ORDERED: HE/5, Gross/Micro L5 Pathological Diagnosis Left ovarian cyst wall, cystectomy: -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 The specimen is serially sectioned. Lathe Machinist sections are submitted in cassettes A1-A5. DM Microscopic Description Microscopic examinations are performed supporting the above interpretation Specimen: [id number] Received: 11/28/23 Status: LEON Sparksmandi Num: [id number] Spec Type: Surgical Subm Dr: Josh Rajan Tissues: A Ovary - Cyst, Neoplastic ( LEFT OVARIAN CYST WALL) Procedures: HE/5, Gross/Micro L5 Patient: Emily Moy [id number] (Continued) Specimen: [id number] Received: 11/28/23 (Continued) Signed (signature on file) Jaja Villa MD 11/30/23 1302 Specimen: [id number] Received: 11/28/23 Status: LEON Dupree Num: [id number] Spec Type: Surgical Subm Dr: Josh Rajan Tissues: A Ovary - Cyst, Neoplastic ( LEFT OVARIAN CYST WALL) Procedures: ALEKSANDAR/Antonio, Gross/Micro L5 Patient: Emily Moy [id number] (Continued) Specimen: [id number] Received: 11/28/23 (Continued) CPT Codes 00730 Specimen: [id number] Received: 11/28/23 Status: LEON Dupree Num: [id number] Spec Type: Surgical Subm Dr: Josh Rajan Tissues: A Ovary - Cyst, Neoplastic ( LEFT OVARIAN CYST WALL) Procedures: HE/Antonio, Gross/Micro L5 Patient: JanybrandonEmily [id number] (Continued) Signed (signature on file) Jaja Villa MD 11/30/23 1302 Normal [facility] BUNon 07-17-2022 Urea nitrogen [Mass/Vol] 9.0 mg/dL Normal 7.0-18.0 [facility] Comment on above: Performed By: #### C DANY, BUN #### [facility] [address] [place] [address] Dr. Marianela Villa CBC AUTO DIFFon 07-17-2022 BASO # 0.0 103/ul Normal 0.0-0.1 [facility] Comment on above: Performed By: #### C DANY, BUN #### [facility] [address] [place] [address] Dr. Marianela iVlla Basophils/100 WBC (Bld) 0.1 % Critically low 0.2-2.0 [facility] Comment on above: Performed By: #### C DANY, BUN #### [facility] [address] [place] [address] Dr. Marianela Villa EO # 0.0 103/ul Normal 0.0-0.7 [facility] Comment on above: Performed By: #### C DANY, BUN #### [facility] [address] [place] [address] Dr. Marianela Villa Eosinophils/100 WBC (Bld) 0.0 % Critically low 0.9-7.0 [facility] Comment on above: Performed By: #### C DANY, BUN #### [facility] [address] [place] [address] Dr. Marianela Villa Erythrocyte distribution width (RBC) [Ratio] 14.5 % Normal 11.0-15.0 [facility] Comment on above: Performed By: #### C DANY, BUN #### [facility] [facility] [address] [place] [address] Dr. Marianela Villa Hematocrit (Bld) [Volume fraction] 29.9 % Critically low 36.0-48.0 [facility] Comment on above: Performed By: #### C DANY, BUN #### [facility] [address] [place] [address] Dr. Marianela Villa Hemoglobin (Bld) [Mass/Vol] 10.0 g/dL Critically low 12.0-16.0 [facility] Comment on above: Performed By: #### C DANY, BUN #### [facility] [address] [place] [address] Dr. Marianela Villa IG # 0.04 10e3/ul Critically high 0.00-0.03 The [facility] Comment on above: Performed By: #### C DANY, BUN #### [facility] [address] [place] [address] Dr. Marianela Villa IG % 0.4 % Normal 0.0-0.5 [facility] Comment on above: Performed By: #### C DANY, BUN #### [facility] [address] [place] [address] Dr. Marianela Villa LYMPH # 1.2 103/ul Normal 1.2-3.8 [facility] Comment on above: Performed By: #### C DANY, BUN #### [facility] [address] [place] [address] Dr. Marianela Villa Lymphocytes/100 WBC (Bld) 12.1 % Critically low 20.5-60.0 [facility] Comment on above: Performed By: #### C DANY, BUN #### [facility] [address] [place] [address] Dr. Marianela Villa MANUAL DIFF REQ NO Normal [facility] Comment on above: Performed By: #### C DANY, BUN #### [facility] [address] [place] [address] Dr. Marianela Villa MCH (RBC) [Entitic mass] 31.3 pg Normal 26.7-34.0 [facility] Comment on above: Performed By: #### C DANY, BUN #### [facility] [address] [place] [address] Dr. Marianela Villa MCHC (RBC) [Mass/Vol] 33.4 g/dL Normal 29.9-35.2 [facility] Comment on above: Performed By: #### C DANY, BUN #### [facility] [address] [place] [address] Dr. Marianela Villa MCV (RBC) [Entitic vol] 93.7 fL Normal 81.0-99.0 [facility] Comment on above: Performed By: #### C DANY, BUN #### [facility] [address] [place] [address] Dr. Marianela Villa MONO # 1.0 103/ul Critically high 0.3-0.8 [facility] Comment on above: Performed By: #### C DANY, BUN #### [facility] [address] [place] [address] Dr. Marianela Villa Monocytes/100 WBC (Bld) 10.2 % Normal 1.7-12.0 [facility] Comment on above: Performed By: #### C DANY, BUN #### [facility] [address] [place] [address] Dr. Marianela Villa NEUT # 7.7 103/ul Critically high 1.4-6.5 [facility] Comment on above: Performed By: #### C DANY, BUN #### [facility] [address] [place] [address] Dr. Marianela Villa Neutrophils/100 WBC (Bld) 77.2 % Critically high 43.0-75.0 [facility] Comment on above: Performed By: #### C DANY, BUN #### [facility] [address] [place] [address] Dr. Marianela Villa Platelet mean volume (Bld) [Entitic vol] 10.9 fL Normal 9.5-13.5 [facility] Comment on above: Performed By: #### C DANY, BUN #### [facility] [address] [place] [address] Dr. Marianela Villa PLT 188 103/ul Normal 150-450 [facility] Comment on above: Performed By: #### C DANY, BUN #### [facility] [address] [place] [address] Dr. Marianela Villa RBC 3.19 106/ul Critically low 4.20-5.40 [facility] Comment on above: Performed By: #### C DANY, BUN #### [facility] [address] [place] [address] Dr. Marianela Villa WBC 10.0 103/ul Normal 4.0-11.0 [facility] Comment on above: Performed By: #### C DANY, BUN #### [facility] [address] [place] [address] Dr. Marianela Villa CREATININEon 07-17-2022 Creatinine [Mass/Vol] 0.78 mg/dL Normal 0.55-1.02 [facility] Comment on above: Performed By: #### C DANY, BUN #### [facility] [address] [address] [address] Marianela Villa EGFR-AF HAITIAN >60 Normal >=60 [facility] Comment on above: Performed By: #### C DANY, BUN #### [facility] [address] [place] [address] Dr. Marianela Villa EGFR-NON AF HAITIAN >60 Normal >=60 [facility] Comment on above: Performed By: #### C DANY, BUN #### [facility] [address] [place] [address] Dr. Marianela Villa PREG QUANT HCGon 07-16-2022 HCG QUANT <1 Normal [facility] Comment on above: Performed By: #### P REGQNT #### [facility] [address] [place] [address] Dr. Marianela Villa HCG RANGE SEE BELOW Normal [facility] Comment on above: Result Comment: 5-50 0.2-1 WEEK 50-500 1-2 WEEKS 100-5,000 2-3 WEEKS 500-10,000 3-4 WEEKS 1,000-50,000 4-5 WEEKS 10,000-100,000 5-6 WEEKS 15,000-200,000 6-8 WEEKS 10,000-100,000 2-3 MONTHS Performed By: #### P REGQNT #### [facility] [address] [place] [address] Dr. Marianela Villa TYPE AND SCREENon 07-13-2022 TYPE AND SCREEN Negative Normal [facility] Comment on above: Performed By: #### C DANY, BUN #### [facility] [address] [address] [address] Marianela Villa CBC AUTO DIFFon 07-01-2022 BASO # 0.0 103/ul Normal 0.0-0.1 [facility] Comment on above: Performed By: #### C BC #### [facility] [address] [address] [address] Marianela Villa Basophils/100 WBC (Bld) 0.3 % Normal 0.2-2.0 [facility] Comment on above: Performed By: #### C BC #### [facility] [address] [address] [address] Marianela Villa EO # 0.1 103/ul Normal 0.0-0.7 [facility] Comment on above: Performed By: #### C BC #### [facility] [address] [place] [address] Dr. Marianela Villa Eosinophils/100 WBC (Bld) 1.6 % Normal 0.9-7.0 [facility] Comment on above: Performed By: #### C BC #### [facility] [address] [place] [address] Dr. Marianela Villa Erythrocyte distribution width (RBC) [Ratio] 13.9 % Normal 11.0-15.0 [facility] Comment on above: Performed By: #### C BC #### [facility] [address] [place] [address] Dr. Marianela Villa Hematocrit (Bld) [Volume fraction] 37.9 % Normal 36.0-48.0 [facility] Comment on above: Performed By: #### C BC #### [facility] [address] [place] [address] Dr. Marianela Villa Hemoglobin (Bld) [Mass/Vol] 12.3 g/dL Normal 12.0-16.0 [facility] Comment on above: Performed By: #### C BC #### [facility] [address] [address] [address] Marianela Villa IG # 0.01 10e3/ul Normal 0.00-0.03 [facility] Comment on above: Performed By: #### C BC #### [facility] [address] [place] [address] Dr. Marianela Villa IG % 0.2 % Normal 0.0-0.5 [facility] Comment on above: Performed By: #### C BC #### [facility] [address] [place] [address] Dr. Marianela Villa LYMPH # 1.6 103/ul Normal 1.2-3.8 [facility] Comment on above: Performed By: #### C BC #### [facility] [address] [place] [address] Dr. Marianela Villa Lymphocytes/100 WBC (Bld) 24.6 % Normal 20.5-60.0 [facility] Comment on above: Performed By: #### C BC #### [facility] [address] [place] [address] Dr. Marianela Villa MANUAL DIFF REQ NO Normal [facility] Comment on above: Performed By: #### C BC #### [facility] [address] [place] [address] Dr. Marianela Villa MCH (RBC) [Entitic mass] 30.5 pg Normal 26.7-34.0 [facility] Comment on above: Performed By: #### C BC #### [facility] [address] [place] [address] Dr. Marianela Villa MCHC (RBC) [Mass/Vol] 32.5 g/dL Normal 29.9-35.2 [facility] Comment on above: Performed By: #### C BC #### [facility] [address] [place] [address] Dr. Marianela Villa MCV (RBC) [Entitic vol] 94.0 fL Normal 81.0-99.0 [facility] Comment on above: Performed By: #### C BC #### [facility] [address] [place] [address] Dr. Marianela Villa MONO # 0.5 103/ul Normal 0.3-0.8 [facility] Comment on above: Performed By: #### C BC #### [facility] [address] [place] [address] Dr. Marianela Villa Monocytes/100 WBC (Bld) 7.6 % Normal 1.7-12.0 [facility] Comment on above: Performed By: #### C BC #### [facility] [address] [place] [address] Dr. Marianela Villa NEUT # 4.2 103/ul Normal 1.4-6.5 [facility] Comment on above: Performed By: #### C BC #### [facility] [address] [place] [address] Dr. Marianela Villa Neutrophils/100 WBC (Bld) 65.7 % Normal 43.0-75.0 [facility] Comment on above: Performed By: #### C BC #### [facility] [address] [place] [address] Dr. Marianela Villa Platelet mean volume (Bld) [Entitic vol] 11.0 fL Normal 9.5-13.5 [facility] Comment on above: Performed By: #### C BC #### [facility] [address] [place] [address] Dr. Marianela Villa PLT 251 103/ul Normal 150-450 [facility] Comment on above: Performed By: #### C BC #### [facility] [address] [place] [address] Dr. Marianela Villa RBC 4.03 106/ul Critically low 4.20-5.40 [facility] Comment on above: Performed By: #### C BC #### [facility] [address] [place] [address] Dr. Marianela Villa WBC 6.4 103/ul Normal 4.0-11.0 [facility] Comment on above: Performed By: #### C BC #### [facility] [address] [place] [address] Dr. Marianela Villa LIVER PROFILEon 07-01-2022 Albumin [Mass/Vol] 3.7 g/dL Normal 3.4-5.0 [facility] Comment on above: Performed By: #### B MP, LIVER #### [facility] [address] [address] [address] Marianela Villa Albumin/Globulin [Mass ratio] 1.0 {ratio} Normal [facility] Comment on above: Performed By: #### B MP, LIVER #### [facility] [address] [address] [address] Marianela Villa ALP [Catalytic activity/Vol] 96 U/L Normal 46-116 [facility] Comment on above: Performed By: #### B MP, LIVER #### [facility] [address] [address] [address] Marianela Villa ALT [Catalytic activity/Vol] 25 U/L Normal 14-59 [facility] Comment on above: Performed By: #### B MP, LIVER #### [facility] [address] [place] [address] Dr. Marianela Villa AST [Catalytic activity/Vol] 16 U/L Normal 15-37 [facility] Comment on above: Performed By: #### B MP, LIVER #### [facility] [address] [place] [address] Dr. Marianela Villa BILI, CONJUGATED 0.0 mg/dL Normal 0.0-0.2 [facility] Comment on above: Performed By: #### B MP, LIVER #### [facility] [address] [place] [address] Dr. Marianela Villa Bilirubin [Mass/Vol] 0.2 mg/dL Normal 0.2-1.0 [facility] Comment on above: Performed By: #### B MP, LIVER #### [facility] [address] [address] [address] Marianela Villa Globulin (S) [Mass/Vol] 3.7 g/dL Normal [facility] Comment on above: Performed By: #### B MP, LIVER #### [facility] [address] [address] [address] Marianela Villa Protein [Mass/Vol] 7.4 g/dL Normal 6.4-8.2 [facility] Comment on above: Performed By: #### B MP, LIVER #### [facility] [address] [address] [address] Marianela Villa PROF CHEM 8 (BAS METB)on Anion gap [Moles/Vol] 13.2 mmol/L Normal [facility] Comment on above: Performed By: #### B MP, LIVER #### [facility] [address] [place] [address] Dr. Marianela Villa Calcium [Mass/Vol] 9.2 mg/dL Normal 8.5-10.1 [facility] Comment on above: Performed By: #### B MP, LIVER #### [facility] [address] [place] [address] Dr. Marianela Villa Chloride [Moles/Vol] 103 mmol/L Normal 98-107 [facility] Comment on above: Performed By: #### B MP, LIVER #### [facility] [address] [place] [address] Dr. Marianela Villa CO2 [Moles/Vol] 28.0 mmol/L Normal 21.0-32.0 [facility] Comment on above: Performed By: #### B MP, LIVER #### [facility] [address] [place] [address] Dr. Marianela Villa Creatinine [Mass/Vol] 0.75 mg/dL Normal 0.55-1.02 [facility] Comment on above: Performed By: #### B MP, LIVER #### [facility] [address] [place] [address] Dr. Marianela Villa EGFR-AF HAITIAN >60 Normal >=60 [facility] Comment on above: Performed By: #### B MP, LIVER #### [facility] [address] [place] [address] Dr. Marianela Villa EGFR-NON AF HAITIAN >60 Normal >=60 [facility] Comment on above: Performed By: #### B MP, LIVER #### [facility] [address] [place] [address] Dr. Marianela Villa Glucose [Mass/Vol] 86 mg/dL Normal 74-106 [facility] Comment on above: Performed By: #### B MP, LIVER #### [facility] [address] [place] [address] Dr. Marianela Villa Potassium [Moles/Vol] 4.2 mmol/L Normal 3.5-5.1 [facility] Comment on above: Performed By: #### B MP, LIVER #### [facility] [address] [address] [address] Marianela Villa Sodium [Moles/Vol] 140 mmol/L Normal 136-145 [facility] Comment on above: Performed By: #### B MP, LIVER #### [facility] [address] [place] [address] Dr. Marianela Villa Urea nitrogen [Mass/Vol] 8.0 mg/dL Normal 7.0-18.0 [facility] Comment on above: Performed By: #### B MP, LIVER #### [facility] [address] [place] [address] Dr. Marianela Villa Urea nitrogen/Creatinine [Mass ratio] 10.7 mg/mg Normal [facility] Comment on above: Performed By: #### B MP, LIVER #### [facility] [address] [place] [address] Dr. Marianela Villa PROTIMEon 07-01-2022 INR Coag (PPP) [Relative time] 1.00 {INR} Normal [facility] Comment on above: Performed By: #### C DANY, BUN #### [facility] [address] [place] [address] Dr. Marianela Villa INR GUIDELINES SEE BELOW Normal The [facility] Comment on above: Result Comment: MCKENNA RED INR: 2.0 - 3.0 CONDITIONS NOT LISTED BELOW 2.5 - 3.5 FOR PROSTHETIC HEART VALVE REPLACEMENT 2.5 - 3.5 RECURRENT THROMBOSIS Performed By: #### C DANY, BUN #### [facility] [address] [place] [address] Dr. Marianela Villa PT Coag (PPP) [Time] 10.6 s Normal 9.0-11.6 [facility] Comment on above: Performed By: #### C DANY, BUN #### [facility] [address] [place] [address] Dr. Marianela Villa PTTon 07-01-2022 aPTT Coag (Bld) [Time] 25.0 s Normal 22.3-36.[address] [facility] Comment on above: Performed By: #### C DANY, BUN #### [facility] [address] [place] [address] Dr. Marianela Villa CBC AUTO DIFFon 05-05-2022 BASO # 0.0 103/ul Normal 0.0-0.1 [facility] Comment on above: Performed By: #### P REG #### [facility] [address] [place] [address] Dr. Marianela Villa Basophils/100 WBC (Bld) 0.4 % Normal 0.2-2.0 [facility] Comment on above: Performed By: #### P REG #### [facility] [address] [place] [address] Dr. Marianela Villa EO # 0.1 103/ul Normal 0.0-0.7 [facility] Comment on above: Performed By: #### P REG #### [facility] [address] [place] [address] Dr. Marianela Villa Eosinophils/100 WBC (Bld) 0.9 % Normal 0.9-7.0 [facility] Comment on above: Performed By: #### P REG #### [facility] [address] [place] [address] Dr. Marianela Villa Erythrocyte distribution width (RBC) [Ratio] 16.8 % Critically high 11.0-15.0 [facility] Comment on above: Performed By: #### P REG #### [facility] [address] [place] [address] Dr. Marianela Villa Hematocrit (Bld) [Volume fraction] 40.8 % Normal 36.0-48.0 [facility] Comment on above: Performed By: #### P REG #### [facility] [address] [place] [address] Dr. Marianela Villa Hemoglobin (Bld) [Mass/Vol] 13.0 g/dL Normal 12.0-16.0 [facility] Comment on above: Performed By: #### P REG #### [facility] [address] [place] [address] Dr. Marianela Villa IG # 0.02 10e3/ul Normal 0.00-0.03 [facility] Comment on above: Performed By: #### P REG #### [facility] [address] [place] [address] Dr. Marianela Villa IG % 0.3 % Normal 0.0-0.5 [facility] Comment on above: Performed By: #### P REG #### [facility] [address] [place] [address] Dr. Marianela Villa LYMPH # 1.6 103/ul Normal 1.2-3.8 [facility] Comment on above: Performed By: #### P REG #### [facility] [address] [place] [address] Dr. Marianela Villa Lymphocytes/100 WBC (Bld) 24.1 % Normal 20.5-60.0 [facility] Comment on above: Performed By: #### P REG #### [facility] [address] [place] [address] Dr. Marianela Villa MANUAL DIFF REQ NO Normal [facility] Comment on above: Performed By: #### P REG #### [facility] [address] [place] [address] Dr. Marianela Villa MCH (RBC) [Entitic mass] 30.3 pg Normal 26.7-34.0 [facility] Comment on above: Performed By: #### P REG #### [facility] [address] [place] [address] Dr. Marianela Villa MCHC (RBC) [Mass/Vol] 31.9 g/dL Normal 29.9-35.2 [facility] Comment on above: Performed By: #### P REG #### [facility] [address] [place] [address] Dr. Marianela Villa MCV (RBC) [Entitic vol] 95.1 fL Normal 81.0-99.0 [facility] Comment on above: Performed By: #### P REG #### [facility] [address] [place] [address] Dr. Marianela Villa MONO # 0.5 103/ul Normal 0.3-0.8 [facility] Comment on above: Performed By: #### P REG #### [facility] [address] [place] [address] Dr. Marianela Villa Monocytes/100 WBC (Bld) 7.6 % Normal 1.7-12.0 [facility] Comment on above: Performed By: #### P REG #### [facility] [address] [place] [address] Dr. Marianela Villa NEUT # 4.5 103/ul Normal 1.4-6.5 [facility] Comment on above: Performed By: #### P REG #### [facility] [address] [place] [address] Dr. Marianela Villa Neutrophils/100 WBC (Bld) 66.7 % Normal 43.0-75.0 [facility] Comment on above: Performed By: #### P REG #### [facility] [address] [place] [address] Dr. Marianela Villa Platelet mean volume (Bld) [Entitic vol] 10.0 fL Normal 9.5-13.5 [facility] Comment on above: Performed By: #### P REG #### [facility] [address] [place] [address] Dr. Marianela Villa PLT 253 103/ul Normal 150-450 [facility] Comment on above: Performed By: #### P REG #### [facility] [address] [place] [address] Dr. Marianela Villa RBC 4.29 106/ul Normal 4.20-5.40 [facility] Comment on above: Performed By: #### P REG #### [facility] [address] [place] [address] Dr. Marianela Villa WBC 6.8 103/ul Normal 4.0-11.0 [facility] Comment on above: Performed By: #### P REG #### [facility] [address] [place] [address] Dr. Marianela Villa FERRITINon 05-05-2022 Ferritin [Mass/Vol] 21.0 ng/mL Normal 6.2-137.0 [facility] Comment on above: Performed By: #### P REG #### [facility] [address] [place], [place] [address] Dr. Marianela Villa IRONon 05-05-2022 Iron [Mass/Vol] 128.0 ug/dL Normal 50.0-170.0 [facility] Comment on above: Performed By: #### P REG #### [facility] [address] [place], [place] [address] Dr. Marianela Villa US VAC ASST BX BREAST RT W C LIPon 04-29-2022 US VAC ASST BX BREAST RT W CLIP Begin Addendum #1 COLLECTED DATE/TIME: 04/26/2022, 11:20 EST Final Diagnosis Report for [facility] [place] [place] RIGHT BREAST 1 O'CLOCK MASS; BIOPSY: [...] after pathology results are available. Normal [facility] MAMMO POST BIOPSY RIGHTon MAMMO POST BIOPSY RIGHT Patient: EMILY MOY Exam Date: 04/26/2022 : 1985 Gender:F Ordering : YANG REDMOND CNP Admission #: [id number] Family : Order #: [id number] CLICK HERE TO VIEW EXAM RADIOLOGY REPORT PROCEDURE: MAMMOGRAM POST BIOPSY IMAGES COMPARISON: US BREAST RIGHT LIMITED, 04/16/2022. INDICATIONS: Lump in right breast BREAST COMPOSITION: FINDINGS: BIOPSY MARKER: A metallic marker has been placed in the targeted location within the upper inner quadrant of the right breast. BREAST FINDINGS: Expected post biopsy findings. RECOMMENDATIONS: Dictated by: Ceferino Ludwig M.D. on 04/26/2022 at 13:54 Approved by: Ceferino Ludwig M.D. on 04/26/2022 at 13:55 Normal [facility] MG MAMM DIAGNOSTIC 3D SERVANDO CA Don 04-16-2022 MG MAMM DIAGNOSTIC 3D SERVANDO CAD Patient: EMILY MOY Exam Date: 04/16/2022 : 1985 Gender:F Ordering : SKID STRAPPER [facility] Admission #: [id number] Family : Order #: [id number] CLICK HERE TO VIEW EXAM RADIOLOGY REPORT [...] leukemia cancer at age 1. LOCATION: [facility] BREAST COMPOSITION: Scattered areas fibroglandular [...] LUMP SHOULD BE BIOPSIED. Dictated by: Ceferino Ludwig M.D. on 04/16/2022 at 13:34 Approved by: Ceferino Ludwig M.D. on 04/16/2022 at 13:39 Normal [facility] US BREAST RIGHT LIMITEDon US BREAST RIGHT LIMITED Patient: EMILY MOY Exam Date: 04/16/2022 : 1985 Gender:F Ordering : YANG [facility] Admission #: [id number] Family : Order #: [id number] CLICK HERE TO VIEW EXAM RADIOLOGY REPORT [...] leukemia cancer at age 1. LOCATION: [facility] BREAST COMPOSITION: Scattered areas fibroglandular [...] LUMP SHOULD BE BIOPSIED. Dictated by: Ceferino Ludwig M.D. on 04/16/2022 at 13:34 Approved by: Ceferino Ludwig M.D. on 04/16/2022 at 13:39 Normal [facility] US PELVIS AND TRANSVAGon US PELVIS AND TRANSVAG EXAM: Pelvic Ultr asound HISTORY: Excessive and frequent menstruation the COMPARISON: [...] KIANA CHURCH Date: 2022-04-16 10:01 Normal [facility] General Surgery Office/Clini c Noteon [...] data Procedure/Surgical History Colonoscopy (04/07/2022), EGD - Esophagogastroduodenosc opy (04/07/2022), section (2008), section (2007), Extraction of [...] mRNA-1273 vaccine 07/19/2020 Recorded 2022-03-03: TPVALL Normal [facility] Comment on above: Result Comment: Elec tronically Signed By: BENITA GUTIERREZ, Halley Smith\Date and Time Signed: 04/14/22 16:29 EST Reminderson 04-14-2022 Reminders - From: Rain Alcantar LPN To: N - Clinical; Sent: 04/14/2022 15:37:22 EST Show up: 03/07/2032 07:00:00 EST Subject: colonoscopy recall Due Date/Time: 04/07/2032 07:00:00 EST Reminder/Recall Patient is due for screening colonoscopy 04/07/2032. Normal [facility] Outside Colonoscopyon 2022 Outside Colonoscopy [id number]#1.00C D:127 Normal [facility] Pathology Noteon 04-09-2022 Pathology Note [id number]#1.00C D:127 Normal [facility] PREG HCG QUALon 04-07-2022 , QUAL Negative Normal NEGATIVE [facility] Comment on above: Performed By: #### C #### [facility] [address] [place] [address] Dr. Marianela Villa Lab Reportson 04-01-2022 Lab Reports [id number]#1.00C D:127 Normal [facility] Covid-19 PCR (CVDTBH)on 03-05 SARS-CoV-2 (COVID-19) RNA TERA+probe Ql (Unsp spec) Not detected Normal NOT DETECTED [facility] Comment on above: Result Comment: This test is not yet approved or cleared by the [place] FDA. When there are no FDA-approved or cleared tests available, and other criteria are met, FDA can make tests available under an emergency access mechanism called an Emergency Use Authorization (EUA). The EUA for this test is supported by the [place] of Health and Human Service's (HHS's) declaration [...] SARS-CoV-2. Performed By: #### P REG #### [facility] [address] [place] [address] Dr. Marianela Villa PAP ACOG PANEL 2: 30 to 65on 03-21-2022 . . Normal [facility] Comment on above: Result Comment: Perf ormed at: WB Performed By: #### [id number] #### [facility] [address] [place] [address] Dr. Marianela Villa Age Gdln ACOG Testing 30-65 [facility] Comment on above: Performed By: #### [id number] #### [facility] [address] [place] [address] Dr. Marianela Villa DIAGNOSIS: Comment Normal [facility] Comment on above: Result Comment: NEGA TIVE FOR INTRAEPITHELIAL LESION OR MALIGNANCY. Performed at: WB Performed By: #### [id number] #### [facility] [address] [address] [address] Marianela Villa HPV Aptima Negative Normal Negative [facility] Comment on above: Result Comment: This nucleic acid amplification test detects fourteen high-risk HPV types (16,18,31,33,35,39,45,51,52,56,58,59,66,68) without differentiation. Performed at: =G Performed By: #### [id number] #### [facility] [address] [address] [address] Marianela Villa HPV Genotype Reflex Comment Normal [facility] Comment on above: Result Comment: Crit eria not met, HPV Genotype not performed. Performed at: WB Performed By: #### [id number] #### [facility] [address] [place] [address] Dr. Marianela Villa Methodology: Comment Normal [facility] Comment on above: Result Comment: This liquid based ThinPrep(R) pap test was screened with the use of an image guided system. Performed at: WB Performed By: #### [id number] #### [facility] [address] [place] [address] Dr. Marianela Villa Note: Comment Normal [facility] Comment on above: Result Comment: The Pap smear is a screening test designed to aid in the detection of premalignant and malignant conditions of the uterine cervix. It is not a diagnostic procedure and should not be used as the sole means of detecting cervical cancer. Both false-positive and false-negative reports do occur. . Performed at: WB Performed By: #### [id number] #### [facility] [address] [address] [address] Marianela Villa Performed by: Comment Normal [facility] Comment on above: Result Comment: Nancy Leslie, Hot Plate Plywood Press Operator (ASCP) Performed at: WB Performed By: #### 4 [id number] #### [facility] [address] [address] [address] Marianela Villa Specimen adequacy: Comment Normal [facility] Comment on above: Result Comment: Sati sfactory for evaluation. No endocervical component is identified. Performed at: WB Performed By: #### [id number] #### [facility] [address] [place] [address] Dr. Marianela Villa Pre-Certification Formon Pre-Certification Form [id number] 0CD:127 Normal [facility] Facesheeton 03-09-2022 Facesheet [id number]#1.00C D:127 Normal [facility] Patient Correspondenceon Patient Correspondence [id number] CD:127 Normal [facility] Consent for Procedure/Surger yon 03-08-2022 Consent for Procedure/Surgery [id number]#1.00C D:127 Normal [facility] CBC AUTO DIFFon 03-01-2022 BASO # 0.0 103/ul Normal 0.0-0.1 [facility] Comment on above: Performed By: #### C BC #### [facility] [address] [place] [address] Dr. Marianela Villa Basophils/100 WBC (Bld) 0.5 % Normal 0.2-2.0 [facility] Comment on above: Performed By: #### C BC #### [facility] [address] [place] [address] Dr. Marianela Villa EO # 0.1 103/ul Normal 0.0-0.7 [facility] Comment on above: Performed By: #### C BC #### [facility] [address] [place] [address] Dr. Marianela Villa Eosinophils/100 WBC (Bld) 1.3 % Normal 0.9-7.0 [facility] Comment on above: Performed By: #### C BC #### [facility] [address] [place] [address] Dr. Marianela Villa Erythrocyte distribution width (RBC) [Ratio] 25.9 % Critically high 11.0-15.0 [facility] Comment on above: Performed By: #### C BC #### [facility] [address] [place] [address] Dr. Marianela Villa Hematocrit (Bld) [Volume fraction] 36.4 % Normal 36.0-48.0 [facility] Comment on above: Performed By: #### C BC #### [facility] [address] [place] [address] Dr. Marianela Villa Hemoglobin (Bld) [Mass/Vol] 11.5 g/dL Critically low 12.0-16.0 [facility] Comment on above: Performed By: #### C BC #### [facility] [address] [place] [address] Dr. Marianela Villa IG # 0.01 10e3/ul Normal 0.00-0.03 [facility] Comment on above: Performed By: #### C BC #### [facility] [address] [place] [address] Dr. Marianela Villa IG % 0.2 % Normal 0.0-0.5 [facility] Comment on above: Performed By: #### C BC #### [facility] [address] [place] [address] Dr. Marianela Villa LYMPH # 1.7 103/ul Normal 1.2-3.8 [facility] Comment on above: Performed By: #### C BC #### [facility] [address] [place] [address] Dr. Marianela Villa Lymphocytes/100 WBC (Bld) 31.4 % Normal 20.5-60.0 [facility] Comment on above: Performed By: #### C BC #### [facility] [address] [place] [address] Dr. Marianela Villa MANUAL DIFF REQ NO Normal [facility] Comment on above: Performed By: #### C BC #### [facility] [address] [place] [address] Dr. Marianela Villa MCH (RBC) [Entitic mass] 26.6 pg Critically low 26.7-34.0 [facility] Comment on above: Performed By: #### C BC #### [facility] [address] [address] [address] Marianela Villa MCHC (RBC) [Mass/Vol] 31.6 g/dL Normal 29.9-35.2 [facility] Comment on above: Performed By: #### C BC #### [facility] [address] [place] [address] Dr. Marianela Villa MCV (RBC) [Entitic vol] 84.1 fL Normal 81.0-99.0 [facility] Comment on above: Performed By: #### C BC #### [facility] [address] [place] [address] Dr. Marianela Villa MONO # 0.4 103/ul Normal 0.3-0.8 [facility] Comment on above: Performed By: #### C BC #### [facility] [address] [place] [address] Dr. Marianela Villa Monocytes/100 WBC (Bld) 7.6 % Normal 1.7-12.0 [facility] Comment on above: Performed By: #### C BC #### [facility] [address] [place] [address] Dr. Marianela Villa NEUT # 3.3 103/ul Normal 1.4-6.5 [facility] Comment on above: Performed By: #### C BC #### [facility] [address] [place] [address] Dr. Marianela Villa Neutrophils/100 WBC (Bld) 59.0 % Normal 43.0-75.0 [facility] Comment on above: Performed By: #### C BC #### [facility] [address] [place] [address] Dr. Marianela Villa Platelet mean volume (Bld) [Entitic vol] 11.2 fL Normal 9.5-13.5 [facility] Comment on above: Performed By: #### C BC #### [facility] [address] [place] [address] Dr. Marianela Villa PLT 297 103/ul Normal 150-450 [facility] Comment on above: Performed By: #### C BC #### [facility] [address] [place] [address] Dr. Marianela Villa RBC 4.33 106/ul Normal 4.20-5.40 [facility] Comment on above: Performed By: #### C BC #### [facility] [address] [place] [address] Dr. Marianela Villa WBC 5.5 103/ul Normal 4.0-11.0 [facility] Comment on above: Performed By: #### C BC #### [facility] [address] [place] [address] Dr. Marianela Villa CBC AUTO DIFFon 02-18-2022 BASO # 0.0 103/ul Normal 0.0-0.1 [facility] Comment on above: Performed By: #### P REG #### [facility] [address] [place] [address] Dr. Marianela Villa Basophils/100 WBC (Bld) 0.3 % Normal 0.2-2.0 [facility] Comment on above: Performed By: #### P REG #### [facility] [address] [place] [address] Dr. Marianela Villa EO # 0.1 103/ul Normal 0.0-0.7 [facility] Comment on above: Performed By: #### P REG #### [facility] [address] [place] [address] Dr. Marianela Villa Eosinophils/100 WBC (Bld) 1.0 % Normal 0.9-7.0 [facility] Comment on above: Performed By: #### P REG #### [facility] [address] [place] [address] Dr. Marianela Villa Erythrocyte distribution width (RBC) [Ratio] 25.0 % Critically high 11.0-15.0 [facility] Comment on above: Performed By: #### P REG #### [facility] [address] [place] [address] Dr. Marianela Villa Hematocrit (Bld) [Volume fraction] 34.9 % Critically low 36.0-48.0 [facility] Comment on above: Performed By: #### P REG #### [facility] [address] [address] [address] Marianela Villa Hemoglobin (Bld) [Mass/Vol] 10.6 g/dL Critically low 12.0-16.0 [facility] Comment on above: Performed By: #### P REG #### [facility] [address] [address] [address] Marianela Villa IG # 0.02 10e3/ul Normal 0.00-0.03 [facility] Comment on above: Performed By: #### P REG #### [facility] [address] [place] [address] Dr. Marianela Villa IG % 0.3 % Normal 0.0-0.5 [facility] Comment on above: Performed By: #### P REG #### [facility] [address] [place] [address] Dr. Marianela Villa LYMPH # 1.8 103/ul Normal 1.2-3.8 [facility] Comment on above: Performed By: #### P REG #### [facility] [address] [place] [address] Dr. Marianela Villa Lymphocytes/100 WBC (Bld) 26.0 % Normal 20.5-60.0 [facility] Comment on above: Performed By: #### P REG #### [facility] [address] [place] [address] Dr. Marianela Villa MANUAL DIFF REQ NO Normal [facility] Comment on above: Performed By: #### P REG #### [facility] [address] [place] [address] Dr. Marianela Villa MCH (RBC) [Entitic mass] 24.9 pg Critically low 26.7-34.0 [facility] Comment on above: Performed By: #### P REG #### [facility] [address] [place] [address] Dr. Marianela Villa MCHC (RBC) [Mass/Vol] 30.4 g/dL Normal 29.9-35.2 [facility] Comment on above: Performed By: #### P REG #### [facility] [address] [address] [address] Marianela Villa MCV (RBC) [Entitic vol] 81.9 fL Normal 81.0-99.0 [facility] Comment on above: Performed By: #### P REG #### [facility] [address] [address] [address] Marianela Villa MONO # 0.4 103/ul Normal 0.3-0.8 [facility] Comment on above: Performed By: #### P REG #### [facility] [address] [address] [address] Marianela Villa Monocytes/100 WBC (Bld) 5.5 % Normal 1.7-12.0 [facility] Comment on above: Performed By: #### P REG #### [facility] [address] [place] [address] Dr. Marianela Villa NEUT # 4.5 103/ul Normal 1.4-6.5 [facility] Comment on above: Performed By: #### P REG #### [facility] [address] [place] [address] Dr. Marianela Villa Neutrophils/100 WBC (Bld) 66.9 % Normal 43.0-75.0 [facility] Comment on above: Performed By: #### P REG #### [facility] [address] [place] [address] Dr. Marianela Villa Platelet mean volume (Bld) [Entitic vol] 11.1 fL Normal 9.5-13.5 [facility] Comment on above: Performed By: #### P REG #### [facility] [address] [place] [address] Dr. Marianela Villa PLT 198 103/ul Normal 150-450 [facility] Comment on above: Performed By: #### P REG #### [facility] [address] [place] [address] Dr. Marianela Villa RBC 4.26 106/ul Normal 4.20-5.40 [facility] Comment on above: Performed By: #### P REG #### [facility] [address] [place] [address] Dr. Marianela Villa WBC 6.8 103/ul Normal 4.0-11.0 [facility] Comment on above: Performed By: #### P REG #### [facility] [address] [place] [address] Dr. Marianela Villa IRONon 02-18-2022 Iron [Mass/Vol] 57.0 ug/dL Normal 50.0-170.0 [facility] Comment on above: Performed By: #### C DANY, BUN #### [facility] [address] [place] [address] Dr. Marianela Villa OCC BLD IMMUNO SCREENon OCCULT BLOOD Negative Normal NEGATIVE [facility] Comment on above: Performed By: #### O BSCRN #### [facility] [address] [place] [address] Dr. Marianela Villa Physician Referralon 022 Physician Referral [id number] D:127 Normal [facility] CBC AUTO DIFFon 02-02-2022 BASO # 0.0 103/ul Normal 0.0-0.1 [facility] Comment on above: Performed By: #### C BC #### [facility] [address] [place] [address] Dr. Marianela Villa Basophils/100 WBC (Bld) 0.4 % Normal 0.2-2.0 [facility] Comment on above: Performed By: #### C BC #### [facility] [address] [place] [address] Dr. Marianela Villa EO # 0.1 103/ul Normal 0.0-0.7 [facility] Comment on above: Performed By: #### C BC #### [facility] [address] [place] [address] Dr. Marianela Villa Eosinophils/100 WBC (Bld) 1.3 % Normal 0.9-7.0 [facility] Comment on above: Performed By: #### C BC #### [facility] [address] [place] [address] Dr. Marianela Villa Erythrocyte distribution width (RBC) [Ratio] 17.7 % Critically high 11.0-15.0 [facility] Comment on above: Performed By: #### C BC #### [facility] [address] [place] [address] Dr. Marianela Villa Hematocrit (Bld) [Volume fraction] 30.3 % Critically low 36.0-48.0 [facility] Comment on above: Performed By: #### C BC #### [facility] [address] [place] [address] Dr. Marianela Villa Hemoglobin (Bld) [Mass/Vol] 9.1 g/dL Critically low 12.0-16.0 [facility] Comment on above: Performed By: #### C BC #### [facility] [address] [place] [address] Dr. Marianela Villa IG # 0.01 10e3/ul Normal 0.00-0.03 [facility] Comment on above: Performed By: #### C BC #### [facility] [address] [place] [address] Dr. Marianela Villa IG % 0.1 % Normal 0.0-0.5 [facility] Comment on above: Performed By: #### C BC #### [facility] [address] [place] [address] Dr. Marianela Villa LYMPH # 1.9 103/ul Normal 1.2-3.8 [facility] Comment on above: Performed By: #### C BC #### [facility] [address] [place] [address] Dr. Marianela Villa Lymphocytes/100 WBC (Bld) 28.6 % Normal 20.5-60.0 [facility] Comment on above: Performed By: #### C BC #### [facility] [address] [place] [address] Dr. Marianela Villa MANUAL DIFF REQ NO Normal [facility] Comment on above: Performed By: #### C BC #### [facility] [address] [place] [address] Dr. Marianela Villa MCH (RBC) [Entitic mass] 23.3 pg Critically low 26.7-34.0 [facility] Comment on above: Performed By: #### C BC #### [facility] [address] [place] [address] Dr. Marianela Villa MCHC (RBC) [Mass/Vol] 30.0 g/dL Normal 29.9-35.2 [facility] Comment on above: Performed By: #### C BC #### [facility] [address] [place] [address] Dr. Marianela Villa MCV (RBC) [Entitic vol] 77.5 fL Critically low 81.0-99.0 [facility] Comment on above: Performed By: #### C BC #### [facility] [address] [place] [address] Dr. Marianela Villa MONO # 0.5 103/ul Normal 0.3-0.8 [facility] Comment on above: Performed By: #### C BC #### [facility] [address] [place] [address] Dr. Marianela Villa Monocytes/100 WBC (Bld) 6.7 % Normal 1.7-12.0 [facility] Comment on above: Performed By: #### C BC #### [facility] [address] [place] [address] Dr. Marianela Villa NEUT # 4.2 103/ul Normal 1.4-6.5 [facility] Comment on above: Performed By: #### C BC #### [facility] [address] [place] [address] Dr. Marianela Villa Neutrophils/100 WBC (Bld) 62.9 % Normal 43.0-75.0 [facility] Comment on above: Performed By: #### C BC #### [facility] [address] [place] [address] Dr. Marianela Villa Platelet mean volume (Bld) [Entitic vol] 11.0 fL Normal 9.5-13.5 [facility] Comment on above: Performed By: #### C BC #### [facility] [address] [place] [address] Dr. Marianela Villa PLT 284 103/ul Normal 150-450 [facility] Comment on above: Performed By: #### C BC #### [facility] [address] [place] [address] Dr. Marianela Villa RBC 3.91 106/ul Critically low 4.20-5.40 [facility] Comment on above: Performed By: #### C BC #### [facility] [address] [place] [address] Dr. Marianela Villa WBC 6.7 103/ul Normal 4.0-11.0 [facility] Comment on above: Performed By: #### C BC #### [facility] [address] [place] [address] Dr. Marianela Villa CRPon 02-02-2022 CRP [Mass/Vol] mg/L Normal <=1.0 [facility] Comment on above: Performed By: #### C DANY BUN #### [facility] [address] [place] [address] Dr. Marianela Villa FREE T3on 02-02-2022 FREE T3 2.06 pg/mlL Critically low 2.18-3.98 [facility] Comment on above: Performed By: #### C DANY BUN #### [facility] [address] [place] [address] Dr. Marianela Villa FREE T4on 02-02-2022 Free T4 [Mass/Vol] 0.89 ng/dL Normal 0.76-1.46 [facility] Comment on above: Performed By: #### P REG #### [facility] [address] [place] [address] Dr. Marianela Villa GLYCOHEMOGLOBIN A1Con 2021 ADA RECOMMENDATION SEE BELOW Normal [facility] Comment on above: Result Comment: ADA RECOMMENDED LIMIT 4.0 - 6.0 ADA THERAPEUTIC TARGET < 7.0 ACTION SUGGESTED > 7.0 Performed By: #### C DANY BUN #### [facility] [address] [place] [address] Dr. Marianela Villa Glucose [Mass/Vol] 131 mg/dL Normal [facility] Comment on above: Performed By: #### C DANY, BUN #### [facility] [address] [address] [address] Marianela iVlla HbA1c (Bld) [Mass fraction] 6.2 % Normal 4.5-6.2 [facility] Comment on above: Performed By: #### C DANY, BUN #### [facility] [address] [address] [address] Marianela Villa IRONon 02-02-2022 Iron [Mass/Vol] 15.0 ug/dL Critically low 50.0-170.0 [facility] Comment on above: Performed By: #### P REG #### [facility] [address] [place] [address] Dr. Marianela Villa LIPID PROFILEon 02-02-2022 CHOL-HDL RATIO NORM SEE BELOW Normal [facility] Comment on above: Result Comment: 3.3 - 4.4 LOW RISK 4.4 - 7.1 AVERAGE RISK 7.1 - 11.0 MODERATE RISK >11.0 HIGH RISK Performed By: #### C DANY, BUN #### [facility] [address] [place] [address] Dr. Marianela Villa Cholesterol [Mass/Vol] 187 mg/dL Normal <=200 [facility] Comment on above: Performed By: #### C DANY, BUN #### [facility] [address] [place] [address] Dr. Marianela Villa Cholesterol in HDL [Mass/Vol] 56 mg/dL Normal 40-60 [facility] Comment on above: Performed By: #### C DANY, BUN #### [facility] [address] [place] [address] Dr. Marianela Villa Cholesterol in LDL [Mass/Vol] 114.6 mg/dL Normal [facility] Comment on above: Performed By: #### C DANY, BUN #### [facility] [address] [place] [address] Dr. Marianela Villa Cholesterol.total/Chol esterol in HDL [Mass ratio] 3.3 {ratio} Normal [facility] Comment on above: Performed By: #### C DANY, BUN #### [facility] [address] [place] [address] Dr. Marianela Villa HDL NORMAL > or = 60 mg/dl - LO W CARDIOVASCULAR RISK <40 mg/dl - HIGH CARDIOVASCULAR RISK Normal [facility] Comment on above: Performed By: #### C DANY, BUN #### [facility] [address] [place] [address] Dr. Marianela Villa LDL CALC NORMAL SEE BELOW Normal [facility] Comment on above: Result Comment: <100 mg/dl OPTIMAL 100 - 129 mg/dl NEAR OR ABOVE OPTIMAL 130 - 159 mg/dl BORDERLINE HIGH 160 - 189 mg/dl HIGH >190 mg/dl VERY HIGH Performed By: #### C DANY, BUN #### [facility] [address] [place] [address] Dr. Marianela Villa Triglyceride [Mass/Vol] 82 mg/dL Normal <=150 [facility] Comment on above: Performed By: #### C DANY, BUN #### [facility] [address] [place] [address] Dr. Marianela Villa VLDL CALC 16.4 mg/dL Normal [facility] Comment on above: Performed By: #### C DANY BUN #### [facility] [address] [place] [address] Dr. Marianela Villa MAGNESIUMon 02-02-2022 Magnesium [Mass/Vol] 2.0 mg/dL Normal 1.8-2.4 [facility] Comment on above: Performed By: #### C DANY, BUN #### [facility] [address] [place] [address] Dr. Marianela Villa PREG HCG QUALon 02-02-2022 , QUAL Negative Normal NEGATIVE [facility] Comment on above: Performed By: #### P REG #### [facility] [address] [place] [address] Dr. Marianela Villa PROF 14(COMP METB)on 022 Albumin [Mass/Vol] 4.0 g/dL Normal 3.4-5.0 [facility] Comment on above: Performed By: #### C DANY, BUN #### [facility] [address] [address] [address] Marianela Villa Albumin/Globulin [Mass ratio] 1.0 {ratio} Normal [facility] Comment on above: Performed By: #### C DANY, BUN #### [facility] [address] [address] [address] Marianela Villa ALP [Catalytic activity/Vol] 173 U/L Critically high 46-116 [facility] Comment on above: Performed By: #### C DANY, BUN #### [facility] [address] [address] [address] Marianela Villa ALT [Catalytic activity/Vol] 45 U/L Normal 14-59 [facility] Comment on above: Performed By: #### C DANY, BUN #### [facility] [address] [address] [address] Marianela Villa Anion gap [Moles/Vol] 12.9 mmol/L Normal [facility] Comment on above: Performed By: #### C DANY, BUN #### [facility] [address] [address] [address] Marianela Villa AST [Catalytic activity/Vol] 35 U/L Normal 15-37 [facility] Comment on above: Performed By: #### C DANY, BUN #### [facility] [address] [address] [address] Marianela Villa Bilirubin [Mass/Vol] 0.3 mg/dL Normal 0.2-1.0 [facility] Comment on above: Performed By: #### C DANY, BUN #### [facility] [address] [address] [address] Marianela Villa Calcium [Mass/Vol] 9.1 mg/dL Normal 8.5-10.1 [facility] Comment on above: Performed By: #### C DANY, BUN #### [facility] [address] [address] [address] Marianela Villa Chloride [Moles/Vol] 103 mmol/L Normal 98-107 [facility] Comment on above: Performed By: #### C DANY, BUN #### [facility] [address] [address] [address] Marianela Villa CO2 [Moles/Vol] 27.0 mmol/L Normal 21.0-32.0 [facility] Comment on above: Performed By: #### C DANY, BUN #### [facility] [address] [address] [address] Marianela Villa Creatinine [Mass/Vol] 0.70 mg/dL Normal 0.55-1.02 [facility] Comment on above: Performed By: #### C DANY, BUN #### [facility] [address] [address] [address] Marianela Villa EGFR-AF HAITIAN >60 Normal >=60 [facility] Comment on above: Performed By: #### C DANY, BUN #### [facility] [address] [address] [address] Marianela Villa EGFR-NON AF HAITIAN >60 Normal >=60 [facility] Comment on above: Performed By: #### C DANY, BUN #### [facility] [address] [address] [address] Marianela Villa Globulin (S) [Mass/Vol] 3.9 g/dL Normal [facility] Comment on above: Performed By: #### C DANY, BUN #### [facility] [address] [address] [address] Marianela Villa Glucose [Mass/Vol] 88 mg/dL Normal 74-106 [facility] Comment on above: Performed By: #### C DANY, BUN #### [facility] [address] [address] [address] Marianela Villa Potassium [Moles/Vol] 3.9 mmol/L Normal 3.5-5.1 [facility] Comment on above: Performed By: #### C DANY, BUN #### [facility] [address] [address] [address] Marianela Villa Protein [Mass/Vol] 7.9 g/dL Normal 6.4-8.2 [facility] Comment on above: Performed By: #### C DANY, BUN #### [facility] [address] [address] [address] Marianela Villa Sodium [Moles/Vol] 139 mmol/L Normal 136-145 [facility] Comment on above: Performed By: #### C DANY, BUN #### [facility] [address] [address] [address] Marianela Villa Urea nitrogen [Mass/Vol] 6.0 mg/dL Critically low 7.0-18.0 [facility] Comment on above: Performed By: #### C DANY, BUN #### [facility] [address] [place] [address] Dr. Marianela Villa Urea nitrogen/Creatinine [Mass ratio] 8.6 mg/mg Normal [facility] Comment on above: Performed By: #### C DANY, BUN #### [facility] [address] [place] [address] Dr. Marianela Villa [facility] SED RATE 49 mm/hr Critically high <=20 [facility] Comment on above: Performed By: #### C BC #### [facility] [address] [address] [address] Marianela Villa TSHon 02-02-2022 TSH 1.378 uIU/mL Normal 0.358-3.74 0 [facility] Comment on above: Performed By: #### C DANY, BUN #### [facility] [address] [address] [address] Marianela Villa UA RANDOM W/MICROSCOPICon BACTERIA NONE SEEN Normal NONE SEEN [facility] Comment on above: Performed By: #### P REG #### [facility] [address] [place] [address] Dr. Marianela Villa Bilirubin Ql (U) Negative Normal NEGATIVE [facility] Comment on above: Performed By: #### P REG #### [facility] [address] [place] [address] Dr. Marianela Villa CAST NONE SEEN Normal NONE SEEN [facility] Comment on above: Performed By: #### P REG #### [facility] [address] [place] [address] Dr. Marianela Villa Clarity (U) CLEAR Normal CLEAR [facility] Comment on above: Performed By: #### P REG #### [facility] [address] [address] [address] Marianela Villa Color (U) LT. YELLOW Normal YELLOW [facility] Comment on above: Performed By: #### P REG #### [facility] [address] [place] [address] Dr. Marianela Villa Crystals LM Nom (Urine sed) NONE SEEN Normal NONE SEEN [facility] Comment on above: Performed By: #### P REG #### [facility] [address] [place] [address] Dr. Marianela Villa Epithelial cells LM Ql (Urine sed) FEW Abnormal NONE SEEN /RARE [facility] Comment on above: Performed By: #### P REG #### [facility] [address] [place] [address] Dr. Marianela Villa Glucose Ql (U) Negative Normal NEGATIVE [facility] Comment on above: Performed By: #### P REG #### [facility] [address] [place] [address] Dr. Marianela Villa Hemoglobin Ql (U) Negative Normal NEGATIVE [facility] Comment on above: Performed By: #### P REG #### [facility] [address] [place] [address] Dr. Marianela Villa Ketones Ql (U) Negative Normal NEGATIVE [facility] Comment on above: Performed By: #### P REG #### [facility] [address] [place] [address] Dr. Marianela Villa LEUKOCYTES Negative Normal NEGATIVE [facility] Comment on above: Performed By: #### P REG #### [facility] [address] [place] [address] Dr. Marianela Villa MUCOUS NONE SEEN Normal NONE SEEN [facility] Comment on above: Performed By: #### P REG #### [facility] [address] [place] [address] Dr. Marianela Villa Nitrite Ql (U) Negative Normal NEGATIVE [facility] Comment on above: Performed By: #### P REG #### [facility] [address] [place] [address] Dr. Marianela Villa pH (U) 6.5 [pH] Normal 5-9 [facility] Comment on above: Performed By: #### P REG #### [facility] [address] [place] [address] Dr. Marianela Villa RBC NONE SEEN Abnormal 0-2 [facility] Comment on above: Performed By: #### P REG #### [facility] [address] [place] [address] Dr. Marianela Villa SPEC GRAVITY <=1.005 Abnormal 1.005-<=1. 025 [facility] Comment on above: Performed By: #### P REG #### [facility] [address] [place] [address] Dr. Marianela Villa UA PROTEIN Negative Normal NEGATIVE/ TRACE [facility] Comment on above: Performed By: #### P REG #### [facility] [address] [place] [address] Dr. Marianela Villa Urobilinogen Qn (U) 0.2 {Trish'U}/dL Normal 0.2 - 1. 0 [facility] Comment on above: Performed By: #### P REG #### [facility] [address] [place] [address] Dr. Marianela Villa WBC NONE SEEN Normal NONE SEEN [facility] Comment on above: Performed By: #### P REG #### [facility] [address] [place] [address] Dr. Marianela Villa VITAMIN B12on 02-02-2022 Cobalamin (Vitamin B12) [Mass/Vol] 630.0 pg/mL Normal 193.0-986. 0 [facility] Comment on above: Performed By: #### P REG #### [facility] [address] [place] [address] Dr. Marianela Villa VITAMIN D 25 OHon 02-02-2022 VIT D 25-OH 42.7 ng/mL Normal [facility] Comment on above: Performed By: #### P REG #### [facility] [address] [address] [address] Marianela Villa VIT D RANGES SEE BELOW Normal [facility] Comment on above: Result Comment: <20 ng/mL Vit D deficient 20 - <30 ng/mL Vit D insufficient 30 - 100 ng/mL Vit D sufficient >100 ng/mL Potential Toxicity Performed By: #### P REG #### [facility] [address] [address] [address] Marianela Villa [facility] Reporton 01-02-2018 Report Normal [facility] Comment on above: Performed By: #### D NASTUDY #### Performed at [facility], [address] [place] [address] Vital Signs Date Time Vital Sign Value Performing Clinician Facility 11-27-2024 08:55-0400 Body mass index (BMI) [Ratio] 42.8 kg/m2 Lindacarolina Redmond 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 Work Phone: [facility] 11-27-2024 08:55-0400 Body temperature 97.5 [degF] Linda Nyla 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 Work Phone: [facility] 11-27-2024 08:55-0400 Body weight 120.29 kg Linda Aichkaliaz 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 Work Phone: [facility] 11-27-2024 08:55-0400 Diastolic blood pressure 78 mm[Hg] Linda Nyla 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 Work Phone: [facility] 11-27-2024 08:55-0400 Heart rate 75 /min Linda Nyla 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 Work Phone: [facility] 11-27-2024 08:55-0400 Respiratory rate 20 /min Linda Carhkaliaz 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 Work Phone: [facility] 11-27-2024 08:55-0400 SaO2% (BldA) [Mass fraction] 98 % Linda Nyla 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 Work Phone: [facility] 11-27-2024 08:55-0400 Systolic blood pressure 106 mm[Hg] Linda Carhrei 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 Work Phone: [facility] 10-09-2024 13:22-0400 Body height 167.64 cm Linda Aichholz Work Phone: [facility] [place] 10-09-2024 13:22-0400 Body mass index (BMI) [Ratio] 41.1 kg/m2 Linda Aichholz Work Phone: [facility] [place] 10-09-2024 13:22-0400 Body weight 115.66 kg Linda Aichholz Work Phone: [facility] [place] 10-09-2024 13:22-0400 Diastolic blood pressure 78 mm[Hg] Linda Aichholz Work Phone: [facility] [place] 10-09-2024 13:22-0400 Heart rate 79 /min Linda Aichholz Work Phone: [facility] [place] 10-09-2024 13:22-0400 Systolic blood pressure 123 mm[Hg] Linda Aichholz Work Phone: [facility] [place] 08-06-2024 10:54-0400 Body height 167.64 cm [facility] 08-06-2024 10:54-0400 Body mass index (BMI) [Ratio] 40.6 kg/m2 [facility] 08-06-2024 10:54-0400 Body weight 114.3 kg [facility] 08-06-2024 10:54-0400 Heart rate 66 /min [facility] 08-01-2024 09:35-0400 Diastolic blood pressure 64 mm[Hg] Oneil Walkup PA Work Phone: [employer] [facility] 08-01-2024 09:35-0400 Heart rate 72 /min [facility] Walkup [facility] 08-01-2024 09:35-0400 Respiratory rate 16 /min Oneil Walkup PA Work Phone: [facility] [employer] [facility] 08-01-2024 09:35-0400 SaO2% (BldA) [Mass fraction] 98 % Oneil [employer] PA [facility] [employer] 08-01-2024 09:35-0400 Systolic blood pressure 118 mm[Hg] Oneil Walkup [facility] Phone[facility] 08-01-2024 09:27-0400 Body height 167.6 cm Oneil [employer] PA Work [facility] 08-01-2024 09:27-0400 Body mass index (BMI) [Ratio] 41.66 kg/m2 Oneil Walkup PA [facility] 08-01-2024 09:27-0400 Body weight 117.03 kg Oneil Walkup PA Work Phone: [facility] [employer] 05-30-2024 09:15-0500 Body mass index (BMI) [Ratio] 41.48 kg/m2 Linda Redmond 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 Work Phone: [facility] 05-30-2024 09:15-0500 Body temperature 98.71 [degF] Linda Redmond 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 Work Phone: [facility] 05-30-2024 09:15-0500 Body weight 116.57 kg Linda Redmond 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 Work Phone: [facility] Comment on above: with winter coat on 05-30-2024 09:15-0500 Diastolic blood pressure 88 mm[Hg] Linda Redmond 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 Work Phone: [facility] 05-30-2024 09:15-0500 Heart rate 95 /min Linda Redmond 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 Work Phone: [facility] 05-30-2024 09:15-0500 Respiratory rate 18 /min Linda Redmond 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 Work Phone: [facility] 05-30-2024 09:15-0500 SaO2% (BldA) [Mass fraction] 98 % Linda Redmond 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 Work Phone: [facility] 05-30-2024 09:15-0500 Systolic blood pressure 118 mm[Hg] Linda Redmond 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 Work Phone: [facility] 05-02-2024 09:23-0500 Diastolic blood pressure 72 mm[Hg] Oneil Walkup PA [facility] 05-02-2024 09:23-0500 Systolic blood pressure 114 mm[Hg] Oneil Walkup PA [facility] 05-02-2024 09:22-0500 Body height 167.6 cm Oneil Walkup PA [facility] 05-02-2024 09:22-0500 Body mass index (BMI) [Ratio] 40.96 kg/m2 Oneil Walkup PA Work Phone: [facility] [employer] 05-02-2024 09:22-0500 Body temperature 98.01 [degF] Oneil Walkup PA [facility] 05-02-2024 09:22-0500 Body weight 115.12 kg Oneil Walkup PA [facility] 05-02-2024 09:22-0500 Heart rate 75 /min Oneil Walkup PA Work Phone: [facility] [employer] 05-02-2024 09:22-0500 SaO2% (BldA) [Mass fraction] 97 % Oneil Walkup PA [facility] [employer] 03-22-2024 08:20-0500 Body height 167.6 cm [facility] [address] [facility] 03-22-2024 08:20-0500 Body mass index (BMI) [Ratio] 40.35 kg/m2 [facility] [address] [facility] 03-22-2024 08:20-0500 Body weight 113.4 kg [facility] [employer] [facility] 03-19-2024 14:21-0500 Body height 167.6 cm Eleni Ybarra MD Work Phone: [facility] 03-19-2024 14:21-0500 Body mass index (BMI) [Ratio] 41.32 kg/m2 Eleni Ybarra MD Work Phone: [facility] 03-19-2024 14:21-0500 Body weight 116.12 kg Eleni Ybarra MD Work Phone: [facility] 02-23-2024 10:29-0500 Body mass index (BMI) [Ratio] 41.13 kg/m2 Linda Nyla 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 Work Phone: [facility] 02-23-2024 10:29-0500 Body temperature 99.39 [degF] Linda Zenaz 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 Work Phone: [facility] 02-23-2024 10:29-0500 Body weight 115.58 kg Linda Carhholz 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 Work Phone: [facility] 02-23-2024 10:29-0500 Diastolic blood pressure 80 mm[Hg] Linda Carhholz 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 Work Phone: [facility] 02-23-2024 10:29-0500 Heart rate 72 /min Linda Carhholz 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 Work Phone: [facility] 02-23-2024 10:29-0500 Respiratory rate 19 /min Linda Zenaz 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 Work Phone: [facility] 02-23-2024 10:29-0500 SaO2% (BldA) [Mass fraction] 99 % Linda Carhholz 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 Work Phone: [facility] 02-23-2024 10:29-0500 Systolic blood pressure 120 mm[Hg] Linda Carhholz 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 Work Phone: [facility] 01-31-2024 11:14-0400 Body height 167.6 cm Oneil PEÑA Work Phone: [facility] 01-31-2024 11:14-0400 Body mass index (BMI) [Ratio] 41.32 kg/m2 Oneil Walkup PA [facility] 01-31-2024 11:14-0400 Body temperature 98.2 [degF] Oneil Walkup PA [facility] 01-31-2024 11:14-0400 Body weight 116.12 kg Oneil Walkup PA Work Phone: [facility] [employer] 01-31-2024 11:14-0400 Diastolic blood pressure 78 mm[Hg] Oneil Walkup PA Work Phone: [facility] [employer] 01-31-2024 11:14-0400 Heart rate 81 /min Oneil Walkup PA Work Phone: [facility] [employer] 01-31-2024 11:14-0400 SaO2% (BldA) [Mass fraction] 98 % Oneil Walkup PA Work Phone: [facility] [employer] 01-31-2024 11:14-0400 Systolic blood pressure 132 mm[Hg] Oneil Walkup PA Work Phone: [facility] [employer] [facility] 01-09-2024 09:23-0400 Body height 167.6 cm Linda Redmond 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 Work Phone: [facility] 01-09-2024 09:23-0400 Body mass index (BMI) [Ratio] 41.51 kg/m2 Linda Redmond 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 Work Phone: [facility] [employer] 01-09-2024 09:23-0400 Body temperature 98.01 [degF] Linda Redmond 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 Work Phone: [facility] 01-09-2024 09:23-0400 Body weight 116.67 kg Linda Redmond 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 Work Phone: [facility] 01-09-2024 09:23-0400 Diastolic blood pressure 80 mm[Hg] Linda Redmond 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 Work Phone: [facility] 01-09-2024 09:23-0400 Heart rate 71 /min Linda Coronadorei 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 Work Phone: [facility] 01-09-2024 09:23-0400 Respiratory rate 19 /min Linda Coronadorei 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 Work Phone: [facility] 01-09-2024 09:23-0400 SaO2% (BldA) [Mass fraction] 98 % Linda Coronadorei 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 Work Phone: [facility] 01-09-2024 09:23-0400 Systolic blood pressure 122 mm[Hg] Linda Coronadorei 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 Work Phone: [facility] 01-02-2024 09:01-0400 Body height 167.6 cm [facility] 01-02-2024 09:01-0400 Body mass index (BMI) [Ratio] 41.92 kg/m2 [facility] [address] [place] [address] 01-02-2024 09:01-0400 Body temperature 98.49 [degF] [facility] [address] [place] [address] 01-02-2024 09:01-0400 Body weight 117.8 kg [facility] 01-02-2024 09:01-0400 Diastolic blood pressure 54 mm[Hg] [facility] 01-02-2024 09:01-0400 Heart rate 74 /min [facility] 01-02-2024 09:01-0400 Respiratory rate 16 /min [facility] 14 [facility] 01-02-2024 09:01-0400 SaO2% (BldA) [Mass fraction] 100 % [facility] 01-02-2024 09:01-0400 Systolic blood pressure 114 mm[Hg] [facility] 12-21-2023 10:06-0400 Diastolic blood pressure 66 mm[Hg] Gurpreet Allison MD Work Phone: [facility] 12-21-2023 10:06-0400 Systolic blood pressure 108 mm[Hg] Gurpreet Allison MD Work Phone: [facility] [employer] [facility] 12-21-2023 09:56-0400 Body height 167.6 cm Gurpreet Allison MD Work Phone: [facility] 12-21-2023 09:56-0400 Body mass index (BMI) [Ratio] 41.35 kg/m2 Gurpreet Allison MD Work Phone: [facility] 12-21-2023 09:56-0400 Body temperature 98.2 [degF] Gurpreet Allison MD Work Phone: [facility] 12-21-2023 09:56-0400 Body weight 116.21 kg Gurpreet Allison MD Work Phone: [facility] 12-21-2023 09:56-0400 Heart rate 72 /min Gurpreet Allison MD Work Phone: [facility] 12-21-2023 09:56-0400 SaO2% (BldA) [Mass fraction] 96 % Gurpreet Allison MD Work Phone: [facility] 12-14-2023 09:26-0400 Body height 167.6 cm Linda Redmond 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 Work Phone: [facility] 12-14-2023 09:26-0400 Body mass index (BMI) [Ratio] 41.03 kg/m2 Linda Redmond 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 Work Phone: [facility] 12-14-2023 09:26-0400 Body temperature 98.4 [degF] Linda Redmond 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 Work Phone: [facility] 12-14-2023 09:26-0400 Body weight 115.3 kg Linda Redmond 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 Work Phone: [facility] 12-14-2023 09:26-0400 Diastolic blood pressure 82 mm[Hg] Linda Redmond 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 Work Phone: [facility] 12-14-2023 09:26-0400 Heart rate 71 /min Linda Freitasjamila 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 Work Phone: [facility] 12-14-2023 09:26-0400 Respiratory rate 18 /min Linda Redmond 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 Work Phone: [facility] 12-14-2023 09:26-0400 SaO2% (BldA) [Mass fraction] 99 % Linda Redmond 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 Work Phone: [facility] 12-14-2023 09:26-0400 Systolic blood pressure 118 mm[Hg] Linda Redmond 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 Work Phone: [facility] 12-01-2023 13:42-0400 Body mass index (BMI) [Ratio] 40.96 kg/m2 Johanna PEÑA Work Phone: [facility] 12-01-2023 13:42-0400 Body weight 115.12 kg Johanna PEÑA Work Phone: [facility] 12-01-2023 13:42-0400 Diastolic blood pressure 80 mm[Hg] Johanna PEÑA Work Phone: [facility] 12-01-2023 13:42-0400 Systolic blood pressure 118 mm[Hg] Johanna Eaton PA Work Phone: [facility] 03-05-2022 13:19-0500 Blood Pressure Location Halley JOY [facility] 03-05-2022 13:19-0500 Diastolic blood pressure 76 mm[Hg] Halley JOY [facility] 03-05-2022 13:19-0500 Heart rate 70 /min Halley JOY [facility] 03-05-2022 13:19-0500 Respiratory rate 16 /min Halley JOY [facility] 03-05-2022 13:19-0500 Systolic blood pressure 120 mm[Hg] Halley JOY [facility] Encounters Encounter Date Encounter Type Care Provider Facility Start: 11-27-2024 End: 11-27-2024 Telephone encounter Linda Nyla 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 Work Phone: [facility] Start: 11-27-2024 End: 11-27-2024 Patient encounter status Linda Coornadorei 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 Work Phone: [facility] Healthcare Start: 11-27-2024 End: 11-27-2024 Periodic preventive med est patient 40-64yrs Linda Nyla 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 Work Phone: [facility] CW FM Comment on above: Encounter for adult wellness visit (Primary Dx); Morbid (severe) obesity due to excess calories ([facility]); Anxiety and depression ; Alkaline phosphatase elevation; Elevated serum gamma-glutamyl transferase level; Encounter for screening mammogram for malignant neoplasm of breast Start: 11-27-2024 End: 11-27-2024 ambulatory LINDA REDMOND Not Available Start: 10-09-2024 End: 10-09-2024 ambulatory Linda Redmond Work Phone: [facility] Work Phone: Start: 10-09-2024 End: 10-09-2024 Patient encounter procedure Patricia [facility]ab[facility] Work Phone: Start: 08-21-2024 End: 08-21-2024 ambulatory Patricia Caraballo Facility:[facility] Start: 08-21-2024 Non-patient / Non-visit Patricia Mejia [facility] Work Phone: Start: 08-13-2024 End: 08-13-2024 Patient encounter procedure Linda Redmond Work Phone: [facility] Ctr-Ultrasound [place] Work Phone: Start: 08-13-2024 End: 08-13-2024 ambulatory Linda Redmond Work Phone: [facility] Work Phone: Start: 08-06-2024 End: 08-06-2024 ambulatory Linda Redmond Work Phone: [facility] Work Phone: Start: 08-06-2024 End: 08-06-2024 Patient encounter procedure [facility] Work Phone: Start: 08-01-2024 End: 08-01-2024 Office outpatient visit 15 minutes Oneil PEÑA Work Phone: [facility] Gynecology Oncology, A Department of [facility] Comment on above: Menopause (Primary D x); Endometriosis Start: 08-01-2024 End: 08-01-2024 ambulatory ONEIL CEJA [facility] Start: 05-31-2024 End: 05-31-2024 Orders Only Linda Redmond 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 Work Phone: [facility] Comment on above: Alkaline phosphatase elevation (Primary Dx); Elevated serum gamma-glutamyl transferase level Start: 05-30-2024 End: 05-30-2024 Bamboo flowsheet Linda Redmond 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 Work Phone: [facility] Start: 05-30-2024 End: 05-30-2024 Bamboo flowsheet Linda Redmond 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 Work Phone: [facility] Start: 05-30-2024 End: 05-30-2024 Clinisync Result Encounter Linda Redmond NP Work Phone: [facility] External Department Unsolicited Start: 05-30-2024 End: 05-30-2024 Office outpatient visit 25 minutes Linda Redmond 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 Work Phone: [facility] Comment on above: Alkaline phosphatase elevation (Primary Dx); Morbid (severe) obesity due to excess calories (CMS/HCC); Body mass index (BMI) 40.0-44.9, adult (CMS/HCC); Calculus of gallbladder without cholecystitis without obstruction; Anxiety and depression (CMS/HCC); Elevated serum gamma-glutamyl transferase level Start: 05-30-2024 End: 05-30-2024 ambulatory LINDA NYLA Not Available Start: 05-21-2024 End: 05-21-2024 Refill Oneil Nolasco Chucky PA Work Phone: [facility] Gy[facility] Oncology, A Department of [facility] Comment on above: Menopause Start: 05-02-2024 End: 05-02-2024 Office outpatient visit 15 minutes Oneil Constance Ceja PA Work Phone: [facility] Gy[facility] Oncology, A Department of [facility] Comment on above: Endometriosis (Prima ry Dx); Menopause; Hot flash, menopausal Start: 05-02-2024 End: 05-02-2024 ambulatory ONEIL CEJA [facility] Start: 03-26-2024 End: 03-26-2024 Telephone encounter 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 Redmond 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 Work Phone: [facility] Start: 03-22-2024 End: 03-23-2024 Telephone encounter [facility] Start: 03-22-2024 End: 03-25-2024 [facility] Start: 03-21-2024 End: 03-21-2024 Patient encounter procedure [facility] Pat Phone Call Provider 1 [facility] Comment on above: Arrived Start: 03-19-2024 End: 03-19-2024 Patient encounter procedure Caleb Shrestha MD Work Phone: [facility] General Surgery Comment on above: Gall stones Start: 03-19-2024 End: 03-19-2024 ambulatory [facility] [place] Start: 03-19-2024 ambulatory LINDA REDMOND [facility] Amb[facility] Start: 02-23-2024 End: 02-23-2024 Bamboo flowsheet Linda Redmond 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 Work Phone: [facility] Start: 02-23-2024 End: 02-23-2024 Bamboo flowsheet Linda Freitasz 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 Work Phone: [facility] FM Start: 02-23-2024 End: 02-23-2024 Clinisync Result Encounter Linda Nyla 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 Work Phone: [facility] External Department Unsolicited Start: 02-23-2024 End: 02-23-2024 Office outpatient visit 25 minutes Linda Redmond 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 Work Phone: [facility] FM Comment on above: Subacute maxillary s inusitis (Primary Dx); Morbid (severe) obesity due to excess calories (CMS/HCC); Body mass index (BMI) 40.0-44.9, adult (CMS/HCC); Elevated serum gamma-glutamyl transferase level; Alkaline phosphatase elevation; Calculus of gallbladder without cholecystitis without obstruction Start: 02-23-2024 End: 02-23-2024 ambulatory LINDA NYLA Not Available Start: 02-15-2024 End: 02-15-2024 Orders Only Linda Redmond 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 Work Phone: [facility] FM Comment on above: Alkaline phosphatase elevation (Primary Dx) Start: 02-01-2024 End: 02-01-2024 Orders Only Oneil Ceja PA Work Phone: [facility] Comment on above: Gall stones (Primary Dx); Menopause Start: 01-31-2024 End: 01-31-2024 Postop follow up visit related to original px Oneil Ceja PA Work Phone: [facility] Comment on above: Postoperative visit (Primary Dx) Start: 01-31-2024 End: 01-31-2024 ambulatory ONEIL CEJA [facility] Start: 01-13-2024 End: 01-13-2024 Evaluation and management of inpatient LINDA [facility] Start: 01-13-2024 End: 01-13-2024 Evaluation and management of inpatient GURPREET Santos ALLISON [facility] Start: 01-09-2024 End: 01-09-2024 Bamboo flowsheet Linda Redmond 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 Work Phone: [facility] FM Start: 01-09-2024 End: 01-09-2024 Bamboo flowsheet Linda Coronadorei 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 Work Phone: [facility] Start: 01-09-2024 End: 01-09-2024 Clinisync Result Encounter Linda Coronadorei 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 Work Phone: [facility] External Department Unsolicited Start: 01-09-2024 End: 01-09-2024 Office outpatient visit 25 minutes Linda Coronadorei 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 Work Phone: [facility] Comment on above: Elevated serum gamma -glutamyl transferase level (Primary Dx); Alkaline phosphatase elevation; Morbid (severe) obesity due to excess calories (CMS/HCC); Left ovarian cyst; Calculus of gallbladder without cholecystitis without obstruction; Nephrolithiasis Start: 01-09-2024 End: 01-09-2024 ambulatory LINDA CORONADOREI Not Available Start: 01-02-2024 End: 01-02-2024 Patient encounter procedure [facility] Pat Provider 14 [facility] Comment on above: Pre-op testing (Prim otilio Dx); Pelvic pain; Pelvic mass; Preop testing Start: 01-02-2024 End: 01-02-2024 Patient encounter status [facility] Start: 01-02-2024 End: 01-02-2024 ambulatory GURPREET ALLISON [facility] Start: 12-21-2023 Encounter for other preprocedural examination ELENI [facility] Start: 12-21-2023 End: 12-21-2023 Office outpatient new 60 minutes Gurpreet Allison MD Work Phone: [facility] Comment on above: Pelvic pain (Primary Dx); Pelvic mass; Preop testing Start: 12-21-2023 End: 12-21-2023 Patient encounter status Gurpreet Allison MD Work Phone: [facility] Start: 12-21-2023 End: 09-18-2024 ambulatory [facility] Start: 12-21-2023 Encounter for other preprocedural examination [facility] Start: 12-14-2023 End: 12-14-2023 Bamboo flowsheet Lindacarolina Redmond 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 Work Phone: [facility] Start: 12-14-2023 End: 12-14-2023 Bamboo flowsheet Linda Nyla 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 Work Phone: [facility] Start: 12-14-2023 End: 12-14-2023 Office outpatient visit 25 minutes Linda Redmond 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 Work Phone: [facility] Comment on above: Elevated serum gamma -glutamyl transferase level (Primary Dx); Morbid (severe) obesity due to excess calories (CMS/HCC); Body mass index (BMI) 40.0-44.9, adult (CMS/HCC); Alkaline phosphatase elevation Start: 12-14-2023 End: 12-14-2023 ambulatory LINDA NYLA Not Available Start: 12-13-2023 End: 12-13-2023 Orders Only Linda Redmond 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 Work Phone: [facility] Comment on above: Alkaline phosphatase elevation (Primary Dx); Elevated serum gamma-glutamyl transferase level Start: 12-08-2023 End: 12-08-2023 Clinisync Result Encounter Linda Nyla 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 Work Phone: [facility] External Department Unsolicited Start: 12-08-2023 End: 12-08-2023 Clinisync Result Encounter Linda Nyla 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 Work Phone: [facility] External Department Unsolicited Start: 12-01-2023 End: 12-01-2023 Postop follow up visit related to original px Johanna Eaton PA Work Phone: [facility] Comment on above: Postop check Start: 12-01-2023 End: 12-01-2023 ambulatory JOHANNA EATON Not Available Start: 11-25-2023 End: 11-25-2023 Clinisync Result Encounter Josh Mohini DO Work Phone: [facility] External Department Unsolicited Start: 11-25-2023 End: 11-25-2023 Clinisync Result Encounter Josh Rajan DO Work Phone: [facility] External Department Unsolicited Start: 11-25-2023 End: 11-25-2023 ambulatory Josh Rajan [facility] Work Phone: Start: 11-25-2023 End: 11-25-2023 Departed Referred DO Josh Rajan Work Phone: [facility] Ctr-LAB [facility] Start: 07-19-2022 Encounter for preprocedural laboratory examination DR JOSH RAJAN . [facility] Start: 07-16-2022 End: 07-17-2022 ambulatory SKID STRAPPER LINDA NYLA Facility:[facility] Start: 07-13-2022 End: 07-14-2022 ambulatory SKID STRAPPER LINDA NYLA Facility:[facility] Start: 07-13-2022 End: 07-14-2022 Encounter for preprocedural laboratory examination YANG REDMOND Facility:[facility] Start: 07-09-2022 Encounter for preprocedural cardiovascular examination DR JOSH RAJAN . [facility] Start: 07-09-2022 Encounter for preprocedural laboratory examination DR JOSH RAJAN . [facility] Start: 07-01-2022 End: 07-02-[address] JOSH RAJAN . Facility:[facility] Start: 07-01-2022 End: 07-02-2022 Encounter for preprocedural cardiovascular examination DR JOSH RAJAN . Facility:[facility] Start: 05-05-2022 End: 05-06-2022 ambulatory SKID STRAPPER LINDA NYLA Facility:[facility] Start: 04-26-2022 End: 04-26-2022 ambulatory SKID STRAPPER LINDA NYLA Facility:[facility] Start: 04-16-2022 End: 04-17-2022 ambulatory YANG CONDEA NYLA Facility:[facility] Start: 04-14-2022 End: 04-15-2022 ambulatory Halley JOY Facility:[facility] Start: 04-14-2022 End: 04-14-2022 Patient encounter procedure Halley JOY General Surgery Nill/Said Bruno Start: 04-07-2022 End: 04-08-2022 ambulatory Halley JOY Facility:[id number] Start: 03-31-2022 End: 04-01-[address] HALLEY JOY . Facility:[facility] Start: 03-11-2022 End: 03-11-2022 ambulatory YANG CORONADOREI Facility:[facility] Start: 03-05-2022 End: 03-06-2022 ambulatory Halley JOY Facility:[facility] Start: 03-05-2022 End: 03-05-2022 Patient encounter procedure Halley JOY General Surgery Nill/Said Bruno Start: 03-01-2022 End: 03-02-2022 ambulatory YANG LERNER CARAlexREI Facility:[facility] Start: 02-18-2022 End: 02-19-2022 ambulatory YANG LERNER CARAlexKALIAJamila Facility:[facility] Start: 02-04-2022 End: 02-04-2022 ambulatory YANG CORONADOKALIAJamila Facility:[facility] Start: 02-03-2022 ambulatory Halley JOY Facility:[facility] Start: 02-02-2022 End: 02-03-2022 ambulatory YANG REDMOND Facility:[facility] Start: 01-02-2018 Patient encounter procedure NO PCP [facility] Procedures Date Procedure Procedure Detail Performing Clinician Start: 08-13-2024 Ultrasonography of liver Linda Nyla Work Phone: Start: 08-06-2024 Hepatitis A virus antibody, IgM type Linda Nyla Work Phone: Comment on above: A negative anti-HAV IgM result suggests no recent orcurrent HAV infection. Start: 08-06-2024 Hepatitis B core antibody measurement Linda Nyla Work Phone: Start: 08-06-2024 Hepatitis B core antibody measurement, IgM type Linda Caralexholz Work Phone: Comment on above: Performed at: - [facility] [id number] [place] [address], [place] [id number] Director: Demarco Robles PhD, Phone: [phone] Start: 08-01-2024 Follow-up visit Follow-up ONEIL CEJA Start: 05-30-2024 ALL GAMMA GLUTAMYL TRANSPEPTIDASE Linda A ichholz 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 Work Phone: Start: 05-30-2024 CCF CMP (CMP) (FOR REMOTE [facility] USE) Linda Aichholz 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 Work Phone: Start: 02-23-2024 ALL GAMMA GLUTAMYL TRANSPEPTIDASE Linda A ichholz 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 Work Phone: Start: 02-23-2024 HP LIVER PANEL Linda Aichholz 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 Work Phone: Start: 01-09-2024 ALL GAMMA GLUTAMYL TRANSPEPTIDASE Linda A ichholz 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 Work Phone: Start: 01-02-2024 Comprehensive metabolic panel Gurpreet henry MD Work Phone: Start: 01-02-2024 Ecg routine ecg w/least 12 lds trcg only w/o i&r Padma Farzaneh Giraldo MD Work Phone: Start: 12-08-2023 ALL GAMMA GLUTAMYL TRANSPEPTIDASE Linda A ichholz 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 Work Phone: Start: 12-08-2023 HP LIVER PANEL Linad Aichholz 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 Work Phone: Start: 11-25-2023 ALL CBC WITH AUTO DIFF Generic External Data Provider Start: 09-16-2023 Mammography Josh Mohini DO Work Phone: Start: 08-31-2023 End: 05-30-2024 H/O: hysterectomy History of hysterectomy Josh Mhoini DO Work Phone: Start: 04-07-2022 Colonoscopy Halley JOY Start: 04-07-2022 Esophagogastroduodenoscopy Halley LONGConstance Start: 04-04-2008 section Halley JOY Start: 04-04-2007 section Halley JOY Extraction of wisdom tooth Ej JOY Plan of Treatment Date Care Activity Detail Author Start: 12-02-2025 End: 12-02-2025 Patient encounter procedure 12/02/2025 10:00 AM EDT [facility] [address] [place] [address] Linda Redmond, SAULO [address] [place] [phone] [facility] Start: 08-01-2025 Adult BMI Screening Adult BMI Screen ing [facility] Start: 08-01-2025 Tobacco Screening Tobacco Screening [facility] Start: 05-30-2025 End: 05-30-2025 Patient encounter procedure 05/30/2025 9:00 AM EST [facility] [address] [place] [phone] Linda Redmond, 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 [address] [place] [phone] [facility] Start: 05-02-2025 Adult BMI Screening Adult BMI Screen ing [facility] Start: 03-22-2025 Adult BMI Screening Adult BMI Screen ing [facility] Start: 03-22-2025 Tobacco Screening Tobacco Screening [facility] Start: 03-19-2025 Adult BMI Screening Adult BMI Screen ing [facility] Start: 03-19-2025 Tobacco Screening Tobacco Screening [facility] Start: 01-30-2025 Adult BMI Screening Adult BMI Screen ing [facility] Start: 01-01-2025 Adult BMI Screening Adult BMI Screen ing [facility] Start: 01-01-2025 Tobacco Screening Tobacco Screening [facility] Start: 12-20-2024 Adult BMI Screening Adult BMI Screen ing [facility] Start: 12-03-2024 Influenza vaccination Influenza Vacc ine [facility] Start: 11-27-2024 End: 01-27-2026 MG Breast - bilateral Screening Bilateral screening mammogram Imaging Routine Encounter for screening mammogram for malignant neoplasm of breast Expected: 11/27/2024 (Approximate), Expires: 01/27/2026 [facility] Work Phone: Comment on above: Expected: 11/27/2024 (Approximate), Expires: 01/27/2026 Start: 11-27-2024 End: 11-27-2024 Patient encounter procedure 11/27/2024 9:00 AM EDT Office Visit [facility] [address] [place] [phone] Linda Redmond, SAULO [address] [place] [address] [facility] Start: 10-09-2024 [facility] Start: 09-15-2024 Screening for malign ant neoplasm of breast Mammogram [facility] Start: 08-06-2024 Actin smooth muscle IgG Ab [Units/volume] in Serum [facility] Start: 08-06-2024 Ceruloplasmin [Mass/volume] in Serum or Plasma [facility] Start: 08-06-2024 Hepatitis A virus Ab [Presence] in Serum by Immunoassay [facility] Start: 08-06-2024 Hepatitis A virus antibody, IgM type [facility] Start: 08-06-2024 Hepatitis B core ant ibody measurement [facility] Start: 08-06-2024 Hepatitis B core ant ibody measurement, IgM type [facility] Start: 08-06-2024 Hepatitis B virus santiago rface Ab [Presence] in Serum [facility] Start: 08-06-2024 IgG [Mass/volume] in Serum or Plasma [facility] Start: 08-06-2024 Lipoprotein a [Moles/volume] in Serum or Plasma [facility] Start: 08-06-2024 Mitochondria M2 IgG Ab [Units/volume] in Serum [facility] Start: 08-06-2024 [facility] Start: 07-31-2024 End: 07-31-2024 Patient encounter procedure 07/31/2024 9:30 AM EDT Office Visit [facility] Gynecology Oncology, A Department of [facility] [address] [place] [address] Oneil Ceja PA [address], [address] [place] [phone] [facility] Oncology, A Department of [facility] Start: 05-30-2024 End: 05-30-2025 Comprehensive metabolic 2000 panel - Serum or Plasma Comprehensive metabolic panel Lab Routine Alkaline phosphatase elevation Elevated serum gamma-glutamyl transferase level Expected: 05/30/2024 (Approximate), Expires: 05/30/2025 [facility] Comment on above: Expected: 05/30/2024 (Approximate), Expires: 05/30/2025 Start: 05-30-2024 End: 05-30-2025 Gamma glutamyl transferase [Enzymatic activity/volume] in Serum or Plasma Gamma GT Lab Routine Alkaline phosphatase elevation Elevated serum gamma-glutamyl transferase level Expected: 05/30/2024 (Approximate), Expires: 05/30/2025 [facility] Work Phone: Comment on above: Expected: 05/30/2024 (Approximate), Expires: 05/30/2025 Start: 05-30-2024 End: 05-30-2024 Patient encounter procedure 05/30/2024 9:20 AM EST Office Visit [facility] [address] [place] [phone] Linda Redmond NP [address] [place] [phone] Calculus of gallbladder without cholecystitis without obstruction (Primary Dx); Morbid (severe) obesity due to excess calories (CMS/HCC); Body mass index (BMI) 40.0-44.9, adult (CMS/HCC); Anxiety and depression (CMS/HCC); Alkaline phosphatase elevation; Elevated serum gamma-glutamyl transferase level [facility] Comment on above: Calculus of gallblad shasta without cholecystitis without obstruction (Primary Dx); Morbid (severe) obesity due to excess calories (CMS/HCC); Body mass index (BMI) 40.0-44.9, adult (CMS/HCC); Anxiety and depression (CMS/HCC); Alkaline phosphatase elevation; Elevated serum gamma-glutamyl transferase level Start: 04-26-2024 End: 04-26-2024 Patient encounter procedure 04/26/2024 9:40 AM EST Office Visit [facility] [address] [place] [address] Linda Redmond NP [address] [place] [address] [facility] Start: 04-02-2024 End: 04-02-2024 Admission to same day surgery center 04/02/2024 7:30 AM EST - 04/02/2024 9:30 AM EST Surgery [address] [phone] [place] [address] [place] [address], [address] [place] [address] DAVINCI CHOLECYSTECTOMY [facility] Comment on above: DAVINCI CHOLECYSTECT DANETTE Start: 04-02-2024 End: 04-02-2024 DAVINCI CHOLECYSTECTOMY DAVINCI CHOLECYSTECTOMY GALLSTONES 04/02/2024 7:30 AM EST [facility] Start: 04-02-2024 Subsequent hospital visit by physician 04/02/2024 7:30 AM EST Hospital Encounter [facility] Surgery [address] [place] [phone] Eleni Ybarra MD [address] [facility], [address] [place] [address] [facility] - Surgery Start: 02-23-2024 End: 02-23-2024 Patient encounter procedure [facility] Comment on above: Morbid (severe) obes ity due to excess calories (CMS/HCC) (Primary Dx); Body mass index (BMI) 40.0-44.9, adult (CMS/HCC); Elevated serum gamma-glutamyl transferase level; Alkaline phosphatase elevation; Calculus of gallbladder without cholecystitis without obstruction Start: 02-15-2024 End: 02-14-2025 DAVID BY IFA W/REFLEX ([facility] DAVID BY IFA W/REFLEX ([facility]) Lab Routine Alkaline phosphatase elevation Expected: 02/15/2024 (Approximate), Expires: 02/14/2025 [facility] Comment on above: Expected: 02/15/2024 (Approximate), Expires: 02/14/2025 Start: 02-15-2024 End: 02-14-2025 DAVID W/REFLEX IF POSITIVE DAVID W/REFLEX IF POSITIVE Lab Routine Alkaline phosphatase elevation Expected: 02/15/2024 (Approximate), Expires: 02/14/2025 [facility] Work Phone: Comment on above: Expected: 02/15/2024 (Approximate), Expires: 02/14/2025 Start: 02-15-2024 End: 02-14-2025 Gamma glutamyl transferase [Enzymatic activity/volume] in Serum or Plasma Gamma GT Lab Routine Alkaline phosphatase elevation Expected: 02/15/2024 (Approximate), Expires: 02/14/2025 [facility] Comment on above: Expected: 02/15/2024 (Approximate), Expires: 02/14/2025 Start: 02-15-2024 End: 02-14-2025 Hepatic function 2000 panel - Serum or Plasma Hepatic function panel Lab Routine Alkaline phosphatase elevation Expected: 02/15/2024 (Approximate), Expires: 02/14/2025 [facility] Work Phone: Comment on above: Expected: 02/15/2024 (Approximate), Expires: 02/14/2025 Start: 02-09-2024 End: 02-09-2024 Patient encounter procedure 02/09/2024 10:30 AM EST Office Visit [facility] [address] [place] [address] Linda Redmond NP [address] [place] [address] [facility] Start: 01-31-2024 End: 01-31-2024 Patient encounter procedure 01/31/2024 11:30 AM EDT Office Visit [facility] [address] [place] [address] [address] [place] [address] Oneil Ceja PA [address] [facility] [address] [place] [phone] [facility] Start: 01-13-2024 End: 01-13-2024 Admission to same day surgery center 01/13/2024 7:30 AM EDT - 01/13/2024 9:30 AM EDT Surgery [address] [phone] Gurpreet Allison MD [address] [place] [address], [address] [place], [place] [id number] DAVINCI LEFT OOPHORECTOMY POSSIBLE RIGHT OOPHORECTOMY [34901 (CPT )] [facility] Comment on above: DAVINCI LEFT OOPHORE CTOMY POSSIBLE RIGHT OOPHORECTOMY [80493 (CPT )] Start: 01-13-2024 End: 01-13-2024 Laparoscopy w/rmvl adnexal structures DAVINCI OOPHORECTOMY PELVIC PAIN, PELVIC MASS 01/13/2024 7:30 AM EDT [facility] Start: 01-13-2024 Subsequent hospital visit by physician 01/13/2024 7:30 AM EDT Hospital Encounter [address] [phone] Gurpreet Allison MD [facility], [address] [place] [address] [facility] - Surgery Start: 01-09-2024 End: 01-08-2025 Gamma glutamyl transferase [Enzymatic activity/volume] in Serum or Plasma Gamma GT Lab Routine Elevated serum gamma-glutamyl transferase level Expected: 01/09/2024 (Approximate), Expires: 01/08/2025 [facility] Work Phone: Comment on above: Expected: 01/09/2024 (Approximate), Expires: 01/08/2025 Start: 01-09-2024 End: 01-08-2025 US Abdomen limited US LIVER Imaging Routine Alkaline phosphatase elevation Elevated serum gamma-glutamyl transferase level Expected: 01/09/2024 (Approximate), Expires: 01/08/2025 [facility] Comment on above: Expected: 01/09/2024 (Approximate), Expires: 01/08/2025 Start: 01-09-2024 End: 01-09-2024 Patient encounter procedure [facility] Comment on above: Arrived Start: 01-02-2024 End: 01-02-2024 Patient encounter procedure 01/02/2024 8:45 AM EDT Procedure [facility] On [address] [phone] [facility] On [facility] Start: 12-14-2023 End: 12-14-2023 Patient encounter procedure [facility] Comment on above: Morbid (severe) obes ity due to excess calories (CMS/HCC); Body mass index (BMI) 40.0-44.9, adult (CMS/HCC) Start: 12-13-2023 End: 12-12-2024 CT Abdomen and Pelvis W contrast IV CT abdomen pelvis w IV contrast Imaging Routine Alkaline phosphatase elevation Elevated serum gamma-glutamyl transferase level Expected: 12/13/2023 (Approximate), Expires: 12/12/2024 [facility] Work Phone: Comment on above: Expected: 12/13/2023 (Approximate), Expires: 12/12/2024 Start: 12-04-2023 COVID-19 Vaccine () COVID-19 Vaccine ( season) [facility] Start: 12-04-2023 COVID-19 Vaccine () COVID-19 Vaccine () [facility] Start: 12-04-2023 Influenza vaccination Influenza Vacc ine [facility] Start: 11-30-2023 End: 11-30-2023 Patient encounter procedure 11/30/2023 9:00 AM EDT Office Visit [facility] [address] [place] [address] Linda Redmond NP [address] [place] [address] [facility] Start: 08-29-2004 Screening for malign ant neoplasm of cervix Pap Smear [facility] Start: 08-29-2001 Adult BMI Follow Up Plan Adult BMI F ollow Up Plan [facility] Start: 1995 Depression Screening Depression Scre ening [facility] Start: 1995 Tobacco Screening Tobacco Screening [facility] Start: 08-29-1994 DTaP,Tdap and Td Vac cines (5 - Tdap) DTaP,Tdap and Td Vaccines (5 - Tdap) [facility] Actin smooth muscle IgG Ab [Units/volume] in Serum [facility] Alkaline phosphatase - bone isoenzyme measurement [facility] Alkaline phosphatase [Enzymatic activity/volume] in Serum or Plasma [facility] Alkaline phosphatase isoenz panel - Serum or Plasma [facility] Alpha 1 antitrypsin [Mass/volume] in Serum or Plasma [facility] Alpha 1 antitrypsin [Mass/volume] in Serum or Plasma [facility] Alpha 1 antitrypsin phenotyping [Identifier] in Serum or Plasma by Immunofixation [facility] End: 12-20-2024 CBC W Auto Differential panel - Blood CBC with auto diff Lab Routine Pelvic pain Pelvic mass Preop testing 1 Occurrences starting 12/21/2023 until 12/20/2024 [employer] Work Phone: Comment on above: 1 Occurrences starti ng 12/21/2023 until 12/20/2024 Ceruloplasmin [Mass/volume] in Serum or Plasma [facility] End: 12-20-2024 Comprehensive metabolic 2000 panel - Serum or Plasma Comprehensive metabolic panel Lab Routine Pelvic pain Pelvic mass Preop testing 1 Occurrences starting 12/21/2023 until 12/20/2024 [employer] Comment on above: 1 Occurrences starti ng 12/21/2023 until 12/20/2024 Hepatic function panel [facility] Hepatitis A virus Ab [Presence] in Serum by Immunoassay [facility] Hepatitis A virus antibody, IgM type [facility] Hepatitis B core ant ibody measurement [facility] Hepatitis B core ant ibody measurement, IgM type [facility] Hepatitis B virus santiago rface Ab [Presence] in Serum [facility] Hepatitis B virus santiago rface Ag [Presence] in Serum or Plasma by Immunoassay [facility] Hepatitis C virus Ig G Ab [Presence] in Serum or Plasma by Immunoassay [facility] HFE gene mutations f ound [Identifier] in Blood or Tissue by Molecular genetics method Nominal [facility] Homogenous nuclear A b pattern [Titer] in Serum [facility] IgG [Mass/volume] in Serum or Plasma [facility] Intestinal alkaline phosphatase measurement [facility] Lipoprotein a [Moles/volume] in Serum or Plasma [facility] Mitochondria M2 IgG Ab [Units/volume] in Serum [facility] Nuclear Ab [Titer] i n Serum [facility] US Liver [facility] Immunizations Immunization Date Immunization Notes Care Provider Fa cility 08-16-2020 SARS-CoV-2 (COVID-19 ) mRNA-1273 vaccine Halley JOY [facility] Comment on above: Result Comment: 2021: TPVALL 07-19-2020 SARS-CoV-2 (COVID-19 ) mRNA-1273 vaccine Halley JOY [facility] Comment on above: Result Comment: 2021: TPVALL 11-16-2001 meningococcal polysaccharide vaccine (MPSV4) Josh Mohini DO Work Phone: [facility] 11-15-2001 hepatitis B vaccine, pediatric or pediatric/adolescent dosage Josh Mohini DO Work Phone: [facility] 12-24-1985 haemophilus influenz ae type b vaccine, conjugate unspecified formulation Josh Mohini DO Work Phone: [facility] 05-28-1985 diphtheria, tetanus toxoids and pertussis vaccine Josh Mohini DO Work Phone: [facility] 05-28-1985 measles, mumps and rubella virus vaccine Josh Mohini DO Work Phone: [facility] 05-28-1985 trivalent poliovirus vaccine, live, oral Josh Mohini DO Work Phone: [facility] 03-20-1984 diphtheria, tetanus toxoids and pertussis vaccine Josh Mohini DO Work Phone: [facility] 1985 diphtheria, tetanus toxoids and pertussis vaccine Josh Mohini DO Work Phone: [facility] 1985 trivalent poliovirus vaccine, live, oral Josh Mohini DO Work Phone: [facility] 1985 diphtheria, tetanus toxoids and pertussis vaccine Josh Mohini DO Work Phone: [facility] 1983 trivalent poliovirus vaccine, live, oral Josh Mohini DO Work Phone: [facility] NEGATED: Highlighted row has not occurred!03-05-2022 influenza virus vaccine, unspecified formulation Halley JOY [facility] Payers Date Payer Category Payer [facility] [id number] 2024 Unknown [id number] 2023 Self-pay 2021 Commercial Managed C are - POS [employer] [id number] 2021 Managed Care HMO (unspecified) [id number] 2021 Private Health Insurance [employer] A ETNA POS II [id number] 2021-Present [phone] [address] [place] [address] [id number] 2010 Unknown [id number] 1983 Unknown [id number] 2.16.840.1.944071.3.57 9.2.727 1983 Unknown [id number] 2.16.840.1.466056.3.57 9.2.727 1983 Unknown [id number] 2.16.840.1.037138.3.57 9.2.727 1983 Unknown [id number] 2.16.840.1.770884.3.57 9.2.593 1983 Unknown [id number] 2.16.840.1.947617.3.57 9.2.593 1983 Unknown [id number] 2.16.840.1.325646.3.57 9.2.593 1983 Unknown [id number] 2.16.840.1.723643.3.57 9.2.593 1983 Unknown [id number] 2.16.840.1.762204.3.57 9.2.593 1983 Unknown [id number] 2.16.840.1.169045.3.57 9.2.593 1983 Unknown [id number] 2.16.840.1.493762.3.57 9.2.593 1983 Unknown [id number] 2.16.840.1.289336.3.57 9.2.593 1983 Unknown [id number] 2.16.840.1.298149.3.57 9.2.593 1983 Unknown [id number] 2.16.840.1.204631.3.57 9.2.593 1983 Unknown [id number] 2.16.840.1.378333.3.57 9.2.593 1983 Unknown [id number] 2.16.840.1.084018.3.57 9.2.593 1983 Unknown [id number] 2.16.840.1.502109.3.57 9.2.593 1983 Unknown [id number] 2.16.840.1.928547.3.57 9.2.1286 1983 Unknown [id number] 2.16840.1.773766.3.57 9.2.128 1983 Unknown [id number] 2.16840.1.150654.3.57 9.2.128 1983 Unknown [id number] 2.840.1.144074.3.57 9.2.128 1983 Unknown [id number] 2.840.1.300295.3.57 9.2.128 1983 Unknown [id number] 2.840.1.584686.3.57 9.2.128 1983 Unknown [id number] 2.840.1.439770.3.57 9.2.1285 1983 Unknown [id number] 2.0.1.926105.3.57 9.2.128 1983 Unknown [id number] 2.840.1.016078.3.57 9.2.128 1983 Unknown [id number] 2.0.1.476669.3.57 9.2.1285 1983 Unknown [id number] 2.840.1.859313.3.57 9.2.128 1983 Unknown [id number] 2.0.1.691275.3.57 9.2.128 1983 Unknown [id number] 2.840.1.975809.3.57 9.2.125 1983 Unknown [id number] 2.840.1.222667.3.57 9.2.125 1983 Unknown [id number] 2.16840.1.187362.3.57 9.2.125 1983 Unknown [id number] 2.840.1.206299.3.57 9.2.1259 1983 Unknown [id number] 2.16840.1.004672.3.57 9.2.1259 1983 Unknown [id number] 2.16.840.1.328905.3.57 9.2.1259 1959 Private Health Insurance [id number] Unknown [id number] 2.16.840.1.914625.3.57 9.2.531 Unknown [id number] 2.16.840.1.576032.3.57 9.2.531 Unknown [id number] 2.16.840.1.030847.3.57 9.2.531 Unknown [id number] 2.16.840.1.379994.3.57 9.2.531 Social History Date Type Detail Facility Start: 03-05-2022 End: 08-23-2022 Tobacco smoking status Never smoked tobacco (finding) [facility] Tobacco smoking status Never [facility] Start: 08-24-2023 End: 11-27-2024 Sex Assigned At Female [facility] Start: 1985 Sex Assigned At Female [facility] Start: 08-23-2022 End: 12-21-2023 Tobacco use and exposure Smokeless tobacco non-user [facility] Start: 12-14-2023 End: 11-27-2024 Alcoholic beverage intake Ex-drinker (finding) [facility] Start: 08-24-2023 End: 12-14-2023 Alcoholic beverage intake [facility] Do you belong to any clubs or organizations such as sikh groups, unions, fraternal or athletic groups, or [...] [OSQ] Rather much [facility] (I/We) worried [facility] (my/our) food would run out before (I/we) got money to buy more. Never true [facility] In the past 12 month s, was there a time when you were not able to pay the mortgage or rent on time? No [facility] Start: 08-31-2023 Alcohol Comment caffine: 1 cup of coffee and 2 cups soda daily [facility] Start: 1985 Sex assigned at Not on file [facility] Start: 03-22-2024 End: 08-01-2024 Alcoholic beverage intake Current drinker of alcohol (finding) [facility] Start: 07-19-2020 End: 08-14-2024 Sex Female (finding) [facility] Start: 01-02-2024 Alcohol Comment social [facility] Start: 12-21-2023 Alcohol Comment 1 glass of win e a month if at all [facility] Functional Status Date Assessment Result Facility 03-05-2022 Functional Status N/A [facility] Clinical Notes 03-05-2022 to 11-27-2024 Telephone Encounter - Linda Redmond NP - 11/27/2024 9:28 AM EDTTelephone Encounter - Linda Redmond NP - 11/27/2024 9:28 AM EDTLdeedee Rdemond NP - 11/27/2024 9:00 AM EDT Note Date & Type Note Facility 11-27-2024 Telephone encount er Note Please call [facility] to get copies of labs done in last few months [facility] 11-27-2024 Miscellaneous Notes Formattin g of this note might be different from the original. Please call [facility] to get copies of labs done in last few months [place] documented in this encounter [facility] 11-27-2024 History of Presen t illness Narrative Images from the original note were not included. Emily Moy is a 39 y.o. female presents with [...] Size: Large adult) Pulse 75 Temp 97.5 F (Temporal) Resp 20 Wt 265 lb 3.2 oz SpO2 98% BMI 42.80 kg/m OB Status Hysterectomy Smoking Status Never BSA 2.36 m Physical Exam Vitals and nursing note [...] conditions allow) Follow up yearly and prn Associated Problem(s): Encounter for adult wellness visit Reviewed Ht/Wt/BMI Recommend eye exam yearly Recommend dental exams twice a year Balance work/leisure activities Exercises is recommended most days of the week (appropriate as chronic conditions allow) Follow up yearly and prn Associated Problem(s): Anxiety and depression Under the care of psych for this as well as attending counseling Current meds: klonopin, as well as buspar Is going to be having some treatment coming up starting next week No SI Associated Problem(s): Alkaline phosphatase elevation DAVID was negative Has been referred to GI for this Associated Problem(s): Elevated serum gamma-glutamyl transferase level Neg DAVID level Has been referred to GI for this Associated Problem(s): Iron deficiency anemia Hx of this in the past, Associated Problem(s): Morbid (severe) obesity due to excess calories (CMS-HCC) Discussed with patient their BMI (actual, verses recommended). We have also discussed lifestyle modifications: attempts to perform physical activity as chronic conditions allow, also to monitor dietary intake: increasing protein/fruits/veggies and lowering carb intake (unless contraindicated). Limit sodas, juices, and sugary drinks. documented in this encounter [facility] 10-09-2024 Evaluation note Authored October 09, 2024 1:33p m 39-year-old female with MASL D came today for follow up Ultrasound on 01/11/2024 showed mild fatty infiltration of the liver and cholelithiasis with possible gallbladder polyps. Patient has obesity class III which is a risk factor for MASLD Laboratory workup for infectious autoimmune or metabolic etiologies of liver disease were unremarkable. US on 08/13/24 showed unremarkable liver FibroScan normal 08/21/2024 showed LSM: 8 and CAP: 307 -Will prescribe Alie Author Patricia [facility] Authored August 06, 2024 11:04a m 38-year-old female referred to the GI clinic for evaluation of elevated alkaline phosphatase. ALP on 05/31/2024 is 130. ALT/AST on 05/31/2024 is 38/25 Ultrasound on 01/11/2024 showed mild fatty infiltration of the liver and cholelithiasis with possible gallbladder polyps. Patient has obesity class III which is a risk factor for MASLD - Will get laboratory workup for infectious autoimmune or metabolic etiologies of liver disease. -Will arrange for FibroScan and check health. -Will arrange for ultrasound gallbladder to reevaluate gallbladder polyps. [facility] Work Phone: 1(718) 657-711705-12-2025 Radiology Diagnostic study [facility] [place] [address] [place] [address] Ultrasound Report Signed Patient: Emily Moy MR#: [id number] : 1985 Acct:[id number] Age/Sex: 38 / F ADM Date: 5 Loc: Room: Type: [facility] Attending Dr: Patricia Caraballo MD Ordering Provider: Patricia Caraballo MD Date of Service: 08/13/24 US/US liver: K76.0 - Fatty (change of) liver, not elsewhere classified Copies to: Patricia Caraballo MD~ LIMITED ABDOMINAL ULTRASOUND: CLINICAL HISTORY: Fatty liver. COMPARISON: None TECHNIQUE: Grayscale and color Doppler images of the right upper quadrant organswere obtained. FINDINGS: Pancreas: Visualized portions appear unremarkable. Liver: Unremarkable. Gallbladder: Cholelithiasis. CBD: 3 mm RT KIDNEY: No Hydronephrosis US/US liver IMPRESSION: CHOLELITHIASIS WITHOUT SONOGRAPHIC EVIDENCE OF ACUTE CHOLECYSTITIS.. Impression dictated by: Toro Louise Jr., D.O. 08/13/2024 11:23 AM Dictation Location: [place] [address] Tech: Leathajaimie Leslie Transcribed By: CARISSA 08/13/24 112 Dictated By: Toro Louise Jr, DO 08/13/24 1122 Signed By: 08/13/24 1123 [facility]05-05-2025 Evaluation note* Author Patricia Caraballo [facility] Authored August 06, 2024 11:04a m 38-year-old female referred to the GI clinic for evaluation of elevated alkaline phosphatase. ALP on 05/31/2024 is 130. ALT/AST on 05/31/2024 is 38/25 Ultrasound on 01/11/2024 showed mild fatty infiltration of the liver and cholelithiasis with possible gallbladder polyps. Patient has obesity class III which is a risk factor for MASLD - Will get laboratory workup for infectious autoimmune or metabolic etiologies of liver disease. -Will arrange for FibroScan and check health. -Will arrange for ultrasound gallbladder to reevaluate gallbladder polyps. [facility] Work Phone: 1(763) 743-110904-30-2025 History of Present illness Narrative* CASEY Gastelum - 08/01/2024 9:30 AM EDT Subjective: Emily is a 38 y.o. female s/p RA-BSO on 01/13/24 for stage IV endometriosis. She is doing very well. She has been on the combi patch for menopause symptoms and is doing well with it. She reports that it is managing her hot flashes well and she is tolerating it without any issues or concerns. here for consultation from for evaluation and management of Left-sided endometrioma. The patient was recently taken back for a diagnostic laparoscopy and had a left ovarian cystectomy for anendometrioma the pathology returned benign as an endometriotic cyst. However due to the significantintra-abdominal adhesive disease in the pelvis the entire ovary was unable to be fully removed. Shehas a history of a previous hysterectomy. Last mammogram: September 2023 - negative Emily : Denies Early satiety Denies Abdominal [...] LEFT URETEROLYSIS Bilateral 01/13/2024 Performed by Gurpreet Allison MD at [facility] HYSTERECTOMY LAPAROSCOPIC HYSTERECTOMY [...] items are noted in HPI. Objective: BP 118/64 Pulse 72 Resp 16 Ht 167.6 cm (5' 5.98 ) Wt 117 kg (258 lb) SpO2 98% BMI 41.66kg/m ECO General appearance: alert, appears stated age and cooperative Head: Normocephalic, without obvious abnormality, atraumatic Extremities: extremities normal, atraumatic, no cyanosis, pulses intact Pulses: 2+ and symmetric Lymph nodes: Cervical, supraclavicular, and axillary nodes [...] Gallstones - she was evaluated by Dr Ybarra, but is planning to wait on a cholecystectomy at this time as she is completely asymptomatic 5. 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 Screening for breast cancer - UTD, repeat September 2024, discussed importance of screening Total time spent was 25 minutes: Preparing to see the patient (e.g., review of tests) Performing a medically appropriate examination and/or evaluation Counseling and educating the patient/family/caregiver Ordering medications, tests, or procedures Referring and communicating with other health care taker (not separately reported) Documenting clinical information in the electronic or other health record CASEY GASTELUM Dr. was physically present in the office, available for the entirety of the patient's visit,and participated in the coordination of treatment plan. CASEY Gastelum 08/01/24 1004 [facility] Evaluation note* Author Patricia Caraballo [facility] [facility] [place] Authored August 06, 2024 11:04a m 38-year-old female referred to the GI clinic for evaluation of elevated alkaline phosphatase. ALP on 05/31/2024 is 130. ALT/AST on 05/31/2024 is 38/25 Ultrasound on 01/11/2024 showed mild fatty infiltration of the liver and cholelithiasis with possible gallbladder polyps. Patient has obesity class III which is a risk factor for MASLD - Will get laboratory workup for infectious autoimmune or metabolic etiologies of liver disease. -Will arrange for FibroScan and check health. -Will arrange for ultrasound gallbladder to reevaluate gallbladder polyps. [facility] Work Phone: [phone] 660-504602-26-2025 History of Present illness Narrative* ALEJANDRA ROD - 05/30/2024 9:20 AM EST Pt did not get gallbladder surgery- was scheduled on 04/02 however she was very sick. She has triedseveral times to reschedule. She was trying to reach dr. Ybarra at [facility] in [place]. Pt states she has no pain, no nausea, no diarrhea, no constipation, no acid reflex, no other symptoms. * Linda Redmond NP - 05/30/2024 9:20 AM EST Images from the original note were not included. Emily Moy is a 38 y.o. female presents with chief complaint of No chief complaint on file. HPI: Pt did not get gallbladder surgery- was scheduled on 04/02 however she was very sick. She has triedseveral times to reschedule. She was trying to reach dr. Ybarra at [facility] in [place]. Pt states she has no pain, no nausea, no diarrhea, no constipation, no acid reflex, no other symptoms. Hx of elevated Alk Phos and GGT, and was going to have rechecked after hyst, and we were waiting about 2 months She was also scheduled to have gall bladder removed. SUBJECTIVE: MEDICATIONS: Current Outpatient Medications Medication Instructions busPIRone (BUSPAR) 7.5 mg, 2 times daily clonazePAM (KLONOPIN) 0.5 mg, 2 times daily estradiol-norethindrone (Combipatch) 0.05-0.14 MG/DAY 1 patch, 2 [...] and food allergies. PAST MEDICAL HISTORY Past Surgical History: Procedure Laterality Date [...] in her father. OBJECTIVE: Visit Vitals BP 118/88 (BP Location: Left arm, Patient Position: Sitting, BP Cuff Size: Large adult) Pulse 95 Temp 98.7 F (Temporal) Resp 18 Wt 257 lb Comment: with winter coat on SpO2 98% BMI 41.48 kg/m OB Status Hysterectomy Smoking Status Never [...] distress. Breath sounds: Normal breath sounds. No wheezing. Abdominal: General: Bowel sounds are [...] ASSESSMENT AND PLAN: Follow up in about 6 months (around 11/27/2024) for Recheck. Problem List Items Addressed This Visit Anxiety and depression (CMS/HCC) Under the care of psych for this as well as attending counseling Current meds: klonopin, as well as buspar Morbid (severe) obesity due to excess calories (CMS/HCC) Discussed with patient their BMI (actual, verses recommended). We have also discussed lifestyle modifications: attempts to perform physical activity as chronic conditions allow, also to monitor dietary intake: increasing protein/fruits/veggies and lowering carb intake (unless contraindicated). Limit sodas, juices, and sugary drinks. Alkaline phosphatase elevation DAVID was negative We did talk about possible recheck of labs a few months after hyst If still elevated will send to GI Relevant Orders Gamma GT Comprehensive metabolic panel Elevated serum gamma-glutamyl transferase level Neg DAVID level We did speak about possible recheck of labs a few months after hyst If still elevated will send to GI Relevant Orders Gamma GT Comprehensive metabolic panel Body mass index (BMI) 40.0-44.9, adult (CMS/HCC) Calculus of gallbladder without cholecystitis without obstruction - Primary Was evaluated with general surgery in 03/27 Was supposed to have surgery, was sick and had to cancel However surgeon was not sure either about surgery since no pain ALK Phos and GGT elevation may be related * Linda Redmond NP - 05/30/2024 6:35 AM ESTAssociated Problem(s): Elevated serum gamma-glutamyl transferase level Neg DAVID level We did speak about possible recheck of labs a few months after hyst If still elevated will send to GI * Linda Redmond NP - 05/30/2024 6:35 AM ESTAssociated Problem(s): Alkaline phosphatase elevation DAVID was negative We did talk about possible recheck of labs a few months after hyst If still elevated will send to GI * Linda Redmond NP - 05/30/2024 6:31 AM ESTAssociated Problem(s): Anxiety and depression (CMS/HCC) Under the care of psych for this as well as attending counseling Current meds: klonopin, as well as buspar * Linda Redmond NP - 05/30/2024 6:30 AM ESTAssociated Problem(s): Morbid (severe) obesity due to excess calories (CMS/HCC) Discussed with patient their BMI (actual, verses recommended). We have also discussed lifestyle modifications: attempts to perform physical activity as chronic conditions allow, also to monitor dietary intake: increasing protein/fruits/veggies and lowering carb intake (unless contraindicated). Limit sodas, juices, and sugary drinks. * Linda Redmond NP - 05/30/2024 6:30 AM ESTAssociated Problem(s): Calculus of gallbladder without cholecystitis without obstruction Was evaluated with general surgery in 03/27 Was supposed to have surgery, was sick and had to cancel However surgeon was not sure either about surgery since no pain ALK Phos and GGT elevation may be related documented in this [facility]02-26-2025 Instructions* Patient Instructions* Linda Redmond NP - 05/30/2024 9:20 AM EST Recheck labs, if levels are still elevated I will send you to see a Chief Power Dispatcher for further evaluation documented in this [facility]01-29-2025 History of Present illness Narrative* CASEY Gastelum - 05/02/2024 9:30 AM EST Subjective: Emily is a 38 y.o. female s/p RA-BSO on 01/13/24 for stage IV endometriosis. She is doing very well. She has been on the combi patch for menopause symptoms and is here today for a medication check.She reports that it is managing her hot flashes well and she is tolerating it without any issues orconcerns. here for consultation from for evaluation and management of Left-sided endometrioma. The patient was recently taken back for a diagnostic laparoscopy and had a left ovarian cystectomy for anendometrioma the pathology returned benign as an endometriotic cyst. However due to the significantintra-abdominal adhesive disease in the pelvis the entire ovary was unable to be fully removed. Shehas a history of a previous hysterectomy. Emily [...] LEFT URETEROLYSIS Bilateral 01/13/2024 Performed by Gurpreet Allison MD at [facility] [...] Gallstones - she was evaluated by Dr Ybarra, but is planning to wait on a [...] Referring and communicating with other health care taker (not separately reported) Documenting clinical information in the electronic or other health record CASEY GASTELUM Dr. was physically present in the office, available for the entirety of the patient's visit,and participated in the coordination of treatment plan. CASEY Gastelum 05/02/24 0953 documented in this encounterMayo Memorial HospitalSeemage [id number] Instructions* Patient Instructions* Sivtlana Cohen RN - 03/21/2024 1:15 PM EST Your surgery/procedure is scheduled at [facility] on 04/02/2024 at 7:30 am Arrival Time 5:30 am [facility] Address: [address] [place] [address] in Parking lot located on [facility]. Report to the Entrance B. Check in at the information desk the surgery. The waiting room located on the second floor. If you have any questions prior to surgery, please call Pre-Admission Clinic at [phone] between 7:30 am and 4:30 pm Tuesday through Tuesday. If you have questions the morning of surgery, please call the Pre-op Department at [phone]. Notify your SURGEON if you develop any [...] weekly, hold 1 week prior to surgery: Ramirounjaro . Blood thinners: Please contact your prescribing [...] specifically instructed by your surgeon to hold. STOPtaking all herbal products/teas one week prior to [...] piercings ,hair extensions that contain metal, nail kosovan, make-up, and contact lens. You may brush [...] items and leave them in the car untilyou are taken to your room after surgery. [...] following some types of surgeries involving the eyes,ears, sinuses and throat. Always follow your doctor's [...] RIGHTS AND RESPONSIBILITIES As a patient at [facility], you have the right to: Receive medical care and be informed of who is taking care of you Be treated with dignity and respect Have a family member/sales representative printing of choice and your physician notified of your admission Receive information and actively participate in decisions about your care and treatment Refuse care, treatment and services Decide who may provide your support and speak for you Access muslim and spiritual services Participate in ethical issues [...] hospital charges and payment methods Patient/patient sales representative printing responsibilities are to: Provide information about health status to facilitate care, treatment and services Follow the treatment, plan, keep appointments and speak up when you do not understand the plan Respect the rights of other patients and healthcare personnel Follow organizational rules and regulations that support quality care and a safe environment Fulfill financial obligations as promptly as possible documented in this encounterACMC Healthcare [facility] Glen[facility]ighEdinburgh [facility] [id number] History of Present illness Narrative* Eleni Ybarra MD - 03/19/2024 2:00 PM EST Images from the original note were not included. CHIEF COMPLAINT: abnormal labs History of Present Illness: Emily Moy is a 38 y.o. female with PMHx of anxiety, depression, and recent oophorectomy and prior surgical history of hysterectomy. 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 has been checking her labs and noted [...] LEFT URETEROLYSIS Bilateral 01/13/2024 Performed by Gurpreet Allison MD at [facility] [...] by mouth 3 (three) times a day asneeded for anxiety., Disp: , Rfl: estradiol-norethindrone acet (COMBIPATCH) 0.05-0.14 mg/24 hr, Place 1 patch on the skin 2 (two) times a week., Disp: 8 patch, Rfl: 3 FOLIC ACID ORAL, Take 5 mg by mouth in the morning., Disp: , Rfl: hxdtralahskp-Ey-saty-minerals tablet, Take 1 tablet by mouth in [...] Resource Strain: Low Risk (08/24/2023) Received from [facility] Overall Financial Resource Strain (CARDIA) Difficulty of Paying Living Expenses: Not hard at all Food Insecurity: No Food Insecurity (03/19/2024) Hunger Screening Food Insecurity - Worry: Never True Food Insecurity - Inability: Never True Transportation Needs: No Transportation Needs (08/24/2023) Received from [facility] PRAPARE - Transportation Lack of Transportation (Medical): No Lack of Transportation (Non-Medical): No Physical Activity: Inactive (08/24/2023) Received from [facility] Exercise Vital Sign Days of Exercise per Week: 0 days Minutes of Exercise per Session: 0 min Stress: Stress Concern Present (08/24/2023) Received from [facility] [employer] - Occupational Stress Questionnaire Feeling of Stress : Rather much Social Connections: Socially Integrated (08/24/2023) Received from [facility] Social Connection and Isolation Panel [NHANES] Frequency of Communication with Friends and Family: Once a week Frequency of Social Gatherings with Friends and Family: Twice a week Attends Restorationism Services: More than 4 times per year Active Member of Clubs or Organizations: Yes Attends Club or Organization Meetings: More than 4 times per year Marital Status: Interpersonal Safety: Not on file Housing Instability: Low Risk (08/24/2023) Received from [facility] Housing Stability Vital Sign Unable to Pay [...] , PROTIME Imaging: Independently reviewed. Assessment: Emily Moy is a 38 y.o.female with elevated liver enzymes in the setting of cholelithiasis.She would like operative intervention. Plan: - robotic assisted cholecystectomy MD ROSEANNA General Surgery Resident, [facility] General Surgery [facility] General Surgery Robotic Surgery Surgical Critical Care [phone] documented in this encounterSycamore Medical Center11-21-2024 History of Present illness Narrative* Linda Redmond NP - 02/23/2024 11:15 AM ESTAssociated Problem(s): Alkaline phosphatase elevation Recheck labs, GGT and DAVID * Linda Redmond NP - 02/23/2024 11:14 AM ESTAssociated Problem(s): Elevated serum gamma-glutamyl transferase level Repeat labs and add GGT and DAVID level * Linda Redmond NP - 02/23/2024 11:14 AM ESTAssociated Problem(s): Subacute maxillary sinusitis Will prescribe doxy 100mg BID for 10 days Fluids, fu if not better * Linda Redmond NP - 02/23/2024 11:14 AM ESTAssociated Problem(s): Morbid (severe) obesity due to excess calories (CMS/HCC) Discussed with patient their BMI (actual, verses recommended). We have also discussed lifestyle modifications: attempts to perform physical activity as chronic conditions allow, also to monitor dietary intake: increasing protein/fruits/veggies and lowering carb intake (unless contraindicated). Limit sodas, juices, and sugary drinks. * Linda Redmond NP - 02/23/2024 11:13 AM ESTAssociated Problem(s): Calculus of gallbladder without cholecystitis without obstruction Has appt on 03/19/24 w general surgeon No acute pain or NV at this time * ALEJANDRA ROD - 02/23/2024 10:30 AM EST Pt started having sinus congestion last Tuesday with headaches, itchy and painful ears, sinus pressure in the face, swollen jaw and throat glands, stuffy/ runny nose, dry cough, body aches over the weekend with cold chills. Pt is now on a new patch since having her ovaries removed she was having nausea vomiting and diarrhea for a couple weeks but has subsided since. * Linda Redmond NP - 02/23/2024 10:30 AM EST Images from the original note were not included. Emily Moy is a 38 y.o. female presents with [...] been no fever. Associated symptoms include congestion, headachesand sinus pressure. Pertinent negatives include no chills, [...] (Vibra-Tabs) 100 MG tablet documented in this [facility]11-21-2024 Instructions* Patient Instructions* Linda Redmond NP - 02/23/2024 10:30 AM EST Repeat the labs Doxycycline 100mg twice a day for 10 days for sinus infection, drink fluids Keep appt with general surgeon about the gall stones 03/19/24 documented in this [facility]10-30-2024 History of Present illness Narrative* CASEY Gastelum - 02/01/2024 10:06 AM EDT Referral placed to Dr. Ybarra for gallbladder issues. Will also change estrogen patch to Combi patchfor 6 months due to extensive endometriosis. CASEY Gastelum 02/01/24 1009 documented in this [facility]10-29-2024 History of Present illness Narrative* CASEY Gastelum - 01/31/2024 11:30 AM EDT Subjective: Emily is a 38 y.o. female [...] and had a left ovarian cystectomy for anendometrioma the pathology returned benign as an endometriotic cyst. However due to the significantintra-abdominal adhesive disease in the pelvis the entire ovary was unable to be fully removed. Shehas a history of a previous hysterectomy. Emily [...] LEFT URETEROLYSIS Bilateral 01/13/2024 Performed by Gurpreet Allison MD at [facility] 2022 Past Medical History: [...] JVD, supple, symmetrical, trachea midline and thyroid notenlarged, symmetric, no tenderness/mass/nodules Lungs: clear to auscultation [...] Referring and communicating with other health care taker (not separately reported) Documenting clinical information in the electronic or other health record CASEY GASTELUM Dr. was physically present in the office, available for the entirety of the patient's visit, and participated in the coordination of treatment plan. 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 Patient has obesity class III which is a risk factor for MASLD Laboratory workup for infectious autoimmune or metabolic etiologies of liver disease were unremarkable. US on 08/13/24 showed unremarkable liver FibroScan normal 08/21/2024 showed LSM: 8 and CAP: 307 -Will prescribe Rezdiffra Author [facility] Authored August 06, 2024 11:04a m 38-year-old female referred to the GI clinic for evaluation of elevated alkaline phosphatase. ALP on 05/31/2024 is 130. ALT/AST on 05/31/2024 is 38/25 Ultrasound on 01/11/2024 showed mild fatty infiltration of the liver and cholelithiasis with possible gallbladder polyps. Patient has obesity class III which is a risk factor for MASLD - Will get laboratory workup for infectious autoimmune or metabolic etiologies of liver disease. -Will arrange for FibroScan and check health. -Will arrange for ultrasound gallbladder to reevaluate gallbladder polyps. [facility] Work Phone: [phone]) 110-828410-07-2024 History of Present illness Narrative* Linda Redmond NP - 01/09/2024 10:03 AM EDTAssociated Problem(s): Nephrolithiasis Per CT findings * Linda Redmond NP - 01/09/2024 10:02 AM EDTAssociated Problem(s): Calculus of gallbladder without cholecystitis without obstruction asymptomatic * Linda Redmond NP - 01/09/2024 10:01 AM EDTAssociated Problem(s): Left ovarian cyst Cont with DIETETICS PROFESSOR for surgery * Linda Redmond NP - 01/09/2024 10:00 AM EDTAssociated Problem(s): Elevated serum gamma-glutamyl transferase level Reviewed CT scan findings Check liver US Recheck GGT I did discuss with Ej García labs and symptoms Agrees with POC * Linda Redmond NP - 01/09/2024 10:00 AM EDTAssociated Problem(s): Alkaline phosphatase elevation Will order liver US Check GGT * ALEJANDRA ROD - 01/09/2024 9:20 AM EDT Pt is having neck surgery on Tuesday. * Linda Redmond NP - 01/09/2024 9:20 AM EDT Images from the original note were not included. Emily Moy is a 38 y.o. female presents with chief complaint of No chief complaint on file. HPI: Here for a recheck. She is scheduled for surgery for ovarian mass this TuesdayJan 12. She has hadnot changes in her pelvic symptoms. She continues with elevated GGT, however she denies any acute abd pain, NV, no jaundice, no stool or urine discoloration, can some times have fluctuations in consti pation/diarrhea. She does not drink alcohol on any [...] US LIVER Left ovarian cyst Cont with DIETETICS PROFESSOR for surgery Elevated serum gamma-glutamyl transferase level - Primary Reviewed CT scan findings Check liver US Recheck GGT I did discuss with Ej García labs and symptoms Agrees with POC Relevant Orders Gamma GT US LIVER Calculus of gallbladder without cholecystitis without obstruction asymptomatic Nephrolithiasis Per CT findings documented in this encounterAudrain Medical [id number] Instructions* Patient Instructions* Johanna Gonzalez RN - 01/02/2024 8:45 AM EDT Your surgery/procedure is scheduled at [facility] on 01/13/2024 at 0730 Arrival [id number] [facility] Address: [address] [place] [address] Park in [address] Parking lot located on [facility]. Report to the Entrance B. Check in at the information desk the surgery. The waiting room located on the second floor. If you have any questions prior to surgery, please call Pre-Admission Clinic at [phone] between 7:30 am and 4:30 pm Tuesday through Tuesday. If you have questions the morning of surgery, please call the Pre-op Department at [phone]. Notify your SURGEON if you develop any [...] specifically instructed by your surgeon to hold. STOPtaking all herbal products/teas one week prior to [...] piercings ,hair extensions that contain metal, nail kosovan, make-up, and contact lens. You may brush [...] items and leave them in the car untilyou are taken to your room after surgery. [...] following some types of surgeries involving the eyes,ears, sinuses and throat. Always follow your doctor's [...] RIGHTS AND RESPONSIBILITIES As a patient at [facility], you have the right to: Receive medical care and be informed of who is taking care of you Be treated with dignity and respect Have a family member/sales representative printing of choice and your physician notified of your admission Receive information and actively participate in decisions about your care and treatment Refuse care, treatment and services Decide who may provide your support and speak for you Access muslim and spiritual services Participate in ethical issues [...] hospital charges and payment methods Patient/patient sales representative printing responsibilities are to: Provide information about health [...] Germs live on your skin. This special soapwill help lower the amount of germs so [...] skin to hard. Be sure to wash thearea of your surgery very well. If showering, [...] surgery in clean clothes. documented in this encounterSycamore Medical Center09-18-2024 History of Present illness Narrative* Gurpreet Allison MD - 12/21/2023 10:00 AM EDT Subjective: Emily is a 38 y.o. female [...] JVD, supple, symmetrical, trachea midline and thyroid notenlarged, symmetric, no tenderness/mass/nodules Lungs: clear to auscultation [...] pneumonia, myocardial infarction, stroke and even . Thepatient understands the risks and elects to proceed. 4. Total time spent was 61 minutes: Preparing to see the patient (e.g., review of tests) Obtaining and/or reviewing separately obtained history Performing a medically appropriate examination and/or evaluation Counseling and educating the patient/family/caregiver Ordering medications, tests, or procedures Referring and communicating with other health care taker (not separately reported) Documenting clinical information in the electronic or other health record Gurpreet Allison MD documented in this encounterProMedica Health [id number] History of Present illness Narrative* Linda Redmond NP - 12/14/2023 10:43 AM EDTAssociated Problem(s): Elevated serum gamma-glutamyl transferase level Will order a CT scan, to r/o liver pathology Unsure if recent DIETETICS PROFESSOR procedure is effecting this or not * Linda Redmond NP - 12/14/2023 10:41 AM EDTAssociated Problem(s): Alkaline phosphatase elevation No identifiable cause * ALEJANDRA ROD - 12/14/2023 9:20 AM EDT Pt is here to discuss and show pictures of her liver & cyst on her bowel that she had gotten/and tested after having her surgery. * Linda Redmond NP - 12/14/2023 9:20 AM EDT Images from the original note were not included. Emily Moy is a 38 y.o. female presents with chief complaint of No chief complaint on file. HPI: Since last visit with me she has had part of ovarian cyst removed. Also is now being referred to DIETETICS PROFESSOR/[facility] in [place] next week so that they can discuss removing ovary. She had her fu liver testing doneafter her surgery as we have been attempting [...] to r/o liver pathology Unsure if recent DIETETICS PROFESSOR procedure is effecting this or not Body mass index (BMI) 40.0-44.9, adult (CMS/HCC) documented in this encounterAudrain Medical [id number] History of Present illness Narrative* CASEY York - 12/01/2023 2:00 PM EDT Reason for Appointment: Patient ID: Emily Moy is a 38 y.o. 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 Pt will be referred to DR Allison to removal of left ovary due to adhesions Documented by CASEY York on behalf of: CASEY York documented in this encounterAudrain Medical [id number] NoteOP Note OPERATION DATE: 07/16/2022 ADDENDUM: Please note that a left ovarian cystectomy was performed using the LigaSure apparatus.[facility] [id number] NoteOPERATIVE NOTE OPERATION DATE: 07/26/2022 PROCEDURE: Robotic assisted laparoscopic hysterectomy with right salpingectomy, left cystectomy of endometrioma and cystoscopy. PREOPERATIVE DIAGNOSIS: Menorrhagia, dysmenorrhea, pelvic pain, dyspareunia. POSTOPERATIVE DIAGNOSIS: Menorrhagia, dysmenorrhea, pelvic pain, dyspareunia including a left ovarian endometrioma. ANESTHESIA: General. SURGEON: Josh Rajan D.O. WHEELAGE CLERK: PJ Quevedo URINE OUTPUT: Yellow and clear. [...] awakened by Anesthesia first. Patient tolerated procedure well.[facility] [id number] NoteOPERATIVE NOTE OPERATION DATE: 04/07/2022 PREOPERATIVE DIAGNOSIS: Iron deficiency anemia, nausea, upper abdominal pain, loose stools. POSTOPERATIVE DIAGNOSIS: Mild antral gastritis, redundant colon. PROCEDURE: EGD with antral biopsy and colonoscopy to terminal ileum with multiple random biopsies. SURGEON: Halley Joy M.D. ANESTHESIA: Monitored anesthesia care. ESTIMATED BLOOD [...] on the pathology results. CC: Linda Redmond, [facility]12-02-2022 NoteChief Complaint consultation for weight loss, nausea, loose [...] SARS-CoV-2 (COVID-19) mRNA-1273 vaccine 07/19/2020 Recorded 2022-03-03: XOCHILT [facility] CenterComment on above:Result Comment: Electronically Signed By: BENITA GUTIERREZ, Halley Smith\Date and Time Signed: 03/05/22 13:57 EST Evaluation + Plan note No data available for this section General Surgery [place] Evaluation noteNo assessment information available [facility] Work Phone: Evaluation note* Diagnosis Elevated serum gamma-glutamyl transferase level- Primary Alkaline phosphatase elevation Other nonspecific abnormal serum enzyme levels Morbid (severe) obesity due to excess calories (CMS/HCC) Left ovarian cyst Other and unspecified ovarian cyst Calculus of gallbladder without cholecystitis without obstruction Nephrolithiasis Calculus of kidney documented in this encounter [facility] HealthcareEvaluation note* Diagnosis Iron deficiency anemia, unspecified [...] serum enzyme levels documented in this encounter [facility] HealthcareEvaluation note* Diagnosis Iron deficiency anemia, unspecified [...] serum enzyme levels documented in this encounter [facility] HealthcareEvaluation note* Diagnosis Iron deficiency anemia, unspecified [...] cholecystitis without obstruction documented in this encounter [facility] HealthcareEvaluation note* Diagnosis Postop check Follow-up examination, following unspecified surgery documented in this encounter [facility] HealthcareEvaluation note* Diagnosis Alkaline phosphatase elevation- Primary Other nonspecific abnormal serum enzyme levels Elevated serum gamma-glutamyl transferase level documented in this encounter [facility] HealthcareEvaluation note* Diagnosis Elevated serum gamma-glutamyl transferase level- Primary Morbid (severe) obesity due to excess calories (CMS/HCC) Body mass index (BMI) 40.0-44.9, adult ([facility]/HCC) Alkaline phosphatase elevation Other nonspecific abnormal serum enzyme levels documented in this encounter [facility] HealthcareEvaluation note* Diagnosis Gall stones Calculus of gallbladder without mention of cholecystitis or obstruction documented in this encounter [facility] SystemEvaluation note* Diagnosis Endometriosis- Primary Endometriosis, site unspecified Menopause Symptomatic menopausal or female climacteric states Hot flash, menopausal Symptomatic menopausal or female climacteric states documented in this encounter [facility] SystemEvaluation note* Diagnosis Pre-op testing- Primary Unspecified pre-operative examination Pelvic pain Pelvic mass Abdominal or pelvic swelling, mass or lump, unspecified site Preop testing Unspecified pre-operative examination documented in this encounter [facility] SystemEvaluation note* Diagnosis Pelvic pain- Primary Pelvic mass Abdominal or pelvic swelling, mass or lump, unspecified site Preop testing Unspecified pre-operative examination documented in this encounter [facility] SystemEvaluation note* Diagnosis Postoperative visit- Primary documented in this encounter [facility] SystemEvaluation note* Diagnosis Gall stones- Primary Calculus of gallbladder without mention of cholecystitis or obstruction Menopause Symptomatic menopausal or female climacteric states documented in this encounter [facility] SystemEvaluation note* Diagnosis Menopause Symptomatic menopausal or female climacteric states documented in this encounter [facility] SystemEvaluation note* Diagnosis Iron deficiency anemia, unspecified iron deficiency anemia type- Primary Obesity without serious comorbidity, unspecified classification, unspecified obesity type Encounter for screening mammogram for malignant neoplasm of breast Bloating symptom Flatulence, eructation, and gas pain Pelvic pain Anxiety and depression ([facility]/HCC) Mixed hyperlipidemia (CMS/HCC)- Primary Mixed hyperlipidemia Alkaline phosphatase elevation Other nonspecific abnormal serum enzyme levels Obesity without serious comorbidity, unspecified classification, unspecified obesity type Iron deficiency anemia, unspecified iron deficiency anemia type Anxiety and depression (CMS/HCC) Elevated serum gamma-glutamyl transferase level- Primary Morbid (severe) obesity due to excess calories (CMS/HCC) Body mass index (BMI) 40.0-44.9, adult ([facility]) Alkaline phosphatase elevation Other nonspecific abnormal serum [...] Calculus of gallbladder without cholecystitis without obstruction Alkaline phosphatase elevation- Primary Other nonspecific abnormal serum enzyme levels Morbid (severe) obesity due to excess calories (CMS/HCC) Body mass index (BMI) 40.0-44.9, adult (CMS/HCC) Calculus of gallbladder without cholecystitis without obstruction Anxiety and depression (CMS/HCC) Elevated serum gamma-glutamyl transferase level documented in this encounter [facility] HealthcareEvaluation note* Diagnosis Iron deficiency anemia, unspecified [...] Calculus of gallbladder without cholecystitis without obstruction Alkaline phosphatase elevation- Primary Other nonspecific abnormal serum enzyme levels Morbid (severe) obesity due to excess calories (CMS/HCC) Body mass index (BMI) 40.0-44.9, adult (CMS/HCC) Calculus of gallbladder without cholecystitis without obstruction Anxiety and depression (CMS/HCC) Elevated serum gamma-glutamyl transferase level Alkaline phosphatase elevation- Primary Other nonspecific abnormal serum enzyme levels Elevated serum gamma-glutamyl transferase level documented in this encounter [facility] HealthcareEvaluation note* Diagnosis Menopause- Primary Symptomatic menopausal or female climacteric states Endometriosis Endometriosis, site unspecified documented in this encounter [facility] SystemEvaluation note* Diagnosis Iron deficiency anemia, unspecified iron deficiency anemia type- Primary Obesity without serious comorbidity, unspecified classification, unspecified obesity type Encounter for screening mammogram for malignant neoplasm of breast Bloating symptom Flatulence, eructation, and gas pain Pelvic pain Anxiety and depression Mixed hyperlipidemia- Primary Mixed hyperlipidemia Alkaline phosphatase elevation Other nonspecific abnormal serum enzyme levels Obesity without serious comorbidity, unspecified classification, unspecified obesity type Iron deficiency anemia, unspecified iron deficiency anemia type Anxiety and depression Elevated serum gamma-glutamyl transferase level- Primary Morbid (severe) obesity due to excess calories (CMS-HCC) Body mass index (BMI) 40.0-44.9, adult (CMS-HCC) Alkaline phosphatase elevation Other nonspecific abnormal serum enzyme levels Elevated serum gamma-glutamyl transferase level- Primary Alkaline phosphatase elevation Other nonspecific abnormal serum enzyme levels Morbid (severe) obesity due to excess calories (CMS-HCC) Left ovarian cyst Other and unspecified ovarian cyst Calculus of gallbladder without cholecystitis without obstruction Nephrolithiasis Calculus of kidney Subacute maxillary sinusitis- Primary Morbid (severe) obesity due to excess calories (CMS-HCC) Body mass index (BMI) 40.0-44.9, adult (CMS-HCC) Elevated serum gamma-glutamyl transferase level Alkaline phosphatase elevation Other nonspecific abnormal serum enzyme levels Calculus of gallbladder without cholecystitis without obstruction Alkaline phosphatase elevation- Primary Other nonspecific abnormal serum enzyme levels Morbid (severe) obesity due to excess calories (CMS-HCC) Body mass index (BMI) 40.0-44.9, adult (CMS-HCC) Calculus of gallbladder without cholecystitis without obstruction Anxiety and depression Elevated serum gamma-glutamyl transferase level Encounter for adult wellness visit- Primary Morbid (severe) obesity due to excess calories (CMS-HCC) Anxiety and depression Alkaline phosphatase elevation Other nonspecific abnormal serum enzyme levels Elevated serum gamma-glutamyl transferase level Encounter for screening mammogram for malignant neoplasm of breast documented in this encounter [facility] HealthcareHospital Discharge instructions No data available for this section General Surgery [place] InstructionsNot on filedocumented in this encounter [facility]ructionsNot on filedocumented in this encounter [facility] SystemInstructionsNot on filedocumented in this encounter [facility] SystemInstructionsNot on filedocumented in this encounter [facility] SystemInstructionsNot on filedocumented in this encounter [facility] SystemInstructionsNot on filedocumented in this encounter [facility] SystemProgress note No data available for this section General Surgery [place] Reason for referral (narrative)No reason for referral information availableUniversity [facility]als [facility] Work Phone: Summary Purpose Family History No Family History Records Found Relationship Condition Age at Onset Recorded Date/T lili son Malignant neoplasm Unknown father Malignant neoplasm Unknown brother Malignant neoplasm Unknown family member Malignant neoplasm Unknown Diabetes mellitus Unknown Heart disease Unknown maternal grandmother Diabetes mellitus Unknown mother Heart disease Unknown High blood cholesterol Unknown Hypertension Unknown Advance Directives No Advanced Directives Records Found Advance Directive Response Recorded Date/ Time Advance Directives No June 07 1:53pm Reason for Referral Specialty Diagnoses / Procedures Referred By Contac t Referred To Contact Diagnoses Pre-op testing Procedures Follow anesthesia guideines Kandice Cerrato, TOOL GRINDING MACHINE OPERATOR-SKID STRAPPER [address] [place] [address] Referral ID Status Reason Start Date Expiration Date V isits Requested Visits Authorized [id number] Pending Review 01/02/2024 01/01/2025 1 1 Specialty Diagnoses / Procedures Referred By Contac t Referred To Contact Diagnoses Pre-op testing Procedures ECG 12 lead Padma Giraldo MD [address] [place] [address] Referral ID Status Reason Start Date Expiration Date V isits Requested Visits Authorized [id number] Pending Review 01/02/2024 01/01/2025 1 1 Specialty Diagnoses / Procedures Referred By Contac t Referred To Contact Diagnoses Alkaline phosphatase elevation Elevated serum gamma-glutamyl transferase level Procedures CT abdomen pelvis w IV contrast Linda Redmond, SAULO [address] [place] [address] [facility] [address] [place] [address] Referral ID Status Reason Start Date Expiration Date V isits Requested Visits Authorized [id number] Pending Review 12/13/2023 06/10/2024 1 1 Chief Complaint and Reason for Visit Chief Complaint Admit Date Referred L Nyla: elevated Alk phos a nd GGT August 06, 2024 10:43am K76.0 R74.8 August 06, 2024 11:40a m Reason for Visit Admit Date Elevated alkaline phosphatase level August 06, 2024 10:43am Elevated serum GGT level August 06, 2024 1 0:43am Fatty liver August 06, 2024 10:43a m Chief Complaint Admit Date Referred L Nyla: elevated Alk phos a nd GGT August 06, 2024 10:43am Reason for Visit Admit Date Elevated alkaline phosphatase level August 06, 2024 10:43am Elevated serum GGT level August 06, 2024 1 0:43am Fatty liver August 06, 2024 10:43a m Additional Source Comments INFORMATION SOURCE (unrecogn ized section and content) DATE CREATED AUTHOR 05/16/2018 [facility] DATE CREATED AUTHOR AUTHOR'S ORGANIZ ATION 04/17/2022 [facility] DATE CREATED AUTHOR AUTHOR'S ORGANIZ ATION 08/03/2022 [facility] DATE CREATED AUTHOR AUTHOR'S ORGANIZ ATION 02/01/2024 [facility] DATE CREATED AUTHOR AUTHOR'S ORGANIZ ATION 03/21/2024 [facility] DATE CREATED AUTHOR AUTHOR'S ORGANIZ ATION 08/02/2024 [facility] DATE CREATED AUTHOR AUTHOR'S ORGANIZ ATION 10/13/2024 [facility] DATE CREATED AUTHOR AUTHOR'S ORGANIZ ATION 11/28/2024 [facility] EPIC Patient Care team informatio n (unrecognized section and content) Team Status: Inactive Member Role Status Dates Josh Rajan DO Attending Provider Active Start : November 25, 2023 End: November 25, 2023 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 Relationship Specialty Start Date End Date Meir García MD [address] [place] [address] PCP - General Family Medicine 08/31/23 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 Relationship Specialty Start Date End Date Meir García MD [address] [place] [address] PCP - General Family Medicine 08/31/23 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 Relationship Specialty Start Date End Date Meir García MD [address] [place] [address] PCP - General Family Medicine 08/31/23 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 [employer] Relationship Specialty Start Date End Date Meir García MD [address] [place] [address] PCP - General Family Medicine 08/31/23 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 [employer] Relationship Specialty Start Date End Date Meir García MD [address] [place] [address] PCP - General Family Medicine 08/31/23 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 [employer] Relationship Specialty Start Date End Date Meir García MD [address] [place] [address] PCP - General Family Medicine 08/31/23 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 [employer] Relationship Specialty Start Date End Date Meir García MD [address] [place] [address] PCP - General Family Medicine 08/31/23 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 [employer] Relationship Specialty Start Date End Date Meir García MD [address] [place] [address] PCP - General Family Medicine 08/31/23 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 [employer] Relationship Specialty Start Date End Date Meir García MD [address] [place] [address] PCP - General Family Medicine 08/31/23 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 [employer] Relationship Specialty Start Date End Date Meir García MD [address] [place] [address] PCP - General Family Medicine 08/31/23 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 [address] PCP - General Nurse Practitioner 01/02/24 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 [employer] Relationship Specialty Start Date End Date Meir García MD [address] [place] [address] PCP - General Family Medicine 08/31/23 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 [employer] Relationship Specialty Start Date End Date [facility] [address] [place] [address] PCP - General Nurse Practitioner 01/02/24 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 [employer] Relationship Specialty Start Date End Date [facility] [address] [place] [address] PCP - General Nurse Practitioner 01/02/24 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 Relationship Specialty Start Date End Date Linda Redmond, [facility] [address] [place] [address] PCP - General Nurse Practitioner 01/02/24 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 [employer] Relationship Specialty Start Date End Date Linda Redmond, [facility] [address] [place] [address] PCP - General Nurse Practitioner 01/02/24 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 [employer] Relationship Specialty Start Date End Date [facility] [address] 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 [employer] Relationship Specialty Start Date End Date Meir García MD [address] [place] [address] PCP - General Family Medicine 08/31/23 Team Status: Active Member Role Status Dates Linda Redmond Primary Care Provider Active Team Status: Inactive Member Role Status Dates Patricia Caraballo MD Attending Provider Active Start: August 06, 2024 End: August 06, 2024 Linda Redmond Primary Care Provide r, Referring Provider Active Start: August 06, 2024 End: August 06, 2024 Team Status: Inactive Member Role Status Dates Linda Redmond Primary Care Provider Active Sta rt: August 06, 2024 End: August 06, 2024 Patricia Caraballo MD Attending Provider Active Start: August 06, 2024 End: August 06, 2024 Team Status: Inactive Member Role Status Dates Linda Redmond Primary Care Provider Active Sta rt: August 13, 2024 End: August 13, 2024 Patricia Caraballo MD Attending Provider Active Start: August 13, 2024 End: August 13, 2024 Team Status: Inactive Member Role Status Dates Patricia Caraballo MD Attending Provider Active Start: August 06, 2024 End: August 06, 2024 Linda Redmond Primary Care Provider Active Sta rt: August 06, 2024 End: August 06, 2024 Linda Redmond Referring Provider Active Start: August 06, 2024 End: August 06, 2024 Team Status: Active Member Role Status Dates Linda Redmond Primary Care Provider Active Sta rt: August 21, 2024 Patricia Caraballo MD Attending Provider Active Start: August 21, 2024 Patricia Caraballo MD Other Provider Active Start: August 21, 2024 Team Status: Inactive Member Role Status Dates Linda Redmond Primary Care Provider Active Sta rt: October 09, 2024 End: October 09, 2024 Patricia Caraballo MD Attending Provider Active Start: October 09, 2024 End: October 09, 2024 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 Relationship Specialty Start Date End Date Meir García MD [address] [place] [address] PCP - General Family Medicine 08/31/23 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 [employer] Relationship Specialty Start Date End Date Meir García MD [address] [place] [address] PCP - General Family Medicine 08/31/23 Goals (unrecognized section and content) Goals may be documented in a n alternate section Reason for Visit (unrecogniz ed section and content) Reason Comments Post-op Visit Reason Comments New Patient gallstones Specialty Diagnoses / Procedures Referred By Marcello navas Referred To Contact General Surgery Diagnoses Gall stones Oneil Ceja PA [address], [address] [place] [address] Phone: tel: fax: [facility] [address] [place] [address] Phone: tel: fax: Referral ID Status Reason Start Date Expiration Date Visits Requested Visits Authorized [id number] Pending Review Specialty Services Required 4 01/31/2025 1 1 Reason Comments Post-op 2 weeks Reason Onset Date Comments Med Refill 05/21/2024 Reason Comments Follow-up 3 month follow-up Reason Comments Annual Exam physical FOR RECORDS PERTAINING TO PATIENTS WHO ARE [...] BE BASED ON THE PRIMARY CLINICAL RECORDS. [facility] [employer] [facility] provides no warranty or guarantee of the accuracy or completeness of information in this document.
== END 2024-11-30 10:52 | disposition home or self-care (01) ==
LOC: MAMMO 10:54
PROVIDERS: PCP Nurse Practitioner; Visit Provider Nurse Practitioner
DX: Z12.31 Encounter for screening mammogram for malignant neoplasm of breast (principal); Z80.51 Family history of malignant neoplasm of kidney; Z80.6 Family history of leukemia
CPT/HCPCS: 77063; 77067